=== PATIENT | male | born 1960 | race Caucasian/White ===

== ENCOUNTER 2025-01-12 09:40 | Outpatient (AMB) | payer BC, SELFPAY ==
--- NOTE | 2025-01-12 10:10 | A.SPINEOV_ITS ---
Intake Visit Reasons: neck pain Intake Note: Mr. Slaughter is here today c/o neck pain. 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 He is a gentleman known to Dr. Davidson from anterior cervical fusion C4-5, C5-6 in 2017. 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 About 3 or 4 weeks ago he started to notice some tingling in his right shoulder. It then progressed down into his hands and over the last few weeks has become more involved including leg weakness and gait instability. 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 The patient was discharged and was due to follow up with a local neurosurgeon there, but because of his previous experience and comfort level with Dr. Davidson he came in the office today. He has been maintained on prednisone, a leave and methocarbamol. PMH: The patient reports he has a history of refractory hypertension and is on multiple medications for this but is well controlled at this time. He has a history of a right total hip replacement, bilateral total knees in his mentioned the above anterior cervical fusion. He denies any history of heart disease. He is a lifelong smoker and still continues to smoke but denies any COPD or need for inhalers etc.. Denies any history of liver disease, kidney disease, bleeding disorders, cancer, blood clots. Social hx: He smokes about 3/4 of a pack a day, drinks a few beers a day and drinks a few nips a day, does not use any marijuana. Medications: Amlodipine, olmesartan, fexofenadine, carvedilol, methocarbamol, naproxen, omeprazole, prednisone, vitamin-C, vitamin D3 Allergies: None Physical exam: Awake alert oriented no acute distress, he had to be brought to the exam room today in a wheelchair. He has his walker with him and is able to stand up independently with the help of the walker. He has diffuse weakness throughout his upper and lower extremities which I would rate as 4-5, slightly worse in the iliopsoas muscle groups maybe these are about a 3/5. Diffusely hyperreflexic with Rose's sign and clonus. Imaging review: He has a CT, MRI and x-rays done at the [facility] showing evidence of solid fusion at C4-5 and C5-6 with adjacent segment disease at C3-4 with spinal cord compression and cord signal change. CT scan shows that there does not appear to be any calcification of the disc space at C3-4. Impression: 64-year-old gentleman with previous history of ACDF C4-5 C5-6 for spinal cord compression presents today for evaluation of further rapidly progressing myelopathic symptoms that developed about 3 or 4 weeks ago, getting steadily worse, he is at the point now where he has been using a walker to get around the house, his hands are numb, his arms and legs are weak and his MRI shows spinal cord compression at C3-4 secondary to adjacent segment disease. There is cord signal change suggesting that some degree of these symptoms maybe permanent. The patient had called Dr. Davidson to schedule a few days ago a visit in our office in anticipation of surgery. I am going to go ahead and schedule him for anterior cervical fusion C3-[address] January [address] Davidson is aware and the patient understands the urgency of the surgery. I did admonished the patient that if he is progressing too rapidly and getting worse by the day, he should follow up with the surgeon that he saw in [facility] and have his surgery expedited. He is due to stop the prednisone in a few days. He does not feel as though it is really doing anything or changing his symptoms at all. I told him to stop the naproxen 1 week before surgery. The patient will likely need to see our anesthesia team, or get some of the records from your office to clarify exactly if he has any other systemic disease than what he reports. They may want you to offer a clearance note for him or some kind of risk profile. The patient was given risk and benefits of surgery including but not limited to infection, hematoma, nerve injury, durotomy, weakness, persistent pain. We discussed that if undergoing anterior cervical fusion there may be trachea or esophageal injury, hoarseness, or difficulty swallowing. There is a risk of pseudoarthrosis or instrumentation failure if undergoing cervical fusion. We also reviewed the option to continue with conservative treatment and patient wishes to proceed with surgery. They are aware they should stop NSAIDs 7 days prior to surgery. All questions were answered to the best of our ability. If there is anything about this patient's medical history that we have overlooked or concerns you have about us proceeding with surgery we would appreciate any input you can offer Thank you for allowing us to care for your patient. The total time spent with this visit with this patient was 45 minutes reviewing history, physical exam, cervical MRI imaging review, and implementation of treatment plan or further diagnostic testing Demetrius Davidson MD,PhD [facility] Coding Level of Care Code New Pt Level 4 (51272) Diagnoses Cervical myelopathy G95.9
--- OUTSIDE RECORDS SUMMARY | 2025-01-12 10:21 | XMS_ITS | Encounter Summary ---
Author Organization [facility] Address [address] [place] [address] Care Team Providers Care Loan Originator Name Role Phone Brain Cyr Primary Care Provider [phone] Norma Rogel RN Unavailable Unavailable Encounter Details Date Type Department Care Team (Late st Contact Info) Description 05/11/2023 Scanned Document [facility] [place] at [address] [id number] Orthopedic Surgery, Scan Social History Tobacco Use Types Packs/Day Years Used Date Smoking Tobacco: Former Cigarettes 1 10 0 07/14/1989 - 07/14/1999 Smokeless Tobacco: Never Alcohol Use Standard Drinks/Week Comments Yes 14 (1 standard drink = 0.6 oz pure alcohol) 2 vy, 2 shots liquor nightly, will stop pre op . Last drink 6 days ago. Sex and Gender Information Value Date Recorded Sex Assigned at Male 05/31/2024 9:05 AM EST Legal Sex Male 2:17 PM EDT Gender Identity Male 05/31/2024 9:05 AM EST Sexual Orientation Heterosexual (straight) 05/31 9:05 AM EST documented as of this encounter Plan of Treatment Not on file documented as of this encounter Procedures Procedure Name Priority Date/Time Associated Diagnosis Comments BOOKING SHEETS-SCAN 05/11/2023 documented in this encounter Results * BOOKING SHEETS-SCAN (05/11/2023) us Scan Orthopedic Surgery HX AMB PROCEDURES Final Result documented in this encounter Visit Diagnoses Not on filedocumented in this encounter Care Teams Loan Originator Relationship Specialty Start Date End Date Brain Cyr DO PCP - General 07/14/18 Norma Rogel, LONI CT Registered Nurse 07/14/18 documented as of this encounter
--- OUTSIDE RECORDS SUMMARY | 2025-01-12 10:21 | XMS_ITS | Clinical Summary ---
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 Active amLODIPine (NORVASC) 10 mg tablet take 1 tablet by mouth once daily 90 tablet 4 12/23/2023 Active carvediloL (COREG) 25 mg tablet TAKE 2 TABLETS BY MOUTH TWICE DAILY WITH FOOD 360 tablet 3 02/29/2024 Active ALPRAZolam (XANAX) 0.25 mg tablet 1/2 to 1 tablet po 1-3 x daily prn severe anxiety -do not use daily only for rescue severe anxiety 30 tablet 1 03/14/2024 Active hydroCHLOROthia zide (MICROZIDE) capsule Take 1 capsule (12.5 mg total) by mouth in the morning. 90 capsule 3 05/20/2024 Active olmesartan (BENICAR) 40 mg tablet TAKE 1 TABLET BY MOUTH EVERY MORNING 30 tablet 5 07/08/2024 Active ascorbic acid, vitamin C, (VITAMIN C) 1,000 mg tablet Take 1,000 mg by mouth. Active Active Problems Problem Noted Date Diagnosed Date Obesity (BMI 30-39.9) 08/05/2024 Osteoarthritis of right ankle and foot Elevated PSA 05/14/2023 Assessment & Plan (06/11/2023 8:28 AM EST): Repeat Free Psa 4.4 Acceptable Suspect prostatitis as related to elevated PSA For good measure will repeat in 2 months Recheck as below Assessment & Plan (05/14/2023 9:14 AM EST): Will repeat - with free PSA Differential Dx discussed Prostatitis vs prostate carcinoma Tentative referral to urology once repeat PSA with free PSA back Recheck in 2 weeks time Sprain of deltoid ligament of right ankle 2022 Noncompliance 05/13/2023 Assessment & Plan (05/20/2024 8:12 AM EST): Please consider more regular follow up With multiple medical comorbidity at least 4x yearly Closed fracture of right ankle 01/02/2023 Adenomatous polyp of colon 06/14/2021 Assessment & Plan (05/20/2024 8:15 AM EST): Last colonoscopy 11-27-2023 see formal report In summary No adenomatous polyps colon Assessment & Plan (05/14/2023 9:15 AM EST): Asymptomatic due -- actually called by GI and will schedule earlier Assessment & Plan (04/10/2023 7:53 AM EST): Patient never followed up with GI to schedule colonoscopy See note GI care everywhere 06-29-2021 Please call and follow up with GI over due Assessment & Plan (08/28/2022 9:52 AM EDT): Please reconsider calling GI Will review again at Annual Assessment & Plan (08/08/2021 10:25 AM EST): Please call for surveillance EGD + colonoscopy Patient did not call GI yet Assessment & Plan (06/14/2021 1:08 PM EST): Will set up referral for colonoscopy surveillance Hyperglycemia 06/14/2021 Assessment & Plan (06/14/2021 1:10 PM EST): Will check HBGAic- Best effort weight and diet Recheck in 1 months time or sooner if acute concern Annual physical exam 06/13/2021 Assessment & Plan (05/20/2024 7:36 AM EST): EKG-see today Vaccinations-consider flu- Covid-RSV- Shingrix x 2- TDap Syqo-51-00-2024 Colonoscopy-last 11-27-2023 with EGD Assessment & Plan (04/10/2023 7:59 AM EST): EKG-l See today Llcx-9-11-2023 < never obtained labs > still pending Vaccinations-consider seasonal flu- RSV- Prevnar 20- Shingrix x 2 - Covid XBB1.5 -Tdap Colonoscopy- see GI note Patient never called GI back to ---> schedule 06-29-2021 Assessment & Plan (11/07/2021 11:21 AM EDT): Acceptable risk for surgery Assessment & Plan (06/14/2021 1:07 PM EST): EKG--wnl Labs--reviewed Vaccinations--consider Seasonal flu -Covid-Shingrix Tdap- PCv-13 Colonoscopy--will set up GI referral for surveillance Elevated transaminase level 02/02/2020 Assessment & Plan (02/02/2020 7:54 AM EDT): DC Etoh and --strive for weight loss Osteoarthritis of knee 05/12/2019 Anxiety 04/26/2019 Assessment & Plan (06/08/2023 12:24 PM EST): Would utilize benzo's sparingly to maintain ADl's -->Ativan rescue limited -only Assessment & Plan (05/14/2023 7:29 AM EST): ADL's baseline- please continue sparing use of rescue Benzo only Assessment & Plan (11/27/2022 8:24 AM EDT): Lorazepam rescue --> only Reviewed Rx status acceptable Assessment & Plan (01/16/2022 9:31 AM EDT): Would utilize benzo's sparingly to maintain ADl's Assessment & Plan (06/14/2021 12:05 PM EST): Benzo sparingly rescue discussed control substance standards Assessment & Plan (04/22/2021 2:36 PM EST): Refilled Ativan rescue limited -only Refilled - reviewed situational stress Assessment & Plan (03/01/2020 7:25 AM EDT): As per depression Assessment & Plan (02/02/2020 7:52 AM EDT): Clinically feeling much better -- continue Effexor Assessment & Plan (04/26/2019 9:12 AM EST): Benzo sparingly rescue discussed control substance standards Hypertensive heart disease without heart failure 04/25/2019 Assessment & Plan (06/08/2023 12:20 PM EST): Best BP management - interval imaging -- with TTE Maintenance medication -- reviewed Assessment & Plan (04/10/2023 7:17 AM EST): Please continue compulsive tracking of BP and maintenance medication as reviewed Assessment & Plan (08/28/2022 9:49 AM EDT): Please continue BP medication as reviewed and recheck as above Assessment & Plan (01/16/2022 9:27 AM EDT): Please continue compulsive tracking of BP and maintenance medication as reviewed Assessment & Plan (11/08/2021 8:13 AM EDT): Compulsive --> BP control and medication compliance with pressure support for IKE Best effort weight and diet Assessment & Plan (08/08/2021 10:22 AM EST): Best BP management - interval imaging -- with TTE Maintenance medication -- reviewed Assessment & Plan (06/14/2021 12:01 PM EST): Continue aggressive tx of hypertension and sleep apnea Best effort weight and diet Assessment & Plan (03/01/2020 7:26 AM EDT): Continue aggressive tx of hypertension and sleep apnea Best effort weight and diet Assessment & Plan (02/02/2020 7:53 AM EDT): Aggressive BP management continued Assessment & Plan (01/19/2020 8:49 AM EDT): Aggressive tx of BP Assessment & Plan (04/26/2019 9:09 AM EST): Best BP management please continue maintenance medication Arita's esophagus with esophagitis 04/25/2019 Overview (04/25/2019): egd 10/10/2013 Assessment & Plan (06/08/2023 12:21 PM EST): Presently notes asymptomatic Please continue best Anti GERD management .Mt continue PPI and best effort weight and diet Assessment & Plan (04/10/2023 7:19 AM EST): Best Anti GERD management ==please continue PPI and best effort weight and diet Assessment & Plan (01/16/2022 9:29 AM EDT): Continue interval surveillance endo see last Annual Assessment & Plan (04/26/2019 9:10 AM EST): Best Anti GERD management ==please continue PPI and best effort weight and diet Left hip pain 08/18/2018 Environmental allergies 07/15/2018 Swelling of both hands 06/09/2018 Synovitis 10/21/2017 Assessment & Plan (06/09/2018 2:52 PM EST): Symmetric both hands MCP joint Inflammatory arthritis 10/19/2017 Assessment & Plan (03/01/2020 7:26 AM EDT): Collaborative care with rheumatology [facility] Assessment & Plan (01/19/2020 8:48 AM EDT): [facility] collaborative --- asymptomatic at present Will follow clinically Assessment & Plan (04/26/2019 9:11 AM EST): No sign of flare to date Assessment & Plan (02/15/2019 2:51 PM EDT): 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 Previously improved with prednisone Seen [facility] Rheumatology Assessment & Plan (06/09/2018 2:50 PM EST): Acute exacerbation swelling in both hands Previously improved with prednisone Seen [facility] Rhe[facility] Assessment & Plan (10/27/2017 10:39 AM EDT): Differential Dx discussed in detail including: rheumatoid arthritis vs other small joint symmetrical arthritides Referral to [facility] Rheumatology - Brynn YOUSIF Will taper Prednisone by 5 mg every 3 days until off Recheck in 1 month or sooner if any acute concern Assessment & Plan (10/21/2017 8:35 AM EDT): Again Differential Dx discussed, including: inflammatory arthritis (favoring RA vs other), infectious arthritis (Lyme's testing pending) vs other Continue Prednisone - day 3/10 and Doxycycline day 3/10 Will follow clinically Recheck on Thursday or sooner if any acute concern Assessment & Plan (10/19/2017 5:16 PM EDT): Highly suspect for inflammatory joint disease vs other Differential Dx discussed includes: RA vs undifferentiated Ds Bilateral small joint symmetrical wrist/hands prominent, >> elbows - shoulders - hips FHx of rheumatoid arthritis - paternal, inflammatory bowel - son Will obtain multiple labs and bone scan / X-Ray's Will recheck on Thursday for review or sooner if any acute concern Primary osteoarthritis involving multiple joints 09/30/2017 Assessment & Plan (05/20/2024 8:17 AM EST): To date multiple joint replacement and Sx's for progressive OA Best effort weight - diet and modified ADL's Assessment & Plan (03/14/2024 7:40 AM EDT): To date multiple joint replacement and Sx's for progressive OA Best effort weight - diet and modified ADL's Assessment & Plan (05/14/2023 9:17 AM EST): Sx will be tabled until PSA issue worked up further Please continue modified ADL's Assessment & Plan (04/10/2023 7:20 AM EST): S/p major joint replacement -- best effort weight and diet Continue modified ADL's Assessment & Plan (11/27/2022 8:19 AM EDT): Presently hip more symptomatic - awaiting MACK Coping - working with [facility] Assessment & Plan (11/08/2021 8:16 AM EDT): S/p major joint replacement -- best effort weight and diet Continue modified ADL's Assessment & Plan (06/14/2021 12:02 PM EST): /p RKA-- and RTHA ADl modification Best effort weight and diet Assessment & Plan (04/22/2021 2:17 PM EST): S/p RKA-- and RTHA ADl modification Best effort weight and diet Assessment & Plan (01/19/2020 8:47 AM EDT): S/p TKA-- ADL modification Will follow clinically Assessment & Plan (04/26/2019 9:13 AM EST): Anticipating TKA 12-12 -19 See care everywhere Midlevel clearance Assessment & Plan (10/19/2017 5:01 PM EDT): Modify ADL's Best effort weight and diet Assessment & Plan (10/14/2017 8:50 AM EDT): Modified ADL's Best effort weight and diet Assessment & Plan (09/30/2017 10:12 AM EDT): Modified ADL's Best effort weight and diet Will follow clinically Obstructive sleep apnea syndrome, moderate 09/30 Assessment & Plan (05/20/2024 8:29 AM EST): Was still using old PAP equipment that has since failed -> referral to [facility] for new equipment Assessment & Plan (03/14/2024 9:00 AM EDT): Multiple attempts at upgrading PAP equipment and setting up repeat PAP assessment for known IKE Both scheduled for [facility] and [facility] IKE Assessment & Plan (06/08/2023 12:22 PM EST): Patient has to set up appointment with [facility] Assessment & Plan (05/14/2023 9:17 AM EST): AP use ---> continues albeit older equipment Patient has to set up appointment with [facility] Assessment & Plan (04/10/2023 7:19 AM EST): AP use ---> continues albeit older equipment Patient to inform when ready for repeat sleep study Assessment & Plan (11/27/2022 8:20 AM EDT): PAP use ---> continues albeit older equipment Patient to inform when ready for repeat sleep study Assessment & Plan (08/28/2022 9:50 AM EDT): Request for new equipment - Will make referral to [facility]- pulmonary and continue with best effort weight and diet Assessment & Plan (01/16/2022 9:29 AM EDT): Please continue best effort weight and diet - and pressure support as reviewed in detail with patient Assessment & Plan (11/08/2021 8:16 AM EDT): Please continue pressure support with best effort weight and diet Assessment & Plan (08/08/2021 10:26 AM EST): Please continue pressure support with best effort weight and diet Assessment & Plan (06/14/2021 11:59 AM EST): Continue pressure support Best effort weight and diet Assessment & Plan (03/01/2020 7:28 AM EDT): Please continue -- pressure support and best effort weight and diet Reschedule for CPE Assessment & Plan (02/02/2020 7:52 AM EDT): 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 surveillance 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 for DOT review Assessment & Plan (01/19/2020 8:50 AM EDT): Please continue -- best effort weight and diet Faithful use Assessment & Plan (04/26/2019 9:07 AM EST): Please continue -- pressure support And best effort weight and diet Assessment & Plan (02/15/2019 9:07 AM EDT): Continue pressure support Best effort weight and diet Assessment & Plan (06/09/2018 2:51 PM EST): Continue pressure support Best effort weight and diet Assessment & Plan (10/27/2017 10:30 AM EDT): Continue pressure support Best effort weight and diet Assessment & Plan (10/19/2017 5:00 PM EDT): Continue pressure support Best effort weight and diet Assessment & Plan (10/14/2017 8:39 AM EDT): Continue pressure support Best effort weight and diet Assessment & Plan (09/30/2017 10:15 AM EDT): Continue pressure support Best effort weight and diet Gastroesophageal reflux disease 09/29/2014 Assessment & Plan (05/20/2024 8:16 AM EST): Last EGD 11-27-2023 No GE junction dysplasia or Arita's esophagus See formal report for further Assessment & Plan (06/08/2023 12:22 PM EST): As per Arita's Assessment & Plan (05/14/2023 7:26 AM EST): Presently clinically asymptomatic Please continue maintenance medication and best effort weight and diet Recheck as above Assessment & Plan (04/10/2023 7:19 AM EST): Symptoms appeared controlled - Maintenance medication reviewed -please continue with best effort weight- diet and behavorial modification Assessment & Plan (11/27/2022 8:22 AM EDT): Presently symptoms - controlled please continue maintenance medication and best effort weight and diet Assessment & Plan (08/28/2022 9:51 AM EDT): GERD - symptoms controlled Please continue maintenance medication and best effort weight and diet Assessment & Plan (01/16/2022 9:28 AM EDT): Symptoms appeared controlled - Maintenance medication reviewed -please continue with best effort weight- diet and behavorial modification Assessment & Plan (11/08/2021 8:13 AM EDT): Medication reviewed - Please continue best effort weight and diet Assessment & Plan (08/08/2021 10:23 AM EST): Please continue PPI - acid violet and best effort weight and diet Assessment & Plan (06/14/2021 12:01 PM EST): Please continue PPI and best effort weight and diet Assessment & Plan (04/22/2021 2:39 PM EST): Please continue -- dietary and behavorial modification Assessment & Plan (03/01/2020 7:27 AM EDT): Continue dietary and behavorial modification Assessment & Plan (01/19/2020 8:51 AM EDT): Please continue PPI and best effort weight and diet Assessment & Plan (06/09/2018 2:57 PM EST): Continue PPI Best effort weight and diet Assessment & Plan (10/19/2017 5:01 PM EDT): Continue PPI Best effort weight and diet Assessment & Plan (10/14/2017 8:49 AM EDT): Continue PPI Best effort weight and diet Assessment & Plan (09/30/2017 10:00 AM EDT): Continue PPI's Best effort weight and diet Essential hypertension 09/29/2014 Assessment & Plan (05/20/2024 8:13 AM EST): PAP Assessment & Plan (03/14/2024 7:39 AM EDT): BP noted maintenance medication reviewed Please continue maintenance medication and best effort weight and diet with pressure support Reschedule for Annual due Assessment & Plan (06/08/2023 12:19 PM EST): BP noted maintenance medication reviewed Please continue maintenance medication and best effort weight and diet with pressure support Recheck in 4 months time ort sooner if acute concern Assessment & Plan (05/14/2023 8:53 AM EST): .BP noted maintenance medication reviewed Please continue maintenance medication and best effort weight and diet with pressure support Recheck as above Assessment & Plan (04/10/2023 8:08 AM EST): BP noted maintenance medication reviewed Please continue maintenance medication and best effort weight and diet with pressure support Recheck in 1 months time ort sooner if acute concern Assessment & Plan (11/27/2022 8:21 AM EDT): BP medication reviewed BP acceptable ---> please continue maintenance medication and best effort weight and diet Assessment & Plan (08/28/2022 9:46 AM EDT): BP noted maintenance medication reviewed Please continue maintenance medication and best effort weight and diet with pressure support Recheck in 3 months time ort sooner if acute concern Assessment & Plan (01/16/2022 9:27 AM EDT): BP -noted Medication reviewed in detail with patient Optimal value reviewed with patient Please continue maintenance medication and best effort weight and diet Assessment & Plan (11/08/2021 7:30 AM EDT): BP noted - optimal goal SBP 100-130 DBP << 80 Please continue maintenance medication and best effort weight and diet Assessment & Plan (08/08/2021 10:21 AM EST): BP-- noted excellent -- please continue maintenance medication and best effort weight and diet Recheck in 4 months time or sooner if acute oncern Assessment & Plan (06/14/2021 12:00 PM EST): BP noted - optimal goal SBP 100-130 DBP << 80 Please continue maintenance medication and best effort weight and diet Assessment & Plan (04/22/2021 2:35 PM EST): BP - noted - best effort weight and diet Please continue maintenance medication and reschedule for CPE Assessment & Plan (03/01/2020 7:27 AM EDT): BP noted --please continue maintenance medication and best effort weight and diet Assessment & Plan (02/02/2020 7:51 AM EDT): BP noted Please continue maintenance medication Assessment & Plan (01/19/2020 8:48 AM EDT): BP excellent -- multiple medication will continue best effort weight and diet Recheck for CPE in 1-3 months time Assessment & Plan (04/26/2019 9:06 AM EST): BP noted - optimal goal SBP 100-130 DBP << 80 Please continue maintenance medication and best effort weight and diet Assessment & Plan (02/15/2019 9:07 AM EDT): BP noted today Please track BP at home Please continue maintenance medication as reviewed with patient Best effort weight and diet Assessment & Plan (06/09/2018 2:48 PM EST): BP noted today is elevated Please, continue tracking BP at home Best effort weight and diet Continue maintenance medication Assessment & Plan (10/27/2017 10:30 AM EDT): BP noted today Please, continue tracking BP at home Best effort weight and diet Continue maintenance medication Assessment & Plan (10/19/2017 5:00 PM EDT): BP noted today Please, continue tracking BP at home Best effort weight and diet Continue maintenance medication Assessment & Plan (10/14/2017 8:49 AM EDT): BP noted today is improved Please, continue tracking BP at home Best effort weight and diet Continue maintenance medication Assessment & Plan (09/30/2017 10:00 AM EDT): BP noted today is elevated Please, continue tracking BP at home Best effort weight and diet Continue maintenance medication Resolved Problems Problem Noted Date Diagnosed Date Resolved Date Recurrent major depressive d isorder, in partial remission 02/27/2020 05/05/2023 Assessment & Plan (11/08/2021 8:18 AM EDT): Ongoing situational stress-- good support sytem Only anxiety rescue med po prn benzo limited use ADl's baseline -- will continue to follow Stable - Sx pending Severe episode of recurrent major depressive disorder, without psychotic features 09/30/201703/2022 Assessment & Plan (03/01/2020 7:38 AM EDT): ADl's much improved- please continue medication and reschedule Recheck in 3 weeks time and also ---> CPE Assessment & Plan (02/02/2020 7:51 AM EDT): Clinically improved-please continue Effexor and recheck in 1 months time Assessment & Plan (01/19/2020 8:52 AM EDT): Will change to - Wellbutrin 150 mg 1 tablet po daily and recheck in 2 weeks time DC Effexor Assessment & Plan (10/19/2017 5:01 PM EDT): Continue maintenance medication Will follow clinically Assessment & Plan (10/14/2017 9:00 AM EDT): Medication intolerance Discontinue Zoloft immediately Will change to Effexor - 37.5 mg 1 tablet once a day. Start Effexor after intolerance symptoms - joint pain - abates. Recheck in 1 week or sooner if any acute concern Assessment & Plan (09/30/2017 10:02 AM EDT): Patient intolerant to Celexa, DC. Start Zoloft 50 mg PO daily Immunizations Immunization Administration Dates Next Due Influenza TIV (IM) 04/13/2015 Influenza, Quadrivalent 04/26/2019,07/14/2017, Influenza, Unspecified 04/01/2019 Pneumococcal Conjugate PCV-13 04/17/2016 Family History Medical History Relation Comments Hypertension Brother 1 Sleep apnea Brother 1 Hypertension Brother 2 Heart disease Father Rheum arthritis Father No Known Problems Maternal Grandfather No Known Problems Maternal Grandmother Stomach cancer Mother No Known Problems Paternal Grandfather Heart attack Paternal Grandmother No Known Problems Son 1 No Known Problems Son 2 Relation Status Comments Brother 1 Alive Brother 2 Alive Father Maternal Grandfather Maternal Grandmother Mother Paternal Grandfather Paternal Grandmother Sister Alive Son 1 Alive Son 2 Alive Social History Tobacco Use Types Packs/Day Years Used Date Smoking Tobacco: Former Cigarettes 0.8 18 1 980 - 1998 Smokeless Tobacco: Never Tobacco Cessation:Counseling Given: No Alcohol Use Standard Drinks/Week Comments Yes 0 (1 standard drink = 0.6 oz pur e alcohol) daily [address] [facility] Utilities Answer Date Recorded In the past 12 months has th e [employer], gas, oil, or water [employer] threatened to shut off services in your home? No 05/20/2024 Overall Financial Resource Strain (CARDIA) Answe r Date Recorded How hard is it for you to pa y for the very basics like food, housing, medical care, and heating? Not hard at all 05/20/2024 PHQ-2 Answer Date Recorded PHQ-2 Score 0 05/20/2024 PRAPARE - Transportation Answer Date Re corded In the past 12 months, has l ack of transportation kept you from medical appointments or from getting medications? No 05/20/2024 Lack of Transportation (Non-Medical) Not on file 05/20/2024 Housing Stability Vital Sign Answer Stoney e Recorded In the last 12 months, was t here a time when you were not able to pay the mortgage or rent on time? No 05/20/2024 In the past 12 months, how m any times have you moved where you were living? 0 05/20/2024 At any time in the past 12 m [facility], were you homeless or living in a chcf (including now)? No 05/20/2024 Diaper Assistance Answer Date Recorded Are you worried that when yo u have your baby, you may have trouble paying for enough diapers to change your baby as often as you would like? No 04/10/2023 If you have a child in diape rs, do you ever feel that you do not have enough diapers to change your child as often as you would like? 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 Not on file Not on file Last Filed Vital Signs Vital Sign Reading Time Taken Comments Blood Pressure 108/68 08/05/2024 3:37 PM EST Pulse 72 08/05/2024 3:37 PM EST Temperature 37 C (98.6 F) 10/18/2022 9:10 AM EDT Respiratory Rate 14 08/05/2024 3:37 PM EST Oxygen Saturation 97% 08/05/2024 3:37 PM EST Inhaled Oxygen Concentration - - Weight 102 kg (225 lb 3.2 oz) 08/05/2024 3:37 PM EST Height 167.6 cm (5' 6 ) 10/18/2022 9:10 AM EDT Body Mass Index 36.35 10/18/2022 9:10 AM EDT Plan of Treatment Upcoming Encounters Date Type Department Care Team (Kiersten st Contact Info) Description 02/03/2025 10:30 AM EDT Office Visit [facility] [address], [place] [phone] Alo Mcgrath PA [address] [facility] [address] [place] [address] Health Maintenance Due Date Last Done Comments CT Colonography 1961 FIT-DNA (Cologuard) 1961 FIT 1961 FOBT 1961 Flex Sigmoidoscopy - 5y 1961 HIV Screening 1961 DTaP,Tdap,and Td Vaccines (1 - Tdap) 12/15/1979 Hepatitis C Screening 12/15/1979 Zoster Vaccines (1 of 2) 12/15/2011 Pneumococcal Vaccine, 50+ Years (2 of 2 - PPSV23) 04/17/2017 04/17/2016 COVID-19 Vaccine ( - season) 2024 Influenza Vaccine (#1) 2025 9, 04/01/2019, 07/14/2017, Additional history exists Colonoscopy 11/25/2033 11/26/2023, 07/22/2012 Colorectal Cancer Screening 11/25/2033 HPV Vaccines Aged Out No longer eligi ble based on patient's age to complete this topic Hepatitis A Vaccines Aged Out No long er eligible based on patient's age to complete this topic MMR Vaccines Aged Out No longer eligi ble based on patient's age to complete this topic Meningococcal Vaccine Aged Out No tone conner eligible based on patient's age to complete this topic Procedures Procedure Name Priority Date/Time Associated Diagnosis Comments COLONOSCOPY Routine 07/22/2012 from Last 3 Months or Most Recently Relevant to Health Maintenance Results * Colonoscopy (07/22/2012) Colonoscopy completed us Historical Provider HEALTH MAINTENANCE Final Result from Last 3 Months or Most Recently Relevant to Health Maintenance Insurance [facility] HEALTH INSURANCE EXCHANGE - GROUP Care Teams Windows Application Administrator Relationship Specialty Start Date End Date Brain Cyr DO PCP - General 08/17/17 Izabella Francis APRN PCP - Insurance Payer PCP 06/01/23
== END 2025-01-12 10:58 | disposition home or self-care (01) ==
PROVIDERS: PCP Family Medicine; Visit Provider Physician Assistant
DX: G95.9 Disease of spinal cord, unspecified (principal)
CPT/HCPCS: 99204

== ENCOUNTER → 2025-01-19 13:56 | Outpatient (BNV) | payer BC, SELFPAY | PROVIDERS: Visit Provider Internal Medicine Cardiovascular Disease | DX: R00.1 Bradycardia, unspecified (principal) | CPT/HCPCS: 93010 ==

== ENCOUNTER 2025-01-24 10:27 | Day surgery (SDC) | payer BC, SELFPAY ==
[2025-01-18 14:53] VITALS: BMI 38.4
--- OUTSIDE RECORDS SUMMARY | 2025-01-18 16:04 | XMS_ITS | Clinical Summary ---
Author Organization [facility] Address [address] [place] [address] Care Team Providers Care Intake Coordinator Name Role Phone Ger Brain Payan DO Primary Care Provider Izabella Hartman APRN Unavailable [phone] Allergies Active Allergy Reactions Criticality Noted Date [...] Vaccinations-consider flu- Covid-RSV- Shingrix x 2- TDap Ldxm-02-53-2024 Colonoscopy-last 11-27-2023 with EGD Assessment & Plan (04/10/2023 7:59 AM EST): EKG-l See today Nvba-3-14-2023 < never obtained labs > still pending [...] 7:26 AM EDT): Collaborative care with rheumatology [facility] Assessment & Plan (01/19/2020 8:48 AM EDT): [facility] collaborative --- asymptomatic at present Will follow clinically Assessment & Plan (04/26/2019 9:11 AM EST): No sign of flare to date Assessment & Plan (02/15/2019 2:51 PM EDT): 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 Previously improved with prednisone Seen [facility] Rheumatology Assessment & Plan (06/09/2018 2:50 PM EST): Acute exacerbation swelling in both hands Previously improved with prednisone Seen [facility] Rheumatology Assessment & Plan (10/27/2017 10:39 AM EDT): Differential Dx discussed in detail including: rheumatoid arthritis vs other small joint symmetrical arthritides Referral to [facility] Rheumatology - Brynn YOUSIF Will taper Prednisone [...] - awaiting MACK Coping - working with [facility] Assessment & Plan (11/08/2021 8:16 AM EDT): [...] that has since failed -> referral to [facility] for new equipment Assessment & Plan (03/14/2024 9:00 AM EDT): Multiple attempts at upgrading PAP equipment and setting up repeat PAP assessment for known IKE Both scheduled for [facility] pulmonary and [facility] IKE Assessment & Plan (06/08/2023 12:22 PM EST): Patient has to set up appointment with [facility] Assessment & Plan (05/14/2023 9:17 AM EST): AP use ---> continues albeit older equipment Patient has to set up appointment with [facility] Assessment & Plan (04/10/2023 7:19 AM EST): AP use ---> continues albeit older equipment Patient to inform when ready for repeat sleep study Assessment & Plan (11/27/2022 8:20 AM EDT): PAP use ---> continues albeit older equipment Patient to inform when ready for repeat sleep study Assessment & Plan (08/28/2022 9:50 AM EDT): Request for new equipment - Will make referral to [facility]- pulmonary and continue with best effort weight [...] pur e alcohol) daily 4 servings daily [facility] Utilities Answer Date Recorded In the past 12 months has th e Spokeable, gas, oil, or water [employer] threatened to shut off services in your [...] any time in the past 12 m [facility], were you homeless or living in a senior living (including now)? No 05/20/2024 Diaper Assistance Answer [...] 10:30 AM EDT Office Visit [facility] [address], [place] [phone] Alo Mcgrath PA [address] [facility] [address] [place] [address] Health Maintenance Due Date Last Done Comments [...] Most Recently Relevant to Health Maintenance Insurance [facility] HEALTH INSURANCE EXCHANGE - GROUP Care Teams Intake Coordinator Relationship Specialty Start Date End Date Brain Cyr DO PCP - General 08/17/17 Izabella Francis APRN PCP - Insurance Payer PCP 06/01/23
--- OUTSIDE RECORDS SUMMARY | 2025-01-18 16:04 | XMS_ITS | Encounter Summary ---
Author Organization [facility] Address [address] [place] [id number] Care Team Providers Care Ballet Teacher Name Role Phone Brain Cyr DO Primary Care Provider [phone] Norma Rogel RN Unavailable Unavailable Encounter Details Date Type Department Care Team (Late st Contact Info) Description 05/11/2023 Scanned Document [facility] at [address] [phone] Orthopedic Surgery, Scan Social History [...] as of this encounter Plan of Treatment Upcoming Encounters Date Type Department Care Team (Late st Contact Info) Description 02/06/2025 8:45 AM EDT Consult [facility] [address] [phone] Cameron Alberts MD [address] [place] [id number] documented as of this encounter Procedures Procedure Name Priority Date/Time Associated Diagnosis Comments BOOKING SHEETS-SCAN 05/11/2023 documented in this encounter Results * BOOKING SHEETS-SCAN (05/11/2023) us Scan Orthopedic Surgery HX AMB PROCEDURES Final Result documented in this encounter Visit Diagnoses Not on filedocumented in this encounter Care Teams Ballet Teacher Relationship Specialty Start Date End Date Brain Cyr DO PCP - General 07/14/18 Norma Rogel, LONI [place] Registered Nurse 07/14/18 documented as of this encounter
--- OUTSIDE RECORDS SUMMARY | 2025-01-18 16:04 | XMS_ITS ---
Author Name [facility] Organization Unknown Results Test Name/Text Value Interpretation Date Range Source Anion Gap Bld-sCnc 18.0 Above high normal 01/09/2025 7 - 17 [facility] ALT SerPl-cCnc 32.0 U/L 01/09/2025 10 - 55 [facility] T Albumin SerPl-mCnc 3.9 g/dL 01/09/2025 3.4 - 4.8 [facility] BUN SerPl-mCnc 17.0 mg/dL 01/09/2025 8 - [address] GFR/BSA.pred SerPlBld LTK-DQP-ZyEOge >90.0 01/09/2025 59 - [facility] Glucose SerPl-mCnc 235.0 mg/dL Above high normal 01/09/2025 65 - 99 [facility] BUN/Creat SerPl 24.0 Ratio 01/09/2025 10 - 25 [facility] Potassium SerPl-sCnc 3.7 mmol/L 01/09/2025 3.4 - 5 .3 [facility] Chloride SerPl-sCnc 104.0 mmol/L 01/09/2025 98 - 1 07 [facility] Bilirub SerPl-mCnc 0.5 mg/dL 01/09/2025 0.2 - 1 [facility] ALP SerPl-cCnc 87.0 U/L 01/09/2025 45 - 128 [facility] T Creat SerPl-mCnc 0.7 mg/dL 01/09/2025 0.5 - 1.3 [facility] Globulin Ser Calc-mCnc 3.1 g/dL 01/09/2025 1.5 - 3.9 [facility] AST SerPl-cCnc 40.0 U/L 01/09/2025 10 - 55 [facility] T Albumin/Glob SerPl 1.3 Ratio 01/09/2025 [facility] CO2 SerPl-sCnc 22.0 mmol/L 01/09/2025 22 - 33 [facility] Calcium SerPl-mCnc 9.3 mg/dL 01/09/2025 8.7 - 10.5 [facility] Prot SerPl-mCnc 7.0 g/dL 01/09/2025 6.3 - 8.[address] Sodium SerPl-sCnc 144.0 mmol/L 01/09/2025 136 - 14 5 [facility] Magnesium SerPl-mCnc 2.0 mg/dL 01/09/2025 1.6 - 2. 7 [facility] Platelet num Bld Auto 194.0 Thou/uL 01/09/2025 150 - 450 [facility] Neutrophils/leuk NFr Bld Auto 84.4 % 01/09/2025 [facility] Hgb Bld-mCnc 14.8 g/dL 01/09/2025 13 - 17.7 [facility] PMV Bld Auto 10.4 fL 01/09/2025 7.5 - 12.5 [facility] RDW RBC Auto-Rto 13.1 % 01/09/2025 11.5 - 14.5 [facility] Eosinophil num Bld Auto 0.0 Thou/uL 01/09/2025 0 - 0.7 [facility] RBC num Bld Auto 3.84 Mil/uL Below low normal 01/09/2025 4.5 - 6.2 [facility] Basophils/leuk NFr Bld Auto 0.1 % 01/09/2025 [facility] Imm Granulocytes num Bld Auto 0.14 Thou/uL Above high normal 01/09/2025 0 - 0.1 [facility] Hct VFr Bld Auto 40.8 % 01/09/2025 39 - 54 [facility] Basophils num Bld Auto 0.01 Thou/uL 01/09/2025 0 - 0.2 [facility] Eosinophil/leuk NFr Bld Auto 0.0 % 01/09/2025 [facility] MCHC RBC Auto-mCnc 36.3 g/dL Above high normal 01/09/2025 30 - 36 [facility] MCV RBC Auto 106.0 fL Above high normal 01/09/2025 80 - 100 [facility] Lymphocytes/leuk NFr Bld Auto 9.8 % 01/09/2025 [facility] Lymphocytes num Bld Auto 1.08 Thou/uL Below low normal 01/09/2025 1.5 - 4.5 [facility] Neutrophils num Bld Auto 9.33 Thou/uL Above high normal 01/09/2025 2 - 7.5 [facility] WBC num Bld Auto 11.1 Thou/uL Above high normal 01/09/2025 4 - 11 [facility] MCH RBC Qn Auto 38.5 pg Above high normal 01/09/2025 27 - 31 [facility] Monocytes num Bld Auto 0.49 Thou/uL 01/09/2025 0.2 - 1.5 [facility] Monocytes/leuk NFr Bld Auto 4.4 % 01/09/2025 [facility] Imm Granulocytes/leuk NFr Bld Auto 1.3 % 01/09/2025 [facility] Borrelia burgdorferi Ab.IgG+IgM Negative 01/11/2025 - [facility] History of Medication Use Medication Directions Dispensed Refills Start Date End Date Stat kwywth-rijnvpgza-elitowka m sulfates (Suprep Bowel Prep Kit) 17.5-3.13-1.6 GM/177ML Solution solution Take two 177 mL bottles as directed 08/06/2023 4 active meloxicam (MOBIC) 15 mg tablet 05/12/2023 active ALPRAZolam (XANAX) 0.25 mg tablet 1/2 to 1 tablet po 1-3 x daily prn severe anxiety -do not use daily only for rescue severe anxiety 12/09/2022 4 active hydroCHLOROthiazide (MICROZIDE) capsule TAKE 1 CAPSULE(12.5 MG) BY MOUTH IN THE MORNING 06/05/2021 4 active LORazepam (ATIVAN) 0.5 mg tablet Take 1/2 to 1 tablet po 1-3 x daily for severe anxiety prn rescue 04/22/2021 4 active carvediloL (COREG) 25 mg tablet TAKE 2 TABLETS BY MOUTH TWICE DAILY WITH FOOD 02/26/2020 4 active amLODIPine (NORVASC) 10 MG tablet Take 10 mg by mouth daily. Take day of surgery active Ascorbic Acid (VITAMIN C) 1000 MG tablet Take 1,000 mg by mouth daily. Already stopped active ascorbic acid, vitamin C, (VITAMIN C) 1,000 mg tablet Take 1,000 mg by mouth. active hydrochlorothiazide (MICROZIDE) 12.5 MG capsule Take 12.5 mg by mouth daily. Do not take day of surgery active olmesartan (BENICAR) 40 MG tablet Take 40 mg by mouth daily. Do not take day of surgery active OMEprazole (PriLOSEC) 20 MG capsule Take 20 mg by mouth every morning before breakfast. Take day of surgery active omeprazole (PriLOSEC) 40 mg capsule Take 40 mg by mouth daily. active Allergies Allergen Reaction Severity Comment Documented Date Source Statu s SERTRALINE OTHER (SEE COMMENTS) 10/14/2017 [facility] active NO KNOWN ALLERGIES 06/05/2014 [facility] ac tive Problems Problem Status Onset Date Problem Type Date of Resoluti on Source Osteoarthritis of knee active 2019-05-12 ProblemAct [facility] Closed fracture of right ankle active 2023-01-02 ProblemAct [facility] Swelling of both hands active 2018-06-09 ProblemAct [facility] Arita's esophagus with esophagitis active 2019-04-25 ProblemAct [facility] Sprain of deltoid ligament of right ankle active 2023-05-14 ProblemAct [facility] Primary osteoarthritis involving multiple joints active 2017-09-[address] [facility] Gastroesophageal reflux disease active 2014-09-29 ProblemAct [facility] Synovitis active 2017-10-21 ProblemAct [facility] Adenomatous polyp of colon active 2021-06-14 ProblemAct [facility] Noncompliance active 2023-05-13 ProblemAct [facility] Hyperglycemia active 2021-06-14 ProblemAct [facility] Obesity (BMI 30-39.9) active 2024-08-05 ProblemAct [facility] Anxiety active 2019-04-26 ProblemAct [facility] Inflammatory arthritis active 2017-10-19 ProblemAct [facility] Osteoarthritis of right ankle and foot active 2024-05-31 ProblemAct [facility] Hypertensive heart disease without heart failure active 2019-04-25 ProblemAct [facility] Essential hypertension active 2014-09-29 ProblemAct [facility] Obstructive sleep apnea syndrome, moderate active 2017-09-30 ProblemAct [facility] Elevated transaminase level active 2020-02-02 ProblemAct [facility] Elevated PSA active 2023-05-14 ProblemAct [facility] Left hip pain active 2018-08-18 ProblemAct [facility] Environmental allergies active 2018-07-15 ProblemAct [facility] HTN (hypertension) active 2018-07-15 ProblemAct [facility] Closed fracture of right ankle with routine healing active 2023-01-02 ProblemAct [facility] Sleep apnea active 2008-06-01 ProblemAct [facility] Hx of adenomatous polyp of colon active 2023-08-05 ProblemAct [facility] GERD (gastroesophageal reflux disease) active 2018-07-15 ProblemAct [facility] Hip pain, chronic, right active 2018-08-18 ProblemAct [facility] Anxiety active 2018-08-10 ProblemAct [facility] History of Arita's esophagus active 2023-08-05 ProblemAct [facility] Immunizations Vaccine Date Source Lot Number Status Influenza, Quadrivalent 04/26/2019 [facility] [id number] c ompleted Influenza, Unspecified 04/01/2019 [facility] co mpleted Influenza, Quadrivalent 07/14/2017 [facility] [id number] c ompleted Influenza, Quadrivalent 04/17/2016 [facility] [id number] c ompleted Pneumococcal Conjugate PCV-13 04/17/2016 [facility] [id number] completed Influenza TIV (IM) 04/13/2015 [facility] [id number] comple brijesh Encounters Encounter Type Encounter Reason Primary Diagnosis Location Date Observation Spinal stenosis, cervical region Spinal stenosis, cervical region [facility] 01/09/2025 Emergency Dorsalgia, unspecified Dorsalgia, unspecified [facility] 01/07/2025 Ambulatory Obstructive sleep apnea (adult) (pediatr Obstructive sleep apnea (adult) (pediatric) [facility] 08/17/2024 Ambulatory Obstructive sleep apnea (adult) (pediatr Obstructive sleep apnea (adult) (pediatric) [facility] 08/05/2024 Ambulatory Obstructive sleep apnea (adult) (pediatr Obstructive sleep apnea (adult) (pediatric) [facility] 07/19/2024 Ambulatory Primary osteoarthritis, right ankle and foot Primary osteoarthritis, right ankle and foot [facility] 05/31/2024 Ambulatory Encounter for general adult medical exam Encounter for general adult medical examination without abnormal findings [facility] 05/20/2024 Ambulatory Essential (primary) hypertension Essential (primary) hypertension [facility] 03/14/2024 Ambulatory Encounter for screening for malignant neoplasm of colon Encounter for screening for malignant neoplasm of colon [facility] 11/26/2023 Ambulatory Primary osteoarthritis, right ankle and foot Primary osteoarthritis, right ankle and foot [facility] 11/03/2023 Ambulatory Gastro-esophageal reflux disease without esophagitis Gastro-esophageal reflux disease without esophagitis [facility] 08/06/2023 Ambulatory Essential (primary) hypertension Essential (primary) hypertension [facility] 06/11/2023 Ambulatory [facility] 06/02/2023 Ambulatory Other fracture of right lower leg, subsequent encounter for closed fracture with routine healing Other fracture of right lower leg, subsequent encounter for closed fracture with routine healing [facility] 06/02/2023 Ambulatory Obstructive sleep apnea (adult) (pediatr Obstructive sleep apnea (adult) (pediatric) [facility] 05/14/2023 Ambulatory Encounter for general adult medical exam Encounter for general adult medical examination without abnormal findings [facility] 04/10/2023 Ambulatory [facility] 01/06/2023 Ambulatory Other fracture of right lower leg, subsequent encounter for closed fracture with routine healing Other fracture of right lower leg, subsequent encounter for closed fracture with routine healing [facility] 01/06/2023 Ambulatory [facility] 12/09/2022 Ambulatory Displaced fractu re of lateral malleolus of right fibula, subsequent encounter for closed fracture with routine healing [facility] 12/09/2022 Ambulatory [facility] 11/28/2022 Ambulatory Aftercare follow ing joint replacement surgery [facility] 11/28/2022 Ambulatory Obstructive slee p apnea (adult) (pediatric) [facility] 11/27/2022 Ambulatory [facility] 11/17/2022 Ambulatory Torus fracture o f lower end of right fibula, subsequent encounter for fracture with routine healing [facility] 11/17/2022 Ambulatory [facility] 10/18/2022 Ambulatory Unspecified inju ry of right ankle, initial encounter [facility] 10/18/2022 Ambulatory Essential (prima ry) hypertension [facility] 08/28/2022 Ambulatory Prediabetes [facility] 08/26/2022 Ambulatory Prediabetes [facility] 01/17/2022 Ambulatory Essential (prima ry) hypertension [facility] 01/16/2022 Ambulatory Essential (prima ry) hypertension [facility] 01/14/2022 Ambulatory Myogenic ptosis of bilateral eyelids [facility] 11/19/2021 Ambulatory Contact with and (suspected) exposure to covid-19 [facility] 11/14/2021 Ambulatory Encounter for ot her preprocedural examination [facility] 11/08/2021 Ambulatory Essential (prima ry) hypertension [facility] 08/08/2021 Ambulatory Hyperglycemia, unspecified [facility] 08/07/2021 Ambulatory Encounter for ge neral adult medical examination without abnormal findings [facility] 06/14/2021 Ambulatory Essential (prima ry) hypertension [facility] 04/22/2021 Care Team Organization Name Specialty Phone Email Start Date End Da te [facility] 01/12/2025 [facility] 08/18/2024 [facility]14[facility] 04/03/2023 [facility] 10/18/2022 12/25/2024 [facility] JAY JAY [facility] Primary [facility] 01/18/20 [facility] 11/19/2021 11/19/2021 [email or web address] J[facility] 11/19/2021 [facility] 11/14/2021 11/14/2021 [facility] 11/14/2021 [facility] 04/22/20 21 11/08/2021
--- NOTE | 2025-01-19 | ECG_ITS ---
Test Reason : preop Blood Pressure : */* mmHG Vent. Rate : 51 BPM Atrial Rate : 51 BPM P-R Int : 164 ms QRS Dur : 94 ms QT Int : 462 ms P-R-T Axes : 60 -4 -4 degrees QTcB Int : 425 ms Sinus bradycardia Possible Inferior infarct , age undetermined Abnormal ECG No previous ECGs available Referred By: Renee Alba Electronically Signed By: PRESTON AUGUSTIN MD
[2025-01-19 12:59] VITALS: BMI 38.3
[2025-01-19 13:03] VITALS: BP 156/55; PULSE 58; RESP 16; O2SAT 97
--- NOTE | 2025-01-19 13:26 | HO.ANESPROP2 ---
Documented by User: Renee Alba NP 01/19/25 13:38 HPI - Anesthesia Eval Consult details Narrative: 64yo M for C3-4 Ant Cerv Discectomy w/ fusion, 01/24/25 No recent illness No CP/SOB with very limited activity d/t pain/numbness from cervical disease Smoker: ~3/4ppd x 3 years (had quit for 24 years prior to that) IKE: CPAP QHS Daily ETOH: Multiple nips and beers daily - no ETOH for the week and denies symptoms of withdrawal GERD: ppi rare Long facial hair, encouraged trim - pt declines - requests taped up and out of the way [facility] Active Problems Active Problems: All Active Problems Cervical myelopathy (Acute) Past Medical History Medical History Arthritis Back pain Weakness of both upper extremities Seasonal allergies No natural teeth Daily consumption of alcohol Smoker Hx of hyperglycemia Osteoarthritis Dependent on walker for ambulation Hx of fracture of pelvis Thyroid nodule IKE on CPAP Obesity Hypertensive heart disease GERD (gastroesophageal reflux disease) HTN (hypertension) Anxiety Family History Family history of problems with anesthesia: No Surgical History Surgical History History of total bilateral knee replacement History of right hip replacement Hx of colonoscopy Hx of cervical spine surgery (2016) History of esophagogastroduodenoscopy (EGD) (2013) History of Problems with Anesthesia: No Social History Social History Household Members Other:: sometimes cousin stays with him Are you a primary career services director to a significant other at home: No Do you presently have visiting nurse or other home services: No Patient Tobacco Use Status: Current everyday Tobacco user Tobacco use type: Cigarette Cigarettes Per Day: 15 Smoked in Last 30 Days: Yes Patient Interested in Nicotine Replacement: No Use of substances other than those prescribed or required for medical reasons: No Have you been hit, kicked, punched, or otherwise hurt by someone within the past year? If so, by whom?: No Are you DNR?: No Advance Directives: No Advance Directives Information Provided: Yes Advance Directives on File: No Poor oral hygiene: Yes Meds Allergies Allergy/AdvReac Type Severity Reaction Status Date / Time No Known Allergies Allergy Verified 01/24/25 10:42 Home Medications ?Medication ?Instructions ?Recorded ?Confirmed ?Last Taken ?Type alprazolam 0.25 mg tablet (Xanax) 0.25 mg PO TID PRN Anxiety 01/18/25 01/24/25 01/24/25 History amlodipine 10 mg tablet 10 mg PO DAILY 01/18/25 01/24/25 01/24/25 History carvedilol 25 mg tablet 50 mg PO BID 01/18/25 01/24/25 01/24/25 History fexofenadine 180 mg tablet 180 mg PO DAILY PRN Allergy 01/18/25 01/24/25 01/24/25 History Symptoms hydrochlorothiazide 12.5 mg tablet 12.5 mg PO DAILY 01/18/25 01/24/25 Unknown History naproxen 500 mg tablet 500 mg PO BID PRN pain 01/18/25 01/24/25 Unknown History olmesartan 40 mg tablet 40 mg PO QAM 01/18/25 01/24/25 Unknown History omeprazole 40 mg capsule,delayed 40 mg PO DAILY PRN Acid Reflux 01/18/25 01/24/25 Unknown History release ascorbic acid (vitamin C) 250 mg 250 mg PO DAILY 01/19/25 01/24/25 Unknown History tablet (Vitamin C) methocarbamol 750 mg tablet 750 mg PO BID PRN Muscle Spasm 01/19/25 01/24/25 Unknown History Exam Height,Weight and Vital Signs: Height 5 ft 4 in Weight 101.1 kg Last Vital Signs Pulse 58 01/19/25 13:03 Resp 16 01/19/25 13:03 BP 156/55 H 01/19/25 13:03 Pulse Ox 97 01/19/25 13:03 O2 Del Method Room Air 01/19/25 13:03 Airway Mallampati Class: II TM Dist: >3cm Neck ROM: Limited Loose/Missing/Broken Teeth: Yes (edentulous) Heart: RRR Lungs: CTAB Assessment and Plan Assessment Anesthesia Assessment: Anesthesia Plan Discussed, Smoking Cess. Discussed and PAT Visit Final Anesthetic Review Family History of Problems with Anesthesia: No History of Problems with Anesthesia: No Documented by User: Sanya Zaragoza MD 01/24/25 16:17 [facility] Past Medical History Medical History Arthritis Back pain Weakness of both upper extremities Seasonal allergies No natural teeth Daily consumption of alcohol Smoker Hx of hyperglycemia Osteoarthritis Dependent on walker for ambulation Hx of fracture of pelvis Thyroid nodule IKE on CPAP Obesity Hypertensive heart disease GERD (gastroesophageal reflux disease) HTN (hypertension) Anxiety Surgical History Surgical History History of total bilateral knee replacement History of right hip replacement Hx of colonoscopy Hx of cervical spine surgery (2016) History of esophagogastroduodenoscopy (EGD) (2013) Social History Social History Household Members Other:: sometimes cousin stays with him Are you a primary career services director to a significant other at home: No Do you presently have visiting nurse or other home services: No Patient Tobacco Use Status: Current everyday Tobacco user Tobacco use type: Cigarette Cigarettes Per Day: 15 Smoked in Last 30 Days: Yes Patient Interested in Nicotine Replacement: No Use of substances other than those prescribed or required for medical reasons: No Have you been hit, kicked, punched, or otherwise hurt by someone within the past year? If so, by whom?: No Are you DNR?: No Advance Directives: No Advance Directives Information Provided: Yes Advance Directives on File: No Poor oral hygiene: Yes Meds Allergies Allergy/AdvReac Type Severity Reaction Status Date / Time No Known Allergies Allergy Verified 01/24/25 10:42 Home Medications ?Medication ?Instructions ?Recorded ?Confirmed ?Last Taken ?Type alprazolam 0.25 mg tablet (Xanax) 0.25 mg PO TID PRN Anxiety 01/18/25 01/24/25 01/24/25 History amlodipine 10 mg tablet 10 mg PO DAILY 01/18/25 01/24/25 01/24/25 History carvedilol 25 mg tablet 50 mg PO BID 01/18/25 01/24/25 01/24/25 History fexofenadine 180 mg tablet 180 mg PO DAILY PRN Allergy 01/18/25 01/24/25 01/24/25 History Symptoms hydrochlorothiazide 12.5 mg tablet 12.5 mg PO DAILY 01/18/25 01/24/25 Unknown History naproxen 500 mg tablet 500 mg PO BID PRN pain 01/18/25 01/24/25 Unknown History olmesartan 40 mg tablet 40 mg PO QAM 01/18/25 01/24/25 Unknown History omeprazole 40 mg capsule,delayed 40 mg PO DAILY PRN Acid Reflux 01/18/25 01/24/25 Unknown History release ascorbic acid (vitamin C) 250 mg 250 mg PO DAILY 01/19/25 01/24/25 Unknown History tablet (Vitamin C) methocarbamol 750 mg tablet 750 mg PO BID PRN Muscle Spasm 01/19/25 01/24/25 Unknown History Assessment and Plan Final Anesthetic Review ASA Class: III Final Preanesthetic Review: No Changes in Pt Med Stat, Meds/Allgs Chart Reviewed, Consent Obtained/Reviewed and Anes Risks/Benef Reviewed Patient Risk: Intermediate Procedure Risk: Low Anesthetic Plan Anesthetic Plan: GA Disposition: Standard PACU
[2025-01-19 14:54] LABS: Hematocrit 39.9 % (42.0-52.0); Hemoglobin 14.3 g/dl (14.0-18.0); Mean Corpuscular HGB Conc 35.8 g/dl (31.0-36.0); Mean Corpuscular Hemoglobin 36.6 pg (27.0-33.0); Mean Corpuscular Volume 102.0 fL (80.0-98.0); NRBC Abs Auto 0.000 X10*3/uL (0.0-0.012); NRBC Pct Auto 0.0 /100WBC (0.0-0.2); Platelet Count 194 X10*3/uL (160-400); Red Blood Count 3.91 X10*6/uL (4.60-5.80); White Blood Count 12.3 X10*3/uL (4.8-10.8)
[2025-01-19 15:01] LABS: INTERNATIONAL NORM RATIO 1.1 (0.9-1.1); Prothrombin Time 12.6 SEC (10.9-12.4)
[2025-01-19 15:25] LABS: Alanine Aminotransferase 42 U/L (0-40); Albumin Level 3.9 g/dL (3.5-5.0); Alkaline Phosphatase 76 U/L (39-117); Anion Gap 13 (12-20); Aspartate Amino Transferase 34 U/L (5-37); Blood Urea Nitrogen 14 mg/dL (9-16); Calcium 9.3 mg/dL (8.4-10.2); Carbon Dioxide 27 mmol/L (22-29); Chloride 107 mmol/L (96-108); Creatinine Clr Calc Pharmacy 123.0; Estimated Glomerular Filt Rate > 60; Potassium 3.1 mmol/L (3.3-5.1); Sodium 144 mmol/L (135-145); Total Protein 6.7 g/dL (6.5-8.0)
[2025-01-24] VITALS (13 sets, daily range): BP systolic 125–150; BP diastolic 49–78; PULSE 68–82; RESP 13–20; TEMP 36.3–36.8; O2SAT 91–98; BMI 36.7; BMI 36.9
--- NOTE | ~2025-01-24 | FL_ITS ---
EXAMINATION: FL GUIDANCE ONLY HISTORY: C3-4 ACDF COMPARISON: None available. TECHNIQUE: Fluoroscopy time: 3.4 seconds. Cumulative Dose: 0.5560 mGy. DAP: 0.2353 mGym2 Images: 2. FINDINGS: Fluoroscopic spot films of the cervical spine demonstrate anterior cervical disc fusion at the C3-4, C4-5, C5-6 levels. FL/FL guidance in OR IMPRESSION: Fluoroscopy during procedure. Please see procedure report for additional information. Electronically signed by: Bryson Allen MD 01/25/2025 07:06 AM EDT
[2025-01-24] MEDS: Lactated Ringers 1,000 ML 100 ML IVCONT (11:16)
--- NOTE | 2025-01-24 13:58 | MHC.SHP ---
Pre-Procedural Eval Section A - 24 Hr Update-Section A only Date of Service: 01/24/25 The patient is an INPATIENT: No Changes since office visit: No Cold of Flu in the past 2 weeks, No New Medical Problems, No Changes in Medication and No Patient answered all questions The patient has been examined within 24 hours of the surgical procedure. The History & Physical has been completed within 30 days and I have reviewed it.: No Section B - Complete if H&P > 30 days Chief Complaint: Disease of spinal cord, unspecified Allergies: Allergies Allergy/AdvReac Type Severity Reaction Status Date / Time No Known Allergies Allergy Verified 01/24/25 10:42 Review of Systems Sugical H&P ROS: Negative: Constitution, Cardiovascular, Respiratory, Neurological, Psychiatric, Hem-Onc, Allergic/Immunologic, Gastrointestinal, Genitourinary, Musculoskeletal, Integumentary, Endocrine and Eyes/Ears/Nose/Throat Exam Surgical H&P Exam: Normal: HEENT, Normal: Heart, Normal: Lungs, Normal: Extremities, Normal: Abdomen, Normal: Skin and Normal: Neurological (awake alert oriented x 3) Plan Diagnosis/Plan: Unchanged C3-4 anterior cervical diskectomy and fusion Time Spent With Patient Time: Total time managing care of this patient today __5__ minutes.
--- NOTE | 2025-01-24 17:08 | P.OP_ITS ---
Operative Note Operative Note Date of Service: 01/24/25 Narrative: Preoperative Diagnosis: Adjacent degenerative disc disease C3-C4. Progressive cervical myelopathy with dexterity loss, balance and quadriparesis Procedure: [id number] discectomy, arthrodesis and implantation cage ; C3-C4 anterior instrumentation ; local autograft; microscope Informed Consent was obtained for this operation. I have explained the nature, purpose and benefits of the operation. I have discussed the risks and benefit of the operation including possible complications or adverse events with patient/family. Alternative(s) were discussed with the patient with their relative benefits and risks as well as the consequences of not accepting the operation were included in obtaining consent. Surgeon: KEMI LY MD, PHD Procedure Assisted By: kraig Hernandez Description of Procedure: this 64-year-old male with a previous C4-C6 anterior diskectomy and fusion done 2016. The presented with progressive cervical myelopathy with loss of hand function, inability to ambulate with the MRI showing severe spinal cord compression and myelomalacia at C3-C4. The patient was offered an anterior diskectomy and fusion of this level. The procedure complications were explained. The patient was consented. The patient was brought to the operating room and endotracheally intubated. The patient was put in supine position with slight extension of the neck. Prep and drape was done followed by timeout. A mid cervical incision was made followed by opening of the platysma. The prevertebral fascia was reached following the natural planes while the physician wet process assistant head miller provided manual retraction. The prevertebral fascia was opened to expose the disc space. A spinal needle was placed in the disk space to confirm the correct level with xray. The longus colli muscles were released bilaterally and a self retaining retractor was inserted. Two Elco pins were placed in the C3 and C4 vertebral bodies and distraction was give over the interspace. The discectomy was completed toward the posterior annulus of the disc. The microscope was brought in. The remainder of the discectomy was completed. a significant indentation in the spinal cord was seen in the midline caused by calcified posterior longitudinal ligament and disc material.The posterior ligament was opened and resected to expose the underlying dura. I worked from lateral to medial to safely decompress the spinal cord in the midline by resecting the ligament and removal of disc herniation and large osteophytes from the body of C3 and C4 that were safe for autograft. Bilateral foraminotomies were done. The endplates were prepared after which a 6 mm cage filled with autograft was inserted into the disc space. A separate attached plate was locked down with 2 x 14 mm screws as anterior instrumentation. Final x-rays in AP and lateral projection showed a satisfactory position of the implant. The physician wet process assistant head miller took over. The Elco pin was removed. Hemostasis was done. He closed the incision in 2 layers with a 3-0 Vicryl. Steri-Strips used to approximate incision. An OpSite with Tegaderm was used to cover the incision. All sponge and needle counts were correct. Patient was extubated and transported in stable is to recovery room. Anesthesia: General Estimated Blood Loss (ml): Twenty-five Duration of Surgery: 1 hour 10 minutes Postoperative Plan: Discharge home Complications: None
[2025-01-24] MEDS: oxyCODONE HCl Immed Release 5 MG TABLET 10 MG PO (20:07)
[2025-01-25 02:56] VITALS: BP 124/65; PULSE 68; RESP 18; TEMP 36; O2SAT 96
[2025-01-25] MEDS: oxyCODONE HCl Immed Release 5 MG TABLET 10 MG PO ×4 (03:16→20:36)
--- NOTE | 2025-01-25 07:35 | HO.NEURO.PN ---
Neurosurgery Operative Note Date of Service: 01/25/25 Narrative: POD: 1 Procedure: C3-4 ACDF Lopez Is a pleasant 64-year-old male who underwent a C3-4 ACDF yesterday for cervical myelopathy. He had been fairly deconditioned prior to surgery, and is essentially nonambulatory. He was brought in to preoperative area before surgery and it wheelchair. He subsequently underwent a C3-4 ACDF for severe spinal cord compression, and was transferred to the floor for continued evaluation and monitoring Given his functional status. He was seen this morning lying in bed on [address] [place] [address]. Reports he has been able to tolerate p.o. intake via liquids and ice cream, but has not as of yet attempted solid food. He continues to report subjective numbness in his bilateral upper extremities including the hands. Thankfully the severe bilateral shoulder pain rare preoperatively seems to have resolved. He has not been up out of bed to ambulate as of yet and has been utilizing a bedside commode. Afebrile, vital signs stable. The patient has about 4/5 strength with right-sided dorsiflexion / plantar flexion/ knee extension. The rest of his bilateral lower extremity strength is 5/5. His upper extremity strength is 5/5. Anterior neck dressing has some staining without signs of hematoma. No active sanguineous drainage. Area is dry. Plan: Karla 64-year-old male who underwent a C3-4 ACDF yesterday for cervical myelopathy. we are tentatively thinking that he may need transfer to [facility]. We would like him to work with our colleagues in Physical therapy this morning, attempt to get up out of bed & ambulate. He should be transfered with assist to the bedside chair for meals. Tentatively he will be admitted to [address] [place] [address] for recovery, pain management, and further evaluation. Stuart Davidson MD,PhD [facility]
[2025-01-25 07:43] VITALS: BP 138/66; PULSE 67; RESP 18; TEMP 36; O2SAT 94
--- NOTE | 2025-01-25 08:44 | HO.POSTANES ---
Post Anesthesia Evaluation Post Anesthesia Evaluation Date of Service: 01/25/25 Vital Signs: Vital Signs Temp Pulse Resp BP Pulse Ox O2 Del Method O2 Flow Rate 01/25/25 07:43 96.8 F 67 18 138/66 94 Nasal Cannula 3 01/25/25 02:56 96.8 F 68 18 124/65 96 Nasal Cannula 3 Anesthesia: General Mental Status: Awake Pain Control: Satisfactory Nausea/Vomiting: None Hydration: Adequate Anesthesia-Related Issues: No Anes. Related Issues
--- NOTE | 2025-01-25 11:42 | MHC.CM.PN ---
pt livew with is indepedent pt and ot receommneded acute rehab referrals made dc plan acute rehab ptlives in [place] unable to do [facility]
[2025-01-25 12:00] VITALS: BP 118/57; PULSE 61; RESP 18; TEMP 36.1; O2SAT 96
--- NOTE | 2025-01-25 13:38 | PM.DS ---
DS: Providers Provider Date of Service: 01/25/25 Date of discharge: 01/25/25 Primary care physician: Unknown Physician DS: Summary Time Attestation Discharge Coordination Time (in mins): 12 Quality: Safe Use of Opioids Does Pt have an Active Cancer Diagnosis on the Problem List?: No Quality: Stroke Does the patient have a stroke diagnosis?: No Physical Exam Vital Signs: Vital Signs: Last Vital Signs Temp 96.9 F 01/25/25 12:00 Pulse 61 01/25/25 12:00 Resp 18 01/25/25 12:00 BP 118/57 L 01/25/25 12:00 Pulse Ox 96 01/25/25 12:00 O2 Del Method Room Air 01/25/25 12:00 O2 Flow Rate 3 01/25/25 07:43 BMI result Body Mass Index 36.9 Discharge Plan Discharge Patient Disposition: Xfer Inpatient Rehab Fac Referrals: Physician,Unknown J [Primary Care Provider, Medical] - 1 Week Discharge Medications: New oxycodone 5 mg tablet See Rx Instructions .ROUTE .COMPLEX PRN (Reason: pain) Qty: 30 0RF Rx Instructions: Take 1 tablet by mouth every 4-6 hours; Partial Fill upon patient request. docusate sodium 100 mg capsule 100 mg PO BID PRN (Reason: constipation prophylaxis) Qty: 30 0RF Continued carvedilol 25 mg tablet 50 mg PO BID omeprazole 40 mg Capsule,Delayed Release(Dr/Ec) 40 mg PO DAILY PRN (Reason: Acid Reflux) alprazolam [Xanax] 0.25 mg Tablet 0.25 mg PO TID PRN (Reason: Anxiety) amlodipine 10 mg tablet 10 mg PO DAILY olmesartan 40 mg tablet 40 mg PO QAM fexofenadine 180 mg Tablet 180 mg PO DAILY PRN (Reason: Allergy Symptoms) hydrochlorothiazide 12.5 mg Tablet 12.5 mg PO DAILY naproxen 500 mg tablet 500 mg PO BID PRN (Reason: pain) methocarbamol 750 mg tablet 750 mg PO BID PRN (Reason: Muscle Spasm) ascorbic acid (vitamin C) [Vitamin C] 250 mg Tablet 250 mg PO DAILY Discharge Orders: Discharge Order (Routine); Ordered 01/25/25 Ordered By: Stuart King Diet: Advance to usual diet Activity on Discharge: As tolerated Activity Restrictions/Additional Instructions: After your spinal surgery we ask you to observe the following restrictions/guidelines: Activity: It is normal to feel some discomfort as you increase your activity, but that will improve with time. We ask you avoid heavy lifting or acitivities that cause pain. As a general rule, 8lbs is a safe limit for lifting right after surgery. Walk as much as you feel comfortable but not to exhaustion. You will feel extra tired the first few days after surgery. Stay well hydrated. It is OK to walk up and down stairs You may return to driving when you are off narcotics (such as vicodin, oxycodone, dilaudid, etc), and you are back to normal functional capacity. If you have any concerns please check with office before driving. Return to work is specific to each patient and each surgery, so please speak with your doctor/PA at first follow up. Please bring paperwork such as FMLA at that time if you need it filled out. Medications: We recommend you take 1,000mg Tylenol every 8 hours for the first few weeks after surgery, if you do not have any liver issues and can tolerate this medication. Do not exceed 4,000mg daily. We will give you a short supply of narcotics after surgery (usually one weeks worth). If you need more please call the office but do not use more than prescribed. You will need to give our office 48 hours notice if you need narcotics refilled and we do not fill narcotics on weekends or evenings. If you are on a narcotic, it is a good idea to take a stool softener such as colace or senna to avoid constipation If you take blood thinner such as aspirin, Plavix, Coumadin, Effient, Eliquis etc for conditions such as Afib, DVT, Pulmonary embolus, coronary disease, stents etc please speak with your surgeon about specific details as to when you can resume these medications. You can resume NSAIDs on post op day 1 (eg: Motrin, Naproxen, etc). Follow up: Please call the office, , after surgery to arrange a 3 week follow up for wound check. Wound Care: You may remove your dressing on the first day after surgery. ?You may ?leave open to air. Please do not remove the steri strips underneath. they will fall off on their own in one week. IT IS NORMAL FOR THE WOUND TO OOZE OR BE BLOODY FOR A FEW DAYS AFTER SURGERY. ?IF THIS HAPPENS JUST PLACE NEW DRESSING OVER IT TO AVOID STAINING CLOTHES. You may shower on post op day # 1 We ask that you do not let the water soak the wound. If it does get wet, just towel dry lightly. Please do not scrub your incision or place any type of chemical/ointment on the wound. No tub baths, pools or jacuzzis for one month. If you have any leaking or redness from your wound, or fevers, please call the office. Print Language: Hungarian
--- NOTE | 2025-01-25 15:22 | MHC.CM.PN ---
pt has accepted private room at [facility] they are going for auth
[2025-01-25 18:58] VITALS: BP 135/64; PULSE 69; RESP 18; TEMP 36.4; O2SAT 96
[2025-01-26 04:00] VITALS: BP 103/58; PULSE 63; RESP 18; TEMP 36.1; O2SAT 96
[2025-01-26 07:26] VITALS: BP 135/63; PULSE 57; RESP 18; TEMP 36.2; O2SAT 97
[2025-01-26] MEDS: oxyCODONE HCl Immed Release 5 MG TABLET 10 MG PO ×2 (07:36→13:00)
[2025-01-26 09:16] VITALS: BP 128/59; PULSE 71; RESP 16; O2SAT 95
--- NOTE | 2025-01-26 11:04 | HO.NEURO.PN ---
Neurosurgery Operative Note Date of Service: 01/26/25 Narrative: POD: 2 Procedure: C3-4 ACDF HPI: [facility] Is a pleasant 64-year-old male who underwent a C3-4 ACDF 2 days ago for cervical myelopathy. He had been fairly deconditioned prior to surgery, and is essentially nonambulatory. He was brought in to preoperative area before surgery in a wheelchair. He subsequently underwent C3-4 ACDF for severe spinal cord compression. Both our service and physical therapy recommended he be transferred to a rehabilitation facility. Case Management obtained placement and informed us he would be transferred via EMS yesterday afternoon. It sounds like his insurance company denied coverage for transfer to inpatient rehab late in the day yesterday, and he was therefore never transferred. He was seen sitting upright in bedside chair this morning on 3-S. He was accompanied by physical therapy who were able to get him to ambulate with assist, but they report he is still unsteady and fall risk. Afebrile, vital signs stable. Exam: The patient has about 4/5 strength with right-sided dorsiflexion / plantar flexion/ knee extension. The rest of his bilateral lower extremity strength is 5/5. His upper extremity strength is 5/5. Despite this he continues to report numbness and pain in his shoulders and hands. Anterior neck dressing has some staining without signs of hematoma. No active sanguineous drainage. Area is dry. Plan: Karla 64-year-old male who underwent a C3-4 ACDF yesterday for cervical myelopathy. We attempted to complete a P2P this morning to obtain coverage for transfer to inpatient rehab, however the medical doctor who completed the peer to peer with this quality analyst/technical writer stated ?There are no medical concerns that would need to be addressed by inpatient rehab and declined coverage. This is despite the patients significant decline before surgery, and continued symptoms of myelopathy after surgery. Our case management team is going to try and obtain placement to a short-term rehab facility that would only cover a few days. We will discuss with our case management staff later today and hopefully be able to DC him. Stuart Davidson MD,PhD [facility]
[2025-01-26 15:20] VITALS: BP 127/59; PULSE 65; RESP 18; TEMP 36.4; O2SAT 94
[2025-01-26 19:30] VITALS: BP 142/66; PULSE 62; RESP 18; TEMP 36.3; O2SAT 95
[2025-01-27 03:15] VITALS: BP 150/69; PULSE 57; RESP 18; TEMP 36.6; O2SAT 94
[2025-01-27 07:39] VITALS: BP 139/65; PULSE 58; RESP 18; TEMP 36.3; O2SAT 97
[2025-01-27 08:23] VITALS: PULSE 62
[2025-01-27] MEDS: oxyCODONE HCl Immed Release 5 MG TABLET 10 MG PO ×3 (08:24→17:48)
--- NOTE | 2025-01-27 08:39 | HO.NEURO.PN ---
Neurosurgery Operative Note Date of Service: 01/27/25 Narrative: Postop day 3., status post ACDF for severe cervical myelopathy Patient reports his hands are still numb, feel slightly stronger than they were before surgery. Still having balance issues and trouble walking. He is voiding okay and tolerating a diet. He is awaiting possible transfer to rehab this morning. Apparently there was an issue with his insurance yesterday but peer to peer was done and we anticipate should be able to discharge today. Afebrile, vital signs stable Physical exam: Patient is awake alert oriented x3, he has bilateral hand weakness which I would rate as 4/5, clumsiness of his hands, lower extremity strength is full and proximal upper extremity strength is full. Wound is clean and dry with no signs of hematoma, outer dressing removed. Impression: Postop day 3., status post ACDF for severe cervical myelopathy, he is awaiting transfer to rehab today. He is otherwise clinically stable and there are no changes to his status. Dr. Davidson updated and aware of plan.
[2025-01-27 12:00] VITALS: BP 131/71; PULSE 65; RESP 18; TEMP 36.6; O2SAT 96
--- NOTE | 2025-01-27 16:21 | MHC.CM.PN ---
S/P ACDF, cervical Myopathy. PT/OT eval rec Acute rehab. Bed accepted at [facility] declined the request. A STR bed has been offered and accepted from [facility]. [facility] auth has been received by the facility. DC info has been sent to [place] and [facility]. 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 Upon discharge from [facility] the patient will dc to home with [facility]. Patients notified.
[2025-01-27 17:57] VITALS: BP 143/79; PULSE 68; RESP 17; TEMP 36.2; O2SAT 94
== END 2025-01-27 18:11 ==
LOC: HO.SSS 10:28 → HO.S3 18:05
PROVIDERS: Nurse Practitioner; Visit Provider Neurological Surgery
PROC: (CPT 22551; principal; 2025-01-24 13:10)
DX: M50.01 Cervical disc disorder with myelopathy, high cervical region (principal); R26.2 Difficulty in walking, not elsewhere classified; G47.33 Obstructive sleep apnea (adult) (pediatric); Z98.1 Arthrodesis status
CPT/HCPCS: 22551; 22853; 20936; 22845; 36415; 80053; 85027; 85610; 93005; 97110; 97116; 97162; 97166; 97530; 97535; C1713; C1889; J0131; J0690; J1100; J1171; J2003; J2371; J2704; J3010

== ENCOUNTER → 2025-01-24 10:27 | Outpatient (BNV) | payer BC, SELFPAY | PROVIDERS: Visit Provider Neurological Surgery | DX: M50.01 Cervical disc disorder with myelopathy, high cervical region (principal) | CPT/HCPCS: 20936; 22551; 22845; 22853; 99024; 99499 ==

== ENCOUNTER 2025-02-13 09:05 | Outpatient (AMB) | payer BC, SELFPAY ==
--- OUTSIDE RECORDS SUMMARY | 2025-02-04 15:15 | XMS_ITS | Encounter Summary ---
Author Organization [facility] Address [address] [place] [address] Care Team Providers Care Customs Inspector Name Role Phone Jenn Hu MD Primary Care Provider [phone] Reason for Visit * Reason Comments abnormal labs * Auth/Cert (Routine) Specialty Diagnoses / Procedures Referred By Contac t Referred To Contact Diagnoses Urinary retention Lower extremity edema Positive D dimer Procedures . Naeem Daniles MD [address] [place] [id number] Phone: tel: fax: [facility] Intermediate Care Unit [address] [place] [phone] Phone: tel: Referral ID Status Reason Start Date Expiration Date Visits Re quested Visits Authorized [id number] 1 1 Encounter Details Date Type Department Care Team (Latest Contact Info) Description 02/04/2025 3:15 PM EDT - 02/09/2025 1:23 PM EDT Hospital Encounter [facility] Urology Unit [address] [place] [phone] Frances Edward MD [address] [place] [phone] Matias Maxwell MD [address] [place] [phone] Naeem Daniels MD [address] [place] [id number] Richie Cerna MD [address] [facility] [address] [place] [address] [place] [address] [place] [phone] Alon Gonsalez MD [address] [place] [address] Lower extremity edema (Primary Dx); Positive D dimer; Urinary retention; Deep vein thrombosis (DVT) of other vein of lower extremity, unspecified chronicity, unspecified laterality ([facility] V24, [facility] V28) Discharge Disposition: [facility] Facility Social History Tobacco Use Types Packs/Day Years Used Date Smoking Tobacco: Every Day Cigarettes 0.5 26 Passive Smoke Exposure: Current Smokeless Tobacco: Never Tobacco Cessation:Ready to Q uit: Yes; Counseling Given: No Alcohol Use Standard Drinks/Week Comments Yes 0 (1 standard drink = 0.6 oz pur e alcohol) Interpersonal Safety Answer Date Record ed Physical Abuse 02/06/2025 Verbal Abuse 02/06/2025 Sex and Gender Information Value Date Recorded Sex Assigned at Not on file Legal Sex Male 10:15 AM EDT Gender Identity Not on file Sexual Orientation Not on file 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 Not on file Not on file documented as of this encounter Last Filed Vital Signs Vital Sign Reading Time Taken Comments Blood Pressure 143/63 02/09/2025 7:58 AM EDT Pulse 64 02/09/2025 7:58 AM EDT Temperature 36.9 C (98.4 F) 02/09/2025 7:58 AM EDT Respiratory Rate 18 02/09/2025 7:58 AM EDT Oxygen Saturation 94% 02/09/2025 7:58 AM EDT Inhaled Oxygen Concentration - - Weight 99.2 kg (218 lb 11.1 oz) 025 10:37 AM EDT Height 162.5 cm (5' 3.98 ) 02/07/2025 1 0:37 AM EDT Body Mass Index 37.57 02/07/2025 10:37 AM EDT documented in this encounter Functional Status * Are you deaf or do you have serious difficulty hearing? Answer Date of Assessment Author No 01/29/2025 4:44 PM EDT Caterina Paiz RN * Are you blind or do you have serious difficulty seeing, even when wearing glasses? Answer Date of Assessment Author No 01/29/2025 4:44 PM EDT Caterina Paiz RN * Do you have serious difficulty walking or climbing stairs? Answer Date of Assessment Author Yes 01/29/2025 4:44 PM EDT Caterina Paiz RN * Do you have serious difficulty dressing or bathing? Answer Date of Assessment Author No 01/29/2025 4:44 PM EDT Caterina Paiz RN * Because of a physical, mental, or emotional condition, do you have serious difficulty doing errandsalone such as visiting the doctor? Answer Date of Assessment Author No 01/29/2025 4:44 PM EDT Caterina Paiz RN documented as of this encounter Mental Status * Because of a physical, mental, or emotional condition, do you have serious difficulty concentrating, remembering, or making decisions? (5 years old or older) Answer Entry Date Author No 01/29/2025 4:44 PM EDT Caterina Paiz RN documented in this encounter Discharge Summaries * Alon Gonsalez MD - 02/09/2025 1:23 PM EDT Images from the original note were not included. DISCHARGE SUMMARY Patient Information Lopez Jackson : 1960 [64 y.o.] Admitting Provider Naeem Daniels MD Discharge Provider Alon Gonsalez MD, No att. providers found Primary Care Physician Jenn Hu MD Admission Date 02/04/2025 Discharge Date 02/09/2025 Discharge disposition-Home Summary of Hospital Problems Primary Discharge Diagnosis: JADA due to postobstructive uropathy, DVT, possible PE Hospital Course Summary Admission HPI from H&P per admitting physician/GENTRY- 64-year-old male with past medical history of morbid obesity, essential hypertension, recent history of neck surgery who was discharged to rehab coming into the hospital with abnormal blood work. Patient had blood work performed which showed elevated creatinine so the patient was brought into the hospital. Patient stated that he had constipation for the last 2 days. He had urinated earlier this afternoon before coming to the hospital. Patient denied any active complaints of lightheadedness, dizziness, chest pain or shortness of breath. Because of elevated creatinine, the patient was sent to the hospital. Patient was found to have acute hyponatremia in the setting of renal dysfunction as well. Laboratory workup was suggestive of chronic anemia with a baseline hemoglobin of 11-12. D-dimer was elevated. DVT scan was negative. Patient underwent CT scan of the chest which was suggestive of mild patchy bilateral upper lobe ground glass opacities concerning for pneumonia. Brief Hospital course 64 years old male with past medical history significant for but not limited to morbid obesity, essential hypertension, recent history of neck surgery who was discharged to rehab now presents to the hospital with abnormal blood work including acute kidney injury. JADA due to postobstructive uropathy - Creatinine was 5 which after Chaves catheter placement improved to less than 1. - Keep Chaves catheter in. Started Flomax. Patient will need outpatient follow-up with urology on discharge. Lower extremity DVT High suspicion of PE - Lower extremity venous Doppler came back positive for occlusive DVT in left peroneal vein. - High D-dimer and VQ scan showing high probability of PE. Patient has high pretest probability as well. Highly suspect PE - Started on anticoagulation and now on Eliquis. Plan is 10 mg twice daily for 7 days followed by 5mg twice daily Hypertension-amlodipine. Concern for pneumonia - There was concern for pneumonia on CT scan which showed multifocal infiltrate and patient was started on antibiotics. However patient never had any fever chills cough shortness of breath or chest pain. With diarrhea antibiotics discontinued as well morbid obesity Sleep apnea - For IKE CPAP at night. PT was involved in the care. It was decided to discharge patient to rehab/SNF facility. Physical Exam at time of Discharge No data recorded. Body mass index is 37.57 kg/m??. No results found for: PTWT , PTHT Physical Exam General-patient appears comfortable, no acute distress HEENT-NCAT Eyes-anicteric Cardiology-no significant murmur appreciated Respiratory-no significant wheezing appreciated abdomen-nontender nondistended Extremity-no significant lower extremity edema noted however mild swelling noted in right ankle which is chronic Neurology-awake alert oriented to time place and person Skin-warm and dry Follow-Up Instructions and Recommendations Outpatient follow-up with hematology, PCP Discharge Medications Your medication list START taking these medications Instructions Last Dose Given Next Dose Due apixaban 5 mg tablet Commonly known as: ELIQUIS Start taking on: February 08, 2025 Take 2 tablets (10 mg total) by mouth 2 (two) times a day for 6 days, THEN 1 tablet (5 mg total) 2 (two) times a day. tamsulosin 0.4 mg 24 hr capsule Commonly known as: FLOMAX Take 1 capsule (0.4 mg total) by mouth at bedtime. Capsules should be taken 30 minutes following the same meal each day. traMADoL 50 mg tablet Commonly known as: ULTRAM Take 1 tablet (50 mg total) by mouth every 12 (twelve) hours if needed for severe pain for up to 3 days. Max Daily Amount: 100 mg CONTINUE taking these medications Instructions Last Dose Given Next Dose Due hydroCHLOROthiazide 12.5 mg capsule Commonly known as: MICROZIDE Take 1 capsule (12.5 mg total) by mouth 1 (one) time each day. Where to Get Your Medications These medications were sent to [facility]/pharmacy #[id number] - [place] - [address] [place] [address] apixaban 5 mg tablet tamsulosin 0.4 mg 24 hr capsule Information about where to get these medications is not yet available Ask your nurse or doctor about these medications traMADoL 50 mg tablet Lab Results Component Value Date GLUCOSE 84 02/10/2025 CALCIUM 9.0 02/10/2025 NA 139 02/10/2025 K 3.6 02/10/2025 CO2 26 02/10/2025 CL 106 02/10/2025 BUN 6 02/10/2025 CREATININE 0.61 (L) 02/10/2025 Lab Results Component Value Date WBC 11.7 (H) 02/10/2025 HGB 11.3 (L) 02/10/2025 HCT 33.3 (L) 02/10/2025 MCV 97.4 02/10/2025 PLT 312 02/10/2025 CT Chest/Abdomen/Pelvis wo Contrast Result Date: 02/04/2025 INDICATION: elevated creatinine, hypoxic. evaluate for obstructive etiology, pneumonia, other Exam:Nonenhanced CT chest, abdomen and pelvis with multiplanar reformats. Comparison: None. Findings: CTchest: Lungs reveal bilateral lower lobe atelectasis. Minimal patchy ground-glass opacities primarily involving upper lobes (for example, 4; 100-130) are nonspecific, could suggest mild nonspecific multifocal pneumonia or pneumonitis (including COVID infection). No other mari consolidation. Airways appear patent. No pneumothorax. No mediastinal or hilar masses or adenopathy. No pleural or pericardial effusions. Osseous structures reveal no destructive osseous lesions. CT abdomen: Liver is freeof gross focal lesions and ductal dilatation. Gallbladder is unremarkable. Spleen reveals an equivocal subtle wedge-shaped hypodensity (5; 109-135), raising the possibility of splenic infarct. Pancreas and right adrenal gland appear unremarkable. Left adrenal gland reveals a 17 mm low-density nodule (5; 125,-14 Hounsfield units), likely adenoma. Kidneys appear unremarkable. No urolithiasis or hydroureteronephrosis appreciated. No free intraperitoneal fluid or retroperitoneal masses or adenopathy. Abdominal aorta is normal caliber with [id number] calcific athero sclerosis. Bowel loops reveal no abnormal wall thickening or distention. Colonic diverticulosis is present, without CT evidence of diverticulitis. The appendix appears unremarkable. CT pelvis: Evaluation of the lower pelvis is limited by streak artifact from patient's right hip arthroplasty hardware. No gross pelvic masses,fluid or adenopathy. A Chaves catheter is present within urinary bladder. Osseous structures reveal no destructive osseous lesions. There are advanced left hip osteoarthritic changes. Impression: 1. Mild patchy bilateral upper lobe ground-glass opacities, concerning for multifocal pneumonia or nonspecific pneumonitis, as described above. 2. No acute abnormality within the abdomen or pelvis. This document has been electronically signed by: Keith De Souza MD on 02/04/2025 19:14:22 Vascular US Duplex Lower Extremity Venous Bilateral Result Date: 02/04/2025 INDICATION: edema Bilateral lower extremity duplex venous Doppler Comparison: None Technique: Grayscale/Color/Duplex Doppler sonographic evaluation of the deep venous system within both lower extremities. Findings: Right lower extremity Common femoral vein: Patent CFV/GSV junction: Patent Femoral vein: Patent Popliteal vein: Patent Infrapopliteal veins: Patent where seen Soft tissue: No focal abnormality Left lower extremity Common femoral vein: Patent CFV/GSV junction: Patent Femoral vein: Patent Popliteal vein: Patent Infrapopliteal veins: Patent where seen Soft tissues: No focal abnormality Impression: 1. Negative for bilateral lower extremity DVT 2. No Townsend's cyst This document has beenelectronically signed by: Gurvinder Roe MD on 02/04/2025 17:59:42 About 38 minutes spent independently today in discharge process for this patient including but not limited to chart review, clinical decision making, care coordination. documented in this encounter Discharge Instructions * Discharge Instructions* Alon Gonsalez MD - 02/08/2025 11:49 AM EDT Changes in your medications are as mentioned below- - take medications as prescribed Special Instructions- - follow up outpatient with urology and dermatology If you develop any chest pain, shortness of breath, nausea, vomiting, palpitations, abdominal discomfort, worsening weakness, or any other symptoms then please contact 911. Please contact your primary care physician (family doctor) within 1 week of discharge. documented in this encounter Medications at Time of Discharge apixaban (ELIQUIS) 5 mg tabletIndications :Deep vein thrombosis (DVT) of other vein of lower extremity, unspecified chronicity, unspecified laterality ([facility] V24, [facility] V28) Take 2 tablets (10 mg total) by mouth 2 (two) times a day for 6 days, THEN 1 tablet (5 mg total) 2 (two) times a day. 84 each 02/08/2025 5 hydroCHLOROthiazi de (MICROZIDE) 12.5 mg capsule Take 1 capsule (12.5 mg total) by mouth 1 (one) time each day. tamsulosin (FLOMAX) 0.4 mg 24 hr capsule Take 1 capsule (0.4 mg total) by mouth at bedtime. Capsules should be taken 30 minutes following the same meal each day. 30 each 02/08/2025 5 traMADoL (ULTRAM) 50 mg tabletIndications :Deep vein thrombosis (DVT) of other vein of lower extremity, unspecified chronicity, unspecified laterality (CMS/HCC V24, CMS/HCC V28) Take 1 tablet (50 mg total) by mouth every 12 (twelve) hours if needed for severe pain for up to 3 days. Max Daily Amount: 100 mg 02/08/2025 5 documented as of this encounter Ordered Prescriptions Prescription Sig Dispense Quantity Refills Last Filled Start Date End Date apixaban (ELIQUIS) 5 mg tabletIndications: Deep vein thrombosis (DVT) of other vein of lower extremity, unspecified chronicity, unspecified laterality (CMS/HCC V24, CMS/HCC V28) Take 2 tablets (10 mg total) by mouth 2 (two) times a day for 6 days, THEN 1 tablet (5 mg total) 2 (two) times a day. 84 each 02/08/2025 5 tamsulosin (FLOMAX) 0.4 mg 24 hr capsule Take 1 capsule (0.4 mg total) by mouth at bedtime. Capsules should be taken 30 minutes following the same meal each day. 30 each 02/08/2025 5 traMADoL (ULTRAM) 50 mg tabletIndications: Deep vein thrombosis (DVT) of other vein of lower extremity, unspecified chronicity, unspecified laterality (CMS/HCC V24, CMS/HCC V28) Take 1 tablet (50 mg total) by mouth every 12 (twelve) hours if needed for severe pain for up to 3 days. Max Daily Amount: 100 mg 02/08/2025 5 documented in this encounter Discharge Disposition Disposition Code Departure Means Destination Comment s Correction Facility documented in this encounter Progress Notes * Michelle Tarango OT - 02/09/2025 12:38 PM EDT Therapy session was attempted for Lopez Jackson by Michelle Tarango OT on 02/09/2025. The patient was unable to be seen for the following reason(s): Other: Pt to be discharged per nursing in 30 minutes. This screenplay writer went in to see patient but patient pleasantly declined therapy due to increased pain and waiting pain meds Plan for return visit: Other: pt to cont with ot at next level. * Erinn Rabago RN - 02/09/2025 11:51 AM EDT 02/09/25 1151 Transportation Transportation at discharge [facility] providing transportation [place] What day is the transport expected? 02/09/25 What time is the transport expected? 1300 Final Discharge Disposition [facility] Pt d/c to [facility] rehab per pt preference. HCP/spouse Marta notified of d/c, verbalized understanding and agreed with plan * Erinn Rabago RN - 02/08/2025 3:35 PM EDT Progress Note TORRES 02/09 Barrier: auth pending at [facility] rehab Dispo-return to [address] [place] [address], [facility] received message from [facility] rehab reporting insurance is requesting peer to peer- insurance vendor [facility] peer to peer review. needs to call by 9am tomorrow 02/09. [phone]. need to have name, ID and for the call, ICC sent message to provider. * Alon Gonsalez MD - 02/08/2025 1:44 PM EDT Images from the original note were not included. BREANNA PROGRESS NOTE Date: 02/08/2025 Author: Alon Gonsalez MD Patient ID: Lopez Jackson is a 64 y.o. male : 1960 MR#: [id number] SUBJECTIVE Subjective Patient seen and examined bedside this morning. Offers no complaints reports no events overnight. Denies any chest pain shortness of breath nausea vomiting palpitation or dizziness. Objective Allergy- Patient has no known allergies. OBJECTIVE Vitals: 02/07/25 2008 02/08/25 0357 02/08/25 0920 02/08/25 1200 BP: (!) 141/81 (!) 165/81 135/68 126/73 BP Location: Right arm Right arm Right arm Left arm Patient Position: Lying Lying Sitting Sitting Pulse: 82 81 88 83 Resp: 18 18 18 18 Temp: 36.4 ??C (97.5 ??F) 36.4 ??C (97.6 ??F) 36.7 ??C (98 ??F) 36.5 ??C (97.7 ??F) TempSrc: Temporal Temporal Temporal Oral SpO2: 96% 94% 97% 98% Weight: Height: Temp (24hrs), Av.6 ??C (97.8 ??F), Min:36.4 ??C (97.5 ??F), Max:36.7 ??C (98 ??F) Physical Exam General-patient appears comfortable, no acute distress HEENT-NCAT Eyes-anicteric Cardiology-no significant murmur appreciated Respiratory-no significant wheezing appreciated abdomen-nontender nondistended Extremity-no significant lower extremity edema noted however mild swelling noted in right ankle which is chronic Neurology-awake alert oriented to time place and person Skin-warm and dry Lab Results: CBC BMP Results from last 7 days Lab Units 02/08/25 0530 02/07/25 0631 02/06/25 0612 02/05/25 0527 02/04/25 1629 WBC AUTO K/mcL 11.7* 11.7* 12.4* 12.0* 14.0* 15.4* HEMOGLOBIN g/dL 11.9* 11.9* 11.9* 12.4* 12.3* 12.4* HEMATOCRIT % 33.7* 33.7* 33.9* 36.0* 34.3* 33.9* PLATELETS K/mcL 285 285 252 255 228 214 LYMPHS PCT AUTO % 13.6 -- 18.7 15.1 5.6 MONO PCT AUTO % 8.8 -- 9.6 8.6 4.5 EOS PCT AUTO % 2.3 -- 2.2 0.4 0.1 Results from last 7 days Lab Units 02/08/25 0531 02/07/25 0631 02/06/25 0602/05/25 1209 02/05/25 0502/04/25 1629 SODIUM mmol/L 139 138 140 -- 142 130* POTASSIUM mmol/L 3.4* 3.6 3.7 3.8 2.9* 3.9 CHLORIDE mmol/L 105 105 106 -- 107 98 CO2 mmol/L 25 27 27 -- 27 25 ANION GAP 9 6 7 -- 8 7 BUN mg/dL 5 8 13 -- 31* 66* CREATININE mg/dL 0.60* 0.55* 0.52* -- 1.12 4.67* CALCIUM mg/dL 9.0 8.7 9.1 -- 9.3 9.1 MAGNESIUM mg/dL 1.8* 1.8* -- -- 2.2 2.4 PHOSPHORUS mg/dL 4.5 3.8 -- -- -- -- Results from last 7 days Lab Units 02/08/25 0531 02/07/25 0631 02/06/25 0602/05/25 0502/04/25 1629 GLUCOSE mg/dL 87 99 94 87 165* Results from last 7 days Lab Units 02/07/2563002/04/25 1629 AST unit/L 16 21 ALT unit/L 12 22 Scheduled Medications PRN Medications IV Medications amLODIPine, 10 mg, Daily apixaban, 10 mg, BID [Held by provider] hydroCHLOROthiazide, 12.5 mg, Daily tamsulosin, 0.4 mg, Nightly acetaminophen, 650 mg, q6h PRN HYDROmorphone, 1 mg, q6h PRN traMADoL, 50 mg, q12h PRN ASSESSMENT & PLAN Assessment/Plan Principal Problem: Urinary retention Active Problems: Lower extremity edema No problem-specific Assessment & Plan notes found for this encounter. 64 years old male with past medical history significant for but not limited to morbid obesity, essential hypertension, recent history of neck surgery who was discharged to rehab now presents to the hospital with abnormal blood work including acute kidney injury. JADA due to postobstructive uropathy - Creatinine was 5 which after Chaves catheter placement improved to less than 1. - Keep Chaves catheter in. Started Flomax. Patient will need outpatient follow-up with urology on discharge. Lower extremity DVT High suspicion of PE - Lower extremity venous Doppler came back positive for occlusive DVT in left peroneal vein. - High D-dimer and VQ scan showing high probability of PE. Patient has high pretest probability as well. Highly suspect PE - Started on anticoagulation and now on Eliquis. Plan is 10 mg twice daily for 7 days followed by 5mg twice daily Hypertension-amlodipine. Concern for pneumonia - There was concern for pneumonia on CT scan which showed multifocal infiltrate and patient was started on antibiotics. However patient never had any fever chills cough shortness of breath or chest pain. With diarrhea antibiotics discontinued as well morbid obesity Sleep apnea - For IKE CPAP at night. Diet: Regular Resuscitation: Full Discharge barrier-medically clear for discharge. Pending placement All labs, imaging, relevant history personally reviewed by me. Please be aware that the above note was completed using voice recognition software. If you have anyquestions please contact the author of this note for clarification. * Janet Diop, PT - 02/08/2025 11:[address] [facility] Physical Therapy Treatment PT Discharge Recommendations[facility] Staff Recommendations for safe patient handling: Min A with walker Precautions Medical Precautions: Fall Risk Safety Interventions: ID band on, Side rails up x2, Call kaiser within reach RUE Weight Bearing Status: Full LUE Weight Bearing Status: Full RLE Weight Bearing Status: Full LLE Weight Bearing Status: Full Orthopedic Precautions: Cervical Precautions History of Present Illness: Patient is a 64 y.o. male admitted to [facility] on 02/04/2025 with: Patient Active Problem List Diagnosis Urinary retention Lower extremity edema Fall prevention education provided including use of call light in hospital, use of appropriate assistive device, safe mobility techniques, and safety measures at home. Continue PT as per POC. Subjective I hope I get out of here today Objective 02/08/25 1145 PT Last Visit PT Received On 02/08/25 General Family/Caregiver Present No PT Time Calculation PT Start Time 1145 PT Stop Time 1215 PT Time Calculation (min) 30 min Precautions Medical Precautions Fall Risk Safety Interventions ID band on;Side rails up x2;Call kaiser within reach RUE Weight Bearing Status Full LUE Weight Bearing Status Full RLE Weight Bearing Status Full LLE Weight Bearing Status Full Orthopedic Precautions Cervical Precautions Vital Signs Patient Identification Yes Oxygen Therapy Oxygen Therapy None (Room air) Pain Assessment Pain Assessment 0-10 Pain Score 4 Pain Type Acute pain Pain Location Shoulder Pain Orientation Left Pain Onset (the pt reports new onset of L suolder /trap pain as well as a throbbing sensation in B hands) Cognition Orientation Level Oriented X4 Activity Tolerance Endurance (pt off 02 today and tolerating all activity on RA with 02 sats above 90%) Static Standing Balance Static Standing-Level of Assistance Supervision Static Standing-Balance Support Right upper extremity supported;Left upper extremity supported Dynamic Standing Balance Dynamic Standing-Level of Assistance Minimum assistance Dynamic Standing-Balance Ambulation Dynamic Standing-Balance Support Right upper extremity supported;Left upper extremity supported Transfers Sit to Stand Assistance Minimum assistance Chair/Bed to Chair/Bed Transfer Assistance Minimum assistance Ambulation Walking Assistance Minimum assistance Device Rolling walker Distance Ambulated (ft) 30 Procedures Procedures Gait Training Gait Training Gait Training Time Entry 30 Gait Training Activity 1 The pt states he feels better today just a new pain in the L shoulder. He was able to complete sit to stand transfers from bedside chair with min A. He was then able to standwith walker and S. Amb 30' with walker and min A with lateral weight shift and decreased L hip flexion . Moderate SOB after ambulation with seated rest break noted. Gait Training Activity 2 the pt was educated on hand strengthening exercises as well as fine motor activities with B hands. Due to decreased sensation in fingers he needs to visualize hands for all exercises PT Assessment PT Assessment Results Decreased strength;Decreased endurance Prognosis Good Medical Staff Made Aware Yes Plan Treatment/Interventions Functional transfer training;LE strengthening/ROM;Endurance training;Bed mobility;Gait training PT Plan Skilled PT PT Frequency 2-5 days per week PT Discharge Recommendations [facility] facility placement PT - Evaluation Status Complete Procedure/Treatment: Procedures Procedures: Gait Training Gait Training Gait Training Time Entry: 30 Gait Training Activity 1: The pt states he feels better today just a new pain in the L shoulder. Hewas able to complete sit to stand transfers from bedside chair with min A. He was then able to stand with walker and S. Amb 30' with walker and min A with lateral weight shift and decreased L hip flexion . Moderate SOB after ambulation with seated rest break noted. Gait Training Activity 2: the pt was educated on hand strengthening exercises as well as fine motoractivities with B hands. Due to decreased sensation in fingers he needs to visualize hands for all exercises Patient left sitting up in chair. RN notified of pt. status, location, response to treatment, and therapy recommendations. Physical Therapy Assessment/Plan PT Assessment PT Assessment Results: Decreased strength, Decreased endurance Prognosis: Good Evaluation/Treatment Tolerance: Patient limited by fatigue Medical Staff Made Aware: Yes Plan Treatment/Interventions: Functional transfer training, LE strengthening/ROM, Endurance training, Bed mobility, Gait training PT Plan: Skilled PT PT Frequency: 2-5 days per week PT Discharge Recommendations: penitentiary facility placement PT - Evaluation Status: Complete Physical Therapy Goals/Education Encounter Problems Encounter Problems (Active) Template: Physical Therapy Problem: PT Short Term Goals Dates: Start: 02/06/25 Goal: PT STG 1 the pt will go up and down 2 steps with rail and cane with supervision Dates: Start: 02/06/25 Expected End: 02/13/25 Goal: PT STG 2 the pt will ambulate 50' with walker and supervision Dates: Start: 02/06/25 Expected End: 02/13/25 Goal: PT STG 3 the pt will complete all transfers with supervision Dates: Start: 02/06/25 Expected End: 02/13/25 Encounter Problems (Resolved) There are no resolved problems. Education Documentation Home Exercise Program, taught by Janet Diop PT at 02/08/2025 3:06 PM. Learner: Patient Readiness: Eager Method: Explanation, Demonstration Response: Verbalizes Understanding, Demonstrated Understanding Comment: Educated on hand strengtheing/fine motor activites to do throughout the day with good understanding Mobility Training, taught by Janet Diop PT at 02/08/2025 3:06 PM. Learner: Patient Readiness: Eager Method: Explanation, Demonstration Response: Verbalizes Understanding, Demonstrated Understanding Comment: Educated on hand strengtheing/fine motor activites to do throughout the day with good understanding Body Mechanics, taught by Janet Diop PT at 02/08/2025 3:06 PM. Learner: Patient Readiness: Eager Method: Explanation, Demonstration Response: Verbalizes Understanding, Demonstrated Understanding Comment: Educated on hand strengtheing/fine motor activites to do throughout the day with good understanding Precautions, taught by Janet Diop PT at 02/08/2025 3:06 PM. Learner: Patient Readiness: Eager Method: Explanation, Demonstration Response: Verbalizes Understanding, Demonstrated Understanding Comment: Educated on hand strengtheing/fine motor activites to do throughout the day with good understanding Home Exercise Program, taught by Janet Diop PT at 02/08/2025 3:06 PM. Learner: Patient Readiness: Eager Method: Explanation, Demonstration Response: Verbalizes Understanding, Demonstrated Understanding Comment: Educated on hand strengtheing/fine motor activites to do throughout the day with good understanding ADL Training, taught by Janet Diop PT at 02/08/2025 3:06 PM. Learner: Patient Readiness: Eager Method: Explanation, Demonstration Response: Verbalizes Understanding, Demonstrated Understanding Comment: Educated on hand strengtheing/fine motor activites to do throughout the day with good understanding Education Comments No comments found. Janet Diop PT * Rosario Lees MD - 02/07/2025 4:51 PM EDT Images from the original note were not included. BREANNA PROGRESS NOTE Date: 02/07/2025 Author: Rosario Lees MD Patient ID: Lopez Jackson is a 64 y.o. male : 1960 MR#: [id number] SUBJECTIVE Subjective chart and EMR reviewed , events noted , labs and imaging reviewed patient seen and examined in room 220 in [facility] [place] arrhythmias Pt on heparin drip for PE (+VQ scan and Duplex for DVT) No bleeding Weaned off On : was on 2 Liters oxygen not on O2 at home, but used it lst night instead of cpap Pt is on Cpap at home but doesn't like the cpap machine her Less headache, neck pain and bilateral shoulder and arm pain Patient has multiple diarrhea : 3 times , no hemachezia Pt still denying chest pain or shortness of breath. Chaves catheter is in place and draining clear urine (was placed in ER , with 1700 ml of urine in there) Creatinine improved from 5 to 1 No hematuria Pt still complaining of the chaves Pt Echo today (to ro R side strain) Allergies Patient has no known allergies. Current Medications: amLODIPine, 10 mg, oral, Daily apixaban, 10 mg, oral, BID azithromycin, 500 mg, intravenous, q24h cefTRIAXone, 1 g, intravenous, q24h [Held by provider] hydroCHLOROthiazide, 12.5 mg, oral, Daily tamsulosin, 0.4 mg, oral, Nightly PRN medications: acetaminophen, heparin OR heparin, HYDROmorphone, traMADoL OBJECTIVE Vitals: 02/07/25 0804 02/07/25 0808 02/07/25 1037 02/07/25 1540 BP: (!) 145/80 (!) 145/80 (!) 148/78 BP Location: Right arm Right arm;Upper Patient Position: Lying Pulse: 75 84 Resp: 20 20 Temp: 36.4 ??C (97.6 ??F) 36.7 ??C (98 ??F) TempSrc: Temporal Temporal SpO2: 96% 97% 96% Weight: 99.2 kg (218 lb 11.1 oz) Height: 1.625 m (63.98 ) BP: 148/78 (02/08 1540) Heart Rate: 84 (02/08 1540) Heart Rate Source: Monitor (02/08 1540) Temp: 36.7 ??C (98 ??F) (02/08 1540) Temp Source: Temporal (02/08 1540) SpO2: 96 % (02/08 1540) FiO2 (%): 28 % (02/06 2228) O2 Flow Rate (L/min): 2 L/min (02/07 700) O2 Delivery Method: Nasal cannula (02/07 700) I/O last 3 completed shifts: In: 400 (4 mL/kg) [P.O.:200; I.V.:200 (2 mL/kg)] Out: 2575 (26 mL/kg) [Urine:2575 (0.7 mL/kg/hr)] Weight: 99.2 kg I/O this shift: In: - Out: 525 [Urine:525] Physical examination Body mass index is 37.57 kg/m??. General, appears stated age , uncomfortable due to his diagnosis and the fact he had diarrhea today Not on oxygen any more not in apparent pain or distress, HEENT,YENNY neck, Supple, not tender, chest, limited thoracic excursion, no added sounds, reduced air entry , no wheezing CVS: S1 S2 ausculated abdomen, soft NT LMFT: AO3, NFD, gait not tested Extremities: no leg edema,no calf tenderness Pressure ulcer on R heel Skin : no rashes Psych: mood is stable and normal affect LABS HEMATOLOGY Lab Results Component Value Date WBC 12.4 (H) 02/07/2025 HGB 11.9 (L) 02/07/2025 HCT 33.9 (L) 02/07/2025 MCV 95.2 02/07/2025 PLT 252 02/07/2025 CHEMISTRY Lab Results Component Value Date GLUCOSE 99 02/07/2025 NA 138 02/07/2025 K 3.6 02/07/2025 CO2 27 02/07/2025 CL 105 02/07/2025 BUN 8 02/07/2025 CREATININE 0.55 (L) 02/07/2025 EGFR 111 02/07/2025 CALCIUM 8.7 02/07/2025 MG 1.8 (L) 02/07/2025 PHOS 3.8 02/07/2025 ANIONGAP 6 02/07/2025 Recent Results (from the past week) Respiratory virus panel molecular study Collection Time: 02/07/25 12:37 AM Specimen: Nasopharynx; Swab Result Value Ref Range Adenovirus Detection by PCR Not Detected Not Detected Influenza A PCR Not Detected Not Detected Influenza B PCR Not Detected Not Detected Coronavirus 229E Not Detected Not Detected Coronavirus HKU1 Not Detected Not Detected Coronavirus OC43 Not Detected Not Detected Coronavirus NL63 Not Detected Not Detected Parainfluenza Virus 1 Not Detected Not Detected Parainfluenza Virus 2 Not Detected Not Detected Parainfluenza Virus 3 Not Detected Not Detected Parainfluenza Virus 4 Not Detected Not Detected RSV PCR Not Detected Not Detected Human Metapneumovirus A and B Not Detected Not Detected Rhinovirus/Enterovirus Not Detected Not Detected Bordetella pertussis Not Detected Not Detected Bordetella parapertussis Not Detected Not Detected Mycoplasma pneumo by PCR Not Detected Not Detected Chlamydia pneumoniae Not Detected Not Detected SARS COV-2 Not Detected Not Detected Imaging: Transthoracic echocardiogram (TTE) complete with PRN contrast, bubble, strain, and 3D order panel Left ventricle cavity size is normal. Left ventricular systolic function is in the normal range with an ejection fraction of 55-60%. No regional LV wall motion abnormalities noted. Right Ventricle: Enlarged right ventricular size. Systolic function is normal. RV S' 18 cm/sec. Normal TAPSE (> 17 mm), measuring 20 mm. Tricuspid Valve: There is mild regurgitation. The right ventricular systolic pressure is mildly elevated. The RVSP is estimated at 41 mmHg. 02/04/25 TRANSTHORACIC ECHOCARDIOGRAM (TTE) COMPLETE (CONTRAST/BUBBLE/3D PRN) 02/07/2025 02/07/2025 Interpretation Summary Left ventricle cavity size is normal. Left ventricular systolic function is in the normal range with an ejection fraction of 55-60%. No regional LV wall motion abnormalities noted. Right Ventricle: Enlarged right ventricular size. Systolic function is normal. RV S' 18 cm/sec. Normal TAPSE (> 17 mm), measuring 20 mm. Tricuspid Valve: There is mild regurgitation. The right ventricular systolic pressure is mildly elevated. The RVSP is estimated at 41 mmHg. Signed by: Mikie Webster MD on 02/07/2025 11:16 AM 02/04/25 VAS US DUPLEX LOWER EXT VENOUS BILAT 02/06/2025 02/06/2025 Venous duplex ultrasound bilateral lower extremity Comparison: US - VAS US DUPLEX LOW EXT VENOUS BILAT - 02/04/25 15:55 EDT Findings: Occlusive deep vein thrombosis noted in the left peroneal vein The visualized remaining deep veins are fully compressible with normal Doppler color flow and spectral tracings. No popliteal cyst. Impression Positive for left lower extremity deep vein thrombosis. Negative for right lower extremity deep vein thrombosis. This document has been electronically signed by: Cameron oCok MD on 02/06/2025 18:41:00 Signed by: Cameron Cook MD on 02/06/2025 6:[address] Chest/Abdomen/Pelvis wo Contrast Final Result Impression: 1. Mild patchy bilateral upper lobe ground-glass opacities, concerning for multifocal pneumonia or nonspecific pneumonitis, as described above. 2. No acute abnormality within the abdomen or pelvis. This document has been electronically signed by: Keith De Souza MD on 02/04/2025 19:14:22 NM Lung Perfusion Imaging Narrative: INDICATION: Shortness of breath FINDINGS: Perfusion only scan was obtained. 5.2 mCi of technetium 99 M MAA intravenously for the perfusion portion with imaging obtained in different positions including anterior, posterior, SERBIAN, HURLEY, LPO and HURLEY views. Relevant studies: Chest CT from February 04, 2025 reviewed Perfusion portion of examination demonstrates small to moderate segmental defect within the right upper lobe. On the left side large defect noted within the left upper lobe within the lingular segment with moderate defect noted within the superior segment. Impression: High probability for pulmonary emboli. With significant interval improvement of renal function considers CTPA for further evaluation. ASSESSMENT & PLAN This is a 64-year-old male essential hypertension, recent history of neck surgery and was at the rehab where routine blood work showed acute renal failure he was sent to emergency room for further evaluation. Lab work in the ED showed hyponatremia acute kidney injury with creatinine of 5, Chaves placed for retention , chest CT showed multifocal pneumonia, there was also Hypoxia and elevated D-dimer , started this weekned on heparin drip for presumed PE. PE was confirmed with + VQ scan and repeat Duplex showed L leg+ DVT Renal function improevd and transitioned to Eliquis Treated with Iv abcs for pneumonia (inflitrate seen on CT) Now has diarrhea A/P Acute kidney injury (postrenal) due to obstructive uropathy creatinine was 5.0, repeat was 4.6 , 1.1 , this morning is 0.55 normalized after a Chaves catheter was placed + IV Hydration and holding all nephrotoxic's (HCTZ, Naprosyn) Cpk normal; Patient denies pre-existing difficulty urinating Most likely due to BPH will keep Chaves catheter in I and O Avoid any NSAIDS, keep diuretic on hold Urology consult and will need a urology follow-up outpatient Obstructive Uropathy Most likely BPH Add flomax on 02/06/[address] Urology Acute PE Elevated D-dimer. 5925, lower extremity DVT was initially negative patient was started on heparin drip till the VQ scan is completed DVT and PE In setting of recent surgery and immobility ++ VQ Can not get CTA due to recent JADA Initial duplex negative, repeat Duplex +ve for L leg DVT On heparin drip, transition to Eliquis starter pack Bnp wa elevated 180 Echo ;preserved Ef 60% and mildly elevated PA pressure, no major R heart strain Home o2 eval : no need or home O2 Will need anticoagulants for at least 3 months (Provoked PE) Advised to fup with hematology in outpatient : Dr Alex , who will also arrange for outpatient hypercoagulable workup and general workup to screen for malignancy Left leg DVT As above Heparin drip , change to eliquis Acute hypoxic resp failure Due to PE O2 weaned off Home o2 eval done: no need Hyponatremia hypovolemic hyponatremia improved after IV fluids . Sodium is 142 now 140 Hypokalemia, not on any diuretic therapy now, possibly poor p.o. intake, supplemented potassium given. Repeat lab work no arrhythmia on telemetry multifocal pneumonia. Ro CHF Vs atypical pneumonia Pt was at SNF / high risk for HCAP Was on 2 L of oxygen. He denies any shortness of breath, CT of the chest showed multifocal pneumonia, leukocytosis but patient is afebrile On ceftriaxone and Zithromax resp viral panel negative Today has diarrhea ? Due o abcs Will hold Abcs and monitor another 24 hr , if diarrhea improved and no fever, then no need for further abcs on dc Diarrhea Ro se of antibiotics Hold abcs a above History of IKE on CPAP at night Morbid obesity Wt loss recommended Essential hypertension. Bp still elevated HCTZ on hold in the setting of JADA. Restarted Norvasc Pressure ulcer In setting of immobility See wound care nore R heel ulcer Local Mx Ambulation Deconditioning Due to recent surgery Pt/OT Tobacco dependence I spent 6 min today counseling to stop smoking He said he will try to stay off smoking Recent neck surgery Pain Mx Enrike need PT/OT And need to return to snf once stable VTE Prophylaxis: heparin drip : change to oral eliquis Code status: Full Code - Default Disposition: home in am if improvement of diarrhea after holding the abcs, monitor off abcs for 24 hr, Chaves , outpt Urology and hematology and Neuro Surgery (p\ostop) , oral AC for 3 month s Health care proxy with phone number : Marta [phone] Discussed with: patient, nursing Dawit , case Mx Dr Juan Caruso Total time spent 45 minutes doing reviewing the electronic medical record , interviewing patient, gathering information, performing physical exam, formulating plan, explaining management plan to patient, coordinating care with RN and case managmenet, documentation and placing orders. This dictation was performed using [employer] speech recognition software. If you have questions, please do not hesitate to reach me on [email or web address] system or call our hospital at [phone] * Naida Huizar RN - 02/07/2025 2:14 PM EDT Images from the original note were not included. Wound Care Initial Consult Visit Date: 02/07/2025 Patient Name: Lopez Jackson Date of : 1960 Reason for Consult: Wound RN Consult received to assess right heel pressure injury noted on admission and recommend topical treatment. Patient Active Problem List Diagnosis Date Noted Date Diagnosed Lower extremity edema 02/05/2025 Urinary retention 02/04/2025 Wound History: Nutritional Status: Pertinent Labs: Albumin Date Value Ref Range Status 02/07/2025 2.8 (L) 3.2 - 5.0 g/dL Final WBC Date Value Ref Range Status 02/07/2025 12.4 (H) 4.8 - 10.8 K/mcL Final WBC, Urine Date Value Ref Range Status 02/04/2025 4.2 (H) 0 - 4 /HPF Final Hemoglobin A1C Date Value Ref Range Status 02/07/2025 4.5 <6.5 % Final Wound Assessment: Wound Pressure Injury 02/07/25 Heel Left (Active) Wound Image Wound Assessment: Flat blister, pink intact blister skin, boggy 02/07/25 1403 Wound Length (cm) 5 cm 02/07/25 1403 Wound Width (cm) 5 cm 02/07/25 1403 Wound Surface Area (cm^2) 25 cm^2 02/07/25 1403 Dressing Betadine;Other (Comment) 02/07/25 1403 Pressure Injury Stage 2 02/07/25 1403 Support Surface: Manish is 18 and at mild risk. Offload heels bilaterally at all times while patient in bed. Wound Summary Assessment: see above Wound Plan: Foam dressing was removed, recommending painting with betadine to dry up heel boggy area and offolad with waffle boot. Piant with betadine daily. 02/07/2025 2:14 PM EDT * Dawit Mackey RN - 02/07/2025 10:40 AM EDT Goals: Identify possible barriers to meeting goals/advancing plan of care: yes Stability of the patient: Moderately Unstable - Medium risk of patient condition declining or worsening End of Shift Summary: no fall today * Lola Jovel RRT - 02/07/2025 8:23 AM EDT 02/07/25 0822 Qualify for Home O2 On at rest Room air SpO2 at rest 95 % On with exertion Room air SpO2 w/ exertion 92 % Amount of exertion time walked 6 Minutes Patient mobile at home? Yes Patient at rest on room air SpO2 = 95% Patient while walking on room air SpO2 92-91% Recommendations: Patient will not need oxygen at this time, re evaluation can be consider if patient continues at this hospitals for more than 2 days. * Rosario Lees MD - 02/06/2025 4:33 PM EDT Images from the original note were not included. BREANNA PROGRESS NOTE Date: 02/06/2025 Author: Rosario Lees MD Patient ID: Lopez Jackson is a 64 y.o. male : 1960 MR#: [id number] SUBJECTIVE Subjective chart and EMR reviewed events noted labs and imaging reviewed patient seen and examined in room 220 in [facility] No arrhythmias Pt on heparin drip No bleeding Went to VQ : strongly positive On 2 Liters oxygen / but not on O2 at home Pt is on Cpap Headache, neck pain and bilateral shoulder and arm pain No numbness in hands Pt is upset with the Dx of PE, Pt still denying chest pain or shortness of breath. Chaves catheter is in place and draining clear urine (was placed in ER , with 1700 ml of urine in there) Creatinine improved from 5 to 1 No hematuria Allergies Patient has no known allergies. Current Medications: azithromycin, 500 mg, intravenous, q24h cefTRIAXone, 1 g, intravenous, q24h [Held by provider] hydroCHLOROthiazide, 12.5 mg, oral, Daily tamsulosin, 0.4 mg, oral, Nightly heparin, 16 Units/kg/hr, Last Rate: 20 Units/kg/hr (02/06/25 1453) PRN medications: acetaminophen, heparin OR heparin, HYDROmorphone, traMADoL OBJECTIVE Vitals: 02/06/25 1154 02/06/25 1300 02/06/25 1458 02/06/25 1517 BP: (!) 142/66 (!) 149/67 (!) 142/68 BP Location: Right arm Patient Position: Lying Pulse: 58 71 65 Resp: 18 16 19 Temp: 36.2 ??C (97.2 ??F) 36.5 ??C (97.7 ??F) 36.2 ??C (97.2 ??F) TempSrc: Temporal SpO2: 98% 98% 100% 98% Weight: Height: BP: 142/68 (02/06 1517) Heart Rate: 65 (02/06 1517) Heart Rate Source: Monitor (02/05 2334) Temp: 36.2 ??C (97.2 ??F) (02/06 1517) Temp Source: Temporal (02/06 1154) SpO2: 98 % (02/06 1517) FiO2 (%): 28 % (02/06 2228) O2 Flow Rate (L/min): 2 L/min (02/06 1300) O2 Delivery Method: Nasal cannula (02/06 1300) I/O last 3 completed shifts: In: 660 (6.7 mL/kg) [P.O.:200; I.V.:200 (2 mL/kg); IV Piggyback:260] Out: 7750 (78.1 mL/kg) [Urine:7750 (2.2 mL/kg/hr)] Weight: 99.2 kg I/O this shift: In: - Out: 725 [Urine:725] Physical examination Body mass index is 37.57 kg/m??. General, appears stated age , uncomfortable, on O2, not in apparent pain or distress, HEENT,YENNY neck, Supple, not tender chest, limited thoracic excursion, no added sounds, reduced air entry , no wheezing CVS: S1 S2 ausculated abdomen, soft NT LMFT: AO3, NFD, gait not tested Extremities: no leg edema,no calf tenderness Skin : no rashes Psych: mood is stable and normal affect LABS HEMATOLOGY Lab Results Component Value Date WBC 12.0 (H) 02/06/2025 HGB 12.4 (L) 02/06/2025 HCT 36.0 (L) 02/06/2025 MCV 98.6 (H) 02/06/2025 PLT 255 02/06/2025 CHEMISTRY Lab Results Component Value Date GLUCOSE 94 02/06/2025 NA 140 02/06/2025 K 3.7 02/06/2025 CO2 27 02/06/2025 CL 106 02/06/2025 BUN 13 02/06/2025 CREATININE 0.52 (L) 02/06/2025 EGFR 113 02/06/2025 CALCIUM 9.1 02/06/2025 MG 2.2 02/05/2025 ANIONGAP 7 02/06/2025 No results found for this or any previous visit (from the past week). Imaging: NM Lung Perfusion Imaging Narrative: INDICATION: Shortness of breath FINDINGS: Perfusion only scan was obtained. 5.2 mCi of technetium 99 M MAA intravenously for the perfusion portion with imaging obtained in different positions including anterior, posterior, SERBIAN, HURLEY, LPO and HURLEY views. Relevant studies: Chest CT from February 04, 2025 reviewed Perfusion portion of examination demonstrates small to moderate segmental defect within the right upper lobe. On the left side large defect noted within the left upper lobe within the lingular segment with moderate defect noted within the superior segment. Impression: High probability for pulmonary emboli. With significant interval improvement of renal function considers CTPA for further evaluation. -------- FINAL REPORT -------- Dictated By: Tyrone Shoemaker Dictated Date: 02/06/2025 11:39 ET Assigned Physician: Tyrone Shoemaker Reviewed and Electronically Signed By: Tyrone Shoemaker Signed Date: 02/06/2025 11:50 ET Workstation ID: [id number] Transcribed By: Self Edit Transcribed Date: 02/06/2025 11:[address] Chest/Abdomen/Pelvis wo Contrast Final Result Impression: 1. Mild patchy bilateral upper lobe ground-glass opacities, concerning for multifocal pneumonia or nonspecific pneumonitis, as described above. 2. No acute abnormality within the abdomen or pelvis. This document has been electronically signed by: Keith De Souza MD on 02/04/2025 19:14:22 Vascular US Duplex Lower Extremity Venous Bilateral Final Result Impression: 1. Negative for bilateral lower extremity DVT 2. No Townsend's cyst This document has been electronically signed by: Gurvinder Roe MD on 02/04/2025 17:59:42 ASSESSMENT & PLAN This is a 64-year-old male essential hypertension, recent history of neck surgery and was at the rehab where routine blood work showed acute renal failure he was sent to emergency room for further evaluation. Lab work in the ED showed hyponatremia acute kidney injury with creatinine of 5, chest CT showed multifocal pneumonia, there was also elevated D-dimer , started this weekned or presumed PE A/P Acute kidney injury (postrenal) due to obstructive uropathy creatinine was 5.0, repeat was 4.6 , 1.1 , this morning is 0.5 normalized after a Chaves catheter was placed + IV Hydration and holding all nephrotoxic's (HCTZ, Naprosyn) Cpk normal; Patient denies pre-existing difficulty urinating Most likely due to BPH will keep Chaves catheter in I and O Avoid any NSAIDS, keep diuretic on hold Urology consult and will need a urology follow-up outpatient Obstructive Uropathy Most likely BPH Add floamx Keep Chaves in place Urology Acute PE Elevated D-dimer. 5925, lower extremity DVT was negative patient was started on heparin drip till the VQ scan is completed DVT and PE In setting of recent surgery and immobility ++ VQ Can not get CTA due to recent JADA Initial duplex negative Will repeat Duplex Keep heparin drip Bnp wa elevated 180 Get Echo to ro R heart strain Home o2 eval in am Left leg DVT As above Heparin drip Acute hypoxic resp failure Due to PE O2 Home o2 eval Hyponatremia hypovolemic hyponatremia improved after IV fluids . Sodium is 142 now 140 Hypokalemia, not on any diuretic therapy, possibly poor p.o. intake, supplemented potassium given. Repeat lab work no arrhythmia on telemetry multifocal pneumonia. Ro CHF Vs atypical pneumonia Pt was at SNF / high risk for HCAP currently on 2 L of oxygen. He denies to me any shortness of breath, CT of the chest showed multifocal pneumonia, leukocytosis but patient is afebrile continue with ceftriaxone and Zithromax Get resp viral panel History of IKE on CPAP at night Morbid obesity Wt loss recommended Essential hypertension. HCTZ on hold in the setting of JADA. Restart Norvasc Recent neck surgery Pain Mx Enrike need PT/OT And need to return to snf once stable 02/06/25 Heparin drip + VQ Repeat Duplex of both legs to ro DVTs (initial duplex was negative) Add flomax Urology consult, will need for outpatient Fup and voiding trial in near future Home O2 eval Continue Empric IV abcs Counseled to stop smoking Addendum: venous Duplex is positive for DVT of L leg Continue heparin drip VTE Prophylaxis: heparin drip for now Code status: Full Code - Default Disposition:here with IV heparin drip, goal home in am with oral AC Health care proxy with phone number : fercho Lozano [phone] Discussed with: patient, nursing [place], case Mx Emily Fan, Fercho Lozano Total time spent 45 minutes doing reviewing the electronic medical record , interviewing patient, gathering information, performing physical exam, formulating plan, explaining management plan to patient, coordinating care with RN and case managmenet, documentation and placing orders. This dictation was performed using [employer] speech recognition software. If you have questions, please do not hesitate to reach me on zkipsteraging system or call our hospital at [phone] * Emily Fan RN - 02/06/2025 1:37 PM EDT [facility] 02/08 Barrier: JADA, urinary obstruction, hyponatremia, check renal US, pneumonia- IV abx, elevated D-Dimer--start heparin drip Dispo-return to [facility], will need PT eval and auth * Janet Diop, PT - 02/06/2025 1:[address] [facility] Physical Therapy Evaluation & Treatment PT Discharge Recommendations: [facility]itentiary facility placement Staff Recommendations for safe patient handling: Min A with walker AM-PAC 6 Clicks Scoring Form: Unable: 1 A Lot: 2 A Little: 3 None: 4 How much difficulty does the patient currently have? Turning over in bed (including adjustment of bedclothes, sheets, and blankets) [] [] [] [x] Sitting down on and standing up from a chair with arms (wheelchair, bedside commode etc [] [] [x] [] Moving from lying on back to sitting on the side of the bed [] [] [x] [] How much help from another person does the patient currently need? Moving to and from a bed to a chair ( including a wheelchair) [] [] [x] [] To walk in hospital room [] [] [x] [] Climbing 3-5 steps with a railing [x] [] [] [] Score: 17 /24 score indicates the pt would benefit from STR after acute discharge Precautions Medical Precautions: Fall Risk (indwelling chaves ,PE) Safety Interventions: ID band on, Side rails up x2, Call kaiser within reach RUE Weight Bearing Status: Full LUE Weight Bearing Status: Full RLE Weight Bearing Status: Full LLE Weight Bearing Status: Full Orthopedic Precautions: Cervical Precautions Fall prevention education provided including use of call light in hospital, use of appropriate assistive device, safe mobility techniques, and safety measures at home. PT Received On: 02/06/25 PT Start Time: 1300 PT Stop Time: 1345 PT Time Calculation (min): 45 min General Family/Caregiver Present: No Precautions Medical Precautions: Fall Risk (indwelling chaves ,PE) Safety Interventions: ID band on, Side rails up x2, Call kaiser within reach RUE Weight Bearing Status: Full LUE Weight Bearing Status: Full RLE Weight Bearing Status: Full LLE Weight Bearing Status: Full Orthopedic Precautions: Cervical Precautions Cognition Overall Cognitive Status: Within Functional Limits Arousal/Alertness: Appropriate responses to stimuli Orientation Level: Oriented X4 Following Commands: Follows all commands and directions without difficulty Hearing: Intact Vision: Intact Speech: Intact Integumentary: indwelling chaves History of Present Illness: Patient is a 64 y.o. male admitted to [facility] on 02/04/2025. Patient Active Problem List Diagnosis Urinary retention Lower extremity edema History reviewed. No pertinent past medical history. History reviewed. No pertinent surgical history. Social History Home Living Environment: Home Living Type of Home: House Lives With: Spouse Home Adaptive Equipment: Cane, Walker - rolling, Raised toilet seat, Shower chair Home Layout: One level Home Access: Stairs to enter with rails Entrance Stairs-Rails: Rail on the left going up Entrance Stairs-Number of Steps: 2 Bathroom Shower/Tub: Tub/shower unit Bathroom Toilet: Handicapped height Prior Function Level of [place]: Independent with mobility and functional transfers Ambulation Status: Household ambulator, Community ambulator Receives Help From: Family Indoor Mobility Assistance: Independent Stairs Assistance : Independent Prior Device Use: Cane Do you drive?: Yes Mode of Transportation: Car Which is your dominant hand?: Right General Assessment 02/06/25 1300 PT Last Visit PT Received On 02/06/25 General Family/Caregiver Present No PT Time Calculation PT Start Time 1300 PT Stop Time 1345 PT Time Calculation (min) 45 min Precautions Medical Precautions Fall Risk (indwelling chaves ,PE) Safety Interventions ID band on;Side rails up x2;Call kaiser within reach RUE Weight Bearing Status Full LUE Weight Bearing Status Full RLE Weight Bearing Status Full LLE Weight Bearing Status Full Orthopedic Precautions Cervical Precautions Vital Signs Patient Identification Yes SpO2 98 % Oxygen Therapy Pulse Oximetry Type Continuous Pulse Oximetry Location Finger;Left Patient Activity At rest O2 Delivery Method Nasal cannula O2 Flow Rate (L/min) 2 L/min Pain Assessment Pain Assessment 0-10 Pain Score 5 - Moderate pain Pain Location (the pt states he has pain all over ) Cognition Overall Cognitive Status WFL Arousal/Alertness Appropriate responses to stimuli Orientation Level Oriented X4 Following Commands Follows all commands and directions without difficulty Home Living Type of Home House Lives With Spouse Home Adaptive Equipment Cane;Walker - rolling;Raised toilet seat;Shower chair Home Layout One level Home Access Stairs to enter with rails Entrance Stairs-Rails Rail on the left going up Entrance Stairs-Number of Steps 2 Bathroom Shower/Tub Tub/shower unit Bathroom Toilet Handicapped height Prior Function Level of [place] Independent with mobility and functional transfers Ambulation Status Household ambulator;Community ambulator Receives Help From Family Indoor Mobility Assistance Independent Stairs Assistance Independent Prior Device Use Cane Do you drive? Yes Mode of Transportation Car Which is your dominant hand? Right Sensation Sensation Comments the pt has intact sensation in B LE, finger tips were numb , and pins and needles all the way up his arms to his shoulders, He states he arms feel like cement . Proprioception Proprioception No apparent deficits Coordination Coordination Fine motor impaired Coordination and Movement Description decreased fine jose B hands R greater then left Static Sitting Balance Static Sitting-Level of Assistance Supervision Static Sitting-Balance Support Feet supported;No upper extremity supported Dynamic Sitting Balance Dynamic Sitting-Level of Assistance Supervision Dynamic Sitting-Balance Forward lean Dynamic Sitting-Balance Support Feet supported;Left upper extremity supported;Right upper extremitysupported Static Standing Balance Static Standing-Level of Assistance Contact guard Static Standing-Balance Support Right upper extremity supported;Left upper extremity supported Dynamic Standing Balance Dynamic Standing-Level of Assistance Minimum assistance Dynamic Standing-Balance Ambulation Dynamic Standing-Balance Support Right upper extremity supported;Left upper extremity supported Bed Mobility Sitting to Lying Assistance Supervision Lying to Sitting Assistance Supervision Transfers Sit to Stand Assistance Minimum assistance Sit to Stand Deficit Steadying;Assist for lift off Chair/Bed to Chair/Bed Transfer Assistance Minimum assistance Chair/Bed to Chair/Bed Transfer Deficit Steadying Ambulation Walking Assistance Minimum assistance Walking Deficit (lateral weight shift with amb and fatigues quickly with mod SOB) Device Rolling walker Distance Ambulated (ft) 5 Stairs Reason(s) not performed: Due to safety concerns (Comment) RUE Assessment RUE Assessment Impaired RUE Assessment Comments R shoulder strength 4/5 , elbow 3/5 and hand and fingers 2+/5 LUE Assessment LUE Assessment Impaired LUE Assessment Comments L shoulder strength 4/5 elbow 4/6 hand and fingers 3/5 RLE Assessment RLE Assessment Impaired LLE Assessment LLE Assessment Impaired LLE Assessment Comments B LE strength grossly 3+/5 PT Assessment PT Assessment Results Decreased strength;Decreased endurance;Impaired balance;Impaired gait;Decreased mobility Prognosis Good Evaluation/Treatment Tolerance Patient limited by fatigue Medical Staff Made Aware Yes Plan Treatment/Interventions Functional transfer training;LE strengthening/ROM;Endurance training;Patient/family training;Bed mobility;Gait training;Balance training PT Plan Skilled PT PT Frequency 2-5 days per week PT Discharge Recommendations penitentiary facility placement PT - Evaluation Status Complete PT Evaluation Time Entry PT Evaluation (Moderate) Time Entry 45 ADDITIONAL COMMENTS: Chart reviewed. RN clears pt for session. Pt agrees to participate and presented in supine upon PT arrival. All lines in place. Gait belt utilized throughout treatment to maximize safety. Medical precautions observed appropriately. Initiated education on the importance of PT, bed mobility safety, Transfer Safety, Ambulation Safety , Therapy Plan of Care, Home Safety, Energy Conservations strategies, and importance of OOB activity . Pt verbalized understanding. EXIT STATUS: Session ended with patient supine, tray table and call light within reach, and RN made aware. Physical Therapy Assessment/Plan Lopez Jackson is a 64 y.o. male admitted to [facility] on 02/04/2025 for Urinary retention [R33.9] Lower extremity edema [R60.0] Positive D dimer [R79.89] . Pt presents with decreased BLE strength, balance deficits, decreased activity tolerance, and far below functional baseline. Pt performed bed mobility Minimal assist, Bedrail, Transfers with Minimal assist, FWW and ambulates Minimal assist with FWW 5 ft . Pt will benefit from skilled acute PT during hospital stay to improve the deficits listed above and optimize function. PT recommends penitentiary facility placement when medically stable for safe discharge and to optimize functional mobility and independence. Goals Encounter Problems Encounter Problems (Active) Template: Physical Therapy Problem: PT Short Term Goals Dates: Start: 02/06/25 Goal: PT STG 1 the pt will go up and down 2 steps with rail and cane with supervision Dates: Start: 02/06/25 Expected End: 02/13/25 Goal: PT STG 2 the pt will ambulate 50' with walker and supervision Dates: Start: 02/06/25 Expected End: 02/13/25 Goal: PT STG 3 the pt will complete all transfers with supervision Dates: Start: 02/06/25 Expected End: 02/13/25 Encounter Problems (Resolved) There are no resolved problems. Education Documentation Home Exercise Program, taught by Janet Diop PT at 02/06/2025 2:33 PM. Learner: Patient Readiness: Acceptance Method: Explanation Response: Verbalizes Understanding Comment: Pt in agreement to return to STR following acute hospitalization Mobility Training, taught by Janet Diop PT at 02/06/2025 2:33 PM. Learner: Patient Readiness: Acceptance Method: Explanation Response: Verbalizes Understanding Comment: Pt in agreement to return to STR following acute hospitalization Education Comments No comments found. Janet Diop PT * Janet Diop PT - 02/06/2025 11:45 AM EDT Therapy session was attempted for Lopez Jackson by Janet Diop PT on 02/06/2025. The patient wasunable to be seen for the following reason(s): Out of room at a medical procedure Pt at VQ scan Plan for return visit: Later today for additional attempt * Izabella Starks RN - 02/05/2025 9:25 AM EDT 02/05/25923 Initial Transition Plan Initial Transition Plan [facility] Facility Discharge Planning Assistive Devices Walker Support Systems Spouse/significant other Medication Coverage Has Med Coverage Under Insurance Plan Yes Medication Affordability No concerns related to payment for meds Anticipated Discharge Needs Discipline following for SNF placement Artists' Model Informed Choice Informed Choice Given? Yes I met with patient with regards to d/c planning. Patient has been receiving rehab at [facility].Plan will be for patient to return when medically stable. HCP completed and faxed [facility] unknown Barrier: JADA, urinary obstruction, hyponatremia, check renal US, pneumonia- IV abx, elevated D-Dimer--start heparin drip Dispo-return to [address] [place] [address] HCP completed * Richie Cerna MD - 02/05/2025 9:00 AM EDT Images from the original note were not included. BREANNA PROGRESS NOTE Date: 02/05/2025 Author: Richie Cerna MD Patient ID: Lopez Jackson is a 64 y.o. male : 1960 MR#: [id number] SUBJECTIVE Patient denies to me any chest pain or shortness of breath. A Chaves catheter is in place and draining clear urine Current Medications: azithromycin, 500 mg, intravenous, q24h cefTRIAXone, 1 g, intravenous, q24h [Held by provider] hydroCHLOROthiazide, 12.5 mg, oral, Daily potassium chloride, 40 mEq, oral, Once heparin, 14 Units/kg/hr, Last Rate: 14 Units/kg/hr (02/05/25 0133) PRN medications: acetaminophen, heparin OR heparin, traMADoL OBJECTIVE Last Recorded Vitals: Vitals: 02/04/25 2344 02/05/25 0244 02/05/25 0440 02/05/25 0746 BP: 135/67 137/74 128/75 BP Location: Right arm Right arm Patient Position: Lying Lying Pulse: 77 71 79 Resp: 19 16 18 20 Temp: 36.1 ??C (96.9 ??F) 35.9 ??C (96.7 ??F) 36.4 ??C (97.6 ??F) TempSrc: Temporal Temporal SpO2: 97% 98% 99% Weight: Height: Physical Exam Constitutional: Appearance: Normal appearance. HENT: Head: Normocephalic and atraumatic. Mouth/Throat: Mouth: Mucous membranes are moist. Pharynx: Oropharynx is clear. Eyes: Extraocular Movements: Extraocular movements intact. Pupils: Pupils are equal, round, and reactive to light. Cardiovascular: Rate and Rhythm: Normal rate and regular rhythm. Pulses: Normal pulses. Heart sounds: Normal heart sounds. Pulmonary: Effort: Pulmonary effort is normal. Breath sounds: Rhonchi present. Abdominal: General: Abdomen is flat. Bowel sounds are normal. There is no distension. Palpations: Abdomen is soft. Tenderness: There is no abdominal tenderness. Musculoskeletal: General: Normal range of motion. Cervical back: Normal range of motion and neck supple. Right lower leg: No edema. Left lower leg: No edema. Skin: Capillary Refill: Capillary refill takes less than 2 seconds. Neurological: General: No focal deficit present. Mental Status: He is alert and oriented to person, place, and time. Mental status is at baseline. Motor: No weakness. Gait: Gait normal. Psychiatric: Mood and Affect: Mood normal. Behavior: Behavior normal. Lab Results: Admission on 02/04/2025 Component Date Value Sodium 02/04/2025 130 (L) Potassium 02/04/2025 3.9 Chloride 02/04/2025 98 CO2 02/04/2025 25 Anion Gap 02/04/2025 7 Glucose 02/04/2025 165 (H) BUN 02/04/2025 66 (H) Creatinine 02/04/2025 4.67 (H) eGFR 02/04/2025 13 (L) BUN/Creatinine Ratio 02/04/2025 14.1 Calcium 02/04/2025 9.1 AST (SGOT) 02/04/2025 21 ALT (SGPT) 02/04/2025 22 Alkaline Phosphatase 02/04/2025 90 Total Protein 02/04/2025 6.9 Albumin 02/04/2025 3.3 Total Bilirubin 02/04/2025 0.7 D-Dimer, Quant (D-DU) 02/04/2025 5,925 (H) Magnesium 02/04/2025 2.4 High Sensitivity Troponi* 02/04/2025 60 BNP 02/04/2025 180 (H) Ventricular Rate ECG 02/04/2025 70 Atrial Rate 02/04/2025 70 P-R Interval 02/04/2025 172 QRS Duration 02/04/2025 98 Q-T Interval 02/04/2025 442 QTc 02/04/2025 477 P Wave [place] 02/04/2025 34 R [place] 02/04/2025 -2 T [place] 02/04/2025 -16 ECG Interpretation 02/04/2025 Value:Normal sinus rhythm Normal ECG No previous ECGs available Confirmed by LISSA SAUL ([id number]) on 02/05/2025 7:17:54 AM WBC 02/04/2025 15.4 (H) RBC 02/04/2025 3.60 (L) Hemoglobin 02/04/2025 12.4 (L) Hematocrit 02/04/2025 33.9 (L) MCV 02/04/2025 95.5 MCH 02/04/2025 34.9 (H) MCHC 02/04/2025 36.6 RDW 02/04/2025 11.0 Platelets 02/04/2025 214 MPV 02/04/2025 10.6 NRBC 02/04/2025 0.0 NRBC Absolute 02/04/2025 0.00 Neutrophils Relative 02/04/2025 88.5 Lymphocytes Relative 02/04/2025 5.6 Monocytes Relative 02/04/2025 4.5 Eosinophils Relative 02/04/2025 0.1 Basophils Relative 02/04/2025 0.1 Immature Granulocytes Re* 02/04/2025 1.2 Neutrophils Absolute 02/04/2025 13.62 (H) Lymphocytes Absolute 02/04/2025 0.86 (L) Monocytes Absolute 02/04/2025 0.69 Eosinophils Absolute 02/04/2025 0.01 Basophils Absolute 02/04/2025 0.02 Immature Granulocytes Ab* 02/04/2025 0.18 (H) Specific [place] Urine 02/04/2025 1.010 pH, Urine 02/04/2025 5.5 Leukocytes, Urine 02/04/2025 Trace (A) Nitrite, Urine 02/04/2025 Negative Protein, Urine 02/04/2025 Negative Glucose, Urine 02/04/2025 Negative Ketones, Urine 02/04/2025 Negative Urobilinogen, Urine 02/04/2025 0.2 Bilirubin, Urine 02/04/2025 Negative Blood, Urine 02/04/2025 Negative RBC, Urine 02/04/2025 1.2 WBC, Urine 02/04/2025 4.2 (H) Squamous Epithelial, Uri* 02/04/2025 12 Bacteria, Urine 02/04/2025 Negative Hyaline Casts, Urine 02/04/2025 0.0 Heparin Anti-Xa 02/04/2025 <0.04 (L) Protime 02/04/2025 13.7 INR 02/04/2025 1.1 aPTT 02/04/2025 >400.0 (HH) Heparin Anti-Xa 02/04/2025 1.56 (HH) Heparin Anti-Xa 02/05/2025 0.80 (H) Sodium 02/05/2025 142 Potassium 02/05/2025 2.9 (LL) Chloride 02/05/2025 107 CO2 02/05/2025 27 Anion Gap 02/05/2025 8 Glucose 02/05/2025 87 BUN 02/05/2025 31 (H) Creatinine 02/05/2025 1.12 eGFR 02/05/2025 74 BUN/Creatinine Ratio 02/05/2025 27.7 Calcium 02/05/2025 9.3 Magnesium 02/05/2025 2.2 Heparin Anti-Xa 02/05/2025 0.40 WBC 02/05/2025 14.0 (H) RBC 02/05/2025 3.60 (L) Hemoglobin 02/05/2025 12.3 (L) Hematocrit 02/05/2025 34.3 (L) MCV 02/05/2025 95.0 MCH 02/05/2025 34.1 (H) MCHC 02/05/2025 35.9 RDW 02/05/2025 11.0 Platelets 02/05/2025 228 MPV 02/05/2025 10.7 NRBC 02/05/2025 0.0 NRBC Absolute 02/05/2025 0.00 Neutrophils Relative 02/05/2025 73.9 Lymphocytes Relative 02/05/2025 15.1 Monocytes Relative 02/05/2025 8.6 Eosinophils Relative 02/05/2025 0.4 Basophils Relative 02/05/2025 0.3 Immature Granulocytes Re* 02/05/2025 1.7 Neutrophils Absolute 02/05/2025 10.31 (H) Lymphocytes Absolute 02/05/2025 2.10 Monocytes Absolute 02/05/2025 1.20 (H) Eosinophils Absolute 02/05/2025 0.06 Basophils Absolute 02/05/2025 0.04 Immature Granulocytes Ab* 02/05/2025 0.24 (H) Imaging: CT Chest/Abdomen/Pelvis wo Contrast Narrative: INDICATION: elevated creatinine, hypoxic. evaluate for obstructive etiology, pneumonia, other Exam: Nonenhanced CT chest, abdomen and pelvis with multiplanar reformats. Comparison: None. Findings: CT chest: Lungs reveal bilateral lower lobe atelectasis. Minimal patchy ground-glass opacities primarily involving upper lobes (for example, 4; 100-130) are nonspecific, could suggest mild nonspecific multifocal pneumonia or pneumonitis (including COVID infection). No other mari consolidation. Airways appear patent. No pneumothorax. No mediastinal or hilar masses or adenopathy. No pleural or pericardial effusions. Osseous structures reveal no destructive osseous lesions. CT abdomen: Liver is free of gross focal lesions and ductal dilatation. Gallbladder is unremarkable. Spleen reveals an equivocal subtle wedge-shaped hypodensity (5; 109-135), raising the possibility of splenic infarct. Pancreas and right adrenal gland appear unremarkable. Left adrenal gland reveals a 17 mm low-density nodule (5; 125,-14 Hounsfield units), likely adenoma. Kidneys appear unremarkable. No urolithiasis or hydroureteronephrosis appreciated. No free intraperitoneal fluid or retroperitoneal masses or adenopathy. Abdominal aorta is normal caliber with [id number] calcific athero sclerosis. Bowel loops reveal no abnormal wall thickening or distention. Colonic diverticulosis is present, without CT evidence of diverticulitis. The appendix appears unremarkable. CT pelvis: Evaluation of the lower pelvis is limited by streak artifact from patient's right hip arthroplasty hardware. No gross pelvic masses, fluid or adenopathy. A Chaves catheter is present within urinary bladder. Osseous structures reveal no destructive osseous lesions. There are advanced left hip osteoarthritic changes. Impression: Impression: 1. Mild patchy bilateral upper lobe ground-glass opacities, concerning for multifocal pneumonia or nonspecific pneumonitis, as described above. 2. No acute abnormality within the abdomen or pelvis. This document has been electronically signed by: Keith De Souza MD on 02/04/2025 19:14:22 Vascular US Duplex Lower Extremity Venous Bilateral Narrative: INDICATION: edema Bilateral lower extremity duplex venous Doppler Comparison: None Technique: Grayscale/Color/Duplex Doppler sonographic evaluation of the deep venous system within both lower extremities. Findings: Right lower extremity Common femoral vein: Patent CFV/GSV junction: Patent Femoral vein: Patent Popliteal vein: Patent Infrapopliteal veins: Patent where seen Soft tissue: No focal abnormality Left lower extremity Common femoral vein: Patent CFV/GSV junction: Patent Femoral vein: Patent Popliteal vein: Patent Infrapopliteal veins: Patent where seen Soft tissues: No focal abnormality Impression: Impression: 1. Negative for bilateral lower extremity DVT 2. No Townsend's cyst This document has been electronically signed by: Gurvinder Roe MD on 02/04/2025 17:59:42 ASSESSMENT & PLAN Principal Problem: Urinary retention Active Problems: Lower extremity edema 64-year-old male essential hypertension, recent history of neck surgery and was at the rehab where routine blood work showed acute renal failure he was sent to emergency room for further evaluation. Lab work in the ED showed hyponatremia acute kidney injury with creatinine of 5, chest CT showed multifocal pneumonia, there was also elevated D-dimer for presumed PE Acute kidney injury most likely obstructive uropathy creatinine was 5.0, repeat was 4.6 this morning is 1.1 and normalized after a Chaves catheter was placed. Patient denies to me any difficulty urinating Most likely will keep Chaves catheter in and will need a urology follow-up outpatient Hyponatremia hypovolemic hyponatremia improved after IV fluids. Sodium is 142 Hypokalemia, not on any diuretic therapy, possibly poor p.o. intake, supplemented potassium given. Repeat lab work no arrhythmia on telemetry multifocal pneumonia. History of IKE on CPAP at night currently on 2 L of oxygen. He denies to me any shortness of breath, CT of the chest showed multifocal pneumonia, leukocytosis but patient is afebrile continue with ceftriaxone and Zithromax Elevated D-dimer. 5925, lower extremity DVT was negative patient was started on heparin drip till the VQ scan is completed Essential hypertension. HCTZ on hold in the setting of JADA. VTE Prophylaxis: On heparin drip Full Code - Default Disposition/patient need hospital stay because : Multifocal pneumonia needs VQ scan renal failure Health care proxy with phone number : * Matias Maxwell MD - 02/04/2025 6:52 PM EDT Lopez Jackson This patient was signed out to me by ED physician, Dr. Edward. Briefly, the patient presented to the ED with abnormal labs, notably elevated creatinine. Workup demonstrated significant JADA with evidence of obstructive uropathy, Chaves catheter now in place. D-dimer was also markedly elevated at approximately 6000, given patient's impaired renal function, unable to obtain CT angio chest to rule out PE, bilateral lower extremity venous Dopplers were negative for DVT. Signed out to me pending discussion with patient's neurosurgeon to determine if patient is cleared for empiric anticoagulation, also awaiting CT chest abdomen pelvis Noncon. Following results and discussion with neurosurgery, will plan for admission 6:52 PM EDT Spoke w/ Dr Davidson, pts neurosurgeon, who cleared pt for anticoagulation if needed. Heparin gtt ordered due to hypoxia, elevated ddimer, and concern for possible PE given that we are unable to obtain CT angio currently due to pts impaired renal function 7:[address] C/A/P demonstrates patchy ground glass opacities in bilateral upper lobes c/w pneumonia vs pneumonitis. Will cover w/ Rocephin, Zithromax for possible pneumonia. Continue with admission * Roseanne Webster RN - 02/04/2025 3:21 PM EDT Pt brought in by EMS from [facility] for an abnormal lab value per the facility from labs that were drawn today per ems. Pt has no complaints per EMS. Pt a&ox4, typically ambulatory. * Frances Edward MD - 02/04/2025 3:07 PM EDT HPI Chief Complaint Patient presents with abnormal labs 64 YO M BIB EMS for abnormal labs. Patient has a history of HTN, IKE on CPAP, recent cervical discectomy and C3-4 ? ACDF last month, currently in SNF for rehab, who was sent from rehab facility for elevated creatinine. Patient denies any history of kidney disease. He states that he has actually felt pretty well. States his neuro symptoms have slightly improved after recent surgery. Patient does admit that his rehab facility told him earlier today that his oxygen saturation was low, later normalized. He reports increased exertional shortness of breath today and noticed some right lower extremity edema over the last couple of days which is new to him. He denies any systemic signs of illness such as fevers, body aches, chills. Denies any chest pain or palpitations. No shortness of breath atrest. No abdominal pain. Denies any dysuria, hematuria or difficulty in urination. No further complaints offered. Andrés Coma Scale Score: 15 Patient History No past medical history on file. No past surgical history on file. No family history on file. Social History Tobacco Use Smoking status: Not on file Smokeless tobacco: Not on file Substance Use Topics Alcohol use: Not on file Drug use: Not on file Review of Systems Review of Systems Physical Exam ED Triage Vitals [02/04/25 1531] Temp Heart Rate Resp BP 36.9 ??C (98.4 ??F) 71 16 123/68 SpO2 Temp Source Heart Rate Source Patient Position 94 % Oral Monitor Lying BP Location FiO2 (%) Left arm;Upper -- Physical Exam Vitals and nursing note reviewed. Exam conducted with a fishing tackle repairer present. Constitutional: General: He is not in acute distress. Appearance: He is obese. He is not ill-appearing, toxic-appearing or diaphoretic. HENT: Head: Normocephalic and atraumatic. Right Ear: External ear normal. Left Ear: External ear normal. Nose: Nose normal. No congestion or rhinorrhea. Mouth/Throat: Mouth: Mucous membranes are moist. Pharynx: Oropharynx is clear. No oropharyngeal exudate or posterior oropharyngeal erythema. Eyes: General: No scleral icterus. Right eye: No discharge. Left eye: No discharge. Extraocular Movements: Extraocular movements intact. Conjunctiva/sclera: Conjunctivae normal. Pupils: Pupils are equal, round, and reactive to light. Cardiovascular: Rate and Rhythm: Normal rate and regular rhythm. Pulses: Normal pulses. Pulmonary: Effort: Pulmonary effort is normal. No respiratory distress. Breath sounds: No stridor. Examination of the right-middle field reveals decreased breath sounds. Examination of the right-lower field reveals decreased breath sounds. Decreased breath sounds present. Comments: Patient speaking in full sentences, no increased work of breathing Abdominal: General: Bowel sounds are normal. There is no distension. Palpations: Abdomen is soft. Tenderness: There is no abdominal tenderness. There is no right CVA tenderness or left CVA tenderness. Musculoskeletal: General: No swelling, tenderness, deformity or signs of injury. Normal range of motion. Cervical back: Normal range of motion and neck supple. Right lower leg: Edema present. Left lower leg: Edema present. Comments: R>L lower extremity edema Skin: General: Skin is warm and dry. Neurological: General: No focal deficit present. Mental Status: He is alert and oriented to person, place, and time. Mental status is at baseline. Cranial Nerves: No cranial nerve deficit. Sensory: Sensory deficit present. Motor: No weakness. Comments: +tingling to B/L upper extremities (not new). Strength 5/5 B/L in upper & lower extremities. Sensation to LE intact. No saddle anesthesia Psychiatric: Mood and Affect: Mood normal. Behavior: Behavior normal. ED Course & [facility] ED Course as of 02/04/25 1812 Sat Feb 04, 2025 1552 O2 saturation 92-94% on RA, placed on NC [BD] 1609 Bladder scan with 1300+. Patient again denies any urinary symptoms. He states that he last urinated about 4 hours ago, felt that he voided completely. No saddle anesthesia. Will place chaves. Renal ultrasound ordered [BD] 1733 Creatinine(!): 4.67 Trending down from previous labs [BD] 1744 D-Dimer, Quant (D-DU)(!): 5,925 Discussed with hospitalist. Will reach out to patient's neurosurgeon at [place] to see if are able to start IV heparin. Will hold off on Lovenox given JADA. [BD] 1808 Duplex negative for DVT [BD] 1812 Auto WBC(!): 15.4 [BD] ED Course User Index [BD] Frances Edward MD Clinical Impressions as of 02/04/25 181 Lower extremity edema Medical Decision Making 64 YO M BIB EMS for abnormal labs. Chart reviewed, creatinine elevated 5.04. See rest of history below. On arrival patient is afebrile, hemodynamically stable however oxygen saturation was fluctuating b/t 90-92% on RA, improved with nasal cannula. See physical exam below. Bladder scan was showing >1300cc, chaves placed. Labs significant for leukocytosis, hemoglobin baseline. Creatinine is elevated at 4.67 which is improving from previous study earlier today. Dimer positive to 5,900. Duplex negative for DVT. CT chest abdomen pelvis is pending. Neurosurgery consulted to discuss IV heparin for elevated dimer. Able to obtain VQ scan, will defer CT angio given elevated creatinine. Hospitalist is aware of this patient and we do anticipate admission. [facility] Please see his note for final dispo planning. Procedures Frances Edward MD 02/04/25 1627 Frances Edward MD 02/04/25 181 documented in this encounter H&P Notes * Naeem Daniels MD - 02/04/2025 8:49 PM EDT Images from the original note were not included. BREANNA HISTORY AND PHYSICAL Please contact author [Naeem Daniels MD] via Cookapp/Zoosk. Patient: Lopez Jackson Admission Date/Time: 02/04/2025 3:15 PM : 1960 [64 y.o.] Patient's PCP: Jenn Hu MD Attending Provider: Frances Edward MD;Maitas* CHIEF COMPLAINT Abnormal blood work. HISTORY OF PRESENT ILLNESS 64-year-old male with past medical history of morbid obesity, essential hypertension, recent history of neck surgery who was discharged to rehab coming into the hospital with abnormal blood work. Patient had blood work performed which showed elevated creatinine so the patient was brought into the hospital. Patient stated that he had constipation for the last 2 days. He had urinated earlier this afternoon before coming to the hospital. Patient denied any active complaints of lightheadedness, dizziness, chest pain or shortness of breath. Because of elevated creatinine, the patient was sent to the hospital. Patient was found to have acute hyponatremia in the setting of renal dysfunction as well. Laboratory workup was suggestive of chronic anemia with a baseline hemoglobin of 11-12. D-dimer was elevated. DVT scan was negative. Patient underwent CT scan of the chest which was suggestive of mild patchy bilateral upper lobe ground glass opacities concerning for pneumonia. Review of Systems A complete 14 point review of symptoms was done and is negative except as mentioned in the note above. MEDICAL HISTORY Past Medical History No past medical history on file. Past Surgical History No past surgical history on file. Social History Family History family history is not on file. Allergies has No Known Allergies. Home Medications No current facility-administered medications on file prior to encounter. Current Outpatient Medications on File Prior to Encounter Medication Sig Dispense Refill ??? hydroCHLOROthiazide (MICROZIDE) 12.5 mg capsule Take 1 capsule (12.5 mg total) by mouth 1 (one)time each day. ??? [DISCONTINUED] amLODIPine (NORVASC) 10 mg tablet Take 1 tablet (10 mg total) by mouth 1 (one) time each day. ??? [DISCONTINUED] ascorbic acid (VITAMIN C) 1,000 mg tablet Take 1 tablet (1,000 mg total) by mouth 1 (one) time each day. (Patient not taking: Reported on 01/28/2025) ??? [DISCONTINUED] carvediloL (COREG) 25 mg tablet Take 1 tablet (25 mg total) by mouth 2 (two) times a day with meals. (Patient not taking: Reported on 01/28/2025) ??? [DISCONTINUED] cholecalciferol (VITAMIN D-3) 50 mcg (2,000 unit) tablet Take 1 tablet (2,000 Units total) by mouth 1 (one) time each day. (Patient not taking: Reported on 01/28/2025) ??? [DISCONTINUED] fexofenadine (CRISELDA) 180 mg tablet Take 1 tablet (180 mg total) by mouth 1 (one) time each day. (Patient not taking: Reported on 01/28/2025) ??? [DISCONTINUED] methocarbamoL (ROBAXIN) 750 mg tablet Take 1 tablet (750 mg total) by mouth 2 (two) times a day if needed for muscle spasms. ??? [DISCONTINUED] naproxen (NAPROSYN) 500 mg tablet Take 1 tablet (500 mg total) by mouth 2 (two) times a day if needed for mild pain or moderate pain. ??? [DISCONTINUED] olmesartan (BENICAR) 40 mg tablet Take 1 tablet (40 mg total) by mouth 1 (one) time each day. (Patient not taking: Reported on 01/28/2025) ??? [DISCONTINUED] omeprazole (PriLOSEC) [address] capsule Take 1 capsule (20 mg total) by mouth 1 (one) time each day. Do not crush or chew. (Patient not taking: Reported on 01/28/2025) ??? [DISCONTINUED] oxyCODONE-acetaminophen (PERCOCET) 5-325 mg per tablet Take 1 tablet by mouth every 6 (six) hours if needed for severe pain for up to 3 days. Max Daily Amount: 4 tablets 12 tablet 0 ??? [DISCONTINUED] predniSONE (DELTASONE) 20 mg tablet Take 1 tablet (20 mg total) by mouth 2 timesdaily. (Patient not taking: Reported on 01/28/2025) OBJECTIVE Vitals Visit Vitals BP 123/68 (BP Location: Left arm;Upper, Patient Position: Lying) Pulse 71 Temp 36.9 ??C (98.4 ??F) (Oral) Resp 16 Temp (24hrs), Av.9 ??C (98.4 ??F), Min:36.9 ??C (98.4 ??F), Max:36.9 ??C (98.4 ??F) Body mass index is 36.94 kg/m??. No results found for: PTWT , PTHT Physical Examination Physical Exam Constitutional: General: Not in acute distress. Appearance: Obese appearing. HENT: Head: Normocephalic and atraumatic. Right Ear: External ear normal. Left Ear: External ear normal. Nose: Nose normal. Cardiovascular: Rate and Rhythm: Normal rate and regular rhythm. Pulses: Normal pulses. Heart sounds: Normal heart sounds. No murmur heard. No friction rub. No gallop. Pulmonary: Effort: Pulmonary effort is normal. No respiratory distress. Breath sounds: Normal breath sounds. No stridor. No wheezing or rales. Abdominal: General: Abdomen is flat. There is no distension. Palpations: Abdomen is soft. There is no mass. Tenderness: There is no abdominal tenderness. Chaves catheter in place. Musculoskeletal: General: No swelling or deformity. Normal range of motion. Cervical back: Normal range of motion. Right lower le+ edema. Left lower le+ edema. Skin: General: Skin is warm and dry. Neurological: General: No focal deficit present. Mental Status: Alert and oriented to person, place, and time. Mental status is at baseline. Psychiatric: Mood and Affect: Mood normal. Behavior: Behavior normal. LAB RESULTS (most recent) HEMATOLOGY Lab Results Component Value Date WBC 15.4 (H) 02/04/2025 HGB 12.4 (L) 02/04/2025 HCT 33.9 (L) 02/04/2025 MCV 95.5 02/04/2025 PLT 214 02/04/2025 CHEMISTRY Lab Results Component Value Date GLUCOSE 165 (H) 02/04/2025 NA 130 (L) 02/04/2025 K 3.9 02/04/2025 CO2 25 02/04/2025 CL 98 02/04/2025 BUN 66 (H) 02/04/2025 CREATININE 4.67 (H) 02/04/2025 EGFR 13 (L) 02/04/2025 CALCIUM 9.1 02/04/2025 MG 2.4 02/04/2025 ANIONGAP 7 02/04/[address] Chest/Abdomen/Pelvis wo Contrast Final Result Impression: 1. Mild patchy bilateral upper lobe ground-glass opacities, concerning for multifocal pneumonia or nonspecific pneumonitis, as described above. 2. No acute abnormality within the abdomen or pelvis. This document has been electronically signed by: Keith De Souza MD on 02/04/2025 19:14:22 Vascular US Duplex Lower Extremity Venous Bilateral Final Result Impression: 1. Negative for bilateral lower extremity DVT 2. No Townsend's cyst This document has been electronically signed by: Gurvinder Roe MD on 02/04/2025 17:59:42 NM Lung Ventilation Perfusion Imaging (Results Pending) US Retroperitoneal Complete (Results Pending) ASSESSMENT & PLAN 64-year-old male coming into the hospital from rehab with abnormal blood work. Elevated creatinine suggestive of renal dysfunction, postrenal JADA in the setting of urinary obstruction status post Chaves. Acute hyponatremia in the setting of renal dysfunction from JADA. Imaging does not show hydronephrosis. Will get a renal ultrasound. Check labs tomorrow. Avoid nephrotoxic drugs. Strict input and output monitoring. Multifocal pneumonia. Continue with Rocephin and azithromycin. Tylenol for pain and fever. Elevated D-dimer. DVT scan negative. Patient started on heparin drip because of high probability. Plan to get VQ scan tomorrow. Essential hypertension. HCTZ on hold in the setting of JADA. Morbid obesity. Chronic anemia with a baseline hemoglobin of 11-12. Stable. Admission checklist [x] Code status: Full Code - Default [x] VTE Prophylaxis: Heparin gtt. [x] Diet order on admission: Dietary Orders (From admission, onward) Start Ordered 02/04/252032 Adult diet [facility]; General; Regular (Order Panel) Diet effective now Question Answer Comment Location [facility] Diet Type (req) General General Diet Regular 02/04/252032 [x] Medication reconciliation Naeem Daniels MD [facility], 7am-5pm Available thru EpicChat After 5pm, please EpicChat cross coverage 02/04/2025 8:55 PM EDT documented in this encounter Consult Notes * Subramony Subramkatrin-MD Deysi - 02/08/2025 5:01 PM EDTAssociated Order(s): IP CONSULT TO HEMATOLOGY Requesting physician - dr Lees Reason for consultation #1 pulmonary embolism Postoperative HPI This is a 64-year-old gentleman, who was admitted to [facility] via the emergency room on 02/04/2025. He recently underwent cervical disc surgery at [facility], in December. He was discharged to a rehab facility. He reports that since the surgery his mobility has been limited, and has not been able to walk much. On 02/04/2025, he was found to have a low oxygen saturation, therefore referred to ER. Workup in the ER included imaging studies, noncontrast CT CAP that showed mild patchy bilateral upper lobe ground glass opacities. No acute abnormality in abdomen and pelvis. Due to elevated creatinine, and for concerns of PE, he had a NM lung perfusion imaging that showed high probability for pulmonary emboli, there was a segmental defect within the right upper lobe. On the left side large defect noted within the left upper lobe in the lingular segment with moderate defect in superior segment. Vascular duplex-bilateral lower extremity, negative for DVT. Thereafter patient was started on heparin infusion and transitioned to Eliquis yesterday. Today he reports that he would like to be transferred back to rehab and continue follow-up with his PCP in [place]. Of note, discharge was planned for yesterday but patient could not be transferred He also states that when he was last sent to rehab he did not have the pain medicine nor the hypertension medication, and he suffered overnight until 11 AM when the medicines were delivered Past medical history Essential hypertension, obesity, anxiety Past surgical history-neck surgery has reviewed Family history-negative for DVT PE Medications-reviewed Allergies-NKDA Examination Middle-aged man, anxious Vital signs Vitals: 02/08/25 1641 BP: 136/67 Pulse: 73 Resp: 18 Temp: 36.2 ??C (97.2 ??F) SpO2: 98% HEENT-pink conjunctiva Oral mucosa moist Neck-decreased mobility recent surgery no adenopathy Lungs -decreased breath sounds bilateral bases heart sounds S1 and S2 Abdomen-distention, soft nontender Extremities grade 1 edema lab work-reviewed Lab Results Component Value Date WBC 11.7 (H) 02/08/2025 WBC 11.7 (H) 02/08/2025 HGB 11.9 (L) 02/08/2025 HGB 11.9 (L) 02/08/2025 HCT 33.7 (L) 02/08/2025 HCT 33.7 (L) 02/08/2025 MCV 95.7 02/08/2025 MCV 95.7 02/08/2025 PLT 285 02/08/2025 PLT 285 02/08/2025 Imaging-reviewed Transthoracic echocardiogram (TTE) complete with PRN contrast, bubble, strain, and 3D order panel Left ventricle cavity size is normal. Left ventricular systolic function is in the normal range with an ejection fraction of 55-60%. No regional LV wall motion abnormalities noted. Right Ventricle: Enlarged right ventricular size. Systolic function is normal. RV S' 18 cm/sec. Normal TAPSE (> 17 mm), measuring 20 mm. Tricuspid Valve: There is mild regurgitation. The right ventricular systolic pressure is mildly elevated. The RVSP is estimated at 41 mmHg. Results for orders placed during the hospital encounter of 02/04/25 CT Chest/Abdomen/Pelvis wo Contrast Narrative INDICATION: elevated creatinine, hypoxic. evaluate for obstructive etiology, pneumonia, other Exam: Nonenhanced CT chest, abdomen and pelvis with multiplanar reformats. Comparison: None. Findings: CT chest: Lungs reveal bilateral lower lobe atelectasis. Minimal patchy ground-glass opacities primarily involving upper lobes (for example, 4; 100-130) are nonspecific, could suggest mild nonspecific multifocal pneumonia or pneumonitis (including COVID infection). No other mari consolidation. Airways appear patent. No pneumothorax. No mediastinal or hilar masses or adenopathy. No pleural or pericardial effusions. Osseous structures reveal no destructive osseous lesions. CT abdomen: Liver is free of gross focal lesions and ductal dilatation. Gallbladder is unremarkable. Spleen reveals an equivocal subtle wedge-shaped hypodensity (5; 109-135), raising the possibility of splenic infarct. Pancreas and right adrenal gland appear unremarkable. Left adrenal gland reveals a 17 mm low-density nodule (5; 125,-14 Hounsfield units), likely adenoma. Kidneys appear unremarkable. No urolithiasis or hydroureteronephrosis appreciated. No free intraperitoneal fluid or retroperitoneal masses or adenopathy. Abdominal aorta is normal caliber with [id number] calcific athero sclerosis. Bowel loops reveal no abnormal wall thickening or distention. Colonic diverticulosis is present, without CT evidence of diverticulitis. The appendix appears unremarkable. CT pelvis: Evaluation of the lower pelvis is limited by streak artifact from patient's right hip arthroplasty hardware. No gross pelvic masses, fluid or adenopathy. A Chaves catheter is present within urinary bladder. Osseous structures reveal no destructive osseous lesions. There are advanced left hip osteoarthritic changes. Impression Impression: 1. Mild patchy bilateral upper lobe ground-glass opacities, concerning for multifocal pneumonia or nonspecific pneumonitis, as described above. 2. No acute abnormality within the abdomen or pelvis. This document has been electronically signed by: Keith De Souza MD on 02/04/2025 19:14:22 Impression and plan 64-year-old gentleman with recent neck surgery, and impaired mobility who presents with bilateral extensive pulmonary embolism with hypoxia. Echocardiogram mild right heart strain with elevated right-sided pressure I reviewed with the patient regarding the likely cause of pulmonary embolism which is most likely due to his recent immobilization from surgery. I recommend anticoagulation, okay to continue with theoral anticoagulant such as Eliquis, and consideration for treatment up to 1 year with close monitoring for any significant mucosal bleeding. Patient wishes to continue follow-up with his PCP in [place] and hematology practice as recommended by them. I will convey my recommendations to May team, please call with any questions documented in this encounter Plan of Treatment Not on file documented as of this encounter Procedures Procedure Name Priority Date/Time Associated Diagnosis Comments ECG OUTSIDE 02/10/2025 OXYGEN THERAPY, ADULT Routine 02/08/2025 8:02 AM EDT PEP THERAPY Routine 02/08/2025 6:01 AM EDT C-REACTIVE PROTEIN Routine 02/08/2025 5: 31 AM EDT PHOSPHORUS Add-On 02/08/2025 5:31 AM EDT MAGNESIUM Add-On 02/08/2025 5:31 AM EDT BASIC METABOLIC PANEL Add-On 02/08/2025 5:31 AM EDT CBC WITH AUTO DIFFERENTIAL Add-On 02/08/2025 5:30 AM EDT D-DIMER Routine 02/08/2025 5:30 AM EDT COMPLETE BLOOD COUNT Timed 02/08/2025 5:30 AM EDT CBC AND DIFFERENTIAL Add-On 02/08/2025 5:30 AM EDT CPAP NIV Routine 02/07/2025 10:00 PM EDT OXYGEN THERAPY, ADULT Routine 02/07/2025 8:00 PM EDT ACTIVATED PARTIAL THROMBOPLASTIN TIME STAT 02/07/2025 4:40 PM EDT HEPARIN AND LOW MOLECULAR WEIGHT ANTI XA LEVEL Timed 02/07/2025 12:03 PM EDT TRANSTHORACIC ECHOCARDIOGRAM (TTE) COMPLETE W/ CONTRAST Routine 02/07/2025 10:37 AM EDT Lower extremity edema Positive D dimer OXYGEN THERAPY, ADULT Routine 02/07/2025 8:02 AM EDT TROPONIN I HIGH SENSITIVITY Routine 02/07/2025 6:31 AM EDT THYROID STIMULATING HORMONE WITH REFLEX TO FREE T4 AND FREE T3 Routine 02/07/2025 6:31 AM EDT PROSTATE SPECIFIC ANTIGEN DIAGNOSTIC Routine 02/07/2025 6:31 AM EDT PROTHROMBIN TIME WITH INR Routine 02/07/2025 6:31 AM EDT HEPARIN AND LOW MOLECULAR WEIGHT ANTI XA LEVEL Timed 02/07/2025 6:31 AM EDT D-DIMER Routine 02/07/2025 6:31 AM EDT COMPLETE BLOOD COUNT Routine 02/07/2025 6:31 AM EDT PHOSPHORUS Routine 02/07/2025 6:31 AM EDT MAGNESIUM Routine 02/07/2025 6:31 AM EDT HEMOGLOBIN A1C Routine 02/07/2025 6:31 AM EDT VITAMIN B12 Routine 02/07/2025 6:31 AM EDT COMPREHENSIVE METABOLIC PANEL Routine 02/07/2025 6:31 AM EDT PEP THERAPY Routine 02/07/2025 6:01 AM EDT RESPIRATORY VIRUS PANEL MOLECULAR STUDY Routine 02/07/2025 12:37 AM EDT HEPARIN AND LOW MOLECULAR WEIGHT ANTI XA LEVEL Timed 02/07/2025 12:08 AM EDT CPAP NIV Routine 02/06/2025 10:00 PM EDT OXYGEN THERAPY, ADULT Routine 02/06/2025 8:00 PM EDT HEPARIN AND LOW MOLECULAR WEIGHT ANTI XA LEVEL Timed 02/06/2025 6:46 PM EDT VAS US DUPLEX LOWER EXT VENOUS BILAT Routine 02/06/2025 6:15 PM EDT Positive D dimer PEP THERAPY Routine 02/06/2025 4:32 PM EDT HOME O2 EVAL (DESATURATION SCREEN) Routine 02/06/2025 4:32 PM EDT OXYGEN THERAPY, ADULT Routine 02/06/2025 2:05 PM EDT OXYGEN THERAPY, ADULT Routine 02/06/2025 2:05 PM EDT OXYGEN THERAPY, ADULT Routine 02/06/2025 2:05 PM EDT HEPARIN AND LOW MOLECULAR WEIGHT ANTI XA LEVEL Timed 02/06/2025 12:39 PM EDT NM LUNG PERFUSION IMAGING Routine 02/06/2025 10:41 AM EDT SST - GOLD Routine 02/06/2025 6:12 AM EDT EXTRA TUBES Routine 02/06/2025 6:12 AM EDT CBC WITH AUTO DIFFERENTIAL Add-On 02/06/2025 6:12 AM EDT LAVENDER - EDTA Routine 02/06/2025 6:12 AM EDT HEPARIN AND LOW MOLECULAR WEIGHT ANTI XA LEVEL Timed 02/06/2025 6:12 AM EDT D-DIMER Add-On 02/06/2025 6:12 AM EDT CBC AND DIFFERENTIAL Add-On 02/06/2025 6:12 AM EDT C-REACTIVE PROTEIN Add-On 02/06/2025 6: 12 AM EDT CREATINE KINASE Add-On 02/06/2025 6:12 AM EDT BASIC METABOLIC PANEL Add-On 02/06/2025 6:12 AM EDT HEPARIN AND LOW MOLECULAR WEIGHT ANTI XA LEVEL Timed 02/06/2025 12:03 AM EDT CPAP NIV Routine 02/05/2025 10:00 PM EDT HEPARIN AND LOW MOLECULAR WEIGHT ANTI XA LEVEL Timed 02/05/2025 6:20 PM EDT EXTRA TUBES Routine 02/05/2025 12:09 PM EDT LAVENDER - EDTA Routine 02/05/2025 12:09 PM EDT HEPARIN AND LOW MOLECULAR WEIGHT ANTI XA LEVEL Timed 02/05/2025 12:09 PM EDT POTASSIUM Routine 02/05/2025 12:09 PM EDT CBC WITH AUTO DIFFERENTIAL Routine 02/05/2025 5:27 AM EDT HEPARIN AND LOW MOLECULAR WEIGHT ANTI XA LEVEL Timed 02/05/2025 5:27 AM EDT CBC AND DIFFERENTIAL Routine 02/05/2025 5:27 AM EDT MAGNESIUM Routine 02/05/2025 5:27 AM EDT BASIC METABOLIC PANEL Routine 02/05/2025 5:27 AM EDT CPAP NIV Routine 02/05/2025 3:01 AM EDT CPAP NIV Routine 02/05/2025 3:01 AM EDT HEPARIN AND LOW MOLECULAR WEIGHT ANTI XA LEVEL Routine 02/05/2025 12:10 AM EDT ACTIVATED PARTIAL THROMBOPLASTIN TIME STAT 02/04/2025 10:07 PM EDT HEPARIN AND LOW MOLECULAR WEIGHT ANTI XA LEVEL Timed 02/04/2025 10:[address] CHEST/ABDOMEN/PELVIS WO CONTRAST STAT 02/04/2025 6:00 PM EDT VAS US DUPLEX LOWER EXT VENOUS BILAT STAT 02/04/2025 5:35 PM EDT Lower extremity edema B-TYPE NATRIURETIC PEPTIDE STAT 02/04/2025 4:32 PM EDT TROPONIN I HIGH SENSITIVITY STAT 02/04/2025 4:29 PM EDT CBC WITH AUTO DIFFERENTIAL STAT 02/04/2025 4:29 PM EDT PROTHROMBIN TIME WITH INR STAT Add-on 02/04/2025 4:29 PM EDT HEPARIN AND LOW MOLECULAR WEIGHT ANTI XA LEVEL Add-On 02/04/2025 4:29 PM EDT D-DIMER STAT 02/04/2025 4:29 PM EDT CBC AND DIFFERENTIAL STAT 02/04/2025 4:29 PM EDT MAGNESIUM STAT 02/04/2025 4:29 PM EDT COMPREHENSIVE METABOLIC PANEL STAT 02/04/2025 4:29 PM EDT URINALYSIS WITH REFLEX MICROSCOPIC STAT 02/04/2025 4:13 PM EDT URINALYSIS WITH REFLEX MICROSCOPIC STAT 02/04/2025 4:13 PM EDT ECG 12-LEAD STAT 02/04/2025 3:52 PM EDT documented in this encounter Results * ECG-Outside (02/10/2025) us Provider Onbase MD ECG ORDERABLES Final Result * (ABNORMAL) Basic metabolic panel (02/08/2025 5:31 AM EDT) Sodium 139 133 - 145 mmol/L LAB CHEMISTRY METHOD 02/08/2025 8:39 AM [facility] Potassium 3.4(L) 3.5 - 5.5 mmol/L LAB CHEMISTRY METHOD 02/08/2025 8:39 AM [facility] Chloride 105 96 - 110 mmol/L LAB CHEMISTRY METHOD 02/08/2025 8:39 AM [facility] CO2 25 21 - 32 mmol/L LAB CHEMISTRY METHOD 02/08/2025 8:39 AM [facility] Anion Gap 9 3 - 11 LAB CHEMISTRY METHOD 02/08/2025 8:39 AM [facility] Glucose 87 70 - 100 mg/dL LAB CHEMISTRY METHOD 02/08/2025 8:39 AM [facility] BUN 5 5 - 25 mg/dL LAB CHEMISTRY METHOD 02/08/2025 8:39 AM [facility] Creatinine 0.60(L) 0.70 - 1.30 mg/dL LAB CHEMISTRY METHOD 02/08/2025 8:39 AM [facility] eGFR 108 >=60 mL/min/1. 73m2 LAB CHEMISTRY METHOD 02/08/2025 8:39 AM EDT [facility] Comment:Calculation based on the Chronic Kidney Disease Epidemiology Collaboration (CKD-EPI) equation refit without adjustment for race. BUN/Creatinine Ratio 8.3 LAB CHEMISTRY METHOD 02/08/2025 8:39 AM EDT [facility] Calcium 9.0 8.5 - 10.5 mg/dL LAB CHEMISTRY METHOD 02/08/2025 8:39 AM EDT [facility] Blood Venous blood specimen / Unknown Venipuncture / Unknown 02/08/2025 5:31 AM EDT 02/08/2025 6:21 AM EDT us Alon Gonsalez MD LAB BLOOD ORDERABLE S Final Result Performing Organization Address City/[facility]/ZIP Co de Phone Number [facility] [address] [place] [address], [place] [phone] * Phosphorus (02/08/2025 5:31 AM EDT) Phosphorus 4.5 2.5 - 4.5 mg/dL LAB CHEMISTRY METHOD 02/08/2025 8:00 AM EDT [facility] Blood Venous blood specimen / Unknown Venipuncture / Unknown 02/08/2025 5:31 AM EDT 02/08/2025 6:21 AM EDT us Alon Gonsalez MD LAB BLOOD ORDERABLE S Final Result [facility] [address] [place] [address], [place] [phone] * (ABNORMAL) Magnesium (02/08/2025 5:31 AM EDT) Magnesium 1.8(L) 1.9 - 2.6 mg/dL LAB CHEMISTRY METHOD 02/08/2025 8:00 AM EDT [facility] Blood Venous blood specimen / Unknown Venipuncture / Unknown 02/08/2025 5:31 AM EDT 02/08/2025 6:21 AM EDT Alon Gonsalez MD LAB BLOOD ORDERABLE S Final Result Performing Organization Address [facility]/ZIP Co de Phone Number [facility] [address] [place] [address], [place] [phone] * (ABNORMAL) C-reactive protein (02/08/2025 5:31 AM EDT) [facility] C-Reactive Protein 11.10(H) <=0.50 mg/dL LAB CHEMISTRY METHOD 02/08/2025 7:30 AM EDT [facility] Blood Venous blood specimen / Unknown Venipuncture / Unknown 02/08/2025 5:31 AM EDT 02/08/2025 6:21 AM EDT Rosario Lees MD LAB BLOOD ORDERABLES Final Resu lt Performing Organization Address [facility] de Phone Number [facility] [address] [place] [address], [place] [phone] * (ABNORMAL) CBC auto differential (02/08/2025 5:30 AM EDT) [facility] WBC 11.7(H) 4.8 - 10.8 K/[facility] LAB HEMETOLOGY METHOD 02/08/2025 8:06 AM EDT [facility] RBC 3.50(L) 4.50 - 5.50 M/[facility] LAB HEMETOLOGY METHOD 02/08/2025 8:06 AM EDT [facility] Hemoglobin 11.9(L) 13.5 - 17.5 g/dL LAB HEMETOLOGY METHOD 02/08/2025 8:06 AM [facility] Hematocrit 33.7(L) 42.0 - 54.0 % LAB HEMETOLOGY METHOD 02/08/2025 8:06 AM [facility] MCV 95.7 79.0 - 98.0 FL LAB HEMETOLOGY METHOD 02/08/2025 8:06 AM [facility] MCH 33.8(H) 27.0 - 32.0 pcg LAB HEMETOLOGY METHOD 02/08/2025 8:06 AM [facility] MCHC 35.3 32.0 - 37.0 g/dL LAB HEMETOLOGY METHOD 02/08/2025 8:06 AM [facility] RDW 11.2 11.0 - 15.0 % LAB HEMETOLOGY METHOD 02/08/2025 8:06 AM [facility] Platelets 285 130 - 400 K/mcL LAB HEMETOLOGY METHOD 02/08/2025 8:06 AM [facility] MPV 10.0 7.0 - 11.0 FL LAB HEMETOLOGY METHOD 02/08/2025 8:06 AM [facility] NRBC 0.0 <1.0 % LAB HEMETOLOGY METHOD 02/08/2025 8:06 AM [facility] NRBC Absolute 0.00 <0.10 K/mcL LAB HEMETOLOGY METHOD 02/08/2025 8:06 AM [facility] Neutrophils Relative 73.1 % LAB HEMETOLOGY METHOD 02/08/2025 8:06 AM [facility] Comment:This is an appended report. These results have been appended to a previously preliminary verified report. Lymphocytes Relative 13.6 % LAB HEMETOLOGY METHOD 02/08/2025 8:06 AM [facility] Comment:This is an appended report. These results have been appended to a previously preliminary verified report. Monocytes Relative 8.8 % LAB HEMETOLOGY METHOD 02/08/2025 8:06 AM [facility] Comment:This is an appended report. These results have been appended to a previously preliminary verified report. Eosinophils Relative 2.3 % LAB HEMETOLOGY METHOD 02/08/2025 8:06 AM [facility] Comment:This is an appended report. These results have been appended to a previously preliminary verified report. Basophils Relative 0.3 % LAB HEMETOLOGY METHOD 02/08/2025 8:06 AM [facility] Comment:This is an appended report. These results have been appended to a previously preliminary verified report. Immature Granulocytes Relative 1.9 % LAB HEMETOLOGY METHOD 02/08/2025 8:06 AM [facility] Comment:This is an appended report. These results have been appended to a previously preliminary verified report. Neutrophils Absolute 8.28(H) 1.50 - 7.00 K/mcL LAB HEMETOLOGY METHOD 02/08/2025 8:06 AM [facility] Comment:This is an appended report. These results have been appended to a previously preliminary verified report. Lymphocytes Absolute 1.54 1.00 - 5.00 K/mcL LAB HEMETOLOGY METHOD 02/08/2025 8:06 AM [facility] Comment:This is an appended report. These results have been appended to a previously preliminary verified report. Monocytes Absolute 0.99 0.20 - 1.00 K/mcL LAB HEMETOLOGY METHOD 02/08/2025 8:06 AM [facility] Comment:This is an appended report. These results have been appended to a previously preliminary verified report. Eosinophils Absolute 0.26 0.00 - 0.50 K/mcL LAB HEMETOLOGY METHOD 02/08/2025 8:06 AM [facility] Comment:This is an appended report. These results have been appended to a previously preliminary verified report. Basophils Absolute 0.03 0.00 - 0.20 K/mcL LAB HEMETOLOGY METHOD 02/08/2025 8:06 AM EDT [facility] Comment:This is an appended report. These results have been appended to a previously preliminary verified report. Immature Granulocytes Absolute 0.21(H) 0.00 - 0.03 K/mcL LAB HEMETOLOGY METHOD 02/08/2025 8:06 AM EDT [facility] Comment:This is an appended report. These results have been appended to a previously preliminary verified report. Blood Venous blood specimen / Unknown Venipuncture / Unknown 02/08/2025 5:30 AM EDT 02/08/2025 6:21 AM EDT Alon Gonsalez MD LAB BLOOD ORDERABLE S Final Result [facility] [address] [place] [address], * (ABNORMAL) D-Dimer (02/08/2025 5:30 AM EDT) D-Dimer, Quant (D-DU) 2,207(H) <=230 ng/mL DDU LAB COAGULATION METHOD 02/08/2025 7:12 AM EDT [facility] Blood Venous blood specimen / Unknown Venipuncture / Unknown 02/08/2025 5:30 AM EDT 02/08/2025 6:21 AM EDT Narrative [facility] - 02/08/2025 7:12 AM EDT D-Dimer <230 ng/mL (D-Dimer units) is the threshold for exclusion of DVT/PE. D-Dimer may be elevated in: Critically ill, severely infected, trauma patients, DIC, acute CVA, acute RI, unstable angina, AF, old age, , and smoking. D-Dimer may be decreased with: Initiation of heparin therapy and oral anticoagulants. us Rosario Lees MD LAB BLOOD ORDERABLES Final Resu lt [facility] [address] [place] [address], * (ABNORMAL) CBC - Every 3 Days (02/08/2025 5:30 AM EDT) WBC 11.7(H) 4.8 - 10.8 K/mcL LAB HEMETOLOGY METHOD 02/08/2025 6:38 AM EDT [facility] RBC 3.50(L) 4.50 - 5.50 M/mcL LAB HEMETOLOGY METHOD 02/08/2025 6:38 AM EDT [facility] Hemoglobin 11.9(L) 13.5 - 17.5 g/dL LAB HEMETOLOGY METHOD 02/08/2025 6:38 AM EDT [facility] Hematocrit 33.7(L) 42.0 - 54.0 % LAB HEMETOLOGY METHOD 02/08/2025 6:38 AM EDT [facility] MCV 95.7 79.0 - 98.0 FL LAB HEMETOLOGY METHOD 02/08/2025 6:38 AM EDT [facility] MCH 33.8(H) 27.0 - 32.0 pcg LAB HEMETOLOGY METHOD 02/08/2025 6:38 AM EDT [facility] MCHC 35.3 32.0 - 37.0 g/dL LAB HEMETOLOGY METHOD 02/08/2025 6:38 AM EDT [facility] RDW 11.2 11.0 - 15.0 % LAB HEMETOLOGY METHOD 02/08/2025 6:38 AM EDT [facility] Platelets 285 130 - 400 K/mcL LAB HEMETOLOGY METHOD 02/08/2025 6:38 AM EDT [facility] MPV 10.0 7.0 - 11.0 FL LAB HEMETOLOGY METHOD 02/08/2025 6:38 AM EDT [facility] NRBC 0.0 <1.0 % LAB HEMETOLOGY METHOD 02/08/2025 6:38 AM EDT [facility] NRBC Absolute 0.00 <0.10 K/mcL LAB HEMETOLOGY METHOD 02/08/2025 6:38 AM EDT [facility] Blood Venous blood specimen / Unknown Venipuncture / Unknown 02/08/2025 5:30 AM EDT 02/08/2025 6:21 AM EDT us Rosario Lees MD LAB BLOOD ORDERABLES Final Resu lt Performing Organization Address [facility]/ZIP Co de Phone Number [facility] [address] [place] [address], [place] [phone] * (ABNORMAL) Activated Partial Thromboplastin Time - STAT (02/07/2025 4:40 PM EDT) aPTT 139.1(HH) 24.1 - 39.3 sec LAB COAGULATION METHOD 02/07/2025 5:24 PM EDT [facility] Blood Venous blood specimen / Unknown Venipuncture / Unknown 02/07/2025 4:40 PM EDT 02/07/2025 4:51 PM EDT us Rosario Lees MD LAB BLOOD ORDERABLES Final Resu lt [facility] [address] [place] [address], [place] [phone] * Anti-Xa - Every 6 Hours (02/07/2025 12:03 PM EDT) Heparin Anti-Xa 0.68 0.30 - 0.70 I Unit/mL LAB COAGULATION METHOD 02/07/2025 12:25 PM EDT [facility] Blood Venous blood specimen / Unknown Venipuncture / Unknown 02/07/2025 12:03 PM EDT 02/07/2025 12:11 PM EDT [facility]ative [facility] ([facility]) [facility] - 02/07/2025 12:25 PM EDT Therapeutic range listed is for Unfractionated Heparin. LMW Heparin therapeutic range: 0.50-1.20 IU/mL us Naeem Daniels MD LAB BLOOD ORDERABLES Final Res ult [facility] ([facility]) [facility] [address] [place] [address], [place] [phone] * (ABNORMAL) TRANSTHORACIC ECHOCARDIOGRAM (TTE) COMPLETE W/ CONTRAST (02/07/2025 10:37 AM EDT) Left Atrium Minor [place] 6.0 cm CV PACS Left Atrium Major [place] 6.1 cm CV PACS LA Area Sys (A2C) 21 cm2 CV PACS LA Area Sys (A4C) 26 cm2 CV PACS LA Volume (BP) 41 mL CV PACS RA Area 19.0 cm2 CV PACS RA 2D Volume 58 mL CV PACS AV Mean Gradient 5 mmHg CV PACS Ao VTI 60.1 cm CV PACS AV Peak Fab 2.8 m/s CV PACS AV Peak Gradient 9 mmHg CV PACS AV Area Continuity Equation 1.5 cm2 CV PACS AV Area Peak Velocity 2.4 cm2 CV PACS Ascending Aorta 3.4 cm CV PACS IVC Proximal 1.7 cm CV PACS IVC Proximal 0.4 cm CV PACS IVSD 0.9 0.6 - 1.0 cm CV PACS LVIDD 5.2 4.2 - 5.8 cm CV PACS LVIDS 2.9 2.5 - 4.0 cm CV PACS LVOT Diameter 2.0 cm CV PACS LVOT Mean Fab 0.9 m/s CV PACS LVOT Mean Grad 3 mmHg CV PACS LVOT Peak VTI 28.1 cm CV PACS LVOT Peak Fab 1.3 m/s CV PACS LVOT Peak Gradient 6 mmHg CV PACS LVPWD 0.9 0.6 - 1.0 cm CV PACS MV E' Tissue Velocity Lateral 6 cm/s CV PACS MV E' Tissue Velocity Septal 7 cm/s CV PACS LVOT Area 3.1 cm2 CV PACS LVOT Stroke Volume 88 mL CV PACS E Wave Deceleration Time 141 119 - 242 ms CV PACS MV Peak A Fab 1.40 m/s CV PACS MV Peak E Fab 0.80 m/s CV PACS PV Acceleration Time 120 ms CV PACS PV Acceleration Time 120 ms CV PACS RV Diastolic Basal Dimension 4.2(A) 2.5 - 4.1 cm CV PACS RV S' 18 cm/s CV PACS TAPSE 20 mm CV PACS E/E' Ratio Septal 11 CV PACS E/E' Ratio Averaged 12 CV PACS LVOT Stroke Index 43 mL/m2 CV PACS Relative Wall Thickness ratio 0.35 0.24 - 0.42 CV PACS LVOT:AV VTI Index 0.47 CV PACS FS 44 % CV PACS LV Mass 2D 169 96 - 200 g CV PACS Ascending Aorta Index 1.67 cm/m2 CV PACS LVOT flow 283 mL/s CV PACS RA 2D Volume Index 29 18 - 32 mL/m2 CV PACS MOLLY Index (VTI) 0.72 cm2/m2 CV PACS MOLLY Index (Pk Fab) 1.18 cm2/m2 CV PACS LVIDD Index 2.56 cm/m2 CV PACS LVIDS Index 1.43 cm/m2 CV PACS AV Velocity Ratio 0.46 CV PACS E/A Ratio 0.6(A) 0.8 - 2.0 CV PACS E/E' Ratio Lateral 13 CV PACS LA Volume Index (BP) 20 mL/m2 CV PACS LV Mass Index 2D 83 50 - 102 g/m2 CV PACS MV Deceleration [place] 5.6 m/s2 CV PACS MV PHT 41 ms CV PACS MV Mean Gradient 3 mmHg CV PACS MV VTI 24.8 cm CV PACS Mitral Valve Max Velocity 1.4 m/s CV PACS MV Peak Gradient 8 mmHg CV PACS MV Area PHT 5.4 cm2 CV PACS MV Area Continuity Equation 3.6 cm2 CV PACS TR Peak Velocity 3.10 m/s CV PACS TR Peak Gradient 39 mmHg CV PACS MV VTI:LVOT VTI ratio 0.9 CV PACS BSA 2.12 m2 CV PACS Right Ventricular Peak Systolic Pressure 41 mmHg CV PACS Est. RA Pressure 3 mmHg CV PACS RV Free Wall Peak S' 18 cm/s CV PACS RA Major [place] 5.3 cm CV PACS RA Major [place] Index 2.6 2.1 - 2.7 cm/m2 CV PACS AV Area 2D 1.4 cm2 CV PACS MOLLY Index (2D) 0.69 cm2/m2 CV PACS Inferior Vena Cava Diameter At Inspiration 0.4 cm CV PACS IVC Inspiration Index 0.20 cm/m2 CV PACS Inferior Vena Cava Diameter At Expiration 1.6 cm CV PACS IVC Expiration Index 0.79 cm/m2 CV PACS AV Area Index 0.7 CV PACS Aortic Root 3.2 cm CV PACS Aortic Root Index 1.58 cm/m2 CV PACS Anatomical Region Laterality Modality Ultrasound Narrative 02/07/2025 11:16 AM EDT Left ventricle cavity size is normal. Left ventricular systolic function is in the normal range with an ejection fraction of 55-60%. No regional LV wall motion abnormalities noted. Right Ventricle: Enlarged right ventricular size. Systolic function is normal. RV S' 18 cm/sec. Normal TAPSE (> 17 mm), measuring 20 mm. Tricuspid Valve: There is mild regurgitation. The right ventricular systolic pressure is mildly elevated. The RVSP is estimated at 41 mmHg. Left Ventricle Left ventricle cavity size is normal. Wall thickness is normal. Systolic function is normal with an ejection fraction of 55-60%. There are no regional LV wall motion abnormalities. E-A reversal consistent with mild diastolic relaxation abnormality. Right Ventricle Enlarged right ventricular size. Systolic function is normal. RV S' 18 cm/sec. Normal TAPSE (> 17 mm), measuring 20 mm. Left Atrium Left atrium cavity size is normal. Right Atrium Right atrium cavity is normal. There is a prominent Eustachian valve. IVC/SVC RA pressures is estimated to be 3 mmHg (IVC diameter <21 mm and decreases >50% during inspiration). Mitral Valve The leaflets are thickened. There is moderate annular calcification. There is calcification of the anterior leaflet subvalvular apparatus. There is calcification of the posterior leaflet subvalvular apparatus. There is trace regurgitation. There is no evidence of mitral valve stenosis. Tricuspid Valve Tricuspid valve structure is normal. There is mild regurgitation. There is no evidence of tricuspid valve stenosis. The right ventricular systolic pressure is mildly elevated. The RVSP is estimated at 41 mmHg. Aortic Valve The aortic valve is trileaflet. Thickened aortic valve leaflets. There is no regurgitation or stenosis. Pulmonic Valve The pulmonic valve was not well visualized. No significant pulmonic valve regurgitation. There is no evidence of pulmonic valve stenosis. Ascending Aorta The aorta appears normal in size. Pericardium There is an anterior fat pad. There is no pericardial effusion. Study Details Overall the study quality was technically difficult. Definity contrast was given to enhance imaging. Study was difficult due to: procedure performed with the patient in a supine position. Rosario Lees MD CV ECHO PROCEDURES Final Result * (ABNORMAL) Anti-Xa - Every 6 Hours (02/07/2025 6:31 AM EDT) [facility] Heparin Anti-Xa 0.29(L) 0.30 - 0.70 I Unit/mL LAB COAGULATION METHOD 02/07/2025 7:49 AM EDT [facility] Blood Venous blood specimen / Unknown Venipuncture / Unknown 02/07/2025 6:31 AM EDT 02/07/2025 7:15 AM EDT Narrative [facility] - 02/07/2025 7:49 AM EDT Therapeutic range listed is for Unfractionated Heparin. LMW Heparin therapeutic range: 0.50-1.20 IU/mL Naeem Daniels MD LAB BLOOD ORDERABLES Final Res ult [facility] [address] [place] [address], * Vitamin B12 (02/07/2025 6:31 AM EDT) [facility] Vitamin B-12 345 250 - 900 pcg/mL LAB CHEMISTRY METHOD 02/07/2025 8:34 AM EDT [facility] Blood Venous blood specimen / Unknown Venipuncture / Unknown 02/07/2025 6:31 AM EDT 02/07/2025 7:14 AM EDT us Rosario Lees MD LAB BLOOD ORDERABLES Final Resu lt Performing Organization Address [facility] Co de Phone Number [facility] [address] [place] [address], * Prostate specific antigen diagnostic (02/07/2025 6:31 AM EDT) Pathologist [facility] PSA 3.83 0.00 - 4.00 ng/mL LAB CHEMISTRY METHOD 02/07/2025 9:26 AM EDT [facility] Blood Venous blood specimen / Unknown Venipuncture / Unknown 02/07/2025 6:31 AM EDT 02/07/2025 7:14 AM EDT Narrative [facility] - 02/07/2025 9:26 AM EDT The Siemens Advia Centaur Chemiluminescent Immunoassay is used. Results obtained with different assay methods or kits cannot be used interchangeably. Results cannot be interpreted as absolute evidence of the presence or absence of malignant disease. us Rosario Lees MD LAB BLOOD ORDERABLES Final Resu lt Performing Organization Address [facility] Co de Phone Number [facility] [address] [place] [address], * Troponin I high sensitivity (02/07/2025 6:31 AM EDT) [facility] High Sensitivity Troponin I 22 <=79 ng/L LAB CHEMISTRY METHOD 02/07/2025 7:49 AM EDT [facility] Blood Venous blood specimen / Unknown Venipuncture / Unknown 02/07/2025 6:31 AM EDT 02/07/2025 7:14 AM EDT Narrative [facility] - 02/07/2025 7:49 AM EDT High levels of biotin in samples may falsely decrease hsTroponin values. Use caution when interpreting hsTroponin results in patients taking biotin who exhibit renal impairment (eGFR <60) or in patients taking more than 20 mg/day of biotin. us Rosario Lees MD LAB BLOOD ORDERABLES Final Resu lt Performing Organization Address [facility] Co de Phone Number [facility] [address] [place] [address], * (ABNORMAL) D-Dimer (02/07/2025 6:31 AM EDT) D-Dimer, Quant (D-DU) 2,553(H) <=230 ng/mL DDU LAB COAGULATION METHOD 02/07/2025 7:49 AM EDT [facility] Blood Venous blood specimen / Unknown Venipuncture / Unknown 02/07/2025 6:31 AM EDT 02/07/2025 7:15 AM EDT Narrative [facility] - 02/07/2025 7:49 AM EDT D-Dimer <230 ng/mL (D-Dimer units) is the threshold for exclusion of DVT/PE. D-Dimer may be elevated in: Critically ill, severely infected, trauma patients, DIC, acute CVA, acute RI, unstable angina, AF, old age, , and smoking. D-Dimer may be decreased with: Initiation of heparin therapy and oral anticoagulants. us Rosario Lees MD LAB BLOOD ORDERABLES Final Resu lt Performing Organization Address [facility] Co de Phone Number [facility] [address] [place] [address], [place] [phone] * Thyroid stimulating hormone with reflex to free t4 and free t3 (02/07/2025 6:31 AM EDT) TSH 1.11 0.40 - 4.00 mcIU/mL LAB CHEMISTRY METHOD 02/07/2025 9:41 AM EDT [facility] Blood Venous blood specimen / Unknown Venipuncture / Unknown 02/07/2025 6:31 AM EDT 02/07/2025 7:14 AM EDT us Rosario Lees MD LAB BLOOD ORDERABLES Final Resu lt Performing Organization Address [facility] Co de Phone Number [facility] [address] [place] [address], [place] [phone] * Hemoglobin A1c (02/07/2025 6:31 AM EDT) Pathologist [facility] Hemoglobin A1C 4.5 <6.5 % LAB CHEMISTRY METHOD 02/07/2025 9:23 AM EDT [facility] Mean Bld Glu Estim. 82 mg/dL LAB CHEMISTRY METHOD 02/07/2025 9:23 AM EDT [facility] Blood Venous blood specimen / Unknown Venipuncture / Unknown 02/07/2025 6:31 AM EDT 02/07/2025 7:15 AM EDT us Rosario Lees MD LAB BLOOD ORDERABLES Final Resu lt Performing Organization Address [facility] de Phone Number [facility] [address] [place] [address], [place] [phone] * (ABNORMAL) Prothrombin time with INR (02/07/2025 6:31 AM EDT) Pathologist [facility] Protime 16.0(H) 10.6 - 13.9 sec LAB COAGULATION METHOD 02/07/2025 7:49 AM EDT [facility] INR 1.3 LAB COAGULATION METHOD 02/07/2025 7:49 AM EDT [facility] Blood Venous blood specimen / Unknown Venipuncture / Unknown 02/07/2025 6:31 AM EDT 02/07/2025 7:15 AM EDT us Rosario Lees MD LAB BLOOD ORDERABLES Final Resu lt [facility] [address] [place] [address], * (ABNORMAL) Comprehensive metabolic panel (02/07/2025 6:31 AM EDT) Sodium 138 133 - 145 mmol/L LAB CHEMISTRY METHOD 02/07/2025 8:11 AM [facility] Potassium 3.6 3.5 - 5.5 mmol/L LAB CHEMISTRY METHOD 02/07/2025 8:11 AM [facility] Chloride 105 96 - 110 mmol/L LAB CHEMISTRY METHOD 02/07/2025 8:11 AM [facility] CO2 27 21 - 32 mmol/L LAB CHEMISTRY METHOD 02/07/2025 8:11 AM [facility] Anion Gap 6 3 - 11 LAB CHEMISTRY METHOD 02/07/2025 8:11 AM [facility] Glucose 99 70 - 100 mg/dL LAB CHEMISTRY METHOD 02/07/2025 8:11 AM [facility] BUN 8 5 - 25 mg/dL LAB CHEMISTRY METHOD 02/07/2025 8:11 AM [facility] Creatinine 0.55(L) 0.70 - 1.30 mg/dL LAB CHEMISTRY METHOD 02/07/2025 8:11 AM [facility] eGFR 111 >=60 mL/min/1. 73m2 LAB CHEMISTRY METHOD 02/07/2025 8:11 AM [facility] Comment:Calculation based on the Chronic Kidney Disease Epidemiology Collaboration (CKD-EPI) equation refit without adjustment for race. BUN/Creatinine Ratio 14.5 LAB CHEMISTRY METHOD 02/07/2025 8:11 AM [facility] Calcium 8.7 8.5 - 10.5 mg/dL LAB CHEMISTRY METHOD 02/07/2025 8:11 AM EDT [facility] AST (SGOT) 16 10 - 42 unit/L LAB CHEMISTRY METHOD 02/07/2025 8:11 AM T [facility] ALT (SGPT) 12 10 - 60 unit/L LAB CHEMISTRY METHOD 02/07/2025 8:11 AM [facility] Alkaline Phosphatase 84 42 - 121 unit/L LAB CHEMISTRY METHOD 02/07/2025 8:11 AM EDT [facility] Total Protein 6.2 6.0 - 8.0 g/dL LAB CHEMISTRY METHOD 02/07/2025 8:11 AM [facility] Albumin 2.8(L) 3.2 - 5.0 g/dL LAB CHEMISTRY METHOD 02/07/2025 8:11 AM [facility] Total Bilirubin 0.8 0.0 - 1.4 mg/dL LAB CHEMISTRY METHOD 02/07/2025 8:11 AM [facility] Blood Venous blood specimen / Unknown Venipuncture / Unknown 02/07/2025 6:31 AM EDT 02/07/2025 7:14 AM EDT us Rosario Lees MD LAB BLOOD ORDERABLES Final Resu lt [facility] [address] [place] [address], * (ABNORMAL) Magnesium (02/07/2025 6:31 AM EDT) Magnesium 1.8(L) 1.9 - 2.6 mg/dL LAB CHEMISTRY METHOD 02/07/2025 8:11 AM EDT [facility] Blood Venous blood specimen / Unknown Venipuncture / Unknown 02/07/2025 6:31 AM EDT 02/07/2025 7:14 AM EDT us Rosario Lees MD LAB BLOOD ORDERABLES Final Resu lt Performing Organization Address City/[facility]/ZIP Co de Phone Number [facility] [address] [place] [address], [place] [phone] * Phosphorus (02/07/2025 6:31 AM EDT) Phosphorus 3.8 2.5 - 4.5 mg/dL LAB CHEMISTRY METHOD 02/07/2025 8:11 AM EDT [facility] Blood Venous blood specimen / Unknown Venipuncture / Unknown 02/07/2025 6:31 AM EDT 02/07/2025 7:14 AM EDT us Rosario Lees MD LAB BLOOD ORDERABLES Final Resu lt Performing Organization Address [facility]/ZIP Co de Phone Number [facility] [address] [place] [address], [place] [phone] * (ABNORMAL) Complete blood count (02/07/2025 6:31 AM EDT) WBC 12.4(H) 4.8 - 10.8 K/mcL LAB HEMETOLOGY METHOD 02/07/2025 7:30 AM EDT [facility] RBC 3.60(L) 4.50 - 5.50 M/mcL LAB HEMETOLOGY METHOD 02/07/2025 7:30 AM EDT [facility] Hemoglobin 11.9(L) 13.5 - 17.5 g/dL LAB HEMETOLOGY METHOD 02/07/2025 7:30 AM EDT [facility] Hematocrit 33.9(L) 42.0 - 54.0 % LAB HEMETOLOGY METHOD 02/07/2025 7:30 AM EDT [facility] MCV 95.2 79.0 - 98.0 FL LAB HEMETOLOGY METHOD 02/07/2025 7:30 AM EDT [facility] MCH 33.4(H) 27.0 - 32.0 pcg LAB HEMETOLOGY METHOD 02/07/2025 7:30 AM EDT [facility] MCHC 35.1 32.0 - 37.0 g/dL LAB HEMETOLOGY METHOD 02/07/2025 7:30 AM EDT [facility] RDW 11.0 11.0 - 15.0 % LAB HEMETOLOGY METHOD 02/07/2025 7:30 AM EDT [facility] Platelets 252 130 - 400 K/mcL LAB HEMETOLOGY METHOD 02/07/2025 7:30 AM EDT [facility] MPV 10.1 7.0 - 11.0 FL LAB HEMETOLOGY METHOD 02/07/2025 7:30 AM EDT [facility] NRBC 0.0 <1.0 % LAB HEMETOLOGY METHOD 02/07/2025 7:30 AM EDT [facility] NRBC Absolute 0.00 <0.10 K/mcL LAB HEMETOLOGY METHOD 02/07/2025 7:30 AM EDT [facility] Blood Venous blood specimen / Unknown Venipuncture / Unknown 02/07/2025 6:31 AM EDT 02/07/2025 7:15 AM EDT Rosario Lees MD LAB BLOOD ORDERABLES Final Resu lt [facility] [address] [place] [address], * Respiratory virus panel molecular study (02/07/2025 12:37 AM EDT) Adenovirus Detection by PCR Not Detected Not Detected LAB MICROBIOLOGY METHOD 02/07/2025 1:47 AM EDT [facility] Influenza A PCR Not Detected Not Detected LAB MICROBIOLOGY METHOD 02/07/2025 1:47 AM EDT [facility] Influenza B PCR Not Detected Not Detected LAB MICROBIOLOGY METHOD 02/07/2025 1:47 AM EDT [facility] Coronavirus 229E Not Detected Not Detected LAB MICROBIOLOGY METHOD 02/07/2025 1:47 AM EDT [facility] Coronavirus HKU1 Not Detected Not Detected LAB MICROBIOLOGY METHOD 02/07/2025 1:47 AM EDT [facility] Coronavirus OC43 Not Detected Not Detected LAB MICROBIOLOGY METHOD 02/07/2025 1:47 AM EDT [facility] Coronavirus NL63 Not Detected Not Detected LAB MICROBIOLOGY METHOD 02/07/2025 1:47 AM EDT [facility] Parainfluenza Virus 1 Not Detected Not Detected LAB MICROBIOLOGY METHOD 02/07/2025 1:47 AM EDT [facility] Parainfluenza Virus 2 Not Detected Not Detected LAB MICROBIOLOGY METHOD 02/07/2025 1:47 AM EDT [facility] Parainfluenza Virus 3 Not Detected Not Detected LAB MICROBIOLOGY METHOD 02/07/2025 1:47 AM EDT [facility] Parainfluenza Virus 4 Not Detected Not Detected LAB MICROBIOLOGY METHOD 02/07/2025 1:47 AM EDT [facility] RSV PCR Not Detected Not Detected LAB MICROBIOLOGY METHOD 02/07/2025 1:47 AM EDT [facility] Human Metapneumovirus A and B Not Detected Not Detected LAB MICROBIOLOGY METHOD 02/07/2025 1:47 AM EDT [facility] Rhinovirus/Entero virus Not Detected Not Detected LAB MICROBIOLOGY METHOD 02/07/2025 1:47 AM EDT [facility] Bordetella pertussis Not Detected Not Detected LAB MICROBIOLOGY METHOD 02/07/2025 1:47 AM EDT [facility] Bordetella parapertussis Not Detected Not Detected LAB MICROBIOLOGY METHOD 02/07/2025 1:47 AM EDT [facility] Mycoplasma pneumo by PCR Not Detected Not Detected LAB MICROBIOLOGY METHOD 02/07/2025 1:47 AM EDT [facility] Chlamydia pneumoniae Not Detected Not Detected LAB MICROBIOLOGY METHOD 02/07/2025 1:47 AM EDT [facility] SARS COV-2 Not Detected Not Detected LAB MICROBIOLOGY METHOD 02/07/2025 1:47 AM EDT [facility] Swab Nasopharyngeal structure / Unknown Non-blood Collection / Unknown 02/07/2025 12:37 AM EDT 02/07/2025 12:47 AM EDT [facility] - 02/07/2025 1:47 AM EDT Testing was performed using the [employer] Respiratory Pathogen PCR Assay. All results must be correlated with the clinical findings. Results should not be used as the sole basis for diagnosis. False Negative results may occur from the presence of sequence variants in the region targeted by the assay or the presence of inhibitors. Results may be affected by concurrent antiviral/antimicrobial therapy or levels of organisms that are below the limit of detection. Rosario Lees MD LAB [facility]BIOLOGY - [facility] Final Result [facility] [address] [place] [address], * Anti-Xa - Every 6 Hours (02/07/2025 12:08 AM EDT) Heparin Anti-Xa 0.55 0.30 - 0.70 I Unit/mL LAB COAGULATION METHOD 02/07/2025 12:30 AM EDT [facility] Blood Venous blood specimen / Unknown Venipuncture / Unknown 02/07/2025 12:08 AM EDT 02/07/2025 12:20 AM EDT [facility] - 02/07/2025 12:30 AM EDT Therapeutic range listed is for Unfractionated Heparin. LMW Heparin therapeutic range: 0.50-1.20 IU/mL Naeem Daniels MD LAB BLOOD ORDERABLES Final Res ult Performing Organization Address City/[facility]/ZIP Co de Phone Number [facility] [address] [place] [address], [place] [phone] * (ABNORMAL) Anti-Xa - Every 6 Hours (02/06/2025 6:46 PM EDT) Heparin Anti-Xa 0.88(H) 0.30 - 0.70 I Unit/mL LAB COAGULATION METHOD 02/06/2025 7:16 PM EDT [facility] Blood Venous blood specimen / Unknown Venipuncture / Unknown 02/06/2025 6:46 PM EDT 02/06/2025 7:02 PM EDT Narrative [facility] - 02/06/2025 7:16 PM EDT Therapeutic range listed is for Unfractionated Heparin. LMW Heparin therapeutic range: 0.50-1.20 IU/mL Naeem Daniels MD LAB BLOOD ORDERABLES Final Res ult Performing Organization Address City/[facility]/ZIP Co de Phone Number [facility] [address] [place] [address], [place] [phone] * Vascular US duplex lower extremity venous bilateral (02/06/2025 6:15 PM EDT) Anatomical Region Laterality Modality Vascular, Abdomen Ultrasound 02/06/2025 6:41 PM EDT Addenda Addendum by Cameron Cook MD on 02/06/2025 6:45 PM EDT ADDENDUM: This report was discussed with Enid Hill RN on Feb 06, 2025 18:45:00 EDT. This document has been electronically signed by: Maggy Villalta on 02/06/2025 18:45:59 Impressions 02/06/2025 6:41 PM EDT Positive for left lower extremity deep vein thrombosis. Negative for right lower extremity deep vein thrombosis. This document has been electronically signed by: Cameron Cook MD on 02/06/2025 18:41:00 Narrative 02/06/2025 6:41 PM EDT INDICATION: pain in extremities Venous duplex ultrasound bilateral lower extremity Comparison: US - VAS US DUPLEX LOW EXT VENOUS BILAT - 02/04/25 15:55 EDT Findings: Occlusive deep vein thrombosis noted in the left peroneal vein The visualized remaining deep veins are fully compressible with normal Doppler color flow and spectral tracings. No popliteal cyst. Procedure Note Cameron Cook MD - 02/06/2025 INDICATION: pain in extremities Venous duplex ultrasound bilateral lower extremity Comparison: US - VAS US DUPLEX LOW EXT VENOUS BILAT - 02/04/25 15:55 EDT Findings: Occlusive deep vein thrombosis noted in the left peroneal vein The visualized remaining deep veins are fully compressible with normal Doppler color flow and spectral tracings. No popliteal cyst. IMPRESSION: Positive for left lower extremity deep vein thrombosis. Negative for right lower extremity deep vein thrombosis. This document has been electronically signed by: Cameron Cook MD on 02/06/2025 18:41:00 Rosario Lees MD CV VASCULAR PROCEDURES Edited R esult - Final * (ABNORMAL) Anti-Xa - Every 6 Hours (02/06/2025 12:39 PM EDT) Heparin Anti-Xa 0.19(L) 0.30 - 0.70 I Unit/mL LAB COAGULATION METHOD 02/06/2025 1:26 PM EDT [facility] Blood Venous blood specimen / Unknown Venipuncture / Unknown 02/06/2025 12:39 PM EDT 02/06/2025 12:45 PM EDT Narrative [facility] - 02/06/2025 1:26 PM EDT Therapeutic range listed is for Unfractionated Heparin. LMW Heparin therapeutic range: 0.50-1.20 IU/mL us Naeem Daniels MD LAB BLOOD ORDERABLES Final Res ult [facility] [address] [place] [address], * NM Lung Perfusion Imaging (02/06/2025 10:41 AM EDT) Anatomical Region Laterality Modality Body Nuclear Medicine 02/06/2025 11:3 9 AM EDT Impressions 02/06/2025 11:50 AM EDT High probability for pulmonary emboli. With significant interval improvement of renal function considers CTPA for further evaluation. -------- FINAL REPORT -------- Dictated By: Tyrone Shoemaker Dictated Date: 02/06/2025 11:39 ET Assigned Physician: Tyrone Shoemaker Reviewed and Electronically Signed By: Tyrone Shoemaker Signed Date: 02/06/2025 11:50 ET Workstation ID: [id number] Transcribed By: Self Edit Transcribed Date: 02/06/2025 11:39 ET Narrative 02/06/2025 11:50 AM EDT INDICATION: Shortness of breath FINDINGS: Perfusion only scan was obtained. 5.2 mCi of technetium 99 M MAA intravenously for the perfusion portion with imaging obtained in different positions including anterior, posterior, SERBIAN, HURLEY, LPO and HURLEY views. Relevant studies: Chest CT from February 04, 2025 reviewed Perfusion portion of examination demonstrates small to moderate segmental defect within the right upper lobe. On the left side large defect noted within the left upper lobe within the lingular segment with moderate defect noted within the superior segment. Procedure Note Tyrone Shoemaker MD - 02/06/2025 INDICATION: Shortness of breath FINDINGS: Perfusion only scan was obtained. 5.2 mCi of technetium 99 M MAA intravenously for the perfusion portionwith imaging obtained in different positions including anterior,posterior, SERBIAN, HURLEY, LPO and HURLEY views. Relevant studies: Chest CT from February 04, 2025 reviewed Perfusion portion of examination demonstrates small to moderate segmentaldefect within the right upper lobe. On the left side large defect notedwithin the left upper lobe within the lingular segment with moderatedefect noted within the superior segment. IMPRESSION: High probability for pulmonary emboli. With significant interval improvement of renal function considers CTPA forfurther evaluation. -------- FINAL REPORT -------- Dictated By: Tyrone Shoemaker Dictated Date: 02/06/2025 11:39 ET Assigned Physician: Tyrone Shoemaker Reviewed and Electronically Signed By: Tyrone Shoemaker Signed Date: 02/06/2025 11:50 ET Workstation ID: [id number] Transcribed By: Self Edit Transcribed Date: 02/06/2025 11:39 ET Naeem Daniels MD IM NM PROCEDURES Final Result * (ABNORMAL) CBC auto differential (02/06/2025 6:12 AM EDT) WBC 12.0(H) 4.8 - 10.8 K/mcL LAB HEMETOLOGY METHOD 02/06/2025 9:48 AM EDT [facility] RBC 3.70(L) 4.50 - 5.50 M/mcL LAB HEMETOLOGY METHOD 02/06/2025 9:48 AM EDT [facility] Hemoglobin 12.4(L) 13.5 - 17.5 g/dL LAB HEMETOLOGY METHOD 02/06/2025 9:[facility] Hematocrit 36.0(L) 42.0 - 54.0 % LAB HEMETOLOGY METHOD 02/06/2025 9:48 [facility] MCV 98.6(H) 79.0 - 98.0 FL LAB HEMETOLOGY METHOD 02/06/2025 9:48 AM EDT [facility] MCH 34.0(H) 27.0 - 32.0 pcg LAB HEMETOLOGY METHOD 02/06/2025 9:48 [facility] MCHC 34.4 32.0 - 37.0 g/dL LAB HEMETOLOGY METHOD 02/06/2025 9:48 [facility] RDW 11.2 11.0 - 15.0 % LAB HEMETOLOGY METHOD 02/06/2025 9:48 AM [facility] Platelets 255 130 - 400 K/mcL LAB HEMETOLOGY METHOD 02/06/2025 9:48 AM [facility] MPV 10.9 7.0 - 11.0 FL LAB HEMETOLOGY METHOD 02/06/2025 9:48 AM [facility] NRBC 0.0 <1.0 % LAB HEMETOLOGY METHOD 02/06/2025 9:48 AM [facility] NRBC Absolute 0.00 <0.10 K/mcL LAB HEMETOLOGY METHOD 02/06/2025 9:48 AM [facility] Neutrophils Relative 67.1 % LAB HEMETOLOGY METHOD 02/06/2025 9:48 AM [facility] Lymphocytes Relative 18.7 % LAB HEMETOLOGY METHOD 02/06/2025 9:48 AM [facility] Monocytes Relative 9.6 % LAB HEMETOLOGY METHOD 02/06/2025 9:48 AM [facility] Eosinophils Relative 2.2 % LAB HEMETOLOGY METHOD 02/06/2025 9:48 AM [facility] Basophils Relative 0.4 % LAB HEMETOLOGY METHOD 02/06/2025 9:48 AM [facility] Immature Granulocytes Relative 2.0 % LAB HEMETOLOGY METHOD 02/06/2025 9:48 AM [facility] Neutrophils Absolute 8.09(H) 1.50 - 7.00 K/mcL LAB HEMETOLOGY METHOD 02/06/2025 9:48 AM [facility] Lymphocytes Absolute 2.25 1.00 - 5.00 K/mcL LAB HEMETOLOGY METHOD 02/06/2025 9:48 AM [facility] Monocytes Absolute 1.15(H) 0.20 - 1.00 K/mcL LAB HEMETOLOGY METHOD 02/06/2025 9:48 AM EDT [facility] Eosinophils Absolute 0.26 0.00 - 0.50 K/[facility] LAB HEMETOLOGY METHOD 02/06/2025 9:48 AM EDT [facility] Basophils Absolute 0.05 0.00 - 0.20 K/[facility] LAB HEMETOLOGY METHOD 02/06/2025 9:48 AM EDT [facility] Immature Granulocytes Absolute 0.24(H) 0.00 - 0.03 K/[facility] LAB HEMETOLOGY METHOD 02/06/2025 9:48 AM EDT [facility] Blood Venous blood specimen / Unknown Venipuncture / Unknown 02/06/2025 6:12 AM EDT 02/06/2025 6:20 AM EDT us Rosario Lees MD LAB BLOOD ORDERABLES Final Resu lt Performing Organization Address City/[facility]/ZIP Co de Phone Number [facility] [address] [place] [address], [place] [phone] * (ABNORMAL) Creatine kinase (02/06/2025 6:12 AM EDT) Total CK 14(L) 22 - 269 unit/L LAB CHEMISTRY METHOD 02/06/2025 10:33 AM EDT [facility] Comment:Results verified by repeat testing Blood Venous blood specimen / Unknown Venipuncture / Unknown 02/06/2025 6:12 AM EDT 02/06/2025 6:20 AM EDT us Rosario Lees MD LAB BLOOD ORDERABLES Final Resu lt [facility] [address] [place] [address], [place] [phone] * (ABNORMAL) D-Dimer (02/06/2025 6:12 AM EDT) D-Dimer, Quant (D-DU) 2,602(H) <=230 ng/mL DDU LAB COAGULATION METHOD 02/06/2025 9:57 AM EDT [facility] Blood Venous blood specimen / Unknown Venipuncture / Unknown 02/06/2025 6:12 AM EDT 02/06/2025 6:20 AM EDT Narrative [facility] - 02/06/2025 9:57 AM EDT D-Dimer <230 ng/mL (D-Dimer units) is the threshold for exclusion of DVT/PE. D-Dimer may be elevated in: Critically ill, severely infected, trauma patients, DIC, acute CVA, acute RI, unstable angina, AF, old age, , and smoking. D-Dimer may be decreased with: Initiation of heparin therapy and oral anticoagulants. us Rosario Lees MD LAB BLOOD ORDERABLES Final Resu lt [facility] [address] [place] [address], [place] [phone] * (ABNORMAL) C-reactive protein (02/06/2025 6:12 AM EDT) Pathologist [facility] C-Reactive Protein 10.30(H) <=0.50 mg/dL LAB CHEMISTRY METHOD 02/06/2025 10:18 AM EDT [facility] Blood Venous blood specimen / Unknown Venipuncture / Unknown 02/06/2025 6:12 AM EDT 02/06/2025 6:20 AM EDT us Rosario Lees MD LAB BLOOD ORDERABLES Final Resu lt [facility] [address] [place] [address], [place] [phone] * (ABNORMAL) Basic metabolic panel (02/06/2025 6:12 AM EDT) Sodium 140 133 - 145 mmol/L LAB CHEMISTRY METHOD 02/06/2025 10:33 AM [facility] Potassium 3.7 3.5 - 5.5 mmol/L LAB CHEMISTRY METHOD 02/06/2025 10:33 AM [facility] Chloride 106 96 - 110 mmol/L LAB CHEMISTRY METHOD 02/06/2025 10:33 AM [facility] CO2 27 21 - 32 mmol/L LAB CHEMISTRY METHOD 02/06/2025 10:33 AM [facility] Anion Gap 7 3 - 11 LAB CHEMISTRY METHOD 02/06/2025 10:33 AM [facility] Glucose 94 70 - 100 mg/dL LAB CHEMISTRY METHOD 02/06/2025 10:33 AM [facility] BUN 13 5 - 25 mg/dL LAB CHEMISTRY METHOD 02/06/2025 10:33 AM [facility] Comment:Results verified by repeat testing Creatinine 0.52(L) 0.70 - 1.30 mg/dL LAB CHEMISTRY METHOD 02/06/2025 10:33 AM [facility] eGFR 113 >=60 mL/min/1. 73m2 LAB CHEMISTRY METHOD 02/06/2025 10:33 AM [facility] Comment:Calculation based on the Chronic Kidney Disease Epidemiology Collaboration (CKD-EPI) equation refit without adjustment for race. BUN/Creatinine Ratio 25.0 LAB CHEMISTRY METHOD 02/06/2025 10:33 AM [facility] Calcium 9.1 8.5 - 10.5 mg/dL LAB CHEMISTRY METHOD 02/06/2025 10:33 AM [facility] Blood Venous blood specimen / Unknown Venipuncture / Unknown 02/06/2025 6:12 AM EDT 02/06/2025 6:20 AM EDT us Rosario Diggs Nasser MD LAB BLOOD ORDERABLES Final Resu lt Performing Organization Address [facility] Co de Phone Number [facility] [address] [place] [address], [place] [phone] * Lavender tube (02/06/2025 6:12 AM EDT) Extra Tube Hold for add-ons. 02/06/2025 8:01 AM EDT [facility] Comment:Auto resulted. Blood Venous blood specimen / Unknown Venipuncture / Unknown 02/06/2025 6:12 AM EDT 02/06/2025 6:20 AM EDT us Rosario Lees MD LAB BLOOD ORDERABLES Final Resu lt Performing Organization Address [facility] Co de Phone Number [facility] [address] [place] [address], [place] [phone] * SST tube (02/06/2025 6:12 AM EDT) Extra Tube Hold for add-ons. 02/06/2025 8:01 AM EDT [facility] Comment:Auto resulted. Blood Venous blood specimen / Unknown Venipuncture / Unknown 02/06/2025 6:12 AM EDT 02/06/2025 6:20 AM EDT us Rosario Lees MD LAB BLOOD ORDERABLES Final Resu lt Performing Organization Address City/[facility]/ZIP Co de Phone Number [facility] [address] [place] [address], [place] [phone] * Anti-Xa - Every 6 Hours (02/06/2025 6:12 AM EDT) Heparin Anti-Xa 0.38 0.30 - 0.70 I Unit/mL LAB COAGULATION METHOD 02/06/2025 6:43 AM EDT [facility] Blood Venous blood specimen / Unknown Venipuncture / Unknown 02/06/2025 6:12 AM EDT 02/06/2025 6:20 AM EDT Narrative [facility] - 02/06/2025 6:43 AM EDT Therapeutic range listed is for Unfractionated Heparin. LMW Heparin therapeutic range: 0.50-1.20 IU/mL Naeem Daniels MD LAB BLOOD ORDERABLES Final Res ult Performing Organization Address [facility]/ZIP Co de Phone Number [facility] [address] [place] [address], [place] [phone] * Anti-Xa - Every 6 Hours (02/06/2025 12:03 AM EDT) Heparin Anti-Xa 0.33 0.30 - 0.70 I Unit/mL LAB COAGULATION METHOD 02/06/2025 1:18 AM EDT [facility] Blood Venous blood specimen / Unknown Venipuncture / Unknown 02/06/2025 12:03 AM EDT 02/06/2025 12:08 AM EDT Narrative [facility] - 02/06/2025 1:18 AM EDT Therapeutic range listed is for Unfractionated Heparin. LMW Heparin therapeutic range: 0.50-1.20 IU/mL Naeem Daniels MD LAB BLOOD ORDERABLES Final Res ult [facility] [address] [place] [address], [place] [phone] * (ABNORMAL) Anti-Xa - Every 6 Hours (02/05/2025 6:20 PM EDT) Heparin Anti-Xa 0.25(L) 0.30 - 0.70 I Unit/mL LAB COAGULATION METHOD 02/05/2025 6:37 PM EDT [facility] Blood Venous blood specimen / Unknown Venipuncture / Unknown 02/05/2025 6:20 PM EDT 02/05/2025 6:25 PM EDT Narrative [facility] - 02/05/2025 6:37 PM EDT Therapeutic range listed is for Unfractionated Heparin. LMW Heparin therapeutic range: 0.50-1.20 IU/mL us Naeem Daniels MD LAB BLOOD ORDERABLES Final Res ult Performing Organization Address City/[facility]/ZIP Co de Phone Number [facility] [address] [place] [address], [place] [phone] * Lavender tube (02/05/2025 12:09 PM EDT) Extra Tube Hold for add-ons. 02/05/2025 2:01 PM EDT [facility] Comment:Auto resulted. Blood Venous blood specimen / Unknown 02/05/2025 12:09 PM EDT 02/05/2025 12:16 PM EDT us Richie Cerna MD LAB BLOOD ORDERABLES Final Resul t Performing Organization Address [facility]/ZIP Co de Phone Number [facility] [address] [place] [address], [place] [phone] * Potassium (02/05/2025 12:09 PM EDT) Potassium 3.8 3.5 - 5.5 mmol/L LAB CHEMISTRY METHOD 02/05/2025 12:38 PM EDT [facility] Blood Venous blood specimen / Unknown Venipuncture / Unknown 02/05/2025 12:09 PM EDT 02/05/2025 12:16 PM EDT us Richie Cerna MD LAB BLOOD ORDERABLES Final Resul t [facility] [address] [place] [address], [place] [phone] * Anti-Xa - Every 6 Hours (02/05/2025 12:09 PM EDT) [facility] Heparin Anti-Xa 0.33 0.30 - 0.70 I Unit/mL LAB COAGULATION METHOD 02/05/2025 12:26 PM EDT [facility] Blood Venous blood specimen / Unknown Venipuncture / Unknown 02/05/2025 12:09 PM EDT 02/05/2025 12:16 PM EDT Narrative [facility] - 02/05/2025 12:26 PM EDT Therapeutic range listed is for Unfractionated Heparin. LMW Heparin therapeutic range: 0.50-1.20 IU/mL Naeem Daniels MD LAB BLOOD ORDERABLES Final Res ult [facility] [address] [place] [address], [place] [phone] * (ABNORMAL) CBC auto differential (02/05/2025 5:27 AM EDT) [facility] WBC 14.0(H) 4.8 - 10.8 K/[facility] LAB HEMETOLOGY METHOD 02/05/2025 6:31 AM EDT [facility] RBC 3.60(L) 4.50 - 5.50 M/[facility] LAB HEMETOLOGY METHOD 02/05/2025 6:31 AM EDT [facility] Hemoglobin 12.3(L) 13.5 - 17.5 g/dL LAB HEMETOLOGY METHOD 02/05/2025 6:31 AM EDT [facility] Hematocrit 34.3(L) 42.0 - 54.0 % LAB HEMETOLOGY METHOD 02/05/2025 6:31 AM EDT [facility] MCV 95.0 79.0 - 98.0 FL LAB HEMETOLOGY METHOD 02/05/2025 6:31 AM [facility] MCH 34.1(H) 27.0 - 32.0 pcg LAB HEMETOLOGY METHOD 02/05/2025 6:31 AM [facility] MCHC 35.9 32.0 - 37.0 g/dL LAB HEMETOLOGY METHOD 02/05/2025 6:31 AM [facility] RDW 11.0 11.0 - 15.0 % LAB HEMETOLOGY METHOD 02/05/2025 6:31 AM [facility] Platelets 228 130 - 400 K/mcL LAB HEMETOLOGY METHOD 02/05/2025 6:31 AM [facility] MPV 10.7 7.0 - 11.0 FL LAB HEMETOLOGY METHOD 02/05/2025 6:31 AM [facility] NRBC 0.0 <1.0 % LAB HEMETOLOGY METHOD 02/05/2025 6:31 AM [facility] NRBC Absolute 0.00 <0.10 K/mcL LAB HEMETOLOGY METHOD 02/05/2025 6:31 AM [facility] Neutrophils Relative 73.9 % LAB HEMETOLOGY METHOD 02/05/2025 6:31 AM [facility] Lymphocytes Relative 15.1 % LAB HEMETOLOGY METHOD 02/05/2025 6:31 AM [facility] Monocytes Relative 8.6 % LAB HEMETOLOGY METHOD 02/05/2025 6:31 AM [facility] Eosinophils Relative 0.4 % LAB HEMETOLOGY METHOD 02/05/2025 6:31 AM [facility] Basophils Relative 0.3 % LAB HEMETOLOGY METHOD 02/05/2025 6:31 AM [facility] Immature Granulocytes Relative 1.7 % LAB HEMETOLOGY METHOD 02/05/2025 6:31 AM EDT [facility] Neutrophils Absolute 10.31(H) 1.50 - 7.00 K/[facility] HEMETOLOGY METHOD 02/05/2025 6:31 AM EDT [facility] Lymphocytes Absolute 2.10 1.00 - 5.00 K/mcL LAB HEMETOLOGY METHOD 02/05/2025 6:31 AM EDT [facility] Monocytes Absolute 1.20(H) 0.20 - 1.00 K/mcL LAB HEMETOLOGY METHOD 02/05/2025 6:31 AM EDT [facility] Eosinophils Absolute 0.06 0.00 - 0.50 K/mcL LAB HEMETOLOGY METHOD 02/05/2025 6:31 AM EDT [facility] Basophils Absolute 0.04 0.00 - 0.20 K/mcL LAB HEMETOLOGY METHOD 02/05/2025 6:31 AM EDT [facility] Immature Granulocytes Absolute 0.24(H) 0.00 - 0.03 K/mcL LAB HEMETOLOGY METHOD 02/05/2025 6:[facility] Blood Venous blood specimen / Unknown Venipuncture / Unknown 02/05/2025 5:27 AM EDT 02/05/2025 6:11 AM EDT us Naeem Daniels MD LAB BLOOD ORDERABLES Final Res ult [facility] [address] [place] [address], * Anti-Xa - Every 6 Hours (02/05/2025 5:27 AM EDT) Heparin Anti-Xa 0.40 0.30 - 0.70 I Unit/mL LAB COAGULATION METHOD 02/05/2025 6:28 AM EDT [facility] Blood Venous blood specimen / Unknown Venipuncture / Unknown 02/05/2025 5:27 AM EDT 02/05/2025 6:11 AM EDT Narrative [facility] - 02/05/2025 6:28 AM EDT Therapeutic range listed is for Unfractionated Heparin. LMW Heparin therapeutic range: 0.50-1.20 IU/mL Naeem Daniels MD LAB BLOOD ORDERABLES Final Res ult Performing Organization Address City/[facility]/ZIP Co de Phone Number [facility] [address] [place] [address], [place] [phone] * Magnesium (02/05/2025 5:27 AM EDT) Magnesium 2.2 1.9 - 2.6 mg/dL LAB CHEMISTRY METHOD 02/05/2025 7:09 AM EDT [facility] Blood Venous blood specimen / Unknown Venipuncture / Unknown 02/05/2025 5:27 AM EDT 02/05/2025 6:10 AM EDT Naeem Daniels MD LAB BLOOD ORDERABLES Final Res ult Performing Organization Address City/[facility]/ZIP Co de Phone Number [facility] [address] [place] [address], [place] [phone] * (ABNORMAL) Basic metabolic panel (02/05/2025 5:27 AM EDT) Sodium 142 133 - 145 mmol/L LAB CHEMISTRY METHOD 02/05/2025 7:47 AM EDT [facility] Potassium 2.9(LL) 3.5 - 5.5 mmol/L LAB CHEMISTRY METHOD 02/05/2025 7:47 AM EDT [facility] Chloride 107 96 - 110 mmol/L LAB CHEMISTRY METHOD 02/05/2025 7:47 AM EDT [facility] CO2 27 21 - 32 mmol/L LAB CHEMISTRY METHOD 02/05/2025 7:47 AM [facility] Anion Gap 8 3 - 11 LAB CHEMISTRY METHOD 02/05/2025 7:47 AM [facility] Glucose 87 70 - 100 mg/dL LAB CHEMISTRY METHOD 02/05/2025 7:47 AM [facility] BUN 31(H) 5 - 25 mg/dL LAB CHEMISTRY METHOD 02/05/2025 7:47 AM [facility] Creatinine 1.12 0.70 - 1.30 mg/dL LAB CHEMISTRY METHOD 02/05/2025 7:47 AM [facility] eGFR 74 >=60 mL/min/1. 73m2 LAB CHEMISTRY METHOD 02/05/2025 7:47 AM [facility] Comment:Calculation based on the Chronic Kidney Disease Epidemiology Collaboration (CKD-EPI) equation refit without adjustment for race. BUN/Creatinine Ratio 27.7 LAB CHEMISTRY METHOD 02/05/2025 7:47 AM [facility] Calcium 9.3 8.5 - 10.5 mg/dL LAB CHEMISTRY METHOD 02/05/2025 7:47 AM [facility] Blood Venous blood specimen / Unknown Venipuncture / Unknown 02/05/2025 5:27 AM EDT 02/05/2025 6:10 AM EDT us Naeem Daniels MD LAB BLOOD ORDERABLES Final Res ult [facility] [address] [place] [address], * (ABNORMAL) Heparin and low molecular weight anti Xa level (02/05/2025 12:10 AM EDT) Heparin Anti-Xa 0.80(H) 0.30 - 0.70 I Unit/mL LAB COAGULATION METHOD 02/05/2025 12:53 AM EDT [facility] Blood Venous blood specimen / Unknown Venipuncture / Unknown 02/05/2025 12:10 AM EDT 02/05/2025 12:43 AM EDT [facility] - 02/05/2025 12:53 AM EDT Therapeutic range listed is for Unfractionated Heparin. LMW Heparin therapeutic range: 0.50-1.20 IU/mL Naeem Daniels MD LAB BLOOD ORDERABLES Final Res ult Performing Organization Address [facility]/ZIP Co de Phone Number [facility] [address] [place] [address], * (ABNORMAL) Anti-Xa - Every 6 Hours (02/04/2025 10:07 PM EDT) Heparin Anti-Xa 1.56(HH) 0.30 - 0.70 I Unit/mL LAB COAGULATION METHOD 02/04/2025 10:48 PM EDT [facility] Blood Venous blood specimen / Unknown Venipuncture / Unknown 02/04/2025 10:07 PM EDT 02/04/2025 10:17 PM EDT [facility] - 02/04/2025 10:48 PM EDT Therapeutic range listed is for Unfractionated Heparin. LMW Heparin therapeutic range: 0.50-1.20 IU/mL Matias Maxwell MD LAB BLOOD ORDERABLES Final Resul t [facility] [address] [place] [address], * (ABNORMAL) Activated Partial Thromboplastin Time - STAT (02/04/2025 10:07 PM EDT) aPTT >400.0(HH ) 24.1 - 39.3 sec LAB COAGULATION METHOD 02/04/2025 10:49 PM EDT [facility] Blood Venous blood specimen / Unknown Venipuncture / Unknown 02/04/2025 10:07 PM EDT 02/04/2025 10:17 PM EDT us Frances Edward MD LAB BLOOD ORDERABLES Final R esult [facility] [address] [place] [address], [place] [phone] * CT Chest/Abdomen/Pelvis wo Contrast (02/04/2025 6:00 PM EDT) Anatomical Region Laterality Modality Body Computed Tomogra phy 02/04/2025 7:14 PM EDT Impressions 02/04/2025 7:14 PM EDT Impression: 1. Mild patchy bilateral upper lobe ground-glass opacities, concerning for multifocal pneumonia or nonspecific pneumonitis, as described above. 2. No acute abnormality within the abdomen or pelvis. This document has been electronically signed by: Keith De Souza MD on 02/04/2025 19:14:22 Narrative 02/04/2025 7:14 PM EDT INDICATION: elevated creatinine, hypoxic. evaluate for obstructive etiology, pneumonia, other Exam: Nonenhanced CT chest, abdomen and pelvis with multiplanar reformats. Comparison: None. Findings: CT chest: Lungs reveal bilateral lower lobe atelectasis. Minimal patchy ground-glass opacities primarily involving upper lobes (for example, 4; 100-130) are nonspecific, could suggest mild nonspecific multifocal pneumonia or pneumonitis (including COVID infection). No other mari consolidation. Airways appear patent. No pneumothorax. No mediastinal or hilar masses or adenopathy. No pleural or pericardial effusions. Osseous structures reveal no destructive osseous lesions. CT abdomen: Liver is free of gross focal lesions and ductal dilatation. Gallbladder is unremarkable. Spleen reveals an equivocal subtle wedge-shaped hypodensity (5; 109-135), raising the possibility of splenic infarct. Pancreas and right adrenal gland appear unremarkable. Left adrenal gland reveals a 17 mm low-density nodule (5; 125,-14 Hounsfield units), likely adenoma. Kidneys appear unremarkable. No urolithiasis or hydroureteronephrosis appreciated. No free intraperitoneal fluid or retroperitoneal masses or adenopathy. Abdominal aorta is normal caliber with [id number] calcific athero sclerosis. Bowel loops reveal no abnormal wall thickening or distention. Colonic diverticulosis is present, without CT evidence of diverticulitis. The appendix appears unremarkable. CT pelvis: Evaluation of the lower pelvis is limited by streak artifact from patient's right hip arthroplasty hardware. No gross pelvic masses, fluid or adenopathy. A Chaves catheter is present within urinary bladder. Osseous structures reveal no destructive osseous lesions. There are advanced left hip osteoarthritic changes. Procedure Note Keith De Souza MD - 02/04/2025 INDICATION: elevated creatinine, hypoxic. evaluate for obstructive etiology, pneumonia, other Exam: Nonenhanced CT chest, abdomen and pelvis with multiplanarreformats. Comparison: None. Findings: CT chest: Lungs reveal bilateral lower lobe atelectasis. Minimal patchy ground-glass opacities primarily involving upper lobes (for example, 4; 100-130) are nonspecific, could suggest mild nonspecific multifocal pneumonia or pneumonitis (including COVID infection). No other mari consolidation. Airways appear patent. No pneumothorax. No mediastinal or hilar masses or adenopathy. No pleural or pericardial effusions. Osseous structures reveal no destructive osseous lesions. CT abdomen: Liver is free of gross focal lesions and ductal dilatation. Gallbladder is unremarkable. Spleen reveals an equivocal subtle wedge-shaped hypodensity (5; 109-135), raising the possibility ofsplenic infarct. Pancreas and right adrenal gland appear unremarkable. Left adrenal gland reveals a 17 mm low-density nodule (5; 125,-14 Hounsfield units), likely adenoma. Kidneys appear unremarkable. No urolithiasis or hydroureteronephrosis appreciated. No free intraperitoneal fluid or retroperitoneal masses or adenopathy. Abdominal aorta is normal caliber with [id number] calcific athero sclerosis. Bowel loops reveal no abnormal wall thickening or distention. Colonic diverticulosis is present, without CT evidence of diverticulitis. The appendix appears unremarkable. CT pelvis: Evaluation of the lower pelvis is limited by streak artifact from patient's right hip arthroplasty hardware. No gross pelvic masses, fluid or adenopathy. A Chaves catheter is present within urinary bladder. Osseous structures reveal no destructive osseous lesions. There are advanced left hip osteoarthritic changes. IMPRESSION: Impression: 1. Mild patchy bilateral upper lobe ground-glass opacities, concerningfor multifocal pneumonia or nonspecific pneumonitis, as described above. 2. No acute abnormality within the abdomen or pelvis. This document has been electronically signed by: Keith De Souza MD on 02/04/2025 19:14:22 us Frances Edward MD IMG CT PROCEDURES Final Resu lt * Vascular US Duplex Lower Extremity Venous Bilateral (02/04/2025 5:35 PM EDT) Anatomical Region Laterality Modality Vascular, Abdomen Ultrasound 02/04/2025 5:59 PM EDT Impressions 02/04/2025 5:59 PM EDT Impression: 1. Negative for bilateral lower extremity DVT 2. No Townsend's cyst This document has been electronically signed by: Gurvinder Roe MD on 02/04/2025 17:59:42 Narrative 02/04/2025 5:59 PM EDT INDICATION: edema Bilateral lower extremity duplex venous Doppler Comparison: None Technique: Grayscale/Color/Duplex Doppler sonographic evaluation of the deep venous system within both lower extremities. Findings: Right lower extremity Common femoral vein: Patent CFV/GSV junction: Patent Femoral vein: Patent Popliteal vein: Patent Infrapopliteal veins: Patent where seen Soft tissue: No focal abnormality Left lower extremity Common femoral vein: Patent CFV/GSV junction: Patent Femoral vein: Patent Popliteal vein: Patent Infrapopliteal veins: Patent where seen Soft tissues: No focal abnormality Procedure Note Gurvinder Roe MD - 02/04/2025 INDICATION: edema Bilateral lower extremity duplex venous Doppler Comparison: None Technique: Grayscale/Color/Duplex Doppler sonographic evaluation of the deep venous system within both lower extremities. Findings: Right lower extremity Common femoral vein: Patent CFV/GSV junction: Patent Femoral vein: Patent Popliteal vein: Patent Infrapopliteal veins: Patent where seen Soft tissue: No focal abnormality Left lower extremity Common femoral vein: Patent CFV/GSV junction: Patent Femoral vein: Patent Popliteal vein: Patent Infrapopliteal veins: Patent where seen Soft tissues: No focal abnormality IMPRESSION: Impression: 1. Negative for bilateral lower extremity DVT 2. No Townsend's cyst This document has been electronically signed by: Gurivnder Roe MD on 02/04/2025 17:59:42 us Frances Edward MD CV VASCULAR PROCEDURES Final Result * (ABNORMAL) B-type natriuretic peptide (02/04/2025 4:32 PM EDT) BNP 180(H) <=100 pcg/mL LAB CHEMISTRY METHOD 02/04/2025 5:32 PM EDT [facility] Blood Venous blood specimen / Unknown Venipuncture / Unknown 02/04/2025 4:32 PM EDT 02/04/2025 4:54 PM EDT us Frances Edward MD LAB BLOOD ORDERABLES Final R esult Performing Organization Address City/[facility]/ZIP Co de Phone Number [facility] [address] [place] [address], [place] [phone] * Prothrombin Time with INR - STAT (02/04/2025 4:29 PM EDT) Pathologist [facility] Protime 13.7 10.6 - 13.9 sec LAB COAGULATION METHOD 02/04/2025 9:07 PM EDT [facility] INR 1.1 LAB COAGULATION METHOD 02/04/2025 9:07 PM EDT [facility] Blood Venous blood specimen / Unknown Venipuncture / Unknown 02/04/2025 4:29 PM EDT 02/04/2025 4:54 PM EDT us Frances Edward MD LAB BLOOD ORDERABLES Final R esult Performing Organization Address City/[facility]/ZIP Co de Phone Number [facility] [address] [place] [address], [place] [phone] * (ABNORMAL) Heparin and low molecular weight anti Xa level (02/04/2025 4:29 PM EDT) [facility] Heparin Anti-Xa <0.04(L) 0.30 - 0.70 I Unit/mL LAB COAGULATION METHOD 02/04/2025 7:19 PM EDT [facility] Blood Venous blood specimen / Unknown Venipuncture / Unknown 02/04/2025 4:29 PM EDT 02/04/2025 4:54 PM EDT Narrative [facility] - 02/04/2025 7:19 PM EDT Therapeutic range listed is for Unfractionated Heparin. LMW Heparin therapeutic range: 0.50-1.20 IU/mL us Frances Edward MD LAB BLOOD ORDERABLES Final R esult [facility] [address] [place] [address], * (ABNORMAL) CBC auto differential (02/04/2025 4:29 PM EDT) [facility] WBC 15.4(H) 4.8 - 10.8 K/mcL LAB HEMETOLOGY METHOD 02/04/2025 5:08 PM EDT [facility] RBC 3.60(L) 4.50 - 5.50 M/mcL LAB HEMETOLOGY METHOD 02/04/2025 5:[facility] Hemoglobin 12.4(L) 13.5 - 17.5 g/dL LAB HEMETOLOGY METHOD 02/04/2025 5:08 PM EDT [facility] Hematocrit 33.9(L) 42.0 - 54.0 % LAB HEMETOLOGY METHOD 02/04/2025 5:08 PM EDT [facility] MCV 95.5 79.0 - 98.0 FL LAB HEMETOLOGY METHOD 02/04/2025 5:08 PM [facility] MCH 34.9(H) 27.0 - 32.0 pcg LAB HEMETOLOGY METHOD 02/04/2025 5:08 PM [facility] MCHC 36.6 32.0 - 37.0 g/dL LAB HEMETOLOGY METHOD 02/04/2025 5:08 PM [facility] RDW 11.0 11.0 - 15.0 % LAB HEMETOLOGY METHOD 02/04/2025 5:08 PM [facility] Platelets 214 130 - 400 K/mcL LAB HEMETOLOGY METHOD 02/04/2025 5:08 PM [facility] MPV 10.6 7.0 - 11.0 FL LAB HEMETOLOGY METHOD 02/04/2025 5:08 PM [facility] NRBC 0.0 <1.0 % LAB HEMETOLOGY METHOD 02/04/2025 5:08 PM [facility] NRBC Absolute 0.00 <0.10 K/mcL LAB HEMETOLOGY METHOD 02/04/2025 5:08 PM [facility] Neutrophils Relative 88.5 % LAB HEMETOLOGY METHOD 02/04/2025 5:08 PM [facility] Lymphocytes Relative 5.6 % LAB HEMETOLOGY METHOD 02/04/2025 5:08 PM [facility] Monocytes Relative 4.5 % LAB HEMETOLOGY METHOD 02/04/2025 5:08 PM [facility] Eosinophils Relative 0.1 % LAB HEMETOLOGY METHOD 02/04/2025 5:08 PM [facility] Basophils Relative 0.1 % LAB HEMETOLOGY METHOD 02/04/2025 5:08 PM [facility] Immature Granulocytes Relative 1.2 % LAB HEMETOLOGY METHOD 02/04/2025 5:08 PM [facility] Neutrophils Absolute 13.62(H) 1.50 - 7.00 K/mcL LAB HEMETOLOGY METHOD 02/04/2025 5:08 PM EDT [facility] Lymphocytes Absolute 0.86(L) 1.00 - 5.00 K/mcL LAB HEMETOLOGY METHOD 02/04/2025 5:08 PM EDT [facility] Monocytes Absolute 0.69 0.20 - 1.00 K/[facility] HEMETOLOGY METHOD 02/04/2025 5:08 PM EDT [facility] Eosinophils Absolute 0.01 0.00 - 0.50 K/[facility] LAB HEMETOLOGY METHOD 02/04/2025 5:08 PM EDT [facility] Basophils Absolute 0.02 0.00 - 0.20 K/[facility] HEMETOLOGY METHOD 02/04/2025 5:08 PM EDT [facility] Immature Granulocytes Absolute 0.18(H) 0.00 - 0.03 K/[facility] HEMETOLOGY METHOD 02/04/2025 5:08 PM EDT [facility] Blood Venous blood specimen / Unknown Venipuncture / Unknown 02/04/2025 4:29 PM EDT 02/04/2025 4:54 PM EDT Frances Edward MD LAB BLOOD ORDERABLES Final R esult [facility] [address] [place] [address], * Troponin I high sensitivity (02/04/2025 4:29 PM EDT) High Sensitivity Troponin I 60 <=79 ng/L LAB CHEMISTRY METHOD 02/04/2025 5:29 PM EDT [facility] Blood Venous blood specimen / Unknown Venipuncture / Unknown 02/04/2025 4:29 PM EDT 02/04/2025 4:54 PM EDT Narrative [facility] - 02/04/2025 5:29 PM EDT High levels of biotin in samples may falsely decrease hsTroponin values. Use caution when interpreting hsTroponin results in patients taking biotin who exhibit renal impairment (eGFR <60) or in patients taking more than 20 mg/day of biotin. us Frances Edward MD LAB BLOOD ORDERABLES Final R esult Performing Organization Address City/[facility]/ZIP Co de Phone Number [facility] [address] [place] [address], [place] [phone] * Magnesium (02/04/2025 4:29 PM EDT) [facility] Magnesium 2.4 1.9 - 2.6 mg/dL LAB CHEMISTRY METHOD 02/04/2025 5:26 PM EDT [facility] Blood Venous blood specimen / Unknown Venipuncture / Unknown 02/04/2025 4:29 PM EDT 02/04/2025 4:54 PM EDT us Frances Edward MD LAB BLOOD ORDERABLES Final R esult Performing Organization Address City/[facility]/ZIP Co de Phone Number [facility] [address] [place] [address], [place] [phone] * (ABNORMAL) D-dimer, quantitative (02/04/2025 4:29 PM EDT) [facility] D-Dimer, Quant (D-DU) 5,925(H) <=230 ng/mL DDU LAB COAGULATION METHOD 02/04/2025 5:16 PM EDT [facility] Blood Venous blood specimen / Unknown Venipuncture / Unknown 02/04/2025 4:29 PM EDT 02/04/2025 4:54 PM EDT Narrative [facility] - 02/04/2025 5:16 PM EDT D-Dimer <230 ng/mL (D-Dimer units) is the threshold for exclusion of DVT/PE. D-Dimer may be elevated in: Critically ill, severely infected, trauma patients, DIC, acute CVA, acute RI, unstable angina, AF, old age, , and smoking. D-Dimer may be decreased with: Initiation of heparin therapy and oral anticoagulants. Franecs Edward MD LAB BLOOD ORDERABLES Final R esult [facility] [address] [place] [address], * (ABNORMAL) Comprehensive metabolic panel (02/04/2025 4:29 PM EDT) Sodium 130(L) 133 - 145 mmol/L LAB CHEMISTRY METHOD 02/04/2025 5:28 PM [facility] Potassium 3.9 3.5 - 5.5 mmol/L LAB CHEMISTRY METHOD 02/04/2025 5:28 PM [facility] Chloride 98 96 - 110 mmol/L LAB CHEMISTRY METHOD 02/04/2025 5:28 PM [facility] CO2 25 21 - 32 mmol/L LAB CHEMISTRY METHOD 02/04/2025 5:28 PM [facility] Anion Gap 7 3 - 11 LAB CHEMISTRY METHOD 02/04/2025 5:28 PM [facility] Glucose 165(H) 70 - 100 mg/dL LAB CHEMISTRY METHOD 02/04/2025 5:28 PM [facility] BUN 66(H) 5 - 25 mg/dL LAB CHEMISTRY METHOD 02/04/2025 5:28 PM [facility] Creatinine 4.67(H) 0.70 - 1.30 mg/dL LAB CHEMISTRY METHOD 02/04/2025 5:28 PM [facility] eGFR 13(L) >=60 mL/min/1. 73m2 LAB CHEMISTRY METHOD 02/04/2025 5:28 PM [facility] Comment:Calculation based on the Chronic Kidney Disease Epidemiology Collaboration (CKD-EPI) equation refit without adjustment for race. BUN/Creatinine Ratio 14.1 LAB CHEMISTRY METHOD 02/04/2025 5:28 PM [facility] Calcium 9.1 8.5 - 10.5 mg/dL LAB CHEMISTRY METHOD 02/04/2025 5:28 PM [facility] AST (SGOT) 21 10 - 42 unit/L LAB CHEMISTRY METHOD 02/04/2025 5:28 PM [facility] ALT (SGPT) 22 10 - 60 unit/L LAB CHEMISTRY METHOD 02/04/2025 5:28 PM [facility] Alkaline Phosphatase 90 42 - 121 unit/L LAB CHEMISTRY METHOD 02/04/2025 5:28 PM [facility] Total Protein 6.9 6.0 - 8.0 g/dL LAB CHEMISTRY METHOD 02/04/2025 5:28 PM [facility] Albumin 3.3 3.2 - 5.0 g/dL LAB CHEMISTRY METHOD 02/04/2025 5:28 PM [facility] Total Bilirubin 0.7 0.0 - 1.4 mg/dL LAB CHEMISTRY METHOD 02/04/2025 5:28 PM [facility] Blood Venous blood specimen / Unknown Venipuncture / Unknown 02/04/2025 4:29 PM EDT 02/04/2025 4:54 PM EDT us Frances Edward MD LAB BLOOD ORDERABLES Final R esult [facility] [address] [place] [address], * (ABNORMAL) Urinalysis with reflex microscopic (02/04/2025 4:13 PM EDT) Specific [place] Urine 1.010 1.003 - 1.030 LAB URINALYSIS - AUTOMATED METHOD 02/04/2025 5:08 PM [facility] pH, Urine 5.5 5.0 - 8.0 pH LAB URINALYSIS - AUTOMATED METHOD 02/04/2025 5:08 PM [facility] Leukocytes, Urine Trace(A) Negative LAB URINALYSIS - AUTOMATED METHOD 02/04/2025 5:08 PM [facility] Nitrite, Urine Negative Negative LAB URINALYSIS - AUTOMATED METHOD 02/04/2025 5:08 PM [facility] Protein, Urine Negative <=Trace mg/dL LAB URINALYSIS - AUTOMATED METHOD 02/04/2025 5:08 PM [facility] Glucose, Urine Negative Negative mg/dL LAB URINALYSIS - AUTOMATED METHOD 02/04/2025 5:08 PM [facility] Ketones, Urine Negative Negative mg/dL LAB URINALYSIS - AUTOMATED METHOD 02/04/2025 5:08 PM [facility] Urobilinogen, Urine 0.2 0.2 - 1.0 mg/dL LAB URINALYSIS - AUTOMATED METHOD 02/04/2025 5:08 PM [facility] Bilirubin, Urine Negative Negative LAB URINALYSIS - AUTOMATED METHOD 02/04/2025 5:08 PM [facility] Blood, Urine Negative Negative LAB URINALYSIS - AUTOMATED METHOD 02/04/2025 5:08 PM [facility] RBC, Urine 1.2 0 - 4 /HPF LAB URINALYSIS - AUTOMATED METHOD 02/04/2025 5:08 PM [facility] WBC, Urine 4.2(H) 0 - 4 /HPF LAB URINALYSIS - AUTOMATED METHOD 02/04/2025 5:08 PM [facility] Squamous Epithelial, Urine 12 0 - 60 /LPF LAB URINALYSIS - AUTOMATED METHOD 02/04/2025 5:08 PM [facility] Bacteria, Urine Negative Negative /HPF LAB URINALYSIS - AUTOMATED METHOD 02/04/2025 5:08 PM EDT [facility] Hyaline Casts, Urine 0.0 0 - 3 /LPF LAB URINALYSIS - AUTOMATED METHOD 02/04/2025 5:08 PM EDT [facility] Urine Urine specimen obtained by clean catch procedure / Unknown Non-blood Collection / Unknown 02/04/2025 4:13 PM EDT 02/04/2025 4:52 PM EDT Frances Edward MD LAB URINE ORDERABLES Final R esult Performing Organization Address City/[facility]/ZIP Co de Phone Number [facility] [address] [place] [address], [place] [phone] * ECG 12 lead (02/04/2025 3:52 PM EDT) Ventricular Rate ECG 70 BPM GEMUSE Atrial Rate 70 BPM GEMUSE P-R Interval 172 ms GEMUSE QRS Duration 98 ms GEMUSE Q-T Interval 442 ms GEMUSE QTc 477 ms GEMUSE P Wave [place] 34 degrees GEMUSE R [place] -2 degrees GEMUSE T [place] -16 degrees GEMUSE ECG Interpretation Normal sinus rhythm Normal ECG No previous ECGs available Confirmed by LISSA SAUL ([id number]) on 02/05/2025 7:17:54 AM GEMUSE 02/04/2025 3:52 PM EDT 02/05/2025 7:17 AM EDT Frances Edward MD ECG ORDERABLES Final Result GEMUSE documented in this encounter Visit Diagnoses Diagnosis Urinary retention- Primary Unspecified retention of urine Lower extremity edema Edema Positive D dimer Abnormal coagulation profile Urinary retention Unspecified retention of urine Deep vein thrombosis (DVT) of other vein of lower extremity, unspecified chronicity, unspecified laterality ([facility] V24, CMS/[facility] V28) Lower extremity edema Edema documented in this encounter Admitting Diagnoses Diagnosis Urinary retention Unspecified retention of urine Lower extremity edema Edema documented in this encounter Administered Medications Inactive Administered Medications - up to 3 most recent administrations Medication Order MAR Action Action Date Dose Rate Site acetaminophen (TYLENOL) tablet 650 mg 650 mg, oral, Every 6 hours PRN, mild pain, moderate pain, headaches, fever - temperature GREATER than 38 C (100.4 F), Starting on Thu02/04/25 at 2031 Given 02/06/2025 7:11 AM EDT 650 mg Given 02/05/2025 11:45 PM EDT 650 mg Given 02/05/2025 5:06 PM EDT 650 mg amLODIPine (NORVASC) tablet 10 mg 10 mg, oral, Daily, First dose on Thu02/07/25 at 0900 Given 02/09/2025 9:11 AM EDT 10 mg Given 02/08/2025 9:22 AM EDT 10 mg Given 02/07/2025 9:14 AM EDT 10 mg apixaban (ELIQUIS) tablet 10 mg 10 mg, oral, 2 times daily, First dose on Thu02/07/25 at 2100, Indication: VTE/PE Treatment Given 02/07/2025 9:15 PM EDT 10 mg apixaban (ELIQUIS) tablet 10 mg 10 mg, oral, 2 times daily, First dose (after last reorder) on Thu02/08/25 at 0900, For 13 doses, Indication: VTE/PE Treatment Given 02/09/2025 9:11 AM EDT 10 mg Given 02/08/2025 8:14 PM EDT 10 mg Given 02/08/2025 9:22 AM EDT 10 mg azithromycin (ZITHROMAX) 500 mg in sodium chloride 0.9 % 250 mL IVPB 500 mg, intravenous, at 250 mL/hr, Administer over 60 Minutes, Once, On Thu02/04/25 at 2000, For 1 dose, Indication: Pneumonia, Community Acquired New Bag 02/04/2025 9:07 PM EDT 500 mg 250 mL/hr azithromycin (ZITHROMAX) 500 mg in sodium chloride 0.9 % 250 mL IVPB 500 mg, intravenous, at 250 mL/hr, Administer over 60 Minutes, Every 24 hours, First dose on Thu02/05/25 at 0900, For 4 days, Indication: Pneumonia, Community Acquired New Bag 02/07/2025 9:14 AM EDT 500 mg 2 50 mL/hr New Bag 02/06/2025 12:25 PM EDT 500 mg 250 mL/hr New Bag 02/05/2025 8:58 AM EDT 500 mg 250 mL/hr cefTRIAXone (ROCEPHIN) 1 g in sterile water 10 mL IV syringe 1 g, intravenous, Administer over 3 Minutes, Once, On 02/04/25 at 1938, For 1 dose, Do not administer simultaneously with any calcium containing solutions via a Y-site in any patient., Indication: Pneumonia, Community Acquired Given 02/04/2025 9:06 PM EDT 1 g cefTRIAXone (ROCEPHIN) 1 g in sterile water 10 mL IV syringe 1 g, intravenous, Administer over 3 Minutes, Every 24 hours, First dose on 02/05/25 at 0900, For 4 days, Do not administer simultaneously with any calcium containing solutions via a Y-site in any patient., Indication: Pneumonia, Community Acquired Given 02/07/2025 9:14 AM EDT 1 g Given 02/06/2025 12:25 PM EDT 1 g Given 02/05/2025 8:59 AM EDT 1 g heparin (UFH) bolus from infusion 4,040 Units 4,040 Units (40 Units/kg 101 kg), intravenous, Every 6 hours PRN, Per current Anti-Xa result, Starting on 02/04/25 at 2305, Bolus from infusion. Suggested bolus infusion time is over 10 minutes., Indication: Treatment of Venous Thromboembolism (i.e. VTE,PE) Bolus from Bag 02/07/2025 9:18 AM EDT 4,040 Units Bolus from Bag 02/05/2025 8:04 PM EDT 4,040 Units heparin (UFH) bolus from infusion 7,676 Units 7,676 Units (76 Units/kg 101 kg), intravenous, Once, On 02/04/25 at 1906, For 1 dose, *Initial bolus for patients GREATER than 100 kg and LESS than OR equal to 108.1 kg* Bolus from infusion. Suggested bolus infusion time is over 10 minutes., Indication: Treatment of Venous Thromboembolism (i.e. VTE,PE) Bolus from Bag 02/04/2025 9:05 PM EDT 7,676 Units heparin (UFH) bolus from infusion 8,080 Units 8,080 Units (80 Units/kg 101 kg), intravenous, Every 6 hours PRN, Per current Anti-Xa result, Starting on 02/04/25 at 2305, Bolus from infusion. Suggested bolus infusion time is over 10 minutes., Indication: Treatment of Venous Thromboembolism (i.e. VTE,PE) Bolus from Bag 02/06/2025 2:47 PM EDT 8,080 Units heparin (UFH) in 5% dextrose 25,000 Units/250 mL (100 Units/mL) infusion 16 Units/kg/hr 101 kg (16.16 mL/hr, rounded to 16.2 mL/hr), intravenous, Continuous, Starting on 02/04/25 at 1906 Rate/Dose Change 02/07/2025 9:21 AM EDT 20 Units/kg/hr 20.2 mL/hr New Bag 02/07/2025 4:06 AM EDT 18 Units/kg/hr 18.2 mL/h r Rate/Dose Change 02/06/2025 8:09 PM EDT 18 Units/kg/hr 18. 2 mL/hr HYDROmorphone (DILAUDID) injection 1 mg 1 mg, intravenous, Every 6 hours PRN, severe pain, Starting on 02/05/25 at 0933 Given 02/09/2025 6:58 AM EDT 1 mg Given 02/08/2025 8:30 PM EDT 1 mg Given 02/08/2025 9:22 AM EDT 1 mg melatonin tablet 3 mg 3 mg, oral, Once, On Thu02/07/25 at 0015, For 1 dose Given 02/07/2025 12:11 AM EDT 3 mg perflutren lipid microsphere (DEFINITY) 1.3 mL in sodium chloride 0.9% 8.7 mL injection 10 mL, intravenous, Administer over 10 Minutes, Once in imaging, Starting on Thu02/07/25 at 1038, For 1 dose, CV Medication Orders Given 02/07/2025 10:38 AM EDT 10 mL potassium chloride (KLOR-CON M20) CR tablet 40 mEq 40 mEq, oral, Once, On Thu02/08/25 at 0930, For 1 dose, Tablet may be swallowed whole (do not crush/chew/suck on) OR broken in half and each half swallowed separately OR dissolved (whole tablet) in ~4 ounces of water (allow ~2 minutes to dissolve, stir well and administer immediately). Given 02/08/2025 9:22 AM EDT 40 mEq potassium chloride (KLOR-CON) packet 40 mEq 40 mEq, oral, Once, On 02/05/25 at 0845, For 1 dose, Dissolve each packet in 4 ounces of water = 5 mEq per 1 oz fluid. Given 02/05/2025 8:59 AM EDT 40 mEq potassium chloride (KLOR-CON) packet 40 mEq 40 mEq, oral, Once, On 02/05/25 at 1045, For 1 dose, Dissolve each packet in 4 ounces of water = 5 mEq per 1 oz fluid. Given 02/05/2025 12:35 PM EDT 40 mEq sodium chloride 0.9 % bolus 1,000 mL 1,000 mL, intravenous, at 2,000 mL/hr, Administer over 30 Minutes, Once, On 02/04/25 at 1550, For 1 dose New Bag 02/04/2025 4:31 PM EDT 1,000 mL 2000 mL/hr tamsulosin (FLOMAX) 24 hr capsule 0.4 mg 0.4 mg, oral, Nightly, First dose on Thu02/06/25 at 2100, For oral administration: capsules should be swallowed whole (Do not crush, chew, or open). For tube administration: open capsule and administer with water (granules should NOT be crushed). Given 02/08/2025 8:14 PM EDT 0.4 mg Given 02/07/2025 9:15 PM EDT 0.4 mg Given for Pain 02/06/2025 9:02 PM EDT 0.4 mg TC-99M MAA radio-isotope injection 5.2 millicurie 5.2 millicurie, intravenous, Once in imaging, Starting on Thu02/06/25 at 1039, For 1 dose Given 02/06/2025 10:39 AM EDT 5.2 millicuries traMADoL (ULTRAM) tablet 50 mg 50 mg, oral, Every 12 hours PRN, severe pain, Starting on 02/04/25 at 2342, Max of 300 mg daily for patients greater than 75 years of age. Given 02/09/2025 12:46 PM EDT 50 mg Given 02/09/2025 12:39 AM EDT 50 mg Given 02/08/2025 1:36 PM EDT 50 mg documented in this encounter Discontinued Medications Medication Sig Discontinue Reason Start Date End Da te carvediloL (COREG) 25 mg tablet Take 1 tablet (25 mg total) by mouth 2 (two) times a day with meals. Entered in Error 02/04/2025 fexofenadine (CRISELDA) 180 mg tablet Take 1 tablet (180 mg total) by mouth 1 (one) time each day. Entered in Error 02/04/2025 cholecalciferol (VITAMIN D-3) 50 mcg (2,000 unit) tablet Take 1 tablet (2,000 Units total) by mouth 1 (one) time each day. Entered in Error 02/04/2025 ascorbic acid (VITAMIN C) 1,000 mg tablet Take 1 tablet (1,000 mg total) by mouth 1 (one) time each day. Entered in Error 02/04/2025 amLODIPine (NORVASC) 10 mg tablet Take 1 tablet (10 mg total) by mouth 1 (one) time each day. Entered in Error 02/04/2025 methocarbamoL (ROBAXIN) 750 mg tablet Take 1 tablet (750 mg total) by mouth 2 (two) times a day if needed for muscle spasms. Entered in Error 02/04/2025 naproxen (NAPROSYN) 500 mg tablet Take 1 tablet (500 mg total) by mouth 2 (two) times a day if needed for mild pain or moderate pain. Entered in Error 02/04/2025 olmesartan (BENICAR) 40 mg tablet Take 1 tablet (40 mg total) by mouth 1 (one) time each day. Entered in Error 02/04/2025 omeprazole (PriLOSEC) [address] capsule Take 1 capsule (20 mg total) by mouth 1 (one) time each day. Do not crush or chew. Entered in Error 02/04/2025 oxyCODONE-acetaminophen (PERCOCET) 5-325 mg per tabletIndications:Neck pain Take 1 tablet by mouth every 6 (six) hours if needed for severe pain for up to 3 days. Max Daily Amount: 4 tablets Entered in Error 01/31/2025 02/04/2025 predniSONE (DELTASONE) 20 mg tablet Take 1 tablet (20 mg total) by mouth 2 times daily. Entered in Error 01/08/2025 02/04/2025 documented as of this encounter Active and Recently Administered Medications Times are shown in EDT. Scheduled Medication Order 02/07/2025 02/08/2025 02/09/2025 amLODIPine (NORVASC) tablet 10 mg 10 mg, oral, Daily, First dose on Thu02/07/25 at 0900 0914 (Given - Provider: Dawit Mackey RN) 09 (Given - Provider: Mohan Jc RN) 910 (Given - Provider: Jodie Casas) apixaban (ELIQUIS) tablet 10 mg (CANCELED) 10 mg, oral, 2 times daily, First dose on Thu02/07/25 at 2100, Indication: VTE/PE Treatment 2114 (Given - Provider: Candi Rocha, LONI) apixaban (ELIQUIS) tablet 10 mg 10 mg, oral, 2 times daily, First dose (after last reorder) on Thu02/08/25 at 0900, For 13 doses, Indication: VTE/PE Treatment 921 (Given - Provider: Mohan Jc RN)2013 (Given - Provider: Candi Rocha RN) 910 (Given - Provider: Jodie Casas) azithromycin (ZITHROMAX) 500 mg in sodium chloride 0.9 % 250 mL IVPB (CANCELED) 500 mg, intravenous, at 250 mL/hr, Administer over 60 Minutes, Every 24 hours, First dose on Thu02/05/25 at 0900, For 4 days, Indication: Pneumonia, Community Acquired 09 (New Bag - Provider: Dawit Mackey RN)1014 (Stopped - Provider: Dawit Mackey RN) cefTRIAXone (ROCEPHIN) 1 g in sterile water 10 mL IV syringe (CANCELED) 1 g, intravenous, Administer over 3 Minutes, Every 24 hours, First dose on Thu02/05/25 at 0900, For 4 days, Do not administer simultaneously with any calcium containing solutions via a Y-site in any patient., Indication: Pneumonia, Community Acquired 913 (Given - Provider: Dawit Mackey RN) hydroCHLOROthiazide (MICROZIDE) capsule 12.5 mg 12.5 mg, oral, Daily, First dose on Thu02/04/25 at 2031, On hold since Thu02/08/2025 at 0553 until manually unheld 0900 (Not Given - Provider: Dawit Mackey RN - Reason: See Provider Order) 0544 (Unheld by provider - Provider: Rosario Lees MD)0553 (Held by provider - Provider: Rosario Lees MD - Reason: Fluid imbalance)0900 (Not Given - Provider: Mohan Jc RN - Reason: See Provider Order) 0900 (Not Given - Provider: Jodie Casas - Reason: See Provider Order - Comment: see orders)1523 (Unheld by provider - Provider: Automatic Discharge Provider) melatonin tablet 3 mg (COMPLETED) 3 mg, oral, Once, On Thu02/07/25 at 0015, For 1 dose 0011 (Given - Provider: Jonelle Davey RN) perflutren lipid microsphere (DEFINITY) 1.3 mL in sodium chloride 0.9% 8.7 mL injection (COMPLETED) 10 mL, intravenous, Administer over 10 Minutes, Once in imaging, Starting on Thu02/07/25 at 1038, For 1 dose, CV Medication Orders 1038 (Given - Provider: Ashley Wiley) potassium chloride (KLOR-CON M20) CR tablet 40 mEq (COMPLETED) 40 mEq, oral, Once, On Thu02/08/25 at 0930, For 1 dose, Tablet may be swallowed whole (do not crush/chew/suck on) OR broken in half and each half swallowed separately OR dissolved (whole tablet) in ~4 ounces of water (allow ~2 minutes to dissolve, stir well and administer immediately). 921 (Given - Provider: Mohan Jc RN) tamsulosin (FLOMAX) 24 hr capsule 0.4 mg 0.4 mg, oral, Nightly, First dose on Thu02/06/25 at 2100, For oral administration: capsules should be swallowed whole (Do not crush, chew, or open). For tube administration: open capsule and administer with water (granules should NOT be crushed). 2114 (Given - Provider: Candi Rocha RN) 2013 (Given - Provider: Candi Rocha RN) Continuous Medication Order 02/07/2025 02/08/2025 02/09/2025 heparin (UFH) in 5% dextrose 25,000 Units/250 mL (100 Units/mL) infusion (CANCELED) 16 Units/kg/hr 101 kg (16.16 mL/hr, rounded to 16.2 mL/hr), intravenous, Continuous, Starting on 02/04/25 at 1906 0406 (New Bag - Provider: Jonelle Davey RN)0921 (Rate/Dose Change - Provider: Dawit Mackey RN)1703 (Stopped - Provider: Dawit Mackey RN) PRN Medication Order 02/07/2025 02/08/2025 02/09/2025 acetaminophen (TYLENOL) tablet 650 mg 650 mg, oral, Every 6 hours PRN, mild pain, moderate pain, headaches, fever - temperature GREATER than 38 C (100.4 F), Starting on 02/04/25 at 203 heparin (UFH) bolus from infusion 4,040 Units (CANCELED)(Linked Group 1) 4,040 Units (40 Units/kg 101 kg), intravenous, Every 6 hours PRN, Per current Anti-Xa result, Starting on 02/04/25 at 2305, Bolus from infusion. Suggested bolus infusion time is over 10 minutes., Indication: Treatment of Venous Thromboembolism (i.e. VTE,PE) 0918 (Bolus from Bag - Provider: Dawit Mackey RN) HYDROmorphone (DILAUDID) injection 1 mg 1 mg, intravenous, Every 6 hours PRN, severe pain, Starting on 02/05/25 at 0933 0429 (Given - Provider: Jonelle Davey RN) 0422 (Given - Provider: Candi Rocha RN)0922 (Given - Provider: Mohan Jc RN)2030 (Given - Provider: Candi Rocha RN) 0658 (Given - Provider: Jonelle Davey RN) traMADoL (ULTRAM) tablet 50 mg 50 mg, oral, Every 12 hours PRN, severe pain, Starting on 02/04/25 at 2342, Max of 300 mg daily for patients greater than 75 years of age. 0011 (Given - Provider: Jonelle Davey RN)0932 (Given - Provider: Dawit Mackey RN)2122 (Given - Provider: Candi Rocha RN) 1336 (Given - Provider: Teena Connolly RN) 0039 (Given - Provider: Jonelle Davey RN)1246 (Given - Provider: Jodie Casas) Linked Groups Order Group 1: heparin (UFH) bolus from infusion 8,080 Units (CANCELED) 8,080 Units (80 Units/kg 101 kg), intravenous, Every 6 hours PRN, Per current Anti-Xa result, Starting on 02/04/25 at 2305, Bolus from infusion. Suggested bolus infusion time is over 10 minutes., Indication: Treatment of Venous Thromboembolism (i.e. VTE,PE) Or heparin (UFH) bolus from infusion 4,040 Units (CANCELED)Jump to med 4,040 Units (40 Units/kg 101 kg), intravenous, Every 6 hours PRN, Per current Anti-Xa result, Starting on 02/04/25 at 2305, Bolus from infusion. Suggested bolus infusion time is over 10 minutes., Indication: Treatment of Venous Thromboembolism (i.e. VTE,PE) documented in this encounter Orders Medications Ordered That Abdirahman ht Not Have Been Administered Count Last Ordered Date First Ordered Date hydroCHLOROthiazide (MICROZI DE) capsule 12.5 mg 1 02/04/2025 traMADoL (ULTRAM) tablet 50 mg 1 02/04/2025 Nursing Count Last Ordered Date First Orde red Date INSERT INDWELLING CATHETER 1 02/04/2025 Consult Count Last Ordered Date First Orde red Date IP CONSULT TO HEMATOLOGY 1 02/06/2025 WOUND CARE INPATIENT FOLLOW-UP 1 02/06/2025 Respiratory Care Count Last Ordered Date First Ordered Date OXYGEN THERAPY, ADULT 7 02/08/20252024 PEP THERAPY 3 02/08/2025 02/06/2025 CPAP NIV 5 02/07/2025 02/05/2025 HOME O2 EVAL (DESATURATION SCREEN) 1 2024 Admission Count Last Ordered Date First Orde red Date ADMIT TO INPATIENT 1 02/05/2025 INITIATE OBS ADM REQ 1 02/04/2025 Transfer Count Last Ordered Date First Orde red Date TRANSFER PATIENT TO NEW UNIT 1 02/08/2025 Discharge Count Last Ordered Date First Orde red Date DISCHARGE PATIENT 1 02/08/2025 documented in this encounter Additional Health Concerns Infection Onset Date Last Indicated Resolved Time Respiratory Rule-Out 02/06/2025 02/07/2025 025 1:47 AM EDT COVID-19 Rule-Out 02/06/2025 02/07/2025 02/07/2025 1:47 AM EDT documented as of this encounter Care Teams Customs Inspector Relationship Specialty Start Date End Date Jenn Hu MD [address] [facility] [address] [place] [address] PCP - General Geriatric Medicine 02/01/25 documented as of this encounter
--- NOTE | 2025-02-13 09:19 | HO.SPINEOV ---
Intake Visit Reasons: 1st post op Intake Note: Mr. Jackson is here today for his 1st post op. Power Technician Required: No Allergies No Known Allergies Allergy (Verified 02/13/25 09:19) Assessment & Plan Assessment & Plan (1) S/P cervical spinal fusion: Code(s): Z98.1 - Arthrodesis status Category: Medical Plan Procedure: C3-C4 ACDF Lopez is a pleasant 64-year-old male who comes in today for his 1st postoperative visit after having a C3-[address] Davidson. He reports that overall he has been doing well since his surgery, and feels as though his weakness in his upper extremities in his bilateral hand numbness is slowly beginning to improve. Does state that he had a fairly complicated postoperative course, and was [facility] [place] which he had many difficulties with. He only stayed for about a day before calling for EMS transport to the emergency room so he could be placed in a different rehab facility. He was found to have a urinary tract infection after evaluation in the emergency department, and started on antibiotics. He currently has a [place] catheter in place, in his now on a different rehabilitation center in [place] called [facility]. He reports that his care has been good there, however he is about ready to transition home. We discussed how they will need to remove his Phoenix catheter and he will need to complete a voiding trial before the likely discharge him home. No new neurological deficits. The patient ambulates with the assistance of a walker. His bilateral hand private investigator surveillance strength and interossei testing is about 4/5. Thankfully his triceps/biceps testing bilaterally is 5/5. His anterior incision site is closed and well healing. I would like to follow up with [facility] again in 6 weeks with a set of x-rays. He was advised to call the clinic and update us if he remains at rehab for longer than 2 weeks from today. We will likely advise he discharges home. Stuart Davidson MD,PhD [facility] Coding Level of Care Code Global (37229) Diagnoses S/P cervical spinal fusion Z98.1
--- OUTSIDE RECORDS SUMMARY | 2025-02-13 10:41 | XMS_ITS | Encounter Summary ---
Author Organization [facility] Address [address] [place] [address] Care Team Providers Care Wardsperson Name Role Phone Jenn Hu MD Primary Care Provider [phone] Encounter Details Date Type Department Care Team (Late st Contact Info) Description 02/12/2025 Lab Requisition [facility] - Main Lab [address] [facility] [place] [address] Jenn Hu MD [address] [place] [address] Vitamin D deficiency, unspecified; Cervicalgia; Weakness; Essential (primary) hypertension Social History Tobacco Use Types Packs/Day Years Used Date Smoking Tobacco: Every Day Cigarettes 0.5 26 Passive Smoke Exposure: Current Smokeless Tobacco: Never Alcohol Use Standard Drinks/Week Comments Yes 0 [...] on file documented as of this encounter Functional Status * Are you [...] Caterina Paiz RN documented in this encounter Plan of Treatment Pending Results Name Type Priority Associated Diagnoses Date /Time Basic metabolic panel Lab Routine Vitamin D deficiency, unspecified Cervicalgia Weakness Essential (primary) hypertension 02/13/2025 5:40 AM EDT Scheduled Orders Name Type Priority Associated Diagnoses Orde r Schedule Complete blood count Lab Routine Vitamin D deficiency, unspecified Cervicalgia Weakness Essential (primary) hypertension Ordered: 02/12/2025 documented as of this encounter Visit Diagnoses Diagnosis Vitamin D deficiency, unspecified Cervicalgia Weakness Other malaise and fatigue Essential (primary) hypertension Unspecified essential hypertension documented in this encounter Care Teams Wardsperson Relationship Specialty Start Date End Date Jenn Hu MD [address] [place] [address] [address] [place] [address] PCP - General Geriatric Medicine 02/01/25 documented as of this encounter
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
--- OUTSIDE RECORDS SUMMARY | 2025-02-13 10:41 | XMS_ITS | Encounter Summary ---
Author Organization [facility] Address [address] [place] [address] Care Team Providers Care Marketing Technology Coordinator Name Role Phone Jenn Hu MD Primary Care Provider [phone] Encounter Details Date Type Department Care Team (Late st Contact Info) Description 02/10/2025 Lab Requisition [facility] - Main Lab [address] [facility] [place] [address] Jenn Hu MD [address] [place] [address] Urinary tract infection, site not specified Social History Tobacco Use Types Packs/Day Years [...] Procedure Name Priority Date/Time Associated Diagnosis Comments VITAMIN B12 AND FOLATE Routine 02/10/2025 6:59 AM EDT Urinary tract infection, site not specified CBC WITH AUTO DIFFERENTIAL Routine 02/10/2025 6:59 AM EDT Urinary tract infection, site not specified CBC AND DIFFERENTIAL Routine 02/10/2025 6:59 AM EDT Urinary tract infection, site not specified THYROID STIMULATING HORMONE Routine 02/10/2025 6:59 AM EDT Urinary tract infection, site not specified BASIC METABOLIC PANEL Routine 02/10/2025 6:59 AM EDT Urinary tract infection, site not specified documented in this encounter Results * (ABNORMAL) CBC auto differential (02/10/2025 6:59 AM EDT) [facility] WBC 11.7(H) 4.8 - 10.8 K/[facility] LAB HEMETOLOGY METHOD 02/10/2025 10:44 AM EDT [facility] RBC 3.40(L) 4.50 - 5.50 M/mcL LAB HEMETOLOGY METHOD 02/10/2025 10:44 AM [facility] Hemoglobin 11.3(L) 13.5 - 17.5 g/dL LAB HEMETOLOGY METHOD 02/10/2025 10:44 AM [facility] Hematocrit 33.3(L) 42.0 - 54.0 % LAB HEMETOLOGY METHOD 02/10/2025 10:44 AM [facility] MCV 97.4 79.0 - 98.0 FL LAB HEMETOLOGY METHOD 02/10/2025 10:44 AM [facility] MCH 33.0(H) 27.0 - 32.0 pcg LAB HEMETOLOGY METHOD 02/10/2025 10:44 AM [facility] MCHC 33.9 32.0 - 37.0 g/dL LAB HEMETOLOGY METHOD 02/10/2025 10:44 AM [facility] RDW 11.6 11.0 - 15.0 % LAB HEMETOLOGY METHOD 02/10/2025 10:44 AM [facility] Platelets 312 130 - 400 K/mcL LAB HEMETOLOGY METHOD 02/10/2025 10:44 AM [facility] MPV 10.1 7.0 - 11.0 FL LAB HEMETOLOGY METHOD 02/10/2025 10:44 AM [facility] NRBC 0.0 <1.0 % LAB HEMETOLOGY METHOD 02/10/2025 10:44 AM [facility] NRBC Absolute 0.00 <0.10 K/mcL LAB HEMETOLOGY METHOD 02/10/2025 10:44 AM [facility] Neutrophils Relative 72.4 % LAB HEMETOLOGY METHOD 02/10/2025 10:44 AM [facility] Lymphocytes Relative 15.3 % LAB HEMETOLOGY METHOD 02/10/2025 10:44 AM [facility] Monocytes Relative 7.8 % LAB HEMETOLOGY METHOD 02/10/2025 10:44 AM [facility] Eosinophils Relative 2.7 % LAB HEMETOLOGY METHOD 02/10/2025 10:44 AM [facility] Basophils Relative 0.3 % LAB HEMETOLOGY METHOD 02/10/2025 10:44 AM [facility] Immature Granulocytes Relative 1.5 % LAB HEMETOLOGY METHOD 02/10/2025 10:44 AM [facility] Neutrophils Absolute 8.46(H) 1.50 - 7.00 K/mcL LAB HEMETOLOGY METHOD 02/10/2025 10:44 AM [facility] Lymphocytes Absolute 1.79 1.00 - 5.00 K/mcL LAB HEMETOLOGY METHOD 02/10/2025 10:44 AM [facility] Monocytes Absolute 0.91 0.20 - 1.00 K/mcL LAB HEMETOLOGY METHOD 02/10/2025 10:44 AM [facility] Eosinophils Absolute 0.32 0.00 - 0.50 K/mcL LAB HEMETOLOGY METHOD 02/10/2025 10:44 AM [facility] Basophils Absolute 0.04 0.00 - 0.20 K/mcL LAB HEMETOLOGY METHOD 02/10/2025 10:44 AM [facility] Immature Granulocytes Absolute 0.18(H) 0.00 - 0.03 K/mcL LAB HEMETOLOGY METHOD 02/10/2025 10:44 AM [facility] Blood Venous blood specimen / Unknown Venipuncture / Unknown 02/10/2025 6:59 AM EDT 02/10/2025 9:24 AM EDT us Jenn Hu MD LAB BLOOD ORDERABLES Final Resul t Performing Organization Address [facility]/ZIP Co de Phone Number [facility] [address] [place] [address], [place] [phone] * Vitamin B12 and folate (02/10/2025 6:59 AM EDT) Pathologist [facility] Vitamin B-12 311 250 - 900 pcg/mL LAB CHEMISTRY METHOD 02/10/2025 11:40 AM EDT [facility] Folate 2.9 2.8 - 17.0 ng/ml LAB CHEMISTRY METHOD 02/10/2025 11:40 AM EDT [facility] Blood Venous blood specimen / Unknown Venipuncture / Unknown 02/10/2025 6:59 AM EDT 02/10/2025 9:24 AM EDT us Jenn Hu MD LAB BLOOD ORDERABLES Final Resul t Performing Organization Address City/[facility]/ZIP Co de Phone Number [facility] [address] [place] [address], [place] [phone] * Thyroid stimulating hormone (02/10/2025 6:59 AM EDT) [facility] TSH 0.71 0.40 - 4.00 mcIU/mL LAB CHEMISTRY METHOD 02/10/2025 12:07 PM EDT [facility] Blood Venous blood specimen / Unknown Venipuncture / Unknown 02/10/2025 6:59 AM EDT 02/10/2025 9:24 AM EDT us Jenn Hu MD LAB BLOOD ORDERABLES Final Resul t Performing Organization Address City/[facility]/ZIP Co de Phone Number [facility] [address] [place] [address], [place] [phone] * (ABNORMAL) Basic metabolic panel (02/10/2025 6:59 AM EDT) Sodium 139 133 - 145 mmol/L LAB CHEMISTRY METHOD 02/10/2025 11:15 AM [facility] Potassium 3.6 3.5 - 5.5 mmol/L LAB CHEMISTRY METHOD 02/10/2025 11:15 AM [facility] Chloride 106 96 - 110 mmol/L LAB CHEMISTRY METHOD 02/10/2025 11:15 AM [facility] CO2 26 21 - 32 mmol/L LAB CHEMISTRY METHOD 02/10/2025 11:15 AM [facility] Anion Gap 7 3 - 11 LAB CHEMISTRY METHOD 02/10/2025 11:15 AM [facility] Glucose 84 70 - 100 mg/dL LAB CHEMISTRY METHOD 02/10/2025 11:15 AM [facility] BUN 6 5 - 25 mg/dL LAB CHEMISTRY METHOD 02/10/2025 11:15 AM [facility] Creatinine 0.61(L) 0.70 - 1.30 mg/dL LAB CHEMISTRY METHOD 02/10/2025 11:15 AM [facility] eGFR 108 >=60 mL/min/1. 73m2 LAB CHEMISTRY METHOD 02/10/2025 11:15 AM [facility] Comment:Calculation based on the Chronic Kidney Disease Epidemiology Collaboration (CKD-EPI) equation refit without adjustment for race. BUN/Creatinine Ratio 9.8 LAB CHEMISTRY METHOD 02/10/2025 11:15 AM [facility] Calcium 9.0 8.5 - 10.5 mg/dL LAB CHEMISTRY METHOD 02/10/2025 11:15 AM [facility] Blood Venous blood specimen / Unknown Venipuncture / Unknown 02/10/2025 6:59 AM EDT 02/10/2025 9:24 AM EDT Jenn Hu MD LAB BLOOD ORDERABLES Final Resul t [facility] [address] [place] [address], documented in this encounter Visit Diagnoses Diagnosis Urinary tract infection, site not specified documented in this encounter Care Teams Marketing Technology Coordinator Relationship Specialty Start Date End Date Jenn Hu MD [address] [place] [address] [address] [place] [address] PCP - General Geriatric Medicine 02/01/25 documented as of this encounter
--- OUTSIDE RECORDS SUMMARY | 2025-02-13 10:41 | XMS_ITS | Encounter Summary ---
Author Organization [facility] Address [address] [place] [address] Care Team Providers Care Lead Tinner Name Role Phone Jenn Hu MD Primary Care Provider [phone] Encounter Details Date Type Department Care Team (Late st Contact Info) Description 02/04/2025 Lab Requisition [facility] - Main Lab [address] [facility] [place] [address] Jenn Hu MD [address] [place], [place] [phone] Chronic kidney disease, unspecified Social History Tobacco [...] Procedure Name Priority Date/Time Associated Diagnosis Comments BASIC METABOLIC PANEL Routine 02/04/2025 9:30 AM EDT Chronic kidney disease, unspecified documented in this encounter Results * (ABNORMAL) Basic metabolic panel (02/04/2025 9:30 AM EDT) Sodium 132(L) 133 - 145 mmol/L LAB CHEMISTRY METHOD 02/04/2025 12:12 PM [facility] Potassium 3.1(L) 3.5 - 5.5 mmol/L LAB CHEMISTRY METHOD 02/04/2025 12:12 PM [facility] Chloride 99 96 - 110 mmol/L LAB CHEMISTRY METHOD 02/04/2025 12:12 PM [facility] CO2 23 21 - 32 mmol/L LAB CHEMISTRY METHOD 02/04/2025 12:12 PM [facility] Anion Gap 10 3 - 11 LAB CHEMISTRY METHOD 02/04/2025 12:12 PM [facility] Glucose 78 70 - 100 mg/dL LAB CHEMISTRY METHOD 02/04/2025 12:12 PM [facility] BUN 66(H) 5 - 25 mg/dL LAB CHEMISTRY METHOD 02/04/2025 12:12 PM [facility] Creatinine 5.04(H) 0.70 - 1.30 mg/dL LAB CHEMISTRY METHOD 02/04/2025 12:12 PM EDT [facility] eGFR 12(L) >=60 mL/min/1. 73m2 LAB CHEMISTRY METHOD 02/04/2025 12:12 PM EDT [facility] Comment:Calculation based on the Chronic Kidney Disease Epidemiology Collaboration (CKD-EPI) equation refit without adjustment for race. BUN/Creatinine Ratio 13.1 LAB CHEMISTRY METHOD 02/04/2025 12:12 PM EDT [facility] Calcium 8.9 8.5 - 10.5 mg/dL LAB CHEMISTRY METHOD 02/04/2025 12:12 PM EDT [facility] Blood Venous blood specimen / Unknown Venipuncture / Unknown 02/04/2025 9:30 AM EDT 02/04/2025 11:17 AM EDT us Jenn Hu MD LAB BLOOD ORDERABLES Final Resul t [facility] [address] [place] [address], documented in this encounter Visit Diagnoses Diagnosis Chronic kidney disease, unspecified documented in this encounter Additional Health Concerns Infection Onset Date Last Indicated Resolved Time Respiratory Rule-Out 02/06/2025 02/07/2025 025 1:47 AM EDT COVID-19 Rule-Out 02/06/2025 02/07/2025 02/07/2025 1:47 AM EDT documented as of this encounter Care Teams Lead Tinner Relationship Specialty Start Date End Date Jenn Hu MD [address] [place] [address] [address] [place] [address] PCP - General Geriatric Medicine 02/01/25 documented as of this encounter
--- OUTSIDE RECORDS SUMMARY | 2025-02-13 10:41 | XMS_ITS | Encounter Summary ---
Author Organization [facility] Address [address] [place] [address] Care Team Providers Care Compliance Monitor Name Role Phone Brain Cyr Primary Care Provider [phone] Norma Rogel RN Unavailable Unavailable Encounter Details Date Type Department Care Team (Late st Contact Info) Description 05/11/2023 Scanned Document [facility] [place] at [address] [address] Orthopedic Surgery, Scan Social History [...] on filedocumented in this encounter Care Teams Compliance Monitor Relationship Specialty Start Date End Date Brain Cyr DO PCP - General 07/14/18 Norma Rogel, RN [place] Registered Nurse 07/14/18 documented as of this encounter
--- OUTSIDE RECORDS SUMMARY | 2025-02-13 10:41 | XMS_ITS | Encounter Summary ---
Author Organization [facility] Address [address] [place] [address] Care Team Providers Care Brake Reliner Name Role Phone Jenn Hu MD Primary Care Provider [phone] Encounter Details Date Type Department Care Team (Late st Contact Info) Description 02/08/2025 Telephone [facility] Hematology Oncology [address] [place] [address] Yon Delacruz MD [address] [place] [address] Social History Tobacco Use Types Packs/Day Years [...] Caterina Paiz RN documented in this encounter Progress Notes * Fabiola Pompa - 02/08/2025 8:49 AM EDT Took consult for PE documented in this encounter Plan of Treatment Not on file documented as of this encounter Visit Diagnoses Not on filedocumented in this encounter Care Teams Brake Reliner Relationship Specialty Start Date End Date Jenn Hu MD [address] [place] [address] [address] [place] [address] PCP - General Geriatric Medicine 02/01/25 documented as of this encounter
--- OUTSIDE RECORDS SUMMARY | 2025-02-13 10:42 | XMS_ITS | Encounter Summary ---
Author Organization [facility] Address [address] [place] [address] Care Team Providers Care Internet Marketing Executive Name Role Phone Brain Cyr DO Primary Care Provider Izabella Hartman APRN Unavailable [phone] Encounter Details Date Type Department Care Team (Late st Contact Info) Description 05/14/2023 Orders Only [facility] Department of Family Medicine [address] [place] [phone] Brain Cyr DO Elevated PSA (Primary Dx); Essential hypertension; Hypertensive heart disease without heart failure; Noncompliance; Obstructive sleep apnea syndrome; Primary osteoarthritis involving multiple joints Social History Tobacco Use Types Packs/Day Years Used Date Smoking Tobacco: Some Days Cigarettes Last attempted to quit: 1997 Smokeless Tobacco: Never Alcohol Use Standard Drinks/Week Comments Yes 0 (1 standard drink = 0.6 oz pur e alcohol) Social Overall Financial Resource Strain (CARDIA) Answe r Date Recorded How hard is it for you to pa y for the very basics like food, housing, medical care, and heating? Not hard at all 04/10/2023 PHQ-2 Answer Date Recorded Patient Health Questionnaire-2 Score 0 04/10/2023 Diaper Assistance Answer Date Recorded Are you [...] Orientation Straight 05/20/2024 8: 11 AM EST COVID-19 Exposure Response Date Recorded In the last 10 days, have yo u been in contact with someone who was confirmed or suspected to have Coronavirus/COVID-19? No / Unsure 05/14/2023 8:51 AM EST documented as of this encounter Plan of Treatment Not on file documented as of this encounter Visit Diagnoses Diagnosis Elevated PSA- Primary Elevated prostate specific antigen (PSA) Essential hypertension Unspecified essential hypertension Hypertensive heart disease without heart failure Unspecified hypertensive heart disease without heart failure Noncompliance Obstructive sleep apnea syndrome Obstructive sleep apnea (adult) (pediatric) Primary osteoarthritis involving multiple joints documented in this encounter Care Teams Internet Marketing Executive Relationship Specialty Start Date End Date Brain Cyr DO PCP - General 08/17/17 Izabella Francis APRN PCP - Insurance Payer PCP 06/01/23 documented as of this encounter
--- OUTSIDE RECORDS SUMMARY | 2025-02-13 10:42 | XMS_ITS | Encounter Summary ---
Author Organization [facility] Address [address] [place] [address] Care Team Providers Care Reimbursement Coordinator Name Role Phone Brain Cyr Primary Care Provider [phone] Norma Rogel RN Unavailable Unavailable Encounter Details Date Type Department Care Team (Late st Contact Info) Description 01/19/2024 Refill [facility] [address] [phone] Jed Pinon MD [address] [place] [address] [place] [address] Closed fracture of right ankle with routine healing, subsequent encounter Social History Tobacco Use Types Packs/Day Years [...] as of this encounter Visit Diagnoses Diagnosis Closed fracture of right ankle with routine healing, subsequent encounter documented in this encounter Care Teams Reimbursement Coordinator Relationship Specialty Start Date End Date Brain Cyr DO PCP - General 07/14/18 Norma Rogel, RN [place] Registered Nurse 07/14/18 documented as of this encounter
--- OUTSIDE RECORDS SUMMARY | 2025-02-13 10:42 | XMS_ITS | Encounter Summary ---
Author Organization [facility] Address [address] [place] [address] Care Team Providers Care Painting Trades Worker Name Role Phone Brain Cyr DO Primary Care Provider [phone] Norma Rogel RN Unavailable Unavailable Encounter Details Date Type Department Care Team (Late st Contact Info) Description 10/22/2023 Refill [facility] [address] [phone] Jed Pinon MD [address] [place] [address] Social History Tobacco Use Types Packs/Day Years [...] on filedocumented in this encounter Care Teams Painting Trades Worker Relationship Specialty Start Date End Date Brain Cyr DO PCP - General 07/14/18 Norma Rogel, LONI [place] Registered Nurse 07/14/18 documented as of this encounter
--- OUTSIDE RECORDS SUMMARY | 2025-02-13 10:42 | XMS_ITS | Clinical Summary ---
Author Organization [facility] Address [address] [place] [address] Care Team Providers Care Hematologist Oncologist Name Role Phone JoeBrain roberts Primary Care Provider [phone] Norma Rogel RN Unavailable Unavailable Allergies No known active allergies Medications olmesartan (BENICAR) 40 MG tablet Take 1 tablet (40 mg total) by mouth daily. Active carvedilol (COREG) 25 MG tablet Take 2 tablets (50 mg total) by mouth 2 (two) times a day with meals. Take day of surgery Active amLODIPine (NORVASC) 10 MG tablet Take 1 tablet (10 mg total) by mouth daily. Active hydrochlorothia zide (MICROZIDE) 12.5 MG capsule Take 1 capsule (12.5 mg total) by mouth daily. Active OMEprazole (PriLOSEC) 20 MG capsule Take 1 capsule (20 mg total) by mouth every morning before breakfast. Active fexofenadine (CRISELDA) 180 MG tablet Take 1 tablet (180 mg total) by mouth daily. Active Ascorbic Acid (VITAMIN C) 1000 MG tablet Take 1 tablet (1,000 mg total) by mouth daily. Active Vitamin D3 (CHOLECALICEROL ) 2000 units tablet Take 1 tablet (2,000 Units total) by mouth daily. Active methocarbamol (ROBAXIN) 750 MG tablet Take 1 tablet (750 mg total) by mouth 2 (two) times a day as needed for muscle spasms. 01/08/2025 Active naproxen (NAPROSYN) 500 MG tablet Take 1 tablet (500 mg total) by mouth 2 times daily (every 12 hours) as needed for mild pain or moderate pain. 01/08/2025 Active predniSONE (DELTASONE) 20 MG tablet Take 1 tablet (20 mg total) by mouth 2 (two) times a day. 01/08/2025 Active Active Problems Problem Noted Date Diagnosed Date Cervical stenosis of spine 01/09/2025 Morbid obesity due to excess calories 01/09/2025 Osteoarthritis of right ankle and foot 4 Hx of adenomatous polyp of colon 08/05/2023 History of Arita's esophagus 08/05/2023 Closed fracture of right ankle with routine heal ing 01/02/2023 Osteoarthritis of knee 05/12/2019 Hip pain, chronic, right 08/18/2018 Anxiety 08/10/2018 GERD (gastroesophageal reflux disease) 9 HTN (hypertension) 07/15/2018 Environmental allergies 07/15/2018 Sleep apnea 06/01/2008 Overview (07/15/2018): compliant with CPAP, doesn't follow up with any specialist Resolved Problems Problem Noted Date Diagnosed Date Resolved Date Colon cancer screening 08/05/202309/06 Encounters Date Type Department Care Team Description 01/09/2025 1:54 PM EDT - 01/10/2025 4:58 PM EDT Hospital Encounter [facility] [address] [place] [id number] Alex Brar MD Lu, Hairong, MD Cervical spinal stenosis (Primary Dx); Anxiety; Secondary hypertension ; Morbid obesity due to excess calories (HCC); Obstructive sleep apnea syndrome Discharge Disposition: Home with Health Care Services 01/09/2025 Travel from Last 3 Months Immunizations Immunization Administration Dates Next Due Influenza, Unspecified 04/01/2019 Family History Medical History Relation Name Comments Arthritis Brother 1 No Known Problems Brother 2 Arthritis Father Heart disease Father Cancer Mother stomach No Known Problems Sister Relation Name Status Comments Brother 1 Alive Brother 2 Alive Father Mother Sister Alive Social History Tobacco Use Types Packs/Day Years Used Date Smoking Tobacco: Former Cigarettes 1 10 0 07/14/1989 - 07/14/1999 Smokeless Tobacco: Never Alcohol Use Standard Drinks/Week Comments Yes 14 (1 standard drink = 0.6 oz pure alcohol) 2 vy, 2 shots liquor nightly, will stop pre op . Last drink 6 days ago. [facility] Utilities Answer Date Recorded In the past 12 months has th e [employer], gas, oil, or water company threatened to shut off services in your home? No 01/10/2025 AUDIT-C Answer Date Recorded Q1: How often do you have a drink containing alcohol? 4 or more times a week 01/10/2025 Q2: How many drinks containi ng alcohol do you have on a typical day when you are drinking? 3 or 4 Q3: How often do you have si x or more drinks on one occasion? Daily or almost daily 01/10/2025 Overall Financial Resource Strain (CARDIA) Answe r Date Recorded How hard is it for you to pa y for the very basics like food, housing, medical care, and heating? Not very hard 01/10/2025 Hunger Vital Sign Answer Date Recorded Within the past 12 months, y ou worried that your food would run out before you got the money to buy more. Never true 01/11/20 25 Within the past 12 months, t he food you bought just didn't last and you didn't have money to get more. Never true 01/10/2025 PRAPARE - Transportation Answer Date Re corded In the past 12 months, has l ack of transportation kept you from medical appointments or from getting medications? No 12/30 In the past 12 months, has l ack of transportation kept you from meetings, work, or from getting things needed for daily living? No 01/10/2025 Housing Stability Vital Sign Answer Stoney e Recorded In the last 12 months, was t here a time when you were not able to pay the mortgage or rent on time? No 01/10/2025 In the past 12 months, how m any times have you moved where you were living? 0 01/10/2025 At any time in the past 12 m [facility], were you homeless or living in a alf (including now)? No 01/10/2025 Sex and Gender Information Value Date Recorded Sex Assigned at Male 05/31/2024 9:05 AM EST Legal Sex Male 2:17 PM EDT Gender Identity Male 05/31/2024 9:05 AM EST Sexual Orientation Heterosexual (straight) 05/31 9:05 AM EST Last Filed Vital Signs Vital Sign Reading Time Taken Comments Blood Pressure 122/59 01/10/2025 3:59 PM EDT Pulse 57 01/10/2025 3:59 PM EDT Temperature 37.4 C (99.4 F) 01/10/2025 3:59 PM EDT Respiratory Rate 16 01/10/2025 3:59 PM EDT Oxygen Saturation 96% 01/10/2025 3:59 PM EDT Inhaled Oxygen Concentration - - Weight 103 kg (226 lb 3.1 oz) 01/09/2025 1:13 PM EDT Height 162.6 cm (5' 4.02 ) 01/10/2025 12:00 AM E DT Body Mass Index 38.81 01/09/2025 1:13 PM EDT Plan of Treatment Health Maintenance Due Date Last Done Comments Hepatitis C Virus Screening 1961 HIV Screening 1974 DTaP/Tdap/Td Vaccines (1 - Tdap) 1980 Pneumococcal Vaccines 50+ (1 of 1 - PCV) 12/15/2011 Zoster (Shingles) Vaccine (1 of 2) 12/15/2011 RSV Vaccine 60 years and older and Patients (1 - Risk 60-74 years 1-dose series) 2021 Influenza Vaccine 12/30/2024 04/26/2019, , 07/14/2017, Additional history exists COVID-19 Vaccine ( - season) 2025 Colonoscopy 11/25/2033 11/26/2023 Hepatitis B Vaccines Aged Out No long er eligible based on patient's age to complete this topic Medical Devices Implanted Type Area Java Lead Developer Device Identifier Shelf Expiration Date Model / Serial / Lot [id number] [employer] R 40gm Grn - [id number] Implanted:Qty : 2 on 05/12/2019 by Reagan Deleon MD at [facility] Cement Right: Knee [employer] 07/29/2022 [id number] / / [id number] Shell Acetabular 54mm Hip Prim Ch Trlg Sterl - [id number] Implanted:Qty : 1 on 08/18/2018 by Reagan Deleon MD at [facility] Joint Prosthesis Right: Hip [employer] [id number] 05/31/2028 [id number] / / [id number] Liner Acetabular Trlg Std Neutral 6.3mm 50/52/54mm 32mm - [id number] Implanted:Qty : 1 on 08/18/2018 by Reagan Deleon MD at [facility] Joint Prosthesis Right: Hip [employer] [id number] 02/28/2023 [id number] / / [id number] Stem Femoral 124mm 12.5mm Prim Zm M/L Taper Tiv Por 14 50 - [id number] Implanted:Qty : 1 on 08/18/2018 by Reagan Deleon MD at [facility] Joint Prosthesis Right: Hip [employer] [id number] 02/29/2028 [id number] / / [id number] Head Femoral 0mm /14 Taper 32mm Hip Blx D Trlg It Contin - [id number] Implanted:Qty : 1 on 08/18/2018 by Reagan Deleon MD at [facility] Joint Prosthesis Right: Hip [employer] [id number] 02/29/2028 [id number] / / [id number] Restrictor Bncmnt 25mm Ace 16-21mm Hip Femoral Plug Sterl - [id number] Implanted:Qty : 1 on 05/12/2019 by Reagan Deleon MD at [facility] Joint Prosthesis Right: Knee [employer] [id number] 03/08/2029 [id number] / / [id number] Component Femoral 8 Std Knee Right Crcte Rtn Cmnt Persona - [id number] Implanted:Qty : 1 on 05/12/2019 by Reagan Deleon MD at [facility] Joint Prosthesis Right: Knee [employer] [id number] 02/28/2029 [id number] / / [id number] Component Patellar 35mm Persona Alply Knee Lf - [id number] Implanted:Qty : 1 on 05/12/2019 by Reagan Deleon MD at [facility] Joint Prosthesis Right: Knee [employer] [id number] 10/29/2026 [id number] / / [id number] Baseplate Tibial Persona Ntr Tibia 5d F Knee Right Stem - [id number] Implanted:Qty : 1 on 05/12/2019 by Reagan Deleon MD at [facility] Joint Prosthesis Right: Knee [employer] [id number] 11/28/2028 [id number] / / [id number] Insert Articular 3-11 E-F 11mm Knee Right Crcte Rtn Polyethe - [id number] Implanted:Qty : 1 on 05/12/2019 by Reagan Deloen MD at [facility] Joint Prosthesis Right: Knee [employer] [id number] 11/28/2026 [id number] / / [id number] Screw Bone Acetabular Jarvis Trlg 40mm 6.5mm Slftp Sterl - [id number] Implanted:Qty : 1 on 08/18/2018 by Reagan Deleon MD at [facility] Screw Right: Hip [employer] [id number] 05/31/2028 [id number] / / [id number] Procedures Procedure Name Priority Date/Time Associated Diagnosis Comments XR CERVICAL SPINE 2 OR 3 VIEWS STAT 01/09/2025 9:43 PM EDT MRI CERVICAL SPINE W/O CONTRAST STAT 01/09/2025 7:[address] CERVICAL SPINE W/O CONTRAST STAT 01/09/2025 3:33 PM EDT MAGNESIUM STAT 01/09/2025 2:56 PM EDT COMPREHENSIVE METABOLIC PANEL STAT 01/09/2025 2:56 PM EDT COMPLETE BLOOD COUNT, WITH DIFFERENTIAL STAT 01/09/2025 2:56 PM EDT LYME IGG AND IGM WITH REFLEX TO ISABELLE STAT 01/09/2025 2:53 PM EDT HX GASTROENTEROLOGY COLONOSCOPY-SCAN 11/26/2023 11:14 AM EDT from Last 3 Months or Most Recently Relevant to Health Maintenance Results * XR Cervical spine 2 or 3 views (01/09/2025 9:43 PM EDT) Anatomical Region Laterality Modality C-spine Computed Radiogr aphy 01/09/2025 10:1 9 PM EDT Impressions 01/09/2025 10:22 PM EDT 1. Postoperative changes. 2. Mild grade I anterolisthesis of C3 on C4. Narrative 01/09/2025 10:22 PM EDT EXAM: XR CERVICAL SPINE 2 OR 3 VIEWS on 01/09/2025 9:33 PM CLINICAL HISTORY: Neck pain. COMPARISONS: Same-day CT and MRI cervical spine TECHNIQUE: AP and lateral radiographs of the cervical spine. FINDINGS: Postoperative changes including anterior approach fixation at C4-5 and C5-6. There is 2-3 mm anterolisthesis of C3 on C4. The vertebral body heights are maintained. There is disc height loss/discectomy changes at C4-5 and C5-6. The visualized soft tissues are unremarkable. Procedure Note Nitesh Friend MD - 01/09/2025 EXAM: XR CERVICAL SPINE 2 OR 3 VIEWS on 01/09/2025 9:33 PM CLINICAL HISTORY: Neck pain. COMPARISONS: Same-day CT and MRI cervical spine TECHNIQUE: AP and lateral radiographs of the cervical spine. FINDINGS: Postoperative changes including anterior approach fixation at C4-5 andC5-6. There is 2-3 mm anterolisthesis of C3 on C4. The vertebral bodyheights are maintained. There is disc height loss/discectomy changes atC4-5 and C5-6. The visualized soft tissues are unremarkable. IMPRESSION: 1. Postoperative changes. 2. Mild grade I anterolisthesis of C3 on C4. us Izabella MARIEE IMG DIAGNOSTIC IMAGING ORDE RICHARD Final Result * MRI Cervical spine w/o contrast (01/09/2025 7:50 PM EDT) Anatomical Region Laterality Modality C-spine Magnetic Resonan ce 01/09/2025 8:48 PM EDT Addenda Addendum by Nitesh Friend MD on 01/09/2025 9:03 PM EDT Critical findings were discussed by Dr. Friend with Dr. Bazzi on 01/09/2025 at 09:03 PM. Understanding of critical result was confirmed. Impressions 01/09/2025 8:57 PM EDT 1. Multifactorial severe spinal canal stenosis at C3-4, with evidence of cord impingement and cord signal abnormality. Recommend surgical consultation. 2. Small curvilinear signal abnormality at the right hemicord level of C4-5 may be chronic. 3. Severe multilevel neural foraminal stenosis. A Critical finding has been communicated to Radiology Classer for provider notification via the [employer] Findings Application on 01/09/2025 8:57 PM, Message ID [id number]. Narrative 01/09/2025 8:57 PM EDT EXAM: MRI CERVICAL SPINE W/O CONTRAST on 01/09/2025 7:24 PM CLINICAL HISTORY: CT scan showing c2-c3 demonstrates multifactorial severe right-sided neuroforaminal narrowing. Tingling of finger tips bilaterally. Lower extremity weakness. COMPARISONS: CT cervical spine dated 01/09/2025 TECHNIQUE: Multiplanar multisequence magnetic resonance imaging of the cervical spine was performed without contrast. FINDINGS: Limitations: Mild motion artifact. Status post anterior cervical discectomy and fusion at C4-C6. There is 3 mm anterolisthesis of C3 on C4. The vertebral body heights are within normal limits. The visualized posterior fossa and craniocervical junction are intact. There is hazy spinal cord T2 hyperintensity at C3-C4 and curvilinear T2 hyperintensity at the right hemicord level of C5. There is no prevertebral soft tissue swelling. The visualized paraspinal soft tissues are otherwise unremarkable. The following axial levels are detailed below: C2-C3: No significant posterior disc disease or spinal canal stenosis. There is severe bilateral neural foraminal stenosis. C3-C4: There is a 5 mm AP posterior disc herniation and ligamentum flavum buckling contributing to severe spinal canal stenosis with some degree of cord impingement. There is associated T2 hyperintense cord signal abnormality. Severe bilateral neural foraminal stenosis is present. C4-C5: No significant posterior disc disease. The spinal canal is mildly stenosed. There is severe bilateral neural foraminal stenosis. C5-C6: No significant posterior disc disease. The spinal canal is mildly stenosed. There is severe bilateral neural foraminal stenosis. C6-C7: Trace posterior disc osteophyte complex. Mild spinal canal stenosis. Severe bilateral neural foraminal stenosis. C7-T1: Small posterior disc herniation. No significant spinal canal stenosis. No significant neural foraminal stenosis. Procedure Note Nitesh Friend MD - 01/09/2025 EXAM: MRI CERVICAL SPINE W/O CONTRAST on 01/09/2025 7:24 PM CLINICAL HISTORY: CT scan showing c2-c3 demonstrates multifactorial severe right- sidedneuroforaminal narrowing. Tingling of finger tips bilaterally. Lowerextremity weakness. COMPARISONS: CT cervical spine dated 01/09/2025 TECHNIQUE: Multiplanar multisequence magnetic resonance imaging of the cervical spinewas performed without contrast. FINDINGS: Limitations: Mild motion artifact. Status post anterior cervical discectomy and fusion at C4-C6. There is 3mm anterolisthesis of C3 on C4. The vertebral body heights are withinnormal limits. The visualized posterior fossa and craniocervical junctionare intact. There is hazy spinal cord T2 hyperintensity at C3-C4 and curvilinear T2 hyperintensity at the righthemicord level of C5. There is no prevertebral soft tissue swelling. Thevisualized paraspinal soft tissues are otherwise unremarkable. The following axial levels are detailed below: C2-C3: No significant posterior disc disease or spinal canal stenosis.There is severe bilateral neural foraminal stenosis. C3-C4: There is a 5 mm AP posterior disc herniation and ligamentum flavumbuckling contributing to severe spinal canal stenosis with some degree ofcord impingement. There is associated T2 hyperintense cord signalabnormality. Severe bilateral neural foraminal stenosis is present. C4-C5: No significant posterior disc disease. The spinal canal is mildlystenosed. There is severe bilateral neural foraminal stenosis. C5-C6: No significant posterior disc disease. The spinal canal is mildlystenosed. There is severe bilateral neural foraminal stenosis. C6-C7: Trace posterior disc osteophyte complex. Mild spinal canalstenosis. Severe bilateral neural foraminal stenosis. C7-T1: Small posterior disc herniation. No significant spinal canalstenosis. No significant neural foraminal stenosis. IMPRESSION: 1. Multifactorial severe spinal canal stenosis at C3-4, with evidence ofcord impingement and cord signal abnormality. Recommend surgicalconsultation. 2. Small curvilinear signal abnormality at the right hemicord level ofC4-5 may be chronic. 3. Severe multilevel neural foraminal stenosis. A Critical finding has been communicated to Radiology Classer forprovider notification via the [employer] Actionable FindingsApplication on 01/09/2025 8:57 PM, Message ID [id number]. us Alex Brar MD IMG MRI ORDERABLES Edited R esult - Final * CT Cervical spine w/o contrast (01/09/2025 3:33 PM EDT) Anatomical Region Laterality Modality C-spine Computed Tomogra phy 01/09/2025 3:38 PM EDT Impressions 01/09/2025 3:53 PM EDT 1. Patient is status post C4-C6 anterior cervical fusion. 2. At the C4-C5 level 5 mm retrolisthesis of C4 over C5 results in moderate spinal canal stenosis. 3. C2-C3 demonstrates multifactorial severe right-sided neuroforaminal narrowing. 4. Multilevel degenerative changes as described above. 5. For further evaluation of the cervical cord, and exiting nerve roots consider MRI of the cervical spine without contrast. Narrative 01/09/2025 3:53 PM EDT EXAM: CT CERVICAL SPINE W/O CONTRAST on 01/09/2025 3:09 PM CLINICAL HISTORY: numbness finger tips. COMPARISONS: None TECHNIQUE: Multidetector helical noncontrast CT images of the cervical spine were performed utilizing automatic exposure control. Multiplanar images were reconstructed and reviewed. FINDINGS: No acute fracture is seen. Straightening of the normal cervical lordosis. Patient is status post ACDF from C4 to C6. Normal atlantoaxial articulation. 5 mm retrolisthesis of C4 over C5. Prevertebral soft tissues appear normal. Lung apices are clear. Specific [id number]: C2-C3: No spinal canal stenosis. Severe facet arthropathy, and uncovertebral joint hypertrophy resulting in moderate to severe right, moderate left neuroforaminal narrowing C3-C4: Mild spinal canal stenosis. Facet arthropathy and uncovertebral joint hypertrophy results in moderate bilateral neural foraminal narrowing. C4-C5: Retrolisthesis of C4 over C5 results in at least moderate spinal canal stenosis. Neuroforamina appear patent. C5-C6: No canal stenosis. Facet arthropathy and uncovertebral joint hypertrophy results in mild bilateral neural foraminal narrowing. C6-C7: No spinal canal stenosis or neural foraminal narrowing. C7-T1: No spinal canal stenosis or neural foraminal narrowing. Procedure Note Bryson Turcios MD - 01/09/2025 EXAM: CT CERVICAL SPINE W/O CONTRAST on 01/09/2025 3:09 PM CLINICAL HISTORY: numbness finger tips. COMPARISONS: None TECHNIQUE: Multidetector helical noncontrast CT images of the cervicalspine were performed utilizing automatic exposure control. Multiplanarimages were reconstructed and reviewed. FINDINGS: No acute fracture is seen. Straightening of the normal cervical lordosis.Patient is status post ACDF from C4 to C6. Normal atlantoaxialarticulation. 5 mm retrolisthesis of C4 over C5. Prevertebral soft tissues appear normal. Lung apices are clear. Specific [id number]: C2-C3: No spinal canal stenosis. Severe facet arthropathy, anduncovertebral joint hypertrophy resulting in moderate to severe right,moderate left neuroforaminal narrowing C3-C4: Mild spinal canal stenosis. Facet arthropathy and uncovertebraljoint hypertrophy results in moderate bilateral neural foraminalnarrowing. C4-C5: Retrolisthesis of C4 over C5 results in at least moderate spinalcanal stenosis. Neuroforamina appear patent. C5-C6: No canal stenosis. Facet arthropathy and uncovertebral jointhypertrophy results in mild bilateral neural foraminal narrowing. C6-C7: No spinal canal stenosis or neural foraminal narrowing. C7-T1: No spinal canal stenosis or neural foraminal narrowing. IMPRESSION: 1. Patient is status post C4-C6 anterior cervical fusion. 2. At the C4-C5 level 5 mm retrolisthesis of C4 over C5 results inmoderate spinal canal stenosis. 3. C2-C3 demonstrates multifactorial severe right-sided neuroforaminalnarrowing. 4. Multilevel degenerative changes as described above. 5. For further evaluation of the cervical cord, and exiting nerve rootsconsider MRI of the cervical spine without contrast. Izabella MARIEE IMG CT ORDERABLES Final Res ult * (ABNORMAL) Complete Blood Count, with Differential (01/09/2025 2:56 PM EDT) White Blood Cell Count 11.1(H) 4.0 - 11.0 Thou/uL 01/09/2025 3:21 PM EDT [facility] Platelet Count 194 150 - 450 Thou/uL 01/09/2025 3:21 PM EDT [facility] Hemoglobin 14.8 13.0 - 17.7 g/dL 01/09/2025 3:21 PM EDT [facility] Hematocrit 40.8 39.0 - 54.0 % 01/09/2025 3:21 PM EDT [facility] Red Blood Cell Count 3.84(L) 4.50 - 6.20 Mil/uL 01/09/2025 3:21 PM EDT [facility] MCV 106(H) 80 - 100 fL 01/09/2025 3:21 PM EDT [facility] MCH 38.5(H) 27.0 - 31.0 pg 01/09/2025 3:21 PM EDT [facility] MCHC 36.3(H) 30.0 - 36.0 g/dL 01/09/2025 3:21 PM EDT [facility] RDW 13.1 11.5 - 14.5 % 01/09/2025 3:21 PM EDT [facility] MPV 10.4 7.5 - 12.5 fL 01/09/2025 3:21 PM EDT [facility] Neutrophils Auto 84.4 % 01/10/20 3:21 PM EDT [facility] Immature Granulocytes 1.3 % 01/09/2025 3:21 PM EDT [facility] Lymphocytes Auto 9.8 % 01/10/20 3:21 PM EDT [facility] Monocytes Auto 4.4 % 01/09/2025 3:21 PM EDT [facility] Eosinophils Auto 0.0 % 01/10/20 3:21 PM EDT [facility] Basophils Auto 0.1 % 01/09/2025 3:21 PM EDT [facility] Abs Neutrophils Auto 9.33(H) 2.00 - 7.50 Thou/uL 01/09/2025 3:21 PM EDT [facility] Abs Immature Granulocytes 0.14(H) 0.00 - 0.10 Thou/uL 01/09/2025 3:21 PM EDT [facility] Abs Lymphocytes Auto 1.08(L) 1.50 - 4.50 Thou/uL 01/09/2025 3:21 PM EDT [facility] Abs Monocytes Auto 0.49 0.20 - 1.50 Thou/uL 01/09/2025 3:21 PM EDT [facility] Abs Eosinophils Auto 0.00 0.00 - 0.70 Thou/uL 01/09/2025 3:21 PM EDT [facility] Abs Basophils Auto 0.01 0.00 - 0.20 Thou/uL 01/09/2025 3:21 PM EDT [facility] Blood Blood specimen / Unknown 01/09/2025 2:56 PM EDT 01/09/2025 3:17 PM EDT [employer] [facility] LAB BLOOD ORDERABLES Final Result [facility] [address] [place] [address], [place] [address] * Magnesium (01/09/2025 2:56 PM EDT) Magnesium 2.0 1.6 - 2.7 mg/dL 01/09/2025 3:47 PM EDT [facility] Blood Blood specimen / Unknown 01/09/2025 2:56 PM EDT 01/09/2025 3:17 PM EDT [facility] [facility] LAB BLOOD ORDERABLES Final Result [facility] [address] [place] [address], [place] [address] * (ABNORMAL) Comprehensive Metabolic Panel (01/09/2025 2:56 PM EDT) Glucose 235(H) 65 - 99 mg/dL 01/09/2025 3:47 PM EDT [facility] Comment:Fasting: <100 mg/dL, Non-Fasting: <200 mg/dL (ADA 2004) Blood Urea Nitrogen (BUN) 17 8 - 21 mg/dL 01/09/2025 3:47 PM EDT [facility] Creatinine 0.7 0.5 - 1.3 mg/dL 01/09/2025 3:47 PM EDT [facility] eGFR >90 >59 01/09/2025 3:47 PM EDT [facility] Comment:CKD-EPI (2020) in mL /min/1.73 sq meters. Sodium 144 136 - 145 mmol/L 01/09/2025 3:47 PM EDT [facility] Potassium 3.7 3.4 - 5.3 mmol/L 01/09/2025 3:47 PM EDT [facility] Chloride 104 98 - 107 mmol/L 01/09/2025 3:47 PM EDT [facility] CO2 22 22 - 33 mmol/L 01/09/2025 3:47 PM EDT [facility] Calcium 9.3 8.7 - 10.5 mg/dL 01/09/2025 3:47 PM EDT [facility] Alkaline Phosphatase 87 45 - 128 U/L 01/09/2025 3:47 PM EDT [facility] Aspartate Aminotrans (AST) 40 10 - 55 U/L 01/09/2025 3:47 PM EDT [facility] Comment:Specimen hemolyzed. Results may be artifactually elevated. Alanine Aminotrans (ALT) 32 10 - 55 U/L 01/09/2025 3:47 PM EDT [facility] Bilirubin, Total 0.5 0.2 - 1.0 mg/dL 01/09/2025 3:47 PM EDT [facility] Protein, Total 7.0 6.3 - 8.3 g/dL 01/09/2025 3:47 PM EDT [facility] Albumin 3.9 3.4 - 4.8 g/dL 01/09/2025 3:47 PM EDT [facility] BUN/Creatinine Ratio 24 10.0 - 25.0 Ratio 01/09/2025 3:47 PM EDT [facility] Globulin 3.1 1.5 - 3.9 g/dL 01/09/2025 3:47 PM EDT [facility] Albumin/Globulin Ratio 1.3 Ratio 01/09/2025 3:47 PM EDT [facility] Anion Gap 18(H) 7 - 17 01/09/2025 3:47 PM EDT [facility] Blood Blood specimen / Unknown 01/09/2025 2:56 PM EDT 01/09/2025 3:17 PM EDT [facility] [place] [facility] BLOOD ORDERABLES Final Result Performing Organization Address City/[facility]/ZIP Co de Phone Number [facility] [address] [place] [address], [facility] [address] [place] [address] * Lyme IgG/IgM with Reflex to ISABELLE (01/09/2025 2:53 PM EDT) Lyme IgG/IgM Antibody Screen Negative Negative 01/11/2025 10:42 AM EDT [facility] Comment: No antibodies to Borrelia burgdorferi detected. Consider alternative diagnosis. If the patient presents with signs/symptoms consistent with Lyme disease (B. burgdorferi) for <30 days, consider collecting and testing a second sample two to four weeks later. Blood Blood specimen / Unknown 01/09/2025 2:53 PM EDT 01/09/2025 3:17 PM EDT [place] [place] LAB BLOOD ORDERABLES Final Result [facility] [address] [place] [address], * HX GASTROENTEROLOGY COLONOSCOPY-SCAN (11/26/2023 11:14 AM EDT) Demetrius Gonzalez MD HX AMB PROCEDURES Final Resu lt from Last 3 Months or Most Recently Relevant to Health Maintenance Insurance [employer] INDIVIDUAL EXCH[employer] PPO [employer] [place] [phone] Advance Directives * Full Code (Latest Code Status on File) Date Activated Date Inactivated Comments 01/09/2025 10:55 PM * Full Code Date Activated Date Inactivated Comments 11/19/2021 6:09 AM 01/09/2025 1:03 PM * Full Code Date Activated Date Inactivated Comments 05/12/2019 3:31 PM 11/19/2021 5:45 AM * Full Code Date Activated Date Inactivated Comments 05/12/2019 9:23 AM 05/12/2019 3:31 PM * Full Code Date Activated Date Inactivated Comments 08/18/2018 3:19 PM 05/12/2019 9:17 AM Care Teams Hematologist Oncologist Relationship Specialty Start Date End Date Brain Cyr DO PCP - General 07/14/18 Norma Rogel, LONI [place] Registered Nurse 07/14/18
--- OUTSIDE RECORDS SUMMARY | 2025-02-13 10:42 | XMS_ITS | Clinical Summary ---
Author Organization [facility] Address [address] [place] [address] Care Team Providers Care Sushi Chef Name Role Phone Brain Cyr DO Primary Care Provider Izabella Hartman APRN Unavailable [phone] Allergies Active Allergy Reactions Criticality Noted Date Comments No Known Allergies 06/05/2014 Sertraline Other (see comments) 10/14/2017 Medications omeprazole (PriLOSEC) 40 mg capsule Take 40 mg by mouth daily. Active carvediloL (COREG) 25 mg tablet TAKE 2 TABLETS BY MOUTH TWICE DAILY WITH FOOD 360 tablet 3 4 Active ALPRAZolam (XANAX) 0.25 mg tablet 1/2 to 1 tablet po 1-3 x daily prn severe anxiety -do not use daily only for rescue severe anxiety 30 tablet 1 4 Active hydroCHLOROthi azide (MICROZIDE) capsule Take 1 capsule (12.5 mg total) by mouth in the morning. 90 capsule 3 4 Active olmesartan (BENICAR) 40 mg tablet TAKE 1 TABLET BY MOUTH EVERY MORNING 30 tablet 5 5 Active ascorbic acid, vitamin C, (VITAMIN C) 1,000 mg tablet Take 1,000 mg by mouth. Active amLODIPine (NORVASC) 10 mg tablet TAKE 1 TABLET BY MOUTH EVERY DAY 90 tablet 5 Active amLODIPine (NORVASC) 10 mg tablet take 1 tablet by mouth once daily 90 tablet 4 4 02/14/20 25 Discontinued Active Problems Problem Noted Date Diagnosed Date Obesity (BMI 30-39.9) 08/05/2024 Osteoarthritis of right ankle and foot 12/31/202 4 Elevated PSA 05/14/2023 Assessment & Plan (06/11/2023 [...] Vaccinations-consider flu- Covid-RSV- Shingrix x 2- TDap [id number] Colonoscopy-last 11-27-2023 with EGD Assessment & Plan (04/10/2023 7:59 AM EST): EKG-l See today [id number] < never obtained labs > still pending [...] 7:26 AM EDT): Collaborative care with rheumatology [facility] Assessment & Plan (01/19/2020 8:48 AM EDT): [facility] collaborative --- asymptomatic at present Will follow clinically Assessment & Plan (04/26/2019 9:11 AM EST): No sign of flare to date Assessment & Plan (02/15/2019 2:51 PM EDT): 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 Previously improved with prednisone Seen [facility] Rheumatology Assessment & Plan (06/09/2018 2:50 PM EST): Acute exacerbation swelling in both hands Previously improved with prednisone Seen [facility] Rheumatology Assessment & Plan (10/27/2017 10:39 AM EDT): Differential Dx discussed in detail including: rheumatoid arthritis vs other small joint symmetrical arthritides Referral to [facility] Rheumatology - Brynn YOUSIF Will taper Prednisone by 5 mg every 3 days until off Recheck in 1 month or sooner if any acute concern Assessment & Plan (10/21/2017 8:35 AM EDT): Again Differential Dx discussed, including: inflammatory arthritis (favoring RA vs other), infectious arthritis (Lyme's testing pending) vs other Continue Prednisone - day 3/10 and Doxycycline day 310 Will follow clinically Recheck on Thursday or [...] - awaiting MACK Coping - working with [facility] Assessment & Plan (11/08/2021 8:16 AM EDT): [...] Plan (04/26/2019 9:13 AM EST): Anticipating TKA 05-12 -19 See care everywhere Midlevel clearance Assessment [...] that has since failed -> referral to [facility] for new equipment Assessment & Plan (03/14/2024 9:00 AM EDT): Multiple attempts at upgrading PAP equipment and setting up repeat PAP assessment for known IKE Both scheduled for [facility] pulmonary and [facility] IKE Assessment & Plan (06/08/2023 12:22 PM EST): Patient has to set up appointment with [facility] ADMINISTRATIVE TECHNICIAN Assessment & Plan (05/14/2023 9:17 AM EST): AP use ---> continues albeit older equipment Patient has to set up appointment with [facility] MILITARY ADMINISTRATIVE TECHNICIAN Assessment & Plan (04/10/2023 7:19 AM EST): [...] - Will make referral to [facility]- pulmonary and continue with best effort [...] pur e alcohol) daily 4 servings daily [facility] Utilities Answer Date Recorded In the past 12 months has [employer], gas, oil, or water [place] threatened to shut off services in your [...] any time in the past 12 m [facility], were you homeless or living in a senior care (including now)? No 05/20/2024 Diaper Assistance Answer [...] 10/18/2022 9:10 AM EDT Plan of Treatment Health Maintenance Due Date Last Done Comments CT Colonography 1961 FIT-DNA (Cologuard) 1961 FIT 1961 FOBT 1961 Flex Sigmoidoscopy - 5y 1961 HIV Screening 1961 DTaP,Tdap,and Td Vaccines (1 - Tdap) 12/15/1979 Hepatitis C Screening 12/15/1979 Zoster Vaccines (1 of 2) 12/15/2011 Pneumococcal Vaccine, 50+ Years (2 of 2 - PPSV23) 04/17/2017 04/17/2016 COVID-19 Vaccine ( - season) 2025 Influenza Vaccine (#1) 2025 9, 04/01/2019, 07/14/2017, [...] Maintenance Results * Colonoscopy (07/22/2012) Colonoscopy completed Historical Provider MD HEALTH MAINTENANCE Final Result from Last 3 Months or Most Recently Relevant to Health Maintenance Insurance [facility] HEALTH INSURANCE EXCHANGE - GROUP Care Teams Sushi Chef Relationship Specialty Start Date End Date Brain Cyr DO PCP - General 08/17/17 Izabella Francis APRN PCP - Insurance Payer PCP 06/01/23
--- OUTSIDE RECORDS SUMMARY | 2025-02-13 10:42 | XMS_ITS | Encounter Summary ---
Author Organization [facility] Address [address] [place] [address] Care Team Providers Care Stock Parts Fabricator Name Role Phone Jenn Hu MD Primary Care Provider [phone] Encounter Details Date Type Department Care Team (Late st Contact Info) Description 02/03/2025 Lab Requisition [facility] - Main Lab [address] [facility] [place] [address] Jenn Hu MD [address] [place] [address] Vitamin D deficiency, unspecified; Cervicalgia; Weakness; Essential [...] Unspecified essential hypertension documented in this encounter Additional Health Concerns Infection Onset Date Last Indicated Resolved Time Respiratory Rule-Out 02/06/2025 02/07/2025 025 1:47 AM EDT COVID-19 Rule-Out 02/06/2025 02/07/2025 02/07/2025 1:47 AM EDT documented as of this encounter Care Teams Stock Parts Fabricator Relationship Specialty Start Date End Date Jenn Hu MD [address] [place] [address] [address] [place] [address] PCP - General Geriatric Medicine 02/01/25 documented as of this encounter
--- OUTSIDE RECORDS SUMMARY | 2025-02-13 10:42 | XMS_ITS | Encounter Summary ---
Author Organization [facility] Address [address] [place] [address] Care Team Providers Care Wire Bender Name Role Phone Brain Cyr Primary Care Provider [phone] Norma Rogel RN Unavailable Unavailable Encounter Details Date Type Department Care Team (Late st Contact Info) Description 11/26/2023 Scanned Document [facility] [address] [address] Demetrius Gonzalez MD [address] [facility] [address] [place], [place] [id number] Social History Tobacco Use Types Packs/Day Years [...] Procedure Name Priority Date/Time Associated Diagnosis Comments HX GASTROENTEROLOGY UPPER ENDOSCOPY-SCAN 11/26/2023 11:15 AM EDT HX GASTROENTEROLOGY COLONOSCOPY-SCAN 11/26/2023 11:14 AM EDT documented in this encounter Results * HX GASTROENTEROLOGY UPPER ENDOSCOPY-SCAN (11/26/2023 11:15 AM EDT) us Demetrius Gonzalez MD HX AMB PROCEDURES Final Resu lt * HX GASTROENTEROLOGY COLONOSCOPY-SCAN (11/26/2023 11:14 AM EDT) us Demetrius Gonzalez MD HX AMB PROCEDURES Final Resu lt documented in this encounter Visit Diagnoses Not on filedocumented in this encounter Care Teams Wire Bender Relationship Specialty Start Date End Date Brain Cyr DO PCP - General 07/14/18 Norma Rogel, LONI CT Registered Nurse 07/14/18 documented as of this encounter
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
--- OUTSIDE RECORDS SUMMARY | 2025-02-13 10:42 | XMS_ITS | Clinical Summary ---
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 Active tamsulosin (FLOMAX) 0.4 mg 24 hr capsule Take 1 capsule (0.4 mg total) by mouth at bedtime. Capsules should be taken 30 minutes following the same meal each day. 30 each 5 03/10/20 25 Active apixaban (ELIQUIS) 5 mg tabletIndicatio ns:Deep vein thrombosis (DVT) of other vein of lower extremity, unspecified chronicity, unspecified laterality (CMS/HCC V24, CMS/HCC V28) Take 2 tablets (10 mg total) by mouth 2 (two) times a day for 6 days, THEN 1 tablet (5 mg total) 2 (two) times a day. 84 each 5 03/16/20 25 Active amLODIPine (NORVASC) 10 mg tablet Take 1 tablet (10 mg total) by mouth 1 (one) time each day. 02/05/20 25 Discontinu ed(Entered in Error) carvediloL (COREG) 25 mg tablet Take 1 tablet (25 mg total) by mouth 2 (two) times a day with meals. 02/05/20 25 Discontinu ed(Entered in Error) fexofenadine (CRISELDA) 180 mg tablet Take 1 tablet (180 mg total) by mouth 1 (one) time each day. 02/05/20 Discontinu ed(Entered in Error) methocarbamoL (ROBAXIN) 750 mg tablet Take 1 tablet (750 mg total) by mouth 2 (two) times a day if needed for muscle spasms. 02/05/20 Discontinu ed(Entered in Error) naproxen (NAPROSYN) 500 mg tablet Take 1 tablet (500 mg total) by mouth 2 (two) times a day if needed for mild pain or moderate pain. 02/05/20 Discontinu ed(Entered in Error) olmesartan (BENICAR) 40 mg tablet Take 1 tablet (40 mg total) by mouth 1 (one) time each day. 02/05/20 Discontinu ed(Entered in Error) omeprazole (PriLOSEC) [address] capsule Take 1 capsule (20 mg total) by mouth 1 (one) time each day. Do not crush or chew. 02/05/20 Discontinu ed(Entered in Error) ascorbic acid (VITAMIN C) 1,000 mg tablet Take 1 tablet (1,000 mg total) by mouth 1 (one) time each day. 02/05/20 Discontinu ed(Entered in Error) cholecalciferol (VITAMIN D-3) 50 mcg (2,000 unit) tablet Take 1 tablet (2,000 Units total) by mouth 1 (one) time each day. 02/05/20 Discontinu ed(Entered in Error) predniSONE (DELTASONE) 20 mg tablet Take 1 tablet (20 mg total) by mouth 2 times daily. 02/05/20 Discontinu ed(Entered in Error) oxyCODONE-aceta minophen (PERCOCET) 5-325 mg per tabletIndicatio ns:Neck pain Take 1 tablet by mouth every 6 (six) hours if needed for severe pain for up to 3 days. Max Daily Amount: 4 tablets 12 tablet 5 02/05/20 Discontinu ed(Entered in Error) traMADoL (ULTRAM) 50 mg tabletIndicatio ns:Deep vein thrombosis (DVT) of other vein of lower extremity, unspecified chronicity, unspecified laterality (CMS/[facility] V24, CMS/HCC V28) Take 1 tablet (50 mg total) by mouth every 12 (twelve) hours if needed for severe pain for up to 3 days. Max Daily Amount: 100 mg 02/12/20 25 Active Problems Problem Noted Date Diagnosed Date Lower extremity edema 02/05/2025 Urinary retention 02/04/2025 Encounters Date Type Department Care Team Description 02/12/2025 Lab Requisition [facility] [address] [place] [phone] Jenn Hu MD Vitamin D deficiency, unspecified; Cervicalgia; Weakness; Essential (primary) hypertension 02/10/2025 Lab Requisition [facility] [address] [place] [phone] Jenn Hu MD Urinary tract infection, site not specified 02/08/2025 Telephone [facility] Hematology Oncology [address] [place] [phone] Yon Delacruz MD 02/05/2025 Lab Requisition [facility] [address] [place] [address] Jenn Hu MD Chronic kidney disease, unspecified 02/04/2025 3:15 PM EDT - 02/09/2025 1:23 PM EDT Hospital Encounter [facility] Urology Unit [address] [place] [phone] Frances Edward MD Wyman, Tim, MD Ishtiaq, Rizwan, MD Alam, Aroosa, MD Nasser, Nada S, MD Kela, Kashyap Devendrabhai, MD Lower extremity edema (Primary Dx); Positive D dimer; Urinary retention; Deep vein thrombosis (DVT) of other vein of lower extremity, unspecified chronicity, unspecified laterality ([facility] V24, [facility] V28) Discharge Disposition: Senior Living Facility 02/04/2025 Lab Requisition [facility] [address] [place] [address] Jenn Hu MD Chronic kidney disease, unspecified 02/03/2025 Lab Requisition [facility] [address] [place] [address] Jenn Hu MD Vitamin D deficiency, unspecified; Cervicalgia; Weakness; Essential (primary) hypertension 02/01/2025 Lab Requisition [facility] [address] [place] [address] Jenn Hu MD Essential (primary) hypertension 01/28/2025 4:40 AM EDT - 01/31/2025 4:18 PM EDT Emergency [facility] Emergency [address] [place] [phone] Augustin Henriquez MD Muhoozi, Bannet, MD Mersier, Jasmine, DO Damri, Kevin Nicholas, MD Ziebro, John, MD Notash, MD Jayden Hospital admission due to social situation (Primary Dx); Neck pain Discharge Disposition: Rehab Facility from Last 3 Months Social History Tobacco Use Types Packs/Day Years [...] file Not on file Not on file Obstetrics History Last Filed Vital Signs Vital Sign Reading [...] Mass Index 37.57 02/07/2025 10:37 AM EDT Plan of Treatment Health Maintenance Due Date Last Done Comments DTaP,Tdap,and Td Vaccines (1 - Tdap) 1980 Zoster Vaccines (1 of 2) 12/15/2011 Pneumococcal Vaccine: 50+ Years (2 of 2 - PPSV23) 06/12/2016 04/17/2016 Depression Screening 06/01/2024 Cholesterol Screening (Lipid Panel) 01/27/2025 Colorectal Cancer Screening: Colonoscopy 01/27/2025 HIV Screening 01/27/2025 Hepatitis C Screening 01/27/2025 Social Influencers of Health Screening 01/27/2025 COVID-19 Vaccine ( season) 2025 Influenza Vaccine (#1) 2025 9, 04/01/2019, 07/14/2017, Additional history exists Hypertension/CHF/CAD Annual BMP Blood Test 02/10/2026 02/10/2025, 02/08/2025, 02/07/2025, Additional history exists RSV Immunization Adult Patients (1 - 1-dose 75+ series) 2036 HIB Vaccines Aged Out No longer eligi ble based on patient's age to complete this topic HPV Vaccines Aged Out No longer eligi ble based on patient's age to complete this topic Hepatitis A Vaccines Aged Out No long er eligible based on patient's age to complete this topic Hepatitis B Vaccines Aged Out No long er eligible based on patient's age to complete this topic IPV Vaccines Aged Out No longer eligi ble based on patient's age to complete this topic MMR Vaccines Aged Out No longer eligi ble based on patient's age to complete this topic Meningococcal ACWY Vaccine Aged Out N o longer eligible based on patient's age to complete this topic Meningococcal B Vaccine Aged Out No l onger eligible based on patient's age to complete this topic RSV Immunization Patients Under 20 months Aged Out No longer eligible based on patient's age to complete this topic Varicella Vaccines Aged Out No longer eligible based on patient's age to complete this topic Procedures Procedure Name Priority Date/Time Associated Diagnosis Comments CBC WITH AUTO DIFFERENTIAL Routine 02/10/2025 6:59 AM EDT Urinary tract infection, site not specified VITAMIN B12 AND FOLATE Routine 02/10/2025 6:59 AM EDT Urinary tract infection, site not specified THYROID STIMULATING HORMONE Routine 02/10/2025 6:59 AM EDT Urinary tract infection, site not specified BASIC METABOLIC PANEL Routine 02/10/2025 6:59 AM EDT Urinary tract infection, site not specified CBC AND DIFFERENTIAL Routine 02/10/2025 6:59 AM EDT Urinary tract infection, site not specified ECG OUTSIDE 02/10/2025 OXYGEN THERAPY, ADULT Routine 02/08/2025 8:02 AM EDT PEP THERAPY Routine 02/08/2025 6:01 AM EDT BASIC METABOLIC PANEL Add-On 02/08/2025 5:31 AM EDT PHOSPHORUS Add-On 02/08/2025 5:31 AM EDT MAGNESIUM Add-On 02/08/2025 5:31 AM EDT C-REACTIVE PROTEIN Routine 02/08/2025 5: 31 AM EDT CBC WITH AUTO DIFFERENTIAL Add-On 02/08/2025 5:30 AM EDT CBC AND DIFFERENTIAL Add-On 02/08/2025 5:30 AM EDT D-DIMER Routine 02/08/2025 5:30 AM EDT COMPLETE BLOOD COUNT Timed 02/08/2025 5:30 AM EDT CPAP NIV Routine [...] THERAPY, ADULT Routine 02/07/2025 8:02 AM EDT VITAMIN B12 Routine 02/07/2025 6:31 AM EDT PROSTATE SPECIFIC ANTIGEN DIAGNOSTIC Routine 02/07/2025 6:31 AM EDT TROPONIN I HIGH SENSITIVITY Routine 02/07/2025 6:31 AM EDT D-DIMER Routine 02/07/2025 6:31 AM EDT THYROID STIMULATING HORMONE WITH REFLEX TO FREE T4 AND FREE T3 Routine 02/07/2025 6:31 AM EDT HEMOGLOBIN A1C Routine 02/07/2025 6:31 AM EDT PROTHROMBIN TIME WITH INR Routine 02/07/2025 6:31 AM EDT COMPREHENSIVE METABOLIC PANEL Routine 02/07/2025 6:31 AM EDT MAGNESIUM Routine 02/07/2025 6:31 AM EDT PHOSPHORUS Routine 02/07/2025 6:31 AM EDT COMPLETE BLOOD COUNT Routine 02/07/2025 6:31 AM EDT HEPARIN AND LOW MOLECULAR WEIGHT ANTI XA LEVEL Timed 02/07/2025 6:31 AM EDT PEP THERAPY Routine [...] 02/06/2025 6:15 PM EDT Positive D dimer HOME O2 EVAL (DESATURATION SCREEN) Routine 02/06/2025 4:32 PM EDT PEP THERAPY Routine 02/06/2025 4:32 PM EDT OXYGEN THERAPY, ADULT Routine 02/06/2025 2:05 PM EDT OXYGEN THERAPY, ADULT Routine 02/06/2025 2:05 PM EDT OXYGEN THERAPY, ADULT Routine 02/06/2025 2:05 PM EDT HEPARIN AND LOW MOLECULAR WEIGHT ANTI XA LEVEL Timed 02/06/2025 12:39 PM EDT NM LUNG PERFUSION IMAGING Routine 02/06/2025 10:41 AM EDT CBC WITH AUTO DIFFERENTIAL Add-On 02/06/2025 6:12 AM EDT CREATINE KINASE Add-On 02/06/2025 6:12 AM EDT D-DIMER Add-On 02/06/2025 6:12 AM EDT C-REACTIVE PROTEIN Add-On 02/06/2025 6: 12 AM EDT BASIC METABOLIC PANEL Add-On 02/06/2025 6:12 AM EDT CBC AND DIFFERENTIAL Add-On 02/06/2025 6:12 AM EDT LAVENDER - EDTA Routine 02/06/2025 6:12 AM EDT SST - GOLD Routine 02/06/2025 6:12 AM EDT EXTRA TUBES Routine 02/06/2025 6:12 AM EDT HEPARIN AND LOW MOLECULAR WEIGHT ANTI XA LEVEL Timed 02/06/2025 6:12 AM EDT HEPARIN AND LOW MOLECULAR WEIGHT ANTI XA LEVEL Timed 02/06/2025 12:03 AM EDT CPAP NIV Routine 02/05/2025 10:00 PM EDT HEPARIN AND LOW MOLECULAR WEIGHT ANTI XA LEVEL Timed 02/05/2025 6:20 PM EDT LAVENDER - EDTA Routine 02/05/2025 12:09 PM EDT EXTRA TUBES Routine 02/05/2025 12:09 PM EDT POTASSIUM Routine 02/05/2025 12:09 PM EDT HEPARIN AND LOW MOLECULAR WEIGHT ANTI XA LEVEL Timed 02/05/2025 12:09 PM EDT CBC WITH AUTO DIFFERENTIAL Routine 02/05/2025 5:27 AM EDT HEPARIN AND LOW MOLECULAR WEIGHT ANTI XA LEVEL Timed 02/05/2025 5:27 AM EDT MAGNESIUM Routine 02/05/2025 5:27 AM EDT BASIC METABOLIC PANEL Routine 02/05/2025 5:27 AM EDT CBC AND DIFFERENTIAL Routine 02/05/2025 5:27 AM EDT CPAP NIV Routine 02/05/2025 3:01 AM EDT CPAP NIV Routine 02/05/2025 3:01 AM EDT HEPARIN AND LOW MOLECULAR WEIGHT ANTI XA LEVEL Routine 02/05/2025 12:10 AM EDT HEPARIN AND LOW MOLECULAR WEIGHT ANTI XA LEVEL Timed 02/04/2025 10:07 PM EDT ACTIVATED PARTIAL THROMBOPLASTIN TIME STAT 02/04/2025 10:[address] CHEST/ABDOMEN/PELVIS WO CONTRAST STAT 02/04/2025 6:00 PM EDT VAS US DUPLEX LOWER EXT VENOUS BILAT STAT 02/04/2025 5:35 PM EDT Lower extremity edema B-TYPE NATRIURETIC PEPTIDE STAT 02/04/2025 4:32 PM EDT PROTHROMBIN TIME WITH INR STAT Add-on 02/04/2025 4:29 PM EDT HEPARIN AND LOW MOLECULAR WEIGHT ANTI XA LEVEL Add-On 02/04/2025 4:29 PM EDT CBC WITH AUTO DIFFERENTIAL STAT 02/04/2025 4:29 PM EDT TROPONIN I HIGH SENSITIVITY STAT 02/04/2025 4:29 PM EDT MAGNESIUM STAT 02/04/2025 4:29 PM EDT D-DIMER STAT 02/04/2025 4:29 PM EDT COMPREHENSIVE METABOLIC PANEL STAT 02/04/2025 4:29 PM EDT CBC AND DIFFERENTIAL STAT 02/04/2025 4:29 PM EDT URINALYSIS WITH REFLEX MICROSCOPIC STAT 02/04/2025 4:13 PM EDT URINALYSIS WITH REFLEX MICROSCOPIC STAT 02/04/2025 4:13 PM EDT ECG 12-LEAD STAT 02/04/2025 3:52 PM EDT BASIC METABOLIC PANEL Routine 02/04/2025 9:30 AM EDT Chronic kidney disease, unspecified COMPREHENSIVE METABOLIC PANEL Routine 02/01/2025 8:24 AM EDT Essential (primary) hypertension COMPLETE BLOOD COUNT Routine 02/01/2025 8:24 AM EDT Essential (primary) hypertension CPAP NIV Routine 01/29/2025 10:00 PM EDT CPAP NIV Routine 01/28/2025 10:00 PM EDT [place]Y URINE CULTURE TUBE STAT 01/28/2025 6:57 PM EDT URINALYSIS WITH REFLEX MICROSCOPIC AND CULTURE STAT 01/28/2025 6:57 PM EDT URINALYSIS WITH REFLEX MICROSCOPIC AND CULTURE STAT 01/28/2025 6:57 PM EDT CULTURE URINE STAT 01/28/2025 6:57 PM EDT CPAP NIV Routine 01/28/2025 12:10 PM EDT from Last 3 Months Results * Vitamin B12 and folate (02/10/2025 6:59 AM EDT) Vitamin B-12 311 250 - 900 pcg/mL LAB CHEMISTRY METHOD 02/10/2025 11:40 AM EDT [facility] Folate 2.9 2.8 - 17.0 ng/ml LAB CHEMISTRY METHOD 02/10/2025 11:40 AM EDT [facility] Blood Venous blood specimen / Unknown Venipuncture / Unknown 02/10/2025 6:59 AM EDT 02/10/2025 9:24 AM EDT us Jenn Hu MD LAB BLOOD ORDERABLES Final Resul t [facility] [address] [place] [address], [place] [phone] * (ABNORMAL) CBC auto differential (02/10/2025 6:59 AM EDT) Only the most recent of5 resultswithin the time period is included. WBC 11.7(H) 4.8 - 10.8 K/mcL LAB HEMETOLOGY METHOD 02/10/2025 10:44 AM [facility] RBC 3.40(L) 4.50 - 5.50 M/mcL LAB HEMETOLOGY METHOD 02/10/2025 10:44 AM [facility] Hemoglobin 11.3(L) 13.5 - 17.5 g/dL LAB HEMETOLOGY METHOD 02/10/2025 10:44 AM [facility] Hematocrit 33.3(L) 42.0 - 54.0 % LAB HEMETOLOGY METHOD 02/10/2025 10:44 AM [facility] MCV 97.4 79.0 - 98.0 FL LAB HEMETOLOGY METHOD 02/10/2025 10:44 AM [facility] MCH 33.0(H) 27.0 - 32.0 pcg LAB HEMETOLOGY METHOD 02/10/2025 10:44 AM [facility] MCHC 33.9 32.0 - 37.0 g/dL LAB HEMETOLOGY METHOD 02/10/2025 10:44 AM [facility] RDW 11.6 11.0 - 15.0 % LAB HEMETOLOGY METHOD 02/10/2025 10:44 AM [facility] Platelets 312 130 - 400 K/mcL LAB HEMETOLOGY METHOD 02/10/2025 10:44 AM [facility] MPV 10.1 7.0 - 11.0 FL LAB HEMETOLOGY METHOD 02/10/2025 10:44 AM [facility] NRBC 0.0 <1.0 % LAB HEMETOLOGY METHOD 02/10/2025 10:44 AM [facility] NRBC Absolute 0.00 <0.10 K/mcL LAB HEMETOLOGY METHOD 02/10/2025 10:44 AM T [facility] Neutrophils Relative 72.4 % LAB HEMETOLOGY METHOD 02/10/2025 10:44 AM [facility] Lymphocytes Relative 15.3 % LAB HEMETOLOGY METHOD 02/10/2025 10:44 AM [facility] Monocytes Relative 7.8 % LAB HEMETOLOGY METHOD 02/10/2025 10:44 AM [facility] Eosinophils Relative 2.7 % LAB HEMETOLOGY METHOD 02/10/2025 10:44 AM [facility] Basophils Relative 0.3 % LAB HEMETOLOGY METHOD 02/10/2025 10:44 AM [facility] Immature Granulocytes Relative 1.5 % LAB HEMETOLOGY METHOD 02/10/2025 10:44 AM [facility] Neutrophils Absolute 8.46(H) 1.50 - 7.00 K/mcL LAB HEMETOLOGY METHOD 02/10/2025 10:44 AM [facility] Lymphocytes Absolute 1.79 1.00 - 5.00 K/mcL LAB HEMETOLOGY METHOD 02/10/2025 10:44 AM [facility] Monocytes Absolute 0.91 0.20 - 1.00 K/mcL LAB HEMETOLOGY METHOD 02/10/2025 10:44 AM [facility] Eosinophils Absolute 0.32 0.00 - 0.50 K/mcL LAB HEMETOLOGY METHOD 02/10/2025 10:44 AM [facility] Basophils Absolute 0.04 0.00 - 0.20 K/mcL LAB HEMETOLOGY METHOD 02/10/2025 10:44 AM [facility] Immature Granulocytes Absolute 0.18(H) 0.00 - 0.03 K/mcL LAB HEMETOLOGY METHOD 02/10/2025 10:44 AM EDT [facility] Blood Venous blood specimen / Unknown Venipuncture / Unknown 02/10/2025 6:59 AM EDT 02/10/2025 9:24 AM EDT us Jenn Hu MD LAB BLOOD ORDERABLES Final Resul t Performing Organization Address [facility]/ZIP Co de Phone Number [facility] [address] [place] [address], [place] [phone] * Thyroid stimulating hormone (02/10/2025 6:59 AM EDT) TSH 0.71 0.40 - 4.00 mcIU/mL LAB CHEMISTRY METHOD 02/10/2025 12:07 PM EDT [facility] Blood Venous blood specimen / Unknown Venipuncture / Unknown 02/10/2025 6:59 AM EDT 02/10/2025 9:24 AM EDT us Jenn Hu MD LAB BLOOD ORDERABLES Final Resul t Performing Organization Address [facility] de Phone Number [facility] [address] [place] [address], [place] [phone] * (ABNORMAL) Basic metabolic panel (02/10/2025 6:59 AM EDT) Only the most recent of5 resultswithin the time period is included. Sodium 139 133 - 145 mmol/L LAB CHEMISTRY METHOD 02/10/2025 11:15 AM EDT [facility] Potassium 3.6 3.5 - 5.5 mmol/L LAB CHEMISTRY METHOD 02/10/2025 11:15 AM EDT [facility] Chloride 106 96 - 110 mmol/L LAB CHEMISTRY METHOD 02/10/2025 11:15 AM EDT [facility] CO2 26 21 - 32 mmol/L LAB CHEMISTRY METHOD 02/10/2025 11:15 AM EDT [facility] Anion Gap 7 3 - 11 LAB CHEMISTRY METHOD 02/10/2025 11:15 AM EDT [facility] Glucose 84 70 - 100 mg/dL LAB CHE[facility]STRY [facility] BUN 6 5 - 25 mg/dL LAB CHEMISTRY METHOD 02/10/2025 11:15 AM [facility] Creatinine 0.61(L) 0.70 - 1.30 mg/dL LAB CHEMISTRY METHOD 02/10[facility]2025 [facility] eGFR 108 >=60 mL/min/1. 73m2 LAB CHEMISTRY METHOD 02/10/2025 11:15 [facility] Comment:Calculation based on the Chronic Kidney Disease Epidemiology Collaboration (CKD-EPI) equation refit without adjustment for race. BUN/Creatinine Ratio 9.8 LAB CHEMISTRY METHOD 02/10/2025 11:15 AM [facility] Calcium 9.0 8.5 - 10.5 mg/dL LAB CHEMISTRY METHOD 02/10/2025 11:15 AM [facility] Blood Venous blood specimen / Unknown Venipuncture / Unknown 02/10/2025 6:59 AM EDT 02/10/2025 9:24 AM EDT us Jenn Hu MD LAB BLOOD ORDERABLES Final Resul t [facility] [address] [place] [address], * ECG-Outside (02/10/2025) us Provider Onbase ECG ORDERABLES Final Result * (ABNORMAL) C-reactive protein (02/08/2025 5:31 AM EDT) Only the most recent of2 resultswithin the time period is included. C-Reactive Protein 11.10(H) <=0.50 mg/dL LAB CHEMISTRY METHOD 02/08/2025 7:30 AM EDT [facility] Blood Venous blood specimen / Unknown Venipuncture / Unknown 02/08/2025 5:31 AM EDT 02/08/2025 6:21 AM EDT Rosario Lees MD LAB BLOOD ORDERABLES Final Resu lt [facility] [address] [place] [address], * Phosphorus (02/08/2025 5:31 AM EDT) Only the most recent of2 resultswithin the time period is included. Pathologist [facility] Phosphorus 4.5 2.5 - 4.5 mg/dL LAB CHEMISTRY METHOD 02/08/2025 8:00 AM EDT [facility] Blood Venous blood specimen / Unknown Venipuncture / Unknown 02/08/2025 5:31 AM EDT 02/08/2025 6:21 AM EDT Alon Gonsalez MD LAB BLOOD ORDERABLE S Final Result Performing Organization Address City/[facility]/ZIP Co de Phone Number [facility] [address] [place] [address], * (ABNORMAL) Magnesium (02/08/2025 5:31 AM EDT) Only the most recent of4 resultswithin the time period is included. Magnesium 1.8(L) 1.9 - 2.6 mg/dL LAB CHEMISTRY METHOD 02/08/2025 8:00 AM EDT [facility] Blood Venous blood specimen / Unknown Venipuncture / Unknown 02/08/2025 5:31 AM EDT 02/08/2025 6:21 AM EDT Alon Gonsalez MD LAB BLOOD ORDERABLE S Final Result Performing Organization Address [facility] de Phone Number [facility] [address] [place] [address], [place] [phone] * (ABNORMAL) D-Dimer (02/08/2025 5:30 AM EDT) Only the most recent of4 resultswithin the time period is included. Pathologist [facility] D-Dimer, Quant (D-DU) 2,207(H) <=230 ng/mL DDU [...] infected, trauma patients, DIC, acute CVA, acute NE, unstable angina, AF, old age, , and smoking. D-Dimer may be decreased with: Initiation of heparin therapy and oral anticoagulants. Rosario Lees MD LAB BLOOD ORDERABLES Final Resu lt Performing Organization Address [facility] de Phone Number [facility] [address] [place] [address], [place] [phone] * (ABNORMAL) CBC - Every 3 Days (02/08/2025 5:30 AM EDT) Only the most recent of3 resultswithin the time period is included. Pathologist [facility] WBC 11.7(H) 4.8 - 10.8 K/mcL LAB HEMETOLOGY METHOD 02/08/2025 6:38 AM EDT [facility] RBC 3.50(L) 4.50 - 5.50 M/mcL LAB HEMETOLOGY METHOD 02/08/2025 6:38 AM [facility] Hemoglobin 11.9(L) 13.5 - 17.5 g/dL LAB HEMETOLOGY METHOD 02/08/2025 6:38 AM [facility] Hematocrit 33.7(L) 42.0 - 54.0 % LAB HEMETOLOGY METHOD 02/08/2025 6:38 AM [facility] MCV 95.7 79.0 - 98.0 FL LAB HEMETOLOGY METHOD 02/08/2025 6:38 AM [facility] MCH 33.8(H) 27.0 - 32.0 pcg LAB HEMETOLOGY METHOD 02/08/2025 6:38 AM [facility] MCHC 35.3 32.0 - 37.0 g/dL LAB HEMETOLOGY METHOD 02/08/2025 6:38 AM [facility] RDW 11.2 11.0 - 15.0 % LAB HEMETOLOGY METHOD 02/08/2025 6:38 AM [facility] Platelets 285 130 - 400 K/mcL LAB HEMETOLOGY METHOD 02/08/2025 6:38 AM [facility] MPV 10.0 7.0 - 11.0 FL LAB HEMETOLOGY METHOD 02/08/2025 6:38 AM [facility] NRBC 0.0 <1.0 % LAB HEMETOLOGY METHOD 02/08/2025 6:38 AM [facility] NRBC Absolute 0.00 <0.10 K/mcL LAB HEMETOLOGY METHOD 02/08/2025 6:38 AM [facility] Blood Venous blood specimen / Unknown Venipuncture / Unknown 02/08/2025 5:30 AM EDT 02/08/2025 6:21 AM EDT Rosario Lees MD LAB BLOOD ORDERABLES Final Resu lt Performing Organization Address City/[facility]/ZIP Co de Phone Number [facility] [address] [place] [address], [place] [phone] * (ABNORMAL) Activated Partial Thromboplastin Time - STAT (02/07/2025 4:40 PM EDT) Only the most recent of2 resultswithin the time period is included. aPTT 139.1(HH) 24.1 - 39.3 sec LAB COAGULATION METHOD 02/07/2025 5:24 PM EDT [facility] Blood Venous blood specimen / Unknown Venipuncture / Unknown 02/07/2025 4:40 PM EDT 02/07/2025 4:51 PM EDT Rosario Lees MD LAB BLOOD ORDERABLES Final Resu lt Performing Organization Address [facility] Co de Phone Number [facility] [address] [place] [address], [place] [phone] * Anti-Xa - Every 6 Hours (02/07/2025 12:03 PM EDT) Only the most recent of13 resultswithin the time period is included. Heparin Anti-Xa 0.68 0.30 - 0.70 I Unit/mL LAB COAGULATION METHOD 02/07/2025 12:25 PM EDT [facility] Blood Venous blood specimen / Unknown Venipuncture / Unknown 02/07/2025 12:03 PM EDT 02/07/2025 12:11 PM EDT Narrative [facility] - 02/07/2025 12:25 PM EDT Therapeutic range listed is for Unfractionated Heparin. LMW Heparin therapeutic range: 0.50-1.20 IU/mL Naeem Daniels MD LAB BLOOD ORDERABLES Final Res ult [facility] [address] [place] [address], [place] [phone] * (ABNORMAL) TRANSTHORACIC ECHOCARDIOGRAM (TTE) COMPLETE W/ CONTRAST (02/07/2025 10:37 AM EDT) Left Atrium Minor Nash 6.0 cm CV PACS Left Atrium Major Nash 6.1 cm CV PACS LA Area Sys [...] 0.72 cm2/m2 CV PACS MOLLY Index ([employer]) 1.18 cm2/m2 CV PACS LVIDD Index 2.56 cm/m2 CV PACS LVIDS Index 1.43 cm/m2 CV PACS AV Velocity Ratio 0.46 CV PACS E/A Ratio 0.6(A) 0.8 - 2.0 CV PACS E/E' Ratio Lateral 13 CV PACS LA Volume Index (BP) 20 mL/m2 CV PACS LV Mass Index 2D 83 50 - 102 g/m2 CV PACS MV Deceleration [place] 5.6 m/s2 CV PACS MV PHT 41 [...] S' 18 cm/s CV PACS RA Major Nash 5.3 cm CV PACS RA Major Nash Index 2.6 2.1 - 2.7 cm/m2 CV [...] with the patient in a supine position. us Rosario Lees MD CV ECHO PROCEDURES Final Result * Troponin I high sensitivity (02/07/2025 6:31 AM EDT) Only the most recent of2 resultswithin the time period is included. Pathologist [facility] High Sensitivity Troponin I 22 <=79 ng/L [...] ORDERABLES Final Resu lt Performing Organization Address City/[facility]/ZIP Co de Phone Number [facility] [address] [place] [address], [place] [phone] * Thyroid stimulating hormone with reflex to free t4 and free t3 (02/07/2025 6:31 AM EDT) [facility] TSH 1.11 0.40 - 4.00 mcIU/mL LAB CHEMISTRY METHOD 02/07/2025 9:41 AM EDT [facility] Blood Venous blood specimen / Unknown Venipuncture / Unknown 02/07/2025 6:31 AM EDT 02/07/2025 7:14 AM EDT us Rosario Lees MD LAB BLOOD ORDERABLES Final Resu lt [facility] [address] [place] [address], [place] [phone] * Prostate specific antigen diagnostic (02/07/2025 6:31 AM EDT) [facility] PSA 3.83 0.00 - 4.00 ng/mL LAB CHEMISTRY METHOD 02/07/2025 9:26 AM EDT [facility] Blood Venous blood specimen / Unknown Venipuncture / Unknown 02/07/2025 6:31 AM EDT 02/07/2025 7:14 AM EDT Narrative [facility] - 02/07/2025 9:26 AM EDT The Siemens Advia Unfoldaur Chemiluminescent Immunoassay is used. Results obtained with different assay methods or kits cannot be used interchangeably. Results cannot be interpreted as absolute evidence of the presence or absence of malignant disease. us Rosario Lees MD LAB BLOOD ORDERABLES Final Resu lt Performing Organization Address City/[facility]/ZIP Co de Phone Number [facility] [address] [place] [address], [place] [phone] * (ABNORMAL) Prothrombin time with INR (02/07/2025 6:31 AM EDT) Only the most recent of2 resultswithin the time period is included. [facility] Protime 16.0(H) 10.6 - 13.9 sec [...] lt [facility] [address] [place] [address], [place] [phone] * Hemoglobin A1c (02/07/2025 6:31 AM EDT) [facility] Hemoglobin A1C 4.5 <6.5 % LAB [...] ORDERABLES Final Resu lt Performing Organization Address [facility]/ZIP Co de Phone Number [facility] [address] [place] [address], [place] [phone] * Vitamin B12 (02/07/2025 6:31 AM EDT) [facility] Vitamin B-12 345 250 - 900 pcg/mL LAB CHEMISTRY METHOD 02/07/2025 8:34 AM EDT [facility] Blood Venous blood specimen / Unknown Venipuncture / Unknown 02/07/2025 6:31 AM EDT 02/07/2025 7:14 AM EDT us Rosario Lees MD LAB BLOOD ORDERABLES Final Resu lt [facility] [address] [place] [address], [place] [phone] * (ABNORMAL) Comprehensive metabolic panel (02/07/2025 6:31 AM EDT) Only the most recent of3 resultswithin the time period is included. [facility] Sodium 138 133 - 145 mmol/L LAB CHEMISTRY METHOD 02/07/2025 8:11 AM EDT [facility] Potassium 3.6 3.5 - 5.5 mmol/L LAB CHEMISTRY METHOD 02/07/2025 8:11 AM [facility] Chloride 105 96 - 110 mmol/L LAB CHEMISTRY METHOD 02/07/2025 8:11 AM [facility] CO2 27 21 - 32 mmol/L LAB CHEMISTRY METHOD 02/07/2025 8:11 AM [facility] Anion Gap 6 3 - 11 LAB CHEMISTRY METHOD 02/07/2025 8:11 AM [facility] Glucose 99 70 - 100 mg/dL LAB CHEMISTRY METHOD 02/07/2025 8:11 AM [facility] BUN 8 5 - 25 mg/dL LAB CHEMISTRY METHOD 02/07/2025 8:11 AM [facility] Creatinine 0.55(L) 0.70 - 1.30 mg/dL LAB CHEMISTRY METHOD 02/07/2025 8:11 AM [facility] eGFR 111 >=60 mL/min/1. 73m2 LAB CHEMISTRY METHOD 02/07/2025 8:11 AM [facility] Comment:Calculation based on the Chronic Kidney Disease Epidemiology Collaboration (CKD-EPI) equation refit without adjustment for race. BUN/Creatinine Ratio 14.5 LAB CHEMISTRY METHOD 02/07/2025 8:11 AM [facility] Calcium 8.7 8.5 - 10.5 mg/dL LAB CHEMISTRY METHOD 02/07/2025 8:11 AM [facility] AST (SGOT) 16 10 - 42 unit/L LAB CHEMISTRY METHOD 02/07/2025 8:11 AM [facility] ALT (SGPT) 12 10 - 60 unit/L LAB CHEMISTRY METHOD 02/07/2025 8:11 AM [facility] Alkaline Phosphatase 84 42 - 121 unit/L LAB CHEMISTRY METHOD 02/07/2025 8:11 AM [facility] Total Protein 6.2 6.0 - 8.0 g/dL LAB CHEMISTRY METHOD 02/07/2025 8:11 AM EDT [facility] Albumin 2.8(L) 3.2 - 5.0 g/dL LAB CHEMISTRY METHOD 02/07/2025 8:11 AM EDT [facility] Total Bilirubin 0.8 0.0 - 1.4 mg/dL LAB CHEMISTRY METHOD 02/07/2025 8:11 AM EDT [facility] Blood Venous blood specimen / Unknown Venipuncture / Unknown 02/07/2025 6:31 AM EDT 02/07/2025 7:14 AM EDT Rosario Lees MD LAB BLOOD ORDERABLES Final Resu lt [facility] [address] [place] [address], * Respiratory virus panel molecular study (02/07/2025 [...] 12:37 AM EDT 02/07/2025 12:47 AM EDT [facility] - 02/07/2025 1:47 AM EDT Testing was performed using the Wallit Respiratory Pathogen PCR Assay. All results must [...] that are below the limit of detection. us Rosario Lees MD LAB MICROBIOLOGY - [facility] BIPIN RAMOS Final Result [facility] ([facility] [address] [place] [address], * Vascular US duplex lower extremity venous bilateral (02/06/2025 6:15 PM EDT) Only the most recent of2 resultswithin the time period is included. Anatomical Region Laterality Modality Vascular, Abdomen Ultrasound [...] by: Cameron oCok MD on 02/06/2025 18:41:00 Narrative 02/06/2025 6:41 [...] by: Cameron Cook MD on 02/06/2025 18:41:00 us Rosario Lees MD CV VASCULAR PROCEDURES Edited R esult - Final * NM Lung Perfusion Imaging (02/06/2025 10:41 [...] Signed Date: 02/06/2025 11:50 ET Workstation ID: [id number] Transcribed By: Self Edit Transcribed Date: 02/06/2025 11:39 ET Narrative 02/06/2025 11:50 AM EDT INDICATION: Shortness of breath FINDINGS: Perfusion only scan was obtained. 5.2 mCi of technetium 99 M MAA intravenously for the perfusion portion with imaging obtained in different positions including anterior, posterior, YORUBA, HURLEY, LPO and HURLEY views. Relevant studies: [...] imaging obtained in different positions including anterior,posterior, YORUBA, HURLEY, LPO and HURLEY views. Relevant studies: [...] Signed Date: 02/06/2025 11:50 ET Workstation ID: [id number] Transcribed By: Self Edit Transcribed Date: 02/06/2025 11:39 ET Naeem Daniels MD IMG NM PROCEDURES Final Result * SST tube (02/06/2025 6:12 AM EDT) Extra Tube Hold for add-ons. 02/06/2025 8:01 AM EDT [facility] Comment:Auto resulted. Blood Venous blood specimen / Unknown Venipuncture / Unknown 02/06/2025 6:12 AM EDT 02/06/2025 6:20 AM EDT Rosario Lees MD LAB BLOOD ORDERABLES Final Resu lt [facility] [address] [place] [address], [place] [phone] * Lavender tube (02/06/2025 6:12 AM EDT) Only the most recent of2 resultswithin the time period is included. Extra Tube Hold for add-ons. 02/06/2025 8:01 AM EDT [facility] Comment:Auto resulted. Blood Venous blood specimen / Unknown Venipuncture / Unknown 02/06/2025 6:12 AM EDT 02/06/2025 6:20 AM EDT us Rosario Lees MD LAB BLOOD ORDERABLES Final Resu lt Performing Organization Address [facility]/ZIP Co de Phone Number [facility] [address] [place] [address], [place] [phone] * (ABNORMAL) Creatine kinase (02/06/2025 6:12 AM EDT) Total CK 14(L) 22 - 269 unit/L LAB CHEMISTRY METHOD 02/06/2025 10:33 AM EDT [facility] Comment:Results verified by repeat testing Blood Venous blood specimen / Unknown Venipuncture / Unknown 02/06/2025 6:12 AM EDT 02/06/2025 6:20 AM EDT us Rosario Lees MD LAB BLOOD ORDERABLES Final Resu lt Performing Organization Address [facility] Co de Phone Number [facility] [address] [place] [address], [place] [phone] * Potassium (02/05/2025 12:09 PM EDT) Potassium 3.8 3.5 - 5.5 mmol/L LAB CHEMISTRY METHOD 02/05/2025 12:38 PM EDT [facility] Blood Venous blood specimen / Unknown Venipuncture / Unknown 02/05/2025 12:09 PM EDT 02/05/2025 12:16 PM EDT us Richie Cerna MD LAB BLOOD ORDERABLES Final Resul t Performing Organization Address [facility]/ZIP Co de Phone Number [facility] [address] [place] [address], [place] [phone] * CT Chest/Abdomen/Pelvis wo Contrast (02/04/2025 6:00 [...] adenopathy. Abdominal aorta is normal caliber with [id number] calcific athero sclerosis. Bowel loops reveal no abnormal wall thickening or distention. Colonic diverticulosis is present, without CT evidence of diverticulitis. The appendix appears unremarkable. CT pelvis: Evaluation of the lower pelvis is limited by streak artifact from patient's right hip arthroplasty hardware. No gross pelvic masses, fluid or adenopathy. A Phoenix catheter is present within urinary bladder. Osseous structures reveal no destructive osseous lesions. There are advanced left hip osteoarthritic changes. Procedure Note White, Keith S, MD - 02/04/2025 INDICATION: elevated creatinine, hypoxic. [...] adenopathy. Abdominal aorta is normal caliber with [id number] calcific athero sclerosis. Bowel loops reveal no abnormal wall thickening or distention. Colonic diverticulosis is present, without CT evidence of diverticulitis. The appendix appears unremarkable. CT pelvis: Evaluation of the lower pelvis is limited by streak artifact from patient's right hip arthroplasty hardware. No gross pelvic masses, fluid or adenopathy. A Phoenix catheter is present within urinary bladder. Osseous structures reveal no destructive osseous lesions. There are advanced left hip osteoarthritic changes. IMPRESSION: Impression: 1. Mild patchy bilateral upper lobe ground-glass opacities, concerningfor multifocal pneumonia or nonspecific pneumonitis, as described above. 2. No acute abnormality within the abdomen or pelvis. This document has been electronically signed by: Keith De Souza MD on 02/04/2025 19:14:22 Frances Edward MD IMG CT PROCEDURES Final Resu lt * (ABNORMAL) B-type natriuretic peptide (02/04/2025 4:32 PM EDT) [facility] BNP 180(H) <=100 pcg/mL LAB CHEMISTRY METHOD 02/04/2025 5:32 PM EDT [facility] Blood Venous blood specimen / Unknown Venipuncture / Unknown 02/04/2025 4:32 PM EDT 02/04/2025 4:54 PM EDT Frances Edward MD LAB BLOOD ORDERABLES Final R esult [facility] [address] [place] [address], [place] [phone] * (ABNORMAL) Urinalysis with reflex microscopic (02/04/2025 4:13 PM EDT) [facility] Specific [place] Urine 1.010 1.003 - 1.030 LAB URINALYSIS - AUTOMATED METHOD 02/04/2025 5:08 PM [facility] pH, Urine 5.5 5.0 - 8.0 pH LAB URINALYSIS - AUTOMATED METHOD 02/04/2025 5:08 PM [facility] Leukocytes, Urine Trace(A) Negative LAB URINALYSIS - AUTOMATED METHOD 02/04/2025 5:08 PM [facility] Nitrite, Urine Negative Negative LAB URINALYSIS - AUTOMATED METHOD 02/04/2025 5:08 PM [facility] Protein, Urine Negative <=Trace mg/dL LAB URINALYSIS - AUTOMATED METHOD 02/04/2025 5:08 PM [facility] Glucose, Urine Negative Negative mg/dL LAB URINALYSIS - AUTOMATED METHOD 02/04/2025 5:08 PM [facility] Ketones, Urine Negative Negative mg/dL LAB URINALYSIS - AUTOMATED METHOD 02/04/2025 5:08 PM [facility] Urobilinogen, Urine 0.2 0.2 - 1.0 mg/dL LAB URINALYSIS - AUTOMATED METHOD 02/04/2025 5:08 PM EDT [facility] Bilirubin, Urine Negative Negative LAB URINALYSIS - AUTOMATED METHOD 02/04/2025 5:08 PM EDT [facility] Blood, Urine Negative Negative LAB URINALYSIS - AUTOMATED METHOD 02/04/2025 5:08 PM [facility] RBC, Urine 1.2 0 - 4 /HPF LAB URINALYSIS - AUTOMATED METHOD 02/04/2025 5:08 PM [facility] WBC, Urine 4.2(H) 0 - 4 /HPF LAB URINALYSIS - AUTOMATED METHOD 02/04/2025 5:08 PM [facility] Squamous Epithelial, Urine 12 0 - 60 /LPF LAB URINALYSIS - AUTOMATED METHOD 02/04/2025 5:08 PM [facility] Bacteria, Urine Negative Negative /HPF LAB URINALYSIS - AUTOMATED METHOD 02/04/2025 5:08 PM [facility] Hyaline Casts, Urine 0.0 0 - 3 /LPF LAB URINALYSIS - AUTOMATED METHOD 02/04/2025 5:08 PM [facility] Urine Urine specimen obtained by clean catch procedure / Unknown Non-blood Collection / Unknown 02/04/2025 4:13 PM EDT 02/04/2025 4:52 PM EDT us Frances Edward MD LAB URINE ORDERABLES Final R esult [facility] [address] [place] [address], * ECG 12 lead (02/04/2025 3:52 PM EDT) Ventricular Rate ECG 70 BPM GEMUSE Atrial Rate 70 BPM GEMUSE P-R Interval 172 ms GEMUSE QRS Duration 98 ms GEMUSE Q-T Interval 442 ms GEMUSE QTc 477 ms GEMUSE P Wave Nash 34 degrees GEMUSE R Nash -2 degrees GEMUSE T Nash -16 degrees GEMUSE ECG Interpretation Normal sinus rhythm Normal ECG No previous ECGs available Confirmed by LISSA SAUL ([id number]) on 02/05/2025 7:17:54 AM GEMUSE 02/04/2025 3:52 PM EDT 02/05/2025 7:17 AM EDT Frances Edward MD ECG ORDERABLES Final Result GEMUSE * (ABNORMAL) Urinalysis with reflex microscopic and culture (01/28/2025 6:57 PM EDT) Specific [place] Urine 1.010 1.003 - 1.030 LAB URINALYSIS - AUTOMATED METHOD 01/28/2025 7:22 PM [facility] pH, Urine 7.0 5.0 - 8.0 pH LAB URINALYSIS - AUTOMATED METHOD 01/28/2025 7:22 PM [facility] Leukocytes, Urine Small(A) Negative LAB URINALYSIS - AUTOMATED METHOD 01/28/2025 7:22 PM [facility] Nitrite, Urine Negative Negative LAB URINALYSIS - AUTOMATED METHOD 01/28/2025 7:22 PM [facility] Protein, Urine Negative <=Trace mg/dL LAB URINALYSIS - AUTOMATED METHOD 01/28/2025 7:22 PM [facility] Glucose, Urine Negative Negative mg/dL LAB URINALYSIS - AUTOMATED METHOD 01/28/2025 7:22 PM [facility] Ketones, Urine Negative Negative mg/dL LAB URINALYSIS - AUTOMATED METHOD 01/28/2025 7:22 PM [facility] Urobilinogen, Urine 1.0 0.2 - 1.0 mg/dL LAB URINALYSIS - AUTOMATED METHOD 01/28/2025 7:22 PM [facility] Bilirubin, Urine Negative Negative LAB URINALYSIS - AUTOMATED METHOD 01/28/2025 7:22 PM EDT [facility] Blood, Urine Negative Negative LAB URINALYSIS - AUTOMATED METHOD 01/28/2025 7:22 PM EDT [facility] RBC, Urine 2.0 0 - 4 /HPF LAB URINALYSIS - AUTOMATED METHOD 01/28/2025 7:22 PM EDT [facility] WBC, Urine 11.8(H) 0 - 4 /HPF LAB URINALYSIS - AUTOMATED METHOD 01/28/2025 7:22 PM EDT [facility] Squamous Epithelial, Urine 14 0 - 60 /LPF LAB URINALYSIS - AUTOMATED METHOD 01/28/2025 7:22 PM [facility] Bacteria, Urine Few(A) Negative /HPF LAB URINALYSIS - AUTOMATED METHOD 01/28/2025 7:22 PM [facility] Hyaline Casts, Urine 0.0 0 - 3 /LPF LAB URINALYSIS - AUTOMATED METHOD 01/28/2025 7:22 PM [facility] Urine Urine specimen obtained by clean catch procedure / Unknown Non-blood Collection / Unknown 01/28/2025 6:57 PM EDT 01/28/2025 7:12 PM EDT Chelo Salazar LAB URINE ORDERABLES Final Re sult [facility] [address] [place] [address], * Monroy urine culture tube (01/28/2025 6:57 PM EDT) Extra Tube Hold for add-ons. 01/28/2025 9:01 PM EDT [facility] Comment:Auto resulted. Urine Urine specimen obtained by clean catch procedure / Unknown Non-blood Collection / Unknown 01/28/2025 6:57 PM EDT 01/28/2025 7:12 PM EDT [facility] URINE ORDERABLES Final Re sult Performing Organization Address [facility]/ZIP Co de Phone Number [facility] [address] [place] [address], [place] [phone] * (ABNORMAL) Culture urine (01/28/2025 6:57 PM EDT) Culture, Urine >=100,000 CFU/mL Enterococcus faecalis(A) JOSH 01/30/2025 8:42 AM EDT [facility] Comment: This is an edited result. Previous organism was Enterococcus species on 01/29/2025 at 1351 EDT. Urine Urine specimen obtained by clean catch procedure / Unknown Non-blood Collection / Unknown 01/28/2025 6:57 PM EDT 01/28/2025 7:22 PM EDT Narrative Organism Antibiotic Method Susceptibility Enterococcus faecalis Benzylpenicillin JOSH 4 ug/ml: Susceptible Enterococcus faecalis Ampicillin JOSH <=2 ug/ml: Susceptible Enterococcus faecalis Ciprofloxacin JOSH <=0.5 ug/ml: Susceptible Enterococcus faecalis Levofloxacin JOSH 1 ug/ml: Susceptible Enterococcus faecalis Linezolid JOSH 2 ug/ml: Susceptible Enterococcus faecalis Vancomycin JOSH 1 ug/ml: Susceptible Enterococcus faecalis Tetracycline JOSH >=16 ug/ml: Resistant Enterococcus faecalis Nitrofurantoin JOSH <=16 ug/ml: Susceptible [facility] MICROBIOLOGY - GENERAL OR DERABLES Final Result Performing Organization Address [facility]/State/ZIP Co de Phone Number [facility] [address] [place] [address], [place] [phone] from Last 3 Months Insurance ([facility]) Advance Directives Documents on File Type Date Recorded 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 Do not modify or discontinue any currently active code status orders. * Full Code - Confirmed Date Activated Date Inactivated Comments 01/28/2025 6:16 AM 01/31/2025 6:25 PM This code sta tus was ascertained in the following way: Code status discussion: discussion with patient To update the patient's code status, place a code status order. Do not modify or discontinue any currently active code status orders. Healthcare Agents on File Name Relationship Healthcare Agent Relationshi p Communication Manuel Lozano Spouse Health Care Agent Care Teams Soldering Machine Feeder Relationship Specialty Start Date End Date Jenn Hu MD [address] [place] [address] [address] [place] [address] PCP - General Geriatric Medicine 02/01/25
--- OUTSIDE RECORDS SUMMARY | 2025-02-13 10:42 | XMS_ITS | Encounter Summary ---
Author Organization [facility] Address [address] [place] [address] Care Team Providers Care Co Founder And Director Name Role Phone Brain Cyr Primary Care Provider [phone] Norma Rogel RN Unavailable Unavailable Reason for Visit * Reason Comments Medication Refill Encounter Details Date Type Department Care Team (Late st Contact Info) Description 03/29/2024 Refill [facility] [address] [phone] Jed Pinon MD [address] [place] [address] [place] [address] Closed fracture of right ankle with routine [...] encounter documented in this encounter Care Teams Co Founder And Director Relationship Specialty Start Date End Date Brain Cyr DO PCP - General 07/14/18 Norma Rogel, RN CT Registered Nurse 07/14/18 documented as of this encounter
--- OUTSIDE RECORDS SUMMARY | 2025-02-13 10:42 | XMS_ITS | Encounter Summary ---
Author Organization [facility] Address [address] [place] [address] Care Team Providers Care Pack Master Name Role Phone Brain Cyr Primary Care Provider Norma Rogel RN Unavailable Unavailable Reason for Visit * Reason Comments Medication Refill Encounter Details Date Type Department Care Team (Late st Contact Info) Description 12/26/2023 [facility]ill [facility] [address] [phone] Natan Senior PA [address] [place] [phone] Closed fracture of right ankle with routine [...] encounter documented in this encounter Care Teams Pack Master Relationship Specialty Start Date End Date Brain Cyr DO PCP - General 07/14/18 Norma Rogel, LONI CT Registered Nurse 07/14/18 documented as of this encounter
--- OUTSIDE RECORDS SUMMARY | 2025-02-13 10:42 | XMS_ITS | Encounter Summary ---
Author Organization [facility] Address [address] [place], [place] [id number] Care Team Providers Care Row Boss Name Role Phone Brain Cyr Primary Care Provider [phone] Norma Rogel RN Unavailable Unavailable Encounter Details Date Type Department Care Team (Late st Contact Info) Description 11/12/2021 Prep for Surgery [facility] OPHTHALMOLOGY [address] [place] [phone] Demetrius Thompson MD [address] [place] [address] Social History Tobacco Use Types Packs/Day Years [...] Diagnoses Not on filedocumented in this encounter Additional Health Concerns Infection Onset Date Last Indicated Resolved Time R/O COVID-19 (PUI) 11/14/2021 11/14/2021 2 7:25 AM EDT documented as of this encounter Care Teams Row Boss Relationship Specialty Start Date End Date Brain Cyr DO PCP - General 07/14/18 Norma Rogel, LONI CT Registered Nurse 07/14/18 documented as of this encounter
--- OUTSIDE RECORDS SUMMARY | 2025-02-13 10:43 | XMS_ITS | Encounter Summary ---
Author Organization [facility] Address [address] [place] [address] Care Team Providers Care Prepared Foods Team Leader Name Role Phone Brain Cyr DO Primary Care Provider [phone] Norma Rogel RN Unavailable Unavailable Encounter Details Date Type Department Care Team (Late st Contact Info) Description 10/20/2022 Erroneous Encounter [facility] DEPT [address] [place] [id number] Provider, MD Darell Social History Tobacco Use Types Packs/Day Years [...] on filedocumented in this encounter Care Teams Prepared Foods Team Leader Relationship Specialty Start Date End Date Brain Cyr DO PCP - General 07/14/18 Lamberty, Norma, RN CT Registered Nurse 07/14/18 documented as of this encounter
== END 2025-02-13 09:46 | disposition home or self-care (01) ==
LOC: HO.HNS 09:05
PROVIDERS: Visit Provider Physician Assistant
DX: Z98.1 Arthrodesis status (principal)
CPT/HCPCS: 99024

== ENCOUNTER 2025-03-27 15:38 | Outpatient (REF) | payer BC, SELFPAY ==
--- OUTSIDE RECORDS SUMMARY | 2025-03-24 08:00 | XMS_ITS | Encounter Summary ---
Author Organization [facility], Located Within [facility] Address [address] [place] [address] Care Team Providers Care Plastic Block Boiler Reliner Name Role Phone Brain Cyr DO Primary Care Provider [phone] Norma Rogel RN Unavailable Unavailable Encounter Details Date Type Department Care Team (Latest Contact Info) Description 03/24/2025 8:00 AM EDT Procedure visit [facility] [address] [facility] [phone] Venu Mantilla, RN 5 [place] [address] Encounter for Chaves catheter removal (Primary Dx) Social History Tobacco Use Types Packs/Day Years Used Date Smoking Tobacco: Former Cigarettes 1 10 0 07/14/1989 - 07/14/1999 Smokeless Tobacco: Never Alcohol Use Standard Drinks/Week Comments Yes 14 (1 standard drink = 0.6 oz pure alcohol) 2 vy, 2 shots liquor nightly, will stop pre op . Last drink 6 days ago. [facility] Utilities Answer Date Recorded In the past 12 months has [employer], gas, oil, or water company threatened to [...] any time in the past 12 m [facility], were you homeless or living in a longterm (including now)? No 01/10/2025 Sex and Gender Information Value Date Recorded Sex Assigned at Male 05/31/2024 9:05 AM EST Legal Sex Male 2:17 PM EDT Gender Identity Male 05/31/2024 9:05 AM EST Sexual Orientation Heterosexual (straight) 05/31 9:05 AM EST documented as of this encounter Progress Notes * Venu Mantilla RN - 03/24/2025 9:00 AM EDT Lopez Jackson presents to the office for a voiding trial, S/P urinary retention on 02/04/25. Denies any s/sx of infection. Advised that there may be some discomfort and hematuria when voiding after the catheter is removed.Advised that the patient should drink water, at least 8 oz per hour, for the next 4-6 hours and to attempt to void Q 2 hours. Patient is advised to keep track of input and output. Patient verbalized an understanding and has no additional questions at this time. Balloon was deflated, and the 16 Fr coude tip chaves catheter was removed intact, without difficulty. Lopez Jackson is advised to contact the office prior to afternoon appointment if unable tovoid or has trouble voiding, abdominal pain or discomfort. documented in this encounter Plan of Treatment Upcoming Encounters Date Type Department Care Team (Late st Contact Info) Description 04/18/2025 9:00 AM EST Procedure visit [facility] [address] [place] [phone] 04/18/2025 3:00 PM EST Procedure visit [facility] [address] [place] [phone] 05/17/2025 9:45 AM EST Office Visit [facility] [address] [place] [phone] Esthela Kaye, PMP PROJECT MANAGER [address] [address] documented as of this encounter Visit Diagnoses Diagnosis Encounter for Chaves catheter removal- Primary documented in this encounter Care Teams Plastic Block Boiler Reliner Relationship Specialty Start Date End Date Brain Cyr DO PCP - General 07/14/18 Norma Rogel, LONI CT Registered Nurse 07/14/18 documented as of this encounter
--- OUTSIDE RECORDS SUMMARY | 2025-03-24 14:30 | XMS_ITS | Encounter Summary ---
Author Organization [facility] Address [address] [place] [address] Care Team Providers Care Cribbing Setter Name Role Phone Brain Cyr DO Primary Care Provider [phone] Norma Rogel RN Unavailable Unavailable Encounter Details Date Type Department Care Team (Latest Contact Info) Description 03/24/2025 2:30 PM EDT Procedure visit [facility] [address] [facility] [address] [place] [phone] Venu Mantilla, RN 5 [place] [address] Encounter for Chaves catheter removal (Primary Dx); Urinary retention Social History Tobacco Use Types Packs/Day Years Used Date Smoking Tobacco: Former Cigarettes 1 10 0 07/14/1989 - 07/14/1999 Smokeless Tobacco: Never Alcohol Use Standard Drinks/Week Comments Yes 14 (1 standard drink = 0.6 oz pure alcohol) 2 vy, 2 shots liquor nightly, will stop pre op . Last drink 6 days ago. [facility] Utilities Answer Date Recorded In the past 12 months has [email or web address], gas, oil, or water Consult A Doctor threatened to shut off services in your [...] any time in the past [address] [facility], were you homeless or living in a usp (including now)? No 01/10/2025 Sex and Gender Information Value Date Recorded Sex Assigned at Male 05/31/2024 9:05 AM EST Legal Sex Male 2:17 PM EDT Gender Identity Male 05/31/2024 9:05 AM EST Sexual Orientation Heterosexual (straight) 05/31 9:05 AM EST documented as of this encounter Progress Notes * Venu Mantilla RN - 03/24/2025 2:41 PM EDT Lopez Jackson presented to the office for a bladder scan after having chaves catheter removed on 03/24/2025. Lopez Jackson reports that he has not been voiding since catheter was removed. Patient complains of abdominal discomfort. Patient's bladder was scanned and PVR was [address]Daniels was made aware of the previous information. Advised patient to repeat VT in 3-4 weeks and to follow up with provider. Patient prepped in a sterile fashion with Hibiclens. Nurse applied 10 mL/2% lidocaine jelly via urethra. A new 16 Fr straight tip catheter inserted without resistance. 900 mL urine is observed upon return, balloon is inflated with 10 mL of sterile water, catheter is attached to a leg bag and secured to the patient's left upper thigh. Reviewed chaves care, patient verbalized an understanding. Patient is advised to contact the office should any s/sx of infection develop or any difficulty with the catheter occurs. Patient will return to see nursing in 3 weeks for VT. documented in this encounter Plan of Treatment Upcoming Encounters Date Type Department Care Team ([facility] st Contact Info) Description 04/18/2025 9:00 AM EST Procedure visit [facility] [address] [place] [phone] 04/18/2025 3:00 PM EST Procedure visit [facility] [address] [place] [phone] 05/17/2025 9:45 AM EST Office Visit [facility] [address] [place] [phone] Esthela Kaye APRN [address] [phone] documented as of this encounter Procedures Procedure Name Priority Date/Time Associated Diagnosis Comments POCT BLADDER SCAN Routine 03/24/2025 2:4 1 PM EDT Encounter for Chaves catheter removal documented in this encounter Results * POCT Bladder Scan (03/24/2025 2:41 PM EDT) Bladder Scan, Urine Volume 906 cc Urine 03/24/2025 2:41 PM EDT us Esthela Kaye APRN POCT ORDERABLES - IMAGING Final Result documented in this encounter Visit Diagnoses Diagnosis Encounter for Chaves catheter removal- Primary Urinary retention Unspecified retention of urine documented in this encounter Care Teams Cribbing Setter Relationship Specialty Start Date End Date Brain Cyr DO PCP - General 07/14/18 Norma Rogel, LONI CT Registered Nurse 07/14/18 documented as of this encounter
--- OUTSIDE RECORDS SUMMARY | 2025-03-27 10:16 | XMS_ITS | Encounter Summary ---
Author Organization [facility] Address [address] [place] [address] Care Team Providers Care Rn Review Name Role Phone Jenn Hu MD Primary Care Provider [phone] Encounter Details Date Type Department Care Team (Late st Contact Info) Description 02/05/2025 Lab Requisition [facility] [address] [facility] [place] [address] Jenn Hu MD [address] [place] [address] Chronic kidney disease, unspecified Social History Tobacco Use Types Packs/Day Years Used Date Smoking Tobacco: Never Assessed Interpersonal Safety Answer Date Record ed Physical Abuse Unrecognized value 02/06/2025 Verbal Abuse Unrecognized value 02/06/2025 Sex and Gender Information Value Date [...] Assessment Author Yes 01/29/2025 4:44 PM EDT Chencho, S cott, RN * Do you have serious difficulty dressing or bathing? Answer Date of Assessment Author No 01/29/2025 4:44 PM EDT Caterina Paiz RN * Because of a physical, mental, or emotional condition, do you have serious difficulty doing errandsalone such as visiting the doctor? Answer Date of Assessment Author No 01/29/2025 4:44 PM EDT Caterina Paiz RN * Calculated C-SSRS Risk Score (Lifetime/Recent) Answer Date of Assessment Author No Risk Indicated 02/06/2025 5:01 PM EDT Enid Hill RN * [place] Suicide Severity Rating Scale (Screener/Recent Self-Report) Question Answer Date of Assessment Author 1. Wish to be (Past 1 Month) No 025 5:01 PM EDT Enid Hill RN 2. Non-Specific Active Suici mary Thoughts (Past 1 Month) No 02/06/2025 5:01 PM EDT Enid Hill RN 6. Suicidal Behavior (Lifetime) No 5:01 PM EDT Enid Hill RN documented as of this encounter Mental [...] documented as of this encounter Care Teams Rn Review Relationship Specialty Start Date End Date Jenn Hu MD [address] [place] [address] [address] [place] [address] PCP - General Geriatric Medicine 02/01/25 documented as of this encounter
--- OUTSIDE RECORDS SUMMARY | 2025-03-27 10:16 | XMS_ITS | Encounter Summary ---
Author Organization [facility] Address [address] [place] [address] Care Team Providers Care Wheel Truer Name Role Phone Jenn Hu MD Primary Care Provider [phone] Encounter Details Date Type Department Care Team (Late st Contact Info) Description 02/10/2025 Lab Requisition [facility] Lab [address] [place] [address] Jenn Hu MD [address] [place] [address] Urinary tract infection, site not specified Social [...] CBC auto differential (02/10/2025 6:59 AM EDT) [facility] WBC 11.7(H) 4.8 - 10.8 K/[facility] LAB HEMETOLOGY METHOD 02/10/2025 10:44 AM EDT [facility] RBC 3.40(L) 4.50 - 5.50 M/mcL LAB HEMETOLOGY METHOD 02/10/2025 10:44 AM [facility] Hemoglobin 11.3(L) 13.5 - 17.5 g/dL LAB HEMETOLOGY METHOD 02/10/2025 10:44 AM [facility] Hematocrit 33.3(L) 42.0 - 54.0 % LAB HEMETOLOGY METHOD 02/10/2025 10:44 AM [facility] MCV 97.4 79.0 - 98.0 FL LAB HEMETOLOGY METHOD 02/10/2025 10:44 AM [facility] MCH 33.0(H) 27.0 - 32.0 pcg LAB HEMETOLOGY METHOD 02/10/2025 10:44 AM [facility] MCHC 33.9 32.0 - 37.0 g/dL LAB HEMETOLOGY METHOD 02/10/2025 10:44 AM [facility] RDW 11.6 11.0 - 15.0 % LAB HEMETOLOGY METHOD 02/10/2025 10:44 AM [facility] Platelets 312 130 - 400 K/mcL LAB HEMETOLOGY METHOD 02/10/2025 10:44 AM [facility] MPV 10.1 7.0 - 11.0 FL LAB HEMETOLOGY METHOD 02/10/2025 10:44 AM [facility] NRBC 0.0 <1.0 % LAB HEMETOLOGY METHOD 02/10/2025 10:44 AM [facility] NRBC Absolute 0.00 <0.10 K/mcL LAB HEMETOLOGY METHOD 02/10/2025 10:44 AM [facility] Neutrophils Relative 72.4 % LAB HEMETOLOGY METHOD 02/10/2025 10:44 AM [facility] Lymphocytes Relative 15.3 % LAB HEMETOLOGY METHOD 02/10/2025 10:44 AM [facility] Monocytes Relative 7.8 % LAB HEMETOLOGY METHOD 02/10/2025 10:44 AM [facility] Eosinophils Relative 2.7 % LAB HEMETOLOGY METHOD 02/10/2025 10:44 AM [facility] Basophils Relative 0.3 % LAB HEMETOLOGY METHOD 02/10/2025 10:44 AM [facility] Immature Granulocytes Relative 1.5 % LAB HEMETOLOGY METHOD 02/10/2025 10:44 AM [facility] Neutrophils Absolute 8.46(H) 1.50 - 7.00 K/mcL LAB HEMETOLOGY METHOD 02/10/2025 10:44 AM [facility] Lymphocytes Absolute 1.79 1.00 - 5.00 K/mcL LAB HEMETOLOGY METHOD 02/10/2025 10:44 AM [facility] Monocytes Absolute 0.91 0.20 - 1.00 K/mcL LAB HEMETOLOGY METHOD 02/10/2025 10:44 AM [facility] Eosinophils Absolute 0.32 0.00 - 0.50 K/mcL LAB HEMETOLOGY METHOD 02/10/2025 10:44 AM [facility] Basophils Absolute 0.04 0.00 - 0.20 K/mcL LAB HEMETOLOGY METHOD 02/10/2025 10:44 AM [facility] Immature Granulocytes Absolute 0.18(H) 0.00 - 0.03 K/mcL LAB HEMETOLOGY METHOD 02/10/2025 10:44 AM [facility] Blood Venous blood specimen / Unknown Venipuncture / Unknown 02/10/2025 6:59 AM EDT 02/10/2025 9:24 AM EDT us Fahim A Mayte MD LAB BLOOD ORDERABLES Final Resul t Performing Organization Address City/[facility]/ZIP Co de Phone Number [facility] [address] [place] [address], [place] [phone] * Vitamin B12 and folate (02/10/2025 6:59 AM EDT) Pathologist [facility] Vitamin B-12 311 250 - 900 pcg/mL LAB CHEMISTRY METHOD 02/10/2025 11:40 AM EDT [facility] Folate 2.9 2.8 - 17.0 ng/ml LAB CHEMISTRY METHOD 02/10/2025 11:40 AM EDT [facility] Blood Venous blood specimen / Unknown Venipuncture / Unknown 02/10/2025 6:59 AM EDT 02/10/2025 9:24 AM EDT us Jenn Hu MD LAB BLOOD ORDERABLES Final Resul t Performing Organization Address [facility] Co de Phone Number [facility] [address] [place] [address], [place] [phone] * Thyroid stimulating hormone (02/10/2025 6:59 AM EDT) [facility] TSH 0.71 0.40 - 4.00 mcIU/mL LAB CHEMISTRY METHOD 02/10/2025 12:07 PM EDT [facility] Blood Venous blood specimen / Unknown Venipuncture / Unknown 02/10/2025 6:59 AM EDT 02/10/2025 9:24 AM EDT us Jenn Hu MD LAB BLOOD ORDERABLES Final Resul t Performing Organization Address City/[facility]/ZIP Co de Phone Number [facility] [address] [place] [address], [place] [phone] * (ABNORMAL) Basic metabolic panel (02/10/2025 6:59 AM EDT) Sodium 139 133 - 145 mmol/L LAB CHEMISTRY METHOD 02/10/2025 11:15 AM [facility] Potassium 3.6 3.5 - 5.5 mmol/L LAB CHEMISTRY METHOD 02/10/2025 11:15 AM [facility] Chloride 106 96 - 110 mmol/L LAB CHEMISTRY METHOD 02/10/2025 11:15 AM [facility] CO2 26 21 - 32 mmol/L LAB CHEMISTRY METHOD 02/10/2025 11:15 AM [facility] Anion Gap 7 3 - 11 LAB CHEMISTRY METHOD 02/10/2025 11:15 AM [facility] Glucose 84 70 - 100 mg/dL LAB CHEMISTRY METHOD 02/10/2025 11:15 AM [facility] BUN 6 5 - 25 mg/dL LAB CHEMISTRY METHOD 02/10/2025 11:15 AM [facility] Creatinine 0.61(L) 0.70 - 1.30 mg/dL LAB CHEMISTRY METHOD 02/10/2025 11:15 AM [facility] eGFR 108 >=60 mL/min/1. 73m2 LAB CHEMISTRY METHOD 02/10/2025 11:15 AM [facility] Comment:Calculation based on the Chronic Kidney Disease Epidemiology Collaboration (CKD-EPI) equation refit without adjustment for race. BUN/Creatinine Ratio 9.8 LAB CHEMISTRY METHOD 02/10/2025 11:15 AM [facility] Calcium 9.0 8.5 - 10.5 mg/dL LAB CHEMISTRY METHOD 02/10/2025 11:15 AM [facility] Blood Venous blood specimen / Unknown Venipuncture / Unknown 02/10/2025 6:59 AM EDT 02/10/2025 9:24 AM EDT Jenn Hu MD LAB BLOOD ORDERABLES Final Resul t [facility] [address] [place] [address], documented in this encounter Visit Diagnoses Diagnosis Urinary tract infection, site not specified documented in this encounter Care Teams Wheel Truer Relationship Specialty Start Date End Date Jenn Hu MD [address] [place] [address] [address] [place] [address] PCP - General Geriatric Medicine 02/01/25 documented as of this encounter
--- OUTSIDE RECORDS SUMMARY | 2025-03-27 10:16 | XMS_ITS | Encounter Summary ---
Author Organization [facility] Address [address] [place] [address] Care Team Providers Care Nascar Racer Name Role Phone Joealejandra Brain Payan DO Primary Care Provider [phone] Norma Rogel RN Unavailable Unavailable Encounter Details Date Type Department Care Team (Late st Contact Info) Description 10/22/2023 [facility]ill [facility] [address] [phone] Jed Pinon MD [address] [address] Social History Tobacco Use Types Packs/Day Years [...] EST Procedure visit [facility] [address] [place] [address] [place] [phone] 04/18/2025 3:00 PM EST Procedure visit [facility] [address] [phone] 05/17/2025 9:45 AM EST Office Visit [facility] [address] [phone] Esthela Kaye, HOME FIRE ALARM INSTALLER [address] [phone] documented as of this encounter Visit Diagnoses Not on filedocumented in this encounter Care Teams Nascar Racer Relationship Specialty Start Date End Date Brain Cyr DO PCP - General 07/14/18 Norma Rogel, LONI CT Registered Nurse 07/14/18 documented as of this encounter
--- OUTSIDE RECORDS SUMMARY | 2025-03-27 10:16 | XMS_ITS | Encounter Summary ---
Author Organization [facility] Address [address] [place] [address] Care Team Providers Care Sql Programmer Name Role Phone Brain Cyr DO Primary Care Provider [phone] Norma Rogel RN Unavailable Unavailable Reason for Visit * Reason Comments Medication Refill Encounter Details Date Type Department Care Team (Late st Contact Info) Description 12/26/2023 [facility]ill [facility] [address] [phone] Natan Senior PA [address] [address] Closed fracture of right ankle with routine [...] Procedure visit [facility] [address] [phone] 04/18/2025 3:00 PM EST Procedure visit [facility] [address] [phone] 05/17/2025 9:45 AM EST Office Visit [facility] [address] [phone] Esthela Kaye, ANGIE [address] [address] documented as of this encounter Visit Diagnoses Diagnosis Closed fracture of right ankle with routine healing, subsequent encounter documented in this encounter Care Teams Sql Programmer Relationship Specialty Start Date End Date Brain Cyr DO PCP - General 07/14/18 Norma Rogel, LONI CT Registered Nurse 07/14/18 documented as of this encounter
--- OUTSIDE RECORDS SUMMARY | 2025-03-27 10:16 | XMS_ITS | Encounter Summary ---
Author Organization [facility] Address [address] [place] [address] Care Team Providers Care Calculator Operator Name Role Phone Brain Cyr DO Primary Care Provider [phone] Norma Rogel RN Unavailable Unavailable Reason for Visit * Reason Comments Medication Refill Encounter Details Date Type Department Care Team (Late st Contact Info) Description 03/29/2024 [facility]ill [facility] [address] [phone] Jed Pinon MD [address] [address] Closed fracture of right ankle with routine [...] Procedure visit [facility] [address] [phone] 04/18/2025 3:00 PM EST Procedure visit [facility] [address] [phone] 05/17/2025 9:45 AM EST Office Visit [facility] [address] [phone] Esthela Kaye, FUNDER [address] [address] documented as of this encounter Visit Diagnoses Diagnosis Closed fracture of right ankle with routine healing, subsequent encounter documented in this encounter Care Teams Calculator Operator Relationship Specialty Start Date End Date Brain Cyr DO PCP - General 07/14/18 Norma Rogel, LONI CT Registered Nurse 07/14/18 documented as of this encounter
--- OUTSIDE RECORDS SUMMARY | 2025-03-27 10:16 | XMS_ITS | Encounter Summary ---
Author Organization [facility] Address [address] [place] [address] Care Team Providers Care Stereo Equipment Salesperson Name Role Phone Brain Cyr DO Primary Care Provider [phone] Norma Rogel RN Unavailable Unavailable Encounter Details Date Type Department Care Team (Late st Contact Info) Description 05/11/2023 Scanned Document [facility] [address] [place] [address] Orthopedic Surgery, Scan Social History Tobacco [...] Procedure visit [facility] [address] [phone] 04/18/2025 3:00 PM EST Procedure visit [facility] [address] [phone] 05/17/2025 9:45 AM EST Office Visit [facility] 330 [facility] [address] [place] [address] Esthela Kaye, SYSTEM TECHNOLOGIST 326 [facility] [address] [place] [address] documented as of this encounter Procedures Procedure Name Priority Date/Time Associated Diagnosis Comments BOOKING SHEETS-SCAN 05/11/2023 documented in this encounter Results * BOOKING SHEETS-SCAN (05/11/2023) us Scan Orthopedic Surgery HX AMB PROCEDURES Final Result documented in this encounter Visit Diagnoses Not on filedocumented in this encounter Care Teams Stereo Equipment Salesperson Relationship Specialty Start Date End Date Brain Cyr DO PCP - General 07/14/18 Norma Rogel, LONI CT Registered Nurse 07/14/18 documented as of this encounter
--- OUTSIDE RECORDS SUMMARY | 2025-03-27 10:16 | XMS_ITS | Encounter Summary ---
Author Organization [facility] Address [address] [place] [address] Care Team Providers Care Plaster Molder Name Role Phone Ger Brain Payan DO Primary Care Provider [phone] Norma Rogel RN Unavailable Unavailable Encounter Details Date Type Department Care Team (Late Contact Info) Description 11/26/2023 Scanned Document [facility] [address] [phone] Demetrius Gonzalez MD 85 [facility] [address] [place] [address] Social History Tobacco Use Types Packs/Day Years [...] EST Procedure visit [facility] [address] [place] [phone] 04/18/2025 3:00 PM EST Procedure visit [facility] 330 [facility] [address] [place] [address] 05/17/2025 9:45 AM EST Office Visit [facility] 330 [facility] [address] [place] [address] Esthela Kaye, NURSERY HELPER 326 [facility] [address] [place], [place] [phone] documented as of this encounter Procedures Procedure [...] on filedocumented in this encounter Care Teams Plaster Molder Relationship Specialty Start Date End Date Brain Cyr DO PCP - General 07/14/18 Norma Rogel, LONI CT Registered Nurse 07/14/18 documented as of this encounter
--- OUTSIDE RECORDS SUMMARY | 2025-03-27 10:16 | XMS_ITS | Encounter Summary ---
Author Organization [facility] Address [address] [place] [address] Care Team Providers Care [employer] Teacher Name Role Phone Jenn Hu MD Primary Care Provider [phone] Encounter Details Date Type Department Care Team (Late st Contact Info) Description 02/12/[address] [facility] - Main Lab [address] [facility] [place] [address] Jenn Hu MD [address] [place] [address] Vitamin D deficiency, unspecified; Cervicalgia; Weakness; Essential [...] Associated Diagnosis Comments COMPLETE BLOOD COUNT Routine 02/13/2025 5:40 AM EDT Vitamin D deficiency, unspecified Cervicalgia Weakness Essential (primary) hypertension BASIC METABOLIC PANEL Routine 02/13/2025 5:40 AM EDT Vitamin D deficiency, unspecified Cervicalgia Weakness Essential (primary) hypertension documented in this encounter Results * (ABNORMAL) Basic metabolic panel (02/13/2025 5:40 AM EDT) Sodium 142 133 - 145 mmol/L LAB CHEMISTRY METHOD 02/13/2025 2:24 PM EDT [facility] Potassium 3.2(L) 3.5 - 5.5 mmol/L LAB CHEMISTRY METHOD 02/13/2025 2:24 PM EDT [facility] Chloride 109 96 - 110 mmol/L LAB CHEMISTRY METHOD 02/13/2025 2:24 PM T [facility] CO2 24 21 - 32 mmol/L LAB CHEMISTRY METHOD 02/13/2025 2:24 PM EDT [facility] Anion Gap 9 3 - 11 LAB CHEMISTRY METHOD 02/13/2025 2:24 PM EDT [facility] Glucose 68(L) 70 - 100 mg/dL LAB CHEMISTRY METHOD 02/13/2025 2:24 PM EDT [facility] BUN 5 5 - 25 mg/dL LAB CHEMISTRY METHOD 02/13/2025 2:24 PM EDT [facility] Creatinine 0.54(L) 0.70 - 1.30 mg/dL LAB CHEMISTRY METHOD 02/13/2025 2:24 PM EDT [facility] eGFR 112 >=60 mL/min/1. 73m2 LAB CHEMISTRY METHOD 02/13/2025 2:24 PM EDT [facility] Comment:Calculation based on the Chronic Kidney Disease Epidemiology Collaboration (CKD-EPI) equation refit without adjustment for race. BUN/Creatinine Ratio 9.3 LAB CHEMISTRY METHOD 02/13/2025 2:24 PM EDT [facility] Calcium 8.9 8.5 - 10.5 mg/dL LAB CHEMISTRY METHOD 02/13/2025 2:24 PM T [facility] Blood Venous blood specimen / Unknown Venipuncture / Unknown 02/13/2025 5:40 AM EDT 02/13/2025 10:40 AM EDT us Jenn Hu MD LAB BLOOD ORDERABLES Final Resul t [facility] [address] [place] [address], * (ABNORMAL) Complete blood count (02/13/2025 5:40 AM EDT) WBC 8.8 4.8 - 10.8 K/mcL LAB HEMETOLOGY METHOD 02/13/2025 11:08 AM EDT [facility] RBC 3.30(L) 4.50 - 5.50 M/mcL LAB HEMETOLOGY METHOD 02/13/2025 11:08 AM [facility] Hemoglobin 11.2(L) 13.5 - 17.5 g/dL LAB HEMETOLOGY METHOD 02/13/2025 11:08 AM [facility] Hematocrit 32.1(L) 42.0 - 54.0 % LAB HEMETOLOGY METHOD 02/13/2025 11:08 AM [facility] MCV 96.1 79.0 - 98.0 FL LAB HEMETOLOGY METHOD 02/13/2025 11:08 AM [facility] MCH 33.5(H) 27.0 - 32.0 pcg LAB HEMETOLOGY METHOD 02/13/2025 11:08 AM [facility] MCHC 34.9 32.0 - 37.0 g/dL LAB HEMETOLOGY METHOD 02/13/2025 11:08 AM [facility] RDW 11.6 11.0 - 15.0 % LAB HEMETOLOGY METHOD 02/13/2025 11:08 AM [facility] Platelets 337 130 - 400 K/mcL LAB HEMETOLOGY METHOD 02/13/2025 11:08 AM [facility] MPV 9.8 7.0 - 11.0 FL LAB HEMETOLOGY METHOD 02/13/2025 11:08 AM [facility] NRBC 0.0 <1.0 % LAB HEMETOLOGY METHOD 02/13/2025 11:08 AM [facility] NRBC Absolute 0.00 <0.10 K/mcL LAB HEMETOLOGY METHOD 02/13/2025 11:08 AM [facility] Blood Venous blood specimen / Unknown Venipuncture / Unknown 02/13/2025 5:40 AM EDT 02/13/2025 10:41 AM EDT Jenn Hu MD LAB BLOOD ORDERABLES Final Resul t [facility] [address] [place] [address], documented in this encounter Visit Diagnoses Diagnosis Vitamin D deficiency, unspecified Cervicalgia Weakness Other malaise and fatigue Essential (primary) hypertension Unspecified essential hypertension documented in this encounter Care Teams Junior [employer] Teacher Relationship Specialty Start Date End Date Jenn Hu MD [address] [place] [address] [address] [place] [address] PCP - General Geriatric Medicine 02/01/25 documented as of this encounter
--- OUTSIDE RECORDS SUMMARY | 2025-03-27 10:16 | XMS_ITS | Encounter Summary ---
Author Organization [facility] Address [address] [place] [address] Care Team Providers Care Hand Miter Operator Name Role Phone Ger Brain Payan DO Primary Care Provider Norma Rogel RN Unavailable Unavailable Encounter Details Date Type Department Care Team (Late st Contact Info) Description 01/19/2024 Refill [facility] [address] [address] Jed Pinon MD [address] [address] Closed fracture of right ankle with routine [...] EST Procedure visit [facility] [address] [place] [phone] 04/18/2025 3:00 PM EST Procedure visit [facility] [address] [facility] [address] [place] [address] 05/17/2025 9:45 AM EST Office Visit [facility] [address] [phone] Esthela Kaye, OPTOMETRIST ASSISTANT [address] [address] documented as of this encounter Visit Diagnoses Diagnosis Closed fracture of right ankle with routine healing, subsequent encounter documented in this encounter Care Teams Hand Miter Operator Relationship Specialty Start Date End Date Brain Cyr DO PCP - General 07/14/18 Norma Rogel, LONI CT Registered Nurse 07/14/18 documented as of this encounter
--- OUTSIDE RECORDS SUMMARY | 2025-03-27 10:16 | XMS_ITS | Encounter Summary ---
Author Organization [facility] Address [address] [place] [address] Care Team Providers Care Family Preservation Officer Name Role Phone Jenn Hu MD Primary Care Provider [phone] Encounter Details Date Type Department Care Team (Late st Contact Info) Description 02/04/2025 Lab Requisition [facility] - Main Lab [address] [facility] [place] [address] Jenn Hu MD [address] [place] [address] Chronic kidney disease, unspecified Social History Tobacco [...] 5:01 PM EDT Enid Hill RN * [place] Suicide Severity Rating Scale (Screener/Recent Self-Report) Question [...] mmol/L LAB CHEMISTRY METHOD 02/04/2025 12:12 PM T [facility] Potassium 3.1(L) 3.5 - 5.5 mmol/L LAB CHEMISTRY METHOD 02/04/2025 12:12 PM T [facility] Chloride 99 96 - 110 mmol/L LAB CHEMISTRY METHOD 02/04/2025 12:12 PM [facility] CO2 23 21 - 32 mmol/L LAB CHEMISTRY METHOD 02/04/2025 12:12 PM [facility] Anion Gap 10 3 - 11 LAB CHEMISTRY METHOD 02/04/2025 12:12 PM [facility] Glucose 78 70 - 100 mg/dL LAB CHEMISTRY METHOD 02/04/2025 12:12 PM [facility] BUN 66(H) 5 - 25 mg/dL LAB CHEMISTRY METHOD 02/04/2025 12:12 PM [facility] Creatinine 5.04(H) 0.70 - 1.30 mg/dL LAB CHEMISTRY METHOD 02/04/2025 12:12 PM [facility] eGFR 12(L) >=60 mL/min/1. 73m2 LAB CHEMISTRY METHOD 02/04/2025 12:12 PM [facility] Comment:Calculation based on the Chronic Kidney Disease Epidemiology Collaboration (CKD-EPI) equation refit without adjustment for race. BUN/Creatinine Ratio 13.1 LAB CHEMISTRY METHOD 02/04/2025 12:12 PM [facility] Calcium 8.9 8.5 - 10.5 mg/dL LAB CHEMISTRY METHOD 02/04/2025 12:12 PM [facility] Blood Venous blood specimen / Unknown Venipuncture / Unknown 02/04/2025 9:30 AM EDT 02/04/2025 11:17 AM EDT us Jenn Hu MD LAB BLOOD ORDERABLES Final Resul t [facility] [address] [place] [address], documented in this encounter Visit Diagnoses Diagnosis Chronic kidney disease, unspecified documented in this encounter Additional Health Concerns Infection Onset Date Last Indicated Resolved Time Respiratory Rule-Out 02/06/2025 02/07/2025 025 1:47 AM EDT COVID-19 Rule-Out 02/06/2025 02/07/2025 02/07/2025 1:47 AM EDT documented as of this encounter Care Teams Family Preservation Officer Relationship Specialty Start Date End Date Jenn Hu MD [address] [place] [address] [address] [place] [address] PCP - General Geriatric Medicine 02/01/25 documented as of this encounter
--- OUTSIDE RECORDS SUMMARY | 2025-03-27 10:17 | XMS_ITS | Encounter Summary ---
Author Organization [facility] Address [address] [place] [address] Care Team Providers Care Cold Header Name Role Phone Izabella Francis APRN Unavailable [phone] Alo Mcgrath Primary Care Provider [phone] Encounter Details Date Type Department Care Team (Late st Contact Info) Description 05/14/2023 Orders Only [facility] Department of Family Medicine [address] [place] [address] Brain Cyr F, DO Elevated PSA (Primary Dx); Essential hypertension; [...] Care Team (Late st Contact Info) Description 03/29/2025 11:50 AM EDT Office Visit [facility] of [facility] [address] [place] [phone] Alo Mcgrath PA [address] [facility] [address] [place] [address] 03/31/2025 1:00 PM EDT Office Visit [facility] Department of Vascular Surgery [address] [place] [phone] Alfredo Moses MD [address] [place] [phone] documented as of this encounter Visit Diagnoses Diagnosis Elevated PSA- Primary Elevated prostate specific antigen (PSA) Essential hypertension Unspecified essential hypertension Hypertensive heart disease without heart failure Unspecified hypertensive heart disease without heart failure Noncompliance Obstructive sleep apnea syndrome Obstructive sleep apnea (adult) (pediatric) Primary osteoarthritis involving multiple joints documented in this encounter Care Teams Cold Header Relationship Specialty Start Date End Date Izabella Francis APRN PCP - Insurance Payer PCP 06/01/23 Alo Mcgrath PA 1 [facility] [address] [place] [address] PCP - General Internal Medicine 02/21/25 documented as of this encounter
--- OUTSIDE RECORDS SUMMARY | 2025-03-27 10:17 | XMS_ITS | Encounter Summary ---
Author Organization [facility] Address [address] [place] [address] Care Team Providers Care Insurance Account Specialist Name Role Phone Brain Cyr DO Primary Care Provider Norma Rogel RN Unavailable Unavailable Encounter Details Date Type Department Care Team (Late st Contact Info) Description 02/27/2025 Scanned Document [facility] at Home [address] [facility] [address] [place] [address] Provider, Generic Social History Tobacco Use Types Packs/Day Years Used Date Smoking Tobacco: Former Cigarettes 1 10 0 07/14/1989 - 07/14/1999 Smokeless Tobacco: Never Alcohol Use Standard Drinks/Week Comments Yes 14 (1 standard drink = 0.6 oz pure alcohol) 2 vy, 2 shots liquor nightly, will stop pre op . Last drink 6 days ago. [facility] Utilities Answer Date Recorded In the past 12 months has [employer], [email or web address], oil, or water [employer] threatened to shut off services in your [...] any time in the past 12 m [facility], were you homeless or living in a halfway (including now)? No 01/10/2025 Sex and Gender [...] Procedure visit [facility] [address] [address] 04/18/2025 3:00 PM EST Procedure visit [facility] [address] [address] 05/17/2025 9:45 AM EST Office Visit [facility] [address] [place] [phone] Esthela Kaye, STAFF MIDWIFE/APPRENTICESHIP DIRECTOR [address] [address] documented as of this encounter Visit Diagnoses Not on filedocumented in this encounter Care Teams Insurance Account Specialist Relationship Specialty Start Date End Date Brain Cyr DO PCP - General 07/14/18 Norma Rogel, LONI CT Registered Nurse 07/14/18 documented as of this encounter
--- OUTSIDE RECORDS SUMMARY | 2025-03-27 10:17 | XMS_ITS | Clinical Summary ---
Author Organization [facility] Address [address] [place] [address] Care Team Providers Care Whipper Beater Name Role Phone Brain Cyr DO Primary Care Provider [phone] Norma Rogel RN Unavailable Unavailable Allergies No [...] (10 mg total) by mouth daily. Active hydrochlorothiaz herlinda (MICROZIDE) 12.5 MG capsule Take 1 capsule [...] total) by mouth daily. Active Vitamin D3 (CHOLECALICEROL) 2000 units tablet Take 1 tablet (2,000 Units total) by mouth daily. Active methocarbamol (ROBAXIN) 750 MG tablet Take 1 tablet (750 mg total) by mouth 2 (two) times a day as needed for muscle spasms. 5 Active naproxen (NAPROSYN) 500 MG tablet Take 1 tablet (500 mg total) by mouth 2 times daily (every 12 hours) as needed for mild pain or moderate pain. 5 Active predniSONE (DELTASONE) 20 MG tablet Take 1 tablet (20 mg total) by mouth 2 (two) times a day. 5 Active tamsulosin (FLOMAX) 0.4 MG capsuleIndicatio ns:Benign prostatic hyperplasia with urinary retention Take 2 capsules (0.8 mg total) by mouth daily. 180 capsule 3 5 Active Active Problems Problem Noted Date Diagnosed [...] Encounters Date Type Department Care Team Description 03/24/2025 2:30 PM EDT Procedure visit [facility] [address] [place] [phone] Venu Mantilla RN Encounter for Phoenix catheter removal (Primary Dx); Urinary retention 03/24/2025 8:00 AM EDT Procedure visit [facility] [address] [place] [phone] Venu Mantilla RN Encounter for Phoenix catheter removal (Primary Dx) 03/24/2025 Travel 03/23/2025 Scanned Document [facility] [place] [address] [address] Provider, Generic 03/22/2025 Scanned Document [facility] [place] [address] [place] [address] Provider, Generic 03/21/2025 Scanned Document [facility] [address] [place] [address] Provider, Generic 03/17/2025 Scanned Document [facility] [address] [place] [address] Provider, Generic 03/15/2025 Scanned Document [facility] [address] [place] [address] Provider, Generic 03/14/2025 Scanned Document [facility] [address] [place] [address] Provider, Generic 03/13/2025 Scanned Document [facility] [address] [place] [address] Provider, Generic 03/11/2025 Scanned Document [facility] [address] [place] [address] Provider, Generic 03/10/2025 Scanned Document [facility] [address] [place] [address] Provider, Generic 03/10/2025 Telephone [facility] [address] [place] [phone] Adis Daniels MD 03/08/2025 Scanned Document [facility] [address] [place] [address] Provider, Generic 03/07/2025 Scanned Document [facility] [address] [place] [address] Provider, Generic 03/06/2025 Scanned Document [facility] [address] [place] [address] Provider, Generic 03/04/2025 Scanned Document [facility] [address] [place] [address] Provider, Generic 03/03/2025 Scanned Document [facility] [address] [place] [address] Provider, Generic 03/02/2025 4:00 PM EDT Procedure visit [facility] [address] [place] [address], [place] [address] Keith Kumar LPN Benign prostatic hyperplasia with urinary retention (Primary Dx) 03/02/2025 10:00 AM EDT Procedure visit [facility] [address] [place] [address], [place] [address] Keith Kumar LPN Encounter for Phoenix catheter removal (Primary Dx) 03/02/2025 Scanned Document [facility] [address] [place] [address] Provider, Generic 03/02/2025 Telephone [facility] [address] [place] [address], [place] [address] Imani Pinzon PA-C 03/02/2025 Travel 03/01/2025 Telephone [facility] [address] [place] [address], [place] [address] Esthela Kaye APRN 02/28/2025 Scanned Document [facility] [address] [place] [address] Provider, Generic 02/27/2025 Scanned Document [facility] [address] [place] [address] Provider, Generic 02/21/2025 Scanned Document [facility] [address] [place] [address] Provider, Generic 02/19/2025 Scanned Document [facility] [address] [facility] [address] [place] [address], [place] [address] Provider, Generic 02/18/2025 Scanned Document [facility] [address] [place] [address] Provider, Generic 02/17/2025 Scanned Document [facility] [address] [place] [address] Provider, Generic 02/16/2025 1:30 PM EDT Clinical Support [facility] [address] [place] [phone] Rocio Amaral RN Benign prostatic hyperplasia with urinary retention (Primary Dx) 02/16/2025 Orders Only [facility] [address] [phone] Esthela Kaye APRN Benign prostatic hyperplasia with urinary retention 02/16/2025 Scanned Document [facility] [address] [place] [address] Provider, Generic 02/15/2025 7:30 AM EDT Office Visit [facility] [address] [place] [phone] Esthela Kaye APRN Benign prostatic hyperplasia with urinary retention (Primary Dx); Indwelling Phoenix catheter present 02/15/2025 Telephone [facility] [address] [phone] Esthela Kaye APRN 02/15/2025 Travel 01/09/2025 1:54 PM EDT - 01/10/2025 4:58 PM EDT Hospital Encounter [facility] [address] [place] [address] Alxe Brar MD Lu, Hairong, MD Cervical spinal [...] op . Last drink 6 days ago. [facility] Utilities Answer Date Recorded In the past 12 months has [employer], oil, or water [employer] threatened to shut off services in your [...] any time in the past 12 m [facility], were you homeless or living in a senior care (including now)? No 01/10/2025 Sex and Gender Information Value Date Recorded Sex Assigned at Male 05/31/2024 9:05 AM EST Legal Sex Male 2:17 PM EDT Gender Identity Male 05/31/2024 9:05 AM EST Sexual Orientation Heterosexual (straight) 05/31 9:05 AM EST Last Filed Vital Signs Vital Sign Reading Time Taken Comments Blood Pressure 142/76 02/15/2025 7:00 AM EDT Pulse 77 02/15/2025 7:00 AM EDT Temperature 37.4 C (99.4 F) 01/10/2025 3:59 PM EDT Respiratory Rate 16 01/10/2025 3:59 PM EDT Oxygen Saturation 96% 01/10/2025 3:59 PM EDT Inhaled Oxygen Concentration - - Weight 103 kg (226 lb 3.1 oz) 01/09/2025 1:13 PM EDT Height 162.6 cm (5' 4.02 ) 01/10/2025 12:00 AM E DT Body Mass Index 38.81 01/09/2025 1:13 PM EDT Plan of Treatment Upcoming Encounters Date Type Department Care Team (Late st Contact Info) Description 04/18/2025 9:00 AM EST Procedure visit [facility] [address] [address] 04/18/2025 3:00 PM EST Procedure visit [facility] [address] [address] 05/17/2025 9:45 AM EST Office Visit [facility] [address] [address] Esthela Kaye, PROOF PRESS OPERATOR [address] [address] Health Maintenance Due Date Last Done Comments Hepatitis C Virus Screening 1961 HIV Screening 1974 DTaP/Tdap/Td Vaccines (1 - Tdap) 1980 Pneumococcal Vaccines 50+ (1 of 1 - PCV) 12/15/2011 RSV Vaccine 50 years and older and Patients (1 - Risk 50-74 years 1-dose series) 12/15/2011 Zoster (Shingles) Vaccine (1 of 2) 12/15/2011 Influenza Vaccine 12/30/2024 04/26/2019, , 07/14/2017, Additional history exists COVID-19 Vaccine ( - season) 2025 Colonoscopy 11/25/2033 11/26/2023 Hepatitis B Vaccines Aged Out No long er eligible based on patient's age to complete this topic Medical Devices Implanted Type Area Hvac Designer Device Identifier Shelf Expiration Date Model / Serial / Lot [id number] Cement [employer] R 40gm Grn - [id number] Implanted:Qty : 2 on 05/12/2019 by Reagan Deleon MD at [facility] Cement Right: Knee [employer] 07/29/2022 [id number] / / [id number] Shell Acetabular 54mm Hip Prim Ch Trlg Sterl - [id number] Implanted:Qty : 1 on 08/18/2018 by Reagan Deleon MD at [facility] Joint Prosthesis Right: Hip [employer] [id number] 05/31/2028 [id number] / / [id number] Liner Acetabular Trlg Std Neutral 6.3mm 50/52/54mm 32mm - [id number] Implanted:Qty : 1 on 08/18/2018 by Reagan Deleon MD at [facility] Joint Prosthesis Right: Hip [employer] [id number] 02/28/2023 [id number] / / [id number] Stem Femoral 124mm 12.5mm Prim Zm M/L Taper Tiv Por 05/14 50 - [id number] Implanted:Qty : 1 on 08/18/2018 by Reagan Deleon MD at [facility] Joint Prosthesis Right: Hip [employer] [id number] 02/29/2028 [id number] / / [id number] Head Femoral 0mm 05/14 Taper 32mm Hip Blx D Trlg It Contin - [id number] Implanted:Qty : 1 on 08/18/2018 by Reagan Deleon MD at [facility] Joint Prosthesis Right: Hip [employer] [id number] 02/29/2028 [id number] / / [id number] Restrictor Bncmnt 25mm Ace 16-21mm Hip Femoral Plug Sterl - [id number] Implanted:Qty : 1 on 05/12/2019 by Reagan Deleon MD at [facility] Joint Prosthesis Right: Knee [employer] [id number] 03/08/2029 [id number] / / [id number] Component Femoral 8 Std Knee Right Crcte Rtn Cmnt Persona - [id number] Implanted:Qty : 1 on 05/12/2019 by Reagan Deleon MD at [facility] Joint Prosthesis Right: Knee [employer] [id number] 02/28/2029 [id number] / / [id number] Component Patellar 35mm Persona Alply Knee Lf - [id number] Implanted:Qty : 1 on 05/12/2019 by Reagan Deleon MD at [facility] Joint Prosthesis Right: Knee [employer] [id number] 10/29/2026 [id number] / / [id number] Baseplate Tibial Persona Ntr Tibia 5d F Knee Right Stem - [id number] Implanted:Qty : 1 on 05/12/2019 by Reagan Deleon MD at [facility] Joint Prosthesis Right: Knee [employer] [id number] 11/28/2028 [id number] / / [id number] Insert Articular 3-11 E-F 11mm Knee Right Crcte Rtn Polyethe - [id number] Implanted:Qty : 1 on 05/12/2019 by Reagan Deleon MD at [facility] Joint Prosthesis Right: Knee [employer] [id number] 11/28/2026 [id number] / / [id number] Screw Bone Acetabular Jarvis Trlg 40mm 6.5mm Slftp Sterl - [id number] Implanted:Qty : 1 on 08/18/2018 by Reagan Deleon MD at [facility] Screw Right: Hip [employer] [id number] 05/31/2028 [id number] / / [id number] Procedures Procedure Name Priority Date/Time Associated Diagnosis Comments POCT BLADDER SCAN Routine 03/24/2025 2:4 1 PM EDT Encounter for Phoenix catheter removal POCT BLADDER SCAN Routine 03/02/2025 4:3 6 PM EDT Benign prostatic hyperplasia with urinary retention BASIC METABOLIC PANEL Routine 02/27/2025 10:25 AM EDT Benign prostatic hyperplasia with urinary retention COMPLETE BLOOD COUNT, WITH DIFFERENTIAL Routine 02/27/2025 10:25 AM EDT Benign prostatic hyperplasia with urinary retention POCT BLADDER SCAN Routine 02/16/2025 4:4 8 PM EDT Benign prostatic hyperplasia with urinary retention XR CERVICAL SPINE 2 OR 3 VIEWS [...] Recently Relevant to Health Maintenance Results * POCT Bladder Scan (03/24/2025 2:41 PM EDT) Only the most recent of3 resultswithin the time period is included. Bladder Scan, Urine Volume 906 cc Urine 03/24/2025 2:41 PM EDT Esthela Kaye APRN POCT ORDERABLES - IMAGING Final Result * (ABNORMAL) Complete Blood Count, with Differential (02/27/2025 10:25 AM EDT) Only the most recent of2 resultswithin the time period is included. Pathologist [facility] White Blood Cell Count 8.8 3.8 - 10.8 Thousand/ uL [facility] Red Blood Cell Count 4.07(L) 4.20 - 5.80 Million/u L [facility] Hemoglobin 13.1(L) 13.2 - 17.1 g/dL [facility] Hematocrit 39.8 38.5 - 50.0 % [facility] [facility] MCV 97.8 80.0 - 100.0 fL [facility] MCH 32.2 27.0 - 33.0 pg [facility] [facility] MCHC 32.9 32.0 - 36.0 g/dL [facility] Comment: For adults, a slight decrease in the calculated MCHC value (in the range of 30 to 32 g/dL) is most likely not clinically significant; however, it should be interpreted with caution in correlation with other red cell parameters and the patient's clinical condition. RDW 11.9 11.0 - 15.0 % [facility] Platelet Count 292 140 - 400 Thousand/ uL [facility] MPV 9.9 7.5 - 12.5 fL [facility] Abs Neutrophils Auto 5,852 1,500 - 7,800 cells/uL [facility] Abs Lymphocytes Auto 1,874 850 - 3,900 cells/uL [facility] Abs Monocytes Auto 625 200 - 950 cells/uL [facility] Abs Eosinophils Auto 405 15 - 500 cells/uL [facility] Abs Basophils Auto 44 0 - 200 cells/uL [facility] Neutrophils Auto 66.5 % [facility] Lymphocytes Auto 21.3 % [facility] Monocytes Auto 7.1 % [facility] Eosinophils Auto 4.6 % Que [facility] Basophils Auto 0.5 % [facility] Blood Blood specimen / Unknown 02/27/2025 10:25 AM EDT 02/27/2025 10:25 AM EDT Narrative [facility] - 02/28/2025 11:10 AM EDT FASTING:NO FASTING: NO Esthela Kaye APRN LAB BLOOD ORDERABLES Final Result [facility] [address] [place] [phone] * (ABNORMAL) Basic Metabolic Panel (02/27/2025 10:25 AM EDT) Glucose 145(H) 65 - 139 mg/dL [facility] Comment: Non-fasting reference interval Blood Urea Nitrogen (BUN) 9 7 - 25 mg/dL [facility] Creatinine 0.73 0.70 - 1.35 mg/dL [facility] Creatinine w/ eGFR 102 > OR = 60 mL/min/1. 73m2 [facility] BUN/Creatinine Ratio SEE NOTE: 6 - 22 (calc) [facility] Comment: Not Reported: BUN and Creatinine are within reference range. Sodium 141 135 - 146 mmol/L [facility] Potassium 3.7 3.5 - 5.3 mmol/L [facility] Chloride 107 98 - 110 mmol/L [facility] CO2 27 20 - 32 mmol/L [facility] Calcium 9.4 8.6 - 10.3 mg/dL [facility] Blood Blood specimen / Unknown 02/27/2025 10:25 AM EDT 02/27/2025 10:25 AM EDT Narrative [facility] - 02/28/2025 11:10 AM EDT FASTING:NO FASTING: NO us Esthela Kaye PROOF PRESS OPERATOR LAB BLOOD ORDERABLES Final Result [facility] [address] [place] [phone] * XR Cervical spine 2 or 3 [...] grade I anterolisthesis of C3 on C4. Izabella MARIEE [facility] ORDLos RAMOS Final Result * MRI Cervical spine w/o [...] Critical finding has been communicated to Radiology Ceramics Artist for provider notification via the [employer] Actionable Findings Application on 01/09/2025 8:57 PM, Message ID [id number]. Narrative 01/09/2025 8:57 PM EDT EXAM: MRI [...] Critical finding has been communicated to Radiology Ceramics Artist forprovider notification via the [employer] Actionable FindingsApplication on 01/09/2025 8:57 PM, Message ID [id number]. us Alex Brar MD IMG MRI ORDERABLES [...] appear normal. Lung apices are clear. Specific [id number]: C2-C3: No spinal canal stenosis. Severe facet [...] appear normal. Lung apices are clear. Specific [id number]: C2-C3: No spinal canal stenosis. Severe facet [...] MRI of the cervical spine without contrast. us Izabella MARIEE IMG CT ORDERABLES Final Res ult * Magnesium (01/09/2025 2:56 PM EDT) Pathologist [facility] Magnesium 2.0 1.6 - 2.7 mg/dL 01/09/2025 3:47 PM EDT [facility] Blood Blood specimen / Unknown 01/09/2025 2:56 PM EDT 01/09/2025 3:17 PM EDT us Izabella MARIEE LAB BLOOD ORDERABLES Final Result Performing Organization Address City/State/[facility] Co de Phone Number [facility] [address] [place] [address], [facility] [address] [place] [address] * (ABNORMAL) Comprehensive Metabolic Panel (01/09/2025 2:56 PM EDT) Glucose 235(H) 65 - 99 mg/dL 01/09/2025 3:47 PM EDT [facility] Comment:Fasting: <100 mg/dL, Non-Fasting: <200 mg/dL (ADA 2005) Blood Urea Nitrogen (BUN) 17 8 - 21 mg/dL 01/09/2025 3:47 PM EDT [facility] Creatinine 0.7 0.5 - 1.3 mg/dL 01/09/2025 3:47 PM EDT [facility] eGFR >90 >59 01/09/2025 3:47 PM EDT [facility] Comment:CKD-EPI (2020) in mL /min/1.73 sq meters. Sodium 144 136 - 145 mmol/L 01/09/2025 3:47 PM EDT [facility] Potassium 3.7 3.4 - 5.3 mmol/L 01/09/2025 3:47 PM EDT [facility] Chloride 104 98 - 107 mmol/L 01/09/2025 3:47 PM EDT [facility] CO2 22 22 - 33 mmol/L 01/09/2025 3:47 PM EDT [facility] Calcium 9.3 8.7 - 10.5 mg/dL 01/09/2025 3:47 PM EDT [facility] Alkaline Phosphatase 87 45 - 128 U/L 01/09/2025 3:47 PM EDT [facility] Aspartate Aminotrans (AST) 40 10 - 55 U/L 01/09/2025 3:47 PM EDT [facility] Comment:Specimen hemolyzed. Results may be artifactually elevated. Alanine Aminotrans (ALT) 32 10 - 55 U/L 01/09/2025 3:47 PM EDT [facility] Bilirubin, Total 0.5 0.2 - 1.0 mg/dL 01/09/2025 3:47 PM EDT [facility] Protein, Total 7.0 6.3 - 8.3 g/dL 01/09/2025 3:47 PM EDT [facility] Albumin 3.9 3.4 - 4.8 g/dL 01/09/2025 3:47 PM EDT [facility] BUN/Creatinine Ratio 24 10.0 - 25.0 Ratio 01/09/2025 3:47 PM EDT [facility] Globulin 3.1 1.5 - 3.9 g/dL 01/09/2025 3:47 PM EDT [facility] Albumin/Globulin Ratio 1.3 Ratio 01/09/2025 3:47 PM EDT [facility] Anion Gap 18(H) 7 - 17 01/09/2025 3:47 PM EDT [facility] Blood Blood specimen / Unknown 01/09/2025 2:56 PM EDT 01/09/2025 3:17 PM EDT Izabella MARIEE LAB BLOOD ORDERABLES Final Result [facility] [address] [place] [address], [facility] [address] [place] [address] * Lyme IgG/IgM with Reflex to ISABELLE (01/09/2025 2:53 PM EDT) Lyme IgG/IgM Antibody Screen Negative Negative 01/11/2025 10:42 AM EDT [facility] Comment: No antibodies to Borrelia burgdorferi detected. Consider alternative diagnosis. If the patient presents with signs/symptoms consistent with Lyme disease (B. burgdorferi) for <30 days, consider collecting and testing a second sample two to four weeks later. Blood Blood specimen / Unknown 01/09/2025 2:53 PM EDT 01/09/2025 3:17 PM EDT Izabella Bazzi PA LAB BLOOD ORDERABLES Final Result [facility] [address] [place] [address], * HX GASTROENTEROLOGY COLONOSCOPY-SCAN (11/26/2023 11:14 AM EDT) Demetrius Gonzalez MD HX AMB PROCEDURES Final Resu lt from Last 3 Months or Most Recently Relevant to Health Maintenance Insurance [facility] INDIVIDUAL EXCHANGE PPO [employer]Hit INDIVIDUAL EXCHANGE PPO [employer] INDIVIDUAL EXCHANGE PPO Advance Directives * Full Code (Latest Code [...] 3:19 PM 05/12/2019 9:17 AM Care Teams Whipper Beater Relationship Specialty Start Date End Date Brain Cyr DO PCP - General 07/14/18 Norma Rogel, RN [place] Registered Nurse 07/14/18
--- OUTSIDE RECORDS SUMMARY | 2025-03-27 10:17 | XMS_ITS | Encounter Summary ---
Author Organization [facility] Address [address] [place] [address] Care Team Providers Care Fancy Sewer Name Role Phone Brain Cyr DO Primary Care Provider [phone] Nroma Rogel RN Unavailable Unavailable Encounter Details Date Type Department Care Team (Late st Contact Info) Description 03/03/2025 Scanned Document [facility] [address] [facility] [address] [place] [address] Provider, Generic Social History Tobacco Use Types Packs/Day Years Used Date Smoking Tobacco: Former Cigarettes 1 10 0 07/14/1989 - 07/14/1999 Smokeless Tobacco: Never Alcohol Use Standard Drinks/Week Comments Yes 14 (1 standard drink = 0.6 oz pure alcohol) 2 vy, 2 shots liquor nightly, will stop pre op . Last drink 6 days ago. [facility] Utilities Answer Date Recorded In the past 12 months has [employer], oil, or water [employer] threatened to shut off services in your [...] time in the past [address] [facility], were you homeless or living in a residential (including now)? No 01/10/2025 Sex and Gender [...] Procedure visit [facility] [address] [address] 04/18/2025 3:00 PM EST Procedure visit [facility] [address] [address] 05/17/2025 9:45 AM EST Office Visit [facility] [address] [place] [phone] Esthela Kaye, LABORATORY [employer] GLASS BLOWER [address] [address] documented as of this encounter Visit Diagnoses Not on filedocumented in this encounter Care Teams Fancy Sewer Relationship Specialty Start Date End Date Brain Cyr DO PCP - General 07/14/18 Norma Rogel, LONI [place] Registered Nurse 07/14/18 documented as of this encounter
--- OUTSIDE RECORDS SUMMARY | 2025-03-27 10:17 | XMS_ITS | Encounter Summary ---
Author Organization [facility] Address [address] [place] [address] Care Team Providers Care Coffee Weigher Name Role Phone Brain Cyr DO Primary Care Provider [phone] Norma Rogel RN Unavailable Unavailable Encounter Details Date Type Department Care Team (Late st Contact Info) Description 03/07/2025 Scanned Document [facility] [address] [facility] [address] [place] [address] Provider, Generic Social History Tobacco Use Types Packs/Day Years Used Date Smoking Tobacco: Former Cigarettes 1 10 0 07/14/1989 - 07/14/1999 Smokeless Tobacco: Never Alcohol Use Standard Drinks/Week Comments Yes 14 (1 standard drink = 0.6 oz pure alcohol) 2 vy, 2 shots liquor nightly, will stop pre op . Last drink 6 days ago. [facility] Utilities Answer Date Recorded In the past 12 months has [employer], [employer] oil, or water [employer] threatened to shut off services in your [...] any time in the past 12 m [facility], were you homeless or living in a [facility] (including now)? No 01/10/2025 Sex and Gender [...] Procedure visit [facility] [address] [address] 04/18/2025 3:00 PM EST Procedure visit [facility] [address] [address] 05/17/2025 9:45 AM EST Office Visit [facility] [address] [place] [phone] Esthela Kaye, BOTTLE SORTER [address] [address] documented as of this encounter Visit Diagnoses Not on filedocumented in this encounter Care Teams Coffee Weigher Relationship Specialty Start Date End Date Brain Cyr DO PCP - General 07/14/18 Norma Rogel, LONI [place] Registered Nurse 07/14/18 documented as of this encounter
--- OUTSIDE RECORDS SUMMARY | 2025-03-27 10:17 | XMS_ITS | Encounter Summary ---
Author Organization [facility] Address [address] [place] [address] Care Team Providers Care Fur Polisher Name Role Phone Brain Cyr DO Primary Care Provider [phone] Norma Rogel RN Unavailable Unavailable Encounter Details Date Type Department Care Team (Late st Contact Info) Description 03/04/2025 Scanned Document [facility] at Home [address] [facility] [address] [place] [address] Provider, Generic Social History Tobacco Use Types Packs/Day Years Used Date Smoking Tobacco: Former Cigarettes 1 10 0 07/14/1989 - 07/14/1999 Smokeless Tobacco: Never Alcohol Use Standard Drinks/Week Comments Yes 14 (1 standard drink = 0.6 oz pure alcohol) 2 vy, 2 shots liquor nightly, will stop pre op . Last drink 6 days ago. [facility] Utilities Answer Date Recorded In the past 12 months has [employer], [employer], oil, or water [employer] threatened to shut off services in your [...] any time in the past 12 m [facility], were you homeless or living in a [...] Procedure visit [facility] [address] [address] 04/18/2025 3:00 PM EST Procedure visit [facility] [address] [address] 05/17/2025 9:45 AM EST Office Visit [facility] [address] [place] [phone] Esthela Kaye, ALUM MIXER [address] [address] documented as of this encounter Visit Diagnoses Not on filedocumented in this encounter Care Teams Fur Polisher Relationship Specialty Start Date End Date Brain Cyr DO PCP - General 07/14/18 Norma Rogel, LONI [place] Registered Nurse 07/14/18 documented as of this encounter
--- OUTSIDE RECORDS SUMMARY | 2025-03-27 10:17 | XMS_ITS | Encounter Summary ---
Author Organization [facility] Address [address] [place] [address] Care Team Providers Care Computer Lab Aide Name Role Phone Brain Cyr DO Primary Care Provider [phone] Norma Rogel RN Unavailable Unavailable Encounter Details Date Type Department Care Team (Late st Contact Info) Description 02/19/2025 Scanned Document [facility] at Home [address] [facility] [address] [place] [address] Provider, Generic Social History Tobacco Use Types Packs/Day Years Used Date Smoking Tobacco: Former Cigarettes 1 10 0 07/14/1989 - 07/14/1999 Smokeless Tobacco: Never Alcohol Use Standard Drinks/Week Comments Yes 14 (1 standard drink = 0.6 oz pure alcohol) 2 vy, 2 shots liquor nightly, will stop pre op . Last drink 6 days ago. [facility] Utilities Answer Date Recorded In the past 12 months has [employer], [employer], oil, or water [employer] threatened to shut off services in your [...] any time in the past 12 m [facility], were you homeless or living in a intermediate (including now)? No 01/10/2025 Sex and Gender [...] Procedure visit [facility] [address] [address] 04/18/2025 3:00 PM EST Procedure visit [facility] [address] [address] 05/17/2025 9:45 AM EST Office Visit [facility] [address] [place] [phone] Esthela Kaye, FLOOR FRAMER [address] [address] documented as of this encounter Visit Diagnoses Not on filedocumented in this encounter Care Teams Computer Lab Aide Relationship Specialty Start Date End Date Brain Cyr DO PCP - General 07/14/18 Norma Rogel, LONI [place] Registered Nurse 07/14/18 documented as of this encounter
--- OUTSIDE RECORDS SUMMARY | 2025-03-27 10:17 | XMS_ITS | Encounter Summary ---
Author Organization [facility] Address [address] [place] [address] Care Team Providers Care Shoe Laster Name Role Phone Brain Cyr DO Primary Care Provider [phone] Norma Rogel RN Unavailable Unavailable Encounter Details Date Type Department Care Team (Late st Contact Info) Description 03/02/2025 Scanned Document [facility] at Home [address] [facility] [address] [place] [address] Provider, Generic Social History Tobacco Use Types Packs/Day Years Used Date Smoking Tobacco: Former Cigarettes 1 10 0 07/14/1989 - 07/14/1999 Smokeless Tobacco: Never Alcohol Use Standard Drinks/Week Comments Yes 14 (1 standard drink = 0.6 oz pure alcohol) 2 vy, 2 shots liquor nightly, will stop pre op . Last drink 6 days ago. [facility] Utilities Answer Date Recorded In the past 12 months has [employer], [employer], oil, or water [employer] threatened to shut off services in your [...] time in the past 12 m [facility], were you homeless or living in a long term (including now)? No 01/10/2025 Sex and Gender [...] Procedure visit [facility] [address] [address] 04/18/2025 3:00 PM EST Procedure visit [facility] [address] [address] 05/17/2025 9:45 AM EST Office Visit [facility] [address] [place] [phone] Esthela Kaye, REAL ESTATE OFFICE SUPERVISOR [address] [address] documented as of this encounter Visit Diagnoses Not on filedocumented in this encounter Care Teams Shoe Laster Relationship Specialty Start Date End Date Brain Cyr DO PCP - General 07/14/18 Norma Rogel, LONI [place] Registered Nurse 07/14/18 documented as of this encounter
--- OUTSIDE RECORDS SUMMARY | 2025-03-27 10:17 | XMS_ITS | Encounter Summary ---
Author Organization [facility] Address [address] [place] [address] Care Team Providers Care Various Exceptionalities Teacher Name Role Phone Brain Cyr DO Primary Care Provider [phone] Norma Rogel RN Unavailable Unavailable Encounter Details Date Type Department Care Team (Late st Contact Info) Description 02/17/2025 Scanned Document [facility] at Home [address] [facility] [address] [place] [address] Provider, Generic Social History Tobacco Use Types Packs/Day Years Used Date Smoking Tobacco: Former Cigarettes 1 10 0 07/14/1989 - 07/14/1999 Smokeless Tobacco: Never Alcohol Use Standard Drinks/Week Comments Yes 14 (1 standard drink = 0.6 oz pure alcohol) 2 vy, 2 shots liquor nightly, will stop pre op . Last drink 6 days ago. [facility] Utilities Answer Date Recorded In the past 12 months has [employer], [employer], oil, or water [employer] threatened to shut off services in your [...] any time in the past 12 m [facility], were you homeless or living in a jail (including now)? No 01/10/2025 Sex and Gender [...] Procedure visit [facility] [address] [address] 04/18/2025 3:00 PM EST Procedure visit [facility] [address] [address] 05/17/2025 9:45 AM EST Office Visit [facility] [address] [place] [phone] Esthela Kaye, SINGLE STROKE PREFORMER [address] [address] documented as of this encounter Visit Diagnoses Not on filedocumented in this encounter Care Teams Various Exceptionalities Teacher Relationship Specialty Start Date End Date Brain Cyr DO PCP - General 07/14/18 Norma Rogel, LONI [place] Registered Nurse 07/14/18 documented as of this encounter
--- OUTSIDE RECORDS SUMMARY | 2025-03-27 10:17 | XMS_ITS | Encounter Summary ---
Author Organization [facility] Address [address] [place] [address] Care Team Providers Care Patient Appointment Coordinator Name Role Phone Brain Cyr DO Primary Care Provider [phone] Norma Rogel RN Unavailable Unavailable Encounter Details Date Type Department Care Team (Late st Contact Info) Description 02/18/2025 Scanned Document [facility] at Home [address] [facility] [address] [place] [address] Provider, Generic Social History Tobacco Use Types Packs/Day Years Used Date Smoking Tobacco: Former Cigarettes 1 10 0 07/14/1989 - 07/14/1999 Smokeless Tobacco: Never Alcohol Use Standard Drinks/Week Comments Yes 14 (1 standard drink = 0.6 oz pure alcohol) 2 vy, 2 shots liquor nightly, will stop pre op . Last drink 6 days ago. [facility] Utilities Answer Date Recorded In the past 12 months has [employer], [employer], oil, or water [employer] threatened to shut off services in your [...] any time in the past 12 m [facility], were you homeless or living in a group home (including now)? No 01/10/2025 Sex and Gender [...] Procedure visit [facility] [address] [address] 04/18/2025 3:00 PM EST Procedure visit [facility] [address] [address] 05/17/2025 9:45 AM EST Office Visit [facility] [address] [place] [phone] Esthela Kaye, STEWARD/STEWARDESS RAILROAD DINING CAR [address] [address] documented as of this encounter Visit Diagnoses Not on filedocumented in this encounter Care Teams Patient Appointment Coordinator Relationship Specialty Start Date End Date Brain Cyr DO PCP - General 07/14/18 Norma Rogel, LONI [place] Registered Nurse 07/14/18 documented as of this encounter
--- OUTSIDE RECORDS SUMMARY | 2025-03-27 10:17 | XMS_ITS | Encounter Summary ---
Author Organization [facility] Address [address] [place] [address] Care Team Providers Care Rn Lpn Cna Name Role Phone Brain Cyr DO Primary Care Provider [phone] Norma Rogel RN Unavailable Unavailable Encounter Details Date Type Department Care Team (Late st Contact Info) Description 02/21/2025 Scanned Document [facility] at Home [address] [facility] [address] [place] [address] Provider, Generic Social History Tobacco Use Types Packs/Day Years Used Date Smoking Tobacco: Former Cigarettes 1 10 0 07/14/1989 - 07/14/1999 Smokeless Tobacco: Never Alcohol Use Standard Drinks/Week Comments Yes 14 (1 standard drink = 0.6 oz pure alcohol) 2 vy, 2 shots liquor nightly, will stop pre op . Last drink 6 days ago. [facility] Utilities Answer Date Recorded In the past 12 months has [employer], [employer], oil, or water [employer] threatened to shut off services in your [...] any time in the past 12 m [facility], were you homeless or living in a half-way (including now)? No 01/10/2025 Sex and Gender [...] Procedure visit [facility] [address] [address] 04/18/2025 3:00 PM EST Procedure visit [facility] [address] [address] 05/17/2025 9:45 AM EST Office Visit [facility] [address] [place] [phone] Esthela Kaye, KNITTER MACHINE [address] [address] documented as of this encounter Visit Diagnoses Not on filedocumented in this encounter Care Teams Rn Lpn Cna Relationship Specialty Start Date End Date Brain Cyr DO PCP - General 07/14/18 Norma Rogel, LONI [place] Registered Nurse 07/14/18 documented as of this encounter
--- OUTSIDE RECORDS SUMMARY | 2025-03-27 10:17 | XMS_ITS | Encounter Summary ---
Author Organization [facility] Address [address] [place] [address] Care Team Providers Care Snuff Grinder And Screener Name Role Phone Brain Cyr DO Primary Care Provider [phone] Norma Rogel RN Unavailable Unavailable Encounter Details Date Type Department Care Team (Late st Contact Info) Description 02/28/[address] [facility] at Home [address] [address] Provider, Generic Social History Tobacco Use Types Packs/Day Years Used Date Smoking Tobacco: Former Cigarettes 1 10 0 07/14/1989 - 07/14/1999 Smokeless Tobacco: Never Alcohol Use Standard Drinks/Week Comments Yes 14 (1 standard drink = 0.6 oz pure alcohol) 2 vy, 2 shots liquor nightly, will stop pre op . Last drink 6 days ago. [facility] Utilities Answer Date Recorded In the past 12 months has [employer], [employer], oil, or water [employer] threatened to shut off services in your [...] any time in the past 12 m [facility], were you homeless or living in a fdc (including now)? No 01/10/2025 Sex and Gender [...] Procedure visit [facility] [address] [address] 04/18/2025 3:00 PM EST Procedure visit [facility] [address] [address] 05/17/2025 9:45 AM EST Office Visit [facility] [address] [place] [phone] Esthela Kaye, SPECIAL MACHINE OPERATOR [address] [address] documented as of this encounter Visit Diagnoses Not on filedocumented in this encounter Care Teams Snuff Grinder And Screener Relationship Specialty Start Date End Date Brain Cyr DO PCP - General 07/14/18 Norma Rogel, LONI [place] Registered Nurse 07/14/18 documented as of this encounter
--- OUTSIDE RECORDS SUMMARY | 2025-03-27 10:17 | XMS_ITS | Clinical Summary ---
Author Organization [facility] Address [address] [place] [address] Phone Care Team Providers Care Music Autographer Name Role Phone Jenn Hu MD Primary Care Provider Allergies No known active allergies Medications hydroCHLOROthiaz herlinda (MICROZIDE) 12.5 mg capsule Take 1 capsule (12.5 mg total) by mouth 1 (one) time each day. Active apixaban (ELIQUIS) 5 mg tabletIndication s:Deep vein thrombosis (DVT) of other vein of lower extremity, unspecified chronicity, unspecified laterality ([facility] V24, CMS/[facility] V28) Take 2 tablets (10 mg total) by mouth 2 (two) times a day for 6 days, THEN 1 tablet (5 mg total) 2 (two) times a day. 84 each 5 Active tamsulosin (FLOMAX) 0.4 mg 24 hr capsule Take 1 capsule (0.4 mg total) by mouth at bedtime. Capsules should be taken 30 minutes following the same meal each day. 30 each 5 03/10/20 25 Active Problems Problem Noted Date Diagnosed Date Lower extremity edema 02/05/2025 Urinary retention 02/04/2025 Encounters Date Type Department Care Team Description 02/17/[address] [facility] Lab [address] [facility] [place] [address] Jenn Hu MD Vitamin D deficiency, unspecified; Cervicalgia; Weakness; Essential (primary) hypertension 02/12/[address] [facility] Lab [address] [place] [phone] Jenn Hu MD Vitamin D deficiency, unspecified; Cervicalgia; Weakness; Essential (primary) hypertension 02/10/[address] [facility] Lab [address] [place] [phone] Jenn Hu MD Urinary tract infection, site not specified 02/08/[address]25 [address] [facility] Hematology Oncology [address] [place] [phone] Yon Delacruz MD 02/05/[address] [facility] Lab [address] [place] [phone] Jenn Hu MD Chronic kidney disease, unspecified 02/04/2025 3:15 PM EDT - 02/09/2025 1:23 PM EDT Hospital Encounter [facility] Urology Unit [address] [place] [phone] Frances Edward MD Wyman, Tim, MD Ishtiaq, Rizwan, MD Alam, Aroosa, MD Nasser, Nada S, MD Kela, Kashyap Devendrabhai, MD Lower extremity edema (Primary Dx); Positive D dimer; Urinary retention; Deep vein thrombosis (DVT) of other vein of lower extremity, unspecified chronicity, unspecified laterality ([facility] V24, [facility] V28) Discharge Disposition: [facility] 02/04/[address] [facility] Lab [address] [place] [phone] Jenn Hu MD Chronic kidney disease, unspecified 02/03/[address] [facility] Lab [address] [place] [phone] Jenn Hu MD Vitamin D deficiency, unspecified; Cervicalgia; Weakness; Essential (primary) hypertension 02/01/[address] [facility] Lab [address] [facility] [place] [address] Jenn Hu MD Essential (primary) hypertension 01/28/2025 4:40 AM EDT - 01/31/2025 4:18 PM EDT Emergency [facility] Emergency [address] [place] [phone] Augustin Henriquez MD Muhoozi, Bannet, MD Mersier, Jasmine, DO Damri, MD Michelle Hernandes John, MD Notash, MD Jayden Hospital admission [...] Health Maintenance Due Date Last Done Comments Colorectal Cancer Screening: Colonoscopy 1961 DTaP,Tdap,and Td Vaccines (1 - Tdap) 1980 Zoster Vaccines (1 of 2) 12/15/2011 Pneumococcal Vaccine: 50+ Years (2 of 2 - PPSV23, PCV20, or PCV21) 06/12/2016 04/17/2016 Depression Screening 06/01/2024 Cholesterol Screening (Lipid Panel) 01/27/2025 HIV Screening 01/27/2025 Hepatitis C Screening 01/27/2025 Social Influencers of Health Screening 01/27/2025 COVID-19 Vaccine ( - season) 2025 Influenza Vaccine (#1) 2025 9, 04/01/2019, 07/14/2017, Additional history exists Hypertension/CHF/CAD Annual BMP Blood Test 02/13/2026 02/13/2025, 02/10/2025, 02/08/2025, Additional history exists RSV Immunization Adult Patients [...] Associated Diagnosis Comments BASIC METABOLIC PANEL Routine 02/13/2025 5:40 AM EDT Vitamin D deficiency, unspecified Cervicalgia Weakness Essential (primary) hypertension COMPLETE BLOOD COUNT Routine 02/13/2025 5:40 AM EDT Vitamin D deficiency, unspecified Cervicalgia Weakness Essential (primary) hypertension CBC WITH AUTO DIFFERENTIAL Routine 02/10/2025 6:59 [...] EDT from Last 3 Months Results * (ABNORMAL) Complete blood count (02/13/2025 5:40 AM EDT) Only the most recent of4 resultswithin the time period is included. [facility] WBC 8.8 4.8 - 10.8 K/mcL LAB HEMETOLOGY METHOD 02/13/2025 11:08 AM EDT [facility] RBC 3.30(L) 4.50 - 5.50 M/mcL LAB HEMETOLOGY METHOD 02/13/2025 11:08 AM EDT [facility] Hemoglobin 11.2(L) 13.5 - 17.5 g/dL LAB HEMETOLOGY METHOD 02/13/2025 11:08 AM EDT [facility] Hematocrit 32.1(L) 42.0 - 54.0 % LAB HEMETOLOGY METHOD 02/13/2025 11:08 AM EDT [facility] MCV 96.1 79.0 - 98.0 FL LAB HEMETOLOGY METHOD 02/13/2025 11:08 AM EDT [facility] MCH 33.5(H) 27.0 - 32.0 pcg LAB HEMETOLOGY METHOD 02/13/2025 11:08 AM EDT [facility] MCHC 34.9 32.0 - 37.0 g/dL LAB HEMETOLOGY METHOD 02/13/2025 11:08 AM EDT [facility] RDW 11.6 11.0 - 15.0 % LAB HEMETOLOGY METHOD 02/13/2025 11:08 AM EDT [facility] Platelets 337 130 - 400 K/mcL LAB HEMETOLOGY METHOD 02/13/2025 11:08 AM EDT [facility] MPV 9.8 7.0 - 11.0 FL LAB HEMETOLOGY METHOD 02/13/2025 11:08 AM EDT [facility] NRBC 0.0 <1.0 % LAB HEMETOLOGY METHOD 02/13/2025 11:08 AM EDT [facility] NRBC Absolute 0.00 <0.10 K/mcL LAB HEMETOLOGY METHOD 02/13[facility]25 [facility] Blood Venous blood specimen / Unknown Venipuncture / Unknown 02/13/2025 5:40 AM EDT 02/13/2025 10:41 AM EDT us Jenn Hu MD LAB BLOOD ORDERABLES Final Resul t [facility] [address] [place] [address], * (ABNORMAL) Basic metabolic panel (02/13/2025 5:40 AM EDT) Only the most recent of6 resultswithin the time period is included. [facility] Sodium 142 133 - 145 mmol/L LAB CHEMISTRY METHOD 02/13/2025 2:24 PM [facility] Potassium 3.2(L) 3.5 - 5.5 mmol/L LAB CHEMISTRY METHOD 02/13/2025 2:24 PM [facility] Chloride 109 96 - 110 mmol/L LAB CHEMISTRY METHOD 02/13/2025 2:24 PM [facility] CO2 24 21 - 32 mmol/L LAB CHEMISTRY METHOD 02/13/2025 2:24 PM [facility] Anion Gap 9 3 - 11 LAB CHEMISTRY METHOD 02/13/2025 2:24 PM [facility] Glucose 68(L) 70 - 100 mg/dL LAB CHEMISTRY METHOD 02/13/2025 2:24 PM [facility] BUN 5 5 - 25 mg/dL LAB CHEMISTRY METHOD 02/13/2025 2:24 PM [facility] Creatinine 0.54(L) 0.70 - 1.30 mg/dL LAB CHEMISTRY METHOD 02/13/2025 2:24 PM [facility] eGFR 112 >=60 mL/min/1. 73m2 LAB CHEMISTRY METHOD 02/13/2025 2:24 PM [facility] Comment:Calculation based on the Chronic Kidney Disease Epidemiology Collaboration (CKD-EPI) equation refit without adjustment for race. BUN/Creatinine Ratio 9.3 LAB CHEMISTRY METHOD 02/13/2025 2:24 PM [facility] Calcium 8.9 8.5 - 10.5 mg/dL LAB CHEMISTRY METHOD 02/13/2025 2:24 PM [facility] Blood Venous blood specimen / Unknown Venipuncture / Unknown 02/13/2025 5:40 AM EDT 02/13/2025 10:40 AM EDT Jenn Hu MD LAB BLOOD ORDERABLES Final Resul t [facility] [address] [place] [address], [place] [phone] * Vitamin B12 and folate (02/10/2025 6:59 AM EDT) [facility] Vitamin B-12 311 250 - 900 pcg/mL LAB CHEMISTRY METHOD 02/10/2025 11:40 AM EDT [facility] Folate 2.9 2.8 - 17.0 ng/ml LAB CHEMISTRY METHOD 02/10/2025 11:40 AM EDT [facility] Blood Venous blood specimen / Unknown Venipuncture / Unknown 02/10/2025 6:59 AM EDT 02/10/2025 9:24 AM EDT Jenn Hu MD LAB BLOOD ORDERABLES Final Resul t Performing Organization Address [facility]/ZIP Co de Phone Number [facility] [address] [place] [address], [place] [phone] * (ABNORMAL) CBC auto differential (02/10/2025 6:59 AM EDT) Only the most recent of5 resultswithin the time period is included. [facility] WBC 11.7(H) 4.8 - 10.8 K/mcL LAB HEMETOLOGY METHOD 02/10/2025 10:44 AM EDT [facility] RBC 3.40(L) 4.50 - 5.50 M/mcL LAB HEMETOLOGY METHOD 02/10/2025 10:44 AM EDT [facility] Hemoglobin 11.3(L) 13.5 - 17.5 g/dL LAB HEMETOLOGY METHOD 02/10/2025 10:44 AM EDT [facility] Hematocrit 33.3(L) 42.0 - 54.0 % LAB HEMETOLOGY METHOD 02/10/2025 10:44 AM EDT [facility] MCV 97.4 79.0 - 98.0 FL LAB HEMETOLOGY METHOD 02/10/2025 10:44 AM [facility] MCH 33.0(H) 27.0 - 32.0 pcg LAB HEMETOLOGY METHOD 02/10/2025 10:44 AM [facility] MCHC 33.9 32.0 - 37.0 g/dL LAB HEMETOLOGY METHOD 02/10/2025 10:44 AM [facility] RDW 11.6 11.0 - 15.0 % LAB HEMETOLOGY METHOD 02/10/2025 10:44 AM [facility] Platelets 312 130 - 400 K/mcL LAB HEMETOLOGY METHOD 02/10/2025 10:44 AM [facility] MPV 10.1 7.0 - 11.0 FL LAB HEMETOLOGY METHOD 02/10/2025 10:44 AM [facility] NRBC 0.0 <1.0 % LAB HEMETOLOGY METHOD 02/10/2025 10:44 AM [facility] NRBC Absolute 0.00 <0.10 K/mcL LAB HEMETOLOGY METHOD 02/10/2025 10:44 AM [facility] Neutrophils Relative 72.4 % LAB HEMETOLOGY METHOD 02/10/2025 10:44 AM [facility] Lymphocytes Relative 15.3 % LAB HEMETOLOGY METHOD 02/10/2025 10:44 AM [facility] Monocytes Relative 7.8 % LAB HEMETOLOGY METHOD 02/10/2025 10:44 AM [facility] Eosinophils Relative 2.7 % LAB HEMETOLOGY METHOD 02/10/2025 10:44 AM [facility] Basophils Relative 0.3 % LAB HEMETOLOGY METHOD 02/10/2025 10:44 AM [facility] Immature Granulocytes Relative 1.5 % LAB HEMETOLOGY METHOD 02/10/2025 10:44 AM EDT [facility] Neutrophils Absolute 8.46(H) 1.50 - 7.00 K/[facility] LAB HEMETOLOGY METHOD 02/10/2025 10:44 AM EDT [facility] Lymphocytes Absolute 1.79 1.00 - 5.00 K/mcL LAB HEMETOLOGY METHOD 02/10/2025 10:44 AM EDT [facility] Monocytes Absolute 0.91 0.20 - 1.00 K/[facility] LAB HEMETOLOGY METHOD 02/10/2025 10:44 AM EDT [facility] Eosinophils Absolute 0.32 0.00 - 0.50 K/[facility] LAB HEMETOLOGY METHOD 02/10/2025 10:44 AM EDT [facility] Basophils Absolute 0.04 0.00 - 0.20 K/mcL LAB HEMETOLOGY METHOD 02/10/2025 10:44 AM EDT [facility] Immature Granulocytes Absolute 0.18(H) 0.00 - 0.03 K/mcL LAB HEMETOLOGY METHOD 02/10/2025 10:44 AM EDT [facility] Blood Venous blood specimen / Unknown Venipuncture / Unknown 02/10/2025 6:59 AM EDT 02/10/2025 9:24 AM EDT us Jenn Hu MD LAB BLOOD ORDERABLES Final Resul t [facility] [address] [place] [address], * Thyroid stimulating hormone (02/10/2025 6:59 AM EDT) TSH 0.71 0.40 - 4.00 mcIU/mL LAB CHEMISTRY METHOD 02/10/2025 12:07 PM EDT [facility] Blood Venous blood specimen / Unknown Venipuncture / Unknown 02/10/2025 6:59 AM EDT 02/10/2025 9:24 AM EDT Jenn Hu MD LAB BLOOD ORDERABLES Final Resul t Performing Organization Address [facility] de Phone Number [facility] [address] [place] [address], * ECG-Outside (02/10/2025) Provider Onbase ECG ORDERABLES Final Result * (ABNORMAL) C-reactive protein (02/08/2025 5:31 AM EDT) Only the most recent of2 resultswithin the time period is included. C-Reactive Protein 11.10(H) <=0.50 mg/dL LAB CHEMISTRY METHOD 02/08/2025 7:30 AM EDT [facility] Blood Venous blood specimen / Unknown Venipuncture / Unknown 02/08/2025 5:31 AM EDT 02/08/2025 6:21 AM EDT Rosario Lees MD LAB BLOOD ORDERABLES Final Resu lt Performing Organization Address [facility] de Phone Number [facility] [address] [place] [address], * Phosphorus (02/08/2025 5:31 AM EDT) Only the most recent of2 resultswithin the time period is included. Phosphorus 4.5 2.5 - 4.5 mg/dL LAB CHEMISTRY METHOD 02/08/2025 8:00 AM EDT [facility] Blood Venous blood specimen / Unknown Venipuncture / Unknown 02/08/2025 5:31 AM EDT 02/08/2025 6:21 AM EDT us Alon Gonsalez MD LAB BLOOD ORDERABLE S Final Result Performing Organization Address City/[facility]/ZIP Co de Phone Number [facility] [address] [place] [address], [place] [phone] * (ABNORMAL) Magnesium (02/08/2025 5:31 AM EDT) Only the most recent of4 resultswithin the time period is included. Pathologist [facility] Magnesium 1.8(L) 1.9 - 2.6 mg/dL LAB CHEMISTRY METHOD 02/08/2025 8:00 AM EDT [facility] Blood Venous blood specimen / Unknown Venipuncture / Unknown 02/08/2025 5:31 AM EDT 02/08/2025 6:21 AM EDT us Alon Gonsalez MD LAB BLOOD ORDERABLE S Final Result Performing Organization Address [facility] Co de Phone Number [facility] [address] [place] [address], [place] [phone] * (ABNORMAL) D-Dimer (02/08/2025 5:30 AM EDT) Only the most recent of4 resultswithin the time period is included. Pathologist [facility] D-Dimer, Quant (D-DU) 2,207(H) <=230 ng/mL DDU LAB COAGULATION METHOD 02/08/2025 7:12 AM EDT [facility] Blood Venous blood specimen / Unknown Venipuncture / Unknown 02/08/2025 5:30 AM EDT 02/08/2025 6:21 AM EDT Narrative [facility] - 02/08/2025 7:12 AM EDT D-Dimer <230 ng/mL (D-Dimer units) is the threshold for exclusion of DVT/PE. D-Dimer may be elevated in: Critically ill, severely infected, trauma patients, DIC, acute CVA, acute MN, unstable angina, AF, old age, , and smoking. D-Dimer may be decreased with: Initiation of heparin therapy and oral anticoagulants. us Rosario Lees MD LAB BLOOD ORDERABLES Final Resu lt Performing Organization Address [facility] Co de Phone Number [facility] [address] [place] [address], [place] [phone] * (ABNORMAL) Activated Partial Thromboplastin Time - STAT (02/07/2025 4:40 PM EDT) Only the most recent of2 resultswithin the time period is included. aPTT 139.1(HH) 24.1 - 39.3 sec LAB COAGULATION METHOD 02/07/2025 5:24 PM EDT [facility] Blood Venous blood specimen / Unknown Venipuncture / Unknown 02/07/2025 4:40 PM EDT 02/07/2025 4:51 PM EDT us Rosario Lees MD LAB BLOOD ORDERABLES Final Resu lt Performing Organization Address [facility]/ZIP Co de Phone Number [facility] [address] [place] [address], [place] [phone] * Anti-Xa - Every 6 Hours (02/07/2025 12:03 PM EDT) Only the most recent of13 resultswithin the time period is included. Heparin Anti-Xa 0.68 0.30 - 0.70 I Unit/mL LAB COAGULATION METHOD 02/07/2025 12:25 PM EDT [facility] Blood Venous blood specimen / Unknown Venipuncture / Unknown 02/07/2025 12:03 PM EDT 02/07/2025 12:11 PM EDT Narrative [facility] - 02/07/2025 12:25 PM EDT Therapeutic range listed is for Unfractionated Heparin. LMW Heparin therapeutic range: 0.50-1.20 IU/mL us Naeem Daniels MD LAB BLOOD ORDERABLES Final Res ult [facility] [address] [facility] [place] [address], [place] [phone] * (ABNORMAL) TRANSTHORACIC ECHOCARDIOGRAM (TTE) COMPLETE W/ CONTRAST (02/07/2025 10:37 AM EDT) Left [facility] [place] 6.0 cm CV PACS Left [facility] [place] 6.1 cm CV PACS LA Area Sys [...] - 102 g/m2 CV PACS MV Deceleration [place] 5.6 m/s2 CV PACS MV PHT 41 [...] S' 18 cm/s CV PACS RA [place] 5.3 cm CV PACS RA [place] Index 2.6 2.1 - 2.7 cm/m2 CV [...] of2 resultswithin the time period is included. [facility] High Sensitivity Troponin I 22 <=79 ng/L LAB CHEMISTRY METHOD 02/07/2025 7:49 AM EDT [facility] Blood Venous blood specimen / Unknown Venipuncture / Unknown 02/07/2025 6:31 AM EDT 02/07/2025 7:14 AM EDT Narrative [facility] - 02/07/2025 7:49 AM EDT High levels of biotin in samples may falsely decrease hsTroponin values. Use caution when interpreting hsTroponin results in patients taking biotin who exhibit renal impairment (eGFR <60) or in patients taking more than 20 mg/day of biotin. us Rosario Lees MD LAB BLOOD ORDERABLES Final Resu lt Performing Organization Address City/[facility] Co de Phone Number [facility] [address] [place] [address], [place] [phone] * Thyroid stimulating hormone with reflex to free t4 and free t3 (02/07/2025 6:31 AM EDT) [facility] TSH 1.11 0.40 - 4.00 mcIU/mL LAB CHEMISTRY METHOD 02/07/2025 9:41 AM EDT [facility] Blood Venous blood specimen / Unknown Venipuncture / Unknown 02/07/2025 6:31 AM EDT 02/07/2025 7:14 AM EDT us Rosario Lees MD LAB BLOOD ORDERABLES Final Resu lt Performing Organization Address City/State/[facility] de Phone Number [facility] [address] [place] [address], * Prostate specific antigen diagnostic (02/07/2025 6:31 AM EDT) PSA 3.83 0.00 - 4.00 ng/mL LAB CHEMISTRY METHOD 02/07/2025 9:26 AM EDT [facility] Blood Venous blood specimen / Unknown Venipuncture / Unknown 02/07/2025 6:31 AM EDT 02/07/2025 7:14 AM EDT Narrative [facility] - 02/07/2025 9:26 AM EDT The Siemens Advia Sanergyaur Chemiluminescent Immunoassay is used. Results obtained with different assay methods or kits cannot be used interchangeably. Results cannot be interpreted as absolute evidence of the presence or absence of malignant disease. us Rosario Lees MD LAB BLOOD ORDERABLES Final Resu lt Performing Organization Address [facility] de Phone Number [facility] [address] [place] [address], * (ABNORMAL) Prothrombin time with INR (02/07/2025 6:31 AM EDT) Only the most recent of2 resultswithin the time period is included. Protime 16.0(H) 10.6 - 13.9 sec LAB COAGULATION METHOD 02/07/2025 7:49 AM EDT [facility] INR 1.3 LAB COAGULATION METHOD 02/07/2025 7:49 AM EDT [facility] Blood Venous blood specimen / Unknown Venipuncture / Unknown 02/07/2025 6:31 AM EDT 02/07/2025 7:15 AM EDT us Rosario Lees MD LAB BLOOD ORDERABLES Final Resu Performing Organization Address [facility]/State/ZIP Co de Phone Number [facility] [address] [place] [address], * Hemoglobin A1c (02/07/2025 6:31 AM EDT) [facility] Hemoglobin A1C 4.5 <6.5 % LAB CHEMISTRY METHOD 02/07/2025 9:23 AM EDT [facility] Mean Bld Glu Estim. 82 mg/dL LAB CHEMISTRY METHOD 02/07/2025 9:23 AM EDT [facility] Blood Venous blood specimen / Unknown Venipuncture / Unknown 02/07/2025 6:31 AM EDT 02/07/2025 7:15 AM EDT us Rosario Lees MD LAB BLOOD ORDERABLES Final Resu lt Performing Organization Address City/[facility]/ZIP Co de Phone Number [facility] [address] [place] [address], * Vitamin B12 (02/07/2025 6:31 AM EDT) [facility] Vitamin B-12 345 250 - 900 pcg/mL LAB CHEMISTRY METHOD 02/07/2025 8:34 AM EDT [facility] Blood Venous blood specimen / Unknown Venipuncture / Unknown 02/07/2025 6:31 AM EDT 02/07/2025 7:14 AM EDT us Rosario Lees MD LAB BLOOD ORDERABLES Final Resu lt [facility] [address] [place] [address], [place] [phone] * (ABNORMAL) Comprehensive metabolic panel (02/07/2025 6:31 AM EDT) Only the most recent of3 resultswithin the time period is included. [facility] Sodium 138 133 - 145 mmol/L LAB CHEMISTRY METHOD 02/07/2025 8:11 AM [facility] Potassium 3.6 3.5 - 5.5 mmol/L LAB CHEMISTRY METHOD 02/07/2025 8:11 AM [facility] Chloride 105 96 - 110 mmol/L LAB CHEMISTRY METHOD 02/07/2025 8:11 AM [facility] CO2 27 21 - 32 mmol/L LAB CHEMISTRY METHOD 02/07/2025 8:11 AM [facility] Anion Gap 6 3 - 11 LAB CHEMISTRY METHOD 02/07/2025 8:11 AM [facility] Glucose 99 70 - 100 mg/dL LAB CHEMISTRY METHOD 02/07/2025 8:11 AM [facility] BUN 8 5 - 25 mg/dL LAB CHEMISTRY METHOD 02/07/2025 8:11 AM [facility] Creatinine 0.55(L) 0.70 - 1.30 mg/dL LAB CHEMISTRY METHOD 02/07/2025 8:11 AM [facility] eGFR 111 >=60 mL/min/1. 73m2 LAB CHEMISTRY METHOD 02/07/2025 8:11 AM [facility] Comment:Calculation based on the Chronic Kidney Disease Epidemiology Collaboration (CKD-EPI) equation refit without adjustment for race. BUN/Creatinine Ratio 14.5 LAB CHEMISTRY METHOD 02/07/2025 8:11 AM [facility] Calcium 8.7 8.5 - 10.5 mg/dL LAB CHEMISTRY METHOD 02/07/2025 8:11 AM [facility] AST (SGOT) 16 10 - 42 unit/L LAB CHEMISTRY METHOD 02/07/2025 8:11 AM [facility] ALT (SGPT) 12 10 - 60 unit/L LAB CHEMISTRY METHOD 02/07/2025 8:11 AM [facility] Alkaline Phosphatase 84 42 - 121 unit/L LAB CHEMISTRY METHOD 02/07/2025 8:11 AM EDT [facility] Total Protein 6.2 6.0 - 8.0 g/dL LAB CHEMISTRY METHOD 02/07/2025 8:11 AM EDT [facility] Albumin 2.8(L) 3.2 - 5.0 g/dL LAB CHEMISTRY METHOD 02/07/2025 8:11 AM EDT [facility] Total Bilirubin 0.8 0.0 - 1.4 mg/dL LAB CHEMISTRY METHOD 02/07/2025 8:11 AM EDT [facility] Blood Venous blood specimen / Unknown Venipuncture / Unknown 02/07/2025 6:31 AM EDT 02/07/2025 7:14 AM EDT Rosario Lees MD LAB BLOOD ORDERABLES Final Resu lt [facility] [address] [place] [address], * Respiratory virus panel molecular study (02/07/2025 12:37 AM EDT) Pathologist [facility] Adenovirus Detection by PCR Not Detected Not Detected LAB MICROBIOLOGY METHOD 02/07/2025 1:47 AM EDT [facility] Influenza A PCR Not Detected Not Detected LAB MICROBIOLOGY METHOD 02/07/2025 1:47 AM EDT [facility] Influenza B PCR Not Detected Not Detected LAB MICROBIOLOGY METHOD 02/07/2025 1:47 AM EDT [facility] Coronavirus 229E Not Detected Not Detected LAB MICROBIOLOGY METHOD 02/07/2025 1:47 AM EDT [facility] Coronavirus HKU1 Not Detected Not Detected LAB MICROBIOLOGY METHOD 02/07/2025 1:47 AM EDT [facility] Coronavirus OC43 Not Detected Not Detected LAB MICROBIOLOGY METHOD 02/07/2025 1:47 AM EDT [facility] Coronavirus NL63 Not Detected Not Detected LAB MICROBIOLOGY METHOD 02/07/2025 1:47 AM EDT [facility] Parainfluenza Virus 1 Not Detected Not Detected LAB MICROBIOLOGY METHOD 02/07/2025 1:47 AM EDT [facility] Parainfluenza Virus 2 Not Detected Not Detected LAB MICROBIOLOGY METHOD 02/07/2025 1:47 AM EDT [facility] Parainfluenza Virus 3 Not Detected Not Detected LAB MICROBIOLOGY METHOD 02/07/2025 1:47 AM EDT [facility] Parainfluenza Virus 4 Not Detected Not Detected LAB MICROBIOLOGY METHOD 02/07/2025 1:47 AM EDT [facility] RSV PCR Not Detected Not Detected LAB MICROBIOLOGY METHOD 02/07/2025 1:47 AM EDT [facility] Human Metapneumovirus A and B Not Detected Not Detected LAB MICROBIOLOGY METHOD 02/07/2025 1:47 AM EDT [facility] Rhinovirus/Entero virus Not Detected Not Detected LAB MICROBIOLOGY METHOD 02/07/2025 1:47 AM EDT [facility] Bordetella pertussis Not Detected Not Detected LAB MICROBIOLOGY METHOD 02/07/2025 1:47 AM EDT [facility] Bordetella parapertussis Not Detected Not Detected LAB MICROBIOLOGY METHOD 02/07/2025 1:47 AM EDT [facility] Mycoplasma pneumo by PCR Not Detected Not Detected LAB MICROBIOLOGY METHOD 02/07/2025 1:47 AM EDT [facility] Chlamydia pneumoniae Not Detected Not Detected LAB MICROBIOLOGY METHOD 02/07/2025 1:47 AM EDT [facility] SARS COV-2 Not Detected Not Detected LAB MICROBIOLOGY METHOD 02/07/2025 1:47 AM EDT [facility] Swab Nasopharyngeal structure / Unknown Non-blood Collection / Unknown 02/07/2025 12:37 AM EDT 02/07/2025 12:47 AM EDT Narrative [facility] ([facility]) [facility] - 02/07/2025 1:47 AM EDT Testing was performed using the LiveSafe Respiratory Pathogen PCR Assay. All results must [...] us Rosario Lees MD LAB MICROBIOLOGY - GENERAL ORDE RICHARD Final Result [facility] ([facility] [address] [place] [address], * Vascular US duplex lower extremity venous [...] cyst. Procedure Note Cameron Cook MD - 09/08/2025 INDICATION: pain in extremities Venous duplex ultrasound [...] Signed Date: 02/06/2025 11:50 ET Workstation ID: [id number] Transcribed By: Self Edit Transcribed Date: 02/06/2025 11:39 ET Narrative 02/06/2025 11:50 AM EDT INDICATION: Shortness of breath FINDINGS: Perfusion only scan was obtained. 5.2 mCi of technetium 99 M MAA intravenously for the perfusion portion with imaging obtained in different positions including anterior, posterior, AZERI, HURLEY, LPO and HURLEY views. Relevant studies: [...] imaging obtained in different positions including anterior,posterior, AZERI, HURLEY, LPO and HURLEY views. Relevant studies: [...] Signed Date: 02/06/2025 11:50 ET Workstation ID: [id number] Transcribed By: Self Edit Transcribed Date: 02/06/2025 11:39 ET Naeem Daniels MD IMG NM PROCEDURES Final Result * SST tube (02/06/2025 6:12 AM EDT) Extra Tube Hold for add-ons. 02/06/2025 8:01 AM EDT [facility] Comment:Auto resulted. Blood Venous blood specimen / Unknown Venipuncture / Unknown 02/06/2025 6:12 AM EDT 02/06/2025 6:20 AM EDT us Rosario Lees MD LAB BLOOD ORDERABLES Final Resu lt [facility] [address] [place] [address], [place] [phone] * Lavender tube (02/06/2025 6:12 AM EDT) Only the most recent of2 resultswithin the time period is included. Extra Tube Hold for add-ons. 02/06/2025 8:01 AM EDT [facility] Comment:Auto resulted. Blood Venous blood specimen / Unknown Venipuncture / Unknown 02/06/2025 6:12 AM EDT 02/06/2025 6:20 AM EDT us Rosario Lees MD LAB BLOOD ORDERABLES Final Resu lt Performing Organization Address [facility]/ZIP Co de Phone Number [facility] [address] [place] [address], [place] [phone] * (ABNORMAL) Creatine kinase (02/06/2025 6:12 AM EDT) Total CK 14(L) 22 - 269 unit/L LAB CHEMISTRY METHOD 02/06/2025 10:33 AM EDT [facility] Comment:Results verified by repeat testing Blood Venous blood specimen / Unknown Venipuncture / Unknown 02/06/2025 6:12 AM EDT 02/06/2025 6:20 AM EDT us Rosario Lees MD LAB BLOOD ORDERABLES Final Resu lt Performing Organization Address [facility] de Phone Number [facility] [address] [place] [address], [place] [phone] * Potassium (02/05/2025 12:09 PM EDT) Pathologist [facility] Potassium 3.8 3.5 - 5.5 mmol/L LAB CHEMISTRY METHOD 02/05/2025 12:38 PM EDT [facility] Blood Venous blood specimen / Unknown Venipuncture / Unknown 02/05/2025 12:09 PM EDT 02/05/2025 12:16 PM EDT us Richie Cerna MD LAB BLOOD ORDERABLES Final Resul t Performing Organization Address City/[facility]/ZIP Co de Phone Number [facility] [address] [place] [address], [place] [phone] * CT Chest/Abdomen/Pelvis wo Contrast (02/04/2025 6:00 PM EDT) Anatomical Region Laterality Modality Body Computed Tomogra phy 02/04/2025 7:14 PM EDT Impressions 02/04/2025 7:14 PM EDT Impression: 1. Mild patchy bilateral upper lobe ground-glass opacities, concerning for multifocal pneumonia or nonspecific pneumonitis, as described above. 2. No acute abnormality within the abdomen or pelvis. This document has been electronically signed by: Kieth De Souza MD on 02/04/2025 19:14:22 Narrative [...] adenopathy. Abdominal aorta is normal caliber with [id number] calcific athero sclerosis. Bowel loops reveal no [...] adenopathy. Abdominal aorta is normal caliber with [id number] calcific athero sclerosis. Bowel loops reveal no [...] MD on 02/04/2025 19:14:22 Frances Edward MD IM CT PROCEDURES Final Resu lt * (ABNORMAL) B-type natriuretic peptide (02/04/2025 4:32 PM EDT) Pathologist [facility] BNP 180(H) <=100 pcg/mL LAB CHEMISTRY METHOD 02/04/2025 5:32 PM EDT [facility] Blood Venous blood specimen / Unknown Venipuncture / Unknown 02/04/2025 4:32 PM EDT 02/04/2025 4:54 PM EDT Frances Edward MD LAB BLOOD ORDERABLES Final R esult [facility] [address] [place] [address], * (ABNORMAL) Urinalysis with reflex microscopic (02/04/2025 4:13 PM EDT) [facility] Specific [place] Urine 1.010 1.003 - 1.030 LAB URINALYSIS - AUTOMATED METHOD 02/04/2025 5:08 PM [facility] pH, Urine 5.5 5.0 - 8.0 pH LAB URINALYSIS - AUTOMATED METHOD 02/04/2025 5:08 PM [facility] Leukocytes, Urine Trace(A) Negative LAB URINALYSIS - AUTOMATED METHOD 02/04/2025 5:08 PM [facility] Nitrite, Urine Negative Negative LAB URINALYSIS - AUTOMATED METHOD 02/04/2025 5:08 PM [facility] Protein, Urine Negative <=Trace mg/dL LAB URINALYSIS - AUTOMATED METHOD 02/04/2025 5:08 PM [facility] Glucose, Urine Negative Negative mg/dL LAB URINALYSIS - AUTOMATED METHOD 02/04/2025 5:08 PM [facility] Ketones, Urine Negative Negative mg/dL LAB URINALYSIS - AUTOMATED METHOD 02/04/2025 5:08 PM [facility] Urobilinogen, Urine 0.2 0.2 - 1.0 mg/dL LAB URINALYSIS - AUTOMATED METHOD 02/04/2025 5:08 PM [facility] Bilirubin, Urine Negative Negative LAB URINALYSIS - AUTOMATED METHOD 02/04/2025 5:08 PM [facility] Blood, Urine Negative Negative LAB URINALYSIS - AUTOMATED METHOD 02/04/2025 5:08 PM [facility] RBC, Urine 1.2 0 - 4 /HPF LAB URINALYSIS - AUTOMATED METHOD 02/04/2025 5:08 PM [facility] WBC, Urine 4.2(H) 0 - 4 /HPF LAB URINALYSIS - AUTOMATED METHOD 02/04/2025 5:08 PM [facility] Squamous Epithelial, Urine 12 0 - 60 /LPF LAB URINALYSIS - AUTOMATED METHOD 02/04/2025 5:08 PM [facility] Bacteria, Urine Negative Negative /HPF LAB URINALYSIS - AUTOMATED METHOD 02/04/2025 5:08 PM [facility] Hyaline Casts, Urine 0.0 0 - 3 /LPF LAB URINALYSIS - AUTOMATED METHOD 02/04/2025 5:08 PM [facility] Urine Urine specimen obtained by clean catch procedure / Unknown Non-blood Collection / Unknown 02/04/2025 4:13 PM EDT 02/04/2025 4:52 PM EDT us Frances Edward MD LAB URINE ORDERABLES Final R esult [facility] [address] [place] [address], * ECG 12 lead (02/04/2025 3:52 PM EDT) Ventricular Rate ECG 70 BPM GEMUSE Atrial Rate 70 BPM GEMUSE P-R Interval 172 ms GEMUSE QRS Duration 98 ms GEMUSE Q-T Interval 442 ms GEMUSE QTc 477 ms GEMUSE P Wave [place] 34 degrees GEMUSE R [place] -2 degrees GEMUSE T [place] -16 degrees GEMUSE ECG Interpretation Normal sinus rhythm Normal ECG No previous ECGs available Confirmed by LISSA SAUL ([id number]) on 02/05/2025 7:17:54 AM GEMUSE 02/04/2025 3:52 PM EDT 02/05/2025 7:17 AM EDT us Frances Edward MD ECG ORDERABLES Final Result GEMUSE * (ABNORMAL) Urinalysis with reflex microscopic and culture (01/28/2025 6:57 PM EDT) Specific [place] Urine 1.010 1.003 - 1.030 LAB URINALYSIS - AUTOMATED METHOD 01/28/2025 7:22 PM [facility] pH, Urine 7.0 5.0 - 8.0 pH LAB URINALYSIS - AUTOMATED METHOD 01/28/2025 7:22 PM [facility] Leukocytes, Urine Small(A) Negative LAB URINALYSIS - AUTOMATED METHOD 01/28/2025 7:22 PM [facility] Nitrite, Urine Negative Negative LAB URINALYSIS - AUTOMATED METHOD 01/28/2025 7:22 PM [facility] Protein, Urine Negative <=Trace mg/dL LAB URINALYSIS - AUTOMATED METHOD 01/28/2025 7:22 PM [facility] Glucose, Urine Negative Negative mg/dL LAB URINALYSIS - AUTOMATED METHOD 01/28/2025 7:22 PM [facility] Ketones, Urine Negative Negative mg/dL LAB URINALYSIS - AUTOMATED METHOD 01/28/2025 7:22 PM [facility] Urobilinogen, Urine 1.0 0.2 - 1.0 mg/dL LAB URINALYSIS - AUTOMATED METHOD 01/28/2025 7:22 PM EDT [facility] Bilirubin, Urine Negative Negative LAB URINALYSIS - AUTOMATED METHOD 01/28/2025 7:22 PM EDT [facility] Blood, Urine Negative Negative LAB URINALYSIS - AUTOMATED METHOD 01/28/2025 7:22 PM [facility] RBC, Urine 2.0 0 - 4 /HPF LAB URINALYSIS - AUTOMATED METHOD 01/28[facility]25 [facility] WBC, Urine 11.8(H) 0 - 4 /HPF LAB URINALYSIS - AUTOMATED METHOD 01/28/2025 7:22 PM [facility] Squamous Epithelial, Urine 14 0 - 60 /LPF LAB URINALYSIS - AUTOMATED METHOD 01/28/2025 7:22 PM [facility] Bacteria, Urine Few(A) Negative /HPF LAB URINALYSIS - AUTOMATED METHOD 01/28/2025 7:22 PM [facility] Hyaline Casts, Urine 0.0 0 - 3 /LPF LAB URINALYSIS - AUTOMATED METHOD 01/28/2025 7:22 PM [facility] Urine Urine specimen obtained by clean catch procedure / Unknown Non-blood Collection / Unknown 01/28/2025 6:57 PM EDT 01/28/2025 7:12 PM EDT us Chelo Salaazr DO LAB URINE ORDERABLES Final Re sult [facility] [address] [place] [address], * [place] urine culture tube (01/28/2025 6:57 PM EDT) Extra Tube Hold for add-ons. 01/28/2025 9:01 PM EDT [facility] Comment:Auto resulted. Urine Urine specimen obtained by clean catch procedure / Unknown Non-blood Collection / Unknown 01/28/2025 6:57 PM EDT 01/28/2025 7:12 PM EDT [facility] URINE ORDERABLES Final Re sult Performing Organization Address [facility]/ZIP Co de Phone Number [facility] [address] [place] [address], [place] [phone] * (ABNORMAL) Culture urine (01/28/2025 6:57 PM EDT) [facility] Culture, Urine >=100,000 CFU/mL Enterococcus faecalis(A) JOSH 01/30/2025 8:42 AM EDT [facility] Comment: This is an edited result. [...] Enterococcus faecalis Nitrofurantoin JOSH <=16 ug/ml: Susceptible [facility] LAB MICROBIOLOGY - GENERAL OR DERABLES Final Result [facility] [address] [place] [address], [place] [phone] from Last 3 Months Insurance ) Advance Directives Documents on File Type Date Recorded Patient Charging Operator Expl anation Advance Directives and Living [...] Lozano Spouse Health Care Agent Care Teams Music Autographer Relationship Specialty Start Date End Date Jenn Hu MD [address] [place] [address] [address] [place] [address] PCP - General Geriatric Medicine 02/01/25
--- OUTSIDE RECORDS SUMMARY | 2025-03-27 10:17 | XMS_ITS | Encounter Summary ---
Author Organization [facility] Address [address] [place] [address] Care Team Providers Care Solar Sales Rep Name Role Phone Brain Cyr DO Primary Care Provider [phone] Norma Rogel RN Unavailable Unavailable Encounter Details Date Type Department Care Team (Late st Contact Info) Description 03/06/2025 Scanned Document [facility] at Home [address] [facility] [address] [place] [address] Provider, Generic Social History Tobacco Use Types Packs/Day Years Used Date Smoking Tobacco: Former Cigarettes 1 10 0 07/14/1989 - 07/14/1999 Smokeless Tobacco: Never Alcohol Use Standard Drinks/Week Comments Yes 14 (1 standard drink = 0.6 oz pure alcohol) 2 vy, 2 shots liquor nightly, will stop pre op . Last drink 6 days ago. [facility] Utilities Answer Date Recorded In the past 12 months has [employer], [employer], oil, or water [employer] threatened to shut off services in your [...] any time in the past 12 m [facility], were you homeless or living in a chcf (including now)? No 01/10/2025 Sex and Gender [...] Procedure visit [facility] [address] [address] 04/18/2025 3:00 PM EST Procedure visit [facility] [address] [address] 05/17/2025 9:45 AM EST Office Visit [facility] [address] [place] [phone] Esthela Kaye, SENIOR MAJOR GIFTS OFFICER [address] [address] documented as of this encounter Visit Diagnoses Not on filedocumented in this encounter Care Teams Solar Sales Rep Relationship Specialty Start Date End Date Brain Cyr DO PCP - General 07/14/18 Norma Rogel, LONI CT Registered Nurse 07/14/18 documented as of this encounter
--- OUTSIDE RECORDS SUMMARY | 2025-03-27 10:17 | XMS_ITS | Encounter Summary ---
Author Organization [facility] Address [address] [place] [address] Care Team Providers Care Combat Rifle Crewmember Name Role Phone Brain Cyr DO Primary Care Provider [phone] Norma Rogel RN Unavailable Unavailable Encounter Details Date Type Department Care Team (Late st Contact Info) Description 02/16/2025 Scanned Document [facility] at Home [address] [facility] [address] [place] [address] Provider, Generic Social History Tobacco [...] Recorded In the past 12 months has [employer], [employer], oil, or water [employer] threatened to shut off services in your [...] any time in the past 12 m [facility], were you homeless or living in a correction (including now)? No 01/10/2025 Sex and Gender [...] Procedure visit [facility] [address] [address] 04/18/2025 3:00 PM EST Procedure visit [facility] [address] [address] 05/17/2025 9:45 AM EST Office Visit [facility] [address] [place] [phone] Esthela Kaye, AUXILIARY EQUIPMENT OPERATOR [address] [address] documented as of this encounter Visit Diagnoses Not on filedocumented in this encounter Care Teams Combat Rifle Crewmember Relationship Specialty Start Date End Date Brain Cyr DO PCP - General 07/14/18 Norma Rogel, LONI CT Registered Nurse 07/14/18 documented as of this encounter
--- OUTSIDE RECORDS SUMMARY | 2025-03-27 10:18 | XMS_ITS | Encounter Summary ---
Author Organization Counts include 234 beds at the [facility] Address [address] [place] [address] Care Team Providers Care Siderographist Name Role Phone SheilaIzabella moreno ANGIE Unavailable [phone] Alo Mcgrath Primary Care Provider [phone] Encounter Details Date Type Department Care Team (Late st Contact Info) Description 03/20/2025 Orders Only Counts include 234 beds at the [facility] Department of Internal Medicine 1 [facility] [address] [place] [address] Alo Mcgrath PA 1 [facility] [address] [place] [address] Social History Tobacco Use Types Packs/Day Years Used Date Smoking Tobacco: Former Cigarettes 0.8 18 1 980 - 1997 Smokeless Tobacco: Never Alcohol Use Standard Drinks/Week Comments Yes 0 (1 standard drink = 0.6 oz pur e alcohol) daily 4 servings daily [facility] Utilities Answer Date Recorded In the past 12 months has th e [facility], gas, oil, or water [employer] threatened to shut off services in your home? No 05/20/2024 Overall Financial Resource Strain (CARDIA) Answe r Date Recorded How hard is it for you to pa y for the very basics like food, housing, medical care, and heating? Not hard at all 05/20/2024 PHQ-2 Answer Date Recorded PHQ-2 Score 0 02/24/2025 PRAPARE - Transportation Answer Date Re corded [...] living in a mcfp (including now)? No 05/20/2024 Diaper Assistance Answer [...] file Not on file Not on file COVID-19 Exposure Response Date Recorded In the last 10 days, have yo u been in contact with someone who was confirmed or suspected to have Coronavirus/COVID-19? No / Unsure 02/24/2025 1:10 PM EDT documented as of this encounter Plan of Treatment Upcoming Encounters Date Type Department Care Team (Late st Contact Info) Description 03/29/2025 11:50 AM EDT Office Visit Counts include 234 beds at the [facility] Department of Family Medicine [address] [place] [phone] Alo Mcgrath PA [address] [id number] 03/31/2025 1:00 PM EDT Office Visit Counts include 234 beds at the [facility] Department of Vascular Surgery [address] [place] [address] [address] [place] [address] Alfredo Moses MD [address] [place] [address] documented as of this encounter Visit Diagnoses Not on filedocumented in this encounter Care Teams Siderographist Relationship Specialty Start Date End Date Izabella Francis APRN PCP - Insurance Payer PCP 06/01/23 Alo Mcgrath PA [address] [address] PCP - General Internal Medicine 02/21/25 documented as of this encounter
--- OUTSIDE RECORDS SUMMARY | 2025-03-27 10:18 | XMS_ITS | Encounter Summary ---
Author Organization [facility] Address [address] [place] [address] Care Team Providers Care Hearing Dog Trainer Name Role Phone Brain Cyr DO Primary Care Provider [phone] Norma Rogel RN Unavailable Unavailable Encounter Details Date Type Department Care Team (Late st Contact Info) Description 03/11/2025 Scanned Document [facility] at Home [address] [facility] [address] [place] [address] Provider, Generic Social History Tobacco Use Types Packs/Day Years Used Date Smoking Tobacco: Former Cigarettes 1 10 0 07/14/1989 - 07/14/1999 Smokeless Tobacco: Never Alcohol Use Standard Drinks/Week Comments Yes 14 (1 standard drink = 0.6 oz pure alcohol) 2 vy, 2 shots liquor nightly, will stop pre op . Last drink 6 days ago. [facility] Utilities Answer Date Recorded In the past 12 months has [employer], [employer], oil, or water [employer] threatened to shut off services in your [...] any time in the past 12 m [facility], were you homeless or living in a senior living (including now)? No 01/10/2025 Sex and Gender [...] Procedure visit [facility] [address] [address] 04/18/2025 3:00 PM EST Procedure visit [facility] [address] [address] 05/17/2025 9:45 AM EST Office Visit [facility] [address] [place] [phone] Esthela Kaye, INVESTMENT BANKING ASSOCIATE [address] [address] documented as of this encounter Visit Diagnoses Not on filedocumented in this encounter Care Teams Hearing Dog Trainer Relationship Specialty Start Date End Date Brain yCr DO PCP - General 07/14/18 Norma Rogel, LONI CT Registered Nurse 07/14/18 documented as of this encounter
--- OUTSIDE RECORDS SUMMARY | 2025-03-27 10:18 | XMS_ITS | Encounter Summary ---
Author Organization [facility] Address [address] [place] [address] Care Team Providers Care Meter Shop Superintendent Name Role Phone Jenn Hu MD Primary Care Provider [phone] Encounter Details Date Type Department Care Team (Late st Contact Info) Description 02/01/2025 Lab Requisition [facility] - Main Lab [address] [facility] [place] [address] Jenn Hu MD [address] [place] [address] Essential (primary) hypertension Social History Tobacco Use Types Packs/Day Years Used Date Smoking Tobacco: Never Assessed Interpersonal Safety Answer Date Record ed Physical Abuse Unrecognized value 02/05/2025 Verbal Abuse Unrecognized value 02/05/2025 Sex and Gender Information Value Date [...] Date of Assessment Author No Risk Indicated 02/04/2025 3:20 PM EDT Roseanne Webster RN * [place] Suicide Severity Rating Scale (Screener/Recent Self-Report) Question Answer Date of Assessment Author 1. Wish to be (Past 1 Month) No 025 3:20 PM EDT Roseanne Webster RN documented as of this encounter Mental [...] Comprehensive metabolic panel (02/01/2025 8:24 AM EDT) [facility] Signature Sodium 139 133 - 145 mmol/L LAB CHEMISTRY METHOD 02/01/2025 11:49 AM [facility] LAB Potassium 3.5 3.5 - 5.5 mmol/L LAB CHEMISTRY METHOD 02/01/2025 11:49 AM [facility] LAB Chloride 103 96 - 110 mmol/L LAB CHEMISTRY METHOD 02/01/2025 11:49 AM [facility] LAB CO2 25 21 - 32 mmol/L LAB CHEMISTRY METHOD 02/01/2025 11:49 AM [facility] LAB Anion Gap 11 3 - 11 LAB CHEMISTRY METHOD 02/01/2025 11:49 AM [facility] LAB Glucose 76 70 - 100 mg/dL LAB CHEMISTRY METHOD 02/01/2025 11:49 AM [facility] LAB BUN 45(H) 5 - 25 mg/dL LAB CHEMISTRY METHOD 02/01/2025 11:49 AM [facility] LAB Creatinine 6.49(H) 0.70 - 1.30 mg/dL LAB CHEMISTRY METHOD 02/01/2025 11:49 AM [facility] LAB eGFR 9(L) >=60 mL/min/1. 73m2 LAB CHEMISTRY METHOD 02/01/2025 11:49 AM [facility] LAB Comment:Calculation based on the Chronic Kidney Disease Epidemiology Collaboration (CKD-EPI) equation refit without adjustment for race. BUN/Creatinine Ratio 6.9 LAB CHEMISTRY METHOD 02/01/2025 11:49 AM [facility] LAB Calcium 9.0 8.5 - 10.5 mg/dL LAB CHEMISTRY METHOD 02/01/2025 11:49 AM [facility] LAB AST (SGOT) 22 10 - 42 unit/L LAB CHEMISTRY METHOD 02/01/2025 11:49 AM [facility] LAB ALT (SGPT) 24 10 - 60 unit/L LAB CHEMISTRY METHOD 02/01/2025 11:49 AM [facility] LAB Alkaline Phosphatase 88 42 - 121 unit/L LAB CHEMISTRY METHOD 02/01/2025 11:49 AM [facility] Total Protein 6.7 6.0 - 8.0 g/dL LAB CHEMISTRY METHOD 02/01/2025 11:49 AM [facility] Albumin 3.4 3.2 - 5.0 g/dL LAB CHEMISTRY METHOD 02/01/2025 11:49 AM [facility] Total Bilirubin 1.1 0.0 - 1.4 mg/dL LAB CHEMISTRY METHOD 02/01/2025 11:49 AM T [facility] Blood Venous blood specimen / Unknown Venipuncture / Unknown 02/01/2025 8:24 AM EDT 02/01/2025 10:42 AM EDT us Jenn Hu MD LAB BLOOD ORDERABLES Final Resul t [facility] LAB [address] [place] [address], * (ABNORMAL) Complete blood count (02/01/2025 8:24 AM EDT) WBC 11.3(H) 4.8 - 10.8 K/mcL LAB HEMETOLOGY METHOD 02/01/2025 11:02 AM [facility] RBC 3.40(L) 4.50 - 5.50 M/mcL LAB HEMETOLOGY METHOD 02/01/2025 11:02 AM [facility] LAB Hemoglobin 11.8(L) 13.5 - 17.5 g/dL LAB HEMETOLOGY METHOD 02/01/2025 11:02 AM [facility] LAB Hematocrit 33.8(L) 42.0 - 54.0 % LAB HEMETOLOGY METHOD 02/01/2025 11:02 AM [facility] LAB MCV 100.9(H) 79.0 - 98.0 FL LAB HEMETOLOGY METHOD 02/01/2025 11:02 AM [facility] LAB MCH 35.2(H) 27.0 - 32.0 pcg LAB HEMETOLOGY METHOD 02/01/2025 11:02 AM [facility] LAB MCHC 34.9 32.0 - 37.0 g/dL LAB HEMETOLOGY METHOD 02/01/2025 11:02 AM EDT [facility] RDW 11.5 11.0 - 15.0 % LAB HEMETOLOGY METHOD 02/01/2025 11:02 AM EDT [facility] Platelets 187 130 - 400 K/mcL LAB HEMETOLOGY METHOD 02/01/2025 11:02 AM EDT [facility] LAB MPV 10.2 7.0 - 11.0 [...] 8:24 AM EDT 02/01/2025 10:42 AM EDT us Jenn Hu MD LAB BLOOD ORDERABLES Final Resul t [facility] [address] [place] [address], documented in this encounter Visit Diagnoses Diagnosis Essential (primary) hypertension Unspecified essential hypertension documented in this encounter Additional Health Concerns Infection Onset Date Last Indicated Resolved Time Respiratory Rule-Out 02/06/2025 02/07/20252 025 1:47 AM EDT COVID-19 Rule-Out 02/06/2025 02/07/2025 02/07/2025 1:47 AM EDT documented as of this encounter Care Teams Meter Shop Superintendent Relationship Specialty Start Date End Date Jenn Hu MD [address] [place] [address] [address] [place] [address] PCP - General Geriatric Medicine 02/01/25 documented as of this encounter
--- OUTSIDE RECORDS SUMMARY | 2025-03-27 10:18 | XMS_ITS | Encounter Summary ---
Author Organization [facility] Address [address] [place] [address] Care Team Providers Care Fermenter Name Role Phone Brain Cyr DO Primary Care Provider [phone] Norma Rogel RN Unavailable Unavailable Encounter Details Date Type Department Care Team (Late st Contact Info) Description 03/15/2025 Scanned Document [facility] at Home [address] [facility] [address] [place] [address] Provider, Generic Social History Tobacco Use Types Packs/Day Years Used Date Smoking Tobacco: Former Cigarettes 1 10 0 07/14/1989 - 07/14/1999 Smokeless Tobacco: Never Alcohol Use Standard Drinks/Week Comments Yes 14 (1 standard drink = 0.6 oz pure alcohol) 2 vy, 2 shots liquor nightly, will stop pre op . Last drink 6 days ago. [facility] Utilities Answer Date Recorded In the past 12 months has [employer], [employer], oil, or water [employer] threatened to shut off services in your [...] any time in the past 12 m [facility], were you homeless or living in a [...] visit [facility] [address] [address] 04/18/2025 3:00 PM EST Procedure visit [facility] [address] [address] 05/17/2025 9:45 AM EST Office Visit [facility] [address] [place] [phone] Esthela Kaye, SUPERVISOR BOILER REPAIR [address] [address] documented as of this encounter Visit Diagnoses Not on filedocumented in this encounter Care Teams Fermenter Relationship Specialty Start Date End Date Brain Cyr DO PCP - General 07/14/18 Norma Rogel, LONI [place] Registered Nurse 07/14/18 documented as of this encounter
--- OUTSIDE RECORDS SUMMARY | 2025-03-27 10:18 | XMS_ITS | Encounter Summary ---
Author Organization [facility] Address [address] [place] [address] Care Team Providers Care Twx Operator Name Role Phone Brain Cyr DO Primary Care Provider [phone] Norma Rogel RN Unavailable Unavailable Encounter Details Date Type Department Care Team (Late st Contact Info) Description 03/14/2025 Scanned Document [facility] at Home [address] [address] Provider, Generic Social History Tobacco Use Types Packs/Day Years Used Date Smoking Tobacco: Former Cigarettes 1 10 0 07/14/1989 - 07/14/1999 Smokeless Tobacco: Never Alcohol Use Standard Drinks/Week Comments Yes 14 (1 standard drink = 0.6 oz pure alcohol) 2 vy, 2 shots liquor nightly, will stop pre op . Last drink 6 days ago. [facility] Utilities Answer Date Recorded In the past 12 months has [employer], [employer], oil, or water [employer] threatened to shut off services in your [...] any time in the past 12 m [facility], were you homeless or living in [...] Procedure visit [facility] [address] [address] 04/18/2025 3:00 PM EST Procedure visit [facility] [address] [address] 05/17/2025 9:45 AM EST Office Visit [facility] [address] [place] [phone] Esthela Kaye, STYLE ADVISOR [address] [address] documented as of this encounter Visit Diagnoses Not on filedocumented in this encounter Care Teams Twx Operator Relationship Specialty Start Date End Date Brain Cyr DO PCP - General 07/14/18 Norma Rogel, LONI [place] Registered Nurse 07/14/18 documented as of this encounter
--- OUTSIDE RECORDS SUMMARY | 2025-03-27 10:18 | XMS_ITS | Encounter Summary ---
Author Organization [facility] Address [address] [place] [address] Care Team Providers Care Furniture Technician Name Role Phone Brain Cyr DO Primary Care Provider [phone] Norma Rogel RN Unavailable Unavailable Encounter Details Date Type Department Care Team (Late st Contact Info) Description 03/13/2025 Scanned Document [facility] at Home [address] [facility] [address] [place] [address] Provider, Generic Social History Tobacco Use Types Packs/Day Years Used Date Smoking Tobacco: Former Cigarettes 1 10 0 07/14/1989 - 07/14/1999 Smokeless Tobacco: Never Alcohol Use Standard Drinks/Week Comments Yes 14 (1 standard drink = 0.6 oz pure alcohol) 2 vy, 2 shots liquor nightly, will stop pre op . Last drink 6 days ago. [facility] Utilities Answer Date Recorded In the past 12 months has [employer], [employer], oil, or water [employer] threatened to shut off services in your [...] any time in the past 12 m [facility], were you homeless or living in [...] Procedure visit [facility] [address] [address] 04/18/2025 3:00 PM EST Procedure visit [facility] [address] [address] 05/17/2025 9:45 AM EST Office Visit [facility] [address] [place] [phone] Esthela Kaye, MANAGER OUTPATIENT [address] [address] documented as of this encounter Visit Diagnoses Not on filedocumented in this encounter Care Teams Furniture Technician Relationship Specialty Start Date End Date Brain Cyr DO PCP - General 07/14/18 Norma Rogel, LONI CT Registered Nurse 07/14/18 documented as of this encounter
--- OUTSIDE RECORDS SUMMARY | 2025-03-27 10:18 | XMS_ITS | Encounter Summary ---
Author Organization [facility] Address [address] [place] [address] Care Team Providers Care Patrol Guard Name Role Phone Brain Cyr DO Primary Care Provider [phone] Norma Rogel RN Unavailable Unavailable Encounter Details Date Type Department Care Team (Late st Contact Info) Description 03/21/2025 Scanned Document [facility] at Home [address] [facility] [address] [place] [address] Provider, Generic Social History Tobacco Use Types Packs/Day Years Used Date Smoking Tobacco: Former Cigarettes 1 10 0 07/14/1989 - 07/14/1999 Smokeless Tobacco: Never Alcohol Use Standard Drinks/Week Comments Yes 14 (1 standard drink = 0.6 oz pure alcohol) 2 vy, 2 shots liquor nightly, will stop pre op . Last drink 6 days ago. [facility] Utilities Answer Date Recorded In the past 12 months has [employer], oil, or water [employer] threatened to shut off services in [...] any time in the past 12 m [facility], were you homeless or living in a [...] Procedure visit [facility] [address] [address] 04/18/2025 3:00 PM EST Procedure visit [facility] [address] [address] 05/17/2025 9:45 AM EST Office Visit [facility] [address] [place] [phone] Esthela Kaye, HAND MOUNTER [address] [address] documented as of this encounter Visit Diagnoses Not on filedocumented in this encounter Care Teams Patrol Guard Relationship Specialty Start Date End Date Brain Cyr DO PCP - General 07/14/18 Norma Rogel, LONI CT Registered Nurse 07/14/18 documented as of this encounter
--- OUTSIDE RECORDS SUMMARY | 2025-03-27 10:18 | XMS_ITS | Encounter Summary ---
Author Organization [facility] Address [address] [place] [address] Care Team Providers Care Software Manager Name Role Phone Jenn Hu MD Primary Care Provider [phone] Encounter Details Date Type Department Care Team (Late st Contact Info) Description 02/03/2025 Lab Requisition [facility] - Main Lab [address] [facility] [place] [address] Jenn Hu MD [address] [place] [address] Vitamin D deficiency, unspecified; Cervicalgia; Weakness; Essential [...] 5:01 PM EDT Enid Hill RN * [place] Suicide Severity Rating Scale (Screener/Recent Self-Report) Question [...] documented as of this encounter Care Teams Software Manager Relationship Specialty Start Date End Date Jenn Hu MD [address] [place] [address] [address] [place] [address] PCP - General Geriatric Medicine 02/01/25 documented as of this encounter
--- OUTSIDE RECORDS SUMMARY | 2025-03-27 10:18 | XMS_ITS | Encounter Summary ---
Author Organization [facility] Address [address] [place] [address] Care Team Providers Care Graduating Machine Operator Name Role Phone Brain Cyr DO Primary Care Provider [phone] Norma Rogel RN Unavailable Unavailable Encounter Details Date Type Department Care Team (Late st Contact Info) Description 03/23/2025 Scanned Document [facility] at Home [address] [facility] [address] [place] [address] Provider, Generic Social History Tobacco Use Types Packs/Day Years Used Date Smoking Tobacco: Former Cigarettes 1 10 0 07/14/1989 - 07/14/1999 Smokeless Tobacco: Never Alcohol Use Standard Drinks/Week Comments Yes 14 (1 standard drink = 0.6 oz pure alcohol) 2 vy, 2 shots liquor nightly, will stop pre op . Last drink 6 days ago. [facility] Utilities Answer Date Recorded In the past 12 months has [employer], [employer], oil, or water [employer] threatened to shut off services in your [...] were you homeless or living in a fpc (including now)? No 01/10/2025 Sex and Gender [...] visit [facility] [address] [address] 04/18/2025 3:00 PM EST Procedure visit [facility] [address] [phone] 05/17/2025 9:45 AM EST Office Visit [facility] [address] [place] [phone] Esthela Kaye, ORACLE BUSINESS ANALYST [address] [address] documented as of this encounter Visit Diagnoses Not on filedocumented in this encounter Care Teams Graduating Machine Operator Relationship Specialty Start Date End Date Brain Cyr DO PCP - General 07/14/18 Norma Rogel, LONI CT Registered Nurse 07/14/18 documented as of this encounter
--- OUTSIDE RECORDS SUMMARY | 2025-03-27 10:18 | XMS_ITS | Encounter Summary ---
Author Organization [facility] Address [address] [place] [address] Care Team Providers Care Architect Name Role Phone Jenn Hu MD Primary Care Provider [phone] Encounter Details Date Type Department Care Team (Late st Contact Info) Description 02/17/2025 Lab Requisition [facility] - Main Lab [address] [facility] [place] [address] Jenn Hu MD [address] [place] [address] Vitamin D deficiency, unspecified; Cervicalgia; Weakness; Essential [...] of Assessment Author No 01/29/2025 4:44 PM DISHAT Caterina Paiz RN documented as of this encounter Mental Status * Because of a physical, mental, or emotional condition, do you have serious difficulty concentrating, remembering, or making decisions? (5 years old or older) Answer Entry Date Author No 01/29/2025 4:44 PM Caterina Garcia RN documented in this encounter Plan of Treatment Not on file documented as of this encounter Visit Diagnoses Diagnosis Vitamin D deficiency, unspecified Cervicalgia Weakness Other malaise and fatigue Essential (primary) hypertension Unspecified essential hypertension documented in this encounter Care Teams Architect Relationship Specialty Start Date End Date Jenn Hu MD [address] [place] [address] [address] [place] [address] PCP - General Geriatric Medicine 02/01/25 documented as of this encounter
--- OUTSIDE RECORDS SUMMARY | 2025-03-27 10:18 | XMS_ITS | Encounter Summary ---
Author Organization [facility] Address [address] [place] [address] Care Team Providers Care Dry House Attendant Name Role Phone Ger Brain Payan DO Primary Care Provider [phone] Norma Rogel RN Unavailable Unavailable Encounter Details Date Type Department Care Team (Late st Contact Info) Description 11/12/2021 Prep for Surgery [facility]PH[facility]ALMOLOGY [address] [place] [address] Demetrius Thompson MD [address] [place] [address] Social History Tobacco Use Types Packs/Day Years [...] EST Procedure visit [facility] [address] [place] [phone] 04/18/2025 3:00 PM EST Procedure visit [facility] [address] [phone] 05/17/2025 9:45 AM EST Office Visit [facility] [address] [phone] Esthela Kaye, SMOKING PIPE COATER [address] [phone] documented as of this encounter Visit Diagnoses Not on filedocumented in this encounter Additional Health Concerns Infection Onset Date Last Indicated Resolved Time R/O COVID-19 (PUI) 11/14/2021 11/14/2021 7:25 AM EDT documented as of this encounter Care Teams Dry House Attendant Relationship Specialty Start Date End Date Brain Cyr DO PCP - General 07/14/18 Norma Rogel, LONI CT Registered Nurse 07/14/18 documented as of this encounter
--- OUTSIDE RECORDS SUMMARY | 2025-03-27 10:18 | XMS_ITS | Encounter Summary ---
Author Organization [facility] Address [address] [place] [address] Care Team Providers Care Lubrication Worker Name Role Phone Brain Cyr DO Primary Care Provider [phone] Norma Rogel RN Unavailable Unavailable Encounter Details Date Type Department Care Team (Late st Contact Info) Description 03/17/2025 Scanned Document [facility] at Home 12[address] [facility] [address] [place] [address] Provider, Generic Social History Tobacco Use Types Packs/Day Years Used Date Smoking Tobacco: Former Cigarettes 1 10 0 07/14/1989 - 07/14/1999 Smokeless Tobacco: Never Alcohol Use Standard Drinks/Week Comments Yes 14 (1 standard drink = 0.6 oz pure alcohol) 2 vy, 2 shots liquor nightly, will stop pre op . Last drink 6 days ago. [facility] Utilities Answer Date Recorded In the past 12 months has [employer], oil, or water [employer] threatened to shut off services in your [...] any time in the past 12 m [facility], were you homeless or living in a care home (including now)? No 01/10/2025 Sex and [...] Procedure visit [facility] [address] [address] 04/18/2025 3:00 PM EST Procedure visit [facility] [address] [address] 05/17/2025 9:45 AM EST Office Visit [facility] [address] [place] [phone] Esthela Kaye, FINISHED STOCK INSPECTOR [address] [address] documented as of this encounter Visit Diagnoses Not on filedocumented in this encounter Care Teams Lubrication Worker Relationship Specialty Start Date End Date Brain Cyr DO PCP - General 07/14/18 Norma Rogel, LONI CT Registered Nurse 07/14/18 documented as of this encounter
--- OUTSIDE RECORDS SUMMARY | 2025-03-27 10:18 | XMS_ITS | Clinical Summary ---
Author Organization [facility] Address [address] [place] [address] Care Team Providers Care Cylindrical Mixer Name Role Phone Izabella Francis ANGIE Unavailable [phone] Alo Mcgrath Primary Care Provider [phone] Allergies Active Allergy Reactions Criticality Noted Date Comments No Known Allergies 06/05/2014 Sertraline Other (see comments) 10/14/2017 Medications omeprazole (PriLOSEC) 40 mg capsule Take 40 mg by mouth in the morning. Active carvediloL (COREG) 25 mg tablet TAKE 2 TABLETS BY MOUTH TWICE DAILY WITH FOOD 360 tablet 3 4 Active ALPRAZolam (XANAX) 0.25 mg tablet 1/2 to 1 tablet po 1-3 x daily prn severe anxiety -do not use daily only for rescue severe anxiety 30 tablet 1 4 Active ascorbic acid, vitamin C, (VITAMIN C) 1,000 mg tablet Take 1,000 mg by mouth. Active amLODIPine (NORVASC) 10 mg tablet TAKE 1 TABLET BY MOUTH EVERY DAY 90 tablet 5 Active tamsulosin (FLOMAX) capsule Take 0.4 mg by mouth in the morning. 5 Active oxyCODONE (ROXICODONE) 5 mg immediate release tablet 5 mg. 5 Active HYDROcodone-evelyn taminophen (NORCO) 10-325 mg per tablet Take 1 tablet by mouth every 6 (six) hours as needed for moderate pain (4-7). Max Daily Amount: 4 tablets 60 tablet 5 Active methocarbamoL (ROBAXIN) 750 mg tablet Take 1 tablet (750 mg total) by mouth in the morning and 1 tablet (750 mg total) at noon and 1 tablet (750 mg total) before bedtime. 90 tablet 1 5 Active apixaban (ELIQUIS) 5 mg Take 1 tablet (5 mg total) by mouth in the morning and 1 tablet (5 mg total) before bedtime. 180 tablet 1 5 Active methocarbamoL (ROBAXIN) 750 mg tablet Take 750 mg by mouth. 5 03/09/20 25 Discontinu ed(Reorder ) apixaban (ELIQUIS) 5 mg Take 1 tablet (5 mg total) by mouth in the morning and 1 tablet (5 mg total) before bedtime. 180 tablet 1 5 03/20/20 25 Discontinu ed(Reorder ) HYDROcodone-evelyn taminophen (NORCO) 10-325 mg per tablet Take 1 tablet by mouth every 6 (six) hours as needed for moderate pain (4-7). Max Daily Amount: 4 tablets 60 tablet 5 03/07/20 Discontinu ed(Reorder ) Active Problems Problem Noted Date Diagnosed Date Obesity (BMI 30-39.9) 08/05/2024 Osteoarthritis of right ankle and foot 4 Elevated PSA 05/14/2023 Assessment & Plan [...] Vaccinations-consider flu- Covid-RSV- Shingrix x 2- TDap Evgf-31-13-2024 Colonoscopy-last 11-27-2023 with EGD Assessment & Plan (04/10/2023 7:59 AM EST): EKG-l See today Baan-0-24-2023 < never obtained labs > still pending [...] asymptomatic Please continue best Anti GERD management .[place] continue PPI and best effort weight and [...] 7:26 AM EDT): Collaborative care with rheumatology [facility] Assessment & Plan (01/19/2020 8:48 AM EDT): [facility] collaborative --- asymptomatic at present Will follow clinically Assessment & Plan (04/26/2019 9:11 AM EST): No sign of flare to date Assessment & Plan (02/15/2019 2:51 PM EDT): 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 Previously improved with prednisone Seen [facility] Rheumatology Assessment & Plan (06/09/2018 2:50 PM EST): Acute exacerbation swelling in both hands Previously improved with prednisone Seen [facility] Rheumatology Assessment & Plan (10/27/2017 10:39 AM EDT): Differential Dx discussed in detail including: rheumatoid arthritis vs other small joint symmetrical arthritides Referral to [facility] Rheumatology - Brynn YOUSIF Will taper Prednisone by 5 mg every 3 days until off Recheck in 1 month or sooner if any acute concern Assessment & Plan (10/21/2017 8:35 AM EDT): Again Differential Dx discussed, including: inflammatory arthritis (favoring RA vs other), infectious arthritis (Lyme's testing pending) vs other Continue Prednisone - day 310 and Doxycycline day 3 Will follow clinically Recheck on Thursday or [...] - awaiting MACK Coping - working with [facility] Assessment & Plan (11/08/2021 8:16 AM EDT): [...] Plan (04/26/2019 9:13 AM EST): Anticipating TKA 12 -19 See care everywhere Midlevel clearance Assessment [...] that has since failed -> referral to [facility] for new equipment Assessment & Plan (03/14/2024 9:00 AM EDT): Multiple attempts at upgrading PAP equipment and setting up repeat PAP assessment for known IKE Both scheduled for [facility] IKE Assessment & Plan (06/08/2023 12:22 PM EST): Patient has to set up appointment with [facility] Assessment & Plan (05/14/2023 9:17 AM EST): AP use ---> continues albeit older equipment Patient has to set up appointment with [facility] Assessment & Plan (04/10/2023 7:19 AM EST): AP use ---> continues albeit older equipment Patient to inform when ready for repeat sleep study Assessment & Plan (11/27/2022 8:20 AM EDT): PAP use ---> continues albeit older equipment Patient to inform when ready for repeat sleep study Assessment & Plan (08/28/2022 9:50 AM EDT): Request for new equipment - Will make referral [facility] pulmonary and continue with best effort [...] DC. Start Zoloft 50 mg PO daily Encounters Date Type Department Care Team Description 03/20/2025 Orders Only [facility] Department of Internal Medicine [address] [place], [place] [id number] Alo Mcgrath PA 02/24/2025 1:10 PM EDT Office Visit [facility] [address] [place] [phone] Alo Mcgrath PA Cervical stenosis of spinal canal (Primary Dx); Cervical radiculopathy; Deep vein thrombosis (DVT) of left lower extremity, unspecified chronicity, unspecified vein (HCC); Pneumonia due to infectious organism, unspecified laterality, unspecified part of lung; Function kidney decreased; Hyponatremia; Urinary retention; Anemia, unspecified type from Last 3 Months Immunizations Immunization Administration Dates Next Due Influenza [...] pur e alcohol) daily [facility] Utilities Answer Date Recorded In the past 12 months has e [facility], gas, oil, or water [employer] | [employer] threatened to shut off services in your [...] any time in the past 12 m [facility], were you homeless or living in [...] Sign Reading Time Taken Comments Blood Pressure 120/76 02/24/2025 1:14 PM EDT Pulse 77 02/24/2025 1:14 PM EDT Temperature 37 C (98.6 F) 10/18/2022 9:10 AM EDT Respiratory Rate 14 02/24/2025 1:14 PM EDT Oxygen Saturation 99% 02/24/2025 1:14 PM EDT Inhaled Oxygen Concentration - - Weight 96.6 kg (213 lb) 02/24/2025 1:14 PM EDT Height 167.6 cm (5' 6 ) 10/18/2022 9:10 AM EDT Body Mass Index 34.38 10/18/2022 9:10 AM EDT Plan of Treatment Upcoming Encounters Date Type Department Care Team (Late st Contact Info) Description 03/29/2025 11:50 AM EDT Office Visit [facility] [address] [place] [address] Alo Mcgrath PA [address] [facility] [address] [place] [address] 03/31/2025 1:00 PM EDT Office Visit [facility] [address] [facility] [address] [place] [address] Alfredo Moses MD [address] [place], [place] [phone] Health Maintenance Due Date Last Done Comments CT Colonography 1961 FIT-DNA (Cologuard) 1961 FIT 1961 FOBT 1961 Flex Sigmoidoscopy - 5y 1961 HIV Screening 1961 DTaP,Tdap,and Td Vaccines (1 - Tdap) 12/15/1979 Hepatitis C Screening 12/15/1979 Zoster Vaccines (1 of 2) 12/15/2011 Pneumococcal Vaccine, 50+ Years (2 of 2 - PCV20 or PCV21) 04/17/2017 04/17/2016 COVID-19 Vaccine ( season) 2025 Influenza Vaccine [...] Procedure Name Priority Date/Time Associated Diagnosis Comments IRON, TIBC AND FERRITIN PANEL (Q) Routine 02/27/2025 10:22 AM EDT Anemia, unspecified type CBC (H/H, RBC, INDICES, WBC, PLT) (Q) Routine 02/27/2025 10:22 AM EDT Anemia, unspecified type HM COLONOSCOPY Routine 07/22/2012 from Last 3 Months or Most Recently Relevant to Health Maintenance Results * (ABNORMAL) CBC (H/H, RBC, INDICES, WBC, PLT) (Q) (02/27/2025 10:22 AM EDT) White Cell Count 8.7 3.8 - 10.8 Thousand/ uL [employer] Red Cell Count 4.03(L) 4.20 - 5.80 Million/u L [employer] Hemoglobin 12.9(L) 13.2 - 17.1 g/dL [employer] Hematocrit 39.3 38.5 - 50.0 % [facility] MCV 97.5 80.0 - 100.0 fL [facility] MCH 32.0 27.0 - 33.0 pg [facility] MCHC 32.8 32.0 - 36.0 g/dL [employer] Comment: For adults, a slight decrease in the calculated MCHC value (in the range of 30 to 32 g/dL) is most likely not clinically significant; however, it should be interpreted with caution in correlation with other red cell parameters and the patient's clinical condition. RBC Distribution Width 11.9 11.0 - 15.0 % [facility] Platelet Count 293 140 - 400 Thousand/ uL [employer] MPV 9.8 7.5 - 12.5 fL [employer] 02/27/2025 10:2 2 AM EDT 02/27/2025 10:23 AM EDT us Alo MARIEE [facility] ORDERABLES Kimi l Result Performing Organization Address [facility]/ZIP Co de Phone Number [facility] [address] [place] [address] * (ABNORMAL) IRON, TIBC AND FERRITIN PANEL (Q) (02/27/2025 10:22 AM EDT) [facility] IRON, TOTAL 50 50 - 180 mcg/dL [facility] IRON BINDING CAPACITY 263 250 - 425 mcg/dL (calc) [facility] % SATURATION 19(L) 20 - 48 % (calc) [facility] FERRITIN 440(H) 24 - 380 ng/mL [employer] 02/27/2025 10:2 2 AM EDT 02/27/2025 10:23 AM EDT Alo TREVINO [facility] ORDERABLES Kimi l Result Performing Organization Address [facility] Co de Phone Number [facility] [address] [place] [address] * Colonoscopy (07/22/2012) Pathologist [facility] Colonoscopy completed Historical Provider HEALTH MAINTENANCE Final Result from Last 3 Months or Most Recently Relevant to Health Maintenance Insurance [facility] Care Teams Cylindrical Mixer Relationship Specialty Start Date End Date Izabella Francis APRN PCP - Insurance Payer PCP 06/01/23 Alo Mcgrath PA [address] [address] PCP - General Internal Medicine 02/21/25"
--- OUTSIDE RECORDS SUMMARY | 2025-03-27 10:18 | XMS_ITS | Encounter Summary ---
Author Organization [facility] Address [address] [place] [address] Care Team Providers Care Surveillance Camera Technician Name Role Phone Brain Cyr DO Primary Care Provider [phone] Norma Rogel RN Unavailable Unavailable Encounter Details Date Type Department Care Team (Late st Contact Info) Description 03/22/[address] [facility] at Home [address] [facility] [address] [place] [address] Provider, Generic Social History Tobacco Use Types Packs/Day Years Used Date Smoking Tobacco: Former Cigarettes 1 10 0 07/14/1989 - 07/14/1999 Smokeless Tobacco: Never Alcohol Use Standard Drinks/Week Comments Yes 14 (1 standard drink = 0.6 oz pure alcohol) 2 vy, 2 shots liquor nightly, will stop pre op . Last drink 6 days ago. [facility] Utilities Answer Date Recorded In the past 12 months has [employer], [employer], oil, or water [employer] threatened to shut off services in your [...] any time in the past 12 m [facility], were you homeless or living in a [...] Procedure visit [facility] [address] [phone] 04/18/2025 3:00 PM EST Procedure visit [facility] [address] [phone] 05/17/2025 9:45 AM EST Office Visit [facility] [address] [place] [phone] Esthela Kaye, CARTOGRAPHIC AIDE [address] [address] documented as of this encounter Visit Diagnoses Not on filedocumented in this encounter Care Teams Surveillance Camera Technician Relationship Specialty Start Date End Date Brain Cyr DO PCP - General 07/14/18 Norma Rogel, LONI [place] Registered Nurse 07/14/18 documented as of this encounter
--- OUTSIDE RECORDS SUMMARY | 2025-03-27 10:18 | XMS_ITS | Encounter Summary ---
Author Organization [facility] Address [address] [place] [address] Care Team Providers Care Wound Care Coordinator Name Role Phone JoealejandraBrain DO Primary Care Provider [phone] Norma Rogel RN Unavailable Unavailable Encounter Details Date Type Department Care Team (Late st Contact Info) Description 10/20/2022 Erroneous Encounter [facility] [address] [place] [address] Provider, MD Darell Social History Tobacco Use [...] Procedure visit [facility] [address] [phone] 04/18/2025 3:00 PM EST Procedure visit [facility] [address] [phone] 05/17/2025 9:45 AM EST Office Visit [facility] [address] [facility] [address] [place] [address] Esthela Kaye, COMPENSATION/BENEFITS SPECIALIST [address] [facility] [address] [place], [place] [address] documented as of this encounter Visit Diagnoses Not on filedocumented in this encounter Care Teams Wound Care Coordinator Relationship Specialty Start Date End Date Brain Cyr DO PCP - General 07/14/18 Norma Rogel, LONI [place] Registered Nurse 07/14/18 documented as of this encounter
--- OUTSIDE RECORDS SUMMARY | 2025-03-27 10:18 | XMS_ITS | Encounter Summary ---
Author Organization [facility] Address [address] [place] [address] Care Team Providers Care Junior Web Developer Name Role Phone Brain Cyr DO Primary Care Provider [phone] Norma Rogel RN Unavailable Unavailable Encounter Details Date Type Department Care Team (Late st Contact Info) Description 03/08/2025 Scanned Document [facility] at Home [address] [facility] [address] [place] [address] Provider, Generic Social History Tobacco Use Types Packs/Day Years Used Date Smoking Tobacco: Former Cigarettes 1 10 0 07/14/1989 - 07/14/1999 Smokeless Tobacco: Never Alcohol Use Standard Drinks/Week Comments Yes 14 (1 standard drink = 0.6 oz pure alcohol) 2 vy, 2 shots liquor nightly, will stop pre op . Last drink 6 days ago. [facility] Utilities Answer Date Recorded In the past 12 months has [employer], [employer], oil, or water [employer] threatened to shut off services in your [...] any time in the past 12 m [facility], were you homeless or living in a [facility] (including now)? No 01/10/2025 Sex and Gender [...] Procedure visit [facility] [address] [phone] 04/18/2025 3:00 PM EST Procedure visit [facility] [address] [phone] 05/17/2025 9:45 AM EST Office Visit [facility] [address] [place] [phone] Esthela Kaye, WASHING MACHINE OPERATOR [address] [address] documented as of this encounter Visit Diagnoses Not on filedocumented in this encounter Care Teams Junior Web Developer Relationship Specialty Start Date End Date Brain Cyr DO PCP - General 07/14/18 Norma Rogel, LONI [place] Registered Nurse 07/14/18 documented as of this encounter
--- OUTSIDE RECORDS SUMMARY | 2025-03-27 10:18 | XMS_ITS | Encounter Summary ---
Author Organization [facility] Address [address] [place] [address] Care Team Providers Care Production Recorder Name Role Phone Brain Cyr DO Primary Care Provider Norma Rogel RN Unavailable Unavailable Encounter Details Date Type Department Care Team (Latest Contact Info) Description 03/24/2025 Travel Social History Tobacco Use Types Packs/Day Years Used Date Smoking Tobacco: Former Cigarettes 1 10 0 07/14/1989 - 07/14/1999 Smokeless Tobacco: Never Alcohol Use Standard Drinks/Week Comments Yes 14 (1 standard drink = 0.6 oz pure alcohol) 2 vy, 2 shots liquor nightly, will stop pre op . Last drink 6 days ago. [facility] Utilities Answer Date Recorded In the past 12 months has e electric, gas, oil, or water company threatened to [...] time in the past 12 m [facility], were you homeless or living in a [...] Procedure visit [facility] [address] [phone] 04/18/2025 3:00 PM EST Procedure visit [facility] [address] [phone] 05/17/2025 9:45 AM EST Office Visit [facility] [address] [phone] Esthela Kaye, ANGIE [address] [address] documented as of this encounter Visit Diagnoses Not on filedocumented in this encounter Care Teams Production Recorder Relationship Specialty Start Date End Date Brain Cyr DO PCP - General 07/14/18 Norma Rogel, LONI [place] Registered Nurse 07/14/18 documented as of this encounter
--- OUTSIDE RECORDS SUMMARY | 2025-03-27 10:18 | XMS_ITS | Encounter Summary ---
Author Organization [facility] Address [address] [place] [address] Care Team Providers Care Mold Checker Name Role Phone Brain Cyr DO Primary Care Provider [phone] Norma Rogel RN Unavailable Unavailable Encounter Details Date Type Department Care Team (Late st Contact Info) Description 03/10/2025 Scanned Document [facility] at Home [address] [facility] [address] [place] [address] Provider, Generic Social History Tobacco Use Types Packs/Day Years Used Date Smoking Tobacco: Former Cigarettes 1 10 0 07/14/1989 - 07/14/1999 Smokeless Tobacco: Never Alcohol Use Standard Drinks/Week Comments Yes 14 (1 standard drink = 0.6 oz pure alcohol) 2 vy, 2 shots liquor nightly, will stop pre op . Last drink 6 days ago. [facility] Utilities Answer Date Recorded In the past 12 months has [employer], [employer], oil, or water [employer] threatened to shut off services in your [...] in the past [address] [facility], were you homeless or living in a [...] Procedure visit [facility] [address] [address] 04/18/2025 3:00 PM EST Procedure visit [facility] [address] [phone] 05/17/2025 9:45 AM EST Office Visit [facility] [address] [place] [phone] Esthela Kaye, MATERIAL PLANNER [address] [address] documented as of this encounter Visit Diagnoses Not on filedocumented in this encounter Care Teams Mold Checker Relationship Specialty Start Date End Date Brain Cyr DO PCP - General 07/14/18 Norma Rogel, LONI [place] Registered Nurse 07/14/18 documented as of this encounter
--- OUTSIDE RECORDS SUMMARY | 2025-04-21 20:00 | XMS_ITS | Clinical Summary ---
Author Organization Unknown Care Team Providers Care Doctor Of Naprapathic Medicine Name Role Phone DIANA HAGEN Unavailable Unavailable EMERITA PT, DENNISE Unavailable Unavailable [facility] PRES[facility], KAREN Unavailable Unavailable CONNER OT, DYANN Unavailable Unavailable OUIMET AIDE, SANDI Unavailable Unavaila jose ACUÑA RN, TAMAR Unavailable Unavailable ROSENDA ZUNIGA, ANA Unavailable Unavailab CASSIDY Hensley Unavailable Unavailabl e Payers Payer Name Policy Type Policy Number Effective Date Expira tion Date [facility] - COMMERCIAL - PER VISIT [id number] SELF PAY Problems Condition Name Condition Details [...] [BMI] 36.0-36.9, ADULT Active 02-22 00:00: 00 PRISON (CURRENT) USE OF ANTICOAGULAN TS Active 02-22 [...] 5 mg tablet 02-08 00:00: 00 Yes [id number] BLOOD CLOT 5 mg 2 TIMES DAILY 5 mg 2 TIMES DAILY (route: oral) Med Classific ation: Hematolog ical Agents tamsulosin 0.4 mg capsule 02-08 00:00: 00 Yes [id number] 2 capsule BEDTIME 2 capsule BEDTIME (route: oral) Med Classific ation: Genitouri nary Therapy docusate sodium 100 mg capsule 01-25 00:00: 00 02-22 00:00 :00 No [id number] Per instruc tions Per instructio ns (route: oral) Med Classific ation: Gastroint estinal Therapy Agents oxycodone 5 mg tablet 01-25 00:00: 00 Yes [id number] PAIN 5 mg EVERY 8 HOURS 5 mg EVERY 8 HOURS (route: oral) Med Classific ation: Analgesic , Anti-infl ammatory or Antipyret ic methocarbam ol 750 mg tablet 01-08 00:00: 00 Yes [id number] SPASM 750 mg EVERY 12 HOURS 750 mg EVERY 12 HOURS (route: oral) Med Classific ation: Locomotor System naproxen 500 mg tablet 01-08 00:00: 00 02-22 00:00 :00 No [id number] Per instruc tions TWICE A DAY NEEDED Per instructio ns TWICE A DAY NEEDED (route: oral) Med Classific ation: Analgesic , Anti-infl ammatory or Antipyret ic amlodipine 10 mg tablet 02-22 00:00: 00 Yes [id number] BLOOD PRESSURE 10 mg DAILY 10 mg DAILY (route: oral) Med Classific ation: Cardiovas cular Therapy Agents carvedilol 25 mg tablet 02-22 00:00: 00 Yes [id number] BLOOD PRESSURE 25 mg 2 TIMES DAILY 25 mg 2 TIMES DAILY (route: oral) Med Classific ation: Cardiovas cular Therapy Agents Vital Signs Vital Name Observation Time Observation Value Commen ts Temperature 2025-03-23 09:40:00.000 98.2 [degF] Temperature 2025-03-22 [...] kg/m2 Height 2025-02-22 11:56:18.000 64 [in_us] Pulse 2025-03-23 09:40:00.000 72 /min Pulse 2025-03-22 [...] 2025-02-22 12:19:00.000 62 /min O2 Saturation (%) 2025-03-23 09:40:00.000 98 % [...] Saturation (%) 2025-02-22 12:19:00.000 98 % Respirations 2025-03-23 09:40:00.000 15 /min Respirations 2025-03-22 [...] 2025-02-22 11:56:25.000 215 [lb_av] Systolic Blood Pressure 2025-03-23 09:40:00.000 140 mm [...] 12:19:00.000 128 mm [Hg] Diastolic Blood Pressure 2025-03-23 09:40:00.000 [...] BODY MECHANICS AND/OR USE OF EQUIPMENT. PHYSICAL THERAPIST/BUFFET WAITER/WAITRESS TO OBTAIN O2 SATS EACH VISIT TO [...] BODY MECHANICS AND/OR USE OF EQUIPMENT. PHYSICAL THERAPIST/BUFFET WAITER/WAITRESS TO OBTAIN O2 SATS EACH VISIT TO [...] IMPROVE PATIENT SAFETY IN FUNCTIONAL ACTIVITIES. OCCUPATIONAL THERAPIST/BUFFET WAITER/WAITRESS TO OBTAIN 02 SATS EACH VISIT TO [...] IMPROVE PATIENT SAFETY IN FUNCTIONAL ACTIVITIES. OCCUPATIONAL THERAPIST/BUFFET WAITER/WAITRESS TO OBTAIN 02 SATS EACH VISIT TO [...] INCREASE MOBILITY. PATIENT WILL RECEIVE MEDICATIONS PRESCRIBED. Encounters Start Date/Time End Date/Time Encounter Type Admission Type Attending [facility] Care [facility] Care Department Encounter ID Discharge Date Discharge Status Discharge Condition Discharge Reason Percent Goals Met 2025-02-22 00:00:00 2025-04-22 00:00:00 Outpatient NEW ADMISSION [facility] [id number] 52.54
== END 2025-03-27 15:39 | disposition home or self-care (01) ==
LOC: HO.HOSX 15:38
PROVIDERS: Visit Provider Physician Assistant
DX: Z13.89 Encounter for screening for other disorder (principal)

== ENCOUNTER 2025-04-03 09:48 | Outpatient (AMB) | payer BC, SELFPAY ==
--- OUTSIDE RECORDS SUMMARY | 2025-03-29 10:50 | XMS_ITS | Encounter Summary ---
[facility] Organization [facility] Address [address] [place] [address] Care Team Providers Care Master Control Technician Name Role Phone Izabella Francis ANGIE Unavailable [phone] Diana Mcgrath Primary Care Provider [phone] Reason for Visit * Reason Comments Follow-up Encounter Details Date Type Department Care Team (Late st Contact Info) Description 03/29/2025 11:50 AM EDT [facility] Department of Family Medicine [address] [place] [address] Diana Mcgrath PA 1 [facility] [address] [place], [place] [phone] Cervical stenosis of spinal canal (Primary Dx); Cervical radiculopathy; Deep vein thrombosis (DVT) of left lower extremity, unspecified chronicity, unspecified vein (HCC); Function kidney decreased; Hyponatremia; Urinary retention; Anemia, unspecified type Social History Tobacco Use Types Packs/Day Years Used Date Smoking Tobacco: Former Cigarettes 0.8 18 1 980 - 1998 Smokeless Tobacco: Never Alcohol Use Standard Drinks/Week Comments Yes 0 (1 standard drink = 0.6 oz pur e alcohol) daily 4 servings daily [facility] Utilities Answer Date Recorded In the [...] PHQ-2 Answer Date Recorded PHQ-2 Score 0 03/29/2025 PRAPARE - Transportation Answer Date Re corded [...] time in the past 12 m [facility], were you homeless or living in a alf (including now)? No 05/20/2024 Diaper Assistance Answer [...] suspected to have Coronavirus/COVID-19? No / Unsure 03/29/2025 11:50 AM EDT documented as of this encounter Last Filed Vital Signs Vital Sign Reading Time Taken Comments Blood Pressure 145/77 03/29/2025 11:53 AM EDT Pulse 67 03/29/2025 11:53 AM EDT Temperature - - Respiratory Rate 16 03/29/2025 11:53 AM EDT Oxygen Saturation 97% 03/29/2025 11:53 AM EDT Inhaled Oxygen Concentration - - Weight 102 kg (225 lb 9.6 oz) 03/29/2025 11:53 A M EDT Height - - Body Mass Index 36.41 10/18/2022 9:10 AM EDT documented in this encounter Progress Notes * Diana Mcgrath PA - 03/29/2025 11:50 AM EDT Follow-up Note Patient ID: Lopez Jackson is a 64 y.o. male. Subjective Chief Complaint Patient presents with Follow-up The patient is a 64-year-old male presenting today for scheduled recheck appointment secondarily tovarious medical conditions as below and ongoing evaluation; patient has continuing collaborative care with neurosurgery and also urology. Review of Systems Constitutional: Negative for fatigue. HENT: Negative for congestion. Respiratory: Negative for cough and shortness of breath. Cardiovascular: Negative for palpitations. Gastrointestinal: Negative for abdominal pain, constipation and diarrhea. Genitourinary: Positive for difficulty urinating. Musculoskeletal: Positive for back pain and neck pain. Skin: Negative for rash. Neurological: Positive for weakness and numbness. Psychiatric/Behavioral: Negative for dysphoric mood. The patient is not nervous/anxious. Medications Ordered Prior to Encounter[1] Allergies: No known allergies and Sertraline Objective BP (!) 145/77 Pulse 67 Resp 16 Wt 102 kg (225 lb 9.6 oz) SpO2 97% BMI 36.41 kg/m?? Physical Exam Vitals reviewed. Constitutional: General: He is not in acute distress. Appearance: Normal appearance. HENT: Head: Normocephalic. Right Ear: External ear normal. Left Ear: External ear normal. Nose: Nose normal. Neurological: General: No focal deficit present. Mental Status: He is alert and oriented to person, place, and time. Cranial Nerves: No cranial nerve deficit. Psychiatric: Mood and Affect: Mood normal. Behavior: Behavior normal. Thought Content: Thought content normal. Judgment: Judgment normal. Assessment Visit Diagnosis ICD-10-CM 1. Cervical stenosis of spinal canal M48.02 2. Cervical radiculopathy M54.12 3. Deep vein thrombosis (DVT) of left lower extremity, unspecified chronicity, unspecified vein (HCC) I82.402 4. Function kidney decreased N28.9 5. Hyponatremia E87.1 6. Urinary retention R33.9 7. Anemia, unspecified type D64.9 Plan Reviewed patient's various hospitalization records, diagnostics and labs, essentially patient with severe cervical spinal stenosis necessitating surgery which she had at the end of December and subsequent fdc facility with development of urinary tract infection with urinary retention, pneumonia, blood clot in left lower extremity along with question of pulmonary embolism started on anticoagulation and various lab abnormalities with kidney function, hyponatremia, and anemia Patient presents today doing fairly well, has indwelling [place] catheter collaborative care with urology for urinary retention, voiding trial to be performed next week, pneumonia has been treated, will make referral to vascular surgery for left lower extremity DVT and consideration for further evaluation, Eliquis for anticoagulation, will update labs as below for anemia, advised on iron supplementation Will send over symptomatic management for the patient given ongoing pain from surgery and subsequent complications, will recheck as below Since previous presentation patient did have a voiding trial however was unable to void and continues with catheterization, further evaluation to be performed by urology with urodynamics, does have pending recheck appointment with his neurosurgeon next week complains of persistent neck and upper extremity discomfort, does have some symptom relief with [place] and muscle relaxer, would like to add on gabapentin as well for more longitudinal management, discussed potential side effects, recheck as below No problem-specific Assessment & Plan notes found for this encounter. No orders of the defined types were placed in this encounter. Return in about 3 months (around 06/29/2025). No LOS data to display Prepared/Electronically Signed by: DIANA MCGRATH PA, 03/29/25 1:15 PM [1] Current Outpatient Medications on File Prior to Visit Medication Sig Dispense Refill ALPRAZolam (XANAX) 0.25 mg tablet 1/2 to 1 tablet po 1-3 x daily prn severe anxiety -do not use daily only for rescue severe anxiety 30 tablet 1 amLODIPine (NORVASC) 10 mg tablet TAKE 1 TABLET BY MOUTH EVERY DAY 90 tablet 0 apixaban (ELIQUIS) 5 mg Take 1 tablet (5 mg total) by mouth in the morning and 1 tablet (5 mg total) before bedtime. 180 tablet 1 ascorbic acid, vitamin C, (VITAMIN C) 1,000 mg tablet Take 1,000 mg by mouth. carvediloL (COREG) 25 mg tablet TAKE 2 TABLETS BY MOUTH TWICE DAILY WITH FOOD 360 tablet 3 docusate sodium (COLACE) 100 mg capsule Take 100 mg by mouth 2 (two) times a day as needed. methocarbamoL (ROBAXIN) 750 mg tablet Take 1 tablet (750 mg total) by mouth in the morning and 1 tablet (750 mg total) at noon and 1 tablet (750 mg total) before bedtime. 90 tablet 1 omeprazole (PriLOSEC) 40 mg capsule Take 40 mg by mouth in the morning. tamsulosin (FLOMAX) capsule Take 0.4 mg by mouth in the morning. No current facility-administered medications on file prior to visit. documented in this encounter Plan of Treatment Upcoming Encounters Date Type Department Care Team (Late st Contact Info) Description 05/19/2025 11:30 AM EST Ancillary Procedure [facility] [address] [place] [phone] Ann Collins PA-C [address] [facility] [place] [address] 05/19/2025 12:00 PM EST Office Visit [facility] [address] [place] [phone] Alfredo Moses MD [address] [place] [address] 06/28/2025 9:10 AM EST Office Visit [facility] [address] [place] [address] Diana Mcgrath PA 1 [facility] [address] [place] [address] documented as of this encounter Visit Diagnoses Diagnosis Cervical stenosis of spinal canal- Primary Spinal stenosis in cervical region Cervical radiculopathy Brachial neuritis or radiculitis nos Deep vein thrombosis (DVT) of left lower extremity, unspecified chronicity, unspecified vein (HCC) Function kidney decreased Nonspecific abnormal results of kidney function study Hyponatremia Hyposmolality and/or hyponatremia Urinary retention Unspecified retention of urine Anemia, unspecified type documented in this encounter Care Teams Master Control Technician Relationship Specialty Start Date End Date Danitza FrancisbethANGIE PCP - Insurance Payer PCP 06/01/23 Diana Mcgrtah PA [address] [address] PCP - General Internal Medicine 02/21/25 documented as of this encounter
--- OUTSIDE RECORDS SUMMARY | 2025-03-31 12:00 | XMS_ITS | Encounter Summary ---
Author Organization [facility] Address [address] [place] [address] Care Team Providers Care Siding Coreboard Inspector Name Role Phone Izabella Francis ANGIE Unavailable [phone] Alo Mcgrath Primary Care Provider [phone] Reason for Referral * Diagnostic Imaging (Routine) - Pending Review Specialty Diagnoses / Procedures Referred By Trevor nieto Referred To Contact Radiology Diagnoses Acute deep vein thrombosis of left peroneal vein (HCC) Procedures Venous doppler lower extremity left Ann Collins PA-C [address] [facility] [place] [address] Phone: tel: fax: Referral ID Status Reason Start Date Expiration Date V isits Requested Visits Authorized [id number] Pending Review 03/31/2025 05/05/2026 1 1 Reason for Visit * Reason Comments Deep Vein Thrombosis * Surgical (Routine) - Closed Specialty Diagnoses / Procedures Referred By Contha t Referred To Contact Vascular Surgery Diagnoses Deep vein thrombosis (DVT) of left lower extremity, unspecified chronicity, unspecified vein (HCC) Alo Mcgrath PA 1 [facility] [address] [place] [address] Phone: tel: fax: [facility] Department of Vascular Surgery 1 [facility],[address] [place] [address] Phone: tel: Referral ID Status Reason Start Date Expiration Date Visits Re quested Visits Authorized [id number] Closed 02/24/2025 03/31/2026 1 1 Encounter Details Date Type Department Care Team (Late st Contact Info) Description 03/31/2025 1:00 PM EDT Office Visit [facility] Department of Vascular Surgery [address] [place] [address] [address] [place] [phone] Alfredo Moses MD [address] [place] [address] Ann Collins, PAEddieC 263 [facility] [place] [address] Acute deep vein thrombosis of left peroneal vein (HCC) (Primary Dx) Social History Tobacco Use Types Packs/Day Years Used Date Smoking Tobacco: Former Cigarettes 0.8 18 1 980 - 1997 Smokeless Tobacco: Never Alcohol Use Standard Drinks/Week Comments Yes 0 (1 standard drink = 0.6 oz pur e alcohol) daily 4 servings daily [facility] Utilities Answer Date Recorded In the [...] living in a halfway (including now)? No 05/20/2024 Diaper Assistance Answer [...] surgery. He had been discharged to a residential facility where they had noted left lower [...] PSH Past Medical History: Diagnosis Date Anxiety Airta's esophagus with esophagitis egd 10/10/2013 Closed right [...] of the ankle, calf is soft and [id number] to palpation, no skin discoloration, palpable DP [...] This medical document was created using the Kiyonation System. Although this document has been carefully [...] of education: 12 Occupational History Occupation: holds [employer] Comment: 50 hrs week 1st shift /tristate [...] Insecurity: No Food Insecurity (01/10/2025) Received from [facility] Hunger Vital Sign Within the past 12 months, you worried that your food would run out before you got the money to buymore.: Never true Within the past 12 months, the food you bought just didn't last and you didn't have money to get more.: Never true Housing Stability: Low Risk (01/10/2025) Received from [facility] Housing Stability Vital Sign In the last 12 months, was there a time when you were not able to pay the mortgage or rent on time?: No In the past 12 months, how many times have you moved where you were living?: 0 At any time in the past 12 months, were you homeless or living in a halfway (including now)?: No Transportation Needs: No Transportation Needs (01/10/2025) Received from [facility] PRAPARE - Transportation In the past 12 [...] Alcohol Use: Alcohol Misuse (01/10/2025) Received from [facility] AUDIT-C Q1: How often do you have [...] Resource Strain: Low Risk (01/10/2025) Received from [facility] Overall Financial Resource Strain (CARDIA) Difficulty of Paying Living Expenses: Not very hard Utilities: Not At Risk (01/10/2025) Received from [facility] Utilities Threatened with loss of utilities: No [...] Description 05/19/2025 11:30 AM EST Ancillary Procedure [facility] of Vascular Surgery [address] [place] [phone] Ann Collins PA-C [address] [place] [address] [place] [address] 05/19/2025 12:00 PM EST Office Visit [facility] of Vascular Surgery [address] [place] [address] 2 [place] [phone] Alfredo Moses MD [address] [place], [place] [address] 06/28/2025 9:10 AM EST Office Visit [facility] of Family Medicine [address] [place] [phone] Alo Mcgrath PA [address] [place] [address] Scheduled Orders Name Type Priority Associated Diagnoses Order Schedule Venous doppler lower extremity left Vascular Ultrasound Routine Acute deep vein thrombosis of left peroneal vein (HCC) 1 Occurrences starting 03/31/2025 until 03/31/2026 documented as of this encounter Visit Diagnoses Diagnosis Acute deep vein thrombosis of left peroneal vein (HCC)- Primary documented in this encounter Care Teams Siding Coreboard Inspector Relationship Specialty Start Date End Date Izabella Francis APRN PCP - Insurance Payer PCP 06/01/23 Alo Mcgrath PA [address] [address] [place] [address] PCP - General Internal Medicine 02/21/25 documented as of this encounter
--- NOTE | 2025-04-03 10:03 | A.SPINEOV_ITS ---
Intake Visit Reasons: 2nd post op with Xrays Intake Note: Mr. Jackson is here today fo his 2nd post op appointment with x-rays. Import/Export Analyst Required: No Allergies No Known Allergies Allergy (Verified 02/13/25 09:19) Assessment & Plan Assessment & Plan (1) S/P cervical spinal fusion: Code(s): Z98.1 - Arthrodesis status Category: Surgical Plan Lopez is a pleasant 64-year-old male who comes in today for his 2nd postoperative visit after having C3-[address] Davidson. He is a gentleman known to Dr. Davidson from anterior cervical fusion C4-5, C5-6 in 2017. He presented to clinic initially before surgery with rapidly progressing myelopathic symptoms, including inability to ambulate without using a walker, numbness in his hands, and weakness in his legs. His preoperative imaging showed severe spinal canal stenosis at C3-4. Therefore, he underwent a C3-4 ACDF. Unfortunately, since his surgery he has reported fairly consistent posterior neck pain. It has not let up in severity since his last visit. He does report some increased sensation of his bilateral hands, but feels his other preoperative symptoms have remained the same. We did discuss the goals of surgery in the context of cervical myelopathy, where we are primarily attempting to prevent worsening of symptom progression. In addition to his neck pain he states he feels a cracking/popping sensation and occasionally will audibly hear correcting/popping when turning his neck to the left or to the right. I reviewed his x-ray images taken during this visit which shows stable placement of his surgical construct. I would like to send him for a STAT CT of the cervical spine to ensure there is no hardware complication that we cannot see. If CT scan imaging as unremarkable I will consider sending the patient for an MRI of the cervical spine to ensure there is no continued cord compression in the context of preoperative cervical myelopathy. Stuart Davidson MD,PhD [facility] Coding Level of Care Code Global (27927) Diagnoses S/P cervical spinal fusion Z98.1
--- OUTSIDE RECORDS SUMMARY | 2025-04-03 11:19 | XMS_ITS | Encounter Summary ---
Author Organization [facility] Address [address] [place] [address] Care Team Providers Care Newspaper Delivery Driver Name Role Phone Jenn Hu MD Primary Care Provider [phone] Encounter Details Date Type Department Care Team (Late st Contact Info) Description 02/10/2025 Lab Requisition [facility] - Main Lab 299 [facility] [place] [address] Jenn Hu MD [address] [place] [address] Urinary tract infection, site not specified Social [...] CBC auto differential (02/10/2025 6:59 AM EDT) [facility] WBC 11.7(H) 4.8 - 10.8 K/[facility] LAB HEMETOLOGY METHOD 02/10/2025 10:44 AM EDT [facility] RBC 3.40(L) 4.50 - 5.50 M/mcL LAB HEMETOLOGY METHOD 02/10/2025 10:[address] [facility] Hemoglobin 11.3(L) 13.5 - 17.5 g/dL LAB HEMETOLOGY METHOD 02/10/2025 10:[address] [facility] Hematocrit 33.3(L) 42.0 - 54.0 % LAB HEMETOLOGY METHOD 02/10/2025 10:[address] [facility] MCV 97.4 79.0 - 98.0 FL LAB HEMETOLOGY METHOD 02/10/2025 10:[address] [facility] MCH 33.0(H) 27.0 - 32.0 pcg LAB HEMETOLOGY METHOD 02/10/2025 10:[address] [facility] MCHC 33.9 32.0 - 37.0 g/dL LAB HEMETOLOGY METHOD 02/10/2025 10:[address] [facility] RDW 11.6 11.0 - 15.0 % LAB HEMETOLOGY METHOD 02/10/2025 10:[address] [facility] Platelets 312 130 - 400 K/mcL LAB HEMETOLOGY METHOD 02/10/2025 10:[address] [facility] MPV 10.1 7.0 - 11.0 FL LAB HEMETOLOGY METHOD 02/10/2025 10:[address] [facility] NRBC 0.0 <1.0 % LAB HEMETOLOGY METHOD 02/10/2025 10:[address] [facility] NRBC Absolute 0.00 <0.10 K/mcL LAB HEMETOLOGY METHOD 02/10/2025 10:[address] [facility] Neutrophils Relative 72.4 % LAB HEMETOLOGY METHOD 02/10/2025 10:[address] [facility] Lymphocytes Relative 15.3 % LAB HEMETOLOGY METHOD 02/10/2025 10:[address] [facility] Monocytes Relative 7.8 % LAB HEMETOLOGY METHOD 02/10/2025 10:[address] [facility] Eosinophils Relative 2.7 % LAB HEMETOLOGY METHOD 02/10/2025 10:[address] [facility] Basophils Relative 0.3 % LAB HEMETOLOGY METHOD 02/10/2025 10:[address] [facility] Immature Granulocytes Relative 1.5 % LAB HEMETOLOGY METHOD 02/10/2025 10:[address] [facility] Neutrophils Absolute 8.46(H) 1.50 - 7.00 K/mcL LAB HEMETOLOGY METHOD 02/10/2025 10:[address] [facility] Lymphocytes Absolute 1.79 1.00 - 5.00 K/mcL LAB HEMETOLOGY METHOD 02/10/2025 10:[address] [facility] Monocytes Absolute 0.91 0.20 - 1.00 K/mcL LAB HEMETOLOGY METHOD 02/10/2025 10:[address] [facility] Eosinophils Absolute 0.32 0.00 - 0.50 K/mcL LAB HEMETOLOGY METHOD 02/10/2025 10:[address] [facility] Basophils Absolute 0.04 0.00 - 0.20 K/mcL LAB HEMETOLOGY METHOD 02/10/2025 10:[address] [facility] Immature Granulocytes Absolute 0.18(H) 0.00 - 0.03 K/mcL LAB HEMETOLOGY METHOD 02/10/2025 10:[address] [facility] Blood Venous blood specimen / Unknown Venipuncture / Unknown 02/10/2025 6:59 AM EDT 02/10/2025 9:24 AM EDT us Fahim A Mayte MD LAB BLOOD ORDERABLES Final Resul t Performing Organization Address City/[facility]/ZIP Co de Phone Number [facility] [address] [place] [address], [place] [phone] * Vitamin B12 and folate (02/10/2025 6:59 AM EDT) Pathologist [facility] Vitamin B-12 311 250 - 900 pcg/mL LAB CHEMISTRY METHOD 02/10/2025 11:40 AM EDT [facility] Folate 2.9 2.8 - 17.0 ng/ml LAB CHEMISTRY METHOD 02/10/2025 11:40 AM EDT [facility] Blood Venous blood specimen / Unknown Venipuncture / Unknown 02/10/2025 6:59 AM EDT 02/10/2025 9:24 AM EDT us Jenn Hu MD LAB BLOOD ORDERABLES Final Resul t Performing Organization Address [facility] Co de Phone Number [facility] [address] [place] [address], [place] [phone] * Thyroid stimulating hormone (02/10/2025 6:59 AM EDT) [facility] TSH 0.71 0.40 - 4.00 mcIU/mL LAB CHEMISTRY METHOD 02/10/2025 12:07 PM EDT [facility] Blood Venous blood specimen / Unknown Venipuncture / Unknown 02/10/2025 6:59 AM EDT 02/10/2025 9:24 AM EDT us Jenn Hu MD LAB BLOOD ORDERABLES Final Resul t Performing Organization Address City/[facility]/ZIP Co de Phone Number [facility] [address] [place] [address], [place] [phone] * (ABNORMAL) Basic metabolic panel (02/10/2025 6:59 AM EDT) Sodium 139 133 - 145 mmol/L LAB CHEMISTRY METHOD 02/10/2025 11:[address] [facility] Potassium 3.6 3.5 - 5.5 mmol/L LAB CHEMISTRY METHOD 02/10/2025 11:[address] [facility] Chloride 106 96 - 110 mmol/L LAB CHEMISTRY METHOD 02/10/2025 11:[address] [facility] CO2 26 21 - 32 mmol/L LAB CHEMISTRY METHOD 02/10/2025 11:[address] [facility] Anion Gap 7 3 - 11 LAB CHEMISTRY METHOD 02/10/2025 11:[address] [facility] Glucose 84 70 - 100 mg/dL LAB CHEMISTRY METHOD 02/10/2025 11:[address] [facility] BUN 6 5 - 25 mg/dL LAB CHEMISTRY METHOD 02/10/2025 11:[address] [facility] Creatinine 0.61(L) 0.70 - 1.30 mg/dL LAB CHEMISTRY METHOD 02/10/2025 11:[address] [facility] eGFR 108 >=60 mL/min/1. 73m2 LAB CHEMISTRY METHOD 02/10/2025 11:[address] [facility] Comment:Calculation based on the Chronic Kidney Disease Epidemiology Collaboration (CKD-EPI) equation refit without adjustment for race. BUN/Creatinine Ratio 9.8 LAB CHEMISTRY METHOD 02/10/2025 11:[address] [facility] Calcium 9.0 8.5 - 10.5 mg/dL LAB CHEMISTRY METHOD 02/10/2025 11:[address] [facility] Blood Venous blood specimen / Unknown Venipuncture / Unknown 02/10/2025 6:59 AM EDT 02/10/2025 9:24 AM EDT Jenn Hu MD LAB BLOOD ORDERABLES Final Resul t [facility] LAB [address] [place] [address], documented in this encounter Visit Diagnoses Diagnosis Urinary tract infection, site not specified documented in this encounter Care Teams Newspaper Delivery Driver Relationship Specialty Start Date End Date Jenn Hu MD [address] [place] [address] [address] [place] [address] PCP - General Geriatric Medicine 02/01/25 documented as of this encounter
--- OUTSIDE RECORDS SUMMARY | 2025-04-03 11:19 | XMS_ITS | Encounter Summary ---
Author Organization [facility] Address [address] [place] [address] Care Team Providers Care Piling Setter Name Role Phone Brain Cyr DO Primary Care Provider [phone] Norma Rogel RN Unavailable Unavailable Encounter Details Date Type Department Care Team (Late st Contact Info) Description 03/28/2025 Scanned Document [facility] at Home [address] [facility] [address] [place] [address] Provider, Generic Social History Tobacco [...] Recorded In the past 12 months has [employer], oil, or water [employer] threatened to shut off services in your [...] any time in the [facility] were you [facility] or living in [...] visit [facility] [address] [phone] 04/18/2025 3:00 PM EST Procedure visit [facility] [address] [phone] 05/17/2025 9:45 AM EST Office Visit [facility] [address] [place] [phone] Esthela Kaye, HOT PATCHER [address] [address] documented as of this encounter Visit Diagnoses Not on filedocumented in this encounter Care Teams Piling Setter Relationship Specialty Start Date End Date Brain Cyr DO PCP - General 07/14/18 Norma Rogel, LONI [place] Registered Nurse 07/14/18 documented as of this encounter
--- OUTSIDE RECORDS SUMMARY | 2025-04-03 11:19 | XMS_ITS | Encounter Summary ---
Author Organization [facility] Address [address] [place] [address] Care Team Providers Care Cookee Name Role Phone Jenn Hu MD Primary Care Provider [phone] Encounter Details Date Type Department Care Team (Late st Contact Info) Description 02/12/2025 Lab Requisition [facility] - Main Lab 299 [facility] [place] [address] Jenn Hu MD [address] [place] [address] Vitamin D deficiency, unspecified; Cervicalgia; Weakness; Essential [...] LAB CHEMISTRY METHOD 02/13/2025 2:24 PM EDT [facility] Potassium 3.2(L) 3.5 - 5.5 mmol/L LAB CHEMISTRY METHOD 02/13/2025 2:24 PM EDT [facility] Chloride 109 96 - 110 mmol/L LAB CHEMISTRY METHOD 02/13/2025 2:24 PM T [facility] CO2 24 21 - 32 mmol/L LAB CHEMISTRY METHOD 02/13/2025 2:24 PM EDT [facility] Anion Gap 9 3 - 11 LAB CHEMISTRY METHOD 02/13/2025 2:24 PM EDT [facility] Glucose 68(L) 70 - 100 mg/dL LAB CHEMISTRY METHOD 02/13/2025 2:24 PM EDT [facility] BUN 5 5 - 25 mg/dL LAB CHEMISTRY METHOD 02/13/2025 2:24 PM EDT [facility] Creatinine 0.54(L) 0.70 - 1.30 mg/dL LAB CHEMISTRY METHOD 02/13/2025 2:24 PM EDT [facility] eGFR 112 >=60 mL/min/1. 73m2 LAB CHEMISTRY METHOD 02/13/2025 2:24 PM EDT [facility] Comment:Calculation based on the Chronic Kidney Disease Epidemiology Collaboration (CKD-EPI) equation refit without adjustment for race. BUN/Creatinine Ratio 9.3 LAB CHEMISTRY METHOD 02/13/2025 2:24 PM EDT [facility] Calcium 8.9 8.5 - 10.5 mg/dL LAB CHEMISTRY METHOD 02/13/2025 2:24 PM T [facility] Blood Venous blood specimen / Unknown Venipuncture / Unknown 02/13/2025 5:40 AM EDT 02/13/2025 10:40 AM EDT us Jenn Hu MD LAB BLOOD ORDERABLES Final Resul t [facility] [address] [place] [address], * (ABNORMAL) Complete blood count (02/13/2025 5:40 AM EDT) WBC 8.8 4.8 - 10.8 K/mcL LAB HEMETOLOGY METHOD 02/13/2025 11:08 AM EDT [facility] RBC 3.30(L) 4.50 - 5.50 M/mcL LAB HEMETOLOGY METHOD 02/13/2025 11:08 AM [facility] Hemoglobin 11.2(L) 13.5 - 17.5 g/dL LAB HEMETOLOGY METHOD 02/13/2025 11:08 AM [facility] Hematocrit 32.1(L) 42.0 - 54.0 % LAB HEMETOLOGY METHOD 02/13/2025 11:08 AM [facility] MCV 96.1 79.0 - 98.0 FL LAB HEMETOLOGY METHOD 02/13/2025 11:08 AM [facility] MCH 33.5(H) 27.0 - 32.0 pcg LAB HEMETOLOGY METHOD 02/13/2025 11:08 AM [facility] MCHC 34.9 32.0 - 37.0 g/dL LAB HEMETOLOGY METHOD 02/13/2025 11:08 AM [facility] RDW 11.6 11.0 - 15.0 % LAB HEMETOLOGY METHOD 02/13/2025 11:08 AM [facility] Platelets 337 130 - 400 K/mcL LAB HEMETOLOGY METHOD 02/13/2025 11:08 AM [facility] MPV 9.8 7.0 - 11.0 FL LAB HEMETOLOGY METHOD 02/13/2025 11:08 AM [facility] NRBC 0.0 <1.0 % LAB HEMETOLOGY METHOD 02/13/2025 11:08 AM [facility] NRBC Absolute 0.00 <0.10 K/mcL LAB HEMETOLOGY METHOD 02/13/2025 11:08 AM [facility] Blood Venous blood specimen / Unknown Venipuncture / Unknown 02/13/2025 5:40 AM EDT 02/13/2025 10:41 AM EDT Jenn Hu MD LAB BLOOD ORDERABLES Final Resul t [facility] [address] [place] [address], documented in this encounter Visit Diagnoses Diagnosis Vitamin D deficiency, unspecified Cervicalgia Weakness Other malaise and fatigue Essential (primary) hypertension Unspecified essential hypertension documented in this encounter Care Teams Cookee Relationship Specialty Start Date End Date Jenn Hu MD [address] [place] [address] [address] [place] [address] PCP - General Geriatric Medicine 02/01/25 documented as of this encounter
--- OUTSIDE RECORDS SUMMARY | 2025-04-03 11:19 | XMS_ITS | Encounter Summary ---
Author Organization [facility] Address [address] [place] [address] Care Team Providers Care Estimator Lumber Name Role Phone Brain Cyr DO Primary Care Provider Norma Rogel RN Unavailable Unavailable Encounter Details Date Type Department Care Team (Late st Contact Info) Description 03/29/2025 Scanned Document [facility] at Home [address] [facility] [address] [place] [address] Provider, Generic Social History Tobacco [...] Recorded In the past 12 months has [employer], [employer], oil, or water [employer] threatened [...] any time in the [facility], were you homeless or living in [...] Procedure visit [facility] [address] [phone] 04/18/2025 3:00 PM EST Procedure visit [facility] [address] [phone] 05/17/2025 9:45 AM EST Office Visit [facility] [address] [place] [phone] Esthela Kaye, USED CAR MAKE READY MECHANIC [address] [address] documented as of this encounter Visit Diagnoses Not on filedocumented in this encounter Care Teams Estimator Lumber Relationship Specialty Start Date End Date Brain Cyr DO PCP - General 07/14/18 Norma Rogel, LONI [place] Registered Nurse 07/14/18 documented as of this encounter
--- OUTSIDE RECORDS SUMMARY | 2025-04-03 11:19 | XMS_ITS | Encounter Summary ---
Author Organization [facility] Address [address] [place] [address] Care Team Providers Care Special Distribution Clerk Name Role Phone Brain Cyr DO Primary Care Provider Norma Rogel RN Unavailable Unavailable Encounter Details Date Type Department Care Team (Late st Contact Info) Description 03/31/2025 Scanned Document [facility] at Home [address] [facility] [address] [place] [address] Provider, Generic Social History Tobacco Use Types Packs/Day Years Used Date Smoking Tobacco: Former Cigarettes 1 10 0 07/14/1989 - 07/14/1999 Smokeless Tobacco: Never Alcohol Use Standard Drinks/Week Comments Yes 14 (1 standard drink = 0.6 oz pure alcohol) 2 vy, 2 shots liquor nightly, will stop pre op . Last drink 6 days ago. [facility] Utilities Answer Date Recorded In the past 12 months has [employer], [employer], oil, or water [employer] threatened to shut off services in your [...] were you homeless or living in a detention (including now)? No 01/10/2025 Sex and Gender [...] Procedure visit [facility] [address] [phone] 04/18/2025 3:00 PM EST Procedure visit [facility] [address] [address] 05/17/2025 9:45 AM EST Office Visit [facility] [address] [place] [phone] Esthela Kaye, ACCIDENT EXAMINER [address] [address] documented as of this encounter Visit Diagnoses Not on filedocumented in this encounter Care Teams Special Distribution Clerk Relationship Specialty Start Date End Date Brain Cyr DO PCP - General 07/14/18 Norma Rogel, LONI [place] Registered Nurse 07/14/18 documented as of this encounter
--- OUTSIDE RECORDS SUMMARY | 2025-04-03 11:19 | XMS_ITS | Encounter Summary ---
Author Organization [facility] Address [address] [place] [address] Care Team Providers Care Product Safety Coordinator Name Role Phone Brain Cyr DO Primary Care Provider [phone] Norma Rogel RN Unavailable Unavailable Encounter Details Date Type Department Care Team (Late st Contact Info) Description 05/11/2023 Scanned Document [facility] [place] [facility] [address] [place] [address] Orthopedic Surgery, Scan Social History [...] Procedure visit [facility] [address] [address] 04/18/2025 3:00 PM EST Procedure visit [facility] [address] [address] 05/17/2025 9:45 AM EST Office Visit [facility] [address] [facility] [address] [place] [address] Esthela Kaye, JUNIOR BOOKKEEPER 326 [facility] [address] [place] [address] documented as of this encounter Procedures Procedure Name Priority Date/Time Associated Diagnosis Comments BOOKING SHEETS-SCAN 05/11/2023 documented in this encounter Results * BOOKING SHEETS-SCAN (05/11/2023) us Scan Orthopedic Surgery HX AMB PROCEDURES Final Result documented in this encounter Visit Diagnoses Not on filedocumented in this encounter Care Teams Product Safety Coordinator Relationship Specialty Start Date End Date Brain Cyr DO PCP - General 07/14/18 Norma Rogel, LONI CT Registered Nurse 07/14/18 documented as of this encounter
--- OUTSIDE RECORDS SUMMARY | 2025-04-03 11:19 | XMS_ITS | Encounter Summary ---
Author Organization [facility] Address [address] [place] [address] Care Team Providers Care Laser Specialist Name Role Phone Jenn Hu MD Primary Care Provider [phone] Encounter Details Date Type Department Care Team (Late st Contact Info) Description 02/04/2025 Lab Requisition [facility] - Main Lab [address] [facility] [place] [address] Jenn Hu MD [address] [place] [address] Chronic kidney disease, unspecified Social History Tobacco [...] 5:01 PM EDT Enid Hill RN * [place] Suicide Severity Rating Scale (Screener/Recent Self-Report) Question [...] LAB CHEMISTRY METHOD 02/04/2025 12:12 PM T [facility] Potassium 3.1(L) 3.5 - 5.5 mmol/L LAB CHEMISTRY METHOD 02/04/2025 12:12 PM T [facility] Chloride 99 96 - 110 mmol/L LAB CHEMISTRY METHOD 02/04/2025 12:12 PM [facility] CO2 23 21 - 32 mmol/L LAB CHEMISTRY METHOD 02/04/2025 12:12 PM [facility] Anion Gap 10 3 - 11 LAB CHEMISTRY METHOD 02/04/2025 12:12 PM [facility] Glucose 78 70 - 100 mg/dL LAB CHEMISTRY METHOD 02/04/2025 12:12 PM [facility] BUN 66(H) 5 - 25 mg/dL LAB CHEMISTRY METHOD 02/04/2025 12:12 PM [facility] Creatinine 5.04(H) 0.70 - 1.30 mg/dL LAB CHEMISTRY METHOD 02/04/2025 12:12 PM [facility] eGFR 12(L) >=60 mL/min/1. 73m2 LAB CHEMISTRY METHOD 02/04/2025 12:12 PM [facility] Comment:Calculation based on the Chronic Kidney Disease Epidemiology Collaboration (CKD-EPI) equation refit without adjustment for race. BUN/Creatinine Ratio 13.1 LAB CHEMISTRY METHOD 02/04/2025 12:12 PM [facility] Calcium 8.9 8.5 - 10.5 mg/dL LAB CHEMISTRY METHOD 02/04/2025 12:12 PM [facility] Blood Venous blood specimen / Unknown Venipuncture / Unknown 02/04/2025 9:30 AM EDT 02/04/2025 11:17 AM EDT us Jenn Hu MD LAB BLOOD ORDERABLES Final Resul t [facility] [address] [place] [address], documented in this encounter Visit Diagnoses Diagnosis Chronic kidney disease, unspecified documented in this encounter Additional Health Concerns Infection Onset Date Last Indicated Resolved Time Respiratory Rule-Out 02/06/2025 02/07/2025 025 1:47 AM EDT COVID-19 Rule-Out 02/06/2025 02/07/2025 02/07/2025 1:47 AM EDT documented as of this encounter Care Teams Laser Specialist Relationship Specialty Start Date End Date Jenn Hu MD [address] [place] [address] [address] [place] [address] PCP - General Geriatric Medicine 02/01/25 documented as of this encounter
--- OUTSIDE RECORDS SUMMARY | 2025-04-03 11:19 | XMS_ITS | Encounter Summary ---
Author Organization [facility] Address [address] [place] [address] Care Team Providers Care Retirement Consultant Name Role Phone Jenn Hu MD Primary Care Provider [phone] Encounter Details Date Type Department Care Team (Late st Contact Info) Description 02/05/2025 Lab Requisition [facility] - Main Lab [address] [facility] [place] [address] Jenn Hu MD [address] [place] [address] Chronic kidney disease, unspecified Social History Tobacco [...] 5:01 PM EDT Enid Hill RN * [place] Suicide Severity Rating Scale (Screener/Recent Self-Report) Question [...] documented as of this encounter Care Teams Retirement Consultant Relationship Specialty Start Date End Date Jenn Hu MD [address] [place] [address] [address] [place] [address] PCP - General Geriatric Medicine 02/01/25 documented as of this encounter
--- OUTSIDE RECORDS SUMMARY | 2025-04-03 11:20 | XMS_ITS | Encounter Summary ---
Author Organization [facility] Address [address] [place] [address] Care Team Providers Care Bridges And Buildings Supervisor Name Role Phone Brain Cyr DO Primary Care Provider [phone] Norma Rogel RN Unavailable Unavailable Reason for Visit * Reason Comments Medication Refill Encounter Details Date Type Department Care Team (Late st Contact Info) Description 03/29/2024 [facility]ill [facility] [address] [phone] Jed Pinon MD [address] [address] Closed fracture of right ankle with routine [...] Procedure visit [facility] [address] [address] 04/18/2025 3:00 PM EST Procedure visit [facility] [address] [address] 05/17/2025 9:45 AM EST Office Visit [facility] [address] [address] Esthela Kaye, ROAD DESIGN DRAFTSPERSON [address] [address] documented as of this encounter Visit Diagnoses Diagnosis Closed fracture of right ankle with routine healing, subsequent encounter documented in this encounter Care Teams Bridges And Buildings Supervisor Relationship Specialty Start Date End Date Brain Cyr DO PCP - General 07/14/18 Norma Rogel, LONI CT Registered Nurse 07/14/18 documented as of this encounter
--- OUTSIDE RECORDS SUMMARY | 2025-04-03 11:20 | XMS_ITS | Clinical Summary ---
Author Organization [facility] Address [address] [place] [address] Care Team Providers Care Phosphorus Processing Supervisor Name Role Phone Brain Cyr DO Primary Care Provider [phone] Norma Rogel RN Unavailable Unavailable Allergies No [...] Encounters Date Type Department Care Team Description 03/31/2025 Scanned Document [facility] [address] [address] Provider, Generic 03/29/2025 Scanned Document [facility] [address] [place] [address] Provider, Generic 03/28/2025 Scanned Document [facility] [address] [place] [address] Provider, Generic 03/24/2025 2:30 PM EDT Procedure visit [facility] [address] [place] [phone] Venu Mantilla RN Encounter for Phoenix catheter removal (Primary Dx); Urinary retention 03/24/2025 8:00 AM EDT Procedure visit [facility] [address] [place] [phone] Venu Mantilla RN Encounter for Phoenix catheter removal (Primary Dx) 03/24/2025 Travel 03/23/2025 Scanned Document [facility] [address] [place] [phone] Provider, Generic 03/22/2025 Scanned Document [facility] [address] [place] [address] [phone] Provider, Generic 03/21/2025 Scanned Document [facility] [address] [place] [address] Provider, Generic 03/17/2025 Scanned Document [facility] [address] [place] [address] Provider, Generic 03/15/2025 Scanned Document [facility] [address] [place] [address] Provider, Generic 03/14/2025 Scanned Document [facility] [address] [place] [address] Provider, Generic 03/13/2025 Scanned Document [facility] [address] [place] [address] Provider, Generic 03/11/2025 Scanned Document [facility] [address] [place] [address] Provider, Generic 03/10/2025 Scanned Document [facility] [address] [place] [address] Provider, Generic 03/10/2025 Telephone [facility] [address] [place] [phone] Adis Daniels MD 03/08/2025 Scanned Document [facility] [address] [facility] [address] [place] [address], [place] [address] Provider, Generic 03/07/2025 Scanned Document [facility] [address] [place] [address] Provider, Generic 03/06/2025 Scanned Document [facility] [address] [place] [address] Provider, Generic 03/04/2025 Scanned Document [facility] [address] [place] [address] Provider, Generic 03/03/2025 Scanned Document [facility] [address] [place] [address] Provider, Generic 03/02/2025 4:00 PM EDT Procedure visit [facility] [address] [place] [phone] Keith Kumar LPN Benign prostatic hyperplasia with urinary retention (Primary Dx) 03/02/2025 10:00 AM EDT Procedure visit [facility] [address] [place] [phone] Keith Kumar LPN Encounter for Phoenix catheter removal (Primary Dx) 03/02/2025 Scanned Document [facility] [address] [place] [address] Provider, Generic 03/02/2025 Telephone [facility] [address] [place] [phone] Imani Pinzon PA-C 03/02/2025 Travel 03/01/2025 Telephone [facility] [address] [place] [phone] Esthela Kaye APRN 02/28/2025 Scanned Document [facility] [address] [facility] [address] [place] [address], [place] [address] Provider, Generic 02/27/2025 Scanned Document [facility] [address] [place] [address] Provider, Generic 02/21/2025 Scanned Document [facility] [address] [place] [address] Provider, Generic 02/19/2025 Scanned Document [facility] [address] [place] [address] Provider, Generic 02/18/2025 Scanned Document [facility] [address] [place] [address] Provider, Generic 02/17/2025 Scanned Document [facility] [address] [place] [address] Provider, Generic 02/16/2025 1:30 PM EDT Clinical Support [facility] [address] [place] [phone] Rocio Amaral RN Benign prostatic hyperplasia with urinary retention (Primary Dx) 02/16/2025 Orders Only [facility] [address] [place] [phone] Esthela Kaye APRN Benign prostatic hyperplasia with urinary retention 02/16/2025 Scanned Document [facility] [address] [place] [address], [place] [address] Provider, Generic 02/15/2025 7:30 AM EDT Office Visit [facility] [address] [place] [phone] Esthela Kaye APRN Benign prostatic hyperplasia with urinary retention (Primary Dx); Indwelling Phoenix catheter present 02/15/2025 Telephone [facility] 330 [facility] [address] [place] [address] Esthela Kaye APRN 02/15/2025 Travel 01/09/2025 1:54 PM EDT - 01/10/2025 4:58 PM EDT Hospital Encounter [facility] [address] [place] [address] Alex Brar MD Lu, MD Lupillo Cervical spinal stenosis (Primary Dx); Anxiety; Secondary [...] op . Last drink 6 days ago. [facility] Utilities Answer Date Recorded In the past 12 months has [facility], [facility], or water [employer] threatened to shut off services in your [...] Upcoming Encounters Date Type Department Care Team ([facility] st Contact Info) Description 04/18/2025 9:00 AM EST Procedure visit [facility] [address] [phone] 04/18/2025 3:00 PM EST Procedure visit [facility] [address] [address] 05/17/2025 9:45 AM EST Office Visit [facility] [address] [address] Esthela Kaye, CHEMISTRY QUALITY CONTROL ANALYST [address] [address] Health Maintenance Due Date Last Done Comments [...] Additional history exists COVID-19 Vaccine ( - 2023- season) 2025 Colonoscopy 11/25/2033 11/26/2023 Hepatitis B Vaccines Aged Out No long er eligible based on patient's age to complete this topic Medical Devices Implanted Type Area Director [employer] Device Identifier Shelf Expiration Date Model / Serial / Lot [id number] [employer] R 40gm Grn - [id number] Implanted:Qty : 2 on 05/12/2019 by Reagan Deleon MD at [facility] Cement Right: Knee [employer] 07/29/2022 [id number] / / [id number] Shell Acetabular 54mm Hip Prim Ch Trlg Sterl - [id number] Implanted:Qty : 1 on 08/18/2018 by Reagan Deleon MD at [facility] Joint Prosthesis Right: Hip [employer] [id number] 05/31/2028 [id number] / / [id number] Liner Acetabular Trlg Std Neutral 6.3mm 50/52/54mm 32mm - [id number] Implanted:Qty : 1 on 08/18/2018 by Reagan Deleon MD at [facility] Joint Prosthesis Right: Hip [employer] [id number] 02/28/2023 [id number] / / [id number] Stem Femoral 124mm 12.5mm Prim Zm M/L Taper Tiv Por /14 50 - [id number] Implanted:Qty : 1 on 08/18/2018 by Reagan Deleon MD at [facility] Joint Prosthesis Right: Hip [employer] [id number] 02/29/2028 [id number] / / [id number] Head Femoral 0mm /14 Taper 32mm Hip Blx D Trlg It Contin - [id number] Implanted:Qty : 1 on 08/18/2018 by Reagan Deleon MD at [facility] Joint Prosthesis Right: Hip [employer] [id number] 02/29/2028 [id number] / / [id number] Restrictor Bncmnt 25mm Ace 16-21mm Hip Femoral Plug Sterl - [id number] Implanted:Qty : 1 on 05/12/2019 by Reagan Deleon MD at [facility] Joint Prosthesis Right: Knee [employer] [id number] 03/08/2029 [id number] / / [id number] Component Femoral 8 Std Knee Right Crcte Rtn Cmnt Persona - [id number] Implanted:Qty : 1 on 05/12/2019 by Reagan Dleeon MD at [facility] Joint Prosthesis Right: Knee [employer] [id number] 02/28/2029 [id number] / / [id number] Component Patellar 35mm Persona Alply Knee Lf - [id number] Implanted:Qty : 1 on 05/12/2019 by Reagan Deleon MD at [facility] Joint Prosthesis Right: Knee [employer] [id number] 10/29/2026 [id number] / / [id number] Baseplate Tibial Persona Ntr Tibia 5d F Knee Right Stem - [id number] Implanted:Qty : 1 on 05/12/2019 by Reagan Deleon MD at [facility] Joint Prosthesis Right: Knee [employer] [id number] 11/28/2028 [id number] / / [id number] Insert Articular 3-11 E-F 11mm Knee Right Crcte Rtn Polyethe - [id number] Implanted:Qty : 1 on 05/12/2019 by Reagan Deleon MD at [facility] Joint Prosthesis Right: Knee [employer] [id number] 11/28/2026 [id number] / / [id number] Screw Bone Acetabular Jarvis Trlg 40mm 6.5mm Slftp Sterl - [id number] Implanted:Qty : 1 on 08/18/2018 by Reagan Deleon MD at [facility] Screw Right: Hip [employer] [id number] 05/31/2028 [id number] / / [id number] Procedures Procedure Name Priority Date/Time Associated Diagnosis [...] of3 resultswithin the time period is included. [facility] Bladder Scan, Urine Volume 906 cc Urine 03/24/2025 2:41 PM EDT Esthela Kaye APRN POCT ORDERABLES - IMAGING Final Result * (ABNORMAL) Complete Blood Count, with Differential (02/27/2025 10:25 AM EDT) Only the most recent of2 resultswithin the time period is included. [facility] White Blood Cell Count 8.8 3.8 - 10.8 Thousand/ uL [facility] Red Blood Cell Count 4.07(L) 4.20 - 5.80 Million/u L [facility] Hemoglobin 13.1(L) 13.2 - 17.1 g/dL [facility] Hematocrit 39.8 38.5 - 50.0 % [facility] MCV 97.8 80.0 - 100.0 fL [facility] MCH 32.2 27.0 - 33.0 pg [facility] MCHC 32.9 32.0 - 36.0 g/dL [facility] Comment: For adults, a slight decrease in the calculated MCHC value (in the range of 30 to 32 g/dL) is most likely not clinically significant; however, it should be interpreted with caution in correlation with other red cell parameters and the patient's clinical condition. RDW 11.9 11.0 - 15.0 % [facility] Platelet Count 292 140 - 400 Thousand/ uL [facility] MPV 9.9 7.5 - 12.5 fL [facility] Abs Neutrophils Auto 5,852 1,500 - 7,800 cells/uL [facility] Abs Lymphocytes Auto 1,874 850 - 3,900 cells/uL [facility] Abs Monocytes Auto 625 200 - 950 cells/uL [facility] Abs Eosinophils Auto 405 15 - 500 cells/uL [facility] Abs Basophils Auto 44 0 - 200 cells/uL [facility] Neutrophils Auto 66.5 % Que [facility]aboration Lymphocytes Auto 21.3 % Que [facility] Monocytes Auto 7.1 % [facility] Eosinophils Auto 4.6 % Que code[facility]laboration Basophils Auto 0.5 % [facility] Blood Blood specimen / Unknown 02/27/2025 10:25 AM EDT 02/27/2025 10:25 AM EDT Narrative [facility] - 02/28/2025 11:10 AM EDT FASTING:NO FASTING: NO Esthela Kaye APRN LAB BLOOD ORDERABLES Final Result [facility] [address] [place] [phone] * (ABNORMAL) Basic Metabolic Panel (02/27/2025 10:25 AM EDT) Glucose 145(H) 65 - 139 mg/dL [facility] Comment: Non-fasting reference interval Blood Urea Nitrogen (BUN) 9 7 - 25 mg/dL [facility] Creatinine 0.73 0.70 - 1.35 mg/dL [facility] Creatinine w/ eGFR 102 > OR = 60 mL/min/1. 73m2 [facility] BUN/Creatinine Ratio SEE NOTE: (calc) [facility] Comment: Not Reported: BUN and Creatinine are within reference range. Sodium 141 135 - 146 mmol/L [facility] Potassium 3.7 3.5 - 5.3 mmol/L [facility] Chloride 107 98 - 110 mmol/L [facility] CO2 27 20 - 32 mmol/L [facility] Calcium 9.4 8.6 - 10.3 mg/dL [facility] Blood Blood specimen / Unknown 02/27/2025 10:25 AM EDT 02/27/2025 10:25 AM EDT Narrative [facility] - 02/28/2025 11:10 AM EDT FASTING:NO FASTING: NO us Esthela Kaye CHEMISTRY QUALITY CONTROL ANALYST LAB BLOOD ORDERABLES Final Result [facility] [address] [place] [phone] * XR Cervical spine 2 or 3 [...] Critical finding has been communicated to Radiology [employer] for provider notification via the [employer] Application on 01/09/2025 8:57 PM, Message ID [id number]. Narrative 01/09/2025 8:57 PM EDT EXAM: MRI [...] Critical finding has been communicated to Radiology Final [employer] forprovider notification via the [employer] Actionable FindingsApplication on 01/09/2025 8:57 PM, Message ID [id number]. us Alex Brar MD IMG MRI ORDERABLES [...] appear normal. Lung apices are clear. Specific qolyg-iv-oxjuy: C2-C3: No spinal canal stenosis. Severe facet [...] appear normal. Lung apices are clear. Specific rihcv-pk-eghyu: C2-C3: No spinal canal stenosis. Severe facet [...] * Magnesium (01/09/2025 2:56 PM EDT) Pathologist [facility] Magnesium 2.0 1.6 - 2.7 mg/dL 01/09/2025 3:47 PM EDT [facility] Blood Blood specimen / Unknown 01/09/2025 2:56 PM EDT 01/09/2025 3:17 PM EDT us Izabella MARIEE LAB BLOOD ORDERABLES Final Result [address] [address], [address] [address] * (ABNORMAL) Comprehensive Metabolic Panel (01/09/2025 2:56 PM EDT) Glucose 235(H) 65 - 99 mg/dL 01/09/2025 3:47 PM [facility] Comment:Fasting: <100 mg/dL, Non-Fasting: <200 mg/dL (ADA 2005) Blood Urea Nitrogen (BUN) 17 8 - 21 mg/dL 01/09/2025 3:47 PM [facility] Creatinine 0.7 0.5 - 1.3 mg/dL 01/09/2025 3:47 PM [facility] eGFR >90 >59 01/09/2025 3:47 PM [facility] Comment:CKD-EPI (2020) in mL /min/1.73 sq meters. Sodium 144 136 - 145 mmol/L 01/09/2025 3:47 PM [facility] Potassium 3.7 3.4 - 5.3 mmol/L 01/09/2025 3:47 PM [facility] Chloride 104 98 - 107 mmol/L 01/09/2025 3:47 PM [facility] CO2 22 22 - 33 mmol/L 01/09/2025 3:47 PM [facility] Calcium 9.3 8.7 - 10.5 mg/dL 01/09/2025 3:47 PM [facility] Alkaline Phosphatase 87 45 - 128 U/L 01/09/2025 3:47 PM [facility] Aspartate Aminotrans (AST) 40 10 - 55 U/L 01/09/2025 3:47 PM [facility] Comment:Specimen hemolyzed. Results may be artifactually elevated. Alanine Aminotrans (ALT) 32 10 - 55 U/L 01/09/2025 3:47 PM [facility] Bilirubin, Total 0.5 0.2 - 1.0 mg/dL 01/09/2025 3:47 PM [facility] Protein, Total 7.0 6.3 - 8.3 g/dL 01/09/2025 3:47 PM [facility] Albumin 3.9 3.4 - 4.8 g/dL 01/09/2025 3:47 PM [facility] BUN/Creatinine Ratio 24 10.0 - 25.0 Ratio 01/09/2025 3:47 PM T [facility] Globulin 3.1 1.5 - 3.9 g/dL 01/09/2025 3:47 PM EDT [facility] Albumin/Globulin Ratio 1.3 Ratio 01/09/2025 3:47 PM EDT [facility] Anion Gap 18(H) 7 - 17 01/09/2025 3:47 PM EDT [facility] Blood Blood specimen / Unknown 01/09/2025 2:56 PM EDT 01/09/2025 3:17 PM EDT Izabella Bazzi NM LAB BLOOD ORDERABLES Final Result [facility] [address] [place] [address], [facility] [address] [place] [address] * Lyme IgG/IgM with Reflex to ISABELLE (01/09/2025 2:53 PM EDT) Lyme IgG/IgM Antibody Screen Negative Negative 01/11/2025 10:42 AM EDT [facility] Comment: No antibodies to Borrelia burgdorferi detected. Consider alternative diagnosis. If the patient presents with signs/symptoms consistent with Lyme disease (B. burgdorferi) for <30 days, consider collecting and testing a second sample two to four weeks later. Blood Blood specimen / Unknown 01/09/2025 2:53 PM EDT 01/09/2025 3:17 PM EDT Izabella Bazzi NM LAB BLOOD ORDERABLES Final Result [facility] [address] [place] [address], * HX GASTROENTEROLOGY COLONOSCOPY-SCAN (11/26/2023 11:14 AM EDT) Demetrius Gonzalez MD HX AMB PROCEDURES Final Resu lt from Last 3 Months or Most Recently Relevant to Health Maintenance Insurance [employer] INDIVIDUAL EXCHANGE PPO [employer] INDIVIDUAL EXCHANGE PPO [employer] INDIVIDUAL EXCHANGE PPO Advance Directives * Full [...] 3:19 PM 05/12/2019 9:17 AM Care Teams Phosphorus Processing Supervisor Relationship Specialty Start Date End Date Brain Cyr DO PCP - General 07/14/18 Norma Rogel, LONI CT Registered Nurse 07/14/18
--- OUTSIDE RECORDS SUMMARY | 2025-04-03 11:20 | XMS_ITS | Encounter Summary ---
Author Organization [facility] Address [address] [place] [address] Care Team Providers Care Cloth Shrinking Tester Name Role Phone Brain Cyr DO Primary Care Provider [phone] Norma Rogel RN Unavailable Unavailable Encounter Details Date Type Department Care Team (Late st Contact Info) Description 02/16/[address] [facility] at Home [address] [phone] Provider, Generic Social History Tobacco Use Types Packs/Day Years Used Date Smoking Tobacco: Former Cigarettes 1 10 0 07/14/1989 - 07/14/1999 Smokeless Tobacco: Never Alcohol Use Standard Drinks/Week Comments Yes 14 (1 standard drink = 0.6 oz pure alcohol) 2 vy, 2 shots liquor nightly, will stop pre op . Last drink 6 days ago. [facility] Utilities Answer Date Recorded In the past 12 months has [employer], [employer], oil, or water [employer] threatened to shut off services in your [...] in the past 12 m [facility], were you homeless or living [...] Procedure visit [facility] [address] [phone] 04/18/2025 3:00 PM EST Procedure visit [facility] [address] [phone] 05/17/2025 9:45 AM EST Office Visit [facility] [address] [place] [phone] Esthela Kaye, GUIDE PLANT [address] [address] documented as of this encounter Visit Diagnoses Not on filedocumented in this encounter Care Teams Cloth Shrinking Tester Relationship Specialty Start Date End Date Brain Cyr DO PCP - General 07/14/18 Norma Rogel, LONI [place] Registered Nurse 07/14/18 documented as of this encounter
--- OUTSIDE RECORDS SUMMARY | 2025-04-03 11:20 | XMS_ITS | Encounter Summary ---
Author Organization [facility] Address [address] [place] [address] Care Team Providers Care Veterinary Practitioner Name Role Phone Ger Brain Payan DO Primary Care Provider [phone] Norma Rogel RN Unavailable Unavailable Encounter Details Date Type Department Care Team (Late st Contact Info) Description 11/26/2023 Scanned Document [facility] [address] [phone] Demetrius Gonzalez MD [address] [facility] [address] [place] [address] Social History Tobacco Use Types Packs/Day Years [...] EST Procedure visit [facility] [address] [place] [phone] 04/18/2025 3:00 PM EST Procedure visit [facility] 330 [facility] [address] [place] [address] 05/17/2025 9:45 AM EST Office Visit [facility] 330 [facility] [address] [place] [address] Esthela Kaye, SHEET SEWER 326 [facility] [address] [place], [place] [phone] documented as of this encounter Procedures Procedure [...] on filedocumented in this encounter Care Teams Veterinary Practitioner Relationship Specialty Start Date End Date Brain Cyr DO PCP - General 07/14/18 Norma Rogel, LONI [place] Registered Nurse 07/14/18 documented as of this encounter
--- OUTSIDE RECORDS SUMMARY | 2025-04-03 11:20 | XMS_ITS | Encounter Summary ---
Author Organization [facility] Address [address] [place] [address] Care Team Providers Care Fork Truck Operator Name Role Phone Brain Cyr DO Primary Care Provider [phone] Norma Rogel RN Unavailable Unavailable Encounter Details Date Type Department Care Team (Late st Contact Info) Description 03/03/2025 Scanned Document [facility] at Home 1290 [facility] [address] [place] [address] Provider, Generic Social History Tobacco Use Types Packs/Day Years Used Date Smoking Tobacco: Former Cigarettes 1 10 0 07/14/1989 - 07/14/1999 Smokeless Tobacco: Never Alcohol Use Standard Drinks/Week Comments Yes 14 (1 standard drink = 0.6 oz pure alcohol) 2 vy, 2 shots liquor nightly, will stop pre op . Last drink 6 days ago. [facility] Utilities Answer Date Recorded In the past 12 months has [employer], [employer], oil, or water [employer] threatened to shut off services in your [...] any time in the past 12 m [facility], were you homeless or living in a penitentiary (including now)? No 01/10/2025 Sex and Gender [...] Procedure visit [facility] [address] [address] 04/18/2025 3:00 PM EST Procedure visit [facility] [address] [phone] 05/17/2025 9:45 AM EST Office Visit [facility] [address] [place] [phone] Esthela Kaye, BENEFIT SPECIALIST [address] [address] documented as of this encounter Visit Diagnoses Not on filedocumented in this encounter Care Teams Fork Truck Operator Relationship Specialty Start Date End Date Brain Cyr DO PCP - General 07/14/18 Norma Rogel, LONI [place] Registered Nurse 07/14/18 documented as of this encounter
--- OUTSIDE RECORDS SUMMARY | 2025-04-03 11:20 | XMS_ITS | Encounter Summary ---
Author Organization [facility] Address [address] [place] [address] Care Team Providers Care Baseball Hand Sewer Name Role Phone Joealejandra Brain Payan DO Primary Care Provider [phone] Norma Rogel RN Unavailable Unavailable Encounter Details Date Type Department Care Team (Late st Contact Info) Description 10/22/2023 [facility] [address] [phone] Jed Pinon MD [address] [address] Social History Tobacco Use Types Packs/Day Years [...] EST Procedure visit [facility] [address] [place] [address] [place] [phone] 04/18/2025 3:00 PM EST Procedure visit [facility] [address] [phone] 05/17/2025 9:45 AM EST Office Visit [facility] [address] [phone] Esthela Kaye, MANAGER PROCESS IMPROVEMENT [address] [phone] documented as of this encounter Visit Diagnoses Not on filedocumented in this encounter Care Teams Baseball Hand Sewer Relationship Specialty Start Date End Date Brain Cyr DO PCP - General 07/14/18 Norma Rogel, LONI [place] Registered Nurse 07/14/18 documented as of this encounter
--- OUTSIDE RECORDS SUMMARY | 2025-04-03 11:20 | XMS_ITS | Encounter Summary ---
Author Organization [facility] Address [address] [place] [address] Care Team Providers Care Senior Network Architect Name Role Phone Brain Cyr DO Primary Care Provider Norma Rogel RN Unavailable Unavailable Encounter Details Date Type Department Care Team (Late st Contact Info) Description 03/04/2025 Scanned Document [facility] at Home 1290 [facility] [address] [place] [address] Provider, Generic Social History Tobacco Use Types Packs/Day Years Used Date Smoking Tobacco: Former Cigarettes 1 10 0 07/14/1989 - 07/14/1999 Smokeless Tobacco: Never Alcohol Use Standard Drinks/Week Comments Yes 14 (1 standard drink = 0.6 oz pure alcohol) 2 vy, 2 shots liquor nightly, will stop pre op . Last drink 6 days ago. [facility] Utilities Answer Date Recorded In the past 12 months has [employer], [employer], oil, or water [employer] threatened to shut off services in your [...] in the past 12 m [facility], were you homeless or living in [...] Procedure visit [facility] [address] [phone] 04/18/2025 3:00 PM EST Procedure visit [facility] [address] [phone] 05/17/2025 9:45 AM EST Office Visit [facility] [address] [place] [phone] Esthela Kaye, PROCED TECH [address] [address] documented as of this encounter Visit Diagnoses Not on filedocumented in this encounter Care Teams Senior Network Architect Relationship Specialty Start Date End Date Brain Cyr DO PCP - General 07/14/18 Norma Rogel, LONI [place] Registered Nurse 07/14/18 documented as of this encounter
--- OUTSIDE RECORDS SUMMARY | 2025-04-03 11:20 | XMS_ITS | Clinical Summary ---
Author Organization [facility] Address [address] [place] [address] Phone Care Team Providers Care Grass Farmer Name Role Phone Jenn Hu MD Primary Care Provider [phone] Allergies No known active allergies Medications hydroCHLOROthiaz herlinda (MICROZIDE) 12.5 mg capsule Take 1 capsule (12.5 mg total) by mouth 1 (one) time each day. Active apixaban (ELIQUIS) 5 mg tabletIndication s:Deep vein thrombosis (DVT) of other vein of lower extremity, unspecified chronicity, unspecified laterality (CMS/[facility] V24, CMS/[facility] V28) Take 2 tablets (10 mg total) [...] Department Care Team Description 02/17/2025 Lab Requisition [facility] - Main Lab [address] [facility] [place] [address] Jenn Hu MD Vitamin D deficiency, unspecified; Cervicalgia; Weakness; Essential (primary) hypertension 02/12/2025 Lab Requisition [facility] Lab [address] [place] [phone] Jenn Hu MD Vitamin D deficiency, unspecified; Cervicalgia; Weakness; Essential (primary) hypertension 02/10/2025 Lab Requisition [facility] Lab [address] [place] [phone] Jenn Hu MD Urinary tract infection, site not specified 02/08/2025 Telephone [facility] Hematology Oncology [address] [place] [phone] Yon Delacruz MD 02/05/2025 Lab Requisition [facility] Lab [address] [place] [phone] Jenn Hu MD Chronic kidney disease, unspecified 02/04/2025 3:15 PM EDT - 02/09/2025 1:23 PM EDT Hospital Encounter [facility] Urology Unit [address] [place] [phone] Frances Edward MD Wyman, Tim, MD Ishtiaq, Rizwan, MD Alam, Aroosa, MD Nasser, Nada S, MD Kela, Kashyap Devendrabhai, MD Lower extremity edema (Primary Dx); Positive D dimer; Urinary retention; Deep vein thrombosis (DVT) of other vein of lower extremity, unspecified chronicity, unspecified laterality ([facility] V24, [facility] V28) Discharge Disposition: [facility] 02/04/2025 Lab Requisition [facility] Lab [address] [place] [phone] Jenn Hu MD Chronic kidney disease, unspecified 02/03/2025 Lab Requisition [facility] Lab [address] [place] [phone] Jenn Hu MD Vitamin D deficiency, unspecified; Cervicalgia; Weakness; Essential (primary) hypertension 02/01/2025 Lab Requisition [facility] - Main Lab [address] [facility] [place] [address] Jenn Hu MD Essential (primary) hypertension 01/28/2025 4:40 AM EDT - 01/31/2025 4:18 PM EDT Emergency [facility] Emergency [address] [place] [phone] Augustin Henriquez MD Muhoozi, Bannet, MD [place], [...] of4 resultswithin the time period is included. [facility] WBC 8.8 4.8 - 10.8 K/mcL LAB HEMETOLOGY METHOD 02/13/2025 11:08 AM EDT [facility] LAB RBC 3.30(L) 4.50 - 5.50 M/mcL LAB HEMETOLOGY METHOD 02/13/2025 11:08 AM EDT [facility] LAB Hemoglobin 11.2(L) 13.5 - 17.5 g/dL LAB HEMETOLOGY METHOD 02/13/2025 11:08 AM EDT [facility] LAB Hematocrit 32.1(L) 42.0 - 54.0 % LAB HEMETOLOGY METHOD 02/13/2025 11:08 AM EDT [facility] LAB MCV 96.1 79.0 - 98.0 FL LAB HEMETOLOGY METHOD 02/13/2025 11:08 AM EDT [facility] LAB MCH 33.5(H) 27.0 - 32.0 pcg LAB HEMETOLOGY METHOD 02/13/2025 11:08 AM EDT [facility] LAB MCHC 34.9 32.0 - 37.0 g/dL LAB HEMETOLOGY METHOD 02/13/2025 11:08 AM EDT [facility] LAB RDW 11.6 11.0 - 15.0 % LAB HEMETOLOGY METHOD 02/13/2025 11:08 AM EDT [facility] LAB Platelets 337 130 - 400 K/mcL LAB HEMETOLOGY METHOD 02/13/2025 11:08 AM EDT [facility] LAB MPV 9.8 7.0 - 11.0 FL LAB HEMETOLOGY METHOD 02/13/2025 11:08 AM EDT [facility] LAB NRBC 0.0 <1.0 % LAB HEMETOLOGY METHOD 02/13/2025 11:08 AM EDT [facility] LAB NRBC Absolute 0.00 <0.10 K/mcL LAB HEMETOLOGY METHOD [facility] Blood Venous blood specimen / Unknown Venipuncture / Unknown 02/13/2025 5:40 AM EDT 02/13/2025 10:41 AM EDT us Jenn Hu MD LAB BLOOD ORDERABLES Final Resul t [facility] LAB [address] [place] [address], * (ABNORMAL) Basic metabolic panel (02/13/2025 5:40 AM EDT) Only the most recent of6 resultswithin the time period is included. [facility] Sodium 142 133 - 145 mmol/L LAB CHEMISTRY METHOD 02/13/2025 2:24 PM [facility] Potassium 3.2(L) 3.5 - 5.5 mmol/L LAB CHEMISTRY METHOD 02/13/2025 2:24 PM [facility] LAB Chloride 109 96 - 110 mmol/L LAB CHEMISTRY METHOD 02/13/2025 2:24 PM [facility] LAB CO2 24 21 - 32 mmol/L LAB CHEMISTRY METHOD 02/13/2025 2:24 PM [facility] LAB Anion Gap 9 3 - 11 LAB CHEMISTRY METHOD 02/13/2025 2:24 PM [facility] Glucose 68(L) 70 - 100 mg/dL LAB CHEMISTRY METHOD 02/13/2025 2:24 PM [facility] BUN 5 5 - 25 mg/dL LAB CHEMISTRY METHOD 02/13/2025 2:24 PM [facility] LAB Creatinine 0.54(L) 0.70 - 1.30 mg/dL LAB CHEMISTRY METHOD 02/13/2025 2:24 PM [facility] LAB eGFR 112 >=60 mL/min/1. 73m2 LAB CHEMISTRY METHOD 02/13/2025 2:24 PM [facility] LAB Comment:Calculation based on the Chronic Kidney Disease Epidemiology Collaboration (CKD-EPI) equation refit without adjustment for race. BUN/Creatinine Ratio 9.3 LAB CHEMISTRY METHOD 02/13/2025 2:24 PM [facility] LAB Calcium 8.9 8.5 - 10.5 mg/dL LAB CHEMISTRY METHOD 02/13/2025 2:24 PM [facility] LAB Blood Venous blood specimen / Unknown Venipuncture / Unknown 02/13/2025 5:40 AM EDT 02/13/2025 10:40 AM EDT Jenn Hu MD LAB BLOOD ORDERABLES Final Resul t [facility] [address] [place] [address], [place] [phone] * Vitamin B12 and folate (02/10/2025 6:59 AM EDT) [facility] Vitamin B-12 311 250 - 900 pcg/mL [...] ORDERABLES Final Resul t Performing Organization Address [facility]/ZIP Co de Phone Number [facility] [address] [place] [address], [place] [phone] * (ABNORMAL) CBC auto differential (02/10/2025 6:59 AM EDT) Only the most recent of5 resultswithin the time period is included. [facility] WBC 11.7(H) 4.8 - 10.8 K/mcL LAB HEMETOLOGY METHOD 02/10/2025 10:44 AM EDT [facility] RBC 3.40(L) 4.50 - 5.50 M/mcL LAB HEMETOLOGY METHOD 02/10/2025 10:44 AM EDT [facility] Hemoglobin 11.3(L) 13.5 - 17.5 g/dL LAB HEMETOLOGY METHOD 02/10/2025 10:44 AM EDT [facility] LAB Hematocrit 33.3(L) 42.0 - 54.0 % LAB HEMETOLOGY METHOD 02/10/2025 10:44 AM EDT [facility] MCV 97.4 79.0 - 98.0 FL LAB HEMETOLOGY METHOD 02/10/2025 10:44 AM [facility] MCH 33.0(H) 27.0 - 32.0 pcg LAB HEMETOLOGY METHOD 02/10/2025 10:44 AM [facility] LAB MCHC 33.9 32.0 - 37.0 g/dL LAB HEMETOLOGY METHOD 02/10/2025 10:44 AM [facility] RDW 11.6 11.0 - 15.0 % LAB HEMETOLOGY METHOD 02/10/2025 10:44 AM [facility] Platelets 312 130 - 400 K/mcL LAB HEMETOLOGY METHOD 02/10/2025 10:44 AM [facility] MPV 10.1 7.0 - 11.0 FL LAB HEMETOLOGY METHOD 02/10/2025 10:44 AM [facility] NRBC 0.0 <1.0 % LAB HEMETOLOGY METHOD 02/10/2025 10:44 AM [facility] NRBC Absolute 0.00 <0.10 K/mcL LAB HEMETOLOGY METHOD 02/10/2025 10:44 AM [facility] Neutrophils Relative 72.4 % LAB HEMETOLOGY METHOD 02/10/2025 10:44 AM [facility] Lymphocytes Relative 15.3 % LAB HEMETOLOGY METHOD 02/10/2025 10:44 AM [facility] Monocytes Relative 7.8 % LAB HEMETOLOGY METHOD 02/10/2025 10:44 AM [facility] Eosinophils Relative 2.7 % LAB HEMETOLOGY METHOD 02/10/2025 10:44 AM [facility] Basophils Relative 0.3 % LAB HEMETOLOGY METHOD 02/10/2025 10:44 AM [facility] Immature Granulocytes Relative 1.5 % LAB HEMETOLOGY METHOD 02/10/2025 10:44 AM EDT [facility] LAB Neutrophils Absolute 8.46(H) 1.50 - 7.00 K/[facility] LAB HEMETOLOGY METHOD 02/10/2025 10:44 AM EDT [facility] Lymphocytes Absolute 1.79 1.00 - 5.00 K/mcL LAB HEMETOLOGY METHOD 02/10/2025 10:44 AM EDT [facility] Monocytes Absolute 0.91 0.20 - 1.00 K/[facility] LAB HEMETOLOGY METHOD 02/10/2025 10:44 AM EDT [facility] Eosinophils Absolute 0.32 0.00 - 0.50 K/[facility] LAB HEMETOLOGY METHOD 02/10/2025 10:44 AM [...] AM EDT 02/10/2025 9:24 AM EDT us Jnen Hu MD LAB BLOOD ORDERABLES Final Resul t [facility] [address] [place] [address], * Thyroid stimulating hormone (02/10/2025 6:59 AM EDT) TSH 0.71 0.40 - 4.00 mcIU/mL LAB CHEMISTRY METHOD 02/10/2025 12:07 PM EDT [facility] Blood Venous blood specimen / Unknown Venipuncture / Unknown 02/10/2025 6:59 AM EDT 02/10/2025 9:24 AM EDT Jenn Hu MD LAB BLOOD ORDERABLES Final Resul t Performing Organization Address [facility] de Phone Number [facility] [address] [place] [address], * ECG-Outside (02/10/2025) Provider Onbase ECG ORDERABLES [...] ORDERABLES Final Resu lt Performing Organization Address [facility] de Phone Number [facility] [address] [place] [address], * Phosphorus (02/08/2025 5:31 AM EDT) Only [...] ORDERABLE S Final Result Performing Organization Address City/[facility]/ZIP Co de Phone Number [facility] [address] [place] [address], [place] [phone] * (ABNORMAL) Magnesium (02/08/2025 5:31 AM EDT) Only the most recent of4 resultswithin the time period is included. Pathologist [facility] Magnesium 1.8(L) 1.9 - 2.6 mg/dL LAB CHEMISTRY METHOD 02/08/2025 8:00 AM EDT [facility] Blood Venous blood specimen / Unknown Venipuncture / Unknown 02/08/2025 5:31 AM EDT 02/08/2025 6:21 AM EDT us Alon Gonsalez MD LAB BLOOD ORDERABLE S Final Result Performing Organization Address [facility] Co de Phone Number [facility] [address] [place] [address], [place] [phone] * (ABNORMAL) D-Dimer (02/08/2025 5:30 AM EDT) [...] infected, trauma patients, DIC, acute CVA, acute ND, unstable angina, AF, old age, , and smoking. D-Dimer may be decreased with: Initiation of heparin therapy and oral anticoagulants. us Rosario Lees MD LAB BLOOD ORDERABLES Final Resu lt Performing Organization Address [facility] Co de Phone Number [facility] [address] [place] [address], [place] [phone] * (ABNORMAL) Activated Partial Thromboplastin Time - [...] ORDERABLES Final Resu lt Performing Organization Address [facility]/ZIP Co de Phone Number [facility] [address] [place] [address], [place] [phone] * Anti-Xa - Every 6 Hours (02/07/2025 [...] LAB BLOOD ORDERABLES Final Res ult [facility] [address] [facility] [place] [address], [place] [phone] * (ABNORMAL) TRANSTHORACIC ECHOCARDIOGRAM (TTE) COMPLETE W/ CONTRAST (02/07/2025 10:37 AM EDT) Left Atrium Minor [place] 6.0 cm CV PACS Left Atrium Major [place] 6.1 cm CV PACS LA Area Sys [...] - 102 g/m2 CV PACS MV Deceleration [place] 5.6 m/s2 CV PACS MV PHT 41 [...] S' 18 cm/s CV PACS RA Major [place] 5.3 cm CV PACS RA Major [place] Index 2.6 2.1 - 2.7 cm/m2 CV [...] of2 resultswithin the time period is included. [facility] High Sensitivity Troponin I 22 <=79 ng/L [...] ORDERABLES Final Resu lt Performing Organization Address City/[facility] Co de Phone Number [facility] [address] [place] [address], [place] [phone] * Thyroid stimulating hormone with reflex to free t4 and free t3 (02/07/2025 6:31 AM EDT) [facility] TSH 1.11 0.40 - 4.00 mcIU/mL LAB CHEMISTRY METHOD 02/07/2025 9:41 AM EDT [facility] Blood Venous blood specimen / Unknown Venipuncture / Unknown 02/07/2025 6:31 AM EDT 02/07/2025 7:14 AM EDT us Rosario Lees MD LAB BLOOD ORDERABLES Final Resu lt Performing Organization Address City/State/[facility] de Phone Number [facility] [address] [place] [address], * Prostate specific antigen diagnostic (02/07/2025 6:31 AM EDT) PSA 3.83 0.00 - 4.00 ng/mL LAB CHEMISTRY METHOD 02/07/2025 9:26 AM EDT [facility] Blood Venous blood specimen / Unknown Venipuncture / Unknown 02/07/2025 6:31 AM EDT 02/07/2025 7:14 AM EDT Narrative [facility] - 02/07/2025 9:26 AM EDT The Siemens Advia [place] Chemiluminescent Immunoassay is used. Results obtained with different assay methods or kits cannot be used interchangeably. Results cannot be interpreted as absolute evidence of the presence or absence of malignant disease. us Rosario Lees MD LAB BLOOD ORDERABLES Final Resu lt Performing Organization Address [facility] de Phone Number [facility] [address] [place] [address], * (ABNORMAL) Prothrombin time with INR (02/07/2025 [...] BLOOD ORDERABLES Final Resu Performing Organization Address [facility]/State/ZIP Co de Phone Number [facility] [address] [place] [address], * Hemoglobin A1c (02/07/2025 6:31 AM EDT) [facility] Hemoglobin A1C 4.5 <6.5 % LAB CHEMISTRY [...] ORDERABLES Final Resu lt Performing Organization Address City/[facility]/ZIP Co de Phone Number [facility] [address] [place] [address], * Vitamin B12 (02/07/2025 6:31 AM EDT) [facility] Vitamin B-12 345 250 - 900 pcg/mL LAB CHEMISTRY METHOD 02/07/2025 8:34 AM EDT [facility] Blood Venous blood specimen / Unknown Venipuncture / Unknown 02/07/2025 6:31 AM EDT 02/07/2025 7:14 AM EDT us Rosario Lees MD LAB BLOOD ORDERABLES Final Resu lt [facility] [address] [place] [address], [place] [phone] * (ABNORMAL) Comprehensive metabolic panel (02/07/2025 6:31 AM EDT) Only the most recent of3 resultswithin the time period is included. [facility] Sodium 138 133 - 145 mmol/L LAB CHEMISTRY METHOD 02/07/2025 8:11 AM [facility] Potassium 3.6 3.5 - 5.5 mmol/L LAB CHEMISTRY METHOD 02/07/2025 8:11 AM [facility] Chloride 105 96 - 110 mmol/L LAB CHEMISTRY METHOD 02/07/2025 8:11 AM [facility] CO2 27 21 - 32 mmol/L LAB CHEMISTRY METHOD 02/07/2025 8:11 AM [facility] Anion Gap 6 3 - 11 LAB CHEMISTRY METHOD 02/07/2025 8:11 AM [facility] Glucose 99 70 - 100 mg/dL LAB CHEMISTRY METHOD 02/07/2025 8:11 AM [facility] BUN 8 5 - 25 mg/dL LAB CHEMISTRY METHOD 02/07/2025 8:11 AM [facility] Creatinine 0.55(L) 0.70 - 1.30 mg/dL LAB CHEMISTRY METHOD 02/07/2025 8:11 AM [facility] LAB eGFR 111 >=60 mL/min/1. 73m2 LAB CHEMISTRY METHOD 02/07/2025 8:11 AM [facility] Comment:Calculation based on the Chronic Kidney Disease Epidemiology Collaboration (CKD-EPI) equation refit without adjustment for race. BUN/Creatinine Ratio 14.5 LAB CHEMISTRY METHOD 02/07/2025 8:11 AM [facility] Calcium 8.7 8.5 - 10.5 mg/dL LAB CHEMISTRY METHOD 02/07/2025 8:11 AM [facility] AST (SGOT) 16 10 - 42 unit/L LAB CHEMISTRY METHOD 02/07/2025 8:11 AM [facility] ALT (SGPT) 12 10 - 60 unit/L LAB CHEMISTRY METHOD 02/07/2025 8:11 AM [facility] Alkaline Phosphatase 84 42 - [...] lt [facility] [address] [place] [address], * Respiratory virus panel molecular study (02/07/2025 12:37 AM EDT) Pathologist [facility] Adenovirus Detection by PCR Not Detected Not [...] AM EDT 02/07/2025 12:47 AM EDT Narrative [facility] - 02/07/2025 1:47 AM EDT Testing was performed using the [employer] Respiratory Pathogen PCR Assay. All results must [...] MICROBIOLOGY - GENERAL ORDE RICHARD Final Result [facility]) [facility] [address] [place] [address], * Vascular US duplex lower extremity venous [...] Signed Date: 02/06/2025 11:50 ET Workstation ID: [id number] Transcribed By: Self Edit Transcribed Date: 02/06/2025 11:39 ET Narrative 02/06/2025 11:50 AM EDT INDICATION: Shortness of breath FINDINGS: Perfusion only scan was obtained. 5.2 mCi of technetium 99 M MAA intravenously for the perfusion portion with imaging obtained in different positions including anterior, posterior, MAORI, HURLEY, LPO and HURLEY views. Relevant studies: [...] imaging obtained in different positions including anterior,posterior, MAORI, HURLEY, LPO and HURLEY views. Relevant studies: [...] Signed Date: 02/06/2025 11:50 ET Workstation ID: [id number] Transcribed By: Self Edit Transcribed Date: 02/06/2025 [...] lt [facility] [address] [place] [address], [place] [phone] * Lavender tube (02/06/2025 6:12 AM EDT) [...] ORDERABLES Final Resu lt Performing Organization Address [facility]/ZIP Co de Phone Number [facility] [address] [place] [address], [place] [phone] * (ABNORMAL) Creatine kinase (02/06/2025 6:12 AM EDT) Total CK 14(L) 22 - 269 unit/L LAB CHEMISTRY METHOD 02/06/2025 10:33 AM EDT [facility] Comment:Results verified by repeat testing Blood Venous blood specimen / Unknown Venipuncture / Unknown 02/06/2025 6:12 AM EDT 02/06/2025 6:20 AM EDT us Rosario Lees MD LAB BLOOD ORDERABLES Final Resu lt Performing Organization Address [facility] de Phone Number [facility] [address] [place] [address], [place] [phone] * Potassium (02/05/2025 12:09 PM EDT) Pathologist [facility] Potassium 3.8 3.5 - 5.5 mmol/L LAB CHEMISTRY METHOD 02/05/2025 12:38 PM EDT [facility] Blood Venous blood specimen / Unknown Venipuncture / Unknown 02/05/2025 12:09 PM EDT 02/05/2025 12:16 PM EDT us Richie Cerna MD LAB BLOOD ORDERABLES Final Resul t Performing Organization Address City/[facility]/ZIP Co de Phone Number [facility] [address] [place] [address], [place] [phone] * CT Chest/Abdomen/Pelvis wo Contrast (02/04/2025 6:00 [...] adenopathy. Abdominal aorta is normal caliber with [id number] calcific athero sclerosis. Bowel loops reveal no [...] adenopathy. Abdominal aorta is normal caliber with [id number] calcific athero sclerosis. Bowel loops reveal no [...] natriuretic peptide (02/04/2025 4:32 PM EDT) Pathologist [facility] BNP 180(H) <=100 pcg/mL LAB CHEMISTRY METHOD 02/04/2025 5:32 PM EDT [facility] Blood Venous blood specimen / Unknown Venipuncture / Unknown 02/04/2025 4:32 PM EDT 02/04/2025 4:54 PM EDT Frances Edward MD LAB BLOOD ORDERABLES Final R esult [facility] [address] [place] [address], * (ABNORMAL) Urinalysis with reflex microscopic (02/04/2025 4:13 PM EDT) [facility] Specific [place] Urine 1.010 1.003 - 1.030 LAB URINALYSIS - AUTOMATED METHOD 02/04/2025 5:08 PM [facility] pH, Urine 5.5 5.0 - 8.0 pH LAB URINALYSIS - AUTOMATED METHOD 02/04/2025 5:08 PM [facility] Leukocytes, Urine Trace(A) Negative LAB URINALYSIS - AUTOMATED METHOD 02/04/2025 5:08 PM [facility] Nitrite, Urine Negative Negative LAB URINALYSIS - AUTOMATED METHOD 02/04/2025 5:08 PM [facility] Protein, Urine Negative <=Trace mg/dL LAB URINALYSIS - AUTOMATED METHOD 02/04/2025 5:08 PM [facility] Glucose, Urine Negative Negative mg/dL LAB URINALYSIS - AUTOMATED METHOD 02/04/2025 5:08 PM [facility] Ketones, Urine Negative Negative mg/dL LAB URINALYSIS - AUTOMATED METHOD 02/04/2025 5:08 PM [facility] Urobilinogen, Urine 0.2 0.2 - 1.0 mg/dL LAB URINALYSIS - AUTOMATED METHOD 02/04/2025 5:08 PM [facility] Bilirubin, Urine Negative Negative LAB URINALYSIS - AUTOMATED METHOD 02/04/2025 5:08 PM [facility] Blood, Urine Negative Negative LAB URINALYSIS - AUTOMATED METHOD 02/04/2025 5:08 PM [facility] RBC, Urine 1.2 0 - 4 /HPF LAB URINALYSIS - AUTOMATED METHOD 02/04/2025 5:08 PM [facility] WBC, Urine 4.2(H) 0 - 4 /HPF LAB URINALYSIS - AUTOMATED METHOD 02/04/2025 5:08 PM [facility] Squamous Epithelial, Urine 12 0 - 60 /LPF LAB URINALYSIS - AUTOMATED METHOD 02/04/2025 5:08 PM [facility] Bacteria, Urine Negative Negative /HPF LAB URINALYSIS - AUTOMATED METHOD 02/04/2025 5:08 PM [facility] Hyaline Casts, Urine 0.0 0 - 3 /LPF LAB URINALYSIS - AUTOMATED METHOD 02/04/2025 5:08 PM [facility] Urine Urine specimen obtained by clean catch procedure / Unknown Non-blood Collection / Unknown 02/04/2025 4:13 PM EDT 02/04/2025 4:52 PM EDT us Frances Edward MD LAB URINE ORDERABLES Final R esult [facility] [address] [place] [address], * ECG 12 lead (02/04/2025 3:52 PM EDT) Ventricular Rate ECG 70 BPM GEMUSE Atrial Rate 70 BPM GEMUSE P-R Interval 172 ms GEMUSE QRS Duration 98 ms GEMUSE Q-T Interval 442 ms GEMUSE QTc 477 ms GEMUSE P Wave [place] 34 degrees GEMUSE R [place] -2 degrees GEMUSE T [place] -16 degrees GEMUSE ECG Interpretation Normal sinus rhythm Normal ECG No previous ECGs available Confirmed by LISSA SAUL ([id number]) on 02/05/2025 7:17:54 AM GEMUSE 02/04/2025 3:52 PM EDT 02/05/2025 7:17 AM EDT us Frances Edward MD ECG ORDERABLES Final Result GEMUSE * (ABNORMAL) Urinalysis with reflex microscopic and culture (01/28/2025 6:57 PM EDT) Specific [place] Urine 1.010 1.003 - 1.030 LAB URINALYSIS - AUTOMATED METHOD 01/28/2025 7:22 PM [facility] pH, Urine 7.0 5.0 - 8.0 pH LAB URINALYSIS - AUTOMATED METHOD 01/28/2025 7:22 PM [facility] Leukocytes, Urine Small(A) Negative LAB URINALYSIS - AUTOMATED METHOD 01/28/2025 7:22 PM [facility] Nitrite, Urine Negative Negative LAB URINALYSIS - AUTOMATED METHOD 01/28/2025 7:22 PM [facility] Protein, Urine Negative <=Trace mg/dL LAB URINALYSIS - AUTOMATED METHOD 01/28/2025 7:22 PM [facility] Glucose, Urine Negative Negative mg/dL LAB URINALYSIS - AUTOMATED METHOD 01/28/2025 7:22 PM [facility] Ketones, Urine Negative Negative mg/dL LAB URINALYSIS - AUTOMATED METHOD 01/28/2025 7:22 PM [facility] Urobilinogen, Urine 1.0 0.2 - 1.0 mg/dL LAB URINALYSIS - AUTOMATED METHOD 01/28/2025 7:22 PM EDT [facility] Bilirubin, Urine Negative Negative LAB URINALYSIS - AUTOMATED METHOD 01/28/2025 7:22 PM EDT [facility] Blood, Urine Negative Negative LAB URINALYSIS - AUTOMATED METHOD 01/28/2025 7:22 PM [facility] RBC, Urine 2.0 0 - 4 /HPF LAB URINALYSIS - [facility]OMATED METHOD [facility] WBC, Urine 11.8(H) 0 - 4 /HPF LAB URINALYSIS - AUTOMATED METHOD 01/28/2025 7:22 PM [facility] Squamous Epithelial, Urine 14 0 - 60 /LPF LAB URINALYSIS - AUTOMATED METHOD 01/28/2025 7:22 PM [facility] Bacteria, Urine Few(A) Negative /HPF LAB URINALYSIS - AUTOMATED METHOD 01/28/2025 7:22 PM [facility] Hyaline Casts, Urine 0.0 0 - 3 /LPF LAB URINALYSIS - AUTOMATED METHOD 01/28/2025 7:22 PM [facility] Urine Urine specimen obtained by clean catch procedure / Unknown Non-blood Collection / Unknown 01/28/2025 6:57 PM EDT 01/28/2025 7:12 PM EDT us Chelo Salazar DO LAB URINE ORDERABLES Final Re sult [facility] [address] [place] [address], * [place]roy urine culture tube (01/28/2025 6:57 PM EDT) Extra Tube Hold for add-ons. 01/28/2025 9:01 PM EDT [facility] Comment:Auto resulted. Urine Urine specimen obtained by clean catch procedure / Unknown Non-blood Collection / Unknown 01/28/2025 6:57 PM EDT 01/28/2025 7:12 PM EDT [facility] URINE ORDERABLES Final Re sult Performing Organization Address [facility]/ZIP Co de Phone Number [facility] [address] [place] [address], [place] [phone] * (ABNORMAL) Culture urine (01/28/2025 6:57 PM EDT) [facility] Culture, Urine >=100,000 CFU/mL Enterococcus faecalis(A) JOSH 01/30/2025 8:42 AM EDT [facility] Comment: This is an [...] MICROBIOLOGY - GENERAL OR DERABLES Final Result [facility] [address] [place] [address], [place] [phone] from Last 3 Months Insurance ) Advance Directives Documents on File Type Date Recorded Patient Visual Merchandising Associate Expl anation Advance Directives and Living Will [...] Lozano Spouse Health Care Agent Care Teams Grass Farmer Relationship Specialty Start Date End Date Jenn Hu MD [address] [place] [address] [address] [place] [address] PCP - General Geriatric Medicine 02/01/25
--- OUTSIDE RECORDS SUMMARY | 2025-04-03 11:20 | XMS_ITS | Encounter Summary ---
Author Organization [facility] Address [address] [place] [address] Care Team Providers Care Core Dropper Name Role Phone Brain Cyr DO Primary Care Provider [phone] Norma Rogel RN Unavailable Unavailable Reason for Visit * Reason Comments Medication Refill Encounter Details Date Type Department Care Team (Late st Contact Info) Description 12/26/2023 [facility]ill [facility] [address] [address] Natan Senior PA [address] [address] Closed fracture of right ankle with routine [...] visit [facility] [address] [address] 04/18/2025 3:00 PM EST Procedure visit [facility] [address] [address] 05/17/2025 9:45 AM EST Office Visit [facility] [address] [address] Esthela Kaye, ANGIE [address] [address] documented as of this encounter Visit Diagnoses Diagnosis Closed fracture of right ankle with routine healing, subsequent encounter documented in this encounter Care Teams Core Dropper Relationship Specialty Start Date End Date Brain Cyr DO PCP - General 07/14/18 Norma Rogel, LONI CT Registered Nurse 07/14/18 documented as of this encounter
--- OUTSIDE RECORDS SUMMARY | 2025-04-03 11:20 | XMS_ITS | Encounter Summary ---
Author Organization [facility] Address [address] [place] [address] Care Team Providers Care Latexer Name Role Phone Izabella Francis APRN Unavailable [phone] Alo Mcgrath Primary Care Provider [phone] Encounter Details Date Type Department Care Team (Late st Contact Info) Description 05/14/2023 Orders Only [facility] Department of Family Medicine [address] [place] [address] Brain Cyr F, DO Elevated [...] Description 05/19/2025 11:30 AM EST Ancillary Procedure [facility] [address] [place] [address] [address] [place] [phone] Ann Collins PA-C [address] [facility] [place] [address] 05/19/2025 12:00 PM EST Office Visit [facility] [address] [place] [address] [address] [place] [phone] Alfredo Moses MD [address] [place] [address] 06/28/2025 9:10 AM EST Office Visit [facility] [address] [place] [phone] Alo Mcgrath PA [address] [facility] [address] [place] [address] documented as of this encounter Visit Diagnoses Diagnosis Elevated PSA- Primary Elevated prostate specific antigen (PSA) Essential hypertension Unspecified essential hypertension Hypertensive heart disease without heart failure Unspecified hypertensive heart disease without heart failure Noncompliance Obstructive sleep apnea syndrome Obstructive sleep apnea (adult) (pediatric) Primary osteoarthritis involving multiple joints documented in this encounter Care Teams Latexer Relationship Specialty Start Date End Date Izabella Francis APRN PCP - Insurance Payer PCP 06/01/23 Alo Mcgrath PA [address] [address] PCP - General Internal Medicine 02/21/25 documented as of this encounter
--- OUTSIDE RECORDS SUMMARY | 2025-04-03 11:20 | XMS_ITS | Encounter Summary ---
Author Organization [facility] Address [address] [place] [address] Care Team Providers Care Management Manager Name Role Phone Brain Cyr DO Primary Care Provider [phone] Norma Rogel RN Unavailable Unavailable Encounter Details Date Type Department Care Team (Late st Contact Info) Description 03/07/2025 Scanned Document [facility] at Home [address] [facility] [address] [place] [address] Provider, Generic Social History Tobacco Use Types Packs/Day Years Used Date Smoking Tobacco: Former Cigarettes 1 10 0 07/14/1989 - 07/14/1999 Smokeless Tobacco: Never Alcohol Use Standard Drinks/Week Comments Yes 14 (1 standard drink = 0.6 oz pure alcohol) 2 vy, 2 shots liquor nightly, will stop pre op . Last drink 6 days ago. [facility] Utilities Answer Date Recorded In the past 12 months has [employer], [employer], oil, or water [employer] threatened to shut off services in your [...] any time in the past 12 m [facility], were you homeless or [...] visit [facility] [address] [address] 04/18/2025 3:00 PM EST Procedure visit [facility] [address] [address] 05/17/2025 9:45 AM EST Office Visit [facility] [address] [place] [phone] Esthela Kaye, AMMUNITION ASSEMBLY II LABORER [address] [address] documented as of this encounter Visit Diagnoses Not on filedocumented in this encounter Care Teams Management Manager Relationship Specialty Start Date End Date Brain Cyr DO PCP - General 07/14/18 Norma Rogel, LONI CT Registered Nurse 07/14/18 documented as of this encounter
--- OUTSIDE RECORDS SUMMARY | 2025-04-03 11:20 | XMS_ITS | Encounter Summary ---
Author Organization [facility] Address [address] [place] [address] Care Team Providers Care Fish Skinning Machine Feeder Name Role Phone Brain Cyr DO Primary Care Provider [phone] Norma Rogel RN Unavailable Unavailable Encounter Details Date Type Department Care Team (Late st Contact Info) Description 02/17/2025 Scanned Document [facility] at Home [address] [facility] [address] [place] [address] Provider, Generic Social History Tobacco [...] Recorded In the past 12 months has [employer], [employer], oil, or water [employer] threatened to shut off services in your [...] any time in the past 12 m [facility], were you homeless or [...] visit [facility] [address] [address] 04/18/2025 3:00 PM EST Procedure visit [facility] [address] [address] 05/17/2025 9:45 AM EST Office Visit [facility] [address] [place] [phone] Esthela Kaye, HOT STAMP OPERATOR [address] [address] documented as of this encounter Visit Diagnoses Not on filedocumented in this encounter Care Teams Fish Skinning Machine Feeder Relationship Specialty Start Date End Date Brain Cyr DO PCP - General 07/14/18 Norma Rogel, LONI CT Registered Nurse 07/14/18 documented as of this encounter
--- OUTSIDE RECORDS SUMMARY | 2025-04-03 11:20 | XMS_ITS | Encounter Summary ---
Author Organization [facility] Address [address] [place] [address] Care Team Providers Care Piano Tuner Name Role Phone Brain Cyr DO Primary Care Provider Norma Rogel RN Unavailable Unavailable Encounter Details Date Type Department Care Team (Late st Contact Info) Description 03/06/2025 Scanned Document [facility] at Home [address] [facility] [address] [place] [address] Provider, Generic Social History Tobacco Use Types Packs/Day Years Used Date Smoking Tobacco: Former Cigarettes 1 10 0 07/14/1989 - 07/14/1999 Smokeless Tobacco: Never Alcohol Use Standard Drinks/Week Comments Yes 14 (1 standard drink = 0.6 oz pure alcohol) 2 vy, 2 shots liquor nightly, will stop pre op . Last drink 6 days ago. [facility] Utilities Answer Date Recorded In the past 12 months has [employer], [employer], oil, or water [employer] threatened to shut off services in your [...] Procedure visit [facility] [address] [address] 04/18/2025 3:00 PM EST Procedure visit [facility] [address] [address] 05/17/2025 9:45 AM EST Office Visit [facility] [address] [place] [phone] Esthela Kaye, LICENSE CLERK [address] [address] documented as of this encounter Visit Diagnoses Not on filedocumented in this encounter Care Teams Piano Tuner Relationship Specialty Start Date End Date Brain Cyr DO PCP - General 07/14/18 Norma Rogel, LONI CT Registered Nurse 07/14/18 documented as of this encounter
--- OUTSIDE RECORDS SUMMARY | 2025-04-03 11:20 | XMS_ITS | Encounter Summary ---
Author Organization [facility] Address [address] [place] [address] Care Team Providers Care Classified Advertising Clerk Name Role Phone Ger Brain Payan DO Primary Care Provider Norma Rogel RN Unavailable Unavailable Encounter Details Date Type Department Care Team (Late st Contact Info) Description 01/19/2024 [facility]ill [facility] [address] [address] Jed Pinon MD [address] [address] Closed fracture of right ankle with routine [...] EST Procedure visit [facility] [address] [place] [phone] 04/18/2025 3:00 PM EST Procedure visit [facility] 330 [facility] [address] [place] [address] 05/17/2025 9:45 AM EST Office Visit [facility] [address] [address] Esthela Kaye, SUPERVISOR WASH HOUSE [address] [address] documented as of this encounter Visit Diagnoses Diagnosis Closed fracture of right ankle with routine healing, subsequent encounter documented in this encounter Care Teams Classified Advertising Clerk Relationship Specialty Start Date End Date Brain Cyr DO PCP - General 07/14/18 Norma Rogel, LONI CT Registered Nurse 07/14/18 documented as of this encounter
--- OUTSIDE RECORDS SUMMARY | 2025-04-03 11:20 | XMS_ITS | Encounter Summary ---
Author Organization [facility] Address [address] [place] [address] Care Team Providers Care Investment Strategist Name Role Phone Brain Cyr DO Primary Care Provider Norma Rogel RN Unavailable Unavailable Encounter Details Date Type Department Care Team (Late st Contact Info) Description 03/02/2025 Scanned Document [facility] at Home [address] [facility] [address] [place] [address] Provider, Generic Social History Tobacco Use Types Packs/Day Years Used Date Smoking Tobacco: Former Cigarettes 1 10 0 07/14/1989 - 07/14/1999 Smokeless Tobacco: Never Alcohol Use Standard Drinks/Week Comments Yes 14 (1 standard drink = 0.6 oz pure alcohol) 2 vy, 2 shots liquor nightly, will stop pre op . Last drink 6 days ago. [facility] Utilities Answer Date Recorded In the past 12 months has [employer], [employer], oil, or water [employer] threatened to shut off services in your [...] visit [facility] [address] [address] 04/18/2025 3:00 PM EST Procedure visit [facility] [address] [address] 05/17/2025 9:45 AM EST Office Visit [facility] [address] [place] [phone] Esthela Kaye, ELASTIC ASSEMBLER [address] [address] documented as of this encounter Visit Diagnoses Not on filedocumented in this encounter Care Teams Investment Strategist Relationship Specialty Start Date End Date Brain Cyr DO PCP - General 07/14/18 Norma Rogel, LONI CT Registered Nurse 07/14/18 documented as of this encounter
--- OUTSIDE RECORDS SUMMARY | 2025-04-03 11:21 | XMS_ITS | Encounter Summary ---
Author Organization [facility] Address [address] [place] [address] Care Team Providers Care Whizzer Operator Name Role Phone Brain Cyr DO Primary Care Provider [phone] Norma Rogel RN Unavailable Unavailable Encounter Details Date Type Department Care Team (Late st Contact Info) Description 02/27/2025 Scanned Document [facility] at Home [address] [facility] [address] [place] [address] Provider, Generic Social History Tobacco Use Types Packs/Day Years Used Date Smoking Tobacco: Former Cigarettes 1 10 0 07/14/1989 - 07/14/1999 Smokeless Tobacco: Never Alcohol Use Standard Drinks/Week Comments Yes 14 (1 standard drink = 0.6 oz pure alcohol) 2 vy, 2 shots liquor nightly, will stop pre op . Last drink 6 days ago. [facility] Utilities Answer Date Recorded In the past 12 months has [employer], [employer], oil, or water [employer] threatened to shut off services in your [...] any time in the past 12 m [facility], were you homeless or living in a prison (including now)? No 01/10/2025 Sex and Gender [...] Procedure visit [facility] [address] [address] 04/18/2025 3:00 PM EST Procedure visit [facility] [address] [address] 05/17/2025 9:45 AM EST Office Visit [facility] [address] [place] [phone] Esthela Kaye, SUBSTATION TECHNICIAN [address] [address] documented as of this encounter Visit Diagnoses Not on filedocumented in this encounter Care Teams Whizzer Operator Relationship Specialty Start Date End Date Brain Cyr DO PCP - General 07/14/18 Norma Rogel, LONI CT Registered Nurse 07/14/18 documented as of this encounter
--- OUTSIDE RECORDS SUMMARY | 2025-04-03 11:21 | XMS_ITS | Clinical Summary ---
Author Organization Count includes the [facility] Address [address] [place] [address] Care Team Providers Care Nurses' Registry Director Name Role Phone SheilaIzabella moreno ANGIE Unavailable [phone] Alo Mcgrath Primary Care Provider [phone] Allergies Active Allergy Reactions Criticality Noted Date Comments Rivaroxaban Swelling 06/14/2018 Leg edema Sertraline Other (see comments) 10/14/2017 Medications omeprazole [...] by mouth in the morning. 5 Active methocarbamoL (ROBAXIN) 750 mg tablet [...] before bedtime. 180 tablet 1 5 Active docusate sodium (COLACE) 100 mg capsule Take 100 mg by mouth 2 (two) times a day as needed. 5 Active HYDROcodone-evelyn taminophen (NORCO) 10-325 mg per tablet Take 1 tablet by mouth every 6 (six) hours as needed for moderate pain (4-7). Max Daily Amount: 4 tablets 60 tablet 5 Active gabapentin (NEURONTIN) 300 mg capsule Take 1 capsule (300 mg total) by mouth in the morning and 1 capsule (300 mg total) at noon and 1 capsule (300 mg total) before bedtime. 270 capsule 1 5 Active oxyCODONE (ROXICODONE) 5 mg immediate release tablet 5 mg. 5 03/29/20 Discontinu ed(Therapy completed) methocarbamoL (ROBAXIN) 750 mg tablet Take 750 mg by mouth. 5 03/09/20 Discontinu ed(Reorder ) apixaban (ELIQUIS) 5 mg Take 1 tablet (5 mg total) by mouth in the morning and 1 tablet (5 mg total) before bedtime. 180 tablet 1 5 03/20/20 Discontinu ed(Reorder ) HYDROcodone-evelyn taminophen (NORCO) 10-325 mg per tablet Take 1 tablet by mouth every 6 (six) hours as needed for moderate pain (4-7). Max Daily Amount: 4 tablets 60 tablet 5 03/07/20 Discontinu ed(Reorder ) HYDROcodone-evelyn taminophen (NORCO) 10-325 mg per tablet Take 1 tablet by mouth every 6 (six) hours as needed for moderate pain (4-7). Max Daily Amount: 4 tablets 60 tablet 5 03/29/20 Discontinu ed(Reorder ) Active Problems Problem Noted Date Diagnosed Date Lower extremity edema 02/05/2025 Urinary retention 02/04/2025 Cervical stenosis of spine 01/09/2025 Morbid obesity due to excess calories 01/09/2025 Obesity (BMI 30-39.9) 08/05/2024 Osteoarthritis of right [...] Vaccinations-consider flu- Covid-RSV- Shingrix x 2- TDap Vkhk-01-53-2024 Colonoscopy-last 11-27-2023 with EGD Assessment & Plan (04/10/2023 7:59 AM EST): EKG-l See today Wzrw-6-11-2023 < never obtained labs > still pending [...] allergies 07/15/2018 Swelling of both hands 06/09/2018 Inflammatory polyarthritis 11/20/2017 Osteoarthritis 11/20/2017 Synovitis 10/21/2017 Assessment & Plan (06/09/2018 2:52 PM EST): Symmetric both hands MCP joint Inflammatory arthritis 10/19/2017 Assessment & Plan (03/01/2020 7:26 AM EDT): Collaborative care with rheumatology [facility] Assessment & Plan (01/19/2020 8:48 AM EDT): [facility] collaborative --- asymptomatic at present Will follow clinically Assessment & Plan (04/26/2019 9:11 AM EST): No sign of flare to date Assessment & Plan (02/15/2019 2:51 PM EDT): 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 Previously improved with prednisone Seen [facility] Rheumatology Assessment & Plan (06/09/2018 2:50 PM EST): Acute exacerbation swelling in both hands Previously improved with prednisone Seen [facility] Rheumatology Assessment & Plan (10/27/2017 10:39 AM EDT): Differential Dx discussed in detail including: rheumatoid arthritis vs other small joint symmetrical arthritides Referral to [facility] Rheumatology - Brynn YOUSIF Will taper Prednisone [...] MACK Coping - working with [facility] Assessment & Plan (11/08/2021 8:16 AM EDT): [...] that has since failed -> referral to [facility] for new equipment Assessment & Plan (03/14/2024 9:00 AM EDT): Multiple attempts at upgrading PAP equipment and setting up repeat PAP assessment for known IKE Both scheduled for [facility] pulmonary and [facility] IKE Assessment & Plan (06/08/2023 12:22 PM EST): Patient has to set up appointment with [facility] Assessment & Plan (05/14/2023 9:17 AM EST): AP use ---> continues albeit older equipment Patient has to set up appointment with [facility] Assessment & Plan (04/10/2023 7:19 AM EST): AP use ---> continues albeit older equipment Patient to inform when ready for repeat sleep study Assessment & Plan (11/27/2022 8:20 AM EDT): PAP use ---> continues albeit older equipment Patient to inform when ready for repeat sleep study Assessment & Plan (08/28/2022 9:50 AM EDT): Request for new equipment - Will make referral to [facility]- pulmonary and continue with best effort weight [...] pressure support Best effort weight and diet Cervical vertebral fusion syndrome 08/07/2016 Neck pain 07/03/2016 Spinal cord compression 05/29/2016 Gastroesophageal reflux disease 09/29/2014 Assessment & Plan [...] Date Type Department Care Team Description 03/31/2025 1:00 PM EDT Office Visit Count includes the [facility] Department of Vascular Surgery [address] [place] [phone] Alfredo Moses MD Grillo, Laura M, PA-C Acute deep vein thrombosis of left peroneal vein (HCC) (Primary Dx) 03/29/2025 11:50 AM EDT Office Visit [facility] [address] [place] [phone] Alo Mcgrath PA Cervical stenosis of spinal canal (Primary Dx); Cervical radiculopathy; Deep vein thrombosis (DVT) of left lower extremity, unspecified chronicity, unspecified vein (HCC); Function kidney decreased; Hyponatremia; Urinary retention; Anemia, unspecified type 03/20/2025 Orders Only Count includes the [facility] Department of Internal Medicine [address] [facility] [place], [place] [phone] Alo Mcgrath PA 02/24/2025 1:10 PM EDT Office Visit Count includes the [facility] Department of Family Medicine [address] [place] [phone] Alo Mcgrath PA Cervical stenosis of spinal [...] 1 980 - 1997 Smokeless Tobacco: Never Tobacco Cessation:Counseling Given: No Alcohol Use Standard Drinks/Week Comments Yes 0 (1 standard drink = 0.6 oz pur e alcohol) daily 4 servings daily [employer] Utilities Answer Date Recorded In the past 12 months has [employer], [employer], oil, or water [employer] threatened to shut off services in your [...] any time in the past 12 m [facility], were you homeless or living in a half-way (including now)? 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 No / Unsure 03/31/2025 1:00 PM EDT Last Filed Vital Signs Vital Sign Reading Time Taken Comments Blood Pressure 112/64 03/31/2025 1:06 PM EDT Pulse 97 03/31/2025 1:06 PM EDT Temperature 37 C (98.6 F) 10/18/2022 9:10 AM EDT Respiratory Rate 16 03/31/2025 1:06 PM EDT Oxygen Saturation 97% 03/31/2025 1:06 PM EDT Inhaled Oxygen Concentration - - Weight 99.8 kg (220 lb) 03/31/2025 1:06 PM EDT Height 162.6 cm (5' 4 ) 03/31/2025 1:06 PM EDT Body Mass Index 37.76 03/31/2025 1:06 PM EDT Plan of Treatment Upcoming Encounters Date Type Department Care Team (Late st Contact Info) Description 05/19/2025 11:30 AM EST Ancillary Procedure [facility] [address] [place] [address] [address] [place] [phone] Ann Collins PA-C [address] [facility] [place] [address] 05/19/2025 12:00 PM EST Office Visit [facility] [address] [place] [address] [address] [place] [phone] Alfredo Moses MD [address] [place], [place] [phone] 06/28/2025 9:10 AM EST Office Visit [facility] [address] [place] [phone] Alo Mcgrath PA [address] [facility] [address] [place] [address] Health Maintenance Due Date Last Done Comments CT Colonography 1961 FIT-DNA (Cologuard) 1961 FIT 1961 FOBT 1961 Flex Sigmoidoscopy - 5y 1961 HIV Screening 1961 DTaP,Tdap,and Td Vaccines (1 - Tdap) 12/15/1979 Hepatitis C Screening 12/15/1979 Zoster Vaccines (1 of 2) 12/15/2011 Pneumococcal Vaccine, 50+ Years (2 of 2 - PCV20 or PCV21) 04/17/2017 04/17/2016 COVID-19 Vaccine (1 - 2023- season) 2025 Influenza Vaccine (#1) 2025 9, [...] Count 8.7 3.8 - 10.8 Thousand/ uL [facility] Red Cell Count 4.03(L) 4.20 - 5.80 Million/u L [facility] Hemoglobin 12.9(L) 13.2 - 17.1 g/dL [facility] Hematocrit 39.3 38.5 - 50.0 % [facility] MCV 97.5 80.0 - 100.0 fL [facility] MCH 32.0 27.0 - 33.0 pg [facility] MCHC 32.8 32.0 - 36.0 g/dL [facility] Comment: For adults, a slight decrease in the calculated MCHC value (in the range of 30 to 32 g/dL) is most likely not clinically significant; however, it should be interpreted with caution in correlation with other red cell parameters and the patient's clinical condition. RBC Distribution Width 11.9 11.0 - 15.0 % [facility] Platelet Count 293 140 - 400 Thousand/ uL [facility] MPV 9.8 7.5 - 12.5 fL [facility] 02/27/2025 10:2 2 AM EDT 02/27/2025 10:23 AM EDT Alo TREVINO Souqalmal LAB ORDERABLES Kimi l Result Performing Organization Address [facility] Co de Phone Number H?REL [address] [place] [phone] * (ABNORMAL) IRON, TIBC AND FERRITIN PANEL (Q) (02/27/2025 10:22 AM EDT) [facility] IRON, TOTAL 50 50 - 180 mcg/dL [facility] IRON BINDING CAPACITY 263 250 - 425 mcg/dL (calc) [facility] % SATURATION 19(L) 20 - 48 % (calc) [facility] FERRITIN 440(H) 24 - 380 ng/mL [facility] 02/27/2025 10:2 2 AM EDT 02/27/2025 10:23 AM EDT Alo TREVINO Souqalmal LAB ORDERABLES Kimi l Result Performing Organization Address [facility] de Phone Number H?REL [address] [place] [phone] * Colonoscopy (07/22/2012) Pathologist [facility] Colonoscopy completed Historical Provider HEALTH MAINTENANCE Final Result from Last 3 Months or Most Recently Relevant to Health Maintenance Insurance [facility] Care Teams Nurses' Registry Director Relationship Specialty Start Date End Date Izabella Francis [employer] [facility]ER PCP - Insurance Payer PCP 06/01/23 Alo Mcgrath PA [address] [address] PCP - General Internal Medicine 02/21/25
--- OUTSIDE RECORDS SUMMARY | 2025-04-03 11:21 | XMS_ITS | Encounter Summary ---
Author Organization [facility] Address [address] [place] [address] Care Team Providers Care Hand Hide Stretcher Name Role Phone Brain Cyr DO Primary Care Provider [phone] Norma Rogel RN Unavailable Unavailable Encounter Details Date Type Department Care Team (Late st Contact Info) Description 03/14/2025 Scanned Document [facility] at Home [address] [phone] Provider, Generic Social History Tobacco Use Types Packs/Day Years Used Date Smoking Tobacco: Former Cigarettes 1 10 0 07/14/1989 - 07/14/1999 Smokeless Tobacco: Never Alcohol Use Standard Drinks/Week Comments Yes 14 (1 standard drink = 0.6 oz pure alcohol) 2 vy, 2 shots liquor nightly, will stop pre op . Last drink 6 days ago. [facility] Utilities Answer Date Recorded In the past 12 months has [employer], [employer], oil, or water [employer] threatened to shut off services in your [...] any time in the past 12 m [facility], were you homeless or living in a assisted (including now)? No 01/10/2025 Sex and Gender [...] visit [facility] [address] [phone] 04/18/2025 3:00 PM EST Procedure visit [facility] [address] [address] 05/17/2025 9:45 AM EST Office Visit [facility] [address] [place] [phone] Esthela Kaye, LOSS CONTROL ENGINEER [address] [address] documented as of this encounter Visit Diagnoses Not on filedocumented in this encounter Care Teams Hand Hide Stretcher Relationship Specialty Start Date End Date Brain Cyr DO PCP - General 07/14/18 Norma Rogel, LONI [place] Registered Nurse 07/14/18 documented as of this encounter
--- OUTSIDE RECORDS SUMMARY | 2025-04-03 11:21 | XMS_ITS | Encounter Summary ---
Author Organization [facility] Address [address] [place] [address] Care Team Providers Care It Consulting Manager Name Role Phone Jenn Hu MD Primary Care Provider [phone] Encounter Details Date Type Department Care Team (Late st Contact Info) Description 02/01/2025 Lab Requisition [facility] - Main Lab [address] [facility] [place] [address] Jenn Hu MD [address] [place] [address] Essential (primary) hypertension Social History Tobacco Use [...] 3:20 PM EDT Roseanne Webster RN * Preston Suicide Severity Rating Scale (Screener/Recent Self-Report) Question [...] Comprehensive metabolic panel (02/01/2025 8:24 AM EDT) [facility] Signature Sodium 139 133 - 145 [...] LAB CHEMISTRY METHOD 02/01/2025 11:49 AM T [facility] Blood Venous blood specimen / Unknown Venipuncture / Unknown 02/01/2025 8:24 AM EDT 02/01/2025 10:42 AM EDT us Jenn Hu MD LAB BLOOD ORDERABLES Final Resul t [facility] [address] [place] [address], * (ABNORMAL) Complete blood count (02/01/2025 8:24 [...] LAB HEMETOLOGY METHOD 02/01/2025 11:02 AM EDT [facility] Platelets 187 130 - 400 K/mcL LAB HEMETOLOGY METHOD 02/01/2025 11:02 AM EDT [facility] MPV 10.2 7.0 - 11.0 FL LAB HEMETOLOGY METHOD 02/01/2025 11:02 AM EDT [facility] NRBC 0.0 <1.0 % LAB HEMETOLOGY METHOD 02/01/2025 11:02 AM EDT [facility] NRBC Absolute 0.00 <0.10 K/mcL LAB HEMETOLOGY METHOD 02/01/2025 11:02 AM EDT [facility] Blood Venous blood specimen / Unknown Venipuncture / Unknown 02/01/2025 8:24 AM EDT 02/01/2025 10:42 AM EDT us Jenn Hu MD LAB BLOOD ORDERABLES Final Resul t [facility] [address] [place] [address], documented in this encounter Visit Diagnoses Diagnosis Essential (primary) hypertension Unspecified essential hypertension documented in this encounter Additional Health Concerns Infection Onset Date Last Indicated Resolved Time Respiratory Rule-Out 02/06/2025 02/07/20252 025 1:47 AM EDT COVID-19 Rule-Out 02/06/2025 02/07/2025 02/07/2025 1:47 AM EDT documented as of this encounter Care Teams It Consulting Manager Relationship Specialty Start Date End Date Jenn Hu MD [address] [place] [address] [address] [place] [address] PCP - General Geriatric Medicine 02/01/25 documented as of this encounter
--- OUTSIDE RECORDS SUMMARY | 2025-04-03 11:21 | XMS_ITS | Encounter Summary ---
Author Organization [facility] Address [address] [place] [address] Care Team Providers Care Transportation Consultant Name Role Phone Brain Cyr DO Primary Care Provider [phone] Norma Rogel RN Unavailable Unavailable Encounter Details Date Type Department Care Team (Late st Contact Info) Description 03/11/2025 Scanned Document [facility] at Home [address] [place] [address] Provider, Generic Social History Tobacco Use Types Packs/Day Years Used Date Smoking Tobacco: Former Cigarettes 1 10 0 07/14/1989 - 07/14/1999 Smokeless Tobacco: Never Alcohol Use Standard Drinks/Week Comments Yes 14 (1 standard drink = 0.6 oz pure alcohol) 2 vy, 2 shots liquor nightly, will stop pre op . Last drink 6 days ago. [facility] Utilities Answer Date Recorded In the past 12 months has [employer], [employer], oil, or water [employer] threatened to shut off services in your [...] were you homeless or living in a fci (including now)? No 01/10/2025 Sex and Gender [...] visit [facility] [address] [phone] 04/18/2025 3:00 PM EST Procedure visit [facility] [address] [phone] 05/17/2025 9:45 AM EST Office Visit [facility] [address] [place] [phone] Esthela Kaye, VARYING EXCEPTIONALITIES TEACHER [address] [address] documented as of this encounter Visit Diagnoses Not on filedocumented in this encounter Care Teams Transportation Consultant Relationship Specialty Start Date End Date Brain Cyr DO PCP - General 07/14/18 Norma Rogel, LONI [place] Registered Nurse 07/14/18 documented as of this encounter
--- OUTSIDE RECORDS SUMMARY | 2025-04-03 11:21 | XMS_ITS | Encounter Summary ---
Author Organization [facility] Address [address] [place] [address] Care Team Providers Care Seismometer Operator Name Role Phone Brain Cyr DO Primary Care Provider [phone] Norma Rogel RN Unavailable Unavailable Encounter Details Date Type Department Care Team (Late st Contact Info) Description 02/28/2025 Scanned Document [facility] at Home [address] [address] Provider, Generic Social History Tobacco Use Types Packs/Day Years Used Date Smoking Tobacco: Former Cigarettes 1 10 0 07/14/1989 - 07/14/1999 Smokeless Tobacco: Never Alcohol Use Standard Drinks/Week Comments Yes 14 (1 standard drink = 0.6 oz pure alcohol) 2 vy, 2 shots liquor nightly, will stop pre op . Last drink 6 days ago. [facility] Utilities Answer Date Recorded In the past 12 months has [employer], [employer], oil, or water [employer] threatened to shut off services in your [...] Procedure visit [facility] [address] [phone] 04/18/2025 3:00 PM EST Procedure visit [facility] [address] [address] 05/17/2025 9:45 AM EST Office Visit [facility] [address] [place] [phone] Esthela Kaye, REHABILITATION COUNSELLOR [address] [address] documented as of this encounter Visit Diagnoses Not on filedocumented in this encounter Care Teams Seismometer Operator Relationship Specialty Start Date End Date Brain Cyr DO PCP - General 07/14/18 Norma Rogel, LONI [place] Registered Nurse 07/14/18 documented as of this encounter
--- OUTSIDE RECORDS SUMMARY | 2025-04-03 11:21 | XMS_ITS | Encounter Summary ---
Author Organization [facility] Address [address] [place] [address] Care Team Providers Care Senior It Security Analyst Name Role Phone Jenn Hu MD Primary Care Provider [phone] Encounter Details Date Type Department Care Team (Late st Contact Info) Description 02/03/2025 Lab Requisition [facility] - Main Lab [address] [facility] [place] [address] Jenn Hu MD [address] [place] [address] Vitamin D deficiency, unspecified; Cervicalgia; Weakness; Essential [...] 5:01 PM EDT Enid Hill RN * [place] Suicide Severity Rating Scale (Screener/Recent Self-Report) Question [...] documented as of this encounter Care Teams Senior It Security Analyst Relationship Specialty Start Date End Date Jenn Hu MD [address] [place] [address] [address] [place] [address] PCP - General Geriatric Medicine 02/01/25 documented as of this encounter
--- OUTSIDE RECORDS SUMMARY | 2025-04-03 11:21 | XMS_ITS | Encounter Summary ---
Author Organization [facility] Address [address] [place] [address] Care Team Providers Care Product Marketing Consultant Name Role Phone Brain Cyr DO Primary Care Provider [phone] Norma Rogel RN Unavailable Unavailable Encounter Details Date Type Department Care Team (Late st Contact Info) Description 03/17/2025 Scanned Document [facility] at Home [address] [facility] [address] [place] [address] Provider, Generic Social History Tobacco Use Types Packs/Day Years Used Date Smoking Tobacco: Former Cigarettes 1 10 0 07/14/1989 - 07/14/1999 Smokeless Tobacco: Never Alcohol Use Standard Drinks/Week Comments Yes 14 (1 standard drink = 0.6 oz pure alcohol) 2 vy, 2 shots liquor nightly, will stop pre op . Last drink 6 days ago. [facility] Utilities Answer Date Recorded In the past 12 months has [employer], [employer], oil, or water [employer] threatened to shut off services in your [...] time in the past 12 m [facility], were you homeless or living [...] Procedure visit [facility] [address] [phone] 04/18/2025 3:00 PM EST Procedure visit [facility] [address] [address] 05/17/2025 9:45 AM EST Office Visit [facility] [address] [place] [phone] Esthela Kaye, CAD DESIGNER [address] [address] documented as of this encounter Visit Diagnoses Not on filedocumented in this encounter Care Teams Product Marketing Consultant Relationship Specialty Start Date End Date Brain Cyr DO PCP - General 07/14/18 Norma Rogel, LONI [place] Registered Nurse 07/14/18 documented as of this encounter
--- OUTSIDE RECORDS SUMMARY | 2025-04-03 11:21 | XMS_ITS | Encounter Summary ---
Author Organization [facility] Address [address] [place] [address] Care Team Providers Care Sheet Metal Work Furnace Installer Name Role Phone Brain Cyr DO Primary Care Provider [phone] Norma Rogel RN Unavailable Unavailable Encounter Details Date Type Department Care Team (Late st Contact Info) Description 03/08/2025 Scanned Document [facility] at Home [address] [facility] [address] [place] [address] Provider, Generic Social History Tobacco Use Types Packs/Day Years Used Date Smoking Tobacco: Former Cigarettes 1 10 0 07/14/1989 - 07/14/1999 Smokeless Tobacco: Never Alcohol Use Standard Drinks/Week Comments Yes 14 (1 standard drink = 0.6 oz pure alcohol) 2 vy, 2 shots liquor nightly, will stop pre op . Last drink 6 days ago. [facility] Utilities Answer Date Recorded In the past 12 months has [employer], [employer], oil, or water [employer] threatened to shut off services in your [...] Procedure visit [facility] [address] [address] 04/18/2025 3:00 PM EST Procedure visit [facility] [address] [address] 05/17/2025 9:45 AM EST Office Visit [facility] [address] [place] [phone] Esthela Kaye, NETWORK SUPPORT [address] [address] documented as of this encounter Visit Diagnoses Not on filedocumented in this encounter Care Teams Sheet Metal Work Furnace Installer Relationship Specialty Start Date End Date Brain Cyr DO PCP - General 07/14/18 Norma Rogel, LONI [place] Registered Nurse 07/14/18 documented as of this encounter
--- OUTSIDE RECORDS SUMMARY | 2025-04-03 11:21 | XMS_ITS | Encounter Summary ---
Author Organization [facility] Address [address] [place] [address] Care Team Providers Care Carbon Grinder Name Role Phone SheilaIzabella moreno ANGIE Unavailable [phone] Alo Mcgrath Primary Care Provider [phone] Encounter Details Date Type Department Care Team (Late st Contact Info) Description 03/20/2025 Orders Only [facility] Department of Internal Medicine 1 [facility] [address] [place] [address] Alo Mcgrath PA [address] [facility] [address] [place] [address] Social History Tobacco Use Types Packs/Day Years Used Date Smoking Tobacco: Former Cigarettes 0.8 18 1 980 - 1997 Smokeless Tobacco: Never Alcohol Use Standard Drinks/Week Comments Yes 0 (1 standard drink = 0.6 oz pur e alcohol) daily 4 servings daily [facility] Utilities Answer Date Recorded In the past 12 months has th e [employer], gas, oil, or water [employer] threatened to shut off services in your [...] living in a mcc (including now)? No 05/20/2024 Diaper Assistance Answer [...] 05/19/2025 11:30 AM EST Ancillary Procedure [facility] Department of Vascular Surgery [address] [place] [address] [address] [place] [address] Ann Collins PA-C [address] [place] [address] [place] [address] 05/19/2025 12:00 PM EST Office Visit [facility] of Vascular Surgery [address] [place] [address] [address] [place] [address] Alfredo Moses MD [address] [place] [address] 06/28/2025 9:10 AM EST Office Visit [facility] Department of Family Medicine [address] [place] [address] Alo Mcgrath PA 1 [facility] [address] [place] [address] documented as of this encounter Visit Diagnoses Not on filedocumented in this encounter Care Teams Carbon Grinder Relationship Specialty Start Date End Date Izabella Francis APRN PCP - Insurance Payer PCP 06/01/23 Alo Mcgrath PA [address] [facility] [address] [place] [address] PCP - General Internal Medicine 02/21/25 documented as of this encounter
--- OUTSIDE RECORDS SUMMARY | 2025-04-03 11:21 | XMS_ITS | Encounter Summary ---
Author Organization [facility] Address [address] [place] [address] Care Team Providers Care Teacher Vocational Training Name Role Phone Ger Brain Payan DO Primary Care Provider [phone] Norma Rogel RN Unavailable Unavailable Encounter Details Date Type Department Care Team (Late st Contact Info) Description 11/12/2021 Prep for Surgery [facility] OPHTHALMOLOGY [address] [place] [address] Demetrius Thompson MD [address] [place] [address] Social History Tobacco Use Types Packs/Day Years [...] EST Procedure visit [facility] [address] [place] [phone] 04/18/2025 3:00 PM EST Procedure visit [facility] [address] [phone] 05/17/2025 9:45 AM EST Office Visit [facility] [address] [phone] Esthela Kaye, ACCOUNTS RECEIVABLE CLERK [address] [phone] documented as of this encounter Visit Diagnoses Not on filedocumented in this encounter Additional Health Concerns Infection Onset Date Last Indicated Resolved Time R/O COVID-19 (PUI) 11/14/2021 11/14/2021 7:25 AM EDT documented as of this encounter Care Teams Teacher Vocational Training Relationship Specialty Start Date End Date Brain Cyr DO PCP - General 07/14/18 Norma Rogel, LONI [place] Registered Nurse 07/14/18 documented as of this encounter
--- OUTSIDE RECORDS SUMMARY | 2025-04-03 11:21 | XMS_ITS | Encounter Summary ---
Author Organization [facility] Address [address] [place] [address] Care Team Providers Care Loop Machine Operator Name Role Phone Brain Cyr DO Primary Care Provider [phone] Norma Rogel RN Unavailable Unavailable Encounter Details Date Type Department Care Team (Late st Contact Info) Description 03/22/2025 Scanned Document [facility] at Home 1290 [facility] [address] [place] [address] Provider, Generic Social History Tobacco Use Types Packs/Day Years Used Date Smoking Tobacco: Former Cigarettes 1 10 0 07/14/1989 - 07/14/1999 Smokeless Tobacco: Never Alcohol Use Standard Drinks/Week Comments Yes 14 (1 standard drink = 0.6 oz pure alcohol) 2 vy, 2 shots liquor nightly, will stop pre op . Last drink 6 days ago. [facility] Utilities Answer Date Recorded In the past 12 months has [employer], [employer], oil, or water [employer] threatened to shut off services in your [...] any time in the past 12 m [facility], were you homeless or living [...] visit [facility] [address] [address] 04/18/2025 3:00 PM EST Procedure visit [facility] [address] [address] 05/17/2025 9:45 AM EST Office Visit [facility] [address] [place] [phone] Esthela Kaye, ASSISTANT HOUSEKEEPING MANAGER [address] [address] documented as of this encounter Visit Diagnoses Not on filedocumented in this encounter Care Teams Loop Machine Operator Relationship Specialty Start Date End Date Brain Cyr DO PCP - General 07/14/18 Norma Rogel, LONI [place] Registered Nurse 07/14/18 documented as of this encounter
--- OUTSIDE RECORDS SUMMARY | 2025-04-03 11:21 | XMS_ITS | Encounter Summary ---
Author Organization [facility] Address [address] [place] [address] Care Team Providers Care Senior Application Programmer Name Role Phone Brain Cyr DO Primary Care Provider [phone] Norma Rogel RN Unavailable Unavailable Encounter Details Date Type Department Care Team (Late st Contact Info) Description 02/19/2025 Scanned Document [facility] at Home 1290 [facility] [address] [place] [address] Provider, Generic Social History Tobacco [...] Recorded In the past 12 months has [employer], [employer], oil, or water [employer] threatened to shut off services in your [...] any time in the past 12 m [facility], were you homeless or [...] visit [facility] [address] [address] 04/18/2025 3:00 PM EST Procedure visit [facility] [address] [address] 05/17/2025 9:45 AM EST Office Visit [facility] [address] [place] [phone] Esthela Kaye, JOB SETTER HONING [address] [address] documented as of this encounter Visit Diagnoses Not on filedocumented in this encounter Care Teams Senior Application Programmer Relationship Specialty Start Date End Date Brain Cyr DO PCP - General 07/14/18 Norma Rogel, LONI [place] Registered Nurse 07/14/18 documented as of this encounter
--- OUTSIDE RECORDS SUMMARY | 2025-04-03 11:21 | XMS_ITS | Encounter Summary ---
Author Organization [facility] Address [address] [place] [address] Care Team Providers Care Channel Lip Wetter Name Role Phone Brain Cyr DO Primary Care Provider [phone] Norma Rogel RN Unavailable Unavailable Encounter Details Date Type Department Care Team (Late st Contact Info) Description 02/18/2025 Scanned Document [facility] at Home 1290 [facility] [address] [place] [address] Provider, Generic Social History Tobacco Use Types Packs/Day Years Used Date Smoking Tobacco: Former Cigarettes 1 10 0 07/14/1989 - 07/14/1999 Smokeless Tobacco: Never Alcohol Use Standard Drinks/Week Comments Yes 14 (1 standard drink = 0.6 oz pure alcohol) 2 vy, 2 shots liquor nightly, will stop pre op . Last drink 6 days ago. [facility] Utilities Answer Date Recorded In the past 12 months has [employer], [employer] oil, or water [employer] threatened to shut off services in your [...] Procedure visit [facility] [address] [address] 04/18/2025 3:00 PM EST Procedure visit [facility] [address] [address] 05/17/2025 9:45 AM EST Office Visit [facility] [address] [place] [phone] Esthela Kaye, [employer] FIELD COORDINATOR [address] [address] documented as of this encounter Visit Diagnoses Not on filedocumented in this encounter Care Teams Channel Lip Wetter Relationship Specialty Start Date End Date Brain Cyr DO PCP - General 07/14/18 Norma Rogel, LONI [place] Registered Nurse 07/14/18 documented as of this encounter
--- OUTSIDE RECORDS SUMMARY | 2025-04-03 11:21 | XMS_ITS | Encounter Summary ---
Author Organization [facility] Address [address] [place] [address] Care Team Providers Care Human Machine Interface Engineer Name Role Phone Brain Cyr DO Primary Care Provider [phone] Norma Rogel RN Unavailable Unavailable Encounter Details Date Type Department Care Team (Late st Contact Info) Description 03/23/2025 Scanned Document [facility] at Home [address] [facility] [address] [place] [address] Provider, Generic Social History Tobacco Use Types Packs/Day Years Used Date Smoking Tobacco: Former Cigarettes 1 10 0 07/14/1989 - 07/14/1999 Smokeless Tobacco: Never Alcohol Use Standard Drinks/Week Comments Yes 14 (1 standard drink = 0.6 oz pure alcohol) 2 vy, 2 shots liquor nightly, will stop pre op . Last drink 6 days ago. [facility] Utilities Answer Date Recorded In the past 12 months has [employer], [employer], oil, or water [employer] threatened to shut off services in your [...] any time in the past 12 m [facility], were you homeless or living in a [...] Procedure visit [facility] [address] [phone] 04/18/2025 3:00 PM EST Procedure visit [facility] [address] [address] 05/17/2025 9:45 AM EST Office Visit [facility] [address] [place] [phone] Esthela Kaye, BRIDGE BUILDER [address] [address] documented as of this encounter Visit Diagnoses Not on filedocumented in this encounter Care Teams Human Machine Interface Engineer Relationship Specialty Start Date End Date Brain Cyr DO PCP - General 07/14/18 Norma Rogel, LONI [place] Registered Nurse 07/14/18 documented as of this encounter
--- OUTSIDE RECORDS SUMMARY | 2025-04-03 11:21 | XMS_ITS | Encounter Summary ---
Author Organization [facility] Address [address] [place] [address] Care Team Providers Care Lighting Fixture Installer Name Role Phone Brain Cyr DO Primary Care Provider [phone] Norma Rogel RN Unavailable Unavailable Encounter Details Date Type Department Care Team (Late st Contact Info) Description 03/13/2025 Scanned Document [facility] at Home 1290 [facility] [address] [place] [address] Provider, Generic Social History Tobacco Use Types Packs/Day Years Used Date Smoking Tobacco: Former Cigarettes 1 10 0 07/14/1989 - 07/14/1999 Smokeless Tobacco: Never Alcohol Use Standard Drinks/Week Comments Yes 14 (1 standard drink = 0.6 oz pure alcohol) 2 vy, 2 shots liquor nightly, will stop pre op . Last drink 6 days ago. [facility] Utilities Answer Date Recorded In the past 12 months has [employer], [employer], oil, or water [employer] threatened to shut off services in your [...] any time in the past 12 m [facility], were you homeless or living in [...] Procedure visit [facility] [address] [address] 04/18/2025 3:00 PM EST Procedure visit [facility] [address] [address] 05/17/2025 9:45 AM EST Office Visit [facility] [address] [place] [phone] Esthela Kaye, IT HELP DESK MANAGER [address] [address] documented as of this encounter Visit Diagnoses Not on filedocumented in this encounter Care Teams Lighting Fixture Installer Relationship Specialty Start Date End Date Brain Cyr DO PCP - General 07/14/18 Norma Rogel, LONI [place] Registered Nurse 07/14/18 documented as of this encounter
--- OUTSIDE RECORDS SUMMARY | 2025-04-03 11:21 | XMS_ITS | Encounter Summary ---
Author Organization [facility] Address [address] [place] [address] Care Team Providers Care Draw String Knotter Name Role Phone Brain Cyr DO Primary Care Provider [phone] Norma Rogel RN Unavailable Unavailable Encounter Details Date Type Department Care Team (Late st Contact Info) Description 03/10/2025 Scanned Document [facility] at Home 12[address] [facility] [address] [place] [address] Provider, Generic Social History Tobacco Use Types Packs/Day Years Used Date Smoking Tobacco: Former Cigarettes 1 10 0 07/14/1989 - 07/14/1999 Smokeless Tobacco: Never Alcohol Use Standard Drinks/Week Comments Yes 14 (1 standard drink = 0.6 oz pure alcohol) 2 vy, 2 shots liquor nightly, will stop pre op . Last drink 6 days ago. [facility] Utilities Answer Date Recorded In the past 12 months has [facility], [employer], oil, or water [employer] threatened to shut off services in your [...] any time in the past 12 m [facility], were you homeless or living in [...] visit [facility] [address] [address] 04/18/2025 3:00 PM EST Procedure visit [facility] [address] [address] 05/17/2025 9:45 AM EST Office Visit [facility] [address] [place] [phone] Esthela Kaye, HARVEST CONTRACTOR [address] [address] documented as of this encounter Visit Diagnoses Not on filedocumented in this encounter Care Teams Draw String Knotter Relationship Specialty Start Date End Date Brain Cyr DO PCP - General 07/14/18 Norma Rogel, LONI [place] Registered Nurse 07/14/18 documented as of this encounter
--- OUTSIDE RECORDS SUMMARY | 2025-04-03 11:21 | XMS_ITS | Encounter Summary ---
Author Organization [facility] Address [address] [place] [address] Care Team Providers Care Dogger Name Role Phone Brain Cyr DO Primary Care Provider [phone] Norma Rogel RN Unavailable Unavailable Encounter Details Date Type Department Care Team (Late st Contact Info) Description 03/15/2025 Scanned Document [facility] Home 1290 [facility] [address] [place] [address] Provider, Generic Social History Tobacco [...] Recorded In the past 12 months has [employer], [employer], oil, or water [employer] threatened to shut off services in your [...] any time in the past 12 m [facility], were you homeless or living in a nursing home (including now)? No 01/10/2025 Sex and [...] Procedure visit [facility] [address] [address] 04/18/2025 3:00 PM EST Procedure visit [facility] [address] [address] 05/17/2025 9:45 AM EST Office Visit [facility] [address] [place] [phone] Esthela Kaye, ARTIST SCIENTIFIC [address] [address] documented as of this encounter Visit Diagnoses Not on filedocumented in this encounter Care Teams Dogger Relationship Specialty Start Date End Date Brain Cyr DO PCP - General 07/14/18 Norma Rogel, LONI [place] Registered Nurse 07/14/18 documented as of this encounter
--- OUTSIDE RECORDS SUMMARY | 2025-04-03 11:21 | XMS_ITS | Encounter Summary ---
Author Organization [facility] Address [address] [place] [address] Care Team Providers Care Index Editor Name Role Phone Jenn Hu MD Primary Care Provider [phone] Encounter Details Date Type Department Care Team (Late st Contact Info) Description 02/17/[address] [facility] [address] [facility] [place] [address] Jenn Hu MD [address] [place] [address] Vitamin D deficiency, unspecified; Cervicalgia; Weakness; Essential [...] hypertension documented in this encounter Care Teams Index Editor Relationship Specialty Start Date End Date Jenn Hu MD [address] [place] [address] [address] [place] [address] PCP - General Geriatric Medicine 02/01/25 documented as of this encounter
--- OUTSIDE RECORDS SUMMARY | 2025-04-03 11:21 | XMS_ITS | Encounter Summary ---
Author Organization [facility] Address [address] [place] [address] Care Team Providers Care Electronic Assembler Group Leader Name Role Phone Brain Cyr DO Primary Care Provider [phone] Norma Rogel RN Unavailable Unavailable Encounter Details Date Type Department Care Team (Late st Contact Info) Description 02/21/2025 Scanned Document [facility] at Home 1290 [facility] [address] [place] [address] Provider, Generic Social History Tobacco Use Types Packs/Day Years Used Date Smoking Tobacco: Former Cigarettes 1 10 0 07/14/1989 - 07/14/1999 Smokeless Tobacco: Never Alcohol Use Standard Drinks/Week Comments Yes 14 (1 standard drink = 0.6 oz pure alcohol) 2 vy, 2 shots liquor nightly, will stop pre op . Last drink 6 days ago. [facility] Utilities Answer Date Recorded In the past 12 months has [employer], [employer], oil, or water [employer] threatened to shut off services in your [...] visit [facility] [address] [address] 04/18/2025 3:00 PM EST Procedure visit [facility] [address] [address] 05/17/2025 9:45 AM EST Office Visit [facility] [address] [place] [phone] Esthela Kaye, LABORATORY DIRECTOR [address] [address] documented as of this encounter Visit Diagnoses Not on filedocumented in this encounter Care Teams Electronic Assembler Group Leader Relationship Specialty Start Date End Date Brain Cyr DO PCP - General 07/14/18 Norma Rogel, LONI [place] Registered Nurse 07/14/18 documented as of this encounter
--- OUTSIDE RECORDS SUMMARY | 2025-04-03 11:21 | XMS_ITS | Encounter Summary ---
Author Organization [facility] Address [address] [place] [address] Care Team Providers Care Physical Security Specialist Name Role Phone JoealejandraBrain DO Primary Care Provider [phone] Norma Rogel RN Unavailable Unavailable Encounter Details Date Type Department Care Team (Late st Contact Info) Description 10/20/2022 Erroneous Encounter [facility] [address] [place] [address] Provider, MD Darell Social History [...] Procedure visit [facility] [address] [phone] 04/18/2025 3:00 PM EST Procedure visit [facility] [address] [phone] 05/17/2025 9:45 AM EST Office Visit [facility] 330 [facility] [address] [place] [address] Esthela Kaye, TRAFFIC OPERATIONS ENGINEER 326 [facility] [address] [place], [place] [phone] documented as of this encounter Visit Diagnoses Not on filedocumented in this encounter Care Teams Physical Security Specialist Relationship Specialty Start Date End Date Brain Cyr DO PCP - General 07/14/18 Norma Rogel, LONI [place] Registered Nurse 07/14/18 documented as of this encounter
--- OUTSIDE RECORDS SUMMARY | 2025-04-03 11:21 | XMS_ITS | Encounter Summary ---
Author Organization [facility] Address [address] [place] [address] Care Team Providers Care Modern Languages Professor Name Role Phone Brain Cyr DO Primary Care Provider Norma Rogel RN Unavailable Unavailable Encounter Details Date Type Department Care Team (Late st Contact Info) Description 03/21/2025 Scanned Document [facility] at Home 1290 [facility] [address] [place] [address] Provider, Generic Social History Tobacco Use Types Packs/Day Years Used Date Smoking Tobacco: Former Cigarettes 1 10 0 07/14/1989 - 07/14/1999 Smokeless Tobacco: Never Alcohol Use Standard Drinks/Week Comments Yes 14 (1 standard drink = 0.6 oz pure alcohol) 2 vy, 2 shots liquor nightly, will stop pre op . Last drink 6 days ago. [facility] Utilities Answer Date Recorded In the past 12 months has [employer], [employer], oil, or water [employer] threatened to shut off services in your [...] any time in the past 12 m [facility], were you homeless or [...] visit [facility] [address] [address] 04/18/2025 3:00 PM EST Procedure visit [facility] [address] [address] 05/17/2025 9:45 AM EST Office Visit [facility] [address] [place] [phone] Esthela Kaye, PACKAGE CENTER SUPERVISOR [address] [address] documented as of this encounter Visit Diagnoses Not on filedocumented in this encounter Care Teams Modern Languages Professor Relationship Specialty Start Date End Date Brain Cyr DO PCP - General 07/14/18 Norma Rogel, LONI [place] Registered Nurse 07/14/18 documented as of this encounter
== END 2025-04-03 10:31 | disposition home or self-care (01) ==
LOC: HO.HNS 09:48
PROVIDERS: Visit Provider Physician Assistant
DX: Z98.1 Arthrodesis status (principal)
CPT/HCPCS: 99024

== ENCOUNTER → 2025-04-03 09:56 | Outpatient (BNV) | payer BC, SELFPAY | PROVIDERS: Visit Provider Radiology Diagnostic Radiology | DX: Z98.1 Arthrodesis status (principal) | CPT/HCPCS: 72050 ==

== ENCOUNTER 2025-04-03 14:29 | Outpatient (REF) | payer BC, SELFPAY ==
--- OUTSIDE RECORDS SUMMARY | 2025-03-31 12:00 | XMS_ITS | Encounter Summary ---
Author Organization [facility] Address [address] [place] [address] Care Team Providers Care Strategic Consultant Name Role Phone Izabella Francis ANGIE Unavailable [phone] Alo Mcgrath Primary Care Provider [phone] Reason for Referral * Diagnostic Imaging (Routine) - Pending Review Specialty Diagnoses / Procedures Referred By Trevor nieto Referred To Contact Radiology Diagnoses Acute deep vein thrombosis of left peroneal vein (HCC) Procedures Venous doppler lower extremity left Ann Collins PA-C [address] [facility] [place] [address] Phone: tel: fax: Referral ID Status Reason Start Date Expiration Date V isits Requested Visits Authorized [id number] Pending Review 03/31/2025 05/05/2026 1 1 Reason for Visit * Reason Comments Deep Vein Thrombosis * Surgical (Routine) - Closed Specialty Diagnoses / Procedures Referred By Contha t Referred To Contact Vascular Surgery Diagnoses Deep vein thrombosis (DVT) of left lower extremity, unspecified chronicity, unspecified vein (HCC) Alo Mcgrath PA [address] [facility] [address] [place] [phone] Phone: tel: fax: [facility] Department of Vascular Surgery 1 [facility],[address] [place] [address] Phone: tel: Referral ID Status Reason Start Date Expiration Date Visits Re quested Visits Authorized [id number] Closed 02/24/2025 03/31/2026 1 1 Encounter Details Date Type Department Care Team (Late st Contact Info) Description 03/31/2025 1:00 PM EDT Office Visit [facility] Department of Vascular Surgery [address] [place] [address] [address] [place] [phone] Alfredo Moses MD [address] [place] [address] Ann Collins, PAEddieC [address] [facility] [place] [address] Acute deep vein thrombosis of left peroneal vein (HCC) (Primary Dx) Social History Tobacco Use Types Packs/Day Years Used Date Smoking Tobacco: Former Cigarettes 0.8 18 1 980 - 1997 Smokeless Tobacco: Never Alcohol Use Standard Drinks/Week Comments Yes 0 (1 standard drink = 0.6 oz pur e alcohol) daily 4 servings daily [facility] Utilities Answer Date Recorded In the past 12 months has th e electric, gas, oil, or water company [...] any time in the past 12 m [facility], were you homeless or living in a retirement (including now)? No 05/20/2024 Diaper Assistance Answer [...] suspected to have Coronavirus/COVID-19? No / Unsure 03/31/2025 1:00 PM EDT documented as of this encounter Last Filed Vital Signs Vital Sign Reading Time Taken Comments Blood Pressure 112/64 03/31/2025 1:06 PM EDT Pulse 97 03/31/2025 1:06 PM EDT Temperature - - Respiratory Rate 16 03/31/2025 1:06 PM EDT Oxygen Saturation 97% 03/31/2025 1:06 PM EDT Inhaled Oxygen Concentration - - Weight 99.8 kg (220 lb) 03/31/2025 1:06 PM EDT Height 162.6 cm (5' 4 ) 03/31/2025 1:06 PM EDT Body Mass Index 37.76 03/31/2025 1:06 PM EDT documented in this encounter Progress Notes * Ann Collins PA-C - 03/31/2025 1:00 PM EDT Vascular Surgery Office Visit Patient Name: Lopez Jackson Patient Patient referred by: Alo Mcgrath PA-C Subjective Lopez Jackson is a 64 y.o. male who is here today for Deep Vein Thrombosis . HPI Patient is a 64-year-old male with past medical history significant for hypertension who presents to the office today for evaluation of left lower extremity peroneal DVT. Per the patient he states that back in December he had worsening cervical spinal stenosis that required surgery. He had been discharged to a senior living facility where they had noted left lower extremity edema. Ultrasound on 02/04/2025 demonstrated no DVT. A CT of the chest performed at that time demonstrated no pulmonary embolism. Patient's lower extremity edema continued. D-dimer was elevated (value not able to be found onchart review). A repeat left lower extremity ultrasound was performed on 02/06/2025 that demonstrateda left peroneal DVT. A nuclear medicine lung perfusion scan was performed that demonstrated high probability for pulmonary emboli . Due to this patient was placed on Eliquis. Per the patient he states that he has not noticed significant left lower extremity edema in his postoperative period. He states that he has baseline edema in his right ankle. Pertinent Vascular History: 02/06/2025: LLE peroneal DVT; nuclear medicine lung scan perfusion noted high probability for pulmonary emboli. Review of Systems All other systems reviewed and are negative. Medications Medications Ordered Prior to Encounter[1] Allergies Allergies[2] PMH PSH Past Medical History: Diagnosis Date Anxiety Arita's esophagus with esophagitis egd 10/10/2013 Closed right ankle fracture Colon polyps benign Edentulism Elevated PSA Elevated transaminase level Environmental allergies GERD (gastroesophageal reflux disease) Hyperglycemia Hypertension Hypertensive heart disease Left hip pain Nicotine dependence in remission Obesity (BMI 30-39.9) IKE on CPAP Osteoarthritis Swelling of both hands Synovitis Thyroid nodule benign Venous dermatitis Past Surgical History: Procedure Laterality Date CERVICAL SPINE SURGERY CIRCUMCISION COLONOSCOPY 07/22/2012 PELVIC FRACTURE SURGERY Right THR REPLACEMENT TOTAL KNEE Bilateral TOOTH EXTRACTION edentulous UPPER GASTROINTESTINAL ENDOSCOPY Social History Family History Social History[3] Family History Problem Relation Age of Onset Stomach cancer Mother Heart disease Father Rheum arthritis Father Sleep apnea Brother Hypertension Brother Hypertension Brother No Known Problems Maternal Grandmother No Known Problems Maternal Grandfather Heart attack Paternal Grandmother No Known Problems Paternal Grandfather No Known Problems Son No Known Problems Son Objective Vitals: 03/31/25 1306 BP: 112/64 BP Location: Left upper arm Patient Position: Sitting Pulse: 97 Resp: 16 SpO2: 97% Weight: 99.8 kg (220 lb) Height: 162.6 cm (64 ) Physical Exam Constitutional: Appearance: Normal appearance. Cardiovascular: Rate and Rhythm: Normal rate. Pulmonary: Effort: Pulmonary effort is normal. Skin: General: Skin is warm and dry. Comments: LLE: warm, + motor, trace edema noted in the calf and ankle, calf is soft and non-tender to palpation, no skin discoloration, palpable DP and PT pulses noted RLE: warm, + motor, 1+ edema at the level of the ankle, calf is soft and [id number] to palpation, no skin discoloration, palpable DP and PT pulses noted Neurological: Mental Status: He is alert. Assessment/Plan Patient is a 64 year male with a provoked left peroneal DVT after undergoing semiemergent cervical spine surgery and being sedentary postoperative. The patient's history, exam and imaging were reviewed. I discussed with the patient and his significant other that there is no imaging that definitively says that he has a pulmonary embolism. The nuclear medicine scan is only able to tell us if there is a high probability. Either way treatment for a provoked PE and provoked DVT is the same. We reviewed that treatment is ultrasounds at 3 and 6 months. If the thrombus has cleared at 3 months patient may have his Eliquis stopped and be transition to aspirin 81 mg p.o. daily for an additional 3 months. If thrombus remains on the 3-month ultrasound patient will continue on anticoagulation for an additional 3 months with repeat ultrasound at the 6-month jesse. On exam patient has minimal left lower extremity edema. I do not believe patient requires compression stockings. Encouraged patient to continue to ambulate. Patient has been scheduled for follow-up ultrasound and office visit on 05/19/2025. Him and his significant other understand to call our office any questions or concerns. All questions were answered Greater than 30 minutes was spent on reviewing of tests, obtaining and reviewing history, performing a medically appropriate exam, counseling and educating the patient and documenting clinical information Ann Collins PA-C 03/31/25 2:17 PM Problem List[4] Visit Diagnosis ICD-10-CM 1. Acute deep vein thrombosis of left peroneal vein (HCC) I82.452 Dragon: This medical document was created using the [employer] System. Although this document has been carefully reviewed, there may still be some phonetic and other typographical errors. These errors are purely grammatical due to imperfections in the software program and should not be construed in any way to compromise the substance of the patient's medical care during this visit. [1] Current Outpatient Medications on File Prior [...] 2 (two) times a day as needed. gabapentin (NEURONTIN) 300 mg capsule Take 1 capsule (300 mg total) by mouth in the morning and 1 capsule (300 mg total) at noon and 1 capsule (300 mg total) before bedtime. 270 capsule 1 HYDROcodone-acetaminophen (NORCO) 10-325 mg per tablet Take 1 tablet by mouth every 6 (six) hours as needed for moderate pain (4-7). Max Daily Amount: 4 tablets 60 tablet 0 methocarbamoL (ROBAXIN) 750 mg tablet Take 1 [...] facility-administered medications on file prior to visit. [2] Allergies Allergen Reactions Rivaroxaban Swelling Leg edema Sertraline Other (see comments) [3] Social History Socioeconomic History Marital status: Spouse name: Marta Number of children: 2 Years of education: 12 Occupational History Occupation: holds [employer] Comment: 50 hrs week 1st shift /[place] Tobacco Use Smoking status: Former Current packs/day: 0.00 Average packs/day: 0.8 packs/day for 18.0 years (13.5 ttl pk-yrs) Types: Cigarettes Start date: 1979 Quit date: 1997 Years since quittin.8 Smokeless tobacco: Never Vaping Use Vaping status: Never Used Substance and Sexual Activity Alcohol use: Yes Comment: daily 4 servings daily Drug use: No Sexual activity: Yes Partners: Female Social Drivers of Health Food Insecurity: No Food Insecurity (01/10/2025) Received from [facility] Hunger Vital Sign Within the past 12 months, you worried that your food would run out before you got the money to buymore.: Never true Within the past 12 months, the food you bought just didn't last and you didn't have money to get more.: Never true Housing Stability: Low Risk (01/10/2025) Received from [facility] Housing Stability Vital Sign In the last 12 months, was there a time when you were not able to pay the mortgage or rent on time?: No In the past 12 months, how many times have you moved where you were living?: 0 At any time in the past 12 months, were you homeless or living in a retirement (including now)?: No Transportation Needs: No Transportation Needs (01/10/2025) Received from [facility] PRAPARE - Transportation In the past 12 months, has lack of transportation kept you from medical appointments or from getting medications?: No In the past 12 months, has lack of transportation kept you from meetings, work, or from getting things needed for daily living?: No Depression: Not at risk (03/29/2025) PHQ-2 PHQ-2 Score: 0 Tobacco Use: Medium Risk (03/31/2025) Patient History Smoking Tobacco Use: Former Smokeless Tobacco Use: Never Alcohol Use: Alcohol Misuse (01/10/2025) Received from [facility] AUDIT-C Q1: How often do you have a drink containing alcohol?: 4 or more times a week Q2: How many drinks containing alcohol do you have on a typical day when you are drinking?: 3 or 4 Q3: How often do you have six or more drinks on one occasion?: Daily or almost daily Diaper Assistance: Unknown (04/10/2023) Diaper Assistance Diaper Assistance for Individuals: No Diaper Assistance for Individuals and Children Under 3: Not applicable (I do not have a child in diapers) Financial Resource Strain: Low Risk (01/10/2025) Received from [facility] Overall Financial Resource Strain (CARDIA) Difficulty of Paying Living Expenses: Not very hard Utilities: Not At Risk (01/10/2025) Received from [facility] Utilities Threatened with loss of utilities: No [4] Patient Active Problem List Diagnosis Gastroesophageal reflux disease Essential hypertension Primary osteoarthritis involving multiple joints Obstructive sleep apnea syndrome, moderate Inflammatory arthritis Synovitis Swelling of both hands Hypertensive heart disease without heart failure Arita's esophagus with esophagitis Anxiety Elevated transaminase level Environmental allergies Left hip pain Osteoarthritis of knee Annual physical exam Adenomatous polyp of colon Hyperglycemia Noncompliance Elevated PSA Closed fracture of right ankle Sprain of deltoid ligament of right ankle Osteoarthritis of right ankle and foot Obesity (BMI 30-39.9) Cervical stenosis of spine Cervical vertebral fusion syndrome Neck pain Lower extremity edema Morbid obesity due to excess calories (HCC) Spinal cord compression (HCC) Urinary retention Inflammatory polyarthritis (HCC) Osteoarthritis documented in this encounter Plan of Treatment Upcoming Encounters Date Type Department Care Team (Late st Contact Info) Description 05/19/2025 11:30 AM EST Ancillary Procedure [facility] [address] [place] [phone] Ann Collins PA-C [address] [place] [address] [place] [address] 05/19/2025 12:00 PM EST Office Visit [facility] [address] [place] [address] [address] [place] [phone] Alfredo Moses MD [address] [place], [place] [address] 06/28/2025 9:10 AM EST Office Visit [facility] of Family Medicine [address] [place] [phone] Alo Mcgrath PA [address] [place] [address] Scheduled Orders Name Type Priority Associated Diagnoses Order Schedule Venous doppler lower extremity left Vascular Ultrasound Routine Acute deep vein thrombosis of left peroneal vein (HCC) 1 Occurrences starting 03/31/2025 until 03/31/2026 documented as of this encounter Visit Diagnoses Diagnosis Acute deep vein thrombosis of left peroneal vein (HCC)- Primary documented in this encounter Care Teams Strategic Consultant Relationship Specialty Start Date End Date Izabella Francis APRN PCP - Insurance Payer PCP 06/01/23 Alo Mcgrath PA [address] [place] [address] [place] [address] PCP - General Internal Medicine 02/21/25 documented as of this encounter
--- NOTE | ~2025-04-03 | XR_ITS ---
EXAMINATION: XR CERVICAL SPINE CLINICAL INFORMATION: Z98.1 - Arthrodesis status COMPARISON: None available. TECHNIQUE: Lateral views in neutral, flexion and extension position. AP view. FINDINGS: Intervertebral disc/interbody spacer placement, C3-4, C4-5 and C5-6. 2 mm anterolisthesis C3-4 in neutral position which persists in flexion and extension position. Craniocervical junction is intact. No acute cortical disruption. No lytic or blastic lesions. Vascular calcifications likely carotid bulbs and ICA pronounced on the left side. Edentulous. Upper airways patent. XR/XR cervical spine 4V IMPRESSION: Status post arthrodesis, C3-4, C4-5 and C5-6 without gross instability. Electronically signed by: Josh Fair MD 04/03/2025 10:30 AM [facility]
--- OUTSIDE RECORDS SUMMARY | 2025-04-04 17:32 | XMS_ITS | Encounter Summary ---
Author Organization [facility] Address [address] [place] [address] Care Team Providers Care Automotive Buyer Name Role Phone Brain Cyr DO Primary Care Provider [phone] Norma Rogel RN Unavailable Unavailable Encounter Details Date Type Department Care Team (Late st Contact Info) Description 03/31/2025 Scanned Document [facility] at Home 1290 [facility] [address] [place] [address] Provider, Generic Social History Tobacco Use Types Packs/Day Years Used Date Smoking Tobacco: Former Cigarettes 1 10 0 07/14/1989 - 07/14/1999 Smokeless Tobacco: Never Alcohol Use Standard Drinks/Week Comments Yes 14 (1 standard drink = 0.6 oz pure alcohol) 2 vy, 2 shots liquor nightly, will stop pre op . Last drink 6 days ago. [facility] Utilities Answer Date Recorded In the past 12 months has [employer], [employer], oil, or water [employer] threatened to shut off services in your [...] in the past 12 m [facility], were you homeless or living in a snf (including now)? No 01/10/2025 Sex and Gender [...] on filedocumented in this encounter Care Teams Automotive Buyer Relationship Specialty Start Date End Date Brian Cyr DO PCP - General 07/14/18 Norma Rogel, LONI [place] Registered Nurse 07/14/18 documented as of this encounter
--- OUTSIDE RECORDS SUMMARY | 2025-04-04 17:32 | XMS_ITS | Encounter Summary ---
Author Organization [facility] Address [address] [place] [address] Care Team Providers Care Retail Associate Manager Bilingual Name Role Phone Brain Cyr DO Primary Care Provider Norma Rogel RN Unavailable Unavailable Reason for Visit * Reason Comments Medication Refill Encounter Details Date Type Department Care Team (Late st Contact Info) Description 03/29/2024 [facility]ill [facility] [address] [address] Jed Pinon MD [address] [place] [address] [place] [address] Closed fracture of right ankle with routine [...] encounter documented in this encounter Care Teams Retail Associate Manager Bilingual Relationship Specialty Start Date End Date Brain Cyr DO PCP - General 07/14/18 Norma Rogel, LONI CT Registered Nurse 07/14/18 documented as of this encounter
--- OUTSIDE RECORDS SUMMARY | 2025-04-04 17:32 | XMS_ITS | Encounter Summary ---
Author Organization [facility] Address [address] [place] [address] Care Team Providers Care Strip Polisher Name Role Phone Jenn Hu MD Primary Care Provider Encounter Details Date Type Department Care Team (Late st Contact Info) Description 02/05/2025 Lab Requisition [facility] - Main Lab 299 [facility] [place] [address] Jenn Hu MD [address] [place] [address] Chronic kidney disease, unspecified Social History Tobacco [...] 5:01 PM EDT Enid Hill RN * [place] Suicide Severity Rating Scale (Screener/Recent Self-Report) Question [...] documented as of this encounter Care Teams Strip Polisher Relationship Specialty Start Date End Date Jenn Hu MD [address] [place] [address] [address] [place] [address] PCP - General Geriatric Medicine 02/01/25 documented as of this encounter
--- OUTSIDE RECORDS SUMMARY | 2025-04-04 17:32 | XMS_ITS | Encounter Summary ---
Author Organization [facility] Address [address] [place] [address] Care Team Providers Care Health Safety Engineer Name Role Phone Brain Cyr DO Primary Care Provider [phone] Norma Rogel RN Unavailable Unavailable Encounter Details Date Type Department Care Team (Late st Contact Info) Description 10/22/2023 Refill [facility] [address] [phone] Jed Pinon MD [address] [place] [address] Social History Tobacco Use Types Packs/Day Years [...] on filedocumented in this encounter Care Teams Health Safety Engineer Relationship Specialty Start Date End Date Brain Cyr DO PCP - General 07/14/18 Norma Rogel, LONI CT Registered Nurse 07/14/18 documented as of this encounter
--- OUTSIDE RECORDS SUMMARY | 2025-04-04 17:32 | XMS_ITS | Encounter Summary ---
Author Organization [facility] Address [address] [place] [address] Care Team Providers Care Sex Offender Treatment Professional Name Role Phone Brain Cyr DO Primary Care Provider [phone] Norma Rogel RN Unavailable Unavailable Encounter Details Date Type Department Care Team (Late st Contact Info) Description 03/04/2025 Scanned Document [facility] at Home [address] [facility] [address] [place] [address] Provider, Generic Social History Tobacco Use Types Packs/Day Years Used Date Smoking Tobacco: Former Cigarettes 1 10 0 07/14/1989 - 07/14/1999 Smokeless Tobacco: Never Alcohol Use Standard Drinks/Week Comments Yes 14 (1 standard drink = 0.6 oz pure alcohol) 2 vy, 2 shots liquor nightly, will stop pre op . Last drink 6 days ago. [facility] Utilities Answer Date Recorded In the past 12 months has [employer], [employer], oil, or water [employer] threatened to shut off services in [...] any time in the past 12 m [facility], were you homeless or [...] on filedocumented in this encounter Care Teams Sex Offender Treatment Professional Relationship Specialty Start Date End Date Brain Cyr DO PCP - General 07/14/18 Norma Rogel, LONI CT Registered Nurse 07/14/18 documented as of this encounter
--- OUTSIDE RECORDS SUMMARY | 2025-04-04 17:32 | XMS_ITS | Encounter Summary ---
Author Organization [facility] Address [address] [place] [address] Care Team Providers Care Office Manager Name Role Phone Jenn Hu MD Primary Care Provider [phone] Encounter Details Date Type Department Care Team (Late st Contact Info) Description 02/04/2025 Lab Requisition [facility] - Main Lab 299 [facility] [place] [address] Jenn Hu MD [address] [place] [address] Chronic kidney disease, unspecified Social History Tobacco [...] 5:01 PM EDT Enid Hill RN * [place] Suicide Severity Rating Scale (Screener/Recent Self-Report) Question [...] LAB CHEMISTRY METHOD 02/04/2025 12:12 PM T [facility] Potassium 3.1(L) 3.5 - 5.5 mmol/L LAB CHEMISTRY METHOD 02/04/2025 12:12 PM T [facility] Chloride 99 96 - 110 mmol/L LAB CHEMISTRY METHOD 02/04/2025 12:12 PM [facility] CO2 23 21 - 32 mmol/L LAB CHEMISTRY METHOD 02/04/2025 12:12 PM [facility] Anion Gap 10 3 - 11 LAB CHEMISTRY METHOD 02/04/2025 12:12 PM [facility] Glucose 78 70 - 100 mg/dL LAB CHEMISTRY METHOD 02/04/2025 12:12 PM [facility] BUN 66(H) 5 - 25 mg/dL LAB CHEMISTRY METHOD 02/04/2025 12:12 PM [facility] Creatinine 5.04(H) 0.70 - 1.30 mg/dL LAB CHEMISTRY METHOD 02/04/2025 12:12 PM [facility] eGFR 12(L) >=60 mL/min/1. 73m2 LAB CHEMISTRY METHOD 02/04/2025 12:12 PM [facility] Comment:Calculation based on the Chronic Kidney Disease Epidemiology Collaboration (CKD-EPI) equation refit without adjustment for race. BUN/Creatinine Ratio 13.1 LAB CHEMISTRY METHOD 02/04/2025 12:12 PM [facility] Calcium 8.9 8.5 - 10.5 mg/dL LAB CHEMISTRY METHOD 02/04/2025 12:12 PM [facility] Blood Venous blood specimen / Unknown Venipuncture / Unknown 02/04/2025 9:30 AM EDT 02/04/2025 11:17 AM EDT us Jenn Hu MD LAB BLOOD ORDERABLES Final Resul t [facility] [address] [place] [address], documented in this encounter Visit Diagnoses Diagnosis Chronic kidney disease, unspecified documented in this encounter Additional Health Concerns Infection Onset Date Last Indicated Resolved Time Respiratory Rule-Out 02/06/2025 02/07/2025 025 1:47 AM EDT COVID-19 Rule-Out 02/06/2025 02/07/2025 02/07/2025 1:47 AM EDT documented as of this encounter Care Teams Office Manager Relationship Specialty Start Date End Date Jenn Hu MD [address] [place] [address] [address] [place] [address] PCP - General Geriatric Medicine 02/01/25 documented as of this encounter
--- OUTSIDE RECORDS SUMMARY | 2025-04-04 17:32 | XMS_ITS | Encounter Summary ---
Author Organization [facility] Address [address] [place] [address] Care Team Providers Care Crusher Loader Operator Name Role Phone Brain Cyr DO Primary Care Provider [phone] Norma Rogel RN Unavailable Unavailable Encounter Details Date Type Department Care Team (Late st Contact Info) Description 03/07/2025 Scanned Document [facility] at Home [address] [facility] [address] [place] [address] Provider, Generic Social History Tobacco Use Types Packs/Day Years Used Date Smoking Tobacco: Former Cigarettes 1 10 0 07/14/1989 - 07/14/1999 Smokeless Tobacco: Never Alcohol Use Standard Drinks/Week Comments Yes 14 (1 standard drink = 0.6 oz pure alcohol) 2 vy, 2 shots liquor nightly, will stop pre op . Last drink 6 days ago. [facility] Utilities Answer Date Recorded In the past 12 months has [employer], [employer], oil, or water [employer] threatened to shut off services in your [...] time in the past 12 m [facility], were you homeless or living in a [...] on filedocumented in this encounter Care Teams Crusher Loader Operator Relationship Specialty Start Date End Date Brain Cyr DO PCP - General 07/14/18 Norma Rogel, LONI CT Registered Nurse 07/14/18 documented as of this encounter
--- OUTSIDE RECORDS SUMMARY | 2025-04-04 17:32 | XMS_ITS | Encounter Summary ---
Author Organization [facility] Address [address] [place] [address] Care Team Providers Care Education Department Registrar Name Role Phone Brain Cyr DO Primary Care Provider [phone] Norma Rogel RN Unavailable Unavailable Encounter Details Date Type Department Care Team (Late st Contact Info) Description 04/04/2025 Scanned Document [facility] at Home [address] [facility] [address] [place] [address] Provider, Generic Social History Tobacco Use Types Packs/Day Years Used Date Smoking Tobacco: Former Cigarettes 1 10 0 07/14/1989 - 07/14/1999 Smokeless Tobacco: Never Alcohol Use Standard Drinks/Week Comments Yes 14 (1 standard drink = 0.6 oz pure alcohol) 2 vy, 2 shots liquor nightly, will stop pre op . Last drink [address] [facility] Utilities Answer Date Recorded In the past 12 months has [email or web address], [employer], oil, or water [employer] threatened to shut off services in your [...] on filedocumented in this encounter Care Teams Education Department Registrar Relationship Specialty Start Date End Date Brain Cyr DO PCP - General 07/14/18 Norma Rogel, LONI CT Registered Nurse 07/14/18 documented as of this encounter
--- OUTSIDE RECORDS SUMMARY | 2025-04-04 17:32 | XMS_ITS | Encounter Summary ---
Author Organization [facility] Address [address] [place] [address] Care Team Providers Care Monument Installer Name Role Phone Izabella Francis APRN Unavailable [phone] Alo Mcgrath Primary Care Provider [phone] Encounter Details Date Type Department Care Team (Late st Contact Info) Description 05/14/2023 Orders Only [facility] Department of Family Medicine [address] [place] [address] Brain Cyr F, DO Elevated [...] 11:30 AM EST Ancillary Procedure [facility] of [facility] [address] [place] [address] [address] [place] [phone] Ann Collins PA-C [address] [facility] [place] [address] 05/19/2025 12:00 PM EST Office Visit [facility] [address] [place] [address] [address] [place] [phone] Alfredo Moses MD [address] [place] [address] 06/28/2025 9:10 AM EST Office Visit [facility] Medicine [address] [place] [address] Alo Mcgrath PA 1 [facility] [address] [place] [address] documented as of this encounter Visit Diagnoses Diagnosis Elevated PSA- Primary Elevated prostate specific antigen (PSA) Essential hypertension Unspecified essential hypertension Hypertensive heart disease without heart failure Unspecified hypertensive heart disease without heart failure Noncompliance Obstructive sleep apnea syndrome Obstructive sleep apnea (adult) (pediatric) Primary osteoarthritis involving multiple joints documented in this encounter Care Teams Monument Installer Relationship Specialty Start Date End Date Izabella Francis APRN PCP - Insurance Payer PCP 06/01/23 Alo Mcgrath PA [address] [address] PCP - General Internal Medicine 02/21/25 documented as of this encounter
--- OUTSIDE RECORDS SUMMARY | 2025-04-04 17:32 | XMS_ITS | Encounter Summary ---
Author Organization [facility] Address [address] [place] [address] Care Team Providers Care Regulatory Technician Name Role Phone Brain Cyr DO Primary Care Provider [phone] Norma Rogel RN Unavailable Unavailable Encounter Details Date Type Department Care Team (Late st Contact Info) Description 03/29/2025 Scanned Document [facility] at Home [address] [facility] [address] [place] [address] Provider, Generic Social History Tobacco Use Types Packs/Day Years Used Date Smoking Tobacco: Former Cigarettes 1 10 0 07/14/1989 - 07/14/1999 Smokeless Tobacco: Never Alcohol Use Standard Drinks/Week Comments Yes 14 (1 standard drink = 0.6 oz pure alcohol) 2 vy, 2 shots liquor nightly, will stop pre op . Last drink 6 days ago. [facility] Utilities Answer Date Recorded In the past 12 months has [employer], [employer], oil, or water [employer] threatened to shut off services in your [...] in the past 12 m [facility], were you homeless or living in a [...] on filedocumented in this encounter Care Teams Regulatory Technician Relationship Specialty Start Date End Date Brain Cyr DO PCP - General 07/14/18 Norma Rogel, LONI CT Registered Nurse 07/14/18 documented as of this encounter
--- OUTSIDE RECORDS SUMMARY | 2025-04-04 17:32 | XMS_ITS | Encounter Summary ---
Author Organization [facility] Address [address] [place] [address] Care Team Providers Care Station Jailer Name Role Phone Brain Cyr DO Primary Care Provider [phone] Norma Rogel RN Unavailable Unavailable Encounter Details Date Type Department Care Team (Late st Contact Info) Description 11/26/2023 Scanned Document [facility] [address] [address] Demetrius Gonzalez MD 85 [facility] [address] [place] [address] Social History Tobacco Use Types Packs/Day Years [...] on filedocumented in this encounter Care Teams Station Jailer Relationship Specialty Start Date End Date Brain Cyr DO PCP - General 07/14/18 Norma Rogel, LONI CT Registered Nurse 07/14/18 documented as of this encounter
--- OUTSIDE RECORDS SUMMARY | 2025-04-04 17:32 | XMS_ITS | Encounter Summary ---
Author Organization [facility] Address [address] [place] [address] Care Team Providers Care Director Of Recruiting Name Role Phone Jenn Hu MD Primary Care Provider [phone] Encounter Details Date Type Department Care Team (Late st Contact Info) Description 02/10/2025 Lab Requisition [facility] - Main Lab 299 [facility] [place] [address] Jenn Hu MD [address] [place] [address] Urinary tract infection, site not specified Social [...] CBC auto differential (02/10/2025 6:59 AM EDT) [facility] WBC 11.7(H) 4.8 - 10.8 K/[facility] LAB HEMETOLOGY METHOD 02/10/2025 10:44 AM EDT [facility] RBC 3.40(L) 4.50 - 5.50 M/mcL LAB HEMETOLOGY METHOD 02/10/2025 10:44 AM [facility] Hemoglobin 11.3(L) 13.5 - 17.5 g/dL LAB HEMETOLOGY METHOD 02/10/2025 10:44 AM [facility] Hematocrit 33.3(L) 42.0 - 54.0 % LAB HEMETOLOGY METHOD 02/10/2025 10:44 AM [facility] MCV 97.4 79.0 - 98.0 FL LAB HEMETOLOGY METHOD 02/10/2025 10:44 AM [facility] MCH 33.0(H) 27.0 - 32.0 pcg LAB HEMETOLOGY METHOD 02/10/2025 10:44 AM [facility] MCHC 33.9 32.0 - 37.0 g/dL LAB HEMETOLOGY METHOD 02/10/2025 10:44 AM [facility] RDW 11.6 11.0 - 15.0 % LAB HEMETOLOGY METHOD 02/10/2025 10:44 AM [facility] Platelets 312 130 - 400 K/mcL LAB HEMETOLOGY METHOD 02/10/2025 10:44 AM [facility] MPV 10.1 7.0 - 11.0 FL LAB HEMETOLOGY METHOD 02/10/2025 10:44 AM [facility] NRBC 0.0 <1.0 % LAB HEMETOLOGY METHOD 02/10/2025 10:44 AM [facility] NRBC Absolute 0.00 <0.10 K/mcL LAB HEMETOLOGY METHOD 02/10/2025 10:44 AM [facility] Neutrophils Relative 72.4 % LAB HEMETOLOGY METHOD 02/10/2025 10:44 AM [facility] Lymphocytes Relative 15.3 % LAB HEMETOLOGY METHOD 02/10/2025 10:44 AM [facility] Monocytes Relative 7.8 % LAB HEMETOLOGY METHOD 02/10/2025 10:44 AM [facility] Eosinophils Relative 2.7 % LAB HEMETOLOGY METHOD 02/10/2025 10:44 AM [facility] Basophils Relative 0.3 % LAB HEMETOLOGY METHOD 02/10/2025 10:44 AM [facility] Immature Granulocytes Relative 1.5 % LAB HEMETOLOGY METHOD 02/10/2025 10:44 AM [facility] Neutrophils Absolute 8.46(H) 1.50 - 7.00 K/mcL LAB HEMETOLOGY METHOD 02/10/2025 10:44 AM [facility] Lymphocytes Absolute 1.79 1.00 - 5.00 K/mcL LAB HEMETOLOGY METHOD 02/10/2025 10:44 AM [facility] Monocytes Absolute 0.91 0.20 - 1.00 K/mcL LAB HEMETOLOGY METHOD 02/10/2025 10:44 AM [facility] Eosinophils Absolute 0.32 0.00 - 0.50 K/mcL LAB HEMETOLOGY METHOD 02/10/2025 10:44 AM [facility] Basophils Absolute 0.04 0.00 - 0.20 K/mcL LAB HEMETOLOGY METHOD 02/10/2025 10:44 AM [facility] Immature Granulocytes Absolute 0.18(H) 0.00 - 0.03 K/mcL LAB HEMETOLOGY METHOD 02/10/2025 10:44 AM [facility] Blood Venous blood specimen / Unknown Venipuncture / Unknown 02/10/2025 6:59 AM EDT 02/10/2025 9:24 AM EDT us Fahim A Mayte MD LAB BLOOD ORDERABLES Final Resul t Performing Organization Address City/[facility]/ZIP Co de Phone Number [facility] [address] [place] [address], [place] [phone] * Vitamin B12 and folate (02/10/2025 6:59 AM EDT) Pathologist [facility] Vitamin B-12 311 250 - 900 pcg/mL LAB CHEMISTRY METHOD 02/10/2025 11:40 AM EDT [facility] Folate 2.9 2.8 - 17.0 ng/ml LAB CHEMISTRY METHOD 02/10/2025 11:40 AM EDT [facility] Blood Venous blood specimen / Unknown Venipuncture / Unknown 02/10/2025 6:59 AM EDT 02/10/2025 9:24 AM EDT us Jenn Hu MD LAB BLOOD ORDERABLES Final Resul t Performing Organization Address [facility] Co de Phone Number [facility] [address] [place] [address], [place] [phone] * Thyroid stimulating hormone (02/10/2025 6:59 AM EDT) [facility] TSH 0.71 0.40 - 4.00 mcIU/mL LAB CHEMISTRY METHOD 02/10/2025 12:07 PM EDT [facility] Blood Venous blood specimen / Unknown Venipuncture / Unknown 02/10/2025 6:59 AM EDT 02/10/2025 9:24 AM EDT us Jenn Hu MD LAB BLOOD ORDERABLES Final Resul t Performing Organization Address City/[facility]/ZIP Co de Phone Number [facility] [address] [place] [address], [place] [phone] * (ABNORMAL) Basic metabolic panel (02/10/2025 6:59 AM EDT) Sodium 139 133 - 145 mmol/L LAB CHEMISTRY METHOD 02/10/2025 11:15 AM [facility] Potassium 3.6 3.5 - 5.5 mmol/L LAB CHEMISTRY METHOD 02/10/2025 11:15 AM [facility] Chloride 106 96 - 110 mmol/L LAB CHEMISTRY METHOD 02/10/2025 11:15 AM [facility] CO2 26 21 - 32 mmol/L LAB CHEMISTRY METHOD 02/10/2025 11:15 AM [facility] Anion Gap 7 3 - 11 LAB CHEMISTRY METHOD 02/10/2025 11:15 AM [facility] Glucose 84 70 - 100 mg/dL LAB CHEMISTRY METHOD 02/10/2025 11:15 AM [facility] BUN 6 5 - 25 mg/dL LAB CHEMISTRY METHOD 02/10/2025 11:15 AM [facility] Creatinine 0.61(L) 0.70 - 1.30 mg/dL LAB CHEMISTRY METHOD 02/10/2025 11:15 AM [facility] eGFR 108 >=60 mL/min/1. 73m2 LAB CHEMISTRY METHOD 02/10/2025 11:15 AM [facility] Comment:Calculation based on the Chronic Kidney Disease Epidemiology Collaboration (CKD-EPI) equation refit without adjustment for race. BUN/Creatinine Ratio 9.8 LAB CHEMISTRY METHOD 02/10/2025 11:15 AM [facility] Calcium 9.0 8.5 - 10.5 mg/dL LAB CHEMISTRY METHOD 02/10/2025 11:15 AM [facility] Blood Venous blood specimen / Unknown Venipuncture / Unknown 02/10/2025 6:59 AM EDT 02/10/2025 9:24 AM EDT Jenn Hu MD LAB BLOOD ORDERABLES Final Resul t [facility] [address] [place] [address], documented in this encounter Visit Diagnoses Diagnosis Urinary tract infection, site not specified documented in this encounter Care Teams Director Of Recruiting Relationship Specialty Start Date End Date Jenn Hu MD [address] [place] [address] [address] [place] [address] PCP - General Geriatric Medicine 02/01/25 documented as of this encounter
--- OUTSIDE RECORDS SUMMARY | 2025-04-04 17:32 | XMS_ITS | Encounter Summary ---
Author Organization [facility] Address [address] [place] [address] Care Team Providers Care Boat Deckhand Name Role Phone Brain Cyr DO Primary Care Provider [phone] Norma Rogel RN Unavailable Unavailable Encounter Details Date Type Department Care Team (Late st Contact Info) Description 01/19/2024 [facility]ill [facility] [address] [phone] Jed Pinon MD [address] [place] [address] [place] [address] Closed fracture of right ankle with routine [...] encounter documented in this encounter Care Teams Boat Deckhand Relationship Specialty Start Date End Date Brain Cyr DO PCP - General 07/14/18 Norma Rogel, LONI CT Registered Nurse 07/14/18 documented as of this encounter
--- OUTSIDE RECORDS SUMMARY | 2025-04-04 17:32 | XMS_ITS | Encounter Summary ---
Author Organization [facility] Address [address] [place] [address] Care Team Providers Care Federal Mediation Commissioner Name Role Phone Brain Cyr DO Primary Care Provider [phone] Norma Rogel RN Unavailable Unavailable Encounter Details Date Type Department Care Team (Late st Contact Info) Description 05/11/2023 Scanned Document [facility] [place] at [address] [address] Orthopedic Surgery, Scan Social History [...] on filedocumented in this encounter Care Teams Federal Mediation Commissioner Relationship Specialty Start Date End Date Brain Cyr DO PCP - General 07/14/18 Norma Rogel, RN CT Registered Nurse 07/14/18 documented as of this encounter
--- OUTSIDE RECORDS SUMMARY | 2025-04-04 17:32 | XMS_ITS | Encounter Summary ---
Author Organization [facility] Address [address] [place] [address] Care Team Providers Care Vulcan Crewmember Name Role Phone Brain Cyr DO Primary Care Provider [phone] Norma Rogel RN Unavailable Unavailable Reason for Visit * Reason Comments Medication Refill Encounter Details Date Type Department Care Team ([facility] st Contact Info) Description 12/26/2023 Refill [facility] [address] [address] Natan Senior PA [address] [place] [address] Closed fracture of right ankle with routine [...] encounter documented in this encounter Care Teams Vulcan Crewmember Relationship Specialty Start Date End Date Brain Cyr DO PCP - General 07/14/18 Norma Rogel, LONI CT Registered Nurse 07/14/18 documented as of this encounter
--- OUTSIDE RECORDS SUMMARY | 2025-04-04 17:32 | XMS_ITS | Clinical Summary ---
Author Organization [facility] Address [address] [place] [address] Care Team Providers Care Derrick Operator Name Role Phone Brain Cyr DO Primary Care Provider Norma Rogel RN Unavailable Unavailable Allergies No [...] Encounters Date Type Department Care Team Description 04/04/2025 Scanned Document [facility] [address] [address] Provider, Generic 03/31/2025 Scanned Document [facility] [address] [address] Provider, Generic 03/29/2025 Scanned Document [facility] [address] [address] Provider, Generic 03/28/2025 Scanned Document [facility] [address] [address] Provider, Generic 03/24/2025 2:30 PM EDT Procedure visit [facility] [address] [place] [address] [address] [place] [address] Venu Mantilla RN Encounter for Phoenix catheter removal (Primary Dx); Urinary retention 03/24/2025 8:00 AM EDT Procedure visit [facility] [address] [place] [address] [address] [place] [address] Venu Mantilla RN Encounter for Phoenix catheter removal (Primary Dx) 03/24/2025 Travel 03/23/2025 Scanned Document [facility] [address] [place] [address] Provider, Generic 03/22/2025 Scanned Document [facility] [address] [place] [address] Provider, Generic 03/21/2025 Scanned Document [facility] [address] [place] [address] Provider, Generic 03/17/2025 Scanned Document [facility] [address] [place] [address] Provider, Generic 03/15/2025 Scanned Document [facility] [address] [address] Provider, Generic 03/14/2025 Scanned Document [facility] [address] [place] [address] Provider, Generic 03/13/2025 Scanned Document [facility] [address] [place] [address] Provider, Generic 03/11/2025 Scanned Document [facility] [address] [address] Provider, Generic 03/10/2025 Scanned Document [facility] [address] [place] [address] Provider, Generic 03/08/2025 Scanned Document [facility] [address] [place] [address] Provider, Generic 03/07/2025 Scanned Document [facility] [address] [place] [address] Provider, Generic 03/06/2025 Scanned Document [facility] [address] [place] [address] Provider, Generic 03/04/2025 Scanned Document [facility] [address] [place] [address] Provider, Generic 03/03/2025 Scanned Document [facility] [address] [place] [address] Provider, Generic 03/02/2025 4:00 PM EDT Procedure visit [facility] [address] [place] [address], [place] [address] Keith Kumar LPN Benign prostatic hyperplasia with urinary retention (Primary Dx) 03/02/2025 10:00 AM EDT Procedure visit [facility] [address] [place] [phone] Keith Kumar LPN Encounter for Phoenix catheter removal (Primary Dx) 03/02/2025 Scanned Document [facility] [address] [place] [address] Provider, Generic 03/02/2025 Travel 02/28/2025 Scanned Document [facility] [address] [place] [address] Provider, Generic 02/27/2025 Scanned Document [facility] [address] [place] [address] Provider, Generic 02/21/2025 Scanned Document [facility] [address]90 [facility] [address] [place] [address], [place] [address] Provider, Generic 02/19/2025 Scanned Document [facility] [address] [place] [address] Provider, Generic 02/18/2025 Scanned Document [facility] [address] [place] [address] Provider, Generic 02/17/2025 Scanned Document [facility] [address] [place] [address] Provider, Generic 02/16/2025 1:30 PM EDT Clinical Support [facility] [address] [place] [phone] Rocio Amaral RN Benign prostatic hyperplasia with urinary retention (Primary Dx) 02/16/2025 Scanned Document [facility] [address] [place] [address] Provider, Generic 02/15/2025 7:30 AM EDT Office Visit [facility] [address] [place] [phone] Esthela Kaye APRN Benign prostatic hyperplasia with urinary retention (Primary Dx); Indwelling Phoenix catheter present 02/15/2025 Travel 01/09/2025 1:54 PM EDT - 01/10/2025 4:58 PM EDT Hospital Encounter [facility] [address] [place] [address] Alex Brar MD Lu, MD [...] op . Last drink 6 days ago. [facility] Utilities Answer Date Recorded In the past 12 months has th e [employer], gas, oil, or water company threatened to [...] any time in the past 12 m [facility], were you homeless or [...] , 07/14/2017, Additional history exists COVID-19 Vaccine (1 - season) 2025 Colonoscopy 11/25/2033 11/26/2023 Hepatitis B Vaccines Aged Out No long er eligible based on patient's age to complete this topic Medical Devices Implanted Type Area District Manager Primary Care Sales Device Identifier Shelf Expiration Date Model / Serial / Lot [id number] Cement Bone [employer]c R 40gm Grn - [id number] Implanted:Qty : 2 on 05/12/2019 by Reagan Deleon MD at [facility] Cement Right: Knee [employer] 07/29/2022 [id number] / / [id number] Shell Acetabular 54mm Hip Prim Ch Trlg Sterl - [id number] Implanted:Qty : 1 on 08/18/2018 by Reagan Deleon MD at [facility] Joint Prosthesis Right: Hip [employer] [id number] 05/31/2028 [id number] / / [id number] Liner Acetabular Trlg Std Neutral 6.3mm 50/52/54mm 32mm - [id number] Implanted:Qty : 1 on 08/18/2018 by Reagan Deleon MD at [facility] Joint Prosthesis Right: Hip [employer] [id number] 02/28/2023 [id number] / / [id number] Stem Femoral 124mm 12.5mm Prim Zm M/L Taper Tiv Por /14 50 - [id number] Implanted:Qty : 1 on 08/18/2018 by Reagan Deleon MD at [facility] Joint Prosthesis Right: Hip [employer] [id number] 02/29/2028 [id number] / / [id number] Head Femoral 0mm /14 Taper 32mm Hip Blx D Trlg It Contin - [id number] Implanted:Qty : 1 on 08/18/2018 by Reagan Deleon MD at [facility] Joint Prosthesis Right: Hip [employer] [id number] 02/29/2028 [id number] / / [id number] Restrictor Bncmnt 25mm Ace 16-21mm Hip Femoral Plug Sterl - [id number] Implanted:Qty : 1 on 05/12/2019 by Reagan Deleon MD at [facility] Joint Prosthesis Right: Knee [employer] - DIV S [id number] 03/08/2029 [id number] / / [id number] Component Femoral 8 Std Knee Right Crcte Rtn Cmnt Persona - [id number] Implanted:Qty : 1 on 05/12/2019 by Reagan Deleon MD at [facility] Joint Prosthesis Right: Knee [employer] [id number] 02/28/2029 [id number] / / [id number] Component Patellar 35mm Persona Alply Knee Lf - [id number] Implanted:Qty : 1 on 05/12/2019 by Reagan Deleon MD at [facility] Joint Prosthesis Right: Knee [employer] [id number] 10/29/2026 [id number] / / [id number] Baseplate Tibial Persona Ntr Tibia 5d F Knee Right Stem - [id number] Implanted:Qty : 1 on 05/12/2019 by Reagan Deleon MD at [facility] Joint Prosthesis Right: Knee [employer] [id number] 11/28/2028 [id number] / / [id number] Insert Articular 3-11 E-F 11mm Knee Right Crcte Rtn Polyethe - [id number] Implanted:Qty : 1 on 05/12/2019 by Reagan Deleon MD at [facility] Joint Prosthesis Right: Knee [employer] [id number] 11/28/2026 [id number] / / [id number] Screw Bone Acetabular Jarvis Trlg 40mm 6.5mm Slftp Sterl - [id number] Implanted:Qty : 1 on 08/18/2018 by Reagan Deleon MD at [facility] Screw Right: Hip [employer] [id number] 05/31/2028 [id number] / / [id number] Procedures Procedure Name Priority Date/Time Associated Diagnosis [...] is included. Pathologist [facility] Bladder Scan, Urine Volume 906 cc Urine 03/24/2025 2:41 PM EDT us Esthela Kaye APRN POCT ORDERABLES - IMAGING Final Result * (ABNORMAL) Complete Blood Count, with Differential (02/27/2025 10:25 AM EDT) Only the most recent of2 resultswithin the time period is included. [facility] White Blood Cell Count 8.8 3.8 - 10.8 Thousand/ uL [facility] Red Blood Cell Count 4.07(L) 4.20 - 5.80 Million/u L [facility] Hemoglobin 13.1(L) 13.2 - 17.1 g/dL [facility] Hematocrit 39.8 38.5 - 50.0 % [facility] MCV 97.8 80.0 - 100.0 fL [facility] MCH 32.2 27.0 - 33.0 pg [facility] MCHC 32.9 32.0 - 36.0 g/dL [facility] Comment: For adults, a slight decrease in the calculated MCHC value (in the range of 30 to 32 g/dL) is most likely not clinically significant; however, it should be interpreted with caution in correlation with other red cell parameters and the patient's clinical condition. RDW 11.9 11.0 - 15.0 % [facility] Platelet Count 292 140 - 400 Thousand/ uL [facility] MPV 9.9 7.5 - 12.5 fL [facility] Abs Neutrophils Auto 5,852 1,500 - 7,800 cells/uL [facility] Abs Lymphocytes Auto 1,874 850 - 3,900 cells/uL [facility] Monocytes Auto 625 200 - 950 cells/uL [facility] Abs Eosinophils Auto 405 15 - 500 cells/uL [facility] Abs Basophils Auto 44 0 - 200 cells/uL [facility] Neutrophils Auto 66.5 % [facility] Lymphocytes Auto 21.3 % [facility] Monocytes Auto 7.1 % [facility] Eosinophils Auto 4.6 % [facility] Basophils Auto 0.5 % [facility] Blood Blood specimen / Unknown 02/27/2025 10:25 AM EDT 02/27/2025 10:25 AM EDT Narrative [facility] - 02/28/2025 11:10 AM EDT FASTING:NO FASTING: NO us Esthela Kaye APRN LAB BLOOD ORDERABLES Final Result Performing Organization Address [facility] de Phone Number [facility] [address] [place] [address] * (ABNORMAL) Basic Metabolic Panel (02/27/2025 10:25 AM EDT) Glucose 145(H) 65 - 139 mg/dL [facility] Comment: Non-fasting reference interval Blood Urea Nitrogen (BUN) 9 7 - 25 mg/dL [facility] Creatinine 0.73 0.70 - 1.35 mg/dL [facility] Creatinine w/ eGFR 102 > OR = 60 mL/min/1. 73m2 [facility] BUN/Creatinine Ratio SEE NOTE: 6 - 22 (calc) [facility] Comment: Not Reported: BUN and Creatinine are within reference range. Sodium 141 135 - 146 mmol/L [facility] Potassium 3.7 3.5 - 5.3 mmol/L [facility] Chloride 107 98 - 110 mmol/L [facility] CO2 27 20 - 32 mmol/L [facility] Calcium 9.4 8.6 - 10.3 mg/dL [facility] Blood Blood specimen / Unknown 02/27/2025 10:25 AM EDT 02/27/2025 10:25 AM EDT Narrative [facility] - 02/28/2025 11:10 AM EDT FASTING:NO FASTING: NO Esthela Kaye APRN LAB BLOOD ORDERABLES Final Result Performing Organization Address [facility] Co de Phone Number [facility] [address] [place] [address] * XR Cervical spine 2 or 3 [...] anterolisthesis of C3 on C4. Izabella [facility] IMG DIAGNOSTIC IMAGING ORDLos RAMOS Final Result * [...] Critical finding has been communicated to Radiology Supervisor Pre Wave for provider notification via the Audience [employer] Findings Application on 01/09/2025 8:57 PM, Message ID [id number]. Narrative 01/09/2025 8:57 PM EDT EXAM: MRI [...] Critical finding has been communicated to Radiology Supervisor Pre Wave forprovider notification via the Audience Actionable FindingsApplication on 01/09/2025 8:57 PM, Message ID [id number]. us Alex Brar MD IMG MRI ORDERABLES [...] appear normal. Lung apices are clear. Specific jnbdt-kh-mijtz: C2-C3: No spinal canal stenosis. Severe facet [...] appear normal. Lung apices are clear. Specific ufbvk-wc-swzdk: C2-C3: No spinal canal stenosis. Severe facet [...] MRI of the cervical spine without contrast. Izbaella MARIEE [facility] CT ORDERABLES Final Res ult * Magnesium (01/09/2025 2:56 PM EDT) Pathologist [facility] Magnesium 2.0 1.6 - 2.7 mg/dL 01/09/2025 3:47 PM EDT [facility] Blood Blood specimen / Unknown 01/09/2025 2:56 PM EDT 01/09/2025 3:17 PM EDT Izabella MARIEE LAB BLOOD ORDERABLES Final Result [facility] [address] [place] [address], [facility] [address] [place] [address] * (ABNORMAL) Comprehensive Metabolic Panel (01/09/2025 2:56 PM EDT) Pathologist [facility] Glucose 235(H) 65 - 99 mg/dL 01/09/2025 3:47 PM EDT [facility] Comment:Fasting: <100 mg/dL, Non-Fasting: <200 mg/dL (ADA 2004) Blood Urea Nitrogen (BUN) 17 8 - 21 mg/dL 01/09/2025 3:47 PM EDT [facility] Creatinine 0.7 0.5 - 1.3 mg/dL 01/09/2025 3:47 PM EDT [facility] eGFR >90 >59 01/09/2025 3:47 PM EDT [facility] Comment:CKD-EPI (2020) in mL /min/1.73 sq meters. Sodium 144 136 - 145 mmol/L 01/09/2025 3:47 PM EDT [facility] Potassium 3.7 3.4 - 5.3 mmol/L 01/09/2025 3:47 PM EDT [facility] Chloride 104 98 - 107 mmol/L 01/09/2025 3:47 PM EDT [facility] CO2 22 22 - 33 mmol/L 01/09/2025 3:47 PM EDT [facility] Calcium 9.3 8.7 - 10.5 mg/dL 01/09/2025 3:47 PM EDT [facility] Alkaline Phosphatase 87 45 - 128 U/L 01/09/2025 3:47 PM EDT [facility] Aspartate Aminotrans (AST) 40 10 - 55 U/L 01/09/2025 3:47 PM EDT [facility] Comment:Specimen hemolyzed. Results may be artifactually elevated. Alanine Aminotrans (ALT) 32 10 - 55 U/L 01/09/2025 3:47 PM EDT [facility] Bilirubin, Total 0.5 0.2 - 1.0 mg/dL 01/09/2025 3:47 PM EDT [facility] Protein, Total 7.0 6.3 - 8.3 g/dL 01/09/2025 3:47 PM EDT [facility] Albumin 3.9 3.4 - 4.8 g/dL 01/09/2025 3:47 PM EDT [facility] BUN/Creatinine Ratio 24 10.0 - 25.0 Ratio 01/09/2025 3:47 PM EDT [facility] Globulin 3.1 1.5 - 3.9 g/dL 01/09/2025 3:47 PM EDT [facility] Albumin/Globulin Ratio 1.3 Ratio 01/09/2025 3:47 PM EDT [facility] Anion Gap 18(H) 7 - 17 01/09/2025 3:47 PM EDT [facility] Blood Blood specimen / Unknown 01/09/2025 2:56 PM EDT 01/09/2025 3:17 PM EDT [facility] [place] LAB BLOOD ORDERABLES Final Result [facility] [address] [place] [address], [facility] [address] [place] [address] * Lyme IgG/IgM with Reflex to ISABELLE (01/09/2025 2:53 PM EDT) [facility] Lyme IgG/IgM Antibody Screen Negative Negative 01/11/2025 10:42 AM EDT [facility] Comment: No antibodies to Borrelia burgdorferi detected. Consider alternative diagnosis. If the patient presents with signs/symptoms consistent with Lyme disease (B. burgdorferi) for <30 days, consider collecting and testing a second sample two to four weeks later. Blood Blood specimen / Unknown 01/09/2025 2:53 PM EDT 01/09/2025 3:17 PM EDT [place] LAB BLOOD ORDERABLES Final Result [facility] [address] * HX GASTROENTEROLOGY COLONOSCOPY-SCAN (11/26/2023 11:14 AM EDT) Demetrius Gonzalez MD HX AMB PROCEDURES Final Resu lt from Last 3 Months or Most Recently Relevant to Health Maintenance Insurance 1[employer]ib[employer] INDIVIDUAL EXCHANGE PPO [employer] INDIVIDUAL EXCHANGE PPO 1[employer] INDIVIDUAL EXCHANGE PPO Advance Directives * Full [...] 3:19 PM 05/12/2019 9:17 AM Care Teams Derrick Operator Relationship Specialty Start Date End Date Brain Cyr DO PCP - General 07/14/18 Norma Rogel, LONI [place] Registered Nurse 07/14/18
--- OUTSIDE RECORDS SUMMARY | 2025-04-04 17:32 | XMS_ITS | Encounter Summary ---
Author Organization [facility] Address [address] [place] [address] Care Team Providers Care Operations Trainer Name Role Phone Brain Cyr DO Primary Care Provider [phone] Norma Rogel RN Unavailable Unavailable Encounter Details Date Type Department Care Team (Late st Contact Info) Description 03/02/2025 Scanned Document [facility] [address] [facility] [address] [place] [address] Provider, Generic Social History Tobacco [...] Recorded In the past 12 months has [employer], oil, or water [employer] threatened to shut off services in [...] any time in the past 12 m [facility], were you homeless or living in a [...] on filedocumented in this encounter Care Teams Operations Trainer Relationship Specialty Start Date End Date Brain Cyr DO PCP - General 07/14/18 Norma Rogel, LONI [place] Registered Nurse 07/14/18 documented as of this encounter
--- OUTSIDE RECORDS SUMMARY | 2025-04-04 17:32 | XMS_ITS | Encounter Summary ---
Author Organization [facility] Address [address] [place] [address] Care Team Providers Care Wood Getter Name Role Phone Brain Cyr DO Primary Care Provider [phone] Norma Rogel RN Unavailable Unavailable Encounter Details Date Type Department Care Team (Late st Contact Info) Description 03/28/2025 Scanned Document [facility] [address] [facility] [address] [place] [address] Provider, Generic Social History Tobacco Use Types Packs/Day Years Used Date Smoking Tobacco: Former Cigarettes 1 10 0 07/14/1989 - 07/14/1999 Smokeless Tobacco: Never Alcohol Use Standard Drinks/Week Comments Yes 14 (1 standard drink = 0.6 oz pure alcohol) 2 vy, 2 shots liquor nightly, will stop pre op . Last drink 6 days ago. [facility] Utilities Answer Date Recorded In the past 12 months has [employer], [employer], oil, or water [employer] threatened to shut off services in your [...] on filedocumented in this encounter Care Teams Wood Getter Relationship Specialty Start Date End Date Brain Cyr DO PCP - General 07/14/18 Norma Rogel, LONI [place] Registered Nurse 07/14/18 documented as of this encounter
--- OUTSIDE RECORDS SUMMARY | 2025-04-04 17:32 | XMS_ITS | Clinical Summary ---
Author Organization [facility] Address [address] [place] [address] Phone Care Team Providers Care Cork Tipper Name Role Phone Jenn Hu MD Primary Care Provider [phone] Allergies No known active allergies Medications hydroCHLOROthiaz herlinda (MICROZIDE) 12.5 mg capsule Take 1 capsule (12.5 mg total) by mouth 1 (one) time each day. Active apixaban (ELIQUIS) 5 mg tabletIndication s:Deep vein thrombosis (DVT) of other vein of lower extremity, unspecified chronicity, unspecified laterality (CMS/[facility] V24, CMS/[facility] V28) Take 2 tablets (10 mg total) [...] [facility] [place] [facility] [address] [facility] [place] [address] Jenn Hu MD Vitamin D deficiency, unspecified; Cervicalgia; Weakness; Essential (primary) hypertension 02/12/2025 Lab Requisition [facility] Lab [address] [place] [phone] Jenn Hu MD Vitamin D deficiency, unspecified; Cervicalgia; Weakness; Essential (primary) hypertension 02/10/2025 Lab Requisition [facility] Lab [address] [place] [phone] Jenn Hu MD Urinary tract infection, site not specified 02/08/2025 Telephone [facility] Hematology Oncology [address] [place] [phone] Yon Delacruz MD 02/05/2025 Lab Requisition [facility] Lab [address] [place] [phone] Jenn Hu MD Chronic kidney disease, unspecified 02/04/2025 3:15 PM EDT - 02/09/2025 1:23 PM EDT Hospital Encounter [facility] Urology Unit [address] [place] [phone] Frances Edward MD Wyman, Tim, MD Ishtiaq, Rizwan, MD Alam, Aroosa, MD Nasser, Nada S, MD Kela, Kashyap Devendrabhai, MD Lower extremity edema (Primary Dx); Positive D dimer; Urinary retention; Deep vein thrombosis (DVT) of other vein of lower extremity, unspecified chronicity, unspecified laterality ([facility] V24, [facility] V28) Discharge Disposition: [facility] Facility 02/04/2025 Lab Requisition [facility] Lab [address] [place] [phone] Jenn Hu MD Chronic kidney disease, unspecified 02/03/2025 Lab Requisition [facility] Lab [address] [place] [phone] Jenn Hu MD Vitamin D deficiency, unspecified; Cervicalgia; Weakness; Essential (primary) hypertension 02/01/[address] [facility] [address] [facility] [place] [address] Jenn Hu MD Essential (primary) hypertension 01/28/2025 4:40 AM EDT - 01/31/2025 4:18 PM EDT Emergency [facility] Emergency [address] [place] [phone] Augustin Henriquez MD Muhoozi, Bannet, MD [place], [...] of4 resultswithin the time period is included. [facility] WBC 8.8 4.8 - 10.8 K/mcL LAB HEMETOLOGY METHOD 02/13/2025 11:08 AM EDT [facility] RBC 3.30(L) 4.50 - 5.50 M/mcL LAB HEMETOLOGY METHOD 02/13/2025 11:08 AM EDT [facility] Hemoglobin 11.2(L) 13.5 - 17.5 g/dL LAB HEMETOLOGY METHOD 02/13/2025 11:08 AM EDT [facility] Hematocrit 32.1(L) 42.0 - 54.0 % LAB HEMETOLOGY METHOD 02/13/2025 11:08 AM EDT [facility] MCV 96.1 79.0 - 98.0 FL LAB HEMETOLOGY METHOD 02/13/2025 11:08 AM EDT [facility] MCH 33.5(H) 27.0 - 32.0 pcg LAB HEMETOLOGY METHOD 02/13/2025 11:08 AM EDT [facility] MCHC 34.9 32.0 - 37.0 g/dL LAB HEMETOLOGY METHOD 02/13/2025 11:08 AM EDT [facility] RDW 11.6 11.0 - 15.0 % LAB HEMETOLOGY METHOD 02/13/2025 11:08 AM EDT [facility] Platelets 337 130 - 400 K/mcL LAB HEMETOLOGY METHOD 02/13/2025 11:08 AM EDT [facility] MPV 9.8 7.0 - 11.0 FL LAB HEMETOLOGY METHOD 02/13/2025 11:08 AM EDT [facility] NRBC 0.0 <1.0 % LAB HEMETOLOGY METHOD 02/13/2025 11:08 AM EDT [facility] NRBC Absolute 0.00 <0.10 K/mcL LAB HEMETOLOGY METHOD 02/13[facility]2025 [facility] Blood Venous blood specimen / Unknown Venipuncture / Unknown 02/13/2025 5:40 AM EDT 02/13/2025 10:41 AM EDT us Jenn Hu MD LAB BLOOD ORDERABLES Final Resul t [facility] [address] [place] [address], * (ABNORMAL) Basic metabolic panel (02/13/2025 5:40 AM EDT) Only the most recent of6 resultswithin the time period is included. [facility] Sodium 142 133 - 145 mmol/L LAB CHEMISTRY METHOD 02/13/2025 2:24 PM [facility] Potassium 3.2(L) 3.5 - 5.5 mmol/L LAB CHEMISTRY METHOD 02/13/2025 2:24 PM [facility] Chloride 109 96 - 110 mmol/L LAB CHEMISTRY METHOD 02/13/2025 2:24 PM [facility] CO2 24 21 - 32 mmol/L LAB CHEMISTRY METHOD 02/13/2025 2:24 PM [facility] Anion Gap 9 3 - 11 LAB CHEMISTRY METHOD 02/13/2025 2:24 PM [facility] Glucose 68(L) 70 - 100 mg/dL LAB CHEMISTRY METHOD 02/13/2025 2:24 PM [facility] BUN 5 5 - 25 mg/dL LAB CHEMISTRY METHOD 02/13/2025 2:24 PM [facility] Creatinine 0.54(L) 0.70 - 1.30 mg/dL LAB CHEMISTRY METHOD 02/13/2025 2:24 PM [facility] eGFR 112 >=60 mL/min/1. 73m2 LAB CHEMISTRY METHOD 02/13/2025 2:24 PM [facility] Comment:Calculation based on the Chronic Kidney Disease Epidemiology Collaboration (CKD-EPI) equation refit without adjustment for race. BUN/Creatinine Ratio 9.3 LAB CHEMISTRY METHOD 02/13/2025 2:24 PM [facility] Calcium 8.9 8.5 - 10.5 mg/dL LAB CHEMISTRY METHOD 02/13/2025 2:24 PM [facility] Blood Venous blood specimen / Unknown Venipuncture / Unknown 02/13/2025 5:40 AM EDT 02/13/2025 10:40 AM EDT Jenn Hu MD LAB BLOOD ORDERABLES Final Resul t [facility] [address] [place] [address], [place] [phone] * Vitamin B12 and folate (02/10/2025 6:59 AM EDT) [facility] Vitamin B-12 311 250 - 900 pcg/mL LAB CHEMISTRY METHOD 02/10/2025 11:40 AM EDT [facility] Folate 2.9 2.8 - 17.0 ng/ml LAB CHEMISTRY METHOD 02/10/2025 11:40 AM EDT [facility] Blood Venous blood specimen / Unknown Venipuncture / Unknown 02/10/2025 6:59 AM EDT 02/10/2025 9:24 AM EDT Jenn Hu MD LAB BLOOD ORDERABLES Final Resul t Performing Organization Address [facility]/ZIP Co de Phone Number [facility] [address] [place] [address], [place] [phone] * (ABNORMAL) CBC auto differential (02/10/2025 6:59 AM EDT) Only the most recent of5 resultswithin the time period is included. [facility] WBC 11.7(H) 4.8 - 10.8 K/mcL LAB HEMETOLOGY METHOD 02/10/2025 10:44 AM EDT [facility] RBC 3.40(L) 4.50 - 5.50 M/mcL LAB HEMETOLOGY METHOD 02/10/2025 10:44 AM EDT [facility] Hemoglobin 11.3(L) 13.5 - 17.5 g/dL LAB HEMETOLOGY METHOD 02/10/2025 10:44 AM EDT [facility] Hematocrit 33.3(L) 42.0 - 54.0 % LAB HEMETOLOGY METHOD 02/10/2025 10:44 AM EDT [facility] MCV 97.4 79.0 - 98.0 FL LAB HEMETOLOGY METHOD 02/10/2025 10:44 AM [facility] MCH 33.0(H) 27.0 - 32.0 pcg LAB HEMETOLOGY METHOD 02/10/2025 10:44 AM [facility] MCHC 33.9 32.0 - 37.0 g/dL LAB HEMETOLOGY METHOD 02/10/2025 10:44 AM [facility] RDW 11.6 11.0 - 15.0 % LAB HEMETOLOGY METHOD 02/10/2025 10:44 AM [facility] Platelets 312 130 - 400 K/mcL LAB HEMETOLOGY METHOD 02/10/2025 10:44 AM [facility] MPV 10.1 7.0 - 11.0 FL LAB HEMETOLOGY METHOD 02/10/2025 10:44 AM [facility] NRBC 0.0 <1.0 % LAB HEMETOLOGY METHOD 02/10/2025 10:44 AM [facility] NRBC Absolute 0.00 <0.10 K/mcL LAB HEMETOLOGY METHOD 02/10/2025 10:44 AM [facility] Neutrophils Relative 72.4 % LAB HEMETOLOGY METHOD 02/10/2025 10:44 AM [facility] Lymphocytes Relative 15.3 % LAB HEMETOLOGY METHOD 02/10/2025 10:44 AM [facility] Monocytes Relative 7.8 % LAB HEMETOLOGY METHOD 02/10/2025 10:44 AM [facility] Eosinophils Relative 2.7 % LAB HEMETOLOGY METHOD 02/10/2025 10:44 AM [facility] Basophils Relative 0.3 % LAB HEMETOLOGY METHOD 02/10/2025 10:44 AM [facility] Immature Granulocytes Relative 1.5 % LAB HEMETOLOGY METHOD 02/10/2025 10:44 AM EDT [facility] Neutrophils Absolute 8.46(H) 1.50 - 7.00 K/[facility] LAB HEMETOLOGY METHOD 02/10/2025 10:44 AM EDT [facility] Lymphocytes Absolute 1.79 1.00 - 5.00 K/mcL LAB HEMETOLOGY METHOD 02/10/2025 10:44 AM EDT [facility] Monocytes Absolute 0.91 0.20 - 1.00 K/[facility] LAB HEMETOLOGY METHOD 02/10/2025 10:44 AM EDT [facility] Eosinophils Absolute 0.32 0.00 - 0.50 K/[facility] LAB HEMETOLOGY METHOD 02/10/2025 10:44 AM EDT [facility] Basophils Absolute 0.04 0.00 - 0.20 K/mcL LAB HEMETOLOGY METHOD 02/10/2025 10:44 AM EDT [facility] Immature Granulocytes Absolute 0.18(H) 0.00 - 0.03 K/mcL LAB HEMETOLOGY METHOD 02/10/2025 10:44 AM EDT [facility] Blood Venous blood specimen / Unknown Venipuncture / Unknown 02/10/2025 6:59 AM EDT 02/10/2025 9:24 AM EDT us Jenn Hu MD LAB BLOOD ORDERABLES Final Resul t [facility] [address] [place] [address], * Thyroid stimulating hormone (02/10/2025 6:59 AM EDT) TSH 0.71 0.40 - 4.00 mcIU/mL LAB CHEMISTRY METHOD 02/10/2025 12:07 PM EDT [facility] Blood Venous blood specimen / Unknown Venipuncture / Unknown 02/10/2025 6:59 AM EDT 02/10/2025 9:24 AM EDT Jenn Hu MD LAB BLOOD ORDERABLES Final Resul t Performing Organization Address [facility] de Phone Number [facility] [address] [place] [address], * ECG-Outside (02/10/2025) Provider Onbase ECG ORDERABLES Final Result * (ABNORMAL) C-reactive protein (02/08/2025 5:31 AM EDT) Only the most recent of2 resultswithin the time period is included. C-Reactive Protein 11.10(H) <=0.50 mg/dL LAB CHEMISTRY METHOD 02/08/2025 7:30 AM EDT [facility] Blood Venous blood specimen / Unknown Venipuncture / Unknown 02/08/2025 5:31 AM EDT 02/08/2025 6:21 AM EDT Rosario Lees MD LAB BLOOD ORDERABLES Final Resu lt Performing Organization Address [facility] de Phone Number [facility] [address] [place] [address], * Phosphorus (02/08/2025 5:31 AM EDT) Only the most recent of2 resultswithin the time period is included. Phosphorus 4.5 2.5 - 4.5 mg/dL LAB CHEMISTRY METHOD 02/08/2025 8:00 AM EDT [facility] Blood Venous blood specimen / Unknown Venipuncture / Unknown 02/08/2025 5:31 AM EDT 02/08/2025 6:21 AM EDT us Alon Gonsalez MD LAB BLOOD ORDERABLE S Final Result Performing Organization Address City/[facility]/ZIP Co de Phone Number [facility] [address] [place] [address], [place] [phone] * (ABNORMAL) Magnesium (02/08/2025 5:31 AM EDT) Only the most recent of4 resultswithin the time period is included. Pathologist [facility] Magnesium 1.8(L) 1.9 - 2.6 mg/dL LAB CHEMISTRY METHOD 02/08/2025 8:00 AM EDT [facility] Blood Venous blood specimen / Unknown Venipuncture / Unknown 02/08/2025 5:31 AM EDT 02/08/2025 6:21 AM EDT us Alon Gonsalez MD LAB BLOOD ORDERABLE S Final Result Performing Organization Address [facility] Co de Phone Number [facility] [address] [place] [address], [place] [phone] * (ABNORMAL) D-Dimer (02/08/2025 5:30 AM EDT) Only the most recent of4 resultswithin the time period is included. Pathologist [facility] D-Dimer, Quant (D-DU) 2,207(H) <=230 ng/mL DDU LAB COAGULATION METHOD 02/08/2025 7:12 AM EDT [facility] Blood Venous blood specimen / Unknown Venipuncture / Unknown 02/08/2025 5:30 AM EDT 02/08/2025 6:21 AM EDT Narrative [facility] - 02/08/2025 7:12 AM EDT D-Dimer <230 ng/mL (D-Dimer units) is the threshold for exclusion of DVT/PE. D-Dimer may be elevated in: Critically ill, severely infected, trauma patients, DIC, acute CVA, acute IL, unstable angina, AF, old age, , and smoking. D-Dimer may be decreased with: Initiation of heparin therapy and oral anticoagulants. us Rosario Lees MD LAB BLOOD ORDERABLES Final Resu lt Performing Organization Address [facility] Co de Phone Number [facility] [address] [place] [address], [place] [phone] * (ABNORMAL) Activated Partial Thromboplastin Time - STAT (02/07/2025 4:40 PM EDT) Only the most recent of2 resultswithin the time period is included. aPTT 139.1(HH) 24.1 - 39.3 sec LAB COAGULATION METHOD 02/07/2025 5:24 PM EDT [facility] Blood Venous blood specimen / Unknown Venipuncture / Unknown 02/07/2025 4:40 PM EDT 02/07/2025 4:51 PM EDT us Rosairo Lees MD LAB BLOOD ORDERABLES Final Resu lt Performing Organization Address [facility]/ZIP Co de Phone Number [facility] [address] [place] [address], [place] [phone] * Anti-Xa - Every 6 Hours (02/07/2025 12:03 PM EDT) Only the most recent of13 resultswithin the time period is included. Heparin Anti-Xa 0.68 0.30 - 0.70 I Unit/mL LAB COAGULATION METHOD 02/07/2025 12:25 PM EDT [facility] Blood Venous blood specimen / Unknown Venipuncture / Unknown 02/07/2025 12:03 PM EDT 02/07/2025 12:11 PM EDT Narrative [facility] - 02/07/2025 12:25 PM EDT Therapeutic range listed is for Unfractionated Heparin. LMW Heparin therapeutic range: 0.50-1.20 IU/mL us Naeem Daniels MD LAB BLOOD ORDERABLES Final Res ult [facility] [address] [place] [address], [place] [phone] * (ABNORMAL) TRANSTHORACIC ECHOCARDIOGRAM (TTE) COMPLETE W/ CONTRAST (02/07/2025 10:37 AM EDT) Left Atrium Minor [place] 6.0 cm CV PACS Left Atrium Major [place] 6.1 cm CV PACS LA Area Sys [...] - 102 g/m2 CV PACS MV [place] 5.6 m/s2 CV PACS MV PHT 41 [...] S' 18 cm/s CV PACS RA Major [place] 5.3 cm CV PACS RA Major [place] Index 2.6 2.1 - 2.7 cm/m2 CV [...] of2 resultswithin the time period is included. [facility] High Sensitivity Troponin I 22 <=79 ng/L LAB CHEMISTRY METHOD 02/07/2025 7:49 AM EDT [facility] Blood Venous blood specimen / Unknown Venipuncture / Unknown 02/07/2025 6:31 AM EDT 02/07/2025 7:14 AM EDT Narrative [facility] - 02/07/2025 7:49 AM EDT High levels of biotin in samples may falsely decrease hsTroponin values. Use caution when interpreting hsTroponin results in patients taking biotin who exhibit renal impairment (eGFR <60) or in patients taking more than 20 mg/day of biotin. us Rosario Lees MD LAB BLOOD ORDERABLES Final Resu lt Performing Organization Address City/[facility] Co de Phone Number [facility] [address] [place] [address], [place] [phone] * Thyroid stimulating hormone with reflex to free t4 and free t3 (02/07/2025 6:31 AM EDT) [facility] TSH 1.11 0.40 - 4.00 mcIU/mL LAB CHEMISTRY METHOD 02/07/2025 9:41 AM EDT [facility] Blood Venous blood specimen / Unknown Venipuncture / Unknown 02/07/2025 6:31 AM EDT 02/07/2025 7:14 AM EDT us Rosario Lees MD LAB BLOOD ORDERABLES Final Resu lt Performing Organization Address City/State/[facility] de Phone Number [facility] [address] [place] [address], * Prostate specific antigen diagnostic (02/07/2025 6:31 AM EDT) PSA 3.83 0.00 - 4.00 ng/mL LAB CHEMISTRY METHOD 02/07/2025 9:26 AM EDT [facility] Blood Venous blood specimen / Unknown Venipuncture / Unknown 02/07/2025 6:31 AM EDT 02/07/2025 7:14 AM EDT Narrative [facility] - 02/07/2025 9:26 AM EDT The Siemens Advia Tablusaur Chemiluminescent Immunoassay is used. Results obtained with different assay methods or kits cannot be used interchangeably. Results cannot be interpreted as absolute evidence of the presence or absence of malignant disease. us Rosario Lees MD LAB BLOOD ORDERABLES Final Resu lt Performing Organization Address [facility] de Phone Number [facility] [address] [place] [address], * (ABNORMAL) Prothrombin time with INR (02/07/2025 6:31 AM EDT) Only the most recent of2 resultswithin the time period is included. Protime 16.0(H) 10.6 - 13.9 sec LAB COAGULATION METHOD 02/07/2025 7:49 AM EDT [facility] INR 1.3 LAB COAGULATION METHOD 02/07/2025 7:49 AM EDT [facility] Blood Venous blood specimen / Unknown Venipuncture / Unknown 02/07/2025 6:31 AM EDT 02/07/2025 7:15 AM EDT us Rosario Lees MD LAB BLOOD ORDERABLES Final Resu Performing Organization Address [facility]/State/ZIP Co de Phone Number [facility] [address] [place] [address], * Hemoglobin A1c (02/07/2025 6:31 AM EDT) [facility] Hemoglobin A1C 4.5 <6.5 % LAB CHEMISTRY METHOD 02/07/2025 9:23 AM EDT [facility] Mean Bld Glu Estim. 82 mg/dL LAB CHEMISTRY METHOD 02/07/2025 9:23 AM EDT [facility] Blood Venous blood specimen / Unknown Venipuncture / Unknown 02/07/2025 6:31 AM EDT 02/07/2025 7:15 AM EDT us Rosario Lees MD LAB BLOOD ORDERABLES Final Resu lt Performing Organization Address City/[facility]/ZIP Co de Phone Number [facility] [address] [place] [address], * Vitamin B12 (02/07/2025 6:31 AM EDT) [facility] Vitamin B-12 345 250 - 900 pcg/mL LAB CHEMISTRY METHOD 02/07/2025 8:34 AM EDT [facility] Blood Venous blood specimen / Unknown Venipuncture / Unknown 02/07/2025 6:31 AM EDT 02/07/2025 7:14 AM EDT us Rosario Lees MD LAB BLOOD ORDERABLES Final Resu lt [facility] [address] [place] [address], [place] [phone] * (ABNORMAL) Comprehensive metabolic panel (02/07/2025 6:31 AM EDT) Only the most recent of3 resultswithin the time period is included. [facility] Sodium 138 133 - 145 mmol/L LAB CHEMISTRY METHOD 02/07/2025 8:11 AM [facility] Potassium 3.6 3.5 - 5.5 mmol/L LAB CHEMISTRY METHOD 02/07/2025 8:11 AM [facility] Chloride 105 96 - 110 mmol/L LAB CHEMISTRY METHOD 02/07/2025 8:11 AM [facility] CO2 27 21 - 32 mmol/L LAB CHEMISTRY METHOD 02/07/2025 8:11 AM [facility] Anion Gap 6 3 - 11 LAB CHEMISTRY METHOD 02/07/2025 8:11 AM [facility] Glucose 99 70 - 100 mg/dL LAB CHEMISTRY METHOD 02/07/2025 8:11 AM [facility] BUN 8 5 - 25 mg/dL LAB CHEMISTRY METHOD 02/07/2025 8:11 AM [facility] Creatinine 0.55(L) 0.70 - 1.30 mg/dL LAB CHEMISTRY METHOD 02/07/2025 8:11 AM [facility] eGFR 111 >=60 mL/min/1. 73m2 LAB CHEMISTRY METHOD 02/07/2025 8:11 AM [facility] Comment:Calculation based on the Chronic Kidney Disease Epidemiology Collaboration (CKD-EPI) equation refit without adjustment for race. BUN/Creatinine Ratio 14.5 LAB CHEMISTRY METHOD 02/07/2025 8:11 AM [facility] Calcium 8.7 8.5 - 10.5 mg/dL LAB CHEMISTRY METHOD 02/07/2025 8:11 AM [facility] AST (SGOT) 16 10 - 42 unit/L LAB CHEMISTRY METHOD 02/07/2025 8:11 AM [facility] ALT (SGPT) 12 10 - 60 unit/L LAB CHEMISTRY METHOD 02/07/2025 8:11 AM [facility] Alkaline Phosphatase 84 42 - 121 unit/L LAB CHEMISTRY METHOD 02/07/2025 8:11 AM EDT [facility] Total Protein 6.2 6.0 - 8.0 g/dL LAB CHEMISTRY METHOD 02/07/2025 8:11 AM EDT [facility] Albumin 2.8(L) 3.2 - 5.0 g/dL LAB CHEMISTRY METHOD 02/07/2025 8:11 AM EDT [facility] Total Bilirubin 0.8 0.0 - 1.4 mg/dL LAB CHEMISTRY METHOD 02/07/2025 8:11 AM EDT [facility] Blood Venous blood specimen / Unknown Venipuncture / Unknown 02/07/2025 6:31 AM EDT 02/07/2025 7:14 AM EDT Rosario Lees MD LAB BLOOD ORDERABLES Final Resu lt [facility] [address] [place] [address], * Respiratory virus panel molecular study (02/07/2025 12:37 AM EDT) Pathologist [facility] Adenovirus Detection by PCR Not Detected Not Detected LAB MICROBIOLOGY METHOD 02/07/2025 1:47 AM EDT [facility] Influenza A PCR Not Detected Not Detected LAB MICROBIOLOGY METHOD 02/07/2025 1:47 AM EDT [facility] Influenza B PCR Not Detected Not Detected LAB MICROBIOLOGY METHOD 02/07/2025 1:47 AM EDT [facility] Coronavirus 229E Not Detected Not Detected LAB MICROBIOLOGY METHOD 02/07/2025 1:47 AM EDT [facility] Coronavirus HKU1 Not Detected Not Detected LAB MICROBIOLOGY METHOD 02/07/2025 1:47 AM EDT [facility] Coronavirus OC43 Not Detected Not Detected LAB MICROBIOLOGY METHOD 02/07/2025 1:47 AM EDT [facility] Coronavirus NL63 Not Detected Not Detected LAB MICROBIOLOGY METHOD 02/07/2025 1:47 AM EDT [facility] Parainfluenza Virus 1 Not Detected Not Detected LAB MICROBIOLOGY METHOD 02/07/2025 1:47 AM EDT [facility] Parainfluenza Virus 2 Not Detected Not Detected LAB MICROBIOLOGY METHOD 02/07/2025 1:47 AM EDT [facility] Parainfluenza Virus 3 Not Detected Not Detected LAB MICROBIOLOGY METHOD 02/07/2025 1:47 AM EDT [facility] Parainfluenza Virus 4 Not Detected Not Detected LAB MICROBIOLOGY METHOD 02/07/2025 1:47 AM EDT [facility] RSV PCR Not Detected Not Detected LAB MICROBIOLOGY METHOD 02/07/2025 1:47 AM EDT [facility] Human Metapneumovirus A and B Not Detected Not Detected LAB MICROBIOLOGY METHOD 02/07/2025 1:47 AM EDT [facility] Rhinovirus/Entero virus Not Detected Not Detected LAB MICROBIOLOGY METHOD 02/07/2025 1:47 AM EDT [facility] Bordetella pertussis Not Detected Not Detected LAB MICROBIOLOGY METHOD 02/07/2025 1:47 AM EDT [facility] Bordetella parapertussis Not Detected Not Detected LAB MICROBIOLOGY METHOD 02/07/2025 1:47 AM EDT [facility] Mycoplasma pneumo by PCR Not Detected Not Detected LAB MICROBIOLOGY METHOD 02/07/2025 1:47 AM EDT [facility] Chlamydia pneumoniae Not Detected Not Detected LAB MICROBIOLOGY METHOD 02/07/2025 1:47 AM EDT [facility] SARS COV-2 Not Detected Not Detected LAB MICROBIOLOGY METHOD 02/07/2025 1:47 AM EDT [facility] Swab Nasopharyngeal structure / Unknown Non-blood Collection / Unknown 02/07/2025 12:37 AM EDT 02/07/2025 12:47 AM EDT Narrative [facility] ([facility]) [facility] - 02/07/2025 1:47 AM EDT Testing was performed using the [employer] Respiratory Pathogen PCR Assay. All results must [...] MICROBIOLOGY - GENERAL ORDE RICHARD Final Result [facility]) [facility] [address] [place] [address], * Vascular US duplex lower extremity venous [...] Signed Date: 02/06/2025 11:50 ET Workstation ID: [id number] Transcribed By: Self Edit Transcribed Date: 02/06/2025 11:39 ET Narrative 02/06/2025 11:50 AM EDT INDICATION: Shortness of breath FINDINGS: Perfusion only scan was obtained. 5.2 mCi of technetium 99 M MAA intravenously for the perfusion portion with imaging obtained in different positions including anterior, posterior, GREEK, HURLEY, LPO and HURLEY views. Relevant studies: [...] imaging obtained in different positions including anterior,posterior, GREEK, HURLEY, LPO and HURLEY views. Relevant studies: [...] Signed Date: 02/06/2025 11:50 ET Workstation ID: [id number] Transcribed By: Self Edit Transcribed Date: 02/06/2025 11:39 ET Naeem Daniels MD IMG NM PROCEDURES Final Result * SST tube (02/06/2025 6:12 AM EDT) Extra Tube Hold for add-ons. 02/06/2025 8:01 AM EDT [facility] Comment:Auto resulted. Blood Venous blood specimen / Unknown Venipuncture / Unknown 02/06/2025 6:12 AM EDT 02/06/2025 6:20 AM EDT us Rosario Lees MD LAB BLOOD ORDERABLES Final Resu lt [facility] [address] [place] [address], [place] [phone] * Lavender tube (02/06/2025 6:12 AM EDT) Only the most recent of2 resultswithin the time period is included. Extra Tube Hold for add-ons. 02/06/2025 8:01 AM EDT [facility] Comment:Auto resulted. Blood Venous blood specimen / Unknown Venipuncture / Unknown 02/06/2025 6:12 AM EDT 02/06/2025 6:20 AM EDT us Rosario Lees MD LAB BLOOD ORDERABLES Final Resu lt Performing Organization Address [facility]/ZIP Co de Phone Number [facility] [address] [place] [address], [place] [phone] * (ABNORMAL) Creatine kinase (02/06/2025 6:12 AM EDT) Total CK 14(L) 22 - 269 unit/L LAB CHEMISTRY METHOD 02/06/2025 10:33 AM EDT [facility] Comment:Results verified by repeat testing Blood Venous blood specimen / Unknown Venipuncture / Unknown 02/06/2025 6:12 AM EDT 02/06/2025 6:20 AM EDT us Rosario Lees MD LAB BLOOD ORDERABLES Final Resu lt Performing Organization Address [facility] de Phone Number [facility] [address] [place] [address], [place] [phone] * Potassium (02/05/2025 12:09 PM EDT) Pathologist [facility] Potassium 3.8 3.5 - 5.5 mmol/L LAB CHEMISTRY METHOD 02/05/2025 12:38 PM EDT [facility] Blood Venous blood specimen / Unknown Venipuncture / Unknown 02/05/2025 12:09 PM EDT 02/05/2025 12:16 PM EDT us Richie Cerna MD LAB BLOOD ORDERABLES Final Resul t Performing Organization Address City/[facility]/ZIP Co de Phone Number [facility] [address] [place] [address], [place] [phone] * CT Chest/Abdomen/Pelvis wo Contrast (02/04/2025 6:00 [...] adenopathy. Abdominal aorta is normal caliber with [id number] calcific athero sclerosis. Bowel loops reveal no [...] adenopathy. Abdominal aorta is normal caliber with [id number] calcific athero sclerosis. Bowel loops reveal no [...] natriuretic peptide (02/04/2025 4:32 PM EDT) Pathologist [facility] BNP 180(H) <=100 pcg/mL LAB CHEMISTRY METHOD 02/04/2025 5:32 PM EDT [facility] Blood Venous blood specimen / Unknown Venipuncture / Unknown 02/04/2025 4:32 PM EDT 02/04/2025 4:54 PM EDT Frances Edward MD LAB BLOOD ORDERABLES Final R esult [facility] [address] [place] [address], * (ABNORMAL) Urinalysis with reflex microscopic (02/04/2025 4:13 PM EDT) [facility] Specific [place] Urine 1.010 1.003 - 1.030 LAB URINALYSIS - AUTOMATED METHOD 02/04/2025 5:08 PM [facility] pH, Urine 5.5 5.0 - 8.0 pH LAB URINALYSIS - AUTOMATED METHOD 02/04/2025 5:08 PM [facility] Leukocytes, Urine Trace(A) Negative LAB URINALYSIS - AUTOMATED METHOD 02/04/2025 5:08 PM [facility] Nitrite, Urine Negative Negative LAB URINALYSIS - AUTOMATED METHOD 02/04/2025 5:08 PM [facility] Protein, Urine Negative <=Trace mg/dL LAB URINALYSIS - AUTOMATED METHOD 02/04/2025 5:08 PM [facility] Glucose, Urine Negative Negative mg/dL LAB URINALYSIS - AUTOMATED METHOD 02/04/2025 5:08 PM [facility] Ketones, Urine Negative Negative mg/dL LAB URINALYSIS - AUTOMATED METHOD 02/04/2025 5:08 PM [facility] Urobilinogen, Urine 0.2 0.2 - 1.0 mg/dL LAB URINALYSIS - AUTOMATED METHOD 02/04/2025 5:08 PM [facility] Bilirubin, Urine Negative Negative LAB URINALYSIS - AUTOMATED METHOD 02/04/2025 5:08 PM [facility] Blood, Urine Negative Negative LAB URINALYSIS - AUTOMATED METHOD 02/04/2025 5:08 PM [facility] RBC, Urine 1.2 0 - 4 /HPF LAB URINALYSIS - AUTOMATED METHOD 02/04/2025 5:08 PM [facility] WBC, Urine 4.2(H) 0 - 4 /HPF LAB URINALYSIS - AUTOMATED METHOD 02/04/2025 5:08 PM [facility] Squamous Epithelial, Urine 12 0 - 60 /LPF LAB URINALYSIS - AUTOMATED METHOD 02/04/2025 5:08 PM [facility] Bacteria, Urine Negative Negative /HPF LAB URINALYSIS - AUTOMATED METHOD 02/04/2025 5:08 PM [facility] Hyaline Casts, Urine 0.0 0 - 3 /LPF LAB URINALYSIS - AUTOMATED METHOD 02/04/2025 5:08 PM [facility] Urine Urine specimen obtained by clean catch procedure / Unknown Non-blood Collection / Unknown 02/04/2025 4:13 PM EDT 02/04/2025 4:52 PM EDT us Frances Edward MD LAB URINE ORDERABLES Final R esult [facility] [address] [place] [address], * ECG 12 lead (02/04/2025 3:52 PM EDT) Ventricular Rate ECG 70 BPM GEMUSE Atrial Rate 70 BPM GEMUSE P-R Interval 172 ms GEMUSE QRS Duration 98 ms GEMUSE Q-T Interval 442 ms GEMUSE QTc 477 ms GEMUSE P Wave [place] 34 degrees GEMUSE R [place] -2 degrees GEMUSE T [place] -16 degrees GEMUSE ECG Interpretation Normal sinus rhythm Normal ECG No previous ECGs available Confirmed by LISSA SAUL ([id number]) on 02/05/2025 7:17:54 AM GEMUSE 02/04/2025 3:52 PM EDT 02/05/2025 7:17 AM EDT us Frances Edward MD ECG ORDERABLES Final Result GEMUSE * (ABNORMAL) Urinalysis with reflex microscopic and culture (01/28/2025 6:57 PM EDT) Specific [place] Urine 1.010 1.003 - 1.030 LAB URINALYSIS - AUTOMATED METHOD 01/28/2025 7:22 PM [facility] pH, Urine 7.0 5.0 - 8.0 pH LAB URINALYSIS - AUTOMATED METHOD 01/28/2025 7:22 PM [facility] Leukocytes, Urine Small(A) Negative LAB URINALYSIS - AUTOMATED METHOD 01/28/2025 7:22 PM [facility] Nitrite, Urine Negative Negative LAB URINALYSIS - AUTOMATED METHOD 01/28/2025 7:22 PM [facility] Protein, Urine Negative <=Trace mg/dL LAB URINALYSIS - AUTOMATED METHOD 01/28/2025 7:22 PM [facility] Glucose, Urine Negative Negative mg/dL LAB URINALYSIS - AUTOMATED METHOD 01/28/2025 7:22 PM [facility] Ketones, Urine Negative Negative mg/dL LAB URINALYSIS - AUTOMATED METHOD 01/28/2025 7:22 PM [facility] Urobilinogen, Urine 1.0 0.2 - 1.0 mg/dL LAB URINALYSIS - AUTOMATED METHOD 01/28/2025 7:22 PM EDT [facility] Bilirubin, Urine Negative Negative LAB URINALYSIS - AUTOMATED METHOD 01/28/2025 7:22 PM EDT [facility] Blood, Urine Negative Negative LAB URINALYSIS - AUTOMATED METHOD 01/28/2025 7:22 PM [facility] RBC, Urine 2.0 0 - 4 /HPF LAB URINALYSIS - AUTOMATED METHOD 01/28/2025 7:[facility] WBC, Urine 11.8(H) 0 - 4 /HPF LAB URINALYSIS - AUTOMATED METHOD 01/28/2025 7:22 PM [facility] Squamous Epithelial, Urine 14 0 - 60 /LPF LAB URINALYSIS - AUTOMATED METHOD 01/28/2025 7:22 PM [facility] Bacteria, Urine Few(A) Negative /HPF LAB URINALYSIS - AUTOMATED METHOD 01/28/2025 7:22 PM [facility] Hyaline Casts, Urine 0.0 0 - 3 /LPF LAB URINALYSIS - AUTOMATED METHOD 01/28/2025 7:22 PM [facility] Urine Urine specimen obtained by clean catch procedure / Unknown Non-blood Collection / Unknown 01/28/2025 6:57 PM EDT 01/28/2025 7:12 PM EDT us Chelo Salazar DO LAB URINE ORDERABLES Final Re sult [facility] [address] [place] [address], * Monroy urine culture tube (01/28/2025 6:57 PM EDT) Extra Tube Hold for add-ons. 01/28/2025 9:01 PM EDT [facility] Comment:Auto resulted. Urine Urine specimen obtained by clean catch procedure / Unknown Non-blood Collection / Unknown 01/28/2025 6:57 PM EDT 01/28/2025 7:12 PM EDT [facility] URINE ORDERABLES Final Re sult Performing Organization Address [facility]/ZIP Co de Phone Number [facility] [address] [place] [address], [place] [phone] * (ABNORMAL) Culture urine (01/28/2025 6:57 PM EDT) [facility] Culture, Urine >=100,000 CFU/mL Enterococcus faecalis(A) JOSH 01/30/2025 8:42 AM EDT [facility] Comment: This is an edited [...] Enterococcus faecalis Nitrofurantoin JOSH <=16 ug/ml: Susceptible [facility] LAB MICROBIOLOGY - GENERAL OR DERABLES Final Result [facility] [address] [place] [address], [place] [phone] from Last 3 Months Insurance ) Advance Directives Documents on File Type Date Recorded 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
--- OUTSIDE RECORDS SUMMARY | 2025-04-04 17:32 | XMS_ITS | Encounter Summary ---
Author Organization [facility] Address [address] [place] [address] Care Team Providers Care Ict Teacher Name Role Phone Brain Cyr DO Primary Care Provider [phone] Norma Rogel RN Unavailable Unavailable Encounter Details Date Type Department Care Team (Late st Contact Info) Description 03/06/2025 Scanned Document [facility] at Home [address] [facility] [address] [place] [address] Provider, Generic Social History Tobacco [...] Recorded In the past 12 months has [employer], [employer], oil, or water [employer] threatened to shut off services in [...] time in the past 12 m [facility], were you homeless or living in a [...] on filedocumented in this encounter Care Teams Ict Teacher Relationship Specialty Start Date End Date Brain Cyr DO PCP - General 07/14/18 Norma Rogel, LONI CT Registered Nurse 07/14/18 documented as of this encounter
--- OUTSIDE RECORDS SUMMARY | 2025-04-04 17:32 | XMS_ITS | Encounter Summary ---
Author Organization [facility] Address [address] [place] [address] Care Team Providers Care Ferryboat Pilot Name Role Phone Jenn Hu MD Primary Care Provider [phone] Encounter Details Date Type Department Care Team (Late st Contact Info) Description 02/12/2025 Lab Requisition [facility] - Main Lab [address] [facility] [place] [address] Jenn Hu MD [address] [place] [address] Vitamin D deficiency, unspecified; Cervicalgia; Weakness; Essential [...] LAB CHEMISTRY METHOD 02/13/2025 2:24 PM EDT [facility] Potassium 3.2(L) 3.5 - 5.5 mmol/L LAB CHEMISTRY METHOD 02/13/2025 2:24 PM EDT [facility] Chloride 109 96 - 110 mmol/L LAB CHEMISTRY METHOD 02/13/2025 2:24 PM T [facility] CO2 24 21 - 32 mmol/L LAB CHEMISTRY METHOD 02/13/2025 2:24 PM EDT [facility] Anion Gap 9 3 - 11 LAB CHEMISTRY METHOD 02/13/2025 2:24 PM EDT [facility] Glucose 68(L) 70 - 100 mg/dL LAB CHEMISTRY METHOD 02/13/2025 2:24 PM EDT [facility] BUN 5 5 - 25 mg/dL LAB CHEMISTRY METHOD 02/13/2025 2:24 PM EDT [facility] Creatinine 0.54(L) 0.70 - 1.30 mg/dL LAB CHEMISTRY METHOD 02/13/2025 2:24 PM EDT [facility] eGFR 112 >=60 mL/min/1. 73m2 LAB CHEMISTRY METHOD 02/13/2025 2:24 PM EDT [facility] Comment:Calculation based on the Chronic Kidney Disease Epidemiology Collaboration (CKD-EPI) equation refit without adjustment for race. BUN/Creatinine Ratio 9.3 LAB CHEMISTRY METHOD 02/13/2025 2:24 PM EDT [facility] Calcium 8.9 8.5 - 10.5 mg/dL LAB CHEMISTRY METHOD 02/13/2025 2:24 PM T [facility] Blood Venous blood specimen / Unknown Venipuncture / Unknown 02/13/2025 5:40 AM EDT 02/13/2025 10:40 AM EDT us Jenn Hu MD LAB BLOOD ORDERABLES Final Resul t [facility] [address] [place] [address], * (ABNORMAL) Complete blood count (02/13/2025 5:40 AM EDT) WBC 8.8 4.8 - 10.8 K/mcL LAB HEMETOLOGY METHOD 02/13/2025 11:08 AM EDT [facility] RBC 3.30(L) 4.50 - 5.50 M/mcL LAB HEMETOLOGY METHOD 02/13/2025 11:08 AM [facility] Hemoglobin 11.2(L) 13.5 - 17.5 g/dL LAB HEMETOLOGY METHOD 02/13/2025 11:08 AM [facility] Hematocrit 32.1(L) 42.0 - 54.0 % LAB HEMETOLOGY METHOD 02/13/2025 11:08 AM [facility] MCV 96.1 79.0 - 98.0 FL LAB HEMETOLOGY METHOD 02/13/2025 11:08 AM [facility] MCH 33.5(H) 27.0 - 32.0 pcg LAB HEMETOLOGY METHOD 02/13/2025 11:08 AM [facility] MCHC 34.9 32.0 - 37.0 g/dL LAB HEMETOLOGY METHOD 02/13/2025 11:08 AM [facility] RDW 11.6 11.0 - 15.0 % LAB HEMETOLOGY METHOD 02/13/2025 11:08 AM [facility] Platelets 337 130 - 400 K/mcL LAB HEMETOLOGY METHOD 02/13/2025 11:08 AM [facility] MPV 9.8 7.0 - 11.0 FL LAB HEMETOLOGY METHOD 02/13/2025 11:08 AM [facility] NRBC 0.0 <1.0 % LAB HEMETOLOGY METHOD 02/13/2025 11:08 AM [facility] NRBC Absolute 0.00 <0.10 K/mcL LAB HEMETOLOGY METHOD 02/13/2025 11:08 AM [facility] Blood Venous blood specimen / Unknown Venipuncture / Unknown 02/13/2025 5:40 AM EDT 02/13/2025 10:41 AM EDT Jenn Hu MD LAB BLOOD ORDERABLES Final Resul t [facility] [address] [place] [address], documented in this encounter Visit Diagnoses Diagnosis Vitamin D deficiency, unspecified Cervicalgia Weakness Other malaise and fatigue Essential (primary) hypertension Unspecified essential hypertension documented in this encounter Care Teams Ferryboat Pilot Relationship Specialty Start Date End Date Jenn Hu MD [address] [place] [address] [address] [place] [address] PCP - General Geriatric Medicine 02/01/25 documented as of this encounter
--- OUTSIDE RECORDS SUMMARY | 2025-04-04 17:32 | XMS_ITS | Encounter Summary ---
Author Organization [facility] Address [address] [place] [address] Care Team Providers Care Vehicle Body Sander Name Role Phone Brain Cyr DO Primary Care Provider [phone] Norma Rogel RN Unavailable Unavailable Encounter Details Date Type Department Care Team (Late st Contact Info) Description 03/03/2025 Scanned Document [facility] at Home [address] [facility] [address] [place] [address] Provider, Generic Social History Tobacco Use Types Packs/Day Years Used Date Smoking Tobacco: Former Cigarettes 1 10 0 07/14/1989 - 07/14/1999 Smokeless Tobacco: Never Alcohol Use Standard Drinks/Week Comments Yes 14 (1 standard drink = 0.6 oz pure alcohol) 2 vy, 2 shots liquor nightly, will stop pre op . Last drink 6 days ago. [facility] Utilities Answer Date Recorded In the past 12 months has [employer], [employer], oil, or water [employer] threatened to shut off services in your [...] any time in the past 12 m [facility], were you homeless or living in [...] on filedocumented in this encounter Care Teams Vehicle Body Sander Relationship Specialty Start Date End Date Brain Cyr DO PCP - General 07/14/18 Norma Rogel, LONI CT Registered Nurse 07/14/18 documented as of this encounter
--- OUTSIDE RECORDS SUMMARY | 2025-04-04 17:33 | XMS_ITS | Encounter Summary ---
Author Organization [facility] Address [address] [place] [address] Care Team Providers Care Rug Measurer Name Role Phone Brain Cyr DO Primary Care Provider [phone] Norma Rogel RN Unavailable Unavailable Encounter Details Date Type Department Care Team (Late st Contact Info) Description 02/28/2025 Scanned Document [facility] at Home [address] [address] Provider, Generic Social History Tobacco Use Types Packs/Day Years Used Date Smoking Tobacco: Former Cigarettes 1 10 0 07/14/1989 - 07/14/1999 Smokeless Tobacco: Never Alcohol Use Standard Drinks/Week Comments Yes 14 (1 standard drink = 0.6 oz pure alcohol) 2 vy, 2 shots liquor nightly, will stop pre op . Last drink 6 days ago. [facility] Utilities Answer Date Recorded In the past 12 months has [employer], [employer], oil, or water [employer] threatened to shut off services in your [...] any time in the past 12 m [facility], were you homeless or living [...] on filedocumented in this encounter Care Teams Rug Measurer Relationship Specialty Start Date End Date Brain Cyr DO PCP - General 07/14/18 Norma Rogel, LONI CT Registered Nurse 07/14/18 documented as of this encounter
--- OUTSIDE RECORDS SUMMARY | 2025-04-04 17:33 | XMS_ITS | Encounter Summary ---
Author Organization [facility] Address [address] [place] [address] Care Team Providers Care Blood Donor Unit Assistant Name Role Phone Brain Cyr DO Primary Care Provider [phone] Norma Rogel RN Unavailable Unavailable Encounter Details Date Type Department Care Team (Late st Contact Info) Description 02/18/2025 Scanned Document [facility] at Home [address] [address] Provider, Generic Social History Tobacco Use Types Packs/Day Years Used Date Smoking Tobacco: Former Cigarettes 1 10 0 07/14/1989 - 07/14/1999 Smokeless Tobacco: Never Alcohol Use Standard Drinks/Week Comments Yes 14 (1 standard drink = 0.6 oz pure alcohol) 2 vy, 2 shots liquor nightly, will stop pre op . Last drink 6 days ago. [facility] Utilities Answer Date Recorded In the past 12 months has [employer], [employer], oil, or water [employer] threatened to shut off services in your [...] any time in the past 12 m [facility], were you homeless or living in a retirement (including now)? No 01/10/2025 Sex and Gender [...] on filedocumented in this encounter Care Teams Blood Donor Unit Assistant Relationship Specialty Start Date End Date Brain Cyr DO PCP - General 07/14/18 Norma Rogel, LONI CT Registered Nurse 07/14/18 documented as of this encounter
--- OUTSIDE RECORDS SUMMARY | 2025-04-04 17:33 | XMS_ITS | Encounter Summary ---
Author Organization [facility] Address [address] [place] [address] Care Team Providers Care Manager Cardiovascular Name Role Phone Jenn Hu MD Primary Care Provider [phone] Encounter Details Date Type Department Care Team (Late st Contact Info) Description 02/01/[address] [facility] - Main Lab [address] [facility] [place] [address] Jenn Hu MD [address] [place] [address] Essential (primary) hypertension Social History Tobacco Use [...] 3:20 PM EDT Roseanne Webster RN * [place] Suicide Severity Rating Scale (Screener/Recent Self-Report) Question Answer Date of Assessment Author 1. Wish to be (Past 1 Month) No 025 3:20 PM EDT Roseanne Wesbter RN documented as of this encounter Mental [...] metabolic panel (02/01/2025 8:24 AM EDT) [facility] Signature Sodium 139 133 - 145 mmol/L LAB CHEMISTRY METHOD 02/01/2025 11:49 AM [facility] Potassium 3.5 3.5 - 5.5 mmol/L LAB CHEMISTRY METHOD 02/01/2025 11:49 AM [facility] Chloride 103 96 - 110 mmol/L LAB CHEMISTRY METHOD 02/01/2025 11:49 AM [facility] CO2 25 21 - 32 mmol/L LAB CHEMISTRY METHOD 02/01/2025 11:49 AM [facility] Anion Gap 11 3 - 11 LAB CHEMISTRY METHOD 02/01/2025 11:49 AM [facility] Glucose 76 70 - 100 mg/dL LAB CHEMISTRY METHOD 02/01/2025 11:49 AM [facility] BUN 45(H) 5 - 25 mg/dL LAB CHEMISTRY METHOD 02/01/2025 11:49 AM [facility] Creatinine 6.49(H) 0.70 - 1.30 mg/dL LAB CHEMISTRY METHOD 02/01/2025 11:49 AM [facility] eGFR 9(L) >=60 mL/min/1. 73m2 LAB CHEMISTRY METHOD 02/01/2025 11:49 AM [facility] Comment:Calculation based on the Chronic Kidney Disease Epidemiology Collaboration (CKD-EPI) equation refit without adjustment for race. BUN/Creatinine Ratio 6.9 LAB CHEMISTRY METHOD 02/01/2025 11:49 AM [facility] Calcium 9.0 8.5 - 10.5 mg/dL LAB CHEMISTRY METHOD 02/01/2025 11:49 AM [facility] AST (SGOT) 22 10 - 42 unit/L LAB CHEMISTRY METHOD 02/01/2025 11:49 AM [facility] ALT (SGPT) 24 10 - 60 unit/L LAB CHEMISTRY METHOD 02/01/2025 11:49 AM [facility] Alkaline Phosphatase 88 42 - 121 unit/L LAB CHEMISTRY METHOD 02/01/2025 11:49 AM [facility] Total Protein 6.7 6.0 - 8.0 g/dL LAB CHEMISTRY METHOD 02/01/2025 11:49 AM [facility] Albumin 3.4 3.2 - 5.0 g/dL LAB CHEMISTRY METHOD 02/01/2025 11:49 AM [facility] Total Bilirubin 1.1 0.0 - 1.4 mg/dL LAB CHEMISTRY METHOD 02/01/2025 11:49 AM T [facility] Blood Venous blood specimen / Unknown Venipuncture / Unknown 02/01/2025 8:24 AM EDT 02/01/2025 10:42 AM EDT us Jenn Hu MD LAB BLOOD ORDERABLES Final Resul t [facility] [address] [place] [address], * (ABNORMAL) Complete blood count (02/01/2025 8:24 AM EDT) WBC 11.3(H) 4.8 - 10.8 K/mcL LAB HEMETOLOGY METHOD 02/01/2025 11:02 AM [facility] RBC 3.40(L) 4.50 - 5.50 M/mcL LAB HEMETOLOGY METHOD 02/01/2025 11:02 AM [facility] Hemoglobin 11.8(L) 13.5 - 17.5 g/dL LAB HEMETOLOGY METHOD 02/01/2025 11:02 AM [facility] Hematocrit 33.8(L) 42.0 - 54.0 % LAB HEMETOLOGY METHOD 02/01/2025 11:02 AM [facility] MCV 100.9(H) 79.0 - 98.0 FL LAB HEMETOLOGY METHOD 02/01/2025 11:02 AM [facility] MCH 35.2(H) 27.0 - 32.0 pcg LAB HEMETOLOGY METHOD 02/01/2025 11:02 AM [facility] MCHC 34.9 32.0 - 37.0 g/dL LAB HEMETOLOGY METHOD 02/01/2025 11:02 AM EDT [facility] RDW 11.5 11.0 - 15.0 % LAB HEMETOLOGY METHOD 02/01/2025 11:02 AM EDT [facility] Platelets 187 130 - 400 K/mcL LAB HEMETOLOGY METHOD 02/01/2025 11:02 AM EDT [facility] MPV 10.2 7.0 - 11.0 FL LAB HEMETOLOGY METHOD 02/01/2025 11:02 AM EDT [facility] NRBC 0.0 <1.0 % LAB HEMETOLOGY METHOD 02/01/2025 11:02 AM EDT [facility] NRBC Absolute 0.00 <0.10 K/mcL LAB HEMETOLOGY METHOD 02/01/2025 11:02 AM EDT [facility] Blood Venous blood specimen / Unknown Venipuncture / Unknown 02/01/2025 8:24 AM EDT 02/01/2025 10:42 AM EDT us Jenn Hu MD LAB BLOOD ORDERABLES Final Resul t [facility] [address] [place] [address], documented in this encounter Visit Diagnoses Diagnosis Essential (primary) hypertension Unspecified essential hypertension documented in this encounter Additional Health Concerns Infection Onset Date Last Indicated Resolved Time Respiratory Rule-Out 02/06/2025 02/07/20252 025 1:47 AM EDT COVID-19 Rule-Out 02/06/2025 02/07/2025 02/07/2025 1:47 AM EDT documented as of this encounter Care Teams Manager Cardiovascular Relationship Specialty Start Date End Date Jenn Hu MD [address] [place] [address] [address] [place] [address] PCP - General Geriatric Medicine 02/01/25 documented as of this encounter
--- OUTSIDE RECORDS SUMMARY | 2025-04-04 17:33 | XMS_ITS | Encounter Summary ---
Author Organization [facility] Address [address] [place] [address] Care Team Providers Care Package Collector Name Role Phone Brain Cyr DO Primary Care Provider [phone] Norma Rogel RN Unavailable Unavailable Encounter Details Date Type Department Care Team (Late st Contact Info) Description 02/17/2025 Scanned Document [facility] at Home [address] [facility] [address] [place] [address] Provider, Generic Social History Tobacco Use Types Packs/Day Years Used Date Smoking Tobacco: Former Cigarettes 1 10 0 07/14/1989 - 07/14/1999 Smokeless Tobacco: Never Alcohol Use Standard Drinks/Week Comments Yes 14 (1 standard drink = 0.6 oz pure alcohol) 2 vy, 2 shots liquor nightly, will stop pre op . Last drink 6 days ago. [facility] Utilities Answer Date Recorded In the past 12 months has [employer], [employer], oil, or water [employer] threatened to shut off services in your [...] on filedocumented in this encounter Care Teams Package Collector Relationship Specialty Start Date End Date Brain Cyr DO PCP - General 07/14/18 Norma Rogel, LONI [place] Registered Nurse 07/14/18 documented as of this encounter
--- OUTSIDE RECORDS SUMMARY | 2025-04-04 17:33 | XMS_ITS | Encounter Summary ---
Author Organization [facility] Address [address] [place] [address] Care Team Providers Care Solder Cream Maker Name Role Phone Brain Cyr DO Primary Care Provider [phone] Norma Rogel RN Unavailable Unavailable Encounter Details Date Type Department Care Team (Late st Contact Info) Description 03/17/2025 Scanned Document [facility] at Home [address] [facility] [address] [place] [address] Provider, Generic Social History Tobacco Use Types Packs/Day Years Used Date Smoking Tobacco: Former Cigarettes 1 10 0 07/14/1989 - 07/14/1999 Smokeless Tobacco: Never Alcohol Use Standard Drinks/Week Comments Yes 14 (1 standard drink = 0.6 oz pure alcohol) 2 vy, 2 shots liquor nightly, will stop pre op . Last drink 6 days ago. [facility] Utilities Answer Date Recorded In the past 12 months has [employer], [employer], oil, or water [employer] threatened to shut off services in [...] on filedocumented in this encounter Care Teams Solder Cream Maker Relationship Specialty Start Date End Date Brain Cyr DO PCP - General 07/14/18 Norma Rogel, LONI [place] Registered Nurse 07/14/18 documented as of this encounter
--- OUTSIDE RECORDS SUMMARY | 2025-04-04 17:33 | XMS_ITS | Encounter Summary ---
Author Organization [facility] Address [address] [place] [address] Care Team Providers Care Custom Wood Stair Builder Name Role Phone Brain Cyr DO Primary Care Provider [phone] Norma Rogel RN Unavailable Unavailable Encounter Details Date Type Department Care Team (Late st Contact Info) Description 02/19/2025 Scanned Document [facility] at Home [address] [facility] [address] [place] [address] Provider, Generic Social History Tobacco [...] Recorded In the past 12 months has [employer], [employer], oil, or water [employer] threatened to shut off services in your [...] in the past 12 m [facility], were you homeless or living in a [...] on filedocumented in this encounter Care Teams Custom Wood Stair Builder Relationship Specialty Start Date End Date Brain Cyr DO PCP - General 07/14/18 Norma Rogel, LONI [place] Registered Nurse 07/14/18 documented as of this encounter
--- OUTSIDE RECORDS SUMMARY | 2025-04-04 17:33 | XMS_ITS | Encounter Summary ---
Author Organization [facility] Address [address] [place] [address] Care Team Providers Care Pole Peeling Machine Operator Helper Name Role Phone Brain Cyr DO Primary Care Provider [phone] Norma Rogel RN Unavailable Unavailable Encounter Details Date Type Department Care Team (Late st Contact Info) Description 03/15/[address] [facility] at Home [address] [facility] [address] [place] [address] Provider, Generic Social History Tobacco Use Types Packs/Day Years Used Date Smoking Tobacco: Former Cigarettes 1 10 0 07/14/1989 - 07/14/1999 Smokeless Tobacco: Never Alcohol Use Standard Drinks/Week Comments Yes 14 (1 standard drink = 0.6 oz pure alcohol) 2 vy, 2 shots liquor nightly, will stop pre op . Last drink 6 days ago. [facility] Utilities Answer Date Recorded In the past 12 months has [employer], [employer], oil, or water [employer] threatened to shut off services in your [...] time in the past 12 m [facility], were you homeless or living in a [place] health care facility (including now)? No 01/10/2025 Sex and Gender [...] on filedocumented in this encounter Care Teams Pole Peeling Machine Operator Helper Relationship Specialty Start Date End Date Brain Cyr DO PCP - General 07/14/18 Norma Rogel, LONI [place] Registered Nurse 07/14/18 documented as of this encounter
--- OUTSIDE RECORDS SUMMARY | 2025-04-04 17:33 | XMS_ITS | Encounter Summary ---
Author Organization [facility] Address [address] [place] [address] Care Team Providers Care Experience Designer Name Role Phone Jenn Hu MD Primary Care Provider [phone] Encounter Details Date Type Department Care Team (Late st Contact Info) Description 02/17/2025 Lab Requisition [facility] - Main Lab [address] [facility] [place] [address] Jenn Hu MD [address] [place] [address] Vitamin D deficiency, unspecified; Cervicalgia; Weakness; Essential [...] hypertension documented in this encounter Care Teams Experience Designer Relationship Specialty Start Date End Date Jenn Hu MD [address] [place] [address] [address] [place] [address] PCP - General Geriatric Medicine 02/01/25 documented as of this encounter
--- OUTSIDE RECORDS SUMMARY | 2025-04-04 17:33 | XMS_ITS | Encounter Summary ---
Author Organization [facility] Address [address] [place] [address] Care Team Providers Care Design Editor Name Role Phone Brain Cyr DO Primary Care Provider [phone] Norma Rogel RN Unavailable Unavailable Encounter Details Date Type Department Care Team (Late st Contact Info) Description 03/14/2025 Scanned Document [facility] at Home [address] [address] Provider, Generic Social History Tobacco Use Types Packs/Day Years Used Date Smoking Tobacco: Former Cigarettes 1 10 0 07/14/1989 - 07/14/1999 Smokeless Tobacco: Never Alcohol Use Standard Drinks/Week Comments Yes 14 (1 standard drink = 0.6 oz pure alcohol) 2 vy, 2 shots liquor nightly, will stop pre op . Last drink 6 days ago. [facility] Utilities Answer Date Recorded In the past 12 months has [employer], [employer], oil, or water [employer] threatened to shut off services in your [...] any time in the past 12 m [facility], were you homeless or living in a [...] on filedocumented in this encounter Care Teams Design Editor Relationship Specialty Start Date End Date Brain Cyr DO PCP - General 07/14/18 Norma Rogel, LONI [place] Registered Nurse 07/14/18 documented as of this encounter
--- OUTSIDE RECORDS SUMMARY | 2025-04-04 17:33 | XMS_ITS | Encounter Summary ---
Author Organization [facility] Address [address] [place] [address] Care Team Providers Care Director Telecommunications Name Role Phone Brain Cyr DO Primary Care Provider [phone] Norma Rogel RN Unavailable Unavailable Encounter Details Date Type Department Care Team (Late st Contact Info) Description 03/22/2025 Scanned Document [facility] at Home [address] [facility] [address] [place] [address] Provider, Generic Social History Tobacco Use Types Packs/Day Years Used Date Smoking Tobacco: Former Cigarettes 1 10 0 07/14/1989 - 07/14/1999 Smokeless Tobacco: Never Alcohol Use Standard Drinks/Week Comments Yes 14 (1 standard drink = 0.6 oz pure alcohol) 2 vy, 2 shots liquor nightly, will stop pre op . Last drink 6 days ago. [facility] Utilities Answer Date Recorded In the past 12 months has [employer], [employer], oil, or water [employer] threatened to shut off services in your [...] in the past 12 m [facility], were you homeless or living [...] on filedocumented in this encounter Care Teams Director Telecommunications Relationship Specialty Start Date End Date Brain Cyr DO PCP - General 07/14/18 Norma Rogel, LONI [place] Registered Nurse 07/14/18 documented as of this encounter
--- OUTSIDE RECORDS SUMMARY | 2025-04-04 17:33 | XMS_ITS | Encounter Summary ---
Author Organization [facility] Address [address] [place] [address] Care Team Providers Care Laboratory Courier Name Role Phone Brain Cyr DO Primary Care Provider [phone] Norma Rogel RN Unavailable Unavailable Encounter Details Date Type Department Care Team (Late st Contact Info) Description 03/23/2025 Scanned Document [facility] [address] [facility] [address] [place] [address] Provider, Generic Social History Tobacco Use Types Packs/Day Years Used Date Smoking Tobacco: Former Cigarettes 1 10 0 07/14/1989 - 07/14/1999 Smokeless Tobacco: Never Alcohol Use Standard Drinks/Week Comments Yes 14 (1 standard drink = 0.6 oz pure alcohol) 2 vy, 2 shots liquor nightly, will stop pre op . Last drink 6 days ago. [facility] Utilities Answer Date Recorded In the past 12 months has [employer], [employer], oil, or water [employer] threatened to shut off services in your [...] time in the past 12 m [facility], were you homeless or living [...] on filedocumented in this encounter Care Teams Laboratory Courier Relationship Specialty Start Date End Date Brain Cyr DO PCP - General 07/14/18 Norma Rogel, LONI [place] Registered Nurse 07/14/18 documented as of this encounter
--- OUTSIDE RECORDS SUMMARY | 2025-04-04 17:33 | XMS_ITS | Encounter Summary ---
Author Organization [facility] Address [address] [place] [address] Care Team Providers Care Railroad Police Name Role Phone Brain Cyr DO Primary Care Provider [phone] Norma Rogel RN Unavailable Unavailable Encounter Details Date Type Department Care Team (Late st Contact Info) Description 02/21/2025 Scanned Document [facility] at Home [address] [facility] [address] [place] [address] Provider, Generic Social History Tobacco Use Types Packs/Day Years Used Date Smoking Tobacco: Former Cigarettes 1 10 0 07/14/1989 - 07/14/1999 Smokeless Tobacco: Never Alcohol Use Standard Drinks/Week Comments Yes 14 (1 standard drink = 0.6 oz pure alcohol) 2 vy, 2 shots liquor nightly, will stop pre op . Last drink 6 days ago. [facility] Utilities Answer Date Recorded In the past 12 months has [employer], [employer], oil, or water [employer] threatened to shut off services in your [...] on filedocumented in this encounter Care Teams Railroad Police Relationship Specialty Start Date End Date Brain Cyr DO PCP - General 07/14/18 Norma Rogel, LONI [place] Registered Nurse 07/14/18 documented as of this encounter
--- OUTSIDE RECORDS SUMMARY | 2025-04-04 17:33 | XMS_ITS | Encounter Summary ---
Author Organization [facility] Address [address] [place] [address] Care Team Providers Care Customer Service Driver Name Role Phone Brain Cyr DO Primary Care Provider [phone] Norma Rogel RN Unavailable Unavailable Encounter Details Date Type Department Care Team (Late st Contact Info) Description 03/10/2025 Scanned Document [facility] at Home [address] [facility] [address] [place] [address] Provider, Generic Social History Tobacco Use Types Packs/Day Years Used Date Smoking Tobacco: Former Cigarettes 1 10 0 07/14/1989 - 07/14/1999 Smokeless Tobacco: Never Alcohol Use Standard Drinks/Week Comments Yes 14 (1 standard drink = 0.6 oz pure alcohol) 2 vy, 2 shots liquor nightly, will stop pre op . Last drink 6 days ago. [facility] Utilities Answer Date Recorded In the past 12 months has [employer], [address], oil, or water [employer] threatened to shut off services in your [...] on filedocumented in this encounter Care Teams Customer Service Driver Relationship Specialty Start Date End Date Brain Cyr DO PCP - General 07/14/18 Norma Rogel, LONI [place] Registered Nurse 07/14/18 documented as of this encounter
--- OUTSIDE RECORDS SUMMARY | 2025-04-04 17:33 | XMS_ITS | Clinical Summary ---
Author Organization Replaced by [facility] Address [address] [facility] [place] [address] Care Team Providers Care Business Support Administrator Name Role Phone SheilaIzabella moreno ANGIE Unavailable [phone] Alo Mcgrath Primary Care Provider [phone] Allergies Active Allergy Reactions Criticality Noted Date [...] Vaccinations-consider flu- Covid-RSV- Shingrix x 2- TDap Gape-14-82-2024 Colonoscopy-last 11-27-2023 with EGD Assessment & Plan (04/10/2023 7:59 AM EST): EKG-l See today Nwvj-0-22-2023 < never obtained labs > still pending [...] 7:26 AM EDT): Collaborative care with rheumatology [facility] Assessment & Plan (01/19/2020 8:48 AM EDT): [facility] collaborative --- asymptomatic at present Will follow clinically Assessment & Plan (04/26/2019 9:11 AM EST): No sign of flare to date Assessment & Plan (02/15/2019 2:51 PM EDT): 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 Previously improved with prednisone Seen [facility] Rheumatology Assessment & Plan (06/09/2018 2:50 PM EST): Acute exacerbation swelling in both hands Previously improved with prednisone Seen [facility] Rheumatology Assessment & Plan (10/27/2017 10:39 AM EDT): Differential Dx discussed in detail including: rheumatoid arthritis vs other small joint symmetrical arthritides Referral to [facility] Rheumatology - Brynn YOUSIF Will taper Prednisone [...] MACK Coping - working with [facility] Assessment & Plan (11/08/2021 8:16 AM EDT): [...] that has since failed -> referral to [facility] for new equipment Assessment & Plan (03/14/2024 9:00 AM EDT): Multiple attempts at upgrading PAP equipment and setting up repeat PAP assessment for known IKE Both scheduled for [facility] pulmonary and [facility] IKE Assessment & Plan (06/08/2023 12:22 PM EST): Patient has to set up appointment with [facility] Assessment & Plan (05/14/2023 9:17 AM EST): AP use ---> continues albeit older equipment Patient has to set up appointment with [facility] Assessment & Plan (04/10/2023 7:19 AM EST): AP use ---> continues albeit older equipment Patient to inform when ready for repeat sleep study Assessment & Plan (11/27/2022 8:20 AM EDT): PAP use ---> continues albeit older equipment Patient to inform when ready for repeat sleep study Assessment & Plan (08/28/2022 9:50 AM EDT): Request for new equipment - Will make referral to [facility]- pulmonary and continue with best effort [...] Description 03/31/2025 1:00 PM EDT Office Visit Replaced by [facility] Department of Vascular Surgery [address] [place] [phone] Alfredo Moses MD Grillo, Laura M, PA-C Acute deep vein thrombosis of left peroneal vein (HCC) (Primary Dx) 03/29/2025 11:50 AM EDT Office Visit [facility] [address] [place] [phone] Alo Mcgrath PA Cervical stenosis of spinal canal (Primary Dx); Cervical radiculopathy; Deep vein thrombosis (DVT) of left lower extremity, unspecified chronicity, unspecified vein (HCC); Function kidney decreased; Hyponatremia; Urinary retention; Anemia, unspecified type 03/20/2025 Orders Only Replaced by [facility] Department of Internal Medicine [address] [facility] [place], [place] [id number] Alo Mcgrath PA 02/24/2025 1:10 PM EDT Office Visit Replaced by [facility] Department of Family Medicine [address] [place] [phone] Alo Mcgrath PA Cervical stenosis of spinal [...] pur e alcohol) daily 4 servings daily [employer] Utilities Answer Date Recorded In the past 12 months has [employer], [employer], oil, or water [employer] threatened to shut off services in your [...] any time in the past 12 m [facility], were you homeless or living in a custodial (including now)? No 05/20/2024 [employer]iaper Assistance Answer [...] Description 05/19/2025 11:30 AM EST Ancillary Procedure [facility] [address] [place] [address] [address] [place] [phone] Ann Collins PA-C [address] [facility] [place] [address] 05/19/2025 12:00 PM EST Office Visit [facility] [address] [place] [address] [address] [place] [phone] Alfredo Moses MD [address] [place], [place] [address] 06/28/2025 9:10 AM EST Office Visit [facility] [address] [place] [phone] Alo Mcgrath PA [address] [facility] [address] [place] [address] Health Maintenance Due Date Last Done Comments [...] Count 8.7 3.8 - 10.8 Thousand/ uL [facility] Red Cell Count 4.03(L) 4.20 - 5.80 Million/u L [facility] Hemoglobin 12.9(L) 13.2 - 17.1 g/dL [facility] Hematocrit 39.3 38.5 - 50.0 % [facility] MCV 97.5 80.0 - 100.0 fL [facility] MCH 32.0 27.0 - 33.0 pg [facility] MCHC 32.8 32.0 - 36.0 g/dL [facility] Comment: For adults, a slight decrease in the calculated MCHC value (in the range of 30 to 32 g/dL) is most likely not clinically significant; however, it should be interpreted with caution in correlation with other red cell parameters and the patient's clinical condition. RBC Distribution Width 11.9 11.0 - 15.0 % [facility] Platelet Count 293 140 - 400 Thousand/ uL [facility] MPV 9.8 7.5 - 12.5 fL [facility] 02/27/2025 10:2 2 AM EDT 02/27/2025 10:23 AM EDT Alo TREVINO [facility] LAB ORDERABLES Kimi l Result Performing Organization Address [facility] Co de Phone Number [facility] [address] [place] [phone] * (ABNORMAL) IRON, TIBC AND FERRITIN PANEL (Q) (02/27/2025 10:22 AM EDT) [facility] IRON, TOTAL 50 50 - 180 mcg/dL [facility] IRON BINDING CAPACITY 263 250 - 425 mcg/dL (calc) [facility] % SATURATION 19(L) 20 - 48 % (calc) [facility] FERRITIN 440(H) 24 - 380 ng/mL [facility] 02/27/2025 10:2 2 AM EDT 02/27/2025 10:23 AM EDT Alo TREVINO [facility] LAB ORDERABLES Kimi l Result Performing Organization Address [facility] de Phone Number [facility] [address] [place] [phone] * Colonoscopy (07/22/2012) Pathologist [facility] Colonoscopy completed Historical Provider HEALTH MAINTENANCE Final Result from Last 3 Months or Most Recently Relevant to Health Maintenance Insurance [facility] Care Teams Business Support Administrator Relationship Specialty Start Date End Date Izabella Francis [facility] PCP - Insurance Payer PCP 06/01/23 Alo Mcgrath PA [address] [address] PCP - General Internal Medicine 02/21/25
--- OUTSIDE RECORDS SUMMARY | 2025-04-04 17:33 | XMS_ITS | Encounter Summary ---
Author Organization [facility] Address [address] [place] [address] Care Team Providers Care Joist Setter Name Role Phone Jenn Hu MD Primary Care Provider [phone] Encounter Details Date Type Department Care Team (Late st Contact Info) Description 02/03/2025 Lab Requisition [facility] - Main Lab [address] [facility] [place] [address] Jenn Hu MD [address] [place] [address] Vitamin D deficiency, unspecified; Cervicalgia; Weakness; Essential [...] 5:01 PM EDT Enid Hill RN * [place] Suicide Severity Rating Scale (Screener/Recent Self-Report) Question [...] documented as of this encounter Care Teams Joist Setter Relationship Specialty Start Date End Date Jenn Hu MD [address] [place] [address] [address] [place] [address] PCP - General Geriatric Medicine 02/01/25 documented as of this encounter
--- OUTSIDE RECORDS SUMMARY | 2025-04-04 17:33 | XMS_ITS | Encounter Summary ---
Author Organization [facility] Address [address] [place] [address] Care Team Providers Care Auditing Manager Name Role Phone Brain Cyr DO Primary Care Provider [phone] Norma Rogel RN Unavailable Unavailable Encounter Details Date Type Department Care Team (Late st Contact Info) Description 03/11/2025 Scanned Document [facility] at Home [address] [facility] [address] [place] [address] Provider, Generic Social History Tobacco Use Types Packs/Day Years Used Date Smoking Tobacco: Former Cigarettes 1 10 0 07/14/1989 - 07/14/1999 Smokeless Tobacco: Never Alcohol Use Standard Drinks/Week Comments Yes 14 (1 standard drink = 0.6 oz pure alcohol) 2 vy, 2 shots liquor nightly, will stop pre op . Last drink 6 days ago. [facility] Utilities Answer Date Recorded In the past 12 months has [employer], [employer], oil, or water [employer] threatened to shut off services in your [...] living in a custodial (including now)? No 01/10/2025 Sex and Gender [...] on filedocumented in this encounter Care Teams Auditing Manager Relationship Specialty Start Date End Date Brain Cyr DO PCP - General 07/14/18 Norma Rogel, LONI [place] Registered Nurse 07/14/18 documented as of this encounter
--- OUTSIDE RECORDS SUMMARY | 2025-04-04 17:33 | XMS_ITS | Encounter Summary ---
Author Organization [facility] Address [address] [place] [address] Care Team Providers Care Spiral Gear Generator Name Role Phone Brain Cyr DO Primary Care Provider [phone] Norma Rogel RN Unavailable Unavailable Encounter Details Date Type Department Care Team (Late st Contact Info) Description 03/08/2025 Scanned Document [facility] at Home [address] [facility] [address] [place] [address] Provider, Generic Social History Tobacco Use Types Packs/Day Years Used Date Smoking Tobacco: Former Cigarettes 1 10 0 07/14/1989 - 07/14/1999 Smokeless Tobacco: Never Alcohol Use Standard Drinks/Week Comments Yes 14 (1 standard drink = 0.6 oz pure alcohol) 2 vy, 2 shots liquor nightly, will stop pre op . Last drink 6 days ago. [facility] Utilities Answer Date Recorded In the past 12 months has [employer], [employer], oil, or water [employer] threatened to shut off services in your [...] on filedocumented in this encounter Care Teams Spiral Gear Generator Relationship Specialty Start Date End Date Brain Cyr DO PCP - General 07/14/18 Norma Rogel, LONI [place] Registered Nurse 07/14/18 documented as of this encounter
--- OUTSIDE RECORDS SUMMARY | 2025-04-04 17:33 | XMS_ITS | Encounter Summary ---
Author Organization [facility] Address [address] [place] [address] Care Team Providers Care Lumber Piler Operator Name Role Phone Brain Cyr DO Primary Care Provider [phone] Norma Rogel RN Unavailable Unavailable Encounter Details Date Type Department Care Team (Late st Contact Info) Description 02/16/2025 Scanned Document [facility] at Home [address] [address] Provider, Generic Social History Tobacco Use Types Packs/Day Years Used Date Smoking Tobacco: Former Cigarettes 1 10 0 07/14/1989 - 07/14/1999 Smokeless Tobacco: Never Alcohol Use Standard Drinks/Week Comments Yes 14 (1 standard drink = 0.6 oz pure alcohol) 2 vy, 2 shots liquor nightly, will stop pre op . Last drink 6 days ago. [facility] Utilities Answer Date Recorded In the past 12 months has [employer], [employer], oil, or water [employer] threatened to shut off services in your [...] on filedocumented in this encounter Care Teams Lumber Piler Operator Relationship Specialty Start Date End Date Brian Cyr DO PCP - General 07/14/18 Norma Rogel, LONI [place] Registered Nurse 07/14/18 documented as of this encounter
--- OUTSIDE RECORDS SUMMARY | 2025-04-04 17:33 | XMS_ITS | Encounter Summary ---
Author Organization [facility] Address [address] [place] [address] Care Team Providers Care Shotblast Operator Name Role Phone Brain Cyr DO Primary Care Provider [phone] Norma Rogel RN Unavailable Unavailable Encounter Details Date Type Department Care Team (Late st Contact Info) Description 03/13/2025 Scanned Document [facility] at [facility] [address] [facility] [address] [place] [address] Provider, Generic Social History Tobacco Use Types Packs/Day Years Used Date Smoking Tobacco: Former Cigarettes 1 10 0 07/14/1989 - 07/14/1999 Smokeless Tobacco: Never Alcohol Use Standard Drinks/Week Comments Yes 14 (1 standard drink = 0.6 oz pure alcohol) 2 vy, 2 shots liquor nightly, will stop pre op . Last drink 6 days ago. [facility] Utilities Answer Date Recorded In the past 12 months has [employer], [employer], oil, or water [employer] threatened to shut off services in your [...] on filedocumented in this encounter Care Teams Shotblast Operator Relationship Specialty Start Date End Date Brain Cyr DO PCP - General 07/14/18 Norma Rogel, LONI [place] Registered Nurse 07/14/18 documented as of this encounter
--- OUTSIDE RECORDS SUMMARY | 2025-04-04 17:33 | XMS_ITS | Encounter Summary ---
Author Organization [facility] Address [address] [place] [address] Care Team Providers Care Retail Marketing Executive Name Role Phone Brain Cyr DO Primary Care Provider [phone] Norma Rogel RN Unavailable Unavailable Encounter Details Date Type Department Care Team (Late st Contact Info) Description 03/21/[address] [facility] at Home 12[address] [facility] [address] [place] [address] Provider, Generic Social History Tobacco Use Types Packs/Day Years Used Date Smoking Tobacco: Former Cigarettes 1 10 0 07/14/1989 - 07/14/1999 Smokeless Tobacco: Never Alcohol Use Standard Drinks/Week Comments Yes 14 (1 standard drink = 0.6 oz pure alcohol) 2 vy, 2 shots liquor nightly, will stop pre op . Last drink 6 days ago. [facility] Utilities Answer Date Recorded In the past 12 months has [employer], [employer] (formerly [employer]), oil, or water [employer] threatened to shut off services in your [...] any time in the past 12 m [facility], were you homeless or living in [...] on filedocumented in this encounter Care Teams Retail Marketing Executive Relationship Specialty Start Date End Date Brain Cyr DO PCP - General 07/14/18 Norma Rogel, LONI [place] Registered Nurse 07/14/18 documented as of this encounter
--- OUTSIDE RECORDS SUMMARY | 2025-04-04 17:33 | XMS_ITS | Encounter Summary ---
Author Organization [facility] Address [address] [place] [address] Care Team Providers Care Washer Meat Name Role Phone Brain Cyr DO Primary Care Provider [phone] Norma Roegl RN Unavailable Unavailable Encounter Details Date Type Department Care Team (Late st Contact Info) Description 02/27/2025 Scanned Document [facility] at [facility] [address] [facility] [address] [place] [address] Provider, Generic Social History Tobacco Use Types Packs/Day Years Used Date Smoking Tobacco: Former Cigarettes 1 10 0 07/14/1989 - 07/14/1999 Smokeless Tobacco: Never Alcohol Use Standard Drinks/Week Comments Yes 14 (1 standard drink = 0.6 oz pure alcohol) 2 vy, 2 shots liquor nightly, will stop pre op . Last drink 6 days ago. [facility] Utilities Answer Date Recorded In the past 12 months has [employer], [employer], oil, or water [employer] threatened to shut off services in your [...] on filedocumented in this encounter Care Teams Washer Meat Relationship Specialty Start Date End Date Brain Cyr DO PCP - General 07/14/18 oNrma Rogel, LONI [place] Registered Nurse 07/14/18 documented as of this encounter
--- OUTSIDE RECORDS SUMMARY | 2025-04-04 17:33 | XMS_ITS | Encounter Summary ---
Author Organization [facility] Address [address] [place] [address] Care Team Providers Care Physics Professor Name Role Phone SheilaIzabella moreno ANGIE Unavailable [phone] Alo Mcgrath Primary Care Provider [phone] Encounter Details Date Type Department Care Team (Late st Contact Info) Description 03/20/2025 Orders Only [facility] Department of Internal Medicine 1 [facility] [address] [place] [address] Alo Mcgrath PA 1 [facility] [address] [place] [address] Social History Tobacco Use Types Packs/Day Years Used Date Smoking Tobacco: Former Cigarettes 0.8 18 1 980 - 1997 Smokeless Tobacco: Never Alcohol Use Standard Drinks/Week Comments Yes 0 (1 standard drink = 0.6 oz pur e alcohol) daily 4 servings daily [facility] Utilities Answer Date Recorded In the past 12 months has th e [employer], gas, oil, or water [employer] threatened to shut off services in your [...] living in a fpc (including now)? No 05/20/2024 Diaper Assistance Answer [...] Description 05/19/2025 11:30 AM EST Ancillary Procedure [facility] Department of Vascular Surgery [address] [place] [address] [address] [place] [address] Ann Collins PA-C [address] [place] [address] [place] [address] 05/19/2025 12:00 PM EST Office Visit [facility] [address] [place] [address] [address] [place] [address] Alfredo Moses MD [address] [place] [address] 06/28/2025 9:10 AM EST Office Visit [facility] Department of Family Medicine [address] [place] [address] Alo Mcgrath PA 1 [facility] [address] [place] [address] documented as of this encounter Visit Diagnoses Not on filedocumented in this encounter Care Teams Physics Professor Relationship Specialty Start Date End Date Izabella Francis APRN PCP - Insurance Payer PCP 06/01/23 Alo Mcgrath PA 1 [facility] [address] [place] [address] PCP - General Internal Medicine 02/21/25 documented as of this encounter
--- OUTSIDE RECORDS SUMMARY | 2025-04-04 17:33 | XMS_ITS | Encounter Summary ---
Author Organization [facility] Address [address] [place], [place] [address] Care Team Providers Care Manager Of Marketing Name Role Phone Brain Cyr DO Primary Care Provider [phone] Norma Rogel RN Unavailable Unavailable Encounter Details Date Type Department Care Team (Late st Contact Info) Description 11/12/2021 Prep for Surgery [facility] OPHTHALMOLOGY [address] [place] [address] Demetrius Thompson MD [address] [place] [address] Social History Tobacco Use Types Packs/Day Years [...] Resolved Time R/O COVID-19 (PUI) 11/14/2021 11/14/2021 06/21/202 2 7:25 AM EDT documented as of this encounter Care Teams Manager Of Marketing Relationship Specialty Start Date End Date Brain Cyr DO PCP - General 07/14/18 Norma Rogel, LONI CT Registered Nurse 07/14/18 documented as of this encounter
== END 2025-04-03 14:30 | disposition home or self-care (01) ==
LOC: HO.HOSX 14:29
PROVIDERS: Visit Provider Physician Assistant
DX: Z47.1 Aftercare following joint replacement surgery (principal); Z98.1 Arthrodesis status
CPT/HCPCS: 72050

== ENCOUNTER 2025-04-07 12:37 | Outpatient (REF) | payer BC, SELFPAY ==
--- NOTE | ~2025-04-07 | CT_ITS ---
EXAMINATION: CT CERVICAL SPINE WITHOUT CONTRAST CLINICAL INFORMATION: Arthrodesis status. COMPARISON: Radiographs of the cervical spine 04/03/2025. TECHNIQUE: Spiral CT imaging of the cervical spine performed in axial plane without contrast. Multiplanar reformatted images were constructed from the axial data set. This CT examination was performed using dose optimization techniques as appropriate, variously including the following: *Automated exposure control *Adjustment of mA and/or kV according to patient size (this includes techniques or standardized protocols for targeted exams where dose is matched to indication/reason for exam; i.e. extremities or head) *Use of iterative reconstruction technique FINDINGS: CORONAL ALIGNMENT: -Normal. SAGITTAL ALIGNMENT: -Straightening of the normal lordosis. -There is a trace anterolisthesis C3 on C4. There is a 3 mm retrolisthesis of C4 on C5. Sagittal alignment is otherwise anatomic. C1-C2 AND CRANIOCERVICAL JUNCTION: -Intact and normally aligned. There are mild to moderate degenerative changes in the anterior atlantoaxial joint. VERTEBRAL BODIES AND FACETS: -There has been anterior fusion and discectomy of C3-4, C4-5, and C5-6. There are disc prostheses at these levels with oblique endplate screws present. The hardware appears intact, well seated, without. Prosthetic fracture or lucency. -There is no acute fracture, compression deformity, or suspicious bone lesion. -There are bulky vertebral and disc osteophytes both ventrally and laterally spanning C3-C7, findings suggestive of DISH. -There is normal facet alignment. There are mild to moderate hypertrophic degenerative facet changes at C2-3 and C3-4 left greater than right. There are lesser changes at C4-5. -There are uncinate hypertrophic changes present bilaterally throughout the cervical spine, most notable at C4-C7. DISCS: -There are disc prostheses C3-4, C4-5, and C5-6. -Mild to moderate degenerative disc changes at C2-3, and moderate to severe changes at C6-C7 and C7-T1. CENTRAL CANAL: -No evidence of high-grade central canal narrowing or large disc herniation allowing for modality limitations. PREVERTEBRAL AND PARAVERTEBRAL SOFT TISSUES: -No significant prevertebral or paravertebral soft tissue swelling, or abnormal fluid collection. -There are moderate left greater than right carotid bulb calcifications. -The thyroid gland is mildly enlarged and somewhat heterogeneous. There are right lobe macrocalcifications. LUNG APICES: -Clear bilaterally. IMAGED INTRACRANIAL CONTENTS: -Normal. CT/CT cervical spine wo IV con IMPRESSION: 1. Anterior fusion with discectomy of C3-4, C4-5, and C5-6, without evidence of complication. There is no evidence of acute fracture of the cervical spine. 2. Moderate cervical spondylosis as detailed. Bulky ventral vertebral and disc osteophytes spanning C3-C7, suggestive of DISH. Electronically signed by: Dwight Dunne MD 04/07/2025 01:41 PM EST
--- OUTSIDE RECORDS SUMMARY | 2025-04-07 14:49 | XMS_ITS | Encounter Summary ---
Author Organization [facility] Address [address] [place] [address] Care Team Providers Care Edging Machine Operator Name Role Phone Brain Cyr DO Primary Care Provider [phone] Norma Rogel RN Unavailable Unavailable Encounter Details Date Type Department Care Team (Late st Contact Info) Description 03/07/2025 Scanned Document [facility] at Home [address] [facility] [address] [place] [address] Provider, Generic Social History Tobacco Use Types Packs/Day Years Used Date Smoking Tobacco: Former Cigarettes 1 10 0 07/14/1989 - 07/14/1999 Smokeless Tobacco: Never Alcohol Use Standard Drinks/Week Comments Yes 14 (1 standard drink = 0.6 oz pure alcohol) 2 vy, 2 shots liquor nightly, will stop pre op . Last drink 6 days ago. [facility] Utilities Answer Date Recorded In the past 12 months has [employer], [employer], oil, or water [employer] threatened to shut off services in your [...] any time in the past 12 m [facility], were you homeless or [...] on filedocumented in this encounter Care Teams Edging Machine Operator Relationship Specialty Start Date End Date Brain Cyr DO PCP - General 07/14/18 Norma Rogel, LONI CT Registered Nurse 07/14/18 documented as of this encounter
--- OUTSIDE RECORDS SUMMARY | 2025-04-07 14:49 | XMS_ITS | Encounter Summary ---
Author Organization [facility] Address [address] [place] [address] Care Team Providers Care Activities Leader Name Role Phone Brain Cyr DO Primary Care Provider Norma Rogel RN Unavailable Unavailable Encounter Details Date Type Department Care Team (Late st Contact Info) Description 03/04/2025 Scanned Document [facility] at Home 12[address] [facility] [address] [place] [address] Provider, Generic Social History Tobacco Use Types Packs/Day Years Used Date Smoking Tobacco: Former Cigarettes 1 10 0 07/14/1989 - 07/14/1999 Smokeless Tobacco: Never Alcohol Use Standard Drinks/Week Comments Yes 14 (1 standard drink = 0.6 oz pure alcohol) 2 vy, 2 shots liquor nightly, will stop pre op . Last drink 6 days ago. [facility] Utilities Answer Date Recorded In the past 12 months has [employer], [employer], oil, or water [id number] threatened to shut off services in your [...] any time in the past 12 m [facility], were you homeless or living [...] on filedocumented in this encounter Care Teams Activities Leader Relationship Specialty Start Date End Date Brain Cyr DO PCP - General 07/14/18 Norma Rogel, LONI [place] Registered Nurse 07/14/18 documented as of this encounter
--- OUTSIDE RECORDS SUMMARY | 2025-04-07 14:49 | XMS_ITS | Encounter Summary ---
Author Organization [facility] Address [address] [place] [address] Care Team Providers Care Taffy Puller Name Role Phone Brain Cyr DO Primary Care Provider [phone] Norma Rogel RN Unavailable Unavailable Encounter Details Date Type Department Care Team (Late st Contact Info) Description 04/04/2025 Scanned Document [facility] at Home 12[address] [facility] [address] [place] [address] Provider, Generic Social History Tobacco Use Types Packs/Day Years Used Date Smoking Tobacco: Former Cigarettes 1 10 0 07/14/1989 - 07/14/1999 Smokeless Tobacco: Never Alcohol Use Standard Drinks/Week Comments Yes 14 (1 standard drink = 0.6 oz pure alcohol) 2 vy, 2 shots liquor nightly, will stop pre op . Last drink 6 days ago. [facility] Utilities Answer Date Recorded In the past 12 months has [employer], [employer], oil, or water [employer] threatened to shut off services in your [...] any time in the past 12 m [facility], were you homeless or living [...] on filedocumented in this encounter Care Teams Taffy Puller Relationship Specialty Start Date End Date Brain Cyr DO PCP - General 07/14/18 Norma Rogel, LONI [place] Registered Nurse 07/14/18 documented as of this encounter
--- OUTSIDE RECORDS SUMMARY | 2025-04-07 14:49 | XMS_ITS | Encounter Summary ---
Author Organization [facility] Address [address] [place] [address] Care Team Providers Care Tire Beader Maker Name Role Phone Brain Cyr DO Primary Care Provider [phone] Norma Rogel RN Unavailable Unavailable Encounter Details Date Type Department Care Team (Late st Contact Info) Description 03/31/2025 Scanned Document [facility] at [facility] [address] [facility] [address] [place] [address] Provider, Generic Social History Tobacco Use Types Packs/Day Years Used Date Smoking Tobacco: Former Cigarettes 1 10 0 07/14/1989 - 07/14/1999 Smokeless Tobacco: Never Alcohol Use Standard Drinks/Week Comments Yes 14 (1 standard drink = 0.6 oz pure alcohol) 2 vy, 2 shots liquor nightly, will stop pre op . Last drink 6 days ago. [facility] Utilities Answer Date Recorded In the past 12 months has [employer], [employer], oil, or water New Body MD threatened to shut off services in your [...] any time in the past 12 m [facility], were you homeless or living [...] on filedocumented in this encounter Care Teams Tire Beader Maker Relationship Specialty Start Date End Date Brain Cyr DO PCP - General 07/14/18 Norma Rogel, LONI [place] Registered Nurse 07/14/18 documented as of this encounter
--- OUTSIDE RECORDS SUMMARY | 2025-04-07 14:49 | XMS_ITS | Encounter Summary ---
Author Organization [facility] Address [address] [place] [address] Care Team Providers Care Recreation Facility Attendant Name Role Phone Brain Cyr DO Primary Care Provider [phone] Norma Rogel RN Unavailable Unavailable Encounter Details Date Type Department Care Team (Late st Contact Info) Description 03/28/2025 Scanned Document [facility] at Home [address] [facility] [address] [place] [address] Provider, Generic Social History Tobacco Use Types Packs/Day Years Used Date Smoking Tobacco: Former Cigarettes 1 10 0 07/14/1989 - 07/14/1999 Smokeless Tobacco: Never Alcohol Use Standard Drinks/Week Comments Yes 14 (1 standard drink = 0.6 oz pure alcohol) 2 vy, 2 shots liquor nightly, will stop pre op . Last drink 6 days ago. [facility] Utilities Answer Date Recorded In the past 12 months has [employer], [employer], oil, or water [employer] threatened to shut off services in your [...] any time in the past 12 m [facility], were you homeless or living in a [...] on filedocumented in this encounter Care Teams Recreation Facility Attendant Relationship Specialty Start Date End Date Brain Cyr DO PCP - General 07/14/18 Norma Rogel, LONI [place] Registered Nurse 07/14/18 documented as of this encounter
--- OUTSIDE RECORDS SUMMARY | 2025-04-07 14:49 | XMS_ITS | Encounter Summary ---
Author Organization [facility] Address [address] [place] [address] Care Team Providers Care Educational Technologist Name Role Phone Brain Cyr DO Primary Care Provider [phone] Norma Rogel RN Unavailable Unavailable Encounter Details Date Type Department Care Team (Late st Contact Info) Description 02/27/2025 Scanned Document [facility] at Home [address] [facility] [address] [place] [address] Provider, Generic Social History Tobacco Use Types Packs/Day Years Used Date Smoking Tobacco: Former Cigarettes 1 10 0 07/14/1989 - 07/14/1999 Smokeless Tobacco: Never Alcohol Use Standard Drinks/Week Comments Yes 14 (1 standard drink = 0.6 oz pure alcohol) 2 vy, 2 shots liquor nightly, will stop pre op . Last drink 6 days ago. [facility] Utilities Answer Date Recorded In the past 12 months has [employer], [employer], oil, or water [employer] threatened to shut off services in your [...] any time in the past 12 m [facility], were you homeless or [...] on filedocumented in this encounter Care Teams Educational Technologist Relationship Specialty Start Date End Date Brain Cyr DO PCP - General 07/14/18 Norma Rogel, LONI [place] Registered Nurse 07/14/18 documented as of this encounter
--- OUTSIDE RECORDS SUMMARY | 2025-04-07 14:49 | XMS_ITS | Encounter Summary ---
Author Organization [facility] Address [address] [place] [address] Care Team Providers Care Airport Operations Duty Manager Name Role Phone Brain Cyr DO Primary Care Provider Norma Rogel RN Unavailable Unavailable Encounter Details Date Type Department Care Team (Late st Contact Info) Description 03/02/2025 Scanned Document [facility] at Home [address] [facility] [address] [place] [address] Provider, Generic Social History Tobacco Use Types Packs/Day Years Used Date Smoking Tobacco: Former Cigarettes 1 10 0 07/14/1989 - 07/14/1999 Smokeless Tobacco: Never Alcohol Use Standard Drinks/Week Comments Yes 14 (1 standard drink = 0.6 oz pure alcohol) 2 vy, 2 shots liquor nightly, will stop pre op . Last drink 6 days ago. [facility] Utilities Answer Date Recorded In the past 12 months has [employer], [employer], oil, or water [employer] threatened to shut off services in your [...] on filedocumented in this encounter Care Teams Airport Operations Duty Manager Relationship Specialty Start Date End Date Brain Cyr DO PCP - General 07/14/18 Norma Rogel, LONI [place] Registered Nurse 07/14/18 documented as of this encounter
--- OUTSIDE RECORDS SUMMARY | 2025-04-07 14:49 | XMS_ITS | Encounter Summary ---
Author Organization [facility] Address [address] [place] [address] Care Team Providers Care Slubber Frame Changer Name Role Phone Brain Cyr DO Primary Care Provider [phone] Norma Rogel RN Unavailable Unavailable Encounter Details Date Type Department Care Team (Late st Contact Info) Description 03/03/2025 Scanned Document [facility] at Home 12[address] [facility] [address] [place] [address] Provider, Generic Social History Tobacco [...] Recorded In the past 12 months has [employer], [employer] oil, or water [employer] threatened to shut off services in your [...] on filedocumented in this encounter Care Teams Slubber Frame Changer Relationship Specialty Start Date End Date Brain Cyr DO PCP - General 07/14/18 Norma Rogel, LONI [place] Registered Nurse 07/14/18 documented as of this encounter
--- OUTSIDE RECORDS SUMMARY | 2025-04-07 14:49 | XMS_ITS | Encounter Summary ---
Author Organization [facility] Address [address] [place] [address] Care Team Providers Care Chamber Of Commerce Division Manager Name Role Phone Brain Cyr DO Primary Care Provider [phone] Norma Rogel RN Unavailable Unavailable Encounter Details Date Type Department Care Team (Late st Contact Info) Description 02/18/2025 Scanned Document [facility] at Home 12[address] [facility] [address] [place] [address] Provider, Generic Social History Tobacco Use Types Packs/Day Years Used Date Smoking Tobacco: Former Cigarettes 1 10 0 07/14/1989 - 07/14/1999 Smokeless Tobacco: Never Alcohol Use Standard Drinks/Week Comments Yes 14 (1 standard drink = 0.6 oz pure alcohol) 2 vy, 2 shots liquor nightly, will stop pre op . Last drink 6 days ago. [facility] Utilities Answer Date Recorded In the past 12 months has [employer], [employer], oil, or water [employer] threatened to shut off services in your [...] time in the past 12 m [facility], were you homeless or living in [...] on filedocumented in this encounter Care Teams Chamber Of Commerce Division Manager Relationship Specialty Start Date End Date Brain Cyr DO PCP - General 07/14/18 Norma Rogel, LONI [place] Registered Nurse 07/14/18 documented as of this encounter
--- OUTSIDE RECORDS SUMMARY | 2025-04-07 14:49 | XMS_ITS | Encounter Summary ---
Author Organization [facility] Address [address] [place] [address] Care Team Providers Care Assessor Name Role Phone Brain Cyr DO Primary Care Provider [phone] Norma Rogel RN Unavailable Unavailable Encounter Details Date Type Department Care Team (Late st Contact Info) Description 02/17/2025 Scanned Document [facility] at Home 12[address] [facility] [address] [place] [address] Provider, Generic Social History Tobacco Use Types Packs/Day Years Used Date Smoking Tobacco: Former Cigarettes 1 10 0 07/14/1989 - 07/14/1999 Smokeless Tobacco: Never Alcohol Use Standard Drinks/Week Comments Yes 14 (1 standard drink = 0.6 oz pure alcohol) 2 vy, 2 shots liquor nightly, will stop pre op . Last drink 6 days ago. [facility] Utilities Answer Date Recorded In the past 12 months has [employer]me[employer], [employer], oil, or water [employer] threatened to shut off services in your [...] time in the past 12 m [facility], were you homeless or living in [...] on filedocumented in this encounter Care Teams Assessor Relationship Specialty Start Date End Date Brain Cyr DO PCP - General 07/14/18 Norma Rogel, LONI CT Registered Nurse 07/14/18 documented as of this encounter
--- OUTSIDE RECORDS SUMMARY | 2025-04-07 14:49 | XMS_ITS | Encounter Summary ---
Author Organization [facility] Address [address] [place] [address] Care Team Providers Care Multicraft Operator Name Role Phone Brain Cyr DO Primary Care Provider [phone] Norma Rogel RN Unavailable Unavailable Encounter Details Date Type Department Care Team (Late st Contact Info) Description 03/06/2025 Scanned Document [facility] at Home [address] [facility] [address] [place] [address] Provider, Generic Social History Tobacco Use Types Packs/Day Years Used Date Smoking Tobacco: Former Cigarettes 1 10 0 07/14/1989 - 07/14/1999 Smokeless Tobacco: Never Alcohol Use Standard Drinks/Week Comments Yes 14 (1 standard drink = 0.6 oz pure alcohol) 2 vy, 2 shots liquor nightly, will stop pre op . Last drink 6 days ago. [facility] Utilities Answer Date Recorded In the past 12 months has [employer], [employer], oil, or water [employer] threatened to shut off services in your [...] on filedocumented in this encounter Care Teams Multicraft Operator Relationship Specialty Start Date End Date Brain Cyr DO PCP - General 07/14/18 Norma Rogel, LONI [place] Registered Nurse 07/14/18 documented as of this encounter
--- OUTSIDE RECORDS SUMMARY | 2025-04-07 14:49 | XMS_ITS | Encounter Summary ---
Author Organization [facility] Address [address] [place] [address] Care Team Providers Care B2B Outside Sales Representative Name Role Phone Brain Cyr DO Primary Care Provider [phone] Norma Rogel RN Unavailable Unavailable Encounter Details Date Type Department Care Team (Late st Contact Info) Description 02/16/2025 Scanned Document [facility] at Home [address] [facility] [address] [place] [address] Provider, Generic Social History Tobacco Use Types Packs/Day Years Used Date Smoking Tobacco: Former Cigarettes 1 10 0 07/14/1989 - 07/14/1999 Smokeless Tobacco: Never Alcohol Use Standard Drinks/Week Comments Yes 14 (1 standard drink = 0.6 oz pure alcohol) 2 vy, 2 shots liquor nightly, will stop pre op . Last drink 6 days ago. [facility] Utilities Answer Date Recorded In the past 12 months has [employer], [employer], oil, or water [employer] threatened to shut off services in your [...] on filedocumented in this encounter Care Teams B2B Outside Sales Representative Relationship Specialty Start Date End Date Brain Cyr DO PCP - General 07/14/18 Norma Rogel, LONI [place] Registered Nurse 07/14/18 documented as of this encounter
--- OUTSIDE RECORDS SUMMARY | 2025-04-07 14:49 | XMS_ITS | Encounter Summary ---
Author Organization [facility] Address [address] [place] [address] Care Team Providers Care Enrollment Representative Name Role Phone Izabella Francis APRN Unavailable [phone] Alo Mcgrath Primary Care Provider [phone] Encounter Details Date Type Department Care Team (Late st Contact Info) Description 05/14/2023 Orders Only [facility] Department of Family Medicine [address] [place] [address] Brain Cyr F, DO Elevated [...] Description 05/19/2025 11:30 AM EST Ancillary Procedure [facility] [address] [place] [address] [address] [place] [phone] Ann Collins PA-C [address] [facility] [place] [address] 05/19/2025 12:00 PM EST Office Visit [facility] [address] [place] [address] [address] [place] [phone] Alfredo Moses MD [address] [place] [address] 06/28/2025 9:10 AM EST Office Visit [facility] [address] [place] [address] Alo Mcgrath PA [address] [facility] [address] [place] [address] documented as of this encounter Visit Diagnoses Diagnosis Elevated PSA- Primary Elevated prostate specific antigen (PSA) Essential hypertension Unspecified essential hypertension Hypertensive heart disease without heart failure Unspecified hypertensive heart disease without heart failure Noncompliance Obstructive sleep apnea syndrome Obstructive sleep apnea (adult) (pediatric) Primary osteoarthritis involving multiple joints documented in this encounter Care Teams Enrollment Representative Relationship Specialty Start Date End Date Izabella Francis APRN PCP - Insurance Payer PCP 06/01/23 Alo Mcgraht PA [address] [address] PCP - General Internal Medicine 02/21/25 documented as of this encounter
--- OUTSIDE RECORDS SUMMARY | 2025-04-07 14:49 | XMS_ITS | Encounter Summary ---
Author Organization [facility] Address [address] [place] [address] Care Team Providers Care Mussel Farmer Name Role Phone Brain Cyr DO Primary Care Provider [phone] Norma Rogel RN Unavailable Unavailable Encounter Details Date Type Department Care Team (Late st Contact Info) Description 11/26/2023 Scanned Document [facility] [address] [address] Demetrius Gonzalez MD [address] [facility] [address] [place] [address] Social History Tobacco Use Types Packs/Day Years [...] on filedocumented in this encounter Care Teams Mussel Farmer Relationship Specialty Start Date End Date Brain Cyr DO PCP - General 07/14/18 Norma Rogel, LONI [place] Registered Nurse 07/14/18 documented as of this encounter
--- OUTSIDE RECORDS SUMMARY | 2025-04-07 14:49 | XMS_ITS | Clinical Summary ---
Author Organization [facility] Address [address] [place] [address] Care Team Providers Care Hr Associate Name Role Phone Brain Cyr DO Primary Care Provider [phone] Norma Rogel RN Unavailable Unavailable Allergies No [...] Encounters Date Type Department Care Team Description 04/05/2025 Scanned Document [facility] [address] [address] Provider, Generic 04/04/2025 Scanned Document [facility] [address] [address] Provider, Generic 03/31/2025 Scanned Document [facility] [address] [address] Provider, Generic 03/29/2025 Scanned Document [facility] [address] [address] Provider, Generic 03/28/2025 Scanned Document [facility] [address] [place] [place] [address] Provider, Generic 03/24/2025 2:30 PM EDT Procedure visit [facility] [address] [place] [address] [address] [place] [address] Venu Mantilla, RN Encounter for Phoenix catheter removal (Primary Dx); Urinary retention 03/24/2025 8:00 AM EDT Procedure visit [facility] [address] [place] [address] [address] [place] [address] Venu Mantilla RN Encounter for Phoenix catheter removal (Primary Dx) 03/24/2025 Travel 03/23/2025 Scanned Document [facility] [address] [place] [address] Provider, Generic 03/22/2025 Scanned Document [facility] [address] [place] [address] Provider, Generic 03/21/2025 Scanned Document [facility] [address] [address] Provider, Generic 03/17/2025 Scanned Document [facility] [address] [address] Provider, Generic 03/15/2025 Scanned Document [facility] [address] [place] [address] Provider, Generic 03/14/2025 Scanned Document [facility] [address] [place] [address] Provider, Generic 03/13/2025 Scanned Document [facility] [address] [address] Provider, Generic 03/11/2025 Scanned Document [facility] [address] [place] [address] Provider, Generic 03/10/2025 Scanned Document [facility] [address] [place] [address] Provider, Generic 03/08/2025 Scanned Document [facility] [address] [place] [address] Provider, Generic 03/07/2025 Scanned Document [facility] [address] [place] [address] Provider, Generic 03/06/2025 Scanned Document [facility] [address] [place] [address] Provider, Generic 03/04/2025 Scanned Document [facility] [address] [place] [address] Provider, Generic 03/03/2025 Scanned Document [facility] [address] [place] [address] Provider, Generic 03/02/2025 4:00 PM EDT Procedure visit [facility] [address] [place] [phone] Keith Kumar LPN Benign prostatic hyperplasia with urinary retention (Primary Dx) 03/02/2025 10:00 AM EDT Procedure visit [facility] [address] [place] [phone] Keith Kumar LPN Encounter for Phoenix catheter removal (Primary Dx) 03/02/2025 Scanned Document [facility] [address] [place] [address] Provider, Generic 03/02/2025 Travel 02/28/2025 Scanned Document [facility] [address] [place] [address] Provider, Generic 02/27/2025 Scanned Document [facility] [address] [facility] [address] [place] [address], [place] [address] Provider, Generic 02/21/2025 Scanned Document [facility] [address] [place] [address] Provider, Generic 02/19/2025 Scanned Document [facility] [address] [place] [address] Provider, Generic 02/18/2025 Scanned Document [facility] [address] [place] [address] Provider, Generic 02/17/2025 Scanned Document [facility] [address] [place] [address] Provider, Generic 02/16/2025 1:30 PM EDT Clinical Support [facility] [address] [place] [address] Rocio Amaral RN Benign prostatic hyperplasia with urinary retention (Primary Dx) 02/16/2025 Scanned Document [facility] [address] [place] [address] Provider, Generic 02/15/2025 7:30 AM EDT Office Visit [facility] [address] [place] [address] Esthela Kaye APRN Benign prostatic hyperplasia with urinary retention (Primary Dx); Indwelling Phoenix catheter present 02/15/2025 Travel 01/09/2025 1:54 PM EDT - 01/10/2025 4:58 PM EDT Hospital Encounter [facility] [address] [place] [phone] Alex Brar MD Lu, MD Lupillo Cervical [...] op . Last drink 6 days ago. [facility] Utilities Answer Date Recorded In the past 12 months has [employer], [employer], oil, or water [employer] threatened to shut off services in your [...] this topic Medical Devices Implanted Type Area Crm Marketing Manager Device Identifier Shelf Expiration Date Model / Serial / Lot [id number] Cement Bone [employer] R 40gm Grn - [id number] Implanted:Qty : 2 on 05/12/2019 by Reagan Deleon MD at [facility] Cement Right: Knee [employer] 07/29/2022 [id number] / / [id number] Shell Acetabular 54mm Hip Prim Ch Trlg Sterl - [id number] Implanted:Qty : 1 on 08/18/2018 by Reagan Deleon MD at [facility] Joint Prosthesis Right: Hip [employer] [id number] 05/31/2028 [id number] / / [id number] Liner Acetabular Trlg Std Neutral 6.3mm 50/52/54mm 32mm - [id number] Implanted:Qty : 1 on 08/18/2018 by Reagan Deleon MD at [facility] Joint Prosthesis Right: Hip [employer] [id number] 02/28/2023 [id number] / / [id number] Stem Femoral 124mm 12.5mm Prim Zm M/L Taper Tiv Por /14 50 - [id number] Implanted:Qty : 1 on 08/18/2018 by Reagan Deleon MD at [facility] Joint Prosthesis Right: Hip [employer] [id number] 02/29/2028 [id number] / / [id number] Head Femoral 0mm /14 Taper 32mm Hip Blx D Trlg It Contin - [id number] Implanted:Qty : 1 on 08/18/2018 by Reagan Deleon MD at [facility] Joint Prosthesis Right: Hip [employer] [id number] 02/29/2028 [id number] / / [id number] Restrictor Bncmnt 25mm Ace 16-21mm Hip Femoral Plug Sterl - [id number] Implanted:Qty : 1 on 05/12/2019 by Reagan Deleon MD at [facility] Joint Prosthesis Right: Knee [employer] - DIV S [id number] 03/08/2029 [id number] / / [id number] Component Femoral 8 Std Knee Right Crcte Rtn Cmnt Persona - [id number] Implanted:Qty : 1 on 05/12/2019 by Reagan Deleon MD at [facility] Joint Prosthesis Right: Knee [employer] [id number] 02/28/2029 [id number] / / [id number] Component Patellar 35mm Persona Alply Knee Lf - [id number] Implanted:Qty : 1 on 05/12/2019 by Reagan Deleon MD at [facility] Joint Prosthesis Right: Knee [employer] [id number] 10/29/2026 [id number] / / [id number] Baseplate Tibial Persona Ntr Tibia 5d F Knee Right Stem - [id number] Implanted:Qty : 1 on 05/12/2019 by Reagan Deleon MD at [facility] Joint Prosthesis Right: Knee [employer] [id number] 11/28/2028 [id number] / / [id number] Insert Articular 3-11 E-F 11mm Knee Right Crcte Rtn Polyethe - [id number] Implanted:Qty : 1 on 05/12/2019 by Reagan Deleon MD at [facility] Joint Prosthesis Right: Knee [employer] [id number] 11/28/2026 [id number] / / [id number] Screw Bone Acetabular Jarvis Trlg 40mm 6.5mm Slftp Sterl - [id number] Implanted:Qty : 1 on 08/18/2018 by Reagan Deleon MD at [facility] Screw Right: Hip [employer] [id number] 05/31/2028 [id number] / / [id number] Procedures Procedure Name Priority Date/Time Associated Diagnosis [...] of2 resultswithin the time period is included. White Blood Cell Count 8.8 3.8 - 10.8 Thousand/ uL [facility] Red Blood Cell Count 4.07(L) 4.20 - 5.80 Million/u L [facility] Hemoglobin 13.1(L) 13.2 - 17.1 g/dL [facility] Hematocrit 39.8 38.5 - 50.0 % [facility] MCV 97.8 80.0 - 100.0 fL [facility] MCH 32.2 27.0 - 33.0 pg [facility] MCHC 32.9 32.0 - 36.0 g/dL [facility] Comment: For adults, a slight decrease in the calculated MCHC value (in the range of 30 to 32 g/dL) is most likely not clinically significant; however, it should be interpreted with caution in correlation with other red cell parameters and the patient's clinical condition. RDW 11.9 11.0 - 15.0 % [facility] Platelet Count 292 140 - 400 Thousand/ uL [facility] MPV 9.9 7.5 - 12.5 fL [facility] Abs Neutrophils Auto 5,852 1,500 - 7,800 cells/uL [facility] Abs Lymphocytes Auto 1,874 850 - 3,900 cells/uL [facility] Abs Monocytes Auto 625 200 - 950 cells/uL [facility] Abs Eosinophils Auto 405 15 - 500 cells/uL [facility] Abs Basophils Auto 44 0 - 200 cells/uL [facility] Neutrophils Auto 66.5 % [facility] Lymphocytes Auto 21.3 % [facility] Monocytes Auto 7.1 % [facility] Eosinophils Auto 4.6 % [facility] Basophils Auto 0.5 % [facility] Blood Blood specimen / Unknown 02/27/2025 10:25 AM EDT 02/27/2025 10:25 AM EDT Narrative [facility] - 02/28/2025 11:10 AM EDT FASTING:NO FASTING: NO Esthela Kaye APRN LAB BLOOD ORDERABLES Final Result Performing Organization Address [facility] de Phone Number [facility] [address] [place] [address] * (ABNORMAL) Basic Metabolic Panel (02/27/2025 10:25 AM EDT) Pathologist [facility] Glucose 145(H) 65 - 139 mg/dL [facility] Comment: Non-fasting reference interval Blood Urea Nitrogen (BUN) 9 7 - 25 mg/dL [facility] Creatinine 0.73 0.70 - 1.35 mg/dL [facility] Creatinine w/ eGFR 102 > OR = 60 mL/min/1. 73m2 [facility] BUN/Creatinine Ratio SEE NOTE: 6 - 22 (calc) [facility] Comment: Not Reported: BUN and Creatinine are within reference range. Sodium 141 135 - 146 mmol/L [facility] Potassium 3.7 3.5 - 5.3 mmol/L [facility] Chloride 107 98 - 110 mmol/L [facility] CO2 27 20 - 32 mmol/L [facility] Calcium 9.4 8.6 - 10.3 mg/dL [facility] Blood Blood specimen / Unknown 02/27/2025 10:25 AM EDT 02/27/2025 10:25 AM EDT Narrative [facility] - 02/28/2025 11:10 AM EDT FASTING:NO FASTING: NO us Esthela Kaye APRN LAB BLOOD ORDERABLES Final Result Performing Organization Address [facility] de Phone Number [facility] [address] [place] [address] * XR Cervical spine 2 or 3 [...] anterolisthesis of C3 on C4. Izabella MARIEE [facility] ORDLos RAMOS Final Result * [...] Critical finding has been communicated to Radiology Perch Machine Inspector for provider notification via the [employer] Actionable Findings Application on 01/09/2025 8:57 PM, Message ID [id number]. Narrative 01/09/2025 8:57 PM EDT EXAM: MRI [...] Critical finding has been communicated to Radiology Perch Machine Inspector forprovider notification via the [employer] Actionable FindingsApplication on 01/09/2025 8:57 PM, Message ID [id number]. us Alex Brar MD IMG MRI ORDERABLES [...] appear normal. Lung apices are clear. Specific sbuqx-ux-mdhvb: C2-C3: No spinal canal stenosis. Severe facet [...] appear normal. Lung apices are clear. Specific vtbas-dy-lwnyo: C2-C3: No spinal canal stenosis. Severe facet [...] the cervical spine without contrast. Izabella MARIEE IMReggie CT ORDERABLES Final Res ult * Magnesium (01/09/2025 2:56 PM EDT) Magnesium 2.0 1.6 - 2.7 mg/dL 01/09/2025 3:47 PM EDT [facility] Blood Blood specimen / Unknown 01/09/2025 2:56 PM EDT 01/09/2025 3:17 PM EDT Izabella MARIEE LAB BLOOD ORDERABLES Final Result [facility] [address] [place] [address], [facility] [address] [place] [address] * (ABNORMAL) Comprehensive Metabolic Panel (01/09/2025 2:56 PM EDT) Glucose 235(H) 65 - 99 mg/dL 01/09/2025 3:47 PM EDT [facility] Comment:Fasting: <100 mg/dL, Non-Fasting: <200 mg/dL (ADA 2005) Blood Urea Nitrogen (BUN) 17 8 - 21 mg/dL 01/09/2025 3:47 PM EDT [facility] Creatinine 0.7 0.5 - 1.3 mg/dL 01/09/2025 3:47 PM EDT [facility] eGFR >90 >59 01/09/2025 3:47 PM EDT [facility] Comment:CKD-EPI (2020) in mL /min/1.73 sq meters. Sodium 144 136 - 145 mmol/L 01/09/2025 3:47 PM EDT [facility] Potassium 3.7 3.4 - 5.3 mmol/L 01/09/2025 3:47 PM EDT [facility] Chloride 104 98 - 107 mmol/L 01/09/2025 3:47 PM EDT [facility] CO2 22 22 - 33 mmol/L 01/09/2025 3:47 PM EDT [facility] Calcium 9.3 8.7 - 10.5 mg/dL 01/09/2025 3:47 PM EDT [facility] Alkaline Phosphatase 87 45 - 128 U/L 01/09/2025 3:47 PM EDT [facility] Aspartate Aminotrans (AST) 40 10 - 55 U/L 01/09/2025 3:47 PM EDT [facility] Comment:Specimen hemolyzed. Results may be artifactually elevated. Alanine Aminotrans (ALT) 32 10 - 55 U/L 01/09/2025 3:47 PM EDT [facility] Bilirubin, Total 0.5 0.2 - 1.0 mg/dL 01/09/2025 3:47 PM EDT [facility] Protein, Total 7.0 6.3 - 8.3 g/dL 01/09/2025 3:47 PM EDT [facility] Albumin 3.9 3.4 - 4.8 g/dL 01/09/2025 3:47 PM EDT [facility] BUN/Creatinine Ratio 24 10.0 - 25.0 Ratio 01/09/2025 3:47 PM EDT [facility] Globulin 3.1 1.5 - 3.9 g/dL 01/09/2025 3:47 PM EDT [facility] Albumin/Globulin Ratio 1.3 Ratio 01/09/2025 3:47 PM EDT [facility] Anion Gap 18(H) 7 - 17 01/09/2025 3:47 PM EDT [facility] Blood Blood specimen / Unknown 01/09/2025 2:56 PM EDT 01/09/2025 3:17 PM EDT us Izabella MARIEE LAB BLOOD ORDERABLES Final Result [facility] [address] [place] [address], [facility] [address] [place] [address] * Lyme IgG/IgM with Reflex to ISABELLE (01/09/2025 2:53 PM EDT) [facility] Lyme IgG/IgM Antibody Screen Negative Negative 01/11/2025 [...] 2:53 PM EDT 01/09/2025 3:17 PM EDT us Izabella MARIEE LAB BLOOD ORDERABLES Final Result [facility] [address] [place] [address], * HX GASTROENTEROLOGY COLONOSCOPY-SCAN (11/26/2023 11:14 AM EDT) Demetrius Gonzalez MD HX AMB PROCEDURES Final Resu lt from Last 3 Months or Most Recently Relevant to Health Maintenance Insurance [employer] INDIVIDUAL EXCHANGE PPO [employer] INDIVIDUAL EXCHANGE PPO [employer] INDIVIDUAL EXCHANGE PPO Advance Directives * Full [...] 3:19 PM 05/12/2019 9:17 AM Care Teams Hr Associate Relationship Specialty Start Date End Date Brain Cyr DO PCP - General 07/14/18 Norma Rogel, LONI [place] Registered Nurse 07/14/18
--- OUTSIDE RECORDS SUMMARY | 2025-04-07 14:49 | XMS_ITS | Encounter Summary ---
Author Organization [facility] Address [address] [place] [address] Care Team Providers Care Plastic Dolls Mold Filler Name Role Phone Brain Cyr DO Primary Care Provider [phone] Norma Rogel RN Unavailable Unavailable Encounter Details Date Type Department Care Team (Late st Contact Info) Description 03/29/2025 Scanned Document [facility] at Home [address] [facility] [address] [place] [address] Provider, Generic Social History Tobacco Use Types Packs/Day Years Used Date Smoking Tobacco: Former Cigarettes 1 10 0 07/14/1989 - 07/14/1999 Smokeless Tobacco: Never Alcohol Use Standard Drinks/Week Comments Yes 14 (1 standard drink = 0.6 oz pure alcohol) 2 vy, 2 shots liquor nightly, will stop pre op . Last drink 6 days ago. [facility] Utilities Answer Date Recorded In the past 12 months has [employer], [employer], oil, or water [employer] threatened to shut off services in your [...] any time in the past 12 m [facility], were you homeless or living [...] on filedocumented in this encounter Care Teams Plastic Dolls Mold Filler Relationship Specialty Start Date End Date Brain Cyr DO PCP - General 07/14/18 Norma Rogel, LONI [place] Registered Nurse 07/14/18 documented as of this encounter
--- OUTSIDE RECORDS SUMMARY | 2025-04-07 14:49 | XMS_ITS | Encounter Summary ---
Author Organization [facility] Address [address] [place] [address] Care Team Providers Care Fire Hydrant Operator Name Role Phone Brain Cyr DO Primary Care Provider [phone] Norma Rogel RN Unavailable Unavailable Encounter Details Date Type Department Care Team (Late st Contact Info) Description 05/11/2023 Scanned Document [facility] [place] at [address] [address] Orthopedic Surgery, Scan Social History [...] on filedocumented in this encounter Care Teams Fire Hydrant Operator Relationship Specialty Start Date End Date Brain Cyr DO PCP - General 07/14/18 Norma Rogel, RN [place] Registered Nurse 07/14/18 documented as of this encounter
--- OUTSIDE RECORDS SUMMARY | 2025-04-07 14:49 | XMS_ITS | Encounter Summary ---
Author Organization [facility] Address [address] [place] [address] Care Team Providers Care Sales Training Manager Name Role Phone Brain yCr DO Primary Care Provider [phone] Norma Rogel RN Unavailable Unavailable Encounter Details Date Type Department Care Team (Late st Contact Info) Description 02/19/2025 Scanned Document [facility] [address] [facility] [address] [place] [address] Provider, Generic Social History Tobacco Use Types Packs/Day Years Used Date Smoking Tobacco: Former Cigarettes 1 10 0 07/14/1989 - 07/14/1999 Smokeless Tobacco: Never Alcohol Use Standard Drinks/Week Comments Yes 14 (1 standard drink = 0.6 oz pure alcohol) 2 vy, 2 shots liquor nightly, will stop pre op . Last drink [address] [facility] Utilities Answer Date Recorded In the past 12 months has invi, [employer], oil, or water [employer] threatened to shut off services in your [...] any time in the past 12 m [facility], were you homeless or [...] on filedocumented in this encounter Care Teams Sales Training Manager Relationship Specialty Start Date End Date Brain Cyr DO PCP - General 07/14/18 Norma Rogel, LONI [place] Registered Nurse 07/14/18 documented as of this encounter
--- OUTSIDE RECORDS SUMMARY | 2025-04-07 14:49 | XMS_ITS | Encounter Summary ---
Author Organization [facility] Address [address] [place] [address] Care Team Providers Care Broadband Installer Name Role Phone Brain Cyr DO Primary Care Provider [phone] Norma Rogel RN Unavailable Unavailable Encounter Details Date Type Department Care Team (Late st Contact Info) Description 02/21/2025 Scanned Document [facility] at Home [address] [facility] [address] [place] [address] Provider, Generic Social History Tobacco Use Types Packs/Day Years Used Date Smoking Tobacco: Former Cigarettes 1 10 0 07/14/1989 - 07/14/1999 Smokeless Tobacco: Never Alcohol Use Standard Drinks/Week Comments Yes 14 (1 standard drink = 0.6 oz pure alcohol) 2 vy, 2 shots liquor nightly, will stop pre op . Last drink 6 days ago. [facility] Utilities Answer Date Recorded In the past 12 months has [employer], Xyl[employer], oil, or water [employer] threatened to shut off services in your [...] any time in the past 12 m [facility], were you homeless or living [...] on filedocumented in this encounter Care Teams Broadband Installer Relationship Specialty Start Date End Date Brain Cyr DO PCP - General 07/14/18 Norma Rogel, LONI [place] Registered Nurse 07/14/18 documented as of this encounter
--- OUTSIDE RECORDS SUMMARY | 2025-04-07 14:50 | XMS_ITS | Encounter Summary ---
Author Organization [facility] Address [address] [place] [address] Care Team Providers Care Pedicurist Name Role Phone Brain Cyr DO Primary Care Provider [phone] Norma Rogel RN Unavailable Unavailable Encounter Details Date Type Department Care Team (Late st Contact Info) Description 03/15/2025 Scanned Document [facility] at Home [address] [facility] [address] [place] [address] Provider, Generic Social History Tobacco Use Types Packs/Day Years Used Date Smoking Tobacco: Former Cigarettes 1 10 0 07/14/1989 - 07/14/1999 Smokeless Tobacco: Never Alcohol Use Standard Drinks/Week Comments Yes 14 (1 standard drink = 0.6 oz pure alcohol) 2 vy, 2 shots liquor nightly, will stop pre op . Last drink 6 days ago. [facility] Utilities Answer Date Recorded In the past 12 months has [employer], [employer], oil, or water [employer] threatened to shut off services in your [...] on filedocumented in this encounter Care Teams Pedicurist Relationship Specialty Start Date End Date Brain Cyr DO PCP - General 07/14/18 Norma Rogel, LONI [place] Registered Nurse 07/14/18 documented as of this encounter
--- OUTSIDE RECORDS SUMMARY | 2025-04-07 14:50 | XMS_ITS | Encounter Summary ---
Author Organization [facility] Address [address] [place], [place] [address] Care Team Providers Care Grinder Name Role Phone Brain Cyr DO Primary Care Provider [phone] Norma Rogel RN Unavailable Unavailable Encounter Details Date Type Department Care Team (Late st Contact Info) Description 11/12/2021 Prep for Surgery [facility] OPHTHALMOLOGY [address] [place] [address] Demetrius Thompson MD [address] [place] [address] Social History Tobacco Use Types Packs/Day Years [...] documented as of this encounter Care Teams Grinder Relationship Specialty Start Date End Date Brain Cyr DO PCP - General 07/14/18 Norma Rogel, LONI CT Registered Nurse 07/14/18 documented as of this encounter
--- OUTSIDE RECORDS SUMMARY | 2025-04-07 14:50 | XMS_ITS | Encounter Summary ---
Author Organization [facility] Address [address] [place] [address] Care Team Providers Care Animal Skinner Name Role Phone Brain Cyr DO Primary Care Provider [phone] Norma Rogel RN Unavailable Unavailable Encounter Details Date Type Department Care Team (Late st Contact Info) Description 03/23/2025 Scanned Document [facility] at Home [address] [facility] [address] [place] [address] Provider, Generic Social History Tobacco Use Types Packs/Day Years Used Date Smoking Tobacco: Former Cigarettes 1 10 0 07/14/1989 - 07/14/1999 Smokeless Tobacco: Never Alcohol Use Standard Drinks/Week Comments Yes 14 (1 standard drink = 0.6 oz pure alcohol) 2 vy, 2 shots liquor nightly, will stop pre op . Last drink 6 days ago. [facility] Utilities Answer Date Recorded In the past 12 months has [employer], [employer], oil, or water [employer] threatened to shut off services in your [...] any time in the past 12 m [facility], were you homeless or living [...] on filedocumented in this encounter Care Teams Animal Skinner Relationship Specialty Start Date End Date Brain Cyr DO PCP - General 07/14/18 Norma Rogel, LONI [place] Registered Nurse 07/14/18 documented as of this encounter
--- OUTSIDE RECORDS SUMMARY | 2025-04-07 14:50 | XMS_ITS | Encounter Summary ---
Author Organization [facility] Address [address] [place] [address] Care Team Providers Care Emergency Technician Name Role Phone Brain Cyr DO Primary Care Provider [phone] Norma Rogel RN Unavailable Unavailable Encounter Details Date Type Department Care Team (Late st Contact Info) Description 03/13/2025 Scanned Document [facility] at Home [address] [facility] [address] [place] [address] Provider, Generic Social History Tobacco Use Types Packs/Day Years Used Date Smoking Tobacco: Former Cigarettes 1 10 0 07/14/1989 - 07/14/1999 Smokeless Tobacco: Never Alcohol Use Standard Drinks/Week Comments Yes 14 (1 standard drink = 0.6 oz pure alcohol) 2 vy, 2 shots liquor nightly, will stop pre op . Last drink 6 days ago. [facility] Utilities Answer Date Recorded In the past 12 months has [employer], [employer], oil, or water [employer] threatened to shut off services in your [...] any time in the past 12 m [facility], were you homeless or [...] on filedocumented in this encounter Care Teams Emergency Technician Relationship Specialty Start Date End Date Brain Cyr DO PCP - General 07/14/18 Norma Rogel, LONI [place] Registered Nurse 07/14/18 documented as of this encounter
--- OUTSIDE RECORDS SUMMARY | 2025-04-07 14:50 | XMS_ITS | Encounter Summary ---
Author Organization [facility] Address [address] [place] [address] Care Team Providers Care Fire Lieutenant Name Role Phone Brain Cyr DO Primary Care Provider [phone] Norma Rogel RN Unavailable Unavailable Encounter Details Date Type Department Care Team (Late st Contact Info) Description 03/11/2025 Scanned Document [facility] at Home [address] [facility] [address] [place] [address] Provider, Generic Social History Tobacco Use Types Packs/Day Years Used Date Smoking Tobacco: Former Cigarettes 1 10 0 07/14/1989 - 07/14/1999 Smokeless Tobacco: Never Alcohol Use Standard Drinks/Week Comments Yes 14 (1 standard drink = 0.6 oz pure alcohol) 2 vy, 2 shots liquor nightly, will stop pre op . Last drink 6 days ago. [facility] Utilities Answer Date Recorded In the past 12 months has [employer], [employer], oil, or water [employer] threatened to shut off services in [...] time in the past 12 m [facility], were you homeless or living in a skilled nursing (including now)? No 01/10/2025 Sex and Gender [...] filedocumented in this encounter Care Teams Fire Lieutenant Relationship Specialty Start Date End Date Brain Cyr DO PCP - General 07/14/18 Norma Rogel, LONI [place] Registered Nurse 07/14/18 documented as of this encounter
--- OUTSIDE RECORDS SUMMARY | 2025-04-07 14:50 | XMS_ITS | Encounter Summary ---
Author Organization [facility] Address [address] [place] [address] Care Team Providers Care First Calender Worker Name Role Phone Brain Cyr DO Primary Care Provider [phone] Norma Rogel RN Unavailable Unavailable Encounter Details Date Type Department Care Team (Late st Contact Info) Description 03/10/2025 Scanned Document [facility] at Home [address] [facility] [address] [place] [address] Provider, Generic Social History Tobacco Use Types Packs/Day Years Used Date Smoking Tobacco: Former Cigarettes 1 10 0 07/14/1989 - 07/14/1999 Smokeless Tobacco: Never Alcohol Use Standard Drinks/Week Comments Yes 14 (1 standard drink = 0.6 oz pure alcohol) 2 vy, 2 shots liquor nightly, will stop pre op . Last drink 6 days ago. [facility] Utilities Answer Date Recorded In the past 12 months has [employer], [employer], oil, or water [employer] threatened to shut off services in your [...] on filedocumented in this encounter Care Teams First Calender Worker Relationship Specialty Start Date End Date Brain Cyr DO PCP - General 07/14/18 Norma Rogel, LONI [place] Registered Nurse 07/14/18 documented as of this encounter
--- OUTSIDE RECORDS SUMMARY | 2025-04-07 14:50 | XMS_ITS | Clinical Summary ---
Author Organization [facility] Address [address] [facility] [place] [address] Care Team Providers Care Director Blood Bank Name Role Phone SheilaIzabella moreno ANGIE Unavailable [phone] Alo Mcgrath Primary Care Provider [phone] Allergies Active Allergy Reactions Criticality Noted Date [...] Vaccinations-consider flu- Covid-RSV- Shingrix x 2- TDap [id number] Colonoscopy-last 11-27-2023 with EGD Assessment & Plan (04/10/2023 7:59 AM EST): EKG-l See today [facility]wca-8-10-2023 < never obtained labs > still pending [...] asymptomatic Please continue best Anti GERD management .Wolbach continue PPI and best effort weight and [...] AM EDT): Collaborative care with rheumatology [facility] Assessment & Plan (01/19/2020 8:48 AM EDT): [facility] collaborative --- asymptomatic at present Will follow clinically Assessment & Plan (04/26/2019 9:11 AM EST): No sign of flare to date Assessment & Plan (02/15/2019 2:51 PM EDT): 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 Previously improved with prednisone Seen [facility] Rheumatology Assessment & Plan (06/09/2018 2:50 PM EST): Acute exacerbation swelling in both hands Previously improved with prednisone Seen [facility] Rheumatology Assessment & Plan (10/27/2017 10:39 AM EDT): Differential Dx discussed in detail including: rheumatoid arthritis vs other small joint symmetrical arthritides Referral to [facility] Rheumatology - Brynn YOUSIF Will taper Prednisone by 5 mg every 3 days until off Recheck in 1 month or sooner if any acute concern Assessment & Plan (10/21/2017 8:35 AM EDT): Again Differential Dx discussed, including: inflammatory arthritis (favoring RA vs other), infectious arthritis (Lyme's testing pending) vs other Continue Prednisone - day 310 and Doxycycline day 310 Will follow clinically [...] - awaiting MACK Coping - working with [facility] Assessment & Plan (11/08/2021 8:16 AM EDT): [...] (04/26/2019 9:13 AM EST): Anticipating TKA 05-12 - See care everywhere Midlevel clearance Assessment & [...] that has since failed -> referral to [facility] for new equipment Assessment & Plan (03/14/2024 9:00 AM EDT): Multiple attempts at upgrading PAP equipment and setting up repeat PAP assessment for known IKE Both scheduled for [facility] pulmonary and [facility] IKE Assessment & Plan (06/08/2023 12:22 PM EST): Patient has to set up appointment with [place] SIDING APPLICATOR Assessment & Plan (05/14/2023 9:17 AM EST): AP use ---> continues albeit older equipment Patient has to set up appointment with [facility] SIDING APPLICATOR Assessment & Plan (04/10/2023 7:19 AM EST): AP use ---> continues albeit older equipment Patient to inform when ready for repeat sleep study Assessment & Plan (11/27/2022 8:20 AM EDT): PAP use ---> continues albeit older equipment Patient to inform when ready for repeat sleep study Assessment & Plan (08/28/2022 9:50 AM EDT): Request for new equipment - Will make referral to [facility]- pulmonary and continue with best effort weight [...] Description 03/31/2025 1:00 PM EDT Office Visit [facility] Department of Vascular Surgery [address] [place] [address] [place] [phone] Alfredo Moses MD Grillo, Laura M PA-C Acute deep vein thrombosis of left peroneal vein (HCC) (Primary Dx) 03/29/2025 11:50 AM EDT [facility] [address] [place] [phone] Alo Mcgrath PA Cervical stenosis of spinal canal (Primary Dx); Cervical radiculopathy; Deep vein thrombosis (DVT) of left lower extremity, unspecified chronicity, unspecified vein (HCC); Function kidney decreased; Hyponatremia; Urinary retention; Anemia, unspecified type 03/20/2025 Orders Only [facility] Department of Internal Medicine [address] [facility],[address] [place] [address] Alo Mcgrath PA 02/24/2025 1:10 PM EDT Office [facility] [address] [place] [phone] Alo Mcgrath PA Cervical stenosis of spinal [...] pur e alcohol) daily 4 servings daily [facility] Utilities Answer Date Recorded In [...] Description 05/19/2025 11:30 AM EST Ancillary Procedure [facility] Department of Vascular Surgery [address] [place] [address] [place] [phone] Ann Collins, PA-C [address] [facility] [place] [address] 05/19/2025 12:00 PM EST Office Visit [facility] [address] [place] [address] [address] [place] [phone] Alfredo Moses MD [address] [place], [place] [address] 06/28/2025 9:10 AM EST Office Visit [facility] of [facility] Medicine [address] [place] [address] Alo Mcgrath PA 1 [facility] [address] [place] [address] Health Maintenance Due Date Last Done Comments [...] Count 8.7 3.8 - 10.8 Thousand/ uL [facility] Red Cell Count 4.03(L) 4.20 - 5.80 Million/u L [facility] Hemoglobin 12.9(L) 13.2 - 17.1 g/dL [facility] Hematocrit 39.3 38.5 - 50.0 % [facility] MCV 97.5 80.0 - 100.0 fL [facility] MCH 32.0 27.0 - 33.0 pg [facility] MCHC 32.8 32.0 - 36.0 g/dL [facility] Comment: For adults, a slight decrease in the calculated MCHC value (in the range of 30 to 32 g/dL) is most likely not clinically significant; however, it should be interpreted with caution in correlation with other red cell parameters and the patient's clinical condition. RBC Distribution Width 11.9 11.0 - 15.0 % [facility] Platelet Count 293 140 - 400 Thousand/ uL [facility] MPV 9.8 7.5 - 12.5 fL [facility] 02/27/2025 10:2 2 AM EDT 02/27/2025 10:23 AM EDT us Alo TREVINO [facility] ORDERABLES Kimi l Result Performing Organization Address [facility]/ZIP Co de Phone Number [facility] [address] [place] [address] * (ABNORMAL) IRON, TIBC AND FERRITIN PANEL (Q) (02/27/2025 10:22 AM EDT) [facility] IRON, TOTAL 50 50 - 180 mcg/dL [facility] IRON BINDING CAPACITY 263 250 - 425 mcg/dL (calc) [facility] % SATURATION 19(L) 20 - 48 % (calc) [facility] FERRITIN 440(H) 24 - 380 ng/mL [facility] 02/27/2025 10:2 2 AM EDT 02/27/2025 10:23 AM EDT Alo TREVINO [facility] ORDERABLES Kimi l Result Performing Organization Address [facility] Co de Phone Number [facility] [address] [place] [address] * Colonoscopy (07/22/2012) [facility] Colonoscopy completed Historical Provider HEALTH MAINTENANCE Final Result from Last 3 Months or Most Recently Relevant to Health Maintenance Insurance [facility] Care Teams Director Blood Bank Relationship Specialty Start Date End Date Izabella FrancisANGIE PCP - Insurance Payer PCP 06/01/23 Alo Mcgrath PA [address] [address] PCP - General Internal Medicine 02/21/25
--- OUTSIDE RECORDS SUMMARY | 2025-04-07 14:50 | XMS_ITS | Encounter Summary ---
Author Organization [facility] Address [address] [place] [address] Care Team Providers Care Account Assistant Name Role Phone Brain Cyr DO Primary Care Provider Norma Rogel RN Unavailable Unavailable Encounter Details Date Type Department Care Team (Late st Contact Info) Description 03/17/2025 Scanned Document [facility] at Home [address] [facility] [address] [place] [address] Provider, Generic Social History Tobacco Use Types Packs/Day Years Used Date Smoking Tobacco: Former Cigarettes 1 10 0 07/14/1989 - 07/14/1999 Smokeless Tobacco: Never Alcohol Use Standard Drinks/Week Comments Yes 14 (1 standard drink = 0.6 oz pure alcohol) 2 vy, 2 shots liquor nightly, will stop pre op . Last drink 6 days ago. [facility] Utilities Answer Date Recorded In the past 12 months has [employer], [employer], oil, or water [employer] threatened to shut off services in your [...] on filedocumented in this encounter Care Teams Account Assistant Relationship Specialty Start Date End Date Brain Cyr DO PCP - General 07/14/18 Norma Rogel, LONI [place] Registered Nurse 07/14/18 documented as of this encounter
--- OUTSIDE RECORDS SUMMARY | 2025-04-07 14:50 | XMS_ITS | Encounter Summary ---
Author Organization [facility] Address [address] [place] [address] Care Team Providers Care Promos Executive Producer Name Role Phone Brain Cyr DO Primary Care Provider [phone] Norma Rogel RN Unavailable Unavailable Encounter Details Date Type Department Care Team (Late st Contact Info) Description 03/22/2025 Scanned Document [facility] at Home [address] [facility] [address] [place] [address] Provider, Generic Social History Tobacco [...] Recorded In the past 12 months has [employer], [employer], oil, or water [employer] threatened to shut off services in your [...] on filedocumented in this encounter Care Teams Promos Executive Producer Relationship Specialty Start Date End Date Brain Cyr DO PCP - General 07/14/18 Norma Rogel, LONI CT Registered Nurse 07/14/18 documented as of this encounter
--- OUTSIDE RECORDS SUMMARY | 2025-04-07 14:50 | XMS_ITS | Encounter Summary ---
Author Organization [facility] Address [address] [place] [address] Care Team Providers Care Handy Man Name Role Phone Brain Cyr DO Primary Care Provider [phone] Norma Rogel RN Unavailable Unavailable Encounter Details Date Type Department Care Team (Late st Contact Info) Description 02/28/2025 Scanned Document [facility] at Home [address] [facility] [address] [place] [address] Provider, Generic Social History Tobacco [...] Recorded In the past 12 months has [employer], [employer], oil, or water [employer] threatened to shut off services in your [...] any time in the past 12 m [facility], were you homeless or living [...] on filedocumented in this encounter Care Teams Handy Man Relationship Specialty Start Date End Date Brain Cyr DO PCP - General 07/14/18 Norma Rogel, LONI CT Registered Nurse 07/14/18 documented as of this encounter
--- OUTSIDE RECORDS SUMMARY | 2025-04-07 14:50 | XMS_ITS | Encounter Summary ---
Author Organization [facility] Address [address] [place] [address] Care Team Providers Care Twine Reeling Machine Operator Name Role Phone Brain Cyr DO Primary Care Provider [phone] Norma Rogel RN Unavailable Unavailable Encounter Details Date Type Department Care Team (Late st Contact Info) Description 04/05/2025 Scanned Document [facility] at Home [address] [facility] [address] [place] [address] Provider, Generic Social History Tobacco [...] Recorded In the past 12 months has [employer], [employer], oil, or water [employer] threatened to shut off services in your [...] on filedocumented in this encounter Care Teams Twine Reeling Machine Operator Relationship Specialty Start Date End Date Brain Cyr DO PCP - General 07/14/18 Norma Rogel, LONI [place] Registered Nurse 07/14/18 documented as of this encounter
--- OUTSIDE RECORDS SUMMARY | 2025-04-07 14:50 | XMS_ITS | Encounter Summary ---
Author Organization [facility] Address [address] [place] [address] Care Team Providers Care Engineering Technician Name Role Phone Brain Cyr DO Primary Care Provider [phone] Norma Rogel RN Unavailable Unavailable Encounter Details Date Type Department Care Team (Late st Contact Info) Description 03/14/2025 Scanned Document [facility] at Home [address] [facility] [address] [place] [address] Provider, Generic Social History Tobacco Use Types Packs/Day Years Used Date Smoking Tobacco: Former Cigarettes 1 10 0 07/14/1989 - 07/14/1999 Smokeless Tobacco: Never Alcohol Use Standard Drinks/Week Comments Yes 14 (1 standard drink = 0.6 oz pure alcohol) 2 vy, 2 shots liquor nightly, will stop pre op . Last drink [address] [facility] Utilities Answer Date Recorded In the past 12 months has [employer], [employer] oil, or water [employer] threatened to shut off services in your [...] on filedocumented in this encounter Care Teams Engineering Technician Relationship Specialty Start Date End Date Brain Cyr DO PCP - General 07/14/18 Norma Rogel, LONI [place] Registered Nurse 07/14/18 documented as of this encounter
--- OUTSIDE RECORDS SUMMARY | 2025-04-07 14:50 | XMS_ITS | Encounter Summary ---
Author Organization [facility] Address [address] [place] [address] Care Team Providers Care Nurse Practitioner Name Role Phone SheilaIzabella moreno ANGIE Unavailable [phone] Alo Mcgrath Primary Care Provider [phone] Encounter Details Date Type Department Care Team (Late st Contact Info) Description 03/20/2025 Orders Only [facility] Department of Internal Medicine 1 [facility] [address] [place] [address] Alo Mcgrath PA 1 [facility] [address] [place] [address] Social History Tobacco Use Types Packs/Day Years Used Date Smoking Tobacco: Former Cigarettes 0.8 18 1 980 - 1997 Smokeless Tobacco: Never Alcohol Use Standard Drinks/Week Comments Yes 0 (1 standard drink = 0.6 oz pur e alcohol) daily 4 servings daily [facility] Utilities Answer Date Recorded In the past 12 months has th e [employer], gas, oil, or water [employer] threatened to shut off services in your [...] time in the past 12 m [facility], were you homeless or living in a correction (including now)? No 05/20/2024 [employer] Assistance Answer [...] 11:30 AM EST Ancillary Procedure [facility] Department of Vascular Surgery [address] [place] [address] [address] [place] [address] Ann Collins PA-C [address] [place] [address] [place] [address] 05/19/2025 12:00 PM EST Office Visit [facility] [address] [place] [address] [address] [place] [address] Alfredo Moses MD [address] [place] [address] 06/28/2025 9:10 AM EST Office Visit [facility] Department of Family Medicine [address] [place] [address] Alo Mcgrath PA 1 [facility] [address] [place] [address] documented as of this encounter Visit Diagnoses Not on filedocumented in this encounter Care Teams Nurse Practitioner Relationship Specialty Start Date End Date Izabella Francis APRN PCP - Insurance Payer PCP 06/01/23 Alo Mcgrath PA 1 [facility] [address] [place] [address] PCP - General Internal Medicine 02/21/25 documented as of this encounter
--- OUTSIDE RECORDS SUMMARY | 2025-04-07 14:50 | XMS_ITS | Encounter Summary ---
Author Organization [facility] Address [address] [place] [address] Care Team Providers Care Inspector Eyeglass Frames Name Role Phone Brain Cyr DO Primary Care Provider [phone] Norma Rogel RN Unavailable Unavailable Encounter Details Date Type Department Care Team (Late st Contact Info) Description 03/21/2025 Scanned Document [facility] [address] [facility] [address] [place] [address] Provider, Generic Social History Tobacco Use Types Packs/Day Years Used Date Smoking Tobacco: Former Cigarettes 1 10 0 07/14/1989 - 07/14/1999 Smokeless Tobacco: Never Alcohol Use Standard Drinks/Week Comments Yes 14 (1 standard drink = 0.6 oz pure alcohol) 2 vy, 2 shots liquor nightly, will stop pre op . Last drink 6 days ago. [facility] Utilities Answer Date Recorded In the past 12 months has [employer], [employer], oil, or water [employer] threatened to shut off services in your [...] were you homeless or living in a long-term (including now)? No 01/10/2025 Sex and Gender [...] on filedocumented in this encounter Care Teams Inspector Eyeglass Frames Relationship Specialty Start Date End Date Brain Cyr DO PCP - General 07/14/18 Norma Rogel, LONI [place] Registered Nurse 07/14/18 documented as of this encounter
--- OUTSIDE RECORDS SUMMARY | 2025-04-21 19:00 | XMS_ITS | Clinical Summary ---
Author Organization Unknown Care Team Providers Care Rib Bender Name Role Phone DIANA HAGEN Unavailable Unavailable EMERITA PT, DENNISE Unavailable Unavailable COLL[employer] FIELD AGENT, KAREN Unavailable Unavailable CONNER OT, DYANN Unavailable Unavailable OUIMET AIDE, SANDI Unavailable Unavaila ble GELA HORTON, CASSIDY Unavailable Unavailabl e Payers Payer Name Policy Type Policy Number Effective Date Expira tion Date [employer] [place] - COMMERCIAL - PER VISIT [id number] SELF PAY Problems Condition Name Condition Details Condition Category Status Onset Date Resolution Date Last Treatment Date Treating Clinician Comments BENIGN PROSTATIC HYPERPLASIA WITH LOWER URINARY TRACT SYMP Active 02-22 00:00: 00 OTHER RETENTION OF URINE Active 02-22 00:00: 00 OTHER OBSTRUCTIVE AND REFLUX UROPATHY Active 02-22 00:00: 00 ENCOUNTER FOR FITTING AND ADJUSTMENT OF URINARY DEVICE Active 02-22 00:00: 00 PRESSURE-IND UCED DEEP TISSUE DAMAGE OF RIGHT HEEL Active 02-22 00:00: 00 ENCOUNTER FOR OTHER ORTHOPEDIC AFTERCARE Active 02-22 00:00: 00 SPINAL STENOSIS, CERVICAL REGION Active 02-22 00:00: 00 ESSENTIAL (PRIMARY) HYPERTENSION Active 02-22 00:00: 00 ACUTE EMBOLISM AND THOMBOS UNSP DEEP VEINS OF L LOW EXTREM Active 02-22 00:00: 00 UNSPECIFIED ATRIAL FIBRILLATION Active 02-22 00:00: 00 OTHER PULMONARY EMBOLISM WITHOUT ACUTE COR PULMONALE Active 02-22 00:00: 00 PNEUMONIA, UNSPECIFIED ORGANISM Active 02-22 00:00: 00 ACUTE RESPIRATORY FAILURE WITH HYPOXIA Active 02-22 00:00: 00 ACUTE KIDNEY FAILURE, UNSPECIFIED Active 02-22 00:00: 00 HYPO-OSMOLAL ITY AND HYPONATREMIA Active 02-22 00:00: 00 DEPRESSION, UNSPECIFIED Active 02-22 00:00: 00 ANXIETY DISORDER, UNSPECIFIED Active 02-22 00:00: 00 UNSPECIFIED OSTEOARTHRIT IS, UNSPECIFIED SITE Active 02-22 00:00: 00 GASTRO-ESOPH AGEAL REFLUX DISEASE WITHOUT ESOPHAGITIS Active 02-22 00:00: 00 HYPOKALEMIA Active 02-22 00:00: 00 OBSTRUCTIVE SLEEP APNEA (ADULT) (PEDIATRIC) Active 02-22 00:00: 00 MORBID (SEVERE) OBESITY DUE TO EXCESS CALORIES Active 02-22 00:00: 00 BODY MASS INDEX [BMI] 36.0-36.9, ADULT Active 02-22 00:00: 00 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 Ordering Clinician Indication Dosage Frequency Signature (SIG) Comments Components Eliquis 5 mg tablet 02-08 00:00: 00 Yes [id number] BLOOD CLOT 5 mg 2 TIMES DAILY 5 mg 2 TIMES DAILY (route: oral) Med Classific ation: Hematolog ical Agents tamsulosin 0.4 mg capsule 02-08 00:00: 00 Yes [id number] 2 capsule BEDTIME 2 capsule BEDTIME (route: oral) Med Classific ation: Genitouri nary Therapy docusate sodium 100 mg capsule 01-25 00:00: 00 02-22 00:00 :00 No [id number] Per instruc tions Per instructio ns (route: oral) Med Classific ation: Gastroint estinal Therapy Agents oxycodone 5 mg tablet 01-25 00:00: 00 04-04 23:59 :00 No [id number] PAIN 5 mg EVERY 8 HOURS 5 mg EVERY 8 HOURS (route: oral) Med Classific ation: Analgesic , Anti-infl ammatory or Antipyret ic methocarbam ol 750 mg tablet 01-08 00:00: 00 Yes [id number] SPASM 750 mg EVERY 12 HOURS 750 mg EVERY 12 HOURS (route: oral) Med Classific ation: Locomotor System naproxen 500 mg tablet 01-08 00:00: 00 02-22 00:00 :00 No [id number] Per instruc tions TWICE A DAY NEEDED Per instructio ns TWICE A DAY NEEDED (route: oral) Med Classific ation: Analgesic , Anti-infl ammatory or Antipyret ic amlodipine 10 mg tablet 02-22 00:00: 00 Yes [id number] BLOOD PRESSURE 10 mg DAILY 10 mg DAILY (route: oral) Med Classific ation: Cardiovas cular Therapy Agents carvedilol 25 mg tablet 02-22 00:00: 00 Yes [id number] BLOOD PRESSURE 25 mg 2 TIMES DAILY 25 mg 2 TIMES DAILY (route: oral) Med Classific ation: Cardiovas cular Therapy Agents gabapentin 300 mg capsule 2024-06 00:00: 00 Yes [id number] NEUROPATI PAIN 1 capsule 3 TIMES DAILY 1 capsule 3 TIMES DAILY (route: oral) Med Classific ation: Central Nervous System Agents hydrocodone 10 mg-acetamin ophen 325 mg tablet 2024-06 00:00: 00 Yes [id number] PAIN 1 tablet NEEDED 1 tablet NEEDED (route: oral) Med Classific ation: Analgesic , Anti-infl ammatory or Antipyret ic Vital Signs Vital Name Observation Time Observation Value Commen ts Temperature 2025-04-05 10:05:00.000 98 [degF] Temperature 2025-04-04 14:25:00.000 98 [degF] Temperature 2025-04-04 12:50:00.000 98 [degF] Temperature 2025-03-30 10:17:00.000 98.1 [degF] Temperature 2025-03-28 12:54:00.000 97.7 [degF] Temperature 2025-03-28 09:40:00.000 98.1 [degF] Temperature 2025-03-23 09:40:00.000 98.2 [degF] Temperature 2025-03-22 09:31:00.000 97.7 [degF] Temperature 2025-03-21 13:43:00.000 98 [degF] Temperature 2025-03-21 09:55:00.000 97.2 [degF] Temperature 2025-03-17 10:30:00.000 98 [degF] Temperature 2025-03-16 11:23:00.000 97.9 [degF] Temperature 2025-03-14 09:06:00.000 98.1 [degF] Temperature 2025-03-13 12:33:00.000 97.7 [degF] Temperature 2025-03-10 14:24:00.000 98.1 [degF] Temperature 2025-03-10 13:42:00.000 98.4 [degF] Temperature 2025-03-07 10:07:00.000 97.6 [degF] Temperature 2025-03-07 09:09:00.000 97.9 [degF] Temperature 2025-03-06 10:21:00.000 98 [degF] Temperature 2025-03-03 11:06:00.000 98 [degF] Temperature 2025-03-03 09:38:00.000 97.9 [degF] Temperature 2025-03-02 13:09:00.000 97.3 [degF] Temperature 2025-02-28 09:23:00.000 98.1 [degF] Temperature 2025-02-27 15:17:00.000 97.7 [degF] Temperature 2025-02-27 11:35:00.000 97.9 [degF] Temperature 2025-02-24 15:39:00.000 97.2 [degF] Temperature 2025-02-24 11:41:00.000 98 [degF] Temperature 2025-02-23 11:56:00.000 98.3 [degF] Temperature 2025-02-22 12:19:00.000 97.9 [degF] BMI (%) 2025-02-22 11:56:25.000 36 kg/m2 Height 2025-02-22 11:56:18.000 64 [in_us] Pulse 2025-04-05 10:05:00.000 67 /min Pulse 2025-04-04 14:25:00.000 70 /min Pulse 2025-04-04 12:50:00.000 78 /min Pulse 2025-03-30 10:17:00.000 71 /min Pulse 2025-03-28 12:54:00.000 76 /min Pulse 2025-03-28 09:40:00.000 60 /min Pulse 2025-03-23 09:40:00.000 72 /min Pulse 2025-03-22 09:31:00.000 65 /min Pulse 2025-03-21 13:43:00.000 78 /min Pulse 2025-03-21 09:55:00.000 63 /min Pulse 2025-03-17 10:30:00.000 62 /min Pulse 2025-03-16 11:23:00.000 64 /min Pulse 2025-03-14 09:06:00.000 76 /min Pulse 2025-03-13 12:33:00.000 69 /min Pulse 2025-03-10 14:24:00.000 60 /min Pulse 2025-03-10 13:42:00.000 65 /min Pulse 2025-03-07 10:07:00.000 66 /min Pulse 2025-03-07 09:09:00.000 74 /min Pulse 2025-03-06 10:21:00.000 63 /min Pulse 2025-03-03 11:06:00.000 70 /min Pulse 2025-03-03 09:38:00.000 88 /min Pulse 2025-03-02 13:09:00.000 69 /min Pulse 2025-02-28 09:23:00.000 67 /min Pulse 2025-02-27 15:17:00.000 73 /min Pulse 2025-02-27 11:35:00.000 64 /min Pulse 2025-02-24 15:39:00.000 70 /min Pulse 2025-02-24 11:41:00.000 74 /min Pulse 2025-02-23 11:56:00.000 76 /min Pulse 2025-02-22 12:19:00.000 62 /min O2 Saturation (%) 2025-04-05 10:05:00.000 97 % O2 Saturation (%) 2025-04-04 14:25:00.000 98 % O2 Saturation (%) 2025-04-04 12:50:00.000 98 % O2 Saturation (%) 2025-03-30 10:17:00.000 97 % O2 Saturation (%) 2025-03-28 12:54:00.000 96 % O2 Saturation (%) 2025-03-28 09:40:00.000 97 % O2 Saturation (%) 2025-03-23 09:40:00.000 98 % O2 Saturation (%) 2025-03-22 09:31:00.000 97 % O2 Saturation (%) 2025-03-21 13:43:00.000 98 % O2 Saturation (%) 2025-03-21 09:55:00.000 98 % O2 Saturation (%) 2025-03-17 10:30:00.000 97 % O2 Saturation (%) 2025-03-16 11:23:00.000 98 % O2 Saturation (%) 2025-03-14 09:06:00.000 97 % O2 Saturation (%) 2025-03-13 12:33:00.000 99 % O2 Saturation (%) 2025-03-10 14:24:00.000 97 % O2 Saturation (%) 2025-03-10 13:42:00.000 98 % O2 Saturation (%) 2025-03-07 10:07:00.000 97 % O2 Saturation (%) 2025-03-07 09:09:00.000 95 % O2 Saturation (%) 2025-03-06 10:21:00.000 98 % O2 Saturation (%) 2025-03-03 11:06:00.000 98 % O2 Saturation (%) 2025-03-03 09:38:00.000 98 % O2 Saturation (%) 2025-03-02 13:09:00.000 99 % O2 Saturation (%) 2025-02-28 09:23:00.000 97 % O2 Saturation (%) 2025-02-27 15:17:00.000 96 % O2 Saturation (%) 2025-02-27 11:35:00.000 98 % O2 Saturation (%) 2025-02-24 15:39:00.000 95 % O2 Saturation (%) 2025-02-24 11:41:00.000 99 % O2 Saturation (%) 2025-02-23 11:56:00.000 98 % O2 Saturation (%) 2025-02-22 12:19:00.000 98 % Respirations 2025-04-05 10:05:00.000 16 /min Respirations 2025-04-04 14:25:00.000 15 /min Respirations 2025-04-04 12:50:00.000 18 /min Respirations 2025-03-30 10:17:00.000 16 /min Respirations 2025-03-28 12:54:00.000 15 /min Respirations 2025-03-28 09:40:00.000 16 /min Respirations 2025-03-23 09:40:00.000 15 /min Respirations 2025-03-22 09:31:00.000 16 /min Respirations 2025-03-21 13:43:00.000 18 /min Respirations 2025-03-21 09:55:00.000 16 /min Respirations 2025-03-17 10:30:00.000 16 /min Respirations 2025-03-16 11:23:00.000 15 /min Respirations 2025-03-14 09:06:00.000 16 /min Respirations 2025-03-13 12:33:00.000 16 /min Respirations 2025-03-10 14:24:00.000 15 /min Respirations 2025-03-10 13:42:00.000 16 /min Respirations 2025-03-07 10:07:00.000 18 /min Respirations 2025-03-07 09:09:00.000 16 /min Respirations 2025-03-06 10:21:00.000 16 /min Respirations 2025-03-03 11:06:00.000 16 /min Respirations 2025-03-03 09:38:00.000 15 /min Respirations 2025-03-02 13:09:00.000 16 /min Respirations 2025-02-28 09:23:00.000 16 /min Respirations 2025-02-27 15:17:00.000 16 /min Respirations 2025-02-27 11:35:00.000 18 /min Respirations 2025-02-24 15:39:00.000 17 /min Respirations 2025-02-24 11:41:00.000 16 /min Respirations 2025-02-23 11:56:00.000 16 /min Respirations 2025-02-22 12:19:00.000 20 /min Weight (lbs) 2025-02-22 11:56:25.000 215 [lb_av] Systolic Blood Pressure 2025-04-05 10:05:00.000 150 mm [Hg] Systolic Blood Pressure 2025-04-04 14:25:00.000 138 mm [Hg] Systolic Blood Pressure 2025-04-04 12:50:00.000 130 mm [Hg] Systolic Blood Pressure 2025-03-30 10:17:00.000 140 mm [Hg] Systolic Blood Pressure 2025-03-28 12:54:00.000 136 mm [Hg] Systolic Blood Pressure 2025-03-28 09:40:00.000 132 mm [Hg] Systolic Blood Pressure 2025-03-23 09:40:00.000 140 mm [Hg] Systolic Blood Pressure 2025-03-22 09:31:00.000 148 mm [Hg] Systolic Blood Pressure 2025-03-21 13:43:00.000 138 mm [Hg] Systolic Blood Pressure 2025-03-21 09:55:00.000 126 mm [Hg] Systolic Blood Pressure 2025-03-17 10:30:00.000 134 mm [Hg] Systolic Blood Pressure 2025-03-16 11:23:00.000 132 mm [Hg] Systolic Blood Pressure 2025-03-14 09:06:00.000 128 mm [Hg] Systolic Blood Pressure 2025-03-13 12:33:00.000 132 mm [Hg] Systolic Blood Pressure 2025-03-10 14:24:00.000 132 mm [Hg] Systolic Blood Pressure 2025-03-10 13:42:00.000 140 mm [Hg] Systolic Blood Pressure 2025-03-07 10:07:00.000 160 mm [Hg] Systolic Blood Pressure 2025-03-07 09:09:00.000 138 mm [Hg] Systolic Blood Pressure 2025-03-06 10:21:00.000 110 mm [Hg] Systolic Blood Pressure 2025-03-03 11:06:00.000 120 mm [Hg] Systolic Blood Pressure 2025-03-03 09:38:00.000 122 mm [Hg] Systolic Blood Pressure 2025-03-02 13:09:00.000 130 mm [Hg] Systolic Blood Pressure 2025-02-28 09:23:00.000 120 mm [Hg] Systolic Blood Pressure 2025-02-27 15:17:00.000 126 mm [Hg] Systolic Blood Pressure 2025-02-27 11:35:00.000 140 mm [Hg] Systolic Blood Pressure 2025-02-24 15:39:00.000 122 mm [Hg] Systolic Blood Pressure 2025-02-24 11:41:00.000 130 mm [Hg] Systolic Blood Pressure 2025-02-23 11:56:00.000 120 mm [Hg] Systolic Blood Pressure 2025-02-22 12:19:00.000 128 mm [Hg] Diastolic Blood Pressure 2025-04-05 10:05:00.000 80 mm [Hg] Diastolic Blood Pressure 2025-04-04 14:25:00.000 74 mm [Hg] Diastolic Blood Pressure 2025-04-04 12:50:00.000 78 mm [Hg] Diastolic Blood Pressure 2025-03-30 10:17:00.000 82 mm [Hg] Diastolic Blood Pressure 2025-03-28 12:54:00.000 78 mm [Hg] Diastolic Blood Pressure 2025-03-28 09:40:00.000 78 mm [Hg] Diastolic Blood Pressure 2025-03-23 09:40:00.000 80 mm [Hg] Diastolic Blood Pressure 2025-03-22 09:31:00.000 80 mm [Hg] Diastolic Blood Pressure 2025-03-21 13:43:00.000 76 mm [Hg] Diastolic Blood Pressure 2025-03-21 09:55:00.000 72 mm [Hg] Diastolic Blood Pressure 2025-03-17 10:30:00.000 72 mm [Hg] Diastolic Blood Pressure 2025-03-16 11:23:00.000 80 mm [Hg] Diastolic Blood Pressure 2025-03-14 09:06:00.000 78 mm [Hg] Diastolic Blood Pressure 2025-03-13 12:33:00.000 78 mm [Hg] Diastolic Blood Pressure 2025-03-10 14:24:00.000 70 mm [Hg] Diastolic Blood Pressure 2025-03-10 13:42:00.000 80 mm [Hg] Diastolic Blood Pressure 2025-03-07 10:07:00.000 80 mm [Hg] Diastolic Blood Pressure 2025-03-07 09:09:00.000 70 mm [Hg] Diastolic Blood Pressure 2025-03-06 10:21:00.000 60 mm [Hg] Diastolic Blood Pressure 2025-03-03 11:06:00.000 70 mm [Hg] Diastolic Blood Pressure 2025-03-03 09:38:00.000 70 mm [Hg] Diastolic Blood Pressure 2025-03-02 13:09:00.000 74 mm [Hg] Diastolic Blood Pressure 2025-02-28 09:23:00.000 60 mm [Hg] Diastolic Blood Pressure 2025-02-27 15:17:00.000 68 mm [Hg] Diastolic Blood Pressure 2025-02-27 11:35:00.000 80 mm [Hg] Diastolic Blood Pressure 2025-02-24 15:39:00.000 60 mm [Hg] Diastolic Blood Pressure 2025-02-24 11:41:00.000 78 mm [Hg] Diastolic Blood Pressure 2025-02-23 11:56:00.000 72 mm [Hg] Diastolic Blood Pressure 2025-02-22 12:19:00.000 64 mm [Hg] Plan of Treatment Planned Activity Planned Date Details Comments Future Scheduled Test SKILLED NU RSE TO EVALUATE AND DEVELOP PLAN OF CARE TO BE COUNTERSIGNED BY PHYSICIAN. SKILLED NURSE TO ASSESS/EVALUATE CO-MORBID CONDITIONS INCLUDING TEACH, TRAIN STATUS POST CERVICAL FUSION INSTRUCTIONS, MED MNGT, PAIN, SAFETY, AND OTHER CONDITIONS THAT PRESENT THEMSELVES DURING THE COURSE OF THIS EPISODE TO IDENTIFY CHANGES AND INTERVENE TO MINIMIZE COMPLICATIONS. [code = SKILLED NURSE TO EVALUATE AND DEVELOP PLAN OF CARE TO BE COUNTERSIGNED BY PHYSICIAN. SKILLED NURSE TO ASSESS/EVALUATE CO-MORBID CONDITIONS INCLUDING TEACH, TRAIN STATUS POST CERVICAL FUSION INSTRUCTIONS, MED MNGT, PAIN, SAFETY, AND OTHER CONDITIONS THAT PRESENT THEMSELVES DURING THE COURSE OF THIS EPISODE TO IDENTIFY CHANGES AND INTERVENE TO MINIMIZE COMPLICATIONS.] Future Scheduled Test SKILLED NU RSE TO OBTAIN O2 SATS VIA PULSE OXIMETER EVERY VISIT [code = SKILLED NURSE TO OBTAIN O2 SATS VIA PULSE OXIMETER EVERY VISIT] Future Scheduled Test SKILLED NU RSE TO PERFORM MULTIFACTOR FALL RISK ASSESSMENT AND IMPLEMENT INTERVENTIONS TO DECREASE RISK OF FALLS. SKILLED NURSE TO INSTRUCT ON HOME SAFETY, IMPACT OF POLYPHARMACY, ENVIRONMENTAL SAFETY, AND FALL PREVENTION. [code = SKILLED NURSE TO PERFORM MULTIFACTOR FALL RISK ASSESSMENT AND IMPLEMENT INTERVENTIONS TO DECREASE RISK OF FALLS. SKILLED NURSE TO INSTRUCT ON HOME SAFETY, IMPACT OF POLYPHARMACY, ENVIRONMENTAL SAFETY, AND FALL PREVENTION.] Future Scheduled Test NEED FOR O /A AND SKILLED TEACHING RELATED TO INCREASED RISK FOR ER VISIT OR HOSPITAL READMISSION [code = NEED FOR O/A AND SKILLED TEACHING RELATED TO INCREASED RISK FOR ER VISIT OR HOSPITAL READMISSION] Future Scheduled Test SKILLED NU RSE FOR OBSERVATION / ASSESSMENT OF PAIN, EFFECTIVENESS OF PAIN MANAGEMENT REGIMEN AND SKILLED TEACHING RELATED TO PAIN MANAGEMENT. SKILLED NURSE TO INTERVENE WITH INCREASED PAIN LEVEL TO MINIMIZE COMPLICATIONS. [code = SKILLED NURSE FOR OBSERVATION / ASSESSMENT OF PAIN, EFFECTIVENESS OF PAIN MANAGEMENT REGIMEN AND SKILLED TEACHING RELATED TO PAIN MANAGEMENT. SKILLED NURSE TO INTERVENE WITH INCREASED PAIN LEVEL TO MINIMIZE COMPLICATIONS.] Future Scheduled Test SKILLED NU RSE TO REVIEW MEDICATION PROFILE AND RECONCILE MEDICATIONS NEEDED. SKILLED NURSE MAY INSTRUCT AND REINFORCE MEDICATION TEACHING RELATED TO USE OF MEDICATIONS TO TREAT DISEASE PROCESSES. [code = SKILLED NURSE TO REVIEW MEDICATION PROFILE AND RECONCILE MEDICATIONS NEEDED. SKILLED NURSE MAY INSTRUCT AND REINFORCE MEDICATION TEACHING RELATED TO USE OF MEDICATIONS TO TREAT DISEASE PROCESSES.] Future Scheduled Test SKILLED NU RSE TO PERFORM / TEACH WOUND CARE TO SPOUSE , DTI, RIGHT HEEL CLEANSE WITH SOAP AND WATER APPLY SKIN PREP DAILY, PRN. WOUND CARE TO BE COMPLETED BY SN ON NURSING DAYS SPOUSE TO PERFORM WOUND CARE ON NON NURSING DAYS. [code = SKILLED NURSE TO PERFORM / TEACH WOUND CARE TO SPOUSE , DTI, RIGHT HEEL CLEANSE WITH SOAP AND WATER APPLY SKIN PREP DAILY, PRN. WOUND CARE TO BE COMPLETED BY SN ON NURSING DAYS SPOUSE TO PERFORM WOUND CARE ON NON NURSING DAYS.] Future Scheduled Test PHYSICAL T HERAPIST TO EVALUATE/ASSESS PATIENT AND DEVELOP PLAN OF CARE. [code = PHYSICAL THERAPIST TO EVALUATE/ASSESS PATIENT AND DEVELOP PLAN OF CARE.] Future Scheduled Test PHYSICAL T HERAPIST TO EVALUATE/ASSESS AND DEVELOP PHYSICAL THERAPY PLAN OF CARE. PHYSICAL THERAPY TO ESTABLISH/UPGRADE HOME EXERCISE PROGRAM AND PROVIDE THERAPEUTIC EXERCISES DESIGNED TO RESTORE FUNCTIONAL STRENGTH AND ROM. PHYSICAL THERAPY TO PROVIDE TECHNIQUES DESIGNED TO INCREASE SAFETY IN BED MOBILITY. PHYSICAL THERAPY TO PROVIDE BALANCE TRAINING TO REDUCE FALL RISK AND ENHANCE FUNCTIONAL MOBILITY. PHYSICAL THERAPY TO INSTRUCT PATIENT/CAREGIVER IN SAFE TRANSFERS WITH APPROPRIATE BODY MECHANICS AND/OR USE OF EQUIPMENT. PHYSICAL THERAPIST/BULB GRADER TO OBTAIN O2 SATS EACH VISIT TO MEASURE RESPONSE TO ACTIVITY PHYSICAL THERAPY TO PROVIDE GAIT TRAINING TO ENSURE PATIENT SAFETY AND PREVENT FALLS. PHYSICAL THERAPIST FOR OBSERVATION / ASSESSMENT OF INTEGUMENTARY STATUS FOR EARLY IDENTIFICATION OF COMPLICATIONS. THERAPIST TO INSTRUCT PATIENT/CAREGIVER IN SAFE USE OF COLD OR HEAT THERAPY TO CERVICAL SPINE FOR 20 MIN AT PRN TO REDUCE PAIN/EDEMA TO IMPROVE MOBILITY PHYSICAL THERAPIST TO REVIEW MEDICATION PROFILE AND RECONCILE MEDICATIONS NEEDED. PHYSICAL THERAPIST MAY INSTRUCT AND REINFORCE MEDICATION TEACHING RELATED TO USE OF MEDICATIONS TO TREAT DISEASE PROCESSES. [code = PHYSICAL THERAPIST TO EVALUATE/ASSESS AND DEVELOP PHYSICAL THERAPY PLAN OF CARE. PHYSICAL THERAPY TO ESTABLISH/UPGRADE HOME EXERCISE PROGRAM AND PROVIDE THERAPEUTIC EXERCISES DESIGNED TO RESTORE FUNCTIONAL STRENGTH AND ROM. PHYSICAL THERAPY TO PROVIDE TECHNIQUES DESIGNED TO INCREASE SAFETY IN BED MOBILITY. PHYSICAL THERAPY TO PROVIDE BALANCE TRAINING TO REDUCE FALL RISK AND ENHANCE FUNCTIONAL MOBILITY. PHYSICAL THERAPY TO INSTRUCT PATIENT/CAREGIVER IN SAFE TRANSFERS WITH APPROPRIATE BODY MECHANICS AND/OR USE OF EQUIPMENT. PHYSICAL THERAPIST/BULB GRADER TO OBTAIN O2 SATS EACH VISIT TO MEASURE RESPONSE TO ACTIVITY PHYSICAL THERAPY TO PROVIDE GAIT TRAINING TO ENSURE PATIENT SAFETY AND PREVENT FALLS. PHYSICAL THERAPIST FOR OBSERVATION / ASSESSMENT OF INTEGUMENTARY STATUS FOR EARLY IDENTIFICATION OF COMPLICATIONS. THERAPIST TO INSTRUCT PATIENT/CAREGIVER IN SAFE USE OF COLD OR HEAT THERAPY TO CERVICAL SPINE FOR 20 MIN AT PRN TO REDUCE PAIN/EDEMA TO IMPROVE MOBILITY PHYSICAL THERAPIST TO REVIEW MEDICATION PROFILE AND RECONCILE MEDICATIONS NEEDED. PHYSICAL THERAPIST MAY INSTRUCT AND REINFORCE MEDICATION TEACHING RELATED TO USE OF MEDICATIONS TO TREAT DISEASE PROCESSES.] Future Scheduled Test OCCUPATION AL THERAPIST TO EVALUATE/ASSESS PATIENT AND DEVELOP PLAN OF CARE. [code = OCCUPATIONAL THERAPIST TO EVALUATE/ASSESS PATIENT AND DEVELOP PLAN OF CARE.] Future Scheduled Test OCCUPATION AL THERAPIST TO EVALUATE PATIENT AND ESTABLISH PLAN OF CARE. OCCUPATIONAL THERAPY TO ESTABLISH/UPGRADE HOME EXERCISE PROGRAM AND PROVIDE THERAPEUTIC EXERCISES DESIGNED TO RESTORE FUNCTIONAL STRENGTH AND ROM. OCCUPATIONAL THERAPY TO PROVIDE MANUAL THERAPY TECHNIQUES TO IMPROVE JOINT FUNCTION. OCCUPATIONAL THERAPY TO INSTRUCT IN STRATEGIES FOR SAFE BATHROOM TRANSFERS INCLUDING BODY MECHANICS AND EQUIPMENT. OCCUPATIONAL THERAPIST TO PROVIDE TRAINING IN USE OF ASSISTIVE DEVICES/STRATEGIES TO IMPROVE PATIENT SAFETY IN FUNCTIONAL ACTIVITIES. OCCUPATIONAL THERAPIST/BULB GRADER TO OBTAIN 02 SATS EACH VISIT TO MEASURE RESPONSE TO ACTIVITY OCCUPATIONAL THERAPIST TO EDUCATE PATIENT / CAREGIVER ON SAFETY RECOMMENDATIONS FOR HOME ENVIRONMENT, TO REDUCE FALL RISK. OCCUPATIONALTHERAPIST TO PROVIDE INSTRUCTION REGARDING PAIN CONTROL METHODOLOGIES. OCCUPATIONAL THERAPY TO PROVIDE NEURODEVELOPMENT TREATMENT BY ELICITING AND/OR INHIBITING STEREOTYPED, PATTERENED AND/OR INVOLUNTARY RESPONSES THERAPIST TO INSTRUCT PATIENT/CAREGIVER IN SAFE USE OF HEATING MODALITY TO THE LEFT SHOULDER AND SCAPULAR REGION AND LEFT SHOULDER REGION WITH BARRIER BETWEEN SKIN AND HEAT WITH SKIN CHECKS POST USE ON FOR 20 OFF FOR 1 HOUR MINUTES 3 TO 5 TIMES PER DAY TO IMPROVE MOBILITY. THERAPIST TO INSTRUCT PATIENT/CAREGIVER IN SAFE USE OF COLD THERAPY TO THE CERVICAL NECK REGION WITH BARRIER BETWEEN SKIN AND ICE WITH SKIN CHECKS POST USE ON FOR 20 MINUTES 3 TO 5 TIMES PER DAY TO REDUCE PAIN/EDEMA FOR IMPROVED MOBILITY OCCUPATIONAL THERAPIST TO REVIEW MEDICATION PROFILE AND RECONCILE MEDICATIONS NEEDED. OCCUPATION THERAPIST MAY INSTRUCT AND REINFORCE MEDICATION TEACHING RELATED TO THE USE OF MEDICATIONS TO TREATE DISEASE PROCESSES. [code = OCCUPATIONAL THERAPIST TO EVALUATE PATIENT AND ESTABLISH PLAN OF CARE. OCCUPATIONAL THERAPY TO ESTABLISH/UPGRADE HOME EXERCISE PROGRAM AND PROVIDE THERAPEUTIC EXERCISES DESIGNED TO RESTORE FUNCTIONAL STRENGTH AND ROM. OCCUPATIONAL THERAPY TO PROVIDE MANUAL THERAPY TECHNIQUES TO IMPROVE JOINT FUNCTION. OCCUPATIONAL THERAPY TO INSTRUCT IN STRATEGIES FOR SAFE BATHROOM TRANSFERS INCLUDING BODY MECHANICS AND EQUIPMENT. OCCUPATIONAL THERAPIST TO PROVIDE TRAINING IN USE OF ASSISTIVE DEVICES/STRATEGIES TO IMPROVE PATIENT SAFETY IN FUNCTIONAL ACTIVITIES. OCCUPATIONAL THERAPIST/BULB GRADER TO OBTAIN 02 SATS EACH VISIT TO MEASURE RESPONSE TO ACTIVITY OCCUPATIONAL THERAPIST TO EDUCATE PATIENT / CAREGIVER ON SAFETY RECOMMENDATIONS FOR HOME ENVIRONMENT, TO REDUCE FALL RISK. OCCUPATIONALTHERAPIST TO PROVIDE INSTRUCTION REGARDING PAIN CONTROL METHODOLOGIES. OCCUPATIONAL THERAPY TO PROVIDE NEURODEVELOPMENT TREATMENT BY ELICITING AND/OR INHIBITING STEREOTYPED, PATTERENED AND/OR INVOLUNTARY RESPONSES THERAPIST TO INSTRUCT PATIENT/CAREGIVER IN SAFE USE OF HEATING MODALITY TO THE LEFT SHOULDER AND SCAPULAR REGION AND LEFT SHOULDER REGION WITH BARRIER BETWEEN SKIN AND HEAT WITH SKIN CHECKS POST USE ON FOR 20 OFF FOR 1 HOUR MINUTES 3 TO 5 TIMES PER DAY TO IMPROVE MOBILITY. THERAPIST TO INSTRUCT PATIENT/CAREGIVER IN SAFE USE OF COLD THERAPY TO THE CERVICAL NECK REGION WITH BARRIER BETWEEN SKIN AND ICE WITH SKIN CHECKS POST USE ON FOR 20 MINUTES 3 TO 5 TIMES PER DAY TO REDUCE PAIN/EDEMA FOR IMPROVED MOBILITY OCCUPATIONAL THERAPIST TO REVIEW MEDICATION PROFILE AND RECONCILE MEDICATIONS NEEDED. OCCUPATION THERAPIST MAY INSTRUCT AND REINFORCE MEDICATION TEACHING RELATED TO THE USE OF MEDICATIONS TO TREATE DISEASE PROCESSES.] Goal Patient Goal - I WANT TO WALK WITHOUT THIS WALKER Goal Provider Goal - A PLAN OF CARE WILL BE ESTABLISHED THAT MEETS ALL PATIENT'S NURSING NEEDS AND COUNTERSIGNED BY PHYSICIAN. Goal Provider Goal - PATIENT WILL DEMONSTRATE OXYGEN SATURATION WITH NORMAL LIMITS OR TO PATIENT S OPTIMAL LEVEL ESTABLISHED BY THE PHYSICIAN Goal Provider Goal - PATIENT WILL DEMONSTRATE / VERBALIZE KNOWLEDGE OF INTERVENTIONS TO PREVENT FALLS AND SAFETY HAZARDS. PATIENT WILL REMAIN SAFE WITHIN HOME ENVIRONMENT. Goal Provider Goal - PATIENT WILL HAVE NO HOSPITALIZATIONS / ER VISITS DURING THIS EPISODE Goal Provider Goal - INCREASED PAIN OR PAIN CONTROL MEASURES WILL BE IDENTIFIED AND PROMPTLY REPORTED TO THE PHYSICIAN. PATIENT / CAREGIVER WILL VERBALIZE UNDERSTANDING OF PHARMACOLOGIC AND NON-PHARMACOLOGIC PAIN CONTROL MEASURES. Goal Provider Goal - PATIENT WILL RECEIVE MEDICATIONS PRESCRIBED. Goal Provider Goal - A PHYSICAL THERAPY ASSESSMENT WILL BE COMPLETED AND THE PLAN OF CARE WILL BE ESTABLISHED AND COMMUNICATED TO PATIENTS PHYSICIAN. Goal Provider Goal - OCCUPATIONAL THERAPIST WILL ASSESS PATIENT AND DEVELOP PLAN OF CARE TO BE COMMUNICATED TO PATIENTS PHYSICIAN Goal Provider Goal - PATIENT / CAREGIVER WILL VERBALIZE/DEMONSTRATE ABILITY TO PERFORM WOUND CARE. WOUND STATUS WILL IMPROVE EVIDENCED BY A DECREASE IN SIZE, DRAINAGE, ABSENCE OF INFECTION, AND DECREASED PAIN. Goal Provider Goal - A PHYSICAL THERAPY ASSESSMENT WILL BE COMPLETED AND THE PLAN OF CARE WILL BE ESTABLISHED AND COMMUNICATED TO PATIENTS PHYSICIAN. PATIENT WILL DEMONSTRATE INCREASED SAFETY AND INDEPENDENCE IN ACTIVITY FROM IMPROVED FUNCTIONAL STRENGTH AND ROM. PATIENT WILL DEMONSTRATE SAFE BED MOBILITY. PATIENT/CAREGIVER TO DEMONSTRATE DECREASED FALL RISK DURING FUNCTIONAL ACTIVITIES. PATIENT / CAREGIVER WILL DEMONSTRATE SAFE TRANSFERS USING APPROPRIATE BODY MECHANICS AND EQUIPMENT. PATIENT WILL DEMONSTRATE OXYGEN SATURATION WITH NORMAL LIMITS OR TO PATIENT'S OPTIMAL LEVEL ESTABLISHED BY THE PHYSICIAN. PATIENT WILL DEMONSTRATE SAFE GAIT TECHNIQUE WITH/WITHOUT ASSISTIVE DEVICES NEEDED TO MINIMIZE RISK OF FALL. SKIN BREAKDOWN WILL BE IDENTIFIED AND MEASURES TO RESOLVE BREAKDOWN IMPLEMENTED PROMPTLY. PATIENT WILL DEMONSTRATE SAFE USE OF COLD OR HEAT THERAPY TO REDUCE PAIN/EDEMA AND INCREASE MOBILITY. PATIENT WILL RECEIVE MEDICATIONS PRESCRIBED. Goal Provider Goal - OCCUPATIONAL THERAPIST WILL ASSESS PATIENT AND DEVELOP PLAN OF CARE TO BE COMMUNICATED TO PATIENTS PHYSICIAN PATIENT WILL DEMONSTRATE IMPROVED FUNCTION IN RESPONSE TO THERAPEUTIC EXERCISES EVIDENCED BY INCREASED INDEPENDENCE IN ACTIVITIES OF DAILY LIVING. PATIENT WILL DEMONSTRATE IMPROVED JOINT MOBILITY. PATIENT / CAREGIVER WILL DEMONSTRATE SAFE BATHROOM TRANSFERS USING APPROPRIATE BODY MECHANICS AND/OR EQUIPMENT. PATIENT/CAREGIVER WILL DEMONSTRATE INDEPENDENCE WITH ASSISTIVE DEVICE/ADAPTIVE STRATEGIES FOR INCREASED SAFETY IN FUNCTIONAL MOBILITY DURING DAILY ACTIVITIES. PATIENT WILL DEMONSTRATE OXYGEN SATURATION WITH NORMAL LIMITS OR TO PATIENT'S OPTIMAL LEVEL ESTABLISHED BY THE PHYSICIAN. PATIENT / CAREGIVER TO DEMONSTRATE INCREASED SAFETY IN HOME ENVIRONMENT EVIDENCED BY DECREASED FALL RISK. PATIENT / CAREGIVER WILL DEMONSTRATE EFFECTIVE USE OF PAIN CONTROL METHODS. PATIENT WILL DEMONSTRATE IMPROVED NEURODEVELOPMENTAL SKILLS EVIDENCED BY CONTROLLED, PURPOSEFUL MOVEMENTS. PATIENT WILL DEMONSTRATE SAFE USE OF HEATING MODALITY TO PROMOTE RELAXATION/REDUCE PAIN FOR IMPROVED MOBILITY. PATIENT WILL DEMONSTRATE SAFE USE OF COLD THERAPY TO REDUCE PAIN/EDEMA AND INCREASE MOBILITY. PATIENT WILL RECEIVE MEDICATIONS PRESCRIBED. Progress Notes Progress Notes <paragraph>[Visit Date: 2024 by TAMAR ACUÑA RN]:</paragraph><paragraph>SUMMARY OF CARE PROVIDED BY ALL DISCIPLINES: ADMITTED TO [facility]OM[facility]ARE FOLLOWING SHORT STAY AT SNF FOLLOWING ANTERIOR CERVICAL FUSION- COMPLICATIONS FOLLOWING SURGERY INCLUDE DVT AND UTI RESULTING IN PLACEMENT OF SHORT CATHETER. </paragraph><paragraph>ADDITIONAL NURSING CARE PROVIDED FOR DTI ON RIGHT HEEL WHICH HAS SINCE RESOLVED. </paragraph><paragraph>CERVICAL INCISION IS HEALED. UNFORTUNATELY PATIENT HAS FAILED MULTIPLE VOIDING TRIALS AND STILL HAS SHORT CATHETER. </paragraph><paragraph>HE REPORTS PAIN IN BILATERAL ARMS/NUMBNESS IN BOTH HANDS, AND ONGOING RIGHT ANKLE PAIN. HE WAS SEEN BY SURGEON LAST WEEK WITH SOME IMAGING COMPLETED. HE IS AWAITING A CALL TO SCHEDULE CT AND MRI WITH DISCUSSION OF POSSIBLE SURGICAL INTERVENTION IN THE FUTURE. HE WAS RECENTLY STARTED ON GABAPENTIN FOR NERVE PAIN IN ARMS/HANDS. </paragraph><paragraph></paragraph><paragraph>REASON FOR DISCHARGE: (GOALS MET, PT/FAMILY REQUEST, TRANSITION TO OUTPATIENT SERVICES, UNABLE TO REACH PATIENT, MAX LEVEL ACHIEVED)NURSING GOALS MET</paragraph><paragraph></paragraph><paragraph>PATIENT/CAREGIVER MED LIST UPDATED UPON DISCHARGE: MANAGED BY SPOUSE - UPDATED </paragraph><paragraph></paragraph><paragraph>MEDICATION: NEW RX GABAPENTIN </paragraph><paragraph></paragraph><paragraph>CURRENT LEVEL OF FUNCTIONAL MOBILITY: ASSIST FOR ADLS AND AMBULATION WITH WALKER</paragraph><paragraph></paragraph><paragraph>EDUCATION PROVIDED & PATIENT RESPONSE: INSTRUCTION WITH GOALS MET ON SKIN INTEGRITY AND PRESSURE WOUND PREVENTION AND HEALING.</paragraph><paragraph>INSTRUCTED PAIN MANAGMENT- MEDICATIONS, ICE/HEAT/MASSAGE/POSITIONING + TEACH BACK </paragraph><paragraph>INSTRUCTED SHORT CATHETER CARE AND MANAGEMENT, PREVENTION OF UTI, S/S OF UTI, HYGIENE RELATED TO SHORT. + TEACH BACK </paragraph><paragraph>INSTRUCTEF FALL PREVENTION, USE OF WALKER, ASSISTANCE WITH BALANCE AND BATHING. + TEACH BACK</paragraph><paragraph>INSTRUCTED MEDICATIONS USE AND EFFECTS + TEACH BACK </paragraph><paragraph>INSTRUCTED S/S AND WHEN TO CONTACT PROVIDER</paragraph><paragraph>PATIENT AND SPOUSE VERBALIZED AGREEMENT WITH NURSING D/C TODAY-</paragraph> Encounters Start Date/Time End Date/Time Encounter Type Admission Type Attending [facility] Care Department Encounter ID Discharge Date Discharge Status Discharge Condition Discharge Reason Percent Goals Met 2025-02-22 00:00:00 2025-04-22 00:00:00 Outpatient NEW ADMISSION [facility] [id number] 62.30
--- OUTSIDE RECORDS SUMMARY | 2025-04-21 19:00 | XMS_ITS | Clinical Summary ---
Author Organization Unknown Care Team Providers Care User Experience Developer Name Role Phone DIANA HAGEN Unavailable Unavailable EMERITA PT, DENNISE Unavailable Unavailable [facility] ANALYST, KAREN Unavailable Unavailable CONNER OT, DYANN Unavailable Unavailable OUIMET AIDE, SANDI Unavailable Unavaila ble GELA HORTON, CASSIDY Unavailable Unavailabl e Payers Payer Name Policy Type Policy Number Effective Date Expira tion Date [facility] - COMMERCIAL - PER VISIT [id number] SELF PAY Problems Condition Name Condition Details [...] [BMI] 36.0-36.9, ADULT Active 02-22 00:00: 00 GLOBAL CTO (CURRENT) USE OF ANTICOAGULAN TS Active 02-22 [...] 5 mg tablet 02-08 00:00: 00 Yes [id number] BLOOD CLOT 5 mg 2 TIMES DAILY 5 mg 2 TIMES DAILY (route: oral) Med Classific ation: Hematolog ical Agents tamsulosin 0.4 mg capsule 02-08 00:00: 00 Yes [id number] 2 capsule BEDTIME 2 capsule BEDTIME (route: oral) Med Classific ation: Genitouri nary Therapy docusate sodium 100 mg capsule 01-25 00:00: 00 02-22 00:00 :00 No [id number] Per instruc tions Per instructio ns (route: oral) Med Classific ation: Gastroint estinal Therapy Agents oxycodone 5 mg tablet 01-25 00:00: 00 04-04 23:59 :00 No [id number] PAIN 5 mg EVERY 8 HOURS 5 mg EVERY 8 HOURS (route: oral) Med Classific ation: Analgesic , Anti-infl ammatory or Antipyret ic methocarbam ol 750 mg tablet 01-08 00:00: 00 Yes [id number] SPASM 750 mg EVERY 12 HOURS 750 mg EVERY 12 HOURS (route: oral) Med Classific ation: Locomotor System naproxen 500 mg tablet 01-08 00:00: 00 02-22 00:00 :00 No [id number] Per instruc tions TWICE A DAY NEEDED Per instructio ns TWICE A DAY NEEDED (route: oral) Med Classific ation: Analgesic , Anti-infl ammatory or Antipyret ic amlodipine 10 mg tablet 02-22 00:00: 00 Yes [id number] BLOOD PRESSURE 10 mg DAILY 10 mg DAILY (route: oral) Med Classific ation: Cardiovas cular Therapy Agents carvedilol 25 mg tablet 02-22 00:00: 00 Yes [id number] BLOOD PRESSURE 25 mg 2 TIMES DAILY 25 mg 2 TIMES DAILY (route: oral) Med Classific ation: Cardiovas cular Therapy Agents gabapentin 300 mg capsule 2024-06 00:00: 00 Yes [id number] NEUROPATI PAIN 1 capsule 3 TIMES DAILY 1 capsule 3 TIMES DAILY (route: oral) Med Classific ation: Central Nervous System Agents hydrocodone 10 mg-acetamin ophen 325 mg tablet 2024-06 00:00: 00 Yes [id number] PAIN 1 tablet NEEDED 1 tablet NEEDED [...] BODY MECHANICS AND/OR USE OF EQUIPMENT. PHYSICAL THERAPIST/TOOL AND DIE TECHNICIAN TO OBTAIN O2 SATS EACH VISIT TO [...] BODY MECHANICS AND/OR USE OF EQUIPMENT. PHYSICAL THERAPIST/TOOL AND DIE TECHNICIAN TO OBTAIN O2 SATS EACH VISIT TO [...] IMPROVE PATIENT SAFETY IN FUNCTIONAL ACTIVITIES. OCCUPATIONAL THERAPIST/TOOL AND DIE TECHNICIAN TO OBTAIN 02 SATS EACH VISIT TO [...] IMPROVE PATIENT SAFETY IN FUNCTIONAL ACTIVITIES. OCCUPATIONAL THERAPIST/TOOL AND DIE TECHNICIAN TO OBTAIN 02 SATS EACH VISIT TO [...] End Date/Time Encounter Type Admission Type Attending [facility] Care Department Encounter ID Discharge Date Discharge Status Discharge Condition Discharge Reason Percent Goals Met 2025-02-22 00:00:00 2025-04-22 00:00:00 Outpatient NEW ADMISSION [facility] [id number] 62.30
== END 2025-04-07 12:38 | disposition home or self-care (01) ==
LOC: HO.CT 12:37
PROVIDERS: Visit Provider Physician Assistant
DX: Z98.1 Arthrodesis status (principal); G95.9 Disease of spinal cord, unspecified
CPT/HCPCS: 72125

== ENCOUNTER → 2025-04-07 12:38 | Outpatient (BNV) | payer BC, SELFPAY | PROVIDERS: Visit Provider Radiology Diagnostic Radiology | DX: M47.812 Spondylosis without myelopathy or radiculopathy, cervical region (principal); M25.78 Osteophyte, vertebrae; Z98.1 Arthrodesis status | CPT/HCPCS: 72125 ==

== ENCOUNTER 2025-04-07 13:31 | Outpatient (AMB) | payer BC, SELFPAY ==
--- NOTE | 2025-04-07 14:39 | A.SPINEOV_ITS ---
Intake Visit Reasons: STAT CT f/u Intake Note: Mr. Jackson is here today to F/u on the results to his CT. Folder Machine Required: No Allergies No Known Allergies Allergy (Verified 02/13/25 09:19) Assessment & Plan Assessment & Plan (1) S/P cervical spinal fusion: Code(s): Z98.1 - Arthrodesis status Category: Medical (2) Cervical myelopathy: Code(s): G95.9 - Disease of spinal cord, unspecified Category: Medical Plan Mr jackson is here in follow-up. His CT scan shows that he has evidence of good placement of the hardware and no signs of pseudoarthrosis. In fact the bones appear to have almost already fused themselves. There is auto fusion at C2-3 as well as C6-[address] Davidson reviewed his films with me. We suspect his neck pain is coming from the fact that his cervical spine is more less fused completely at this point. He has some degree of dish and this is giving him the hyperostosis and auto fusion. With regard to his neurological exam, he is getting better and reports symptomatically he is improved compared to where he was before surgery. Today he came in with a walker whereas before he came in with a wheelchair. He still has a leg bag and a Phoenix catheter due to urinary retention when he was at [facility] that ultimately led to bacteremia and sepsis. On exam his hand strength is improved, it is now about 4-5. His upper extremity strength is nearly full. He is still some proximal leg weakness which is 3/5 but distal lower extremity strength is full. Overall he is clinically improving from the myelopathy, but the neck pain situation maybe come chronic. At this point we do not think any further imaging is needed. He can follow up in 6 months and check on his clinical status. Demetrius Davidson MD,PhD [facility] Coding Level of Care Code Global (31077) Diagnoses S/P cervical spinal fusion Z98.1 Cervical myelopathy G95.9
--- OUTSIDE RECORDS SUMMARY | 2025-04-07 15:37 | XMS_ITS | Encounter Summary ---
Author Organization [facility] Address [address] [place] [address] Care Team Providers Care Mainframe Analyst Name Role Phone Jenn Hu MD Primary Care Provider [phone] Encounter Details Date Type Department Care Team (Late st Contact Info) Description 02/12/2025 Lab Requisition [facility] - Main Lab [address] [facility] [place] [place] [address] Jenn Hu MD [address] [place] [address] Vitamin D deficiency, unspecified; Cervicalgia; Weakness; Essential [...] LAB CHEMISTRY METHOD 02/13/2025 2:24 PM EDT [facility] Potassium 3.2(L) 3.5 - 5.5 mmol/L LAB CHEMISTRY METHOD 02/13/2025 2:24 PM EDT [facility] Chloride 109 96 - 110 mmol/L LAB CHEMISTRY METHOD 02/13/2025 2:24 PM T [facility] CO2 24 21 - 32 mmol/L LAB CHEMISTRY METHOD 02/13/2025 2:24 PM EDT [facility] Anion Gap 9 3 - 11 LAB CHEMISTRY METHOD 02/13/2025 2:24 PM EDT [facility] Glucose 68(L) 70 - 100 mg/dL LAB CHEMISTRY METHOD 02/13/2025 2:24 PM EDT [facility] BUN 5 5 - 25 mg/dL LAB CHEMISTRY METHOD 02/13/2025 2:24 PM EDT [facility] Creatinine 0.54(L) 0.70 - 1.30 mg/dL LAB CHEMISTRY METHOD 02/13/2025 2:24 PM EDT [facility] eGFR 112 >=60 mL/min/1. 73m2 LAB CHEMISTRY METHOD 02/13/2025 2:24 PM EDT [facility] Comment:Calculation based on the Chronic Kidney Disease Epidemiology Collaboration (CKD-EPI) equation refit without adjustment for race. BUN/Creatinine Ratio 9.3 LAB CHEMISTRY METHOD 02/13/2025 2:24 PM EDT [facility] Calcium 8.9 8.5 - 10.5 mg/dL LAB CHEMISTRY METHOD 02/13/2025 2:24 PM T [facility] Blood Venous blood specimen / Unknown Venipuncture / Unknown 02/13/2025 5:40 AM EDT 02/13/2025 10:40 AM EDT us Jenn Hu MD LAB BLOOD ORDERABLES Final Resul t [facility] [address] [place] [address], * (ABNORMAL) Complete blood count (02/13/2025 5:40 AM EDT) WBC 8.8 4.8 - 10.8 K/mcL LAB HEMETOLOGY METHOD 02/13/2025 11:08 AM EDT [facility] RBC 3.30(L) 4.50 - 5.50 M/mcL LAB HEMETOLOGY METHOD 02/13/2025 11:08 AM [facility] Hemoglobin 11.2(L) 13.5 - 17.5 g/dL LAB HEMETOLOGY METHOD 02/13/2025 11:08 AM [facility] Hematocrit 32.1(L) 42.0 - 54.0 % LAB HEMETOLOGY METHOD 02/13/2025 11:08 AM [facility] MCV 96.1 79.0 - 98.0 FL LAB HEMETOLOGY METHOD 02/13/2025 11:08 AM [facility] MCH 33.5(H) 27.0 - 32.0 pcg LAB HEMETOLOGY METHOD 02/13/2025 11:08 AM [facility] MCHC 34.9 32.0 - 37.0 g/dL LAB HEMETOLOGY METHOD 02/13/2025 11:08 AM [facility] RDW 11.6 11.0 - 15.0 % LAB HEMETOLOGY METHOD 02/13/2025 11:08 AM [facility] Platelets 337 130 - 400 K/mcL LAB HEMETOLOGY METHOD 02/13/2025 11:08 AM [facility] MPV 9.8 7.0 - 11.0 FL LAB HEMETOLOGY METHOD 02/13/2025 11:08 AM [facility] NRBC 0.0 <1.0 % LAB HEMETOLOGY METHOD 02/13/2025 11:08 AM [facility] NRBC Absolute 0.00 <0.10 K/mcL LAB HEMETOLOGY METHOD 02/13/2025 11:08 AM [facility] Blood Venous blood specimen / Unknown Venipuncture / Unknown 02/13/2025 5:40 AM EDT 02/13/2025 10:41 AM EDT Jenn Hu MD LAB BLOOD ORDERABLES Final Resul t [facility] [address] [place] [address], documented in this encounter Visit Diagnoses Diagnosis Vitamin D deficiency, unspecified Cervicalgia Weakness Other malaise and fatigue Essential (primary) hypertension Unspecified essential hypertension documented in this encounter Care Teams Mainframe Analyst Relationship Specialty Start Date End Date Jenn Hu MD [address] [place] [address] [address] [place] [address] PCP - General Geriatric Medicine 02/01/25 documented as of this encounter
--- OUTSIDE RECORDS SUMMARY | 2025-04-07 15:37 | XMS_ITS | Encounter Summary ---
Author Organization [facility] Address [address] [place] [address] Care Team Providers Care Licensed Vocational Nurse Name Role Phone Jenn Hu MD Primary Care Provider [phone] Encounter Details Date Type Department Care Team (Late st Contact Info) Description 02/05/2025 Lab Requisition [facility] - Main Lab [address] [facility] [place] [address] Jenn Hu MD [address] [place] [address] Chronic kidney disease, unspecified Social History Tobacco [...] 5:01 PM EDT Enid Hill RN * [place] Suicide Severity Rating Scale (Screener/Recent Self-Report) Question [...] documented as of this encounter Care Teams Licensed Vocational Nurse Relationship Specialty Start Date End Date Jenn Hu MD [address] [place] [address] [address] [place] [address] PCP - General Geriatric Medicine 02/01/25 documented as of this encounter
--- OUTSIDE RECORDS SUMMARY | 2025-04-07 15:37 | XMS_ITS | Encounter Summary ---
Author Organization [facility] Address [address] [place] [address] Care Team Providers Care Textile Machinery Sales Representative Name Role Phone Jenn Hu MD Primary Care Provider [phone] Encounter Details Date Type Department Care Team (Late st Contact Info) Description 02/10/2025 Lab Requisition [facility] - Main Lab [address] [facility] [place] [address] Jenn Hu MD [address] [place] [address] Urinary tract infection, site not specified Social [...] Assessment Author No 01/29/2025 4:44 PM EDT Cateirna Paiz RN documented as of this encounter [...] CBC auto differential (02/10/2025 6:59 AM EDT) [facility] WBC 11.7(H) 4.8 - 10.8 K/[facility] LAB HEMETOLOGY METHOD 02/10/2025 10:44 AM EDT [facility] RBC 3.40(L) 4.50 - 5.50 M/mcL LAB HEMETOLOGY METHOD 02/10/2025 10:44 AM [facility] Hemoglobin 11.3(L) 13.5 - 17.5 g/dL LAB HEMETOLOGY METHOD 02/10/2025 10:44 AM [facility] Hematocrit 33.3(L) 42.0 - 54.0 % LAB HEMETOLOGY METHOD 02/10/2025 10:44 AM [facility] MCV 97.4 79.0 - 98.0 FL LAB HEMETOLOGY METHOD 02/10/2025 10:44 AM [facility] MCH 33.0(H) 27.0 - 32.0 pcg LAB HEMETOLOGY METHOD 02/10/2025 10:44 AM [facility] MCHC 33.9 32.0 - 37.0 g/dL LAB HEMETOLOGY METHOD 02/10/2025 10:44 AM [facility] RDW 11.6 11.0 - 15.0 % LAB HEMETOLOGY METHOD 02/10/2025 10:44 AM [facility] Platelets 312 130 - 400 K/mcL LAB HEMETOLOGY METHOD 02/10/2025 10:44 AM [facility] MPV 10.1 7.0 - 11.0 FL LAB HEMETOLOGY METHOD 02/10/2025 10:44 AM [facility] NRBC 0.0 <1.0 % LAB HEMETOLOGY METHOD 02/10/2025 10:44 AM [facility] NRBC Absolute 0.00 <0.10 K/mcL LAB HEMETOLOGY METHOD 02/10/2025 10:44 AM [facility] Neutrophils Relative 72.4 % LAB HEMETOLOGY METHOD 02/10/2025 10:44 AM [facility] Lymphocytes Relative 15.3 % LAB HEMETOLOGY METHOD 02/10/2025 10:44 AM [facility] Monocytes Relative 7.8 % LAB HEMETOLOGY METHOD 02/10/2025 10:44 AM [facility] Eosinophils Relative 2.7 % LAB HEMETOLOGY METHOD 02/10/2025 10:44 AM [facility] Basophils Relative 0.3 % LAB HEMETOLOGY METHOD 02/10/2025 10:44 AM [facility] Immature Granulocytes Relative 1.5 % LAB HEMETOLOGY METHOD 02/10/2025 10:44 AM [facility] Neutrophils Absolute 8.46(H) 1.50 - 7.00 K/mcL LAB HEMETOLOGY METHOD 02/10/2025 10:44 AM [facility] Lymphocytes Absolute 1.79 1.00 - 5.00 K/mcL LAB HEMETOLOGY METHOD 02/10/2025 10:44 AM [facility] Monocytes Absolute 0.91 0.20 - 1.00 K/mcL LAB HEMETOLOGY METHOD 02/10/2025 10:44 AM [facility] Eosinophils Absolute 0.32 0.00 - 0.50 K/mcL LAB HEMETOLOGY METHOD 02/10/2025 10:44 AM [facility] Basophils Absolute 0.04 0.00 - 0.20 K/mcL LAB HEMETOLOGY METHOD 02/10/2025 10:44 AM [facility] Immature Granulocytes Absolute 0.18(H) 0.00 - 0.03 K/mcL LAB HEMETOLOGY METHOD 02/10/2025 10:44 AM [facility] Blood Venous blood specimen / Unknown Venipuncture / Unknown 02/10/2025 6:59 AM EDT 02/10/2025 9:24 AM EDT us Fahim A Mayte MD LAB BLOOD ORDERABLES Final Resul t Performing Organization Address City/[facility]/ZIP Co de Phone Number [facility] [address] [place] [address], [place] [phone] * Vitamin B12 and folate (02/10/2025 6:59 AM EDT) Pathologist [facility] Vitamin B-12 311 250 - [...] Performing Organization Address [facility] Co de Phone Number [facility] [address] [place] [address], [place] [phone] * Thyroid stimulating hormone (02/10/2025 6:59 AM EDT) [facility] TSH 0.71 0.40 - 4.00 mcIU/mL LAB CHEMISTRY METHOD 02/10/2025 12:07 PM EDT [facility] Blood Venous blood specimen / Unknown Venipuncture / Unknown 02/10/2025 6:59 AM EDT 02/10/2025 9:24 AM EDT us Jenn Hu MD LAB BLOOD ORDERABLES Final Resul t Performing Organization Address City/[facility]/ZIP Co de Phone Number [facility] [address] [place] [address], [place] [phone] * (ABNORMAL) Basic metabolic panel (02/10/2025 6:59 AM EDT) Sodium 139 133 - 145 mmol/L LAB CHEMISTRY METHOD 02/10/2025 11:15 AM [facility] Potassium 3.6 3.5 - 5.5 mmol/L LAB CHEMISTRY METHOD 02/10/2025 11:15 AM [facility] Chloride 106 96 - 110 mmol/L LAB CHEMISTRY METHOD 02/10/2025 11:15 AM [facility] CO2 26 21 - 32 mmol/L LAB CHEMISTRY METHOD 02/10/2025 11:15 AM [facility] Anion Gap 7 3 - 11 LAB CHEMISTRY METHOD 02/10/2025 11:15 AM [facility] Glucose 84 70 - 100 mg/dL LAB CHEMISTRY METHOD 02/10/2025 11:15 AM [facility] BUN 6 5 - 25 mg/dL LAB CHEMISTRY METHOD 02/10/2025 11:15 AM [facility] Creatinine 0.61(L) 0.70 - 1.30 mg/dL LAB CHEMISTRY METHOD 02/10/2025 11:15 AM [facility] eGFR 108 >=60 mL/min/1. 73m2 LAB CHEMISTRY METHOD 02/10/2025 11:15 AM [facility] Comment:Calculation based on the Chronic Kidney Disease Epidemiology Collaboration (CKD-EPI) equation refit without adjustment for race. BUN/Creatinine Ratio 9.8 LAB CHEMISTRY METHOD 02/10/2025 11:15 AM [facility] Calcium 9.0 8.5 - 10.5 mg/dL LAB CHEMISTRY METHOD 02/10/2025 11:15 AM [facility] Blood Venous blood specimen / Unknown Venipuncture / Unknown 02/10/2025 6:59 AM EDT 02/10/2025 9:24 AM EDT Jenn Hu MD LAB BLOOD ORDERABLES Final Resul t [facility] [address] [place] [address], documented in this encounter Visit Diagnoses Diagnosis Urinary tract infection, site not specified documented in this encounter Care Teams Textile Machinery Sales Representative Relationship Specialty Start Date End Date Jenn Hu MD [address] [place] [address] [address] [place] [address] PCP - General Geriatric Medicine 02/01/25 documented as of this encounter
--- OUTSIDE RECORDS SUMMARY | 2025-04-07 15:37 | XMS_ITS | Encounter Summary ---
Author Organization [facility] Address [address] [place] [address] Care Team Providers Care Spinner Fixer Name Role Phone Jenn Hu MD Primary Care Provider [phone] Encounter Details Date Type Department Care Team (Late st Contact Info) Description 02/04/2025 Lab Requisition [facility] - Main Lab [address] [facility] [place] [address] Jenn Hu MD [address] [place] [address] Chronic kidney disease, unspecified Social History Tobacco [...] Author No 01/29/2025 4:44 PM EDT Caterina Pazi RN * Because of a physical, mental, or emotional condition, do you have serious difficulty doing errandsalone such as visiting the doctor? Answer Date of Assessment Author No 01/29/2025 4:44 PM EDT Caterina Paiz RN * Calculated C-SSRS Risk Score (Lifetime/Recent) Answer Date of Assessment Author No Risk Indicated 02/06/2025 5:01 PM EDT Enid Hill RN * [place] Suicide Severity Rating Scale (Screener/Recent Self-Report) Question [...] LAB CHEMISTRY METHOD 02/04/2025 12:12 PM T [facility] Potassium 3.1(L) 3.5 - 5.5 mmol/L LAB CHEMISTRY METHOD 02/04/2025 12:12 PM T [facility] Chloride 99 96 - 110 mmol/L LAB CHEMISTRY METHOD 02/04/2025 12:12 PM [facility] CO2 23 21 - 32 mmol/L LAB CHEMISTRY METHOD 02/04/2025 12:12 PM [facility] Anion Gap 10 3 - 11 LAB CHEMISTRY METHOD 02/04/2025 12:12 PM [facility] Glucose 78 70 - 100 mg/dL LAB CHEMISTRY METHOD 02/04/2025 12:12 PM [facility] BUN 66(H) 5 - 25 mg/dL LAB CHEMISTRY METHOD 02/04/2025 12:12 PM [facility] Creatinine 5.04(H) 0.70 - 1.30 mg/dL LAB CHEMISTRY METHOD 02/04/2025 12:12 PM [facility] eGFR 12(L) >=60 mL/min/1. 73m2 LAB CHEMISTRY METHOD 02/04/2025 12:12 PM [facility] Comment:Calculation based on the Chronic Kidney Disease Epidemiology Collaboration (CKD-EPI) equation refit without adjustment for race. BUN/Creatinine Ratio 13.1 LAB CHEMISTRY METHOD 02/04/2025 12:12 PM [facility] Calcium 8.9 8.5 - 10.5 mg/dL LAB CHEMISTRY METHOD 02/04/2025 12:12 PM [facility] Blood Venous blood specimen / Unknown Venipuncture / Unknown 02/04/2025 9:30 AM EDT 02/04/2025 11:17 AM EDT us Jenn Hu MD LAB BLOOD ORDERABLES Final Resul t [facility] [address] [place] [address], documented in this encounter Visit Diagnoses Diagnosis Chronic kidney disease, unspecified documented in this encounter Additional Health Concerns Infection Onset Date Last Indicated Resolved Time Respiratory Rule-Out 02/06/2025 02/07/2025 025 1:47 AM EDT COVID-19 Rule-Out 02/06/2025 02/07/2025 02/07/2025 1:47 AM EDT documented as of this encounter Care Teams Spinner Fixer Relationship Specialty Start Date End Date Jenn Hu MD [address] [place] [address] [address] [place] [address] PCP - General Geriatric Medicine 02/01/25 documented as of this encounter
--- OUTSIDE RECORDS SUMMARY | 2025-04-07 15:38 | XMS_ITS | Encounter Summary ---
Author Organization [facility] Address [address] [place] [address] Care Team Providers Care Baggage Handling Supervisor Name Role Phone Jenn Hu MD Primary Care Provider [phone] Encounter Details Date Type Department Care Team (Late st Contact Info) Description 02/17/2025 Lab Requisition [facility] - Main Lab [address] [facility] [place] [address] Jenn Hu MD [address] [place] [address] Vitamin D deficiency, unspecified; Cervicalgia; Weakness; Essential [...] hypertension documented in this encounter Care Teams Baggage Handling Supervisor Relationship Specialty Start Date End Date Jenn Hu MD [address] [place] [address] [address] [place] [address] PCP - General Geriatric Medicine 02/01/25 documented as of this encounter
--- OUTSIDE RECORDS SUMMARY | 2025-04-07 15:38 | XMS_ITS | Encounter Summary ---
Author Organization [facility] Address [address] [place] [address] Care Team Providers Care Lead Technical Architect Name Role Phone Jenn Hu MD Primary Care Provider [phone] Encounter Details Date Type Department Care Team (Late st Contact Info) Description 02/01/2025 Lab Requisition [facility] - Main Lab [address] [facility] [place] [address] Jenn Hu MD [address] [place] [address] Essential (primary) hypertension Social History Tobacco Use [...] 3:20 PM EDT Roseanne Webster RN * [place] Suicide Severity Rating Scale (Screener/Recent Self-Report) Question [...] Comprehensive metabolic panel (02/01/2025 8:24 AM EDT) [facility] Signature Sodium 139 133 - 145 mmol/L LAB CHEMISTRY METHOD 02/01/2025 11:49 AM [facility] Potassium 3.5 3.5 - 5.5 mmol/L LAB CHEMISTRY METHOD 02/01/2025 11:49 AM [facility] Chloride 103 96 - 110 mmol/L LAB CHEMISTRY METHOD 02/01/2025 11:49 AM [facility] CO2 25 21 - 32 mmol/L LAB CHEMISTRY METHOD 02/01/2025 11:49 AM [facility] Anion Gap 11 3 - 11 LAB CHEMISTRY METHOD 02/01/2025 11:49 AM [facility] Glucose 76 70 - 100 mg/dL LAB CHEMISTRY METHOD 02/01/2025 11:49 AM [facility] BUN 45(H) 5 - 25 mg/dL LAB CHEMISTRY METHOD 02/01/2025 11:49 AM [facility] Creatinine 6.49(H) 0.70 - 1.30 mg/dL LAB CHEMISTRY METHOD 02/01/2025 11:49 AM [facility] eGFR 9(L) >=60 mL/min/1. 73m2 LAB CHEMISTRY METHOD 02/01/2025 11:49 AM [facility] Comment:Calculation based on the Chronic Kidney Disease Epidemiology Collaboration (CKD-EPI) equation refit without adjustment for race. BUN/Creatinine Ratio 6.9 LAB CHEMISTRY METHOD 02/01/2025 11:49 AM [facility] Calcium 9.0 8.5 - 10.5 mg/dL LAB CHEMISTRY METHOD 02/01/2025 11:49 AM [facility] AST (SGOT) 22 10 - 42 unit/L LAB CHEMISTRY METHOD 02/01/2025 11:49 AM [facility] ALT (SGPT) 24 10 - 60 unit/L LAB CHEMISTRY METHOD 02/01/2025 11:49 AM [facility] Alkaline Phosphatase 88 42 - 121 unit/L LAB CHEMISTRY METHOD 02/01/2025 11:49 AM [facility] Total Protein 6.7 6.0 - 8.0 g/dL LAB CHEMISTRY METHOD 02/01/2025 11:49 AM [facility] Albumin 3.4 3.2 - 5.0 g/dL LAB CHEMISTRY METHOD 02/01/2025 11:49 AM [facility] Total Bilirubin 1.1 0.0 - 1.4 mg/dL LAB CHEMISTRY METHOD 02/01/2025 11:49 AM T [facility] Blood Venous blood specimen / Unknown Venipuncture / Unknown 02/01/2025 8:24 AM EDT 02/01/2025 10:42 AM EDT us Jenn Hu MD LAB BLOOD ORDERABLES Final Resul t [facility] [address] [place] [address], * (ABNORMAL) Complete blood count (02/01/2025 8:24 AM EDT) WBC 11.3(H) 4.8 - 10.8 K/mcL LAB HEMETOLOGY METHOD 02/01/2025 11:02 AM [facility] RBC 3.40(L) 4.50 - 5.50 M/mcL LAB HEMETOLOGY METHOD 02/01/2025 11:02 AM [facility] Hemoglobin 11.8(L) 13.5 - 17.5 g/dL LAB HEMETOLOGY METHOD 02/01/2025 11:02 AM [facility] Hematocrit 33.8(L) 42.0 - 54.0 % LAB HEMETOLOGY METHOD 02/01/2025 11:02 AM [facility] MCV 100.9(H) 79.0 - 98.0 FL LAB HEMETOLOGY METHOD 02/01/2025 11:02 AM [facility] MCH 35.2(H) 27.0 - 32.0 pcg LAB HEMETOLOGY METHOD 02/01/2025 11:02 AM [facility] MCHC 34.9 32.0 - 37.0 g/dL LAB HEMETOLOGY METHOD 02/01/2025 11:02 AM EDT [facility] RDW 11.5 11.0 - 15.0 % LAB HEMETOLOGY METHOD 02/01/2025 11:02 AM EDT [facility] Platelets 187 130 - 400 K/mcL LAB HEMETOLOGY METHOD 02/01/2025 11:02 AM EDT [facility] MPV 10.2 7.0 - 11.0 FL LAB HEMETOLOGY METHOD 02/01/2025 11:02 AM EDT [facility] NRBC 0.0 <1.0 % LAB HEMETOLOGY METHOD 02/01/2025 11:02 AM EDT [facility] NRBC Absolute 0.00 <0.10 K/mcL LAB HEMETOLOGY METHOD 02/01/2025 11:02 AM EDT [facility] Blood Venous blood specimen / Unknown Venipuncture / Unknown 02/01/2025 8:24 AM EDT 02/01/2025 10:42 AM EDT us Jenn Hu MD LAB BLOOD ORDERABLES Final Resul t [facility] [address] [place] [address], documented in this encounter Visit Diagnoses Diagnosis Essential (primary) hypertension Unspecified essential hypertension documented in this encounter Additional Health Concerns Infection Onset Date Last Indicated Resolved Time Respiratory Rule-Out 02/06/2025 02/07/20252 025 1:47 AM EDT COVID-19 Rule-Out 02/06/2025 02/07/2025 02/07/2025 1:47 AM EDT documented as of this encounter Care Teams Lead Technical Architect Relationship Specialty Start Date End Date Jenn Hu MD [address] [place] [address] [address] [place] [address] PCP - General Geriatric Medicine 02/01/25 documented as of this encounter
--- OUTSIDE RECORDS SUMMARY | 2025-04-07 15:38 | XMS_ITS | Encounter Summary ---
Author Organization [facility] Address [address] [place] [address] Care Team Providers Care Package Worker Name Role Phone Jenn Hu MD Primary Care Provider [phone] Encounter Details Date Type Department Care Team (Late st Contact Info) Description 02/03/2025 Lab Requisition [facility] - Main Lab [address] [facility] [place] [address] Jenn Hu MD [address] [place] [address] Vitamin D deficiency, unspecified; Cervicalgia; Weakness; Essential [...] 5:01 PM EDT Enid Hill RN * [place] Suicide Severity Rating Scale (Screener/Recent Self-Report) Question [...] documented as of this encounter Care Teams Package Worker Relationship Specialty Start Date End Date Jenn Hu MD [address] [place] [address] [address] [place] [address] PCP - General Geriatric Medicine 02/01/25 documented as of this encounter
--- OUTSIDE RECORDS SUMMARY | 2025-04-07 15:38 | XMS_ITS | Clinical Summary ---
Author Organization [facility] Address [address] [place] [address] Phone Care Team Providers Care Assembler Bonding Name Role Phone Jenn Hu MD Primary Care Provider [phone] Allergies No known active allergies Medications hydroCHLOROthiaz herlinda (MICROZIDE) 12.5 mg capsule Take 1 capsule (12.5 mg total) by mouth 1 (one) time each day. Active apixaban (ELIQUIS) 5 mg tabletIndication s:Deep vein thrombosis (DVT) of other vein of lower extremity, unspecified chronicity, unspecified laterality ([facility] V24, [facility] V28) Take 2 tablets (10 [...] Department Care Team Description 02/17/2025 Lab Requisition [facility] - Main Lab [address] [facility] [place] [address] Jenn Hu MD Vitamin D deficiency, unspecified; Cervicalgia; Weakness; Essential (primary) hypertension 02/12/2025 Lab Requisition [facility] Lab [address] [place] [phone] Jenn Hu MD Vitamin D deficiency, unspecified; Cervicalgia; Weakness; Essential (primary) hypertension 02/10/2025 Lab Requisition [facility] Lab [address] [place] [phone] Jenn Hu MD Urinary tract infection, site not specified 02/08/2025 Telephone [facility] Hematology Oncology [address] [place] [phone] Yon Delacruz MD 02/05/2025 Lab Requisition [facility] Lab [address] [place] [phone] Jenn Hu MD Chronic kidney disease, unspecified 02/04/2025 3:15 PM EDT - 02/09/2025 1:23 PM EDT Hospital Encounter [facility] Urology Unit [address] [place] [phone] Frances Edward MD Wyman, Tim, MD Ishtiaq, Rizwan, MD Alam, Aroosa, MD Nasser, Nada S, MD Kela, Kashyap Devendrabhai, MD Lower extremity edema (Primary Dx); Positive D dimer; Urinary retention; Deep vein thrombosis (DVT) of other vein of lower extremity, unspecified chronicity, unspecified laterality ([facility] V24, [facility] V28) Discharge Disposition: [facility] Facility 02/04/2025 Lab Requisition [facility] Lab [address] [place] [phone] Jenn Hu MD Chronic kidney disease, unspecified 02/03/2025 Lab Requisition [facility] Lab [address] [place] [phone] Jenn Hu MD Vitamin D deficiency, unspecified; Cervicalgia; Weakness; Essential (primary) hypertension 02/01/2025 Lab Requisition [facility] - Main Lab [address] [facility] [place] [address] Jenn Hu MD Essential (primary) hypertension 01/28/2025 4:40 AM EDT - 01/31/2025 4:18 PM EDT Emergency [facility] Emergency [address] [place] [phone] Augustin Henriquez MD Muhoozi, Bannet, MD Mersier, [...] of4 resultswithin the time period is included. [facility] WBC 8.8 4.8 - 10.8 K/mcL LAB [...] K/mcL LAB HEMETOLOGY [facility] Blood Venous blood specimen / Unknown Venipuncture / Unknown 02/13/2025 5:40 AM EDT 02/13/2025 10:41 AM EDT us Jenn Hu MD LAB BLOOD ORDERABLES Final Resul t [facility] [address] [place] [address], * (ABNORMAL) Basic metabolic panel (02/13/2025 5:40 AM EDT) Only the most recent of6 resultswithin the time period is included. [facility] Sodium 142 133 - 145 mmol/L LAB CHEMISTRY METHOD 02/13/2025 2:24 PM [facility] Potassium 3.2(L) 3.5 - 5.5 mmol/L LAB CHEMISTRY METHOD 02/13/2025 2:24 PM [facility] Chloride 109 96 - 110 mmol/L LAB CHEMISTRY METHOD 02/13/2025 2:24 PM [facility] CO2 24 21 - 32 mmol/L LAB CHEMISTRY METHOD 02/13/2025 2:24 PM [facility] Anion Gap 9 3 - 11 LAB CHEMISTRY METHOD 02/13/2025 2:24 PM [facility] Glucose 68(L) 70 - 100 mg/dL LAB CHEMISTRY METHOD 02/13/2025 2:24 PM [facility] BUN 5 5 - 25 mg/dL LAB CHEMISTRY METHOD 02/13/2025 2:24 PM [facility] Creatinine 0.54(L) 0.70 - 1.30 mg/dL LAB CHEMISTRY METHOD 02/13/2025 2:24 PM [facility] eGFR 112 >=60 mL/min/1. 73m2 LAB CHEMISTRY METHOD 02/13/2025 2:24 PM [facility] Comment:Calculation based on the Chronic Kidney Disease Epidemiology Collaboration (CKD-EPI) equation refit without adjustment for race. BUN/Creatinine Ratio 9.3 LAB CHEMISTRY METHOD 02/13/2025 2:24 PM [facility] Calcium 8.9 8.5 - 10.5 mg/dL LAB CHEMISTRY METHOD 02/13/2025 2:24 PM [facility] Blood Venous blood specimen / Unknown Venipuncture / Unknown 02/13/2025 5:40 AM EDT 02/13/2025 10:40 AM EDT Jenn Hu MD LAB BLOOD ORDERABLES Final Resul t [facility] [address] [place] [address], [place] [phone] * Vitamin B12 and folate (02/10/2025 6:59 AM EDT) [facility] Vitamin B-12 311 250 - 900 pcg/mL [...] ORDERABLES Final Resul t Performing Organization Address [facility]/ZIP Co de Phone Number [facility] [address] [place] [address], [place] [phone] * (ABNORMAL) CBC auto differential (02/10/2025 6:59 AM EDT) Only the most recent of5 resultswithin the time period is included. [facility] WBC 11.7(H) 4.8 - 10.8 K/mcL LAB [...] FL LAB HEMETOLOGY METHOD 02/10/2025 10:44 AM [facility] MCH 33.0(H) 27.0 - 32.0 pcg LAB HEMETOLOGY METHOD 02/10/2025 10:44 AM [facility] MCHC 33.9 32.0 - 37.0 g/dL LAB HEMETOLOGY METHOD 02/10/2025 10:44 AM [facility] RDW 11.6 11.0 - 15.0 % LAB HEMETOLOGY METHOD 02/10/2025 10:44 AM [facility] Platelets 312 130 - 400 K/mcL LAB HEMETOLOGY METHOD 02/10/2025 10:44 AM [facility] MPV 10.1 7.0 - 11.0 FL LAB HEMETOLOGY METHOD 02/10/2025 10:44 AM [facility] NRBC 0.0 <1.0 % LAB HEMETOLOGY METHOD 02/10/2025 10:44 AM [facility] NRBC Absolute 0.00 <0.10 K/mcL LAB HEMETOLOGY METHOD 02/10/2025 10:44 AM [facility] Neutrophils Relative 72.4 % LAB HEMETOLOGY METHOD 02/10/2025 10:44 AM [facility] Lymphocytes Relative 15.3 % LAB HEMETOLOGY METHOD 02/10/2025 10:44 AM [facility] Monocytes Relative 7.8 % LAB HEMETOLOGY METHOD 02/10/2025 10:44 AM [facility] Eosinophils Relative 2.7 % LAB HEMETOLOGY METHOD 02/10/2025 10:44 AM [facility] Basophils Relative 0.3 % LAB HEMETOLOGY METHOD 02/10/2025 10:44 AM [facility] Immature Granulocytes Relative 1.5 % LAB HEMETOLOGY METHOD 02/10/2025 10:44 AM EDT [facility] Neutrophils Absolute 8.46(H) 1.50 - 7.00 K/[facility] LAB HEMETOLOGY METHOD 02/10/2025 10:44 AM EDT [facility] Lymphocytes Absolute 1.79 1.00 - 5.00 K/mcL LAB HEMETOLOGY METHOD 02/10/2025 10:44 AM EDT [facility] Monocytes Absolute 0.91 0.20 - 1.00 K/[facility] LAB HEMETOLOGY METHOD 02/10/2025 10:44 AM EDT [facility] Eosinophils Absolute 0.32 0.00 - 0.50 K/[facility] LAB HEMETOLOGY METHOD 02/10/2025 10:44 AM EDT [...] t [facility] [address] [place] [address], * Thyroid stimulating hormone (02/10/2025 6:59 AM EDT) TSH 0.71 0.40 - 4.00 mcIU/mL LAB CHEMISTRY METHOD 02/10/2025 12:07 PM EDT [facility] Blood Venous blood specimen / Unknown Venipuncture / Unknown 02/10/2025 6:59 AM EDT 02/10/2025 9:24 AM EDT Jenn Hu MD LAB BLOOD ORDERABLES Final Resul t Performing Organization Address [facility] de Phone Number [facility] [address] [place] [address], * ECG-Outside (02/10/2025) Provider Onbase ECG ORDERABLES [...] ORDERABLES Final Resu lt Performing Organization Address [facility] de Phone Number [facility] [address] [place] [address], * Phosphorus (02/08/2025 5:31 AM EDT) Only [...] ORDERABLE S Final Result Performing Organization Address City/[facility]/ZIP Co de Phone Number [facility] [address] [place] [address], [place] [phone] * (ABNORMAL) Magnesium (02/08/2025 5:31 AM EDT) Only the most recent of4 resultswithin the time period is included. Pathologist [facility] Magnesium 1.8(L) 1.9 - 2.6 mg/dL LAB CHEMISTRY METHOD 02/08/2025 8:00 AM EDT [facility] Blood Venous blood specimen / Unknown Venipuncture / Unknown 02/08/2025 5:31 AM EDT 02/08/2025 6:21 AM EDT us Alon Gonsalez MD LAB BLOOD ORDERABLE S Final Result Performing Organization Address [facility] Co de Phone Number [facility] [address] [place] [address], [place] [phone] * (ABNORMAL) D-Dimer (02/08/2025 5:30 AM EDT) Only the most recent of4 resultswithin the time period is included. Pathologist [facility] D-Dimer, Quant (D-DU) 2,207(H) <=230 ng/mL DDU [...] infected, trauma patients, DIC, acute CVA, acute ME, unstable angina, AF, old age, , and smoking. D-Dimer may be decreased with: Initiation of heparin therapy and oral anticoagulants. us Rosario Lees MD LAB BLOOD ORDERABLES Final Resu lt Performing Organization Address [facility] Co de Phone Number [facility] [address] [place] [address], [place] [phone] * (ABNORMAL) Activated Partial Thromboplastin Time - [...] ORDERABLES Final Resu lt Performing Organization Address [facility]/ZIP Co de Phone Number [facility] [address] [place] [address], [place] [phone] * Anti-Xa - Every 6 Hours (02/07/2025 [...] LAB BLOOD ORDERABLES Final Res ult [facility] [address] [facility] [place] [address], [place] [phone] * (ABNORMAL) TRANSTHORACIC ECHOCARDIOGRAM (TTE) COMPLETE W/ CONTRAST (02/07/2025 10:37 AM EDT) Left Atrium Minor [place] 6.0 cm CV PACS Left Atrium Major [place] 6.1 cm CV PACS LA Area Sys [...] - 102 g/m2 CV PACS MV Deceleration [place] 5.6 m/s2 CV PACS MV PHT 41 [...] S' 18 cm/s CV PACS RA Major [place] 5.3 cm CV PACS RA Major [place] Index 2.6 2.1 - 2.7 cm/m2 CV [...] of2 resultswithin the time period is included. [facility] High Sensitivity Troponin I 22 <=79 ng/L [...] ORDERABLES Final Resu lt Performing Organization Address City/[facility] Co de Phone Number [facility] [address] [place] [address], [place] [phone] * Thyroid stimulating hormone with reflex to free t4 and free t3 (02/07/2025 6:31 AM EDT) [facility] TSH 1.11 0.40 - 4.00 mcIU/mL LAB CHEMISTRY METHOD 02/07/2025 9:41 AM EDT [facility] Blood Venous blood specimen / Unknown Venipuncture / Unknown 02/07/2025 6:31 AM EDT 02/07/2025 7:14 AM EDT us Rosario Lees MD LAB BLOOD ORDERABLES Final Resu lt Performing Organization Address City/State/[facility] de Phone Number [facility] [address] [place] [address], * Prostate specific antigen diagnostic (02/07/2025 6:31 AM EDT) PSA 3.83 0.00 - 4.00 ng/mL LAB CHEMISTRY METHOD 02/07/2025 9:26 AM EDT [facility] Blood Venous blood specimen / Unknown Venipuncture / Unknown 02/07/2025 6:31 AM EDT 02/07/2025 7:14 AM EDT Narrative [facility] - 02/07/2025 9:26 AM EDT The Siemens Advia Huoshiaur Chemiluminescent Immunoassay is used. Results obtained with different assay methods or kits cannot be used interchangeably. Results cannot be interpreted as absolute evidence of the presence or absence of malignant disease. us Rosario Lees MD LAB BLOOD ORDERABLES Final Resu lt Performing Organization Address [facility] de Phone Number [facility] [address] [place] [address], * (ABNORMAL) Prothrombin time with INR (02/07/2025 [...] BLOOD ORDERABLES Final Resu Performing Organization Address [facility]/State/ZIP Co de Phone Number [facility] [address] [place] [address], * Hemoglobin A1c (02/07/2025 6:31 AM EDT) [facility] Hemoglobin A1C 4.5 <6.5 % LAB CHEMISTRY [...] ORDERABLES Final Resu lt Performing Organization Address City/[facility]/ZIP Co de Phone Number [facility] [address] [place] [address], * Vitamin B12 (02/07/2025 6:31 AM EDT) [facility] Vitamin B-12 345 250 - 900 pcg/mL LAB CHEMISTRY METHOD 02/07/2025 8:34 AM EDT [facility] Blood Venous blood specimen / Unknown Venipuncture / Unknown 02/07/2025 6:31 AM EDT 02/07/2025 7:14 AM EDT us Rosario Lees MD LAB BLOOD ORDERABLES Final Resu lt [facility] [address] [place] [address], [place] [phone] * (ABNORMAL) Comprehensive metabolic panel (02/07/2025 6:31 AM EDT) Only the most recent of3 resultswithin the time period is included. [facility] Sodium 138 133 - 145 mmol/L LAB CHEMISTRY METHOD 02/07/2025 8:11 AM [facility] Potassium 3.6 3.5 - 5.5 mmol/L LAB CHEMISTRY METHOD 02/07/2025 8:11 AM [facility] Chloride 105 96 - 110 mmol/L LAB CHEMISTRY METHOD 02/07/2025 8:11 AM [facility] CO2 27 21 - 32 mmol/L LAB CHEMISTRY METHOD 02/07/2025 8:11 AM [facility] Anion Gap 6 3 - 11 LAB CHEMISTRY METHOD 02/07/2025 8:11 AM [facility] Glucose 99 70 - 100 mg/dL LAB CHEMISTRY METHOD 02/07/2025 8:11 AM [facility] BUN 8 5 - 25 mg/dL LAB CHEMISTRY METHOD 02/07/2025 8:11 AM [facility] Creatinine 0.55(L) 0.70 - 1.30 mg/dL LAB CHEMISTRY METHOD 02/07/2025 8:11 AM [facility] eGFR 111 >=60 mL/min/1. 73m2 LAB CHEMISTRY METHOD 02/07/2025 8:11 AM [facility] Comment:Calculation based on the Chronic Kidney Disease Epidemiology Collaboration (CKD-EPI) equation refit without adjustment for race. BUN/Creatinine Ratio 14.5 LAB CHEMISTRY METHOD 02/07/2025 8:11 AM [facility] Calcium 8.7 8.5 - 10.5 mg/dL LAB CHEMISTRY METHOD 02/07/2025 8:11 AM [facility] AST (SGOT) 16 10 - 42 unit/L LAB CHEMISTRY METHOD 02/07/2025 8:11 AM [facility] ALT (SGPT) 12 10 - 60 unit/L LAB CHEMISTRY METHOD 02/07/2025 8:11 AM [facility] Alkaline Phosphatase 84 42 - [...] lt [facility] [address] [place] [address], * Respiratory virus panel molecular study (02/07/2025 12:37 AM EDT) Pathologist [facility] Adenovirus Detection by PCR Not Detected Not [...] EDT 02/07/2025 12:47 AM EDT Narrative [facility] ([facility]) [facility] - 02/07/2025 1:47 AM EDT Testing was performed using the [employer] Respiratory Pathogen PCR Assay. All results must [...] - GENERAL ORDE RICHARD Final Result [facility] ([facility]) [facility] [address] [place] [address], * Vascular US duplex lower extremity venous [...] Signed Date: 02/06/2025 11:50 ET Workstation ID: [id number] Transcribed By: Self Edit Transcribed Date: 02/06/2025 11:39 ET Narrative 02/06/2025 11:50 AM EDT INDICATION: Shortness of breath FINDINGS: Perfusion only scan was obtained. 5.2 mCi of technetium 99 M MAA intravenously for the perfusion portion with imaging obtained in different positions including anterior, posterior, ENGLISH, HURLEY, LPO and HURLEY views. Relevant studies: [...] imaging obtained in different positions including anterior,posterior, ENGLISH, HURLEY, LPO and HURLEY views. Relevant studies: [...] Signed Date: 02/06/2025 11:50 ET Workstation ID: [id number] Transcribed By: Self Edit Transcribed Date: 02/06/2025 [...] lt [facility] [address] [place] [address], [place] [phone] * Lavender tube (02/06/2025 6:12 AM EDT) [...] ORDERABLES Final Resu lt Performing Organization Address [facility]/ZIP Co de Phone Number [facility] [address] [place] [address], [place] [phone] * (ABNORMAL) Creatine kinase (02/06/2025 6:12 AM EDT) Total CK 14(L) 22 - 269 unit/L LAB CHEMISTRY METHOD 02/06/2025 10:33 AM EDT [facility] Comment:Results verified by repeat testing Blood Venous blood specimen / Unknown Venipuncture / Unknown 02/06/2025 6:12 AM EDT 02/06/2025 6:20 AM EDT us Rosario Lees MD LAB BLOOD ORDERABLES Final Resu lt Performing Organization Address [facility] de Phone Number [facility] [address] [place] [address], [place] [phone] * Potassium (02/05/2025 12:09 PM EDT) Pathologist [facility] Potassium 3.8 3.5 - 5.5 mmol/L LAB CHEMISTRY METHOD 02/05/2025 12:38 PM EDT [facility] Blood Venous blood specimen / Unknown Venipuncture / Unknown 02/05/2025 12:09 PM EDT 02/05/2025 12:16 PM EDT us Richie Cerna MD LAB BLOOD ORDERABLES Final Resul t Performing Organization Address City/[facility]/ZIP Co de Phone Number [facility] [address] [place] [address], [place] [phone] * CT Chest/Abdomen/Pelvis wo Contrast (02/04/2025 6:00 [...] adenopathy. Abdominal aorta is normal caliber with [id number] calcific athero sclerosis. Bowel loops reveal no [...] adenopathy. Abdominal aorta is normal caliber with [id number]-xlaffuof calcific athero sclerosis. Bowel loops reveal no [...] natriuretic peptide (02/04/2025 4:32 PM EDT) Pathologist [facility] BNP 180(H) <=100 pcg/mL LAB CHEMISTRY METHOD 02/04/2025 5:32 PM EDT [facility] Blood Venous blood specimen / Unknown Venipuncture / Unknown 02/04/2025 4:32 PM EDT 02/04/2025 4:54 PM EDT Frances Edward MD LAB BLOOD ORDERABLES Final R esult [facility] [address] [place] [address], * (ABNORMAL) Urinalysis with reflex microscopic (02/04/2025 4:13 PM EDT) [facility] Specific [place] Urine 1.010 1.003 - 1.030 LAB URINALYSIS - AUTOMATED METHOD 02/04/2025 5:08 PM [facility] pH, Urine 5.5 5.0 - 8.0 pH LAB URINALYSIS - AUTOMATED METHOD 02/04/2025 5:08 PM [facility] Leukocytes, Urine Trace(A) Negative LAB URINALYSIS - AUTOMATED METHOD 02/04/2025 5:08 PM [facility] Nitrite, Urine Negative Negative LAB URINALYSIS - AUTOMATED METHOD 02/04/2025 5:08 PM [facility] Protein, Urine Negative <=Trace mg/dL LAB URINALYSIS - AUTOMATED METHOD 02/04/2025 5:08 PM [facility] Glucose, Urine Negative Negative mg/dL LAB URINALYSIS - AUTOMATED METHOD 02/04/2025 5:08 PM [facility] Ketones, Urine Negative Negative mg/dL LAB URINALYSIS - AUTOMATED METHOD 02/04/2025 5:08 PM [facility] Urobilinogen, Urine 0.2 0.2 - 1.0 mg/dL LAB URINALYSIS - AUTOMATED METHOD 02/04/2025 5:08 PM [facility] Bilirubin, Urine Negative Negative LAB URINALYSIS - AUTOMATED METHOD 02/04/2025 5:08 PM [facility] Blood, Urine Negative Negative LAB URINALYSIS - AUTOMATED METHOD 02/04/2025 5:08 PM [facility] RBC, Urine 1.2 0 - 4 /HPF LAB URINALYSIS - AUTOMATED METHOD 02/04/2025 5:08 PM [facility] WBC, Urine 4.2(H) 0 - 4 /HPF LAB URINALYSIS - AUTOMATED METHOD 02/04/2025 5:08 PM [facility] Squamous Epithelial, Urine 12 0 - 60 /LPF LAB URINALYSIS - AUTOMATED METHOD 02/04/2025 5:08 PM [facility] Bacteria, Urine Negative Negative /HPF LAB URINALYSIS - AUTOMATED METHOD 02/04/2025 5:08 PM [facility] Hyaline Casts, Urine 0.0 0 - 3 /LPF LAB URINALYSIS - AUTOMATED METHOD 02/04/2025 5:08 PM [facility] Urine Urine specimen obtained by clean catch procedure / Unknown Non-blood Collection / Unknown 02/04/2025 4:13 PM EDT 02/04/2025 4:52 PM EDT us Frances Edward MD LAB URINE ORDERABLES Final R esult [facility] [address] [place] [address], * ECG 12 lead (02/04/2025 3:52 PM EDT) Ventricular Rate ECG 70 BPM GEMUSE Atrial Rate 70 BPM GEMUSE P-R Interval 172 ms GEMUSE QRS Duration 98 ms GEMUSE Q-T Interval 442 ms GEMUSE QTc 477 ms GEMUSE P Wave [place] 34 degrees GEMUSE R [place] -2 degrees GEMUSE T [place] -16 degrees GEMUSE ECG Interpretation Normal sinus rhythm Normal ECG No previous ECGs available Confirmed by LISSA SAUL ([id number]) on 02/05/2025 7:17:54 AM GEMUSE 02/04/2025 3:52 PM EDT 02/05/2025 7:17 AM EDT us Frances Edward MD ECG ORDERABLES Final Result GEMUSE * (ABNORMAL) Urinalysis with reflex microscopic and culture (01/28/2025 6:57 PM EDT) Specific [place] Urine 1.010 1.003 - 1.030 LAB URINALYSIS - AUTOMATED METHOD 01/28/2025 7:22 PM [facility] pH, Urine 7.0 5.0 - 8.0 pH LAB URINALYSIS - AUTOMATED METHOD 01/28/2025 7:22 PM [facility] Leukocytes, Urine Small(A) Negative LAB URINALYSIS - AUTOMATED METHOD 01/28/2025 7:22 PM [facility] Nitrite, Urine Negative Negative LAB URINALYSIS - AUTOMATED METHOD 01/28/2025 7:22 PM [facility] Protein, Urine Negative <=Trace mg/dL LAB URINALYSIS - AUTOMATED METHOD 01/28/2025 7:22 PM [facility] Glucose, Urine Negative Negative mg/dL LAB URINALYSIS - AUTOMATED METHOD 01/28/2025 7:22 PM [facility] Ketones, Urine Negative Negative mg/dL LAB URINALYSIS - AUTOMATED METHOD 01/28/2025 7:22 PM [facility] Urobilinogen, Urine 1.0 0.2 - 1.0 mg/dL LAB URINALYSIS - AUTOMATED METHOD 01/28/2025 7:22 PM EDT [facility] Bilirubin, Urine Negative Negative LAB URINALYSIS - AUTOMATED METHOD 01/28/2025 7:22 PM EDT [facility] Blood, Urine Negative Negative LAB URINALYSIS - AUTOMATED METHOD 01/28/2025 7:22 PM [facility] RBC, Urine 2.0 0 - 4 /HPF LAB URINALYSIS - AUTOMATED METHOD [facility] WBC, Urine 11.8(H) 0 - 4 /HPF LAB URINALYSIS - AUTOMATED METHOD 01/28/2025 7:22 PM [facility] Squamous Epithelial, Urine 14 0 - 60 /LPF LAB URINALYSIS - AUTOMATED METHOD 01/28/2025 7:22 PM [facility] Bacteria, Urine Few(A) Negative /HPF LAB URINALYSIS - AUTOMATED METHOD 01/28/2025 7:22 PM [facility] Hyaline Casts, Urine 0.0 0 - 3 /LPF LAB URINALYSIS - AUTOMATED METHOD 01/28/2025 7:22 PM [facility] Urine Urine specimen obtained by clean catch procedure / Unknown Non-blood Collection / Unknown 01/28/2025 6:57 PM EDT 01/28/2025 7:12 PM EDT us Chelo Salazar DO LAB URINE ORDERABLES Final Re sult [facility] [address] [place] [address], * Mnoroy urine culture tube (01/28/2025 6:57 PM EDT) Extra Tube Hold for add-ons. 01/28/2025 9:01 PM EDT [facility] Comment:Auto resulted. Urine Urine specimen obtained by clean catch procedure / Unknown Non-blood Collection / Unknown 01/28/2025 6:57 PM EDT 01/28/2025 7:12 PM EDT [facility] URINE ORDERABLES Final Re sult Performing Organization Address [facility]/ZIP Co de Phone Number [facility] [address] [place] [address], [place] [phone] * (ABNORMAL) Culture urine (01/28/2025 6:57 PM EDT) [facility] Culture, Urine >=100,000 CFU/mL Enterococcus faecalis(A) JOSH [...] Enterococcus faecalis Nitrofurantoin JOSH <=16 ug/ml: Susceptible [facility] MICROBIOLOGY - GENERAL OR DERABLES Final Result [facility] [address] [place] [address], [place] [phone] from Last 3 Months Insurance ) Advance Directives Documents on File Type Date Recorded 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
== END 2025-04-07 15:17 | disposition home or self-care (01) ==
LOC: HO.HNS 13:32
PROVIDERS: Visit Provider Physician Assistant
DX: Z98.1 Arthrodesis status (principal); G95.9 Disease of spinal cord, unspecified
CPT/HCPCS: 99024